=== PATIENT | male | born 1940 | race Caucasian/White ===

== ENCOUNTER 2016-05-17 16:29 | Observation (INO) | payer OTHER ==
[~2016-05-17] VITALS: Ht 182.9 cm; Wt 103.0 kg
[~2016-05-17 16:29] MED LIST: ADVAI250I PO; ALPR1TAB3 PO; AMLO10 PO; ATEN-104 PO; CALC500T21 PO; FOLI400T30 PO; GABA300C3 PO; LISI-587 PO; MULT-65 PO; POTA-243 PO; PRAV20 PO; SERT-132 PO; TRAZ50TA4 PO; Z.0.OXYGENDME NC
[2016-05-17] MEDS ORDERED: SODIUM CHLORIDE 0.9% FLUSH 5 ML FLUSH IVF PRN (18:00)
[2016-05-17 18:10] VITALS: BP 139/78; PULSE 80; RESP 16; O2SAT 97
--- NOTE | 2016-05-17 18:11 | PD ---
HPI Chief Complaint: Fall Time Seen by Provider: 17:55 Travel History International Travel<30 days: No Contact w/Intl Traveler<30days: No Traveled to known affect area: No History of Present Illness HPI 76 year old male presents via EMS for evaluation after fall. According to the paramedics the patient was walking up the steps to his front door when he fell backwards and struck the back of his head against the ground. The paramedics report that his friend witnessed the fall and there was a loss of consciousness briefly. The patient does not recall falling. There was no witnessed seizure activity. He is denying any pain. He denies any dizziness, lightheadedness, headache, neck pain, nausea or vomiting, chest pain, shortness of breath, abdominal pain, numbness or tingling or weakness in the extremities. He is not on any blood thinning medications. He has no complaints at this time. PFSH Past Medical History Blood Disorders: No Anxiety: Yes Depression: No Cancer: Yes (LUNG CANCER chemo and radiation [id number]. remission. Port r chest ) Cardiovascular Problems: Yes (htn) High Cholesterol: No Chemotherapy: Yes Chest Pain: No Congestive Heart Failure: No COPD: Yes Diabetes: No Diminished Hearing: No Endocrine: No Gastrointestinal Disorders: No Genitourinary: No Hepatitis: No Hiatal Hernia: No Hypertension: Yes Immune Disorder: No Implanted Vascular Access Dvce: Yes Musculoskeletal: No Neurologic: No Psychiatric: Yes (ANXIETY) Reproductive: No Respiratory: Yes (COPD) Immunizations Current: Yes Radiation Therapy: Yes Sleep Apnea: No Thyroid Disease: No Past Surgical History Abdominal Surgery: Yes AICD: No Body Medical Devices: L PORT Cardiac Surgery: No Cholecystectomy: Yes Ear Surgery: No Endocrine Surgery: No Eye Surgery: No Genitourinary Surgery: No Gynecologic Surgery: No Joint Replacement: No Neurologic Surgery: No Oral Surgery: No Pacemaker: No Thoracic Surgery: No Other Surgery: Yes Social History Alcohol Use: No Tobacco Use: No Substance Use: No Allergies-Medications (Allergen,Severity, Reaction): Coded Allergies: No Known Allergies (Unverified , 05/17/16) Reported Meds & Prescriptions Reported Meds & Active Scripts Active Reported Folic Acid 400 Mcg Tab 600 Mcg PO DAILY [place] (Hydrocodone-Acetaminophen) 5-325 mg Tab 1 Tab PO DAILY Tizanidine (Tizanidine HCl) 4 Mg Tab 4 Mg PO TID PRN Advair Diskus Inh (Fluticasone-Salmeterol Inh) 250-50 Mcg/Blist Aer 1 Puff INH BID Rinse mouth after use. Klor-Con 10 (Potassium Chloride) 10 Meq Tab 10 Meq PO TID Amlodipine (Amlodipine Besylate) 2.5 Mg Tab 2.5 Mg PO DAILY Lisinopril-Hctz 20-25 Mg Tab 1 Tab PO DAILY Atenolol 100 Mg Tab 100 Mg PO DAILY Sertraline (Sertraline HCl) 50 Mg Tab 50 Mg PO BID Pravastatin 20 Mg Tab 20 Mg PO DAILY Gabapentin 300 Mg Cap 300 Mg PO HS Review of Systems Except as stated in HPI: all other systems reviewed are Neg Physical Exam Narrative GENERAL: Pleasant well developed well-nourished male in no acute distress cervical collar in place. Alert and oriented to person, place, time. SKIN: Warm and dry. HEAD: Atraumatic. Normocephalic. EYES: Pupils equal and round. No scleral icterus. No injection or drainage. ENT: No nasal bleeding or discharge. Mucous membranes pink and moist. NECK: Trachea midline. No JVD. CARDIOVASCULAR: Regular rate and rhythm. No murmur appreciated. RESPIRATORY: No accessory muscle use. Clear to auscultation. Breath sounds equal bilaterally. GASTROINTESTINAL: Abdomen soft, non-tender, nondistended. Hepatic and splenic margins not palpable. MUSCULOSKELETAL: No obvious deformities. NEUROLOGICAL: Awake and alert. No obvious cranial nerve deficits. Motor grossly within normal limits. Normal speech. PSYCHIATRIC: Appropriate mood and affect; insight and judgment normal. Data Data Last Documented VS Vital Signs Date Time Temp Pulse Resp B/P Pulse Ox O2 Delivery O2 Flow Rate FiO2 05/17/16 19:33 97.7 05/17/16 18:48 16 97 Room Air 05/17/16 18:10 80 139/78 Orders Electrocardiogram (05/17/16 17:50) Complete Blood Count With Diff (05/17/16 17:50) Comprehensive Metabolic Panel (05/17/16 17:50) Magnesium (Mg) (05/17/16 17:50) Act Partial Throm Time (Ptt) (05/17/16 17:50) Prothrombin Time / Inr (Pt) (05/17/16 17:50) Ct Brain W/O Iv Contrast(Rout) (05/17/16 17:50) Ct Cerv Spine W/O Contrast (05/17/16 17:50) Ecg Monitoring (05/17/16 17:50) Iv Access Insert/Monitor (05/17/16 17:50) Oximetry (05/17/16 17:50) Sodium Chloride 0.9% Flush (Ns Flush) (05/17/16 18:00) Urinalysis - C+S If Indicated (05/17/16 20:21) Admit Order (Ed Use Only) (05/17/16 21:04) Labs Laboratory Tests Test 05/17/16 18:09 White Blood Count 7.3 TH/MM3 Red Blood Count 4.40 MIL/MM3 Hemoglobin 12.8 GM/DL Hematocrit 37.9 % Mean Corpuscular Volume 86.1 FL Mean Corpuscular Hemoglobin 29.0 PG Mean Corpuscular Hemoglobin 33.7 % Concent Red Cell Distribution Width 15.0 % Platelet Count 166 TH/MM3 Mean Platelet Volume 8.7 FL Neutrophils (%) (Auto) 71.2 % Lymphocytes (%) (Auto) 16.9 % Monocytes (%) (Auto) 7.7 % Eosinophils (%) (Auto) 3.3 % Basophils (%) (Auto) 0.9 % Neutrophils # (Auto) 5.2 TH/MM3 Lymphocytes # (Auto) 1.2 TH/MM3 Monocytes # (Auto) 0.6 TH/MM3 Eosinophils # (Auto) 0.2 TH/MM3 Basophils # (Auto) 0.1 TH/MM3 CBC Comment DIFF FINAL Differential Comment Prothrombin Time 10.6 SEC Prothromb Time International 1.0 RATIO Ratio Activated Partial 28.0 SEC Thromboplast Time Sodium Level 139 MEQ/L Potassium Level 3.8 MEQ/L Chloride Level 100 MEQ/L Carbon Dioxide Level 32.8 MEQ/L Anion Gap 6 MEQ/L Blood Urea Nitrogen 16 MG/DL Creatinine 1.00 MG/DL Estimat Glomerular Filtration 73 ML/MIN Rate Random Glucose 91 MG/DL Calcium Level 9.0 MG/DL Magnesium Level 2.3 MG/DL Total Bilirubin 0.3 MG/DL Aspartate Amino Transf 18 U/L (AST/SGOT) Alanine Aminotransferase 22 U/L (ALT/SGPT) Alkaline Phosphatase 66 U/L Total Protein 7.3 GM/DL Albumin 3.5 GM/DL MDM Medical Decision Making Medical Screen Exam Complete: Yes Emergency Medical Condition: Yes Medical Record Reviewed: Yes Interpretation(s) CT brain negative CT cervical spine CONCLUSION: 1. Degenerative changes throughout the cervical spine as described above. 2. No definite acute bony abnormality is seen. 3. Multiple small lucent lesions seen throughout the cervical vertebral bodies. These are nonspecific. They could simply be manifestations of osteopenia. Underlying conditions such as metastatic disease or multiple myeloma could have a similar appearance. EKG first degree AV block Differential Diagnosis Concussion, intracranial hemorrhage, seizure, syncope, dehydration, arrhythmia Narrative Course 76-year-old male presents after a reported fall walking up the steps to his house and witnessed by a friend with loss of consciousness every struck the ground. The patient appears to be amnesic to the fall. The patient has no medical complaints at this time and he is alert and oriented with no focal neurologic deficits. Plan is for basic lab work, EKG and ECG monitoring, CT of the brain and cervical spine. Discussed with Dr. Knight who agrees with plan of care. The patient's lab work and imaging studies of the area. CT of the brain is negative. CT of the cervical spine reveals no acute fractures. There is multiple lucent lesions and the cervical spine CT which could be a sign of osteopenia or metastasis or multiple myeloma per the reading radiologist per the patient does report that he has a history of lung cancer in remission, last chemotherapy and radiation was 2 years ago. He reports that in the past to see an oncologist at [facility] Dr. Anderson but he recently left and he is trying to get referred to oncology at [place]. No known history of metastasis. Discussed the importance of follow -up regarding this issue. Given the patient's persistent amnesia to the events of the day, discussed the possibility of admitting for observation versus going home with the patient's partner and the patient and his partner would prefer to have the patient admitted. Discussed with Dr. Blackwood who agrees with admission. Procedures EKG Prior to Arrival: Yes Diagnosis Primary Impression: Concussion Qualified Code: S06.0X1A - Concussion, with loss of consciousness of 30 minutes or less, initial encounter Admitting Information Admitting Physician Requests: Observation Slick Grubbs May 17, 2016 18:10
--- NOTE | 2016-05-17 18:32 | RADRPT ---
EXAM DATE/TIME: 05/17/2016 18:19 [facility] COMPARISON: CT BRAIN W/O CONTRAST, January 28, 2016, 10:52. INDICATIONS : Fall and hit back of head today. RADIATION DOSE: 44.16 CTDIvol (mGy) MEDICAL HISTORY : Cardiovascular disease. Carcinoma, lung. SURGICAL HISTORY : None. ENCOUNTER: Initial ACUITY: 1 day PAIN SCALE: 0/10 LOCATION: cranial TECHNIQUE: Multiple contiguous axial images were obtained of the head. Using automated exposure control and adj ustment of the mA and/or kV according to patient size, radiation dose was kept as low as reasonably a chievable to obtain optimal diagnostic quality images. FINDINGS: CEREBRUM: The ventricles are normal for age. No evidence of midline shift, mass lesion, hemorrhage or acute in farction. No extra-axial fluid collections are seen. POSTERIOR FOSSA: The cerebellum and brainstem are intact. The 4th ventricle is midline. The cerebellopontine angle i s unremarkable. EXTRACRANIAL: The visualized portion of the orbits is intact. There is focal soft tissue swelling seen at the poste rior parietal occipital scalp region. SKULL: The calvaria is intact. No evidence of skull fracture. CONCLUSION: 1. No intracranial abnormality seen. 2. Posterior scalp swelling. Neftaly Sandhu MD on May 17, 2016 at 18:29 Board Certified Radiologist. This report was verified electronically.
--- NOTE | 2016-05-17 18:46 | RADRPT ---
EXAM DATE/TIME: 05/17/2016 18:19 [facility] COMPARISON: CT BRAIN W/O CONTRAST, May 17, 2016, 18:19. INDICATIONS : Fall and hit back of head today. RADIATION DOSE: 21.48 CTDIvol (mGy) MEDICAL HISTORY : Cardiovascular disease. Carcinoma, lung. SURGICAL HISTORY : None. ENCOUNTER: Initial ACUITY: 1 day PAIN SCALE: 0/10 LOCATION: Neck TECHNIQUE: Volumetric scanning of the cervical spine was performed. Multiplanar reconstructions in the sagittal, coronal and oblique axial planes were performed. Using automated exposure control and adjustment o f the mA and/or kV according to patient size, radiation dose was kept as low as reasonably achievable to obtain optimal diagnostic quality images. FINDINGS: The craniovertebral junction is intact. The C1 ring is intact. The C1-C2 articulation and dens are i ntact. Cervical vertebral bodies are normal in height and grossly normally aligned. There are sever al small lucencies seen throughout the cervical vertebral bodies including at C2, C3, C4, C5 and C7. These are nonspecific. Underlying lucent bone lesions could have this appearance. Changes of osteo penia or multiple myeloma could potentially have this appearance. They are nonspecific. C2-C3: The disc demonstrates decreased height. A significant impression on the thecal sac is not seen. The neural foramina are normal. There is mild facet hypertrophy. C3-C4: The disc demonstrates decreased height. There is mild bulging. There is uncovertebral and facet hype rtrophy causing some narrowing of the right neural foramina. The left neural foramina appears intact . C4-C5: Disc space is narrowed. There is minimal bulging and osteophytic ridging. There is uncovertebral and facet hypertrophy being worse on the left. Some mild narrowing of the left neural foramina is presen t. The right neural foramina appears patent. C5-C6: The disc space is very prominently narrowed. There is mild posterior osteophytic ridging causing at least a mild impression on the anterior aspect of the thecal sac. There is uncovertebral hypertrophy and facet hypertrophy. The neural foramina are grossly patent. C6-C7: The disc space is relatively preserved. A significant impression on the thecal sac is not seen. The neural foramina are normal. There is bilateral facet hypertrophy. C7-T1: There is minimal anterior subluxation of C7 on T1 in the order of 2 mm. A significant impression on the thecal sac is not seen. The neural foramina are normal. CONCLUSION: 1. Degenerative changes throughout the cervical spine as described above. 2. No definite acute bony abnormality is seen. 3. Multiple small lucent lesions seen throughout the cervical vertebral bodies. These are nonspecific . They could simply be manifestations of osteopenia. Underlying conditions such as metastatic disea se or multiple myeloma could have a similar appearance. Neftaly Sandhu MD on May 17, 2016 at 18:31 Board Certified Radiologist. This report was verified electronically.
[2016-05-17 18:48] VITALS: RESP 16; O2SAT 97
[2016-05-17] MEDS ORDERED: NORC5TAB PO (19:03)
[2016-05-17] MEDS ORDERED: AMLO2.5T PO (19:03)
[2016-05-17] MEDS ORDERED: TIZA4TAB PO (19:03)
[2016-05-17] MEDS ORDERED: PRAV20TA2 PO (19:03)
[2016-05-17] MEDS ORDERED: LISI20TA3 PO (19:03)
[2016-05-17] MEDS ORDERED: FOLI400T PO (19:03)
[2016-05-17] MEDS ORDERED: ADVA250A INH (19:03)
[2016-05-17] MEDS ORDERED: POTA-243 PO (19:03)
[2016-05-17] MEDS ORDERED: ATEN100T PO (19:03)
[2016-05-17] MEDS ORDERED: SERT-132 PO (19:03)
[2016-05-17] MEDS ORDERED: GABA300C5 PO (19:03)
[2016-05-17 19:23] LABS: AUTOMATED NEUTROPHIL # 5.2 TH/MM3 (1.8-7.7); BASOPHIL # 0.1 TH/MM3 (0-0.2); BASOPHIL % 0.9 % (0.0-2.0); EOSINOPHIL # 0.2 TH/MM3 (0-0.4); EOSINOPHIL % 3.3 % (0.0-4.0); HEMATOCRIT 37.9 % (39.0-51.0); HEMO FLAGS DIFF FINAL; LYMPH % 16.9 % (9.0-44.0); LYMPHOCYTE # 1.2 TH/MM3 (1.0-4.8); MEAN CELL VOLUME 86.1 FL (80.0-100.0); MEAN CORPUSCULAR HGB CONC 33.7 % (32.0-36.0); MONO % 7.7 % (0.0-8.0); NEUT % 71.2 % (16.0-70.0); PLATELET COUNT 166 TH/MM3 (150-450); WHITE BLOOD COUNT 7.3 TH/MM3 (4.0-11.0)
[2016-05-17 19:31] LABS: PROTHROMBIN TIME - PATIENT 10.6 SEC (9.8-11.6)
[2016-05-17 19:33] VITALS: TEMP 97.7
[2016-05-17 19:45] LABS: ANION GAP 6 MEQ/L (5-15); AST (GOT) 18 U/L (15-37); BICARBONATE 32.8 MEQ/L (21.0-32.0); BLOOD UREA NITROGEN 16 MG/DL (7-18); CHLORIDE 100 MEQ/L (98-107); GLOMERULAR FILTRATION RATE 73 ML/MIN (>89); MAGNESIUM 2.3 MG/DL (1.5-2.5); POTASSIUM 3.8 MEQ/L (3.5-5.1); SODIUM (NA) 139 MEQ/L (136-145)
[2016-05-17 19:48] LABS: ALKALINE PHOSPHATASE 66 U/L (45-117); ALT (GPT) 22 U/L (12-78); TOTAL BILIRUBIN ADULT 0.3 MG/DL (0.2-1.0)
--- NOTE | 2016-05-17 20:49 | PD ---
Physical Exam Date Seen by Provider: May 17, 2016 Time Seen by Provider: 08:30 Narrative I'm seeing this patient with Slick Grubbs PA-C. This is a 76-year-old gentleman had a mechanical fall while using his walker. He fell backwards striking the back of his head. The patient was amnestic to the event and still is. When patient initially arrived he had some confusion that is somewhat resolved. I also had C-spine CT and brain. Brain CT shows no evidence of acute intracranial abnormalities. There was a cephalohematoma noted in his posterior scalp. Cervical spine CT showed questionable mottling that could be consistent with a neoplastic process. The patient does have a history of lung cancer that was reportedly in an remission. The patient be admitted for observation. On examination he does have a cephalohematoma. He also reports that he's been told he has a UTI although has not started treatment for this. Urinalysis was ordered. Data Data Last Documented VS Vital Signs Date Time Temp Pulse Resp B/P Pulse Ox O2 Delivery O2 Flow Rate FiO2 05/17/16 19:33 97.7 05/17/16 18:48 16 97 Room Air 05/17/16 18:10 80 139/78 Orders Electrocardiogram (05/17/16 17:50) Complete Blood Count With Diff (05/17/16 17:50) Comprehensive Metabolic Panel (05/17/16 17:50) Magnesium (Mg) (05/17/16 17:50) Act Partial Throm Time (Ptt) (05/17/16 17:50) Prothrombin Time / Inr (Pt) (05/17/16 17:50) Ct Brain W/O Iv Contrast(Rout) (05/17/16 17:50) Ct Cerv Spine W/O Contrast (05/17/16 17:50) Ecg Monitoring (05/17/16 17:50) Iv Access Insert/Monitor (05/17/16 17:50) Oximetry (05/17/16 17:50) Sodium Chloride 0.9% Flush (Ns Flush) (05/17/16 18:00) Urinalysis - C+S If Indicated (05/17/16 20:21) Labs Laboratory Tests Test 05/17/16 18:09 White Blood Count 7.3 TH/MM3 Red Blood Count 4.40 MIL/MM3 Hemoglobin 12.8 GM/DL Hematocrit 37.9 % Mean Corpuscular Volume 86.1 FL Mean Corpuscular Hemoglobin 29.0 PG Mean Corpuscular Hemoglobin 33.7 % Concent Red Cell Distribution Width 15.0 % Platelet Count 166 TH/MM3 Mean Platelet Volume 8.7 FL Neutrophils (%) (Auto) 71.2 % Lymphocytes (%) (Auto) 16.9 % Monocytes (%) (Auto) 7.7 % Eosinophils (%) (Auto) 3.3 % Basophils (%) (Auto) 0.9 % Neutrophils # (Auto) 5.2 TH/MM3 Lymphocytes # (Auto) 1.2 TH/MM3 Monocytes # (Auto) 0.6 TH/MM3 Eosinophils # (Auto) 0.2 TH/MM3 Basophils # (Auto) 0.1 TH/MM3 CBC Comment DIFF FINAL Differential Comment Prothrombin Time 10.6 SEC Prothromb Time International 1.0 RATIO Ratio Activated Partial 28.0 SEC Thromboplast Time Sodium Level 139 MEQ/L Potassium Level 3.8 MEQ/L Chloride Level 100 MEQ/L Carbon Dioxide Level 32.8 MEQ/L Anion Gap 6 MEQ/L Blood Urea Nitrogen 16 MG/DL Creatinine 1.00 MG/DL Estimat Glomerular Filtration 73 ML/MIN Rate Random Glucose 91 MG/DL Calcium Level 9.0 MG/DL Magnesium Level 2.3 MG/DL Total Bilirubin 0.3 MG/DL Aspartate Amino Transf 18 U/L (AST/SGOT) Alanine Aminotransferase 22 U/L (ALT/SGPT) Alkaline Phosphatase 66 U/L Total Protein 7.3 GM/DL Albumin 3.5 GM/DL [facility] Medical Record Reviewed: Yes Supervised Visit with JESSICA: Yes Differential Diagnosis Medication treatment no hemorrhage versus concussion versus metastatic neoplastic process of the cervical spine versus UTI Narrative Course 76-year-old gentleman who fell backwards striking the back of his head. Patient is amnestic to event. The patient still amnestic event and has somewhat mild confusion. Given this, he'll be admitted for observation. The findings of the CT scan of the cervical spine were discussed both with the patient and his partner. It is recommended that he follow up with oncology to have this further evaluated. There is a call out to the [facility] for observation [facility]. Diagnosis Primary Impression: Concussion Qualified Code: S06.0X1A - Concussion, with loss of consciousness of 30 minutes or less, initial encounter Additional Impression: UTI (urinary tract infection) John Knight MD May 17, 2016 20:49
[2016-05-17] MEDS ORDERED: MORPHINE SULFATE 4 MG/ML INJ IV PRN (21:30)
[2016-05-17] MEDS ORDERED: BISACODYL 10 MG SUPP PR PRN (21:30)
[2016-05-17] MEDS ORDERED: ACETAMINOPHEN/HYDROcodone 325 MG/5 MG TAB PO PRN (21:30)
[2016-05-17] MEDS ORDERED: SODIUM CHLORIDE 0.9% FLUSH 5 ML FLUSH FLUSH PRN (21:30)
[2016-05-17] MEDS ORDERED: ACETAMINOPHEN 325 MG TAB PO PRN (21:30)
[2016-05-17] MEDS ORDERED: ONDANSETRON HCL 4 MG/2 ML VIAL IVP PRN (21:30)
--- NOTE | 2016-05-17 21:52 | RADRPT ---
EXAM DATE/TIME: 05/17/2016 21:37 [facility] COMPARISON: CHEST SINGLE AP, March 15, 2015, 15:42. INDICATIONS : Trauma to chest post fall today MEDICAL HISTORY : Cardiovascular disease. Carcinoma, lung. SURGICAL HISTORY : Port placement ENCOUNTER: Initial ACUITY: 1 day PAIN SCORE: 0/10 LOCATION: Bilateral chest FINDINGS: A single view of the chest demonstrates some linear density in the lateral left upper lung likely rel ated to scarring or atelectasis. The lungs are otherwise clear. There is a right internal jugular In fuse-a-Port in place. The cardiomediastinal contours are unremarkable. Osseous structures are intact . CONCLUSION: Linear suspected scarring or atelectasis in the left upper lobe. Neftaly Sandhu MD on May 17, 2016 at 21:50 Board Certified Radiologist. This report was verified electronically.
[2016-05-17] MEDS: SODIUM CHLOR 0.9% 1000 ML INJ 1,000 ML IV SCH (23:48)
--- NOTE | 2016-05-18 00:47 | HHI.HP ---
HPI Service [facility] Primary Care Physician Raheem Cheung MD Admission Diagnosis Concussion with amnesia Diagnoses: (1) Fall Diagnosis: Principal (2) Head trauma Diagnosis: Principal (3) COPD (chronic obstructive pulmonary disease) Diagnosis: Principal (4) HTN (hypertension) Diagnosis: Principal Travel History International Travel<30 Days: No Contact w/Intl Traveler <30 Da: No Traveled to Known Affected Are: No History of Present Illness This is a 76-year-old male with a PMH of Anxiety, Lung CA s/p Chemo/Radiation, COPD and HTN who was brought to the ER by EMS after fall w/ head trauma. Per report, pt w/ no recollection of events at the time of arrival to ER. Noted to have witnessed fall while walking up the steps to his house, fell backwards and hit head on cement. Pt now able to recall events, denies any prodromal symptoms , no dizzines, no lightheadedness. States he has peripheral neuropathy and just "overshot" his step. Roommate on scene at time of event, pt denies LOC. On arrival, BP 139/78, HR 80, O2 sat 97% on RA, Afebrile. CBC unremarkable. Chemistry essentially unremarkable except for GFR 73. CT Head with posterior scalp swelling, no acute findings. CT C-Spine with multiple small lucent lesions seen throughout cervical vertebral bodies, nonspecific. Review of Systems Except as stated in HPI: all other systems reviewed are Neg ROS: 14 point review of systems otherwise negative. Past Family Social History Past Medical History PMH: Anxiety, Lung CA s/p Chemo/Radiation, COPD and HTN Past Surgical History PAST SURGICAL HISTORY: Port Placement, Cholecystectomy Allergies: Coded Allergies: No Known Allergies (Unverified , 05/17/16) Family History PAST FAMILY HISTORY: Reviewed. No h/o DM or CAD Social History PAST SOCIAL HISTORY: Negative for alcohol, tobacco or drugs. Physical Exam Vital Signs Vital Signs Date Time Temp Pulse Resp B/P Pulse Ox O2 Delivery O2 Flow Rate FiO2 05/17/16 19:33 97.7 05/17/16 18:48 16 97 Room Air 05/17/16 18:10 80 16 139/78 97 Physical Exam PE: GENERAL: Pleasant elderly white male in no acute distress. HEENT: PERRLA, EOMI. No scleral icterus or conjunctival pallor. No lid lag or facial droop. CARDIOVASCULAR: Regular rate and rhythm. No obvious murmurs to auscultation. No chest tenderness to palpation. RESPIRATORY: No obvious rhonchi or wheezing. Clear to auscultation. Breath sounds equal bilaterally. GASTROINTESTINAL: Abdomen soft, non-tender, nondistended. BS normal. MUSCULOSKELETAL: Extremities without clubbing, cyanosis, or edema. No obvious deformities. NEUROLOGICAL: Awake, alert and oriented x4. No focal neurologic deficits. Moving both upper and lower extremities spontaneously. Laboratory Laboratory Tests Test 05/17/16 18:09 White Blood Count 7.3 Red Blood Count 4.40 Hemoglobin 12.8 Hematocrit 37.9 Mean Corpuscular Volume 86.1 Mean Corpuscular Hemoglobin 29.0 Mean Corpuscular Hemoglobin 33.7 Concent Red Cell Distribution Width 15.0 Platelet Count 166 Mean Platelet Volume 8.7 Neutrophils (%) (Auto) 71.2 Lymphocytes (%) (Auto) 16.9 Monocytes (%) (Auto) 7.7 Eosinophils (%) (Auto) 3.3 Basophils (%) (Auto) 0.9 Neutrophils # (Auto) 5.2 Lymphocytes # (Auto) 1.2 Monocytes # (Auto) 0.6 Eosinophils # (Auto) 0.2 Basophils # (Auto) 0.1 CBC Comment DIFF FINAL Differential Comment Prothrombin Time 10.6 Prothromb Time International 1.0 Ratio Activated Partial 28.0 Thromboplast Time Sodium Level 139 Potassium Level 3.8 Chloride Level 100 Carbon Dioxide Level 32.8 Anion Gap 6 Blood Urea Nitrogen 16 Creatinine 1.00 Estimat Glomerular Filtration 73 Rate Random Glucose 91 Calcium Level 9.0 Magnesium Level 2.3 Total Bilirubin 0.3 Aspartate Amino Transf 18 (AST/SGOT) Alanine Aminotransferase 22 (ALT/SGPT) Alkaline Phosphatase 66 Total Protein 7.3 Albumin 3.5 Result Diagram: 05/17/16180805/17/161808 Assessment and Plan Problem List: (1) Fall ICD Code: W19.XXXA Status: Acute (2) Head trauma ICD Code: S09.90XA Status: Acute (3) COPD (chronic obstructive pulmonary disease) ICD Code: J44.9 Status: Acute (4) HTN (hypertension) ICD Code: I10 Status: Acute Assessment and Plan A/P: 1. Fall: s/p mechanical fall while walking up steps to his home, fell backwards, hit head on cement, LOC reported by EMS, however pt denies. Initially noted to be confused on arrival to ER, now improved w/ full recollection of events. CT Head w/ posterior scalp swelling, no acute findings. CT C-Spine w/ multiple small lucent lesions throughout cervical vertebral bodies, nonspecific, images reviewed by me. Will admit for Observation. PT for eval/tx. 2. Head Trauma: as above, s/p fall w/ +head trauma on cement, CT Head w/ scalp swelling, initially confused +concussive, now improved mental status w/ full recollection of events. 3. COPD: Chronic Respiratory Failure. Stable. Resume home MDI, DuoNeb prn. 4. HTN: Controlled. BP 130's systolic, will monitor. Resume home medications. 5. DVT Prophylaxis: SCD/Teds. 6. Social work for d/c planning as needed. 7. Case discussed w/ ER physician at length. Remedios Blackwood MD May 18, 2016 00:47
[2016-05-18 04:31] LABS: AUTOMATED NEUTROPHIL # 4.2 TH/MM3 (1.8-7.7); BASOPHIL # 0.1 TH/MM3 (0-0.2); BASOPHIL % 2.1 % (0.0-2.0); EOSINOPHIL # 0.2 TH/MM3 (0-0.4); HEMATOCRIT 35.7 % (39.0-51.0); HEMO FLAGS DIFF FINAL; LYMPH % 19.4 % (9.0-44.0); LYMPHOCYTE # 1.2 TH/MM3 (1.0-4.8); MEAN CELL VOLUME 85.8 FL (80.0-100.0); MEAN CORPUSCULAR HEMOGLOBIN 28.2 PG (27.0-34.0); MEAN CORPUSCULAR HGB CONC 32.9 % (32.0-36.0); MONO % 9.4 % (0.0-8.0); NEUT % 66.1 % (16.0-70.0); PLATELET COUNT 165 TH/MM3 (150-450); RED BLOOD COUNT 4.17 MIL/MM3 (4.50-5.90); WHITE BLOOD COUNT 6.4 TH/MM3 (4.0-11.0)
[2016-05-18 05:05] LABS: ALKALINE PHOSPHATASE 50 U/L (45-117); ALT (GPT) 20 U/L (12-78); ANION GAP 4 MEQ/L (5-15); AST (GOT) 14 U/L (15-37); BICARBONATE 33.7 MEQ/L (21.0-32.0); BLOOD UREA NITROGEN 15 MG/DL (7-18); CHLORIDE 102 MEQ/L (98-107); GLOMERULAR FILTRATION RATE 79 ML/MIN (>89); SODIUM (NA) 140 MEQ/L (136-145); TOTAL BILIRUBIN ADULT 0.3 MG/DL (0.2-1.0)
[2016-05-18 05:30] VITALS: BP 136/70; PULSE 78; RESP 16; O2SAT 98
[2016-05-18 07:43] VITALS: BP 159/68; PULSE 58; RESP 16; TEMP 98.1; O2SAT 95
--- NOTE | 2016-05-18 08:43 | EKG ---
Date Performed: 05/17/2016 Time Performed: 19:07:24 PTAGE: 76 years EKG: Sinus rhythm WITH FIRST DEGREE AV BLOCK ABNORMAL ECG PREVIOUS TRACING : 01/22/2016 10.28 DOCTOR: Kumar Donato Interpretating Date/Time 05/18/2016 08:39:46
[2016-05-18] MEDS ORDERED: ATENOLOL 100 MG TAB PO SCH (09:00)
[2016-05-18] MEDS ORDERED: BUDESONIDE-FORMOTEROL 160/4.5 MCG INHALER INH SCH (09:00)
[2016-05-18] MEDS ORDERED: amLODIPine BESYLATE 5 MG TAB PO SCH (09:00)
[2016-05-18] MEDS ORDERED: SERTRALINE HCL 50 MG TAB PO SCH (09:00)
[2016-05-18] MEDS ORDERED: PRAVASTATIN SOD 20 MG TAB PO SCH (09:00)
[2016-05-18] MEDS ORDERED: SODIUM CHLORIDE 0.9% FLUSH 5 ML FLUSH FLUSH SCH (09:00)
[2016-05-18] MEDS: SODIUM CHLOR 0.9% 1000 ML INJ 1,000 ML IV SCH (09:34)
[2016-05-18 10:44] LABS: BACTERIA, URINE FEW /hpf; BLOOD, URINE TRACE (NEG); COMMENT (UR) CULTURE INDICATED; CULTURE IF INDICATED CULTURE INDICATED; GLUCOSE,URINE NEG (NEG); KETONE, URINE NEG (NEG); NITRITE,URINE NEG (NEG); URINE COLOR YELLOW (YELLW/STRAW)
[2016-05-18 11:40] VITALS: BP 172/74; PULSE 57; RESP 18; TEMP 98.2; O2SAT 97
[2016-05-18 13:30] VITALS: BP 143/65; PULSE 56; RESP 16; TEMP 97.6; O2SAT 92
--- NOTE | 2016-05-18 15:36 | HHI.PR ---
Subjective Remarks Follow-up for fall. Patient seen with significant other at bedside. The patient has some dementia baseline, partner takes care of him at home. He does have some chronic neuropathy, and missed a step yesterday. He did hit his head. , Denies any pain. He has no acute complaints at this time, feels well. He walked with PT today. They're agreeable for C. The patient does complain of some burning with urination. However he started seeing his primary care doctor for this, and is already prescribed antibiotics as outpatient. Objective Vitals Vital Signs Date Time Temp Pulse Resp B/P Pulse Ox O2 Delivery O2 Flow Rate FiO2 05/18/16 13:30 97.6 56 16 143/65 92 05/18/16 11:40 98.2 57 18 172/74 97 Nasal Cannula 2 05/18/16 07:43 98.1 58 16 159/68 95 Nasal Cannula 2 05/18/16 05:30 78 16 136/70 98 Room Air 05/17/16 19:33 97.7 05/17/16 18:48 16 97 Room Air 05/17/16 18:10 80 16 139/78 97 I/O 05/17/16 05/17/16 05/17/16 05/18/16 05/18/16 05/18/16 07:00 15:00 23:00 07:00 15:00 23:00 Intake Total 300 ml Balance 300 ml Intake Oral 300 ml # Voids 2 Result Diagram: 05/18/16 0419 05/18/16 0419 Imaging Last Impressions Head CT 05/17/161749 Signed Impressions: Service Date/Time: Tuesday, May 17, 2016 18:19 - CONCLUSION: 1. No intracranial abnormality seen. 2. Posterior scalp swelling. Neftaly Sandhu MD Cervical Spine CT 05/17/161749 Signed Impressions: Service Date/Time: Tuesday, May 17, 2016 18:19 - CONCLUSION: 1. Degenerative changes throughout the cervical spine as described above. 2. No definite acute bony abnormality is seen. 3. Multiple small lucent lesions seen throughout the cervical vertebral bodies. These are nonspecific. They could simply be manifestations of osteopenia. Underlying conditions such as metastatic disease or multiple myeloma could have a similar appearance. Neftaly Sandhu MD Chest X-Ray 05/17/16 0000 Signed Impressions: Service Date/Time: Tuesday, May 17, 2016 21:37 - CONCLUSION: Linear suspected scarring or atelectasis in the left upper lobe. Neftaly Sandhu MD Objective Remarks GENERAL: Well-developed well-nourished. In no acute distress. SKIN: Warm and dry. No lesions noted. HEENT: Normocephalic. Pupils equal and round. Mucous membranes pink and moist. CARDIOVASCULAR: Regular rate and rhythm. No murmur appreciated. RESPIRATORY: No accessory muscle use. Clear to auscultation. Breath sounds equal bilaterally. GASTROINTESTINAL: Abdomen soft, non-tender, nondistended. Bowel sounds x4. MUSCULOSKELETAL: No obvious deformities. No clubbing or cyanosis. No edema. NEUROLOGICAL: Awake and alert. No focal neurological deficits. Moves upper and lower extremities spontaneously. Normal speech. PSYCHIATRIC: Appropriate mood and affect; insight and judgment fair. A/P Problem List: (1) Fall ICD Code: W19.XXXA Status: Acute (2) Head trauma ICD Code: S09.90XA Status: Acute (3) COPD (chronic obstructive pulmonary disease) ICD Code: J44.9 Status: Acute (4) HTN (hypertension) ICD Code: I10 Status: Acute Assessment and Plan 76-year-old male with a PMH of Anxiety, Lung CA s/p Chemo/Radiation, COPD and HTN who was brought to the ER by EMS after fall w/ head trauma Fall: s/p mechanical fall while walking up steps to his home, fell backwards, hit head on cement. Reportedly confused upon arrival to the ED, currently mental baseline. CT Head w/ posterior scalp swelling, no acute findings. CT C- Spine w/ multiple small lucent lesions throughout cervical vertebral bodies, nonspecific, no acute bony abnormalities. PT consulted, recommends [facility], consult case management. UTI: UA with evidence of UTI, urine culture pending. However patient is already have this issue addressed with his PCP, antibiotics waiting to be picked up from pharmacy. IV Rocephin 1. Continue outpatient antibiotics and PCP follow-up. COPD: Chronic, Stable. Continue home MDI, DuoNeb prn. HTN: Reasonably Controlled. Continue home medications. DVT Prophylaxis: SCD/Teds. Plan of care discussed with Dr. Bowles and case management Discharge Planning Discharge patient to home with [facility] Condition on discharge: Improved Heart healthy Diet as tolerated Regular activity Rx written: None Follow-up with primary care physician Kaden Chahal May 18, 2016 15:36
--- NOTE | 2016-05-18 15:38 | HHI.FF ---
Face to Face Verification Diagnosis: (1) HTN (hypertension) (2) Fall (3) UTI (urinary tract infection) (4) Concussion (5) Head trauma (6) COPD (chronic obstructive pulmonary disease) Physical Therapy Order: Evaluate and Treat, Improve ambulation, Strength and gait training Home Health Nursing Order: Medical education Signs/symptoms of disease process Medication education-adverse effect Nursing assessment with vital signs I have seen patient Kiet Yuan on 05/18/16. My clinical findings support the need for the requested home health care services because: Ltd mobility - disease progression Deconditioned w/ increased weakness Impaired cognition/judgement High risk of falls I certify that my clinical findings support that this patient is homebound because: Impaired cognitive ability/safety Hx COPD- exertion dyspnea/weakness Unsteady gait/balance Kaden Chahal May 18, 2016 15:38
[2016-05-18] MEDS ORDERED: cefTRIAXone INJ 1,000 MG in SODIUM CHLORIDE 0.9% INJ 100 ML IV ONE (16:00)
[2016-05-18 16:09] VITALS: BP 138/70; PULSE 57; RESP 16; TEMP 97.7; O2SAT 94
[2016-05-18] MEDS ORDERED: GABAPENTIN 300 MG CAP PO SCH (21:00)
== END 2016-05-18 17:33 | disposition home or self-care (01) ==
LOC: NEPE 16:29 → NEDA 21:06 → NEDH 05-18 01:06 → NEPGCP 05-18 13:12
PROVIDERS: ADMIT Hospitalist; ATTEND Hospitalist
DX: S06.0X1A Concussion with loss of consciousness of 30 minutes or less, initial encounter (principal); N39.0 Urinary tract infection, site not specified; B96.4 Proteus (mirabilis) (morganii) as the cause of diseases classified elsewhere; I10 Essential (primary) hypertension; J44.9 Chronic obstructive pulmonary disease, unspecified; J96.10 Chronic respiratory failure, unspecified whether with hypoxia or hypercapnia; R94.31 Abnormal electrocardiogram [ECG] [EKG]; C79.51 Secondary malignant neoplasm of bone; G62.9 Polyneuropathy, unspecified; F03.90 Unspecified dementia, unspecified severity, without behavioral disturbance, psychotic disturbance, mood disturbance, and anxiety; Z92.21 Personal history of antineoplastic chemotherapy; Z92.3 Personal history of irradiation
CPT/HCPCS: 70450; 71010; 72125; 80053; 81001; 83735; 85025; 85610; 85730; 87077; 87086; 87186; 93005; 97162; 99285; G0378; G8987; G8988; J0696; J7030

== ENCOUNTER 2016-05-23 13:03 | Emergency (ER) | payer OTHER ==
[~2016-05-23] VITALS: Ht 182.9 cm; Wt 100.0 kg
[~2016-05-23 13:03] MED LIST changes: +ADVA250A INH; -ADVAI250I PO; -ALPR1TAB3 PO; -AMLO10 PO; +AMLO2.5T PO; -ATEN-104 PO; +ATEN100T PO; -CALC500T21 PO; +FOLI400T PO; -FOLI400T30 PO; -GABA300C3 PO; +GABA300C5 PO; -LISI-587 PO; +LISI20TA3 PO; -MULT-65 PO; +NORC5TAB PO; -PRAV20 PO; +PRAV20TA2 PO; +TIZA4TAB PO; -TRAZ50TA4 PO; -Z.0.OXYGENDME NC
[2016-05-23 13:08] VITALS: BP 160/69; PULSE 59; RESP 20; TEMP 97.8; O2SAT 97
[2016-05-23] MEDS ORDERED: CIPR250T52 PO (13:26)
--- NOTE | 2016-05-23 13:43 | PD ---
HPI Chief Complaint: Medical Clearance Time Seen by Provider: 13:43 Travel History International Travel<30 days: No Contact w/Intl Traveler<30days: No Traveled to known affect area: No History of Present Illness HPI 76-year-old male presents to the emergency department with his for evaluation of blood clot. He states that he found a blood clot in his brief this morning and is unsure if it was from his urine or stool. He denies any dysuria or urinary complaints. Patient's does state that he fell the night he was discharged from the hospital, May 18. He was discharged after suffering a concussion from a fall. His states that he has not fallen since. He has a witness the fall states he did not hit his head or lose consciousness. The patient denies any headache or visual changes. No neck pain or back pain. No abdominal pain. No vomiting. He does report left rib pain after the fall. He states the pain is lessening since the fall. He has a history of COPD and is on 3.5 L O2 nasal cannula at night. He denies any current shortness of breath. He also has a history of lung cancer which he is in remission for. His at bedside states that he is his caregiver it would like to remain his caregiver. He is not interested in placement for the patient. The patient is alert and oriented. PFSH Past Medical History Blood Disorders: No Anxiety: Yes Depression: No Cancer: Yes (LUNG CANCER chemo and radiation [id number]. remission. Port r chest ) Cardiovascular Problems: Yes (htn) High Cholesterol: No Chemotherapy: Yes Chest Pain: No Congestive Heart Failure: No COPD: Yes Diabetes: No Diminished Hearing: No Endocrine: No Gastrointestinal Disorders: No Genitourinary: No Hepatitis: No Hiatal Hernia: No Hypertension: Yes Immune Disorder: No Implanted Vascular Access Dvce: Yes Musculoskeletal: No Neurologic: No Psychiatric: Yes (ANXIETY) Reproductive: No Respiratory: Yes (COPD) Immunizations Current: Yes Radiation Therapy: Yes Sleep Apnea: No Thyroid Disease: No Tetanus Vaccination: > 5 Years Past Surgical History Abdominal Surgery: Yes AICD: No Body Medical Devices: L PORT Cardiac Surgery: No Cholecystectomy: Yes Ear Surgery: No Endocrine Surgery: No Eye Surgery: No Genitourinary Surgery: No Gynecologic Surgery: No Joint Replacement: No Neurologic Surgery: No Oral Surgery: No Pacemaker: No Thoracic Surgery: No Other Surgery: Yes (GALLBLADDER REMOVAL, CAROTID CLEARED, LAMENECTOMY) Social History Alcohol Use: No Tobacco Use: No Substance Use: No Allergies-Medications (Allergen,Severity, Reaction): Coded Allergies: No Known Allergies (Unverified , 05/23/16) Reported Meds & Prescriptions Reported Meds & Active Scripts Active Reported Cipro (Ciprofloxacin HCl) 250 Mg Tab 250 Mg PO BID Folic Acid 400 Mcg Tab 600 Mcg PO DAILY Tizanidine (Tizanidine HCl) 4 Mg Tab 4 Mg PO TID PRN Advair Diskus Inh (Fluticasone-Salmeterol Inh) 250-50 Mcg/Blist Aer 1 Puff INH BID Rinse mouth after use. Klor-Con 10 (Potassium Chloride) 10 Meq Tab 10 Meq PO TID Amlodipine (Amlodipine Besylate) 2.5 Mg Tab 2.5 Mg PO DAILY Lisinopril-Hctz 20-25 Mg Tab 1 Tab PO DAILY Atenolol 100 Mg Tab 100 Mg PO DAILY Sertraline (Sertraline HCl) 50 Mg Tab 50 Mg PO BID Pravastatin 20 Mg Tab 20 Mg PO DAILY Gabapentin 300 Mg Cap 300 Mg PO HS Review of Systems Except as stated in HPI: all other systems reviewed are Neg Physical Exam Narrative GENERAL: Well-developed well-nourished elderly male patient, afebrile. SKIN: Warm and dry. HEAD: Normocephalic. Atraumatic. ENT: Mucosa pink and moist. No erythema or exudates. No uvular edema. No uvular , palatal, or tonsillar deviation. Airway patent. Nasal turbinates appear normal without nasal blood, purulent drainage or septal hematoma. Bilateral tympanic membranes are clear without erythema or perforation. EYES: No scleral icterus. No injection or drainage. PERRLA. EOM intact. NECK: Supple, trachea midline. No JVD or lymphadenopathy. CARDIOVASCULAR: Regular rate and rhythm without murmurs, gallops, or rubs. RESPIRATORY: Breath sounds equal bilaterally. No accessory muscle use. GASTROINTESTINAL: Abdomen soft, non-tender, nondistended. No abdominal pain to palpation. MUSCULOSKELETAL: No cyanosis, or edema. Patient has left-sided anterior rib pain to palpation. BACK: Nontender without obvious deformity. No CVA tenderness. No midline spinal tenderness. RECTAL EXAM: No masses or tenderness, stool is brown. Rectal exam was done with nurse at bedside. Data Data Last Documented VS Vital Signs Date Time Temp Pulse Resp B/P Pulse Ox O2 Delivery O2 Flow Rate FiO2 05/23/16 14:14 56 18 128/60 98 Nasal Cannula 3 05/23/16 13:08 97.8 Orders Electrocardiogram (05/23/16 13:40) Complete Blood Count With Diff (05/23/16 13:40) Comprehensive Metabolic Panel (05/23/16 13:40) Magnesium (Mg) (05/23/16 13:40) Ckmb (Isoenzyme) Profile (05/23/16 13:40) Troponin I (05/23/16 13:40) Urinalysis - C+S If Indicated (05/23/16 13:40) Chest, Single Ap (05/23/16 13:40) Ecg Monitoring (05/23/16 13:40) Iv Access Insert/Monitor (05/23/16 13:40) Oximetry (05/23/16 13:40) Sodium Chloride 0.9% Flush (Ns Flush) (05/23/16 13:45) Sodium Chlorid 0.9% 500 Ml Inj (Ns 500 M (05/23/16 15:00) Ct Abd/Pel W/O Iv Contrast (05/23/16 ) Labs Laboratory Tests Test 05/23/16 05/23/16 14:00 15:00 White Blood Count 7.2 TH/MM3 Red Blood Count 4.29 MIL/MM3 Hemoglobin 12.3 GM/DL Hematocrit 36.9 % Mean Corpuscular Volume 85.9 FL Mean Corpuscular Hemoglobin 28.7 PG Mean Corpuscular Hemoglobin 33.4 % Concent Red Cell Distribution Width 15.2 % Platelet Count 167 TH/MM3 Mean Platelet Volume 7.9 FL Neutrophils (%) (Auto) 69.4 % Lymphocytes (%) (Auto) 16.1 % Monocytes (%) (Auto) 10.0 % Eosinophils (%) (Auto) 3.5 % Basophils (%) (Auto) 1.0 % Neutrophils # (Auto) 5.0 TH/MM3 Lymphocytes # (Auto) 1.2 TH/MM3 Monocytes # (Auto) 0.7 TH/MM3 Eosinophils # (Auto) 0.2 TH/MM3 Basophils # (Auto) 0.1 TH/MM3 CBC Comment DIFF FINAL Differential Comment Sodium Level 143 MEQ/L Potassium Level 4.1 MEQ/L Chloride Level 105 MEQ/L Carbon Dioxide Level 33.2 MEQ/L Anion Gap 5 MEQ/L Blood Urea Nitrogen 18 MG/DL Creatinine 0.98 MG/DL Estimat Glomerular Filtration 74 ML/MIN Rate Random Glucose 98 MG/DL Calcium Level 9.3 MG/DL Magnesium Level 2.0 MG/DL Total Bilirubin 0.3 MG/DL Aspartate Amino Transf 19 U/L (AST/SGOT) Alanine Aminotransferase 27 U/L (ALT/SGPT) Alkaline Phosphatase 56 U/L Total Creatine Kinase 39 U/L Troponin I LESS THAN 0.02 NG/ML Total Protein 6.8 GM/DL Albumin 3.3 GM/DL Urine Color YELLOW Urine Turbidity HAZY Urine pH 6.0 Urine Specific [place] 1.015 Urine Protein NEG mg/dL Urine Glucose (UA) NEG mg/dL Urine Ketones NEG mg/dL Urine Occult Blood MOD Urine Nitrite NEG Urine Bilirubin NEG Urine Urobilinogen LESS THAN 2.0 MG/DL Urine Leukocyte Esterase NEG Urine RBC 45 /hpf Urine WBC 3 /hpf Urine Squamous Epithelial <1 /hpf Cells Microscopic Urinalysis Comment CULT NOT INDICATED MDM Medical Decision Making Medical Screen Exam Complete: Yes Emergency Medical Condition: Yes Medical Record Reviewed: Yes Interpretation(s) Last Impressions Chest X-Ray 05/23/16 1340 Signed Impressions: Service Date/Time: Monday, May 23, 2016 13:51 - CONCLUSION: Stable scar in the left upper lobe. Otherwise, no acute finding is identified. Neftaly Dean MD CT abdomen/pelvis - CONCLUSION: 1. No definite renal stones are identified. There is a 3 mm renal stone versus vascular calcification in the right lower pole kidney. There are no signs of urinary obstruction. 2. There are 2 cystic lesion the left kidney which have features characteristic of simple renal cysts. 3. Nonacute findings include severe atherosclerotic disease, small hiatal hernia , and sigmoid diverticulosis. Differential Diagnosis Hematuria versus hematochezia versus electrolyte abnormality versus dehydration versus rib fracture versus pneumonia versus pneumothorax versus rib contusion Narrative Course 76-year-old male presents to the emergency department stating he found a blood clot in his brief this morning is unsure became him his rectum orthopedist. He denies any associated complaints. He does report left-sided rib pain after a fall that occurred on May 18, 5 days ago. He denies any other complaints other than generalized weakness which is an ongoing complaint. EKG, CBC, CMP, magnesium, CK, troponin, UA, chest x-ray are ordered and pending. EKG shows sinus bradycardia with first degree AV block, HR 54, unchanged since previous EKG. CBC shows hemoglobin 12.3, hematocrit 36.9 which is stable. CMP shows no acute abnormality. Magnesium is 2.0. CK is 39. Troponin is less than 0.02. UA shows moderate occult blood, 45 RBCs, no evidence of acute infection. Chest x-ray shows stable scar in the left upper lobe. Otherwise, no acute finding is identified. Ct abdomen/pelvis is ordered and shows 1. No definite renal stones are identified. There is a 3 mm renal stone versus vascular calcification in the right lower pole kidney. There are no signs of urinary obstruction; 2. There are 2 cystic lesion the left kidney which have features characteristic of simple renal cysts; 3. Nonacute findings include severe atherosclerotic disease , small hiatal hernia, and sigmoid diverticulosis. I discussed the case with my attending physician, Dr. Browning who agrees and plan, workup, disposition. The patient is stable for discharge home. He is instructed follow-up with urologist for hematuria. Otherwise, he feels fine. Patient is instructed to return for any acute worsening of symptoms. Patient and his spouse verbalize agreement. The patient was discharged in stable condition with instructions, including return instructions and follow up instructions. HemaPrompt Point of Care Internal Pos. & Neg. Controls: Passed Fecal Specimen Occult Blood: Negative Diagnosis Primary Impression: Hematuria Additional Impression: Rib contusion Qualified Code: S20.212A - Rib contusion, left, initial encounter Referrals: Urologist call for appointment Patient Instructions: General Instructions, Hematuria (ED), Rib Contusion (ED) Additional Instructions: Follow up with urologist. Return to the emergency department for any acute, worsening of symptoms. Med/Other Pt SpecificInfo: No Change to Meds Disposition: 01 DISCHARGE HOME Condition: Stable EricNataliia May 23, 2016 13:43
[2016-05-23 13:45] VITALS: RESP 20; O2SAT 97
[2016-05-23] MEDS: SODIUM CHLORIDE 0.9% FLUSH 5 ML FLUSH IVF PRN ×2 (13:45→16:00)
[2016-05-23 14:14] VITALS: BP 128/60; PULSE 56; RESP 18; O2SAT 98
[2016-05-23 14:19] LABS: BASOPHIL # 0.1 TH/MM3 (0-0.2); EOSINOPHIL # 0.2 TH/MM3 (0-0.4); EOSINOPHIL % 3.5 % (0.0-4.0); HEMATOCRIT 36.9 % (39.0-51.0); HEMO FLAGS DIFF FINAL; LYMPH % 16.1 % (9.0-44.0); LYMPHOCYTE # 1.2 TH/MM3 (1.0-4.8); MEAN CELL VOLUME 85.9 FL (80.0-100.0); MEAN CORPUSCULAR HEMOGLOBIN 28.7 PG (27.0-34.0); MEAN CORPUSCULAR HGB CONC 33.4 % (32.0-36.0); NEUT % 69.4 % (16.0-70.0); PLATELET COUNT 167 TH/MM3 (150-450); RED BLOOD COUNT 4.29 MIL/MM3 (4.50-5.90); RED CELL DISTRIBUTION WIDTH 15.2 % (11.6-17.2); WHITE BLOOD COUNT 7.2 TH/MM3 (4.0-11.0)
[2016-05-23 14:33] LABS: ALT (GPT) 27 U/L (12-78); ANION GAP 5 MEQ/L (5-15); AST (GOT) 19 U/L (15-37); BICARBONATE 33.2 MEQ/L (21.0-32.0); BLOOD UREA NITROGEN 18 MG/DL (7-18); CHLORIDE 105 MEQ/L (98-107); GLOMERULAR FILTRATION RATE 74 ML/MIN (>89); POTASSIUM 4.1 MEQ/L (3.5-5.1); SODIUM (NA) 143 MEQ/L (136-145)
[2016-05-23 14:37] LABS: ALKALINE PHOSPHATASE 56 U/L (45-117); TOTAL BILIRUBIN ADULT 0.3 MG/DL (0.2-1.0)
[2016-05-23 14:39] LABS: CREATINE KINASE 39 U/L (39-308)
--- NOTE | 2016-05-23 14:49 | RADRPT ---
EXAM DATE/TIME: 05/23/2016 13:51 [facility] COMPARISON: CHEST PA & LAT, January 22, 2016, 12:25. CHEST SINGLE AP, May 17, 2016, 21:37. INDICATIONS : Chest pain. MEDICAL HISTORY : Cardiovascular disease. Carcinoma, lung. SURGICAL HISTORY : Infusaport placement ENCOUNTER: Initial ACUITY: 1 day PAIN SCORE: 0/10 LOCATION: Bilateral chest FINDINGS: Portable AP view of the chest demonstrates a normal-sized cardiac silhouette. No effusion, consolidat ion, or pneumothorax is visualized. Linear opacity left upper lobe is stable. The bones and soft tiss ues demonstrate no acute abnormality. Right chest wall [id number] is present with distal tip in th e superior vena cava. CONCLUSION: Stable scar in the left upper lobe. Otherwise, no acute finding is identified. Neftaly Dean MD on May 23, 2016 at 14:40 Board Certified Radiologist. This report was verified electronically.
[2016-05-23] MEDS ORDERED: SODIUM CHLORID 0.9% 500 ML INJ 500 ML IV ONE (15:00)
[2016-05-23 15:31] LABS: BLOOD, URINE MOD (NEG); COMMENT (UR) CULT NOT INDICATED; CULTURE IF INDICATED CULT NOT INDICATED; GLUCOSE,URINE NEG (NEG); KETONE, URINE NEG (NEG); NITRITE,URINE NEG (NEG); SQUAMOUS EPITHELIAL CELL URINE <1 /hpf (0-5); URINE COLOR YELLOW (YELLW/STRAW)
--- NOTE | 2016-05-23 16:28 | RADRPT ---
EXAM DATE/TIME: 05/23/2016 16:00 [facility] COMPARISON: No previous studies available for comparison. INDICATIONS : Hematuria and abdominal pain. ORAL CONTRAST: No oral contrast ingested. RADIATION DOSE: 8.54 CTDIvol (mGy) MEDICAL HISTORY : Cardiovascular disease. Hypertension. Carcinoma, lung. SURGICAL HISTORY : Cholecystectomy. Lumbar surgery. ENCOUNTER: Initial ACUITY: 1 day PAIN SCALE: 6/10 LOCATION: Bilateral flank TECHNIQUE: Volumetric scanning of the abdomen and pelvis was performed. Using automated exposure control and ad justment of the mA and/or kV according to patient size, radiation dose was kept as low as reasonably achievable to obtain optimal diagnostic quality images. FINDINGS: LOWER LUNGS: The visualized lower lungs are clear. LIVER: Homogeneous density without lesion. There is no dilation of the biliary tree. Patient is post jake cystectomy clips in the gallbladder fossa. SPLEEN: Enlarged measuring 15 cm in length. No focal lesion is seen. PANCREAS: Within normal limits. KIDNEYS: Normal in size and shape. There is no mass or hydronephrosis. There is a 3 mm density in the region of the right lower pole collecting system. Based on the appearance I favor vascular calcification ove r renal stone. There are 2 low-density lesions in the left kidney measuring 6.7 cm and 2.[address] density measurements characteristic of simple cyst. ADRENAL GLANDS: Within normal limits. VASCULAR: There is no aortic aneurysm. There is severe atherosclerotic disease. BOWEL/MESENTERY: The stomach, small bowel, and colon demonstrate no acute abnormality. There is sigmoid diverticulosi s. There is no free intraperitoneal air or fluid. A small hiatal hernia is present. ABDOMINAL WALL: Within normal limits. RETROPERITONEUM: There is no lymphadenopathy. BLADDER: No wall thickening or mass. REPRODUCTIVE: Within normal limits. INGUINAL: There is no lymphadenopathy or hernia. MUSCULOSKELETAL: There are degenerative changes of the lumbar spine with severe facet arthrosis inferiorly. There has been prior laminectomy at L4-L5 and L5-S1. CONCLUSION: 1. No definite renal stones are identified. There is a 3 mm renal stone versus vascular calcification in the right lower pole kidney. There are no signs of urinary obstruction. 2. There are 2 cystic lesion the left kidney which have features characteristic of simple renal cysts . 3. Nonacute findings include severe atherosclerotic disease, small hiatal hernia, and sigmoid diverti culosis. Neftaly Dean MD on May 23, 2016 at 16:20 Board Certified Radiologist. This report was verified electronically.
[2016-05-23 16:37] VITALS: BP 130/77; TEMP 97.8
--- NOTE | 2016-05-23 17:02 | PD ---
Physical Exam Narrative GENERAL: Well-nourished, well-developed patient. Well-appearing SKIN: Warm and dry. HEAD: Normocephalic and atraumatic. EYES: No injection or drainage. ENT: No nasal drainage noted. NECK: Supple, trachea midline. CARDIOVASCULAR: Regular rate and rhythm RESPIRATORY: No increased effort. No accessory muscle use. NEUROLOGICAL: Awake and alert. Motor and sensory grossly within normal limits. Normal speech. Data Data Last Documented VS Vital Signs Date Time Temp Pulse Resp B/P Pulse Ox O2 Delivery O2 Flow Rate FiO2 05/23/16 14:14 56 18 128/60 98 Nasal Cannula 3 05/23/16 13:08 97.8 Orders Electrocardiogram (05/23/16 13:40) Complete Blood Count With Diff (05/23/16 13:40) Comprehensive Metabolic Panel (05/23/16 13:40) Magnesium (Mg) (05/23/16 13:40) Ckmb (Isoenzyme) Profile (05/23/16 13:40) Troponin I (05/23/16 13:40) Urinalysis - C+S If Indicated (05/23/16 13:40) Chest, Single Ap (05/23/16 13:40) Ecg Monitoring (05/23/16 13:40) Iv Access Insert/Monitor (05/23/16 13:40) Oximetry (05/23/16 13:40) Sodium Chloride 0.9% Flush (Ns Flush) (05/23/16 13:45) Sodium Chlorid 0.9% 500 Ml Inj (Ns 500 M (05/23/16 15:00) Ct Abd/Pel W/O Iv Contrast (05/23/16 ) Labs Laboratory Tests Test 05/23/16 05/23/16 14:00 15:00 White Blood Count 7.2 TH/MM3 Red Blood Count 4.29 MIL/MM3 Hemoglobin 12.3 GM/DL Hematocrit 36.9 % Mean Corpuscular Volume 85.9 FL Mean Corpuscular Hemoglobin 28.7 PG Mean Corpuscular Hemoglobin 33.4 % Concent Red Cell Distribution Width 15.2 % Platelet Count 167 TH/MM3 Mean Platelet Volume 7.9 FL Neutrophils (%) (Auto) 69.4 % Lymphocytes (%) (Auto) 16.1 % Monocytes (%) (Auto) 10.0 % Eosinophils (%) (Auto) 3.5 % Basophils (%) (Auto) 1.0 % Neutrophils # (Auto) 5.0 TH/MM3 Lymphocytes # (Auto) 1.2 TH/MM3 Monocytes # (Auto) 0.7 TH/MM3 Eosinophils # (Auto) 0.2 TH/MM3 Basophils # (Auto) 0.1 TH/MM3 CBC Comment DIFF FINAL Differential Comment Sodium Level 143 MEQ/L Potassium Level 4.1 MEQ/L Chloride Level 105 MEQ/L Carbon Dioxide Level 33.2 MEQ/L Anion Gap 5 MEQ/L Blood Urea Nitrogen 18 MG/DL Creatinine 0.98 MG/DL Estimat Glomerular Filtration 74 ML/MIN Rate Random Glucose 98 MG/DL Calcium Level 9.3 MG/DL Magnesium Level 2.0 MG/DL Total Bilirubin 0.3 MG/DL Aspartate Amino Transf 19 U/L (AST/SGOT) Alanine Aminotransferase 27 U/L (ALT/SGPT) Alkaline Phosphatase 56 U/L Total Creatine Kinase 39 U/L Troponin I LESS THAN 0.02 NG/ML Total Protein 6.8 GM/DL Albumin 3.3 GM/DL Urine Color YELLOW Urine Turbidity HAZY Urine pH 6.0 Urine Specific [place] 1.015 Urine Protein NEG mg/dL Urine Glucose (UA) NEG mg/dL Urine Ketones NEG mg/dL Urine Occult Blood MOD Urine Nitrite NEG Urine Bilirubin NEG Urine Urobilinogen LESS THAN 2.0 MG/DL Urine Leukocyte Esterase NEG Urine RBC 45 /hpf Urine WBC 3 /hpf Urine Squamous Epithelial <1 /hpf Cells Microscopic Urinalysis Comment CULT NOT INDICATED MDM Supervised Visit with JESSICA: Yes Interpretation(s) CBC & BMP Diagram 05/23/16 14:00 UA with hematuria Last 24 hours Impressions Chest X-Ray 05/23/16 1340 Signed Impressions: Service Date/Time: Monday, May 23, 2016 13:51 - CONCLUSION: Stable scar in the left upper lobe. Otherwise, no acute finding is identified. Neftaly Dean MD Abdomen/Pelvis CT 05/23/16 0000 Signed Impressions: Service Date/Time: Monday, May 23, 2016 16:00 - CONCLUSION: 1. No definite renal stones are identified. There is a 3 mm renal stone versus vascular calcification in the right lower pole kidney. There are no signs of urinary obstruction. 2. There are 2 cystic lesion the left kidney which have features characteristic of simple renal cysts. 3. Nonacute findings include severe atherosclerotic disease, small hiatal hernia, and sigmoid diverticulosis. Neftaly Dean MD Narrative Course I, Dr. dolan, have reviewed the advance practice practitioner's documentation and am in agreement, met with the patient face to face, made the diagnosis, and the medical decision making was done by me. *My assessment and Findings: 76-year-old male presents with hematuria versus hematochezia. Patient has hematuria here without set cause. Given copy of CAT scan for follow-up. Advised for urology follow-up which he agrees to. Given return instructions. Diagnosis Primary Impression: Hematuria Additional Impression: Rib contusion Qualified Code: S20.212A - Rib contusion, left, initial encounter Referrals: Urologist call for appointment Patient Instructions: General Instructions, Hematuria (ED), Rib Contusion (ED) Departure Forms: Tests/Procedures Additional Instruction: Follow up with urologist. Return to the emergency department for any acute, worsening of symptoms. Med/Other Pt SpecificInfo: No Change to Meds Disposition: 01 DISCHARGE HOME Condition: Stable Yolanda Dolan MD May 23, 2016 17:02
--- NOTE | 2016-05-24 22:29 | EKG ---
Date Performed: 05/23/2016 Time Performed: 14:12:58 PTAGE: 76 years EKG: SINUS BRADYCARDIA WITH FIRST DEGREE AV BLOCK ABNORMAL ECG PREVIOUS TRACING : 05/17/2016 19.07 Compared to prior tracing no significant change DOCTOR: Twila Acuna Interpretating Date/Time 05/24/2016 22:28:49
== END 2016-05-23 16:37 | disposition home or self-care (01) ==
LOC: NEPC 13:03
DX: R31.9 Hematuria, unspecified (principal); S20.212A Contusion of left front wall of thorax, initial encounter; I10 Essential (primary) hypertension; J44.9 Chronic obstructive pulmonary disease, unspecified; K44.9 Diaphragmatic hernia without obstruction or gangrene; K57.30 Diverticulosis of large intestine without perforation or abscess without bleeding; N28.1 Cyst of kidney, acquired
CPT/HCPCS: 71010; 74176; 80053; 81001; 82550; 83735; 84484; 85025; 93005; 96360; 99284; J7040

== ENCOUNTER 2017-01-13 12:55 | Emergency (ER) | payer OTHER ==
[~2017-01-13] VITALS: Ht 182.9 cm; Wt 100.1 kg
[~2017-01-13 12:55] MED LIST changes: +CIPR250T52 PO; +KLOR10TA PO; -NORC5TAB PO; -POTA-243 PO
[2017-01-13 13:00] VITALS: BP 124/60; PULSE 68; RESP 18; TEMP 98.6; O2SAT 95
[2017-01-13] MEDS ORDERED: GABA300C5 PO (13:22)
[2017-01-13] MEDS ORDERED: MULT-207 PO (13:22)
[2017-01-13] MEDS ORDERED: FOLI400T PO (13:22)
[2017-01-13] MEDS ORDERED: AMLO10TA2 PO (13:22)
[2017-01-13] MEDS ORDERED: CALC1TAB12 PO (13:22)
[2017-01-13] MEDS ORDERED: SERT-129 PO (13:22)
[2017-01-13] MEDS ORDERED: LIDOCAINE HCL 1% 50 ML VIAL INFIL ONE (13:45)
[2017-01-13] MEDS ORDERED: TETANUS/DIPHTHERIA TOXOID ADULT 0.5 ML VIAL IM ONE (13:45)
--- NOTE | 2017-01-13 14:03 | PD ---
HPI . Right foot laceration Chief Complaint: Laceration/Skin Injury Time Seen by Provider: 13:17 Travel History International Travel<30 days: No Contact w/Intl Traveler<30days: No Traveled to known affect area: No History of Present Illness HPI 76-year-old male patient presents emergency part of her evaluation of her right foot laceration that he sustained this morning when riding a scooter. The patient states that he was riding the scooter too close to the sidewalk elevation in his foot was trapped between the concrete sidewalk elevation and the scooter. Patient states he did not fall when the injury occurred. Patient denies any other injury outside the right foot. Patient denies any blood thinners. Patient is not sure if he is up-to-date on his tetanus. There is a significant 9 cm crescent shaped laceration to the medial aspect of right foot proximal to the calcaneus. There is no ecchymosis or erythema noted to the area. PFSH Past Medical History Blood Disorders: No Anxiety: Yes Depression: No Cancer: Yes (LUNG CANCER chemo and radiation [id number]. remission. Port r chest ) Cardiovascular Problems: Yes (HTN) High Cholesterol: No Chemotherapy: Yes Chest Pain: No Congestive Heart Failure: No COPD: Yes Diabetes: No Diminished Hearing: No Endocrine: No Gastrointestinal Disorders: No Genitourinary: No Hepatitis: No Hiatal Hernia: No Hypertension: Yes Immune Disorder: No Implanted Vascular Access Dvce: Yes Medical other: Yes (neuropathy) Musculoskeletal: No Neurologic: No Psychiatric: Yes (ANXIETY) Reproductive: No Respiratory: Yes (COPD) Immunizations Current: Yes Radiation Therapy: Yes Sleep Apnea: No Thyroid Disease: No Tetanus Vaccination: Unknown Influenza Vaccination: Yes Past Surgical History Abdominal Surgery: Yes AICD: No Body Medical Devices: L PORT Cardiac Surgery: No Cholecystectomy: Yes Ear Surgery: No Endocrine Surgery: No Eye Surgery: No Genitourinary Surgery: No Gynecologic Surgery: No Joint Replacement: No Neurologic Surgery: No Oral Surgery: No Pacemaker: No Thoracic Surgery: No Other Surgery: Yes (GALLBLADDER REMOVAL, CAROTID CLEARED, LAMENECTOMY) Social History Alcohol Use: No Tobacco Use: No Substance Use: Yes (occassionally ) Allergies-Medications (Allergen,Severity, Reaction): Coded Allergies: No Known Allergies (Unverified , 01/13/17) Reported Meds & Prescriptions Reported Meds & Active Scripts Active Reported Calcium 500 +D (Calcium Carbonate-Cholecalciferol) 500-400 Mg-Unit Tab 1 Tab PO DAILY One Daily (Multiple Vitamin) 1 Tab 1 Tab PO DAILY Folic Acid 0.4 Mg Tab 600 Mcg PO DAILY Amlodipine (Amlodipine Besylate) 10 Mg Tab 10 Mg PO DAILY Sertraline (Sertraline HCl) 100 Mg Tab 100 Mg PO DAILY Gabapentin 300 Mg Cap 300 Mg PO BID Tizanidine (Tizanidine HCl) 4 Mg Tab 4 Mg PO TID PRN Advair Diskus Inh (Fluticasone-Salmeterol Inh) 250-50 Mcg/Blist Aer 1 Puff INH BID Rinse mouth after use. Klor-Con 10 (Potassium Chloride) 10 Meq Tab 10 Meq PO TID Lisinopril-Hctz 20-25 Mg Tab 1 Tab PO DAILY Atenolol 100 Mg Tab 100 Mg PO DAILY Pravastatin 20 Mg Tab 20 Mg PO DAILY Review of Systems Except as stated in HPI: all other systems reviewed are Neg Physical Exam Narrative GENERAL: Well-nourished, well-developed 76-year-old male patient in no acute distress. Nontoxic appearing. SKIN: 9 cm crescent-shaped laceration to the medial aspect of the right foot proximal to the calcaneus. HEAD: Normocephalic. Atraumatic. EYES: No scleral icterus. No injection or drainage. NECK: Supple, trachea midline. No JVD or lymphadenopathy. CARDIOVASCULAR: Regular rate and rhythm without murmurs, gallops, or rubs. RESPIRATORY: Breath sounds equal bilaterally. No accessory muscle use. GASTROINTESTINAL: Abdomen soft, non-tender, nondistended. MUSCULOSKELETAL: No deformities, cyanosis, or edema. BACK: Nontender without obvious deformity. No CVA tenderness. Data Data Last Documented VS Vital Signs Date Time Temp Pulse Resp B/P (MAP) Pulse Ox O2 Delivery O2 Flow Rate FiO2 01/13/17 13:00 98.6 68 18 124/60 (81) 95 Orders Orders Foot, Complete ([id number]) (01/13/17 13:40) Ice/Cold Pack (01/13/17 13:40) Tetanus/Diphtheria Tox Adult (Tetanus/Di (01/13/17 13:45) Lidocaine 1% Inj (50 Ml) (Xylocaine 1% I (01/13/17 13:45) MDM Medical Decision Making Medical Screen Exam Complete: Yes Emergency Medical Condition: Yes Differential Diagnosis Differential diagnoses include but not limited to laceration, cellulitis, foot contusion, foot fracture Narrative Course 76-year-old male patient presents emergency department for evaluation of a right foot laceration and injury. Patient is unsure of his up-to-date on his tetanus. Tetanus will be updated during this visit. X-ray of the right foot ordered and pending. Ice applied to the right foot. X-ray of the right foot shows no fracture or foreign body. Laceration repaired. Please see my procedural narrative. Patient will be discharged home with instructions to keep the wound clean and dry and remove the sutures in 10-14 days. Diagnosis Primary Impression: Laceration of foot Qualified Codes: S91.311A - Laceration without foreign body, right foot, initial encounter Patient Instructions: General Instructions, Laceration (ED) Additional Instructions: Please return to emergency department if your symptoms return or worsen. Follow up with your primary care provider. May take [id number] Motrin as needed for pain or swelling. May use ice as needed for pain or swelling Keep the wound clean and dry. Return in 10-14 days to get the sutures removed.. Disposition: 01 DISCHARGE HOME Condition: Stable Atiya Parsons Jan 13, 2017 14:03
--- NOTE | 2017-01-13 14:45 | RADRPT ---
EXAM DATE/TIME: 01/13/2017 14:09 [facility] COMPARISON: FOOT RIGHT COMPLETE ([id number]), March 15, 2015, 14:02. INDICATIONS : Fall. Right foot pain. Laceration. MEDICAL HISTORY : None. SURGICAL HISTORY : None. ENCOUNTER: Initial ACUITY: 1 day PAIN SCORE: 7/10 LOCATION: Right lateral FINDINGS: Three view examination of the right foot demonstrates no soft tissue swelling, dislocation, or fractu re. The tarsal bones appear intact. The interphalangeal and metatarsophalangeal joints are intact. The calcaneus is intact. Bony mineralization is normal. Inferior and posterior calcaneal spurs are present.8 CONCLUSION: 1. There is no evidence of acute fracture. No foreign body is identified. Tamir Connell MD on January 13, 2017 at 14:43 Board Certified Radiologist. This report was verified electronically.
== END 2017-01-13 16:12 | disposition home or self-care (01) ==
LOC: PHEFT 12:55
DX: S91.311A Laceration without foreign body, right foot, initial encounter (principal); V89.0XXA Person injured in unspecified motor-vehicle accident, nontraffic, initial encounter; W22.09XA Striking against other stationary object, initial encounter; Y92.480 Sidewalk as the place of occurrence of the external cause; Z23 Encounter for immunization
CPT/HCPCS: 12004; 73630; 90471; 90714

== ENCOUNTER 2017-03-20 09:30 | Emergency (ER) | payer OTHER ==
[~2017-03-20] VITALS: Ht 182.9 cm; Wt 61.0 kg
[~2017-03-20 09:30] MED LIST changes: +AMLO10TA2 PO; -AMLO2.5T PO; +CALC1TAB12 PO; -CIPR250T52 PO; +MULT-207 PO; +SERT-129 PO; -SERT-132 PO
[2017-03-20 09:39] VITALS: BP 121/59; PULSE 60; RESP 17; TEMP 97.8; O2SAT 94
[2017-03-20] MEDS ORDERED: SODIUM CHLORID 0.9% 500 ML INJ 500 ML IV ONE (10:00)
[2017-03-20] MEDS ORDERED: SODIUM CHLORIDE 0.9% FLUSH 10 ML FLUSH IVF PRN (10:00)
--- NOTE | 2017-03-20 10:08 | PD ---
HPI Chief Complaint: General Weakness Time Seen by Provider: 09:50 Travel History International Travel<30 days: No Contact w/Intl Traveler<30days: No Traveled to known affect area: No History of Present Illness HPI Patient is a 76-year-old male with history of small cell lung cancer in 2013, COPD, hypertension, presents to the emergency room with complaints of fall. Patient reports that he has been weak for years, he does ambulate with a walker. Patient reports that he has been feeling weaker over the past few months and has had increased falls. Patient reports that he was walking with his walker this morning and tried to make a turn but ended up falling backwards. Patient reports that he hit his head on the ground, reports no loss of consciousness, he was unable to get up from a standing position until EMS arrived at his home to help him up. Patient reports that his takes care of him and is his caregiver. Patient denies any headache or dizziness at this time, denies any neck pain, denies any chest pain or shortness of breath. Patient denies any abdominal pain, reports chronic low back pain which is unchanged in nature. Patient with no pain to his hips or extremities. Patient with no complaints other than generalized weakness which he has been dealing with for a while. PFSH Past Medical History Blood Disorders: No Anxiety: Yes Depression: No Cancer: Yes (LUNG CANCER chemo and radiation [id number]. remission. Port r chest ) Cardiovascular Problems: Yes (HBP) High Cholesterol: No Chemotherapy: Yes Chest Pain: No Congestive Heart Failure: No COPD: Yes Diabetes: No Diminished Hearing: No Endocrine: No Gastrointestinal Disorders: No Genitourinary: No Hepatitis: No Hiatal Hernia: No Hypertension: Yes Immune Disorder: No Implanted Vascular Access Dvce: Yes Musculoskeletal: No Neurologic: No Psychiatric: Yes (ANXIETY) Reproductive: No Respiratory: Yes (COPD) Immunizations Current: Yes Radiation Therapy: Yes Sleep Apnea: No Thyroid Disease: No Tetanus Vaccination: < 5 Years Influenza Vaccination: Yes Past Surgical History Abdominal Surgery: Yes AICD: No Body Medical Devices: L PORT Cardiac Surgery: No Cholecystectomy: Yes Ear Surgery: No Endocrine Surgery: No Eye Surgery: No Genitourinary Surgery: No Gynecologic Surgery: No Joint Replacement: No Neurologic Surgery: No Oral Surgery: No Pacemaker: No Thoracic Surgery: No Other Surgery: Yes (GALLBLADDER REMOVAL, CAROTID CLEARED, LAMENECTOMY) Social History Alcohol Use: No Tobacco Use: No (QUIT 10 YEARS AGO) Substance Use: No Allergies-Medications (Allergen,Severity, Reaction): Coded Allergies: No Known Allergies (Verified Adverse Reaction, Unknown, 03/20/17) Reported Meds & Prescriptions Reported Meds & Active Scripts Active Reported Calcium 500 +D (Calcium Carbonate-Cholecalciferol) 500-400 Mg-Unit Tab 1 Tab PO DAILY One Daily (Multiple Vitamin) 1 Tab 1 Tab PO DAILY Folic Acid 0.4 Mg Tab 600 Mcg PO DAILY Amlodipine (Amlodipine Besylate) 10 Mg Tab 10 Mg PO DAILY Sertraline (Sertraline HCl) 100 Mg Tab 100 Mg PO DAILY Gabapentin 300 Mg Cap 300 Mg PO BID Tizanidine (Tizanidine HCl) 4 Mg Tab 4 Mg PO TID PRN Advair Diskus Inh (Fluticasone-Salmeterol Inh) 250-50 Mcg/Blist Aer 1 Puff INH BID Rinse mouth after use. Klor-Con 10 (Potassium Chloride) 10 Meq Tab 10 Meq PO TID Lisinopril-Hctz 20-25 Mg Tab 1 Tab PO DAILY Atenolol 100 Mg Tab 100 Mg PO DAILY Pravastatin 20 Mg Tab 20 Mg PO DAILY Review of Systems General / Constitutional: No: Fever Eyes: No: Visual changes HENT: No: Headaches Cardiovascular: No: Chest Pain or Discomfort Respiratory: No: Shortness of Breath Gastrointestinal: No: Abdominal Pain Genitourinary: No: Dysuria Musculoskeletal: No: Pain Skin: No Rash Neurologic: Positive: Weakness (generalized weakness), No: Dizziness, Syncope Psychiatric: No: Depression Endocrine: No: Polydipsia Hematologic/Lymphatic: No: Easy Bruising Physical Exam Narrative GENERAL: mild distress SKIN: Focused skin assessment warm/dry. HEAD: Atraumatic. Normocephalic. EYES: Pupils equal and round. No scleral icterus. No injection or drainage. ENT: No nasal bleeding or discharge. Mucous membranes pink and moist. NECK: Trachea midline. No JVD. CARDIOVASCULAR: Regular rate and rhythm. No murmur appreciated. RESPIRATORY: No accessory muscle use. Clear to auscultation. Breath sounds equal bilaterally. GASTROINTESTINAL: Abdomen soft, non-tender, nondistended. Hepatic and splenic margins not palpable. MUSCULOSKELETAL: No obvious deformities. No clubbing. No cyanosis. No edema. NEUROLOGICAL: Awake and alert. No obvious cranial nerve deficits. Motor grossly within normal limits. Normal speech. PSYCHIATRIC: Appropriate mood and affect; insight and judgment normal. Data Data Last Documented VS Vital Signs Date Time Temp Pulse Resp B/P (MAP) Pulse Ox O2 Delivery O2 Flow Rate FiO2 03/20/17 11:12 58 14 122/88 (99) 95 Nasal Cannula 2.00 03/20/17 09:39 97.8 Orders Orders Chest, Single Ap (03/20/17 09:56) Ct Brain W/O Iv Contrast(Rout) (03/20/17 09:56) Complete Blood Count With Diff (03/20/17 09:56) Comprehensive Metabolic Panel (03/20/17 09:56) Magnesium (Mg) (03/20/17 09:56) Prothrombin Time / Inr (Pt) (03/20/17 09:56) Act Partial Throm Time (Ptt) (03/20/17 09:56) Ecg Monitoring (03/20/17 09:56) Iv Access Insert/Monitor (03/20/17 09:56) Oximetry (03/20/17 09:56) Sodium Chloride 0.9% Flush (Ns Flush) (03/20/17 10:00) Sodium Chlorid 0.9% 500 Ml Inj (Ns 500 M (03/20/17 10:00) Urinalysis - C+S If Indicated (03/20/17 09:56) ^ Straight Catheter (03/20/17 11:42) Labs Laboratory Tests Test 03/20/17 10:10 03/20/17 12:10 White Blood Count 6.6 TH/MM3 Red Blood Count 4.05 MIL/MM3 Hemoglobin 11.7 GM/DL Hematocrit 35.4 % Mean Corpuscular Volume 87.3 FL Mean Corpuscular Hemoglobin 29.0 PG Mean Corpuscular Hemoglobin Concent 33.2 % Red Cell Distribution Width 15.5 % Platelet Count 162 TH/MM3 Mean Platelet Volume 8.5 FL Neutrophils (%) (Auto) 67.0 % Lymphocytes (%) (Auto) 19.0 % Monocytes (%) (Auto) 9.8 % Eosinophils (%) (Auto) 3.5 % Basophils (%) (Auto) 0.7 % Neutrophils # (Auto) 4.4 TH/MM3 Lymphocytes # (Auto) 1.2 TH/MM3 Monocytes # (Auto) 0.6 TH/MM3 Eosinophils # (Auto) 0.2 TH/MM3 Basophils # (Auto) 0.0 TH/MM3 CBC Comment DIFF FINAL Differential Comment Prothrombin Time 10.7 SEC Prothromb Time International Ratio 1.1 RATIO Activated Partial Thromboplast Time 32.2 SEC Blood Urea Nitrogen 17 MG/DL Creatinine 0.97 MG/DL Random Glucose 98 MG/DL Total Protein 6.8 GM/DL Albumin 2.9 GM/DL Calcium Level 9.0 MG/DL Magnesium Level 2.1 MG/DL Alkaline Phosphatase 55 U/L Aspartate Amino Transf (AST/SGOT) 19 U/L Alanine Aminotransferase (ALT/SGPT) 18 U/L Total Bilirubin 0.3 MG/DL Sodium Level 142 MEQ/L Potassium Level 3.9 MEQ/L Chloride Level 103 MEQ/L Carbon Dioxide Level 29.1 MEQ/L Anion Gap 10 MEQ/L Estimat Glomerular Filtration Rate 75 ML/MIN Urine Color YELLOW Urine Turbidity CLEAR Urine pH 5.5 Urine Specific Hancock 1.020 Urine Protein NEG mg/dL Urine Glucose (UA) NEG mg/dL Urine Ketones NEG mg/dL Urine Occult Blood NEG Urine Nitrite NEG Urine Bilirubin NEG Urine Urobilinogen LESS THAN 2.0 MG/DL Urine Leukocyte Esterase NEG Urine RBC LESS THAN 1 /hpf Urine WBC LESS THAN 1 /hpf Urine Mucus FEW /lpf Microscopic Urinalysis Comment CULT NOT INDICATED MDM Medical Decision Making Medical Screen Exam Complete: Yes Emergency Medical Condition: Yes Medical Record Reviewed: Yes Interpretation(s) Vital Signs Date Time Temp Pulse Resp B/P (MAP) Pulse Ox O2 Delivery O2 Flow Rate FiO2 03/20/17 09:43 60 17 94 Room Air 03/20/17 09:39 97.8 60 17 121/59 (79) 94 Differential Diagnosis Electrolyte abnormality, ICH, uti Narrative Course 76 year old male with history of small cell lung cancer presents to ER with c/o of generalized weakness and frequent mechanical falls. Patient reports that he suffered a trip and fall this morning, reports no injuries, reports that he just feels weak at this time - reports overall generalized weakness with no focal complaints. During the course of the patients emergency department visit, the patients history, examination, and differential diagnosis were reviewed with the patient. The patient was placed on a cardiac catheterization technician with oximetry and frequent blood pressure monitoring. The patient had an IV access obtained and blood work sent for analysis. The patient was initially provided IVF. The patients laboratory studies were reviewed and remarkable for : CBC & BMP Diagram 03/20/17 10:10 Total Protein 6.8, Albumin 2.9 L, Calcium Level 9.0, Magnesium Level 2.1, Alkaline Phosphatase 55, Aspartate Amino Transf (AST/SGOT) 19, Alanine Aminotransferase (ALT/SGPT) 18, Total Bilirubin 0.3 Radiology studies were reviewed and remarkable for: Last Impressions Head CT 03/20/17 0956 Signed Impressions: Service Date/Time: Monday, March 20, 2017 10:27 - CONCLUSION: Normal examination. Kumar Faust MD Chest X-Ray 03/20/17 0956 Signed Impressions: Service Date/Time: Monday, March 20, 2017 10:21 - CONCLUSION: Minimal scarring left lung apex. Lung bases are clear. Kumar Faust MD Patient's at bedside, reports that patient has had more frequent falls over the past week, reports that patient has fallen 4 times this week. did call patient's PCP, requested the patient be admitted to the hospital for possible rehab vs prison care facility as is unable to care for patient anymore. Reports concerns for gait instability and overall decompensation of patient. Case reviewed with Sandrine with case management, patient does not meet inpatient or obs criteria as this is a chronic illness and decompensation of patient. FACE to FACE ordered for home PT/OT. home health has been arranged through case management Diagnosis Primary Impression: Gait instability Admitting Information Admitting Physician Requests: Observation Patient Instructions: General Instructions Additional Instructions: Please provide patient with a copy of their lab work and studies at discharge* * Please follow up with your primary care doctor in 2-3 days Return to the ER if symptoms worsen or progress Return to the ER as needed Home health evaluation was ordered for you Disposition: 01 DISCHARGE HOME Condition: Stable Face to Face Verification Diagnosis: (1) Weakness Physical Therapy Order: Evaluate and Treat, Improve ambulation, Strength and gait training Occupational Therapy Order: Evaluate and Treat, Improve ADL, Gross motor coordination, Fine motor coordination Home Health Nursing Order: Medical education Signs/symptoms of disease process Home Health Aide Order: To Assist In: Bathing and personal care, fermenter operator and meal prep Automation Technician Order: To Evaluate: Living conditions/environment, Support services Order: To Provide: Long range planning I have seen patient Kiet Yuan on 03/20/17. My clinical findings support the need for the requested home health care services because: Ltd mobility - disease progression Deconditioned w/ increased weakness Limited ability to care for self Need for psychosocial assistance High risk of falls I certify that my clinical findings support that this patient is homebound because: Impaired cognitive ability/safety Unsteady gait/balance Unsafe to leave home unassisted Yesenia Keith DO Mar 20, 2017 10:08
[2017-03-20 10:44] LABS: AUTOMATED NEUTROPHIL # 4.4 TH/MM3 (1.8-7.7); BASOPHIL % 0.7 % (0.0-2.0); EOSINOPHIL # 0.2 TH/MM3 (0-0.4); EOSINOPHIL % 3.5 % (0.0-4.0); HEMATOCRIT 35.4 % (39.0-51.0); HEMOGLOBIN 11.7 GM/DL (13.0-17.0); LYMPHOCYTE # 1.2 TH/MM3 (1.0-4.8); MEAN CELL VOLUME 87.3 FL (80.0-100.0); MEAN CORPUSCULAR HGB CONC 33.2 % (32.0-36.0); MEAN PLATELET VOLUME 8.5 FL (7.0-11.0); MONO % 9.8 % (0.0-8.0); MONOCYTE # 0.6 TH/MM3 (0-0.9); PLATELET COUNT 162 TH/MM3 (150-450); RED BLOOD COUNT 4.05 MIL/MM3 (4.50-5.90); RED CELL DISTRIBUTION WIDTH 15.5 % (11.6-17.2); WHITE BLOOD COUNT 6.6 TH/MM3 (4.0-11.0)
[2017-03-20 10:52] LABS: INTERNATIONAL NORMALIZED RATIO 1.1 RATIO; PROTHROMBIN TIME - PATIENT 10.7 SEC (9.8-11.6)
--- NOTE | 2017-03-20 10:53 | RADRPT ---
EXAM DATE/TIME: 03/20/2017 10:21 [facility] COMPARISON: CHEST SINGLE AP, May 23, 2016, 13:51. INDICATIONS : Trauma MEDICAL HISTORY : Chronic obstructive pulmonary disease. SURGICAL HISTORY : None. ENCOUNTER: Initial ACUITY: 1 day PAIN SCORE: 0/10 LOCATION: Bilateral chest FINDINGS: A single view of the chest demonstrates the lungs to be symmetrically aerated without evidence of mas s, infiltrate or effusion except for minimal scarring left upper lobe. There is a right IJ Infuse-a-P ort.. The cardiomediastinal contours are unremarkable. Osseous structures are intact. CONCLUSION: Minimal scarring left lung apex. Lung bases are clear. Kumar Faust MD on March 20, 2017 at 10:51 Board Certified Radiologist. This report was verified electronically.
--- NOTE | 2017-03-20 10:58 | RADRPT ---
EXAM DATE/TIME: 03/20/2017 10:27 [facility] COMPARISON: CT BRAIN W/O CONTRAST, May 17, 2016, 18:19. INDICATIONS : Trauma, fall. Multiple falls over the past month, bilateral leg weakness. RADIATION DOSE: 69.17 CTDIvol (mGy) MEDICAL HISTORY : Chronic obstructive pulmonary disease. Carcinoma, lung. Hypertension. SURGICAL HISTORY : Appendectomy. Cholecystectomy. ENCOUNTER: Initial ACUITY: 1 day PAIN SCALE: 4/10 LOCATION: cranial TECHNIQUE: Multiple contiguous axial images were obtained of the head. Using automated exposure control and adj ustment of the mA and/or kV according to patient size, radiation dose was kept as low as reasonably a chievable to obtain optimal diagnostic quality images. DICOM format image data is available electro nically for review and comparison. FINDINGS: CEREBRUM: The ventricles are normal for age. No evidence of midline shift, mass lesion, hemorrhage or acute in farction. No extra-axial fluid collections are seen. POSTERIOR FOSSA: The cerebellum and brainstem are intact. The 4th ventricle is midline. The cerebellopontine angle i s unremarkable. EXTRACRANIAL: The visualized portion of the orbits is intact. SKULL: The calvaria is intact. No evidence of skull fracture. CONCLUSION: Normal examination. Kumar Faust MD on March 20, 2017 at 10:55 Board Certified Radiologist. This report was verified electronically.
[2017-03-20 11:08] LABS: ALBUMIN 2.9 GM/DL (3.4-5.0); AST (GOT) 19 U/L (15-37); BICARBONATE 29.1 MEQ/L (21.0-32.0); BLOOD UREA NITROGEN 17 MG/DL (7-18); CHLORIDE 103 MEQ/L (98-107); CREATININE 0.97 MG/DL (0.60-1.30); GLOMERULAR FILTRATION RATE 75 ML/MIN (>89); GLUCOSE,RANDOM 98 MG/DL (74-106); MAGNESIUM 2.1 MG/DL (1.5-2.5); SODIUM (NA) 142 MEQ/L (136-145)
[2017-03-20 11:09] LABS: ALT (GPT) 18 U/L (12-78)
[2017-03-20 11:12] VITALS: BP 122/88; PULSE 58; RESP 14; O2SAT 95
[2017-03-20 11:12] LABS: ALKALINE PHOSPHATASE 55 U/L (45-117); TOTAL BILIRUBIN ADULT 0.3 MG/DL (0.2-1.0); TOTAL PROTEIN 6.8 GM/DL (6.4-8.2)
[2017-03-20 12:26] LABS: BILIRUBIN, URINE NEG (NEG); BLOOD, URINE NEG (NEG); GLUCOSE,URINE NEG (NEG); KETONE, URINE NEG (NEG); MUCUS URINE FEW /lpf (OCC); NITRITE,URINE NEG (NEG); PH, URINE 5.5 (5.0-8.5); URINE COLOR YELLOW (YELLW/STRAW); URINE LEUKOCYTE ESTERASE NEG (NEG)
[2017-03-20 13:10] VITALS: BP 120/84
== END 2017-03-20 13:33 | disposition home or self-care (01) ==
LOC: NEPD 09:30
DX: R53.1 Weakness (principal); R26.9 Unspecified abnormalities of gait and mobility; I10 Essential (primary) hypertension; J44.9 Chronic obstructive pulmonary disease, unspecified; Z79.899 Other long term (current) drug therapy; Z85.118 Personal history of other malignant neoplasm of bronchus and lung; Z87.891 Personal history of nicotine dependence
CPT/HCPCS: 70450; 71010; 80053; 81001; 83735; 85025; 85610; 85730; 96360; 99285; J7040

== ENCOUNTER 2017-04-23 10:33 | Inpatient (IN) | payer OTHER, MEDICARE ==
[2017-04-23] VITALS (14 sets, daily range): BP systolic 118–157; BP diastolic 61–98; PULSE 50–82; RESP 17–22; TEMP 97.8–102.3; O2SAT 95–100
[~2017-04-23] VITALS: Ht 182.9 cm; Wt 100.1 kg
[2017-04-23] MEDS ORDERED: VANCOMYCIN 1 GM/200 ML INJ 200 ML IV ONE ×2 (11:00→12:30)
[2017-04-23] MEDS ORDERED: ACETAMINOPHEN 650 MG SUPP RECTAL ONE (11:00)
[2017-04-23] MEDS ORDERED: CEFEPIME INJ 2,000 MG in SODIUM CHLORIDE 0.9% INJ 100 ML IV ONE (11:00)
[2017-04-23] MEDS ORDERED: SODIUM CHLOR 0.9% 1000 ML INJ 1,000 ML IV SCH ×2 (11:00)
[2017-04-23] MEDS ORDERED: VANCOMYCIN 1,000 MG/NS 250 ML IV ONE ×4 (11:15→14:30)
[2017-04-23 11:41] LABS: AUTOMATED NEUTROPHIL # 11.7 TH/MM3 (1.8-7.7); BASOPHIL % 0.3 % (0.0-2.0); EOSINOPHIL % 0.2 % (0.0-4.0); HEMATOCRIT 37.9 % (39.0-51.0); HEMOGLOBIN 12.2 GM/DL (13.0-17.0); LYMPH % 7.8 % (9.0-44.0); MEAN CELL VOLUME 85.1 FL (80.0-100.0); MEAN CORPUSCULAR HEMOGLOBIN 27.4 PG (27.0-34.0); MEAN CORPUSCULAR HGB CONC 32.1 % (32.0-36.0); MEAN PLATELET VOLUME 8.8 FL (7.0-11.0); MONOCYTE # 0.7 TH/MM3 (0-0.9); NEUT % 86.7 % (16.0-70.0); PLATELET COUNT 173 TH/MM3 (150-450); RED BLOOD COUNT 4.45 MIL/MM3 (4.50-5.90); RED CELL DISTRIBUTION WIDTH 15.4 % (11.6-17.2); WHITE BLOOD COUNT 13.5 TH/MM3 (4.0-11.0)
[2017-04-23 11:42] LABS: BILIRUBIN, URINE NEG (NEG); BLOOD, URINE NEG (NEG); GLUCOSE,URINE NEG (NEG); HYALINE CAST, URINE 4 /lpf (RARE); KETONE, URINE NEG (NEG); MUCUS URINE FEW /lpf (OCC); NITRITE,URINE NEG (NEG); PH, URINE 5.5 (5.0-8.5); URINE COLOR YELLOW (YELLW/STRAW); URINE LEUKOCYTE ESTERASE NEG (NEG)
--- NOTE | 2017-04-23 11:48 | RADRPT ---
EXAM DATE/TIME: 04/23/2017 11:15 [facility] COMPARISON: CHEST SINGLE AP, March 20, 2017, 10:21. INDICATIONS : Short of breath, fever, altered mental status, cough MEDICAL HISTORY : small cell carcinoma, in remission SURGICAL HISTORY : port for treatment ENCOUNTER: Initial ACUITY: 1 day PAIN SCORE: 0/10 LOCATION: Bilateral chest FINDINGS: A single portable frontal view of the chest shows a patchy area of parenchymal consolidation within t he left base. Right lung is clear. No effusions. Heart is normal in size. A degenerative thoracic spi ne. Power port overlies the right chest. CONCLUSION: Left lower lobe infiltrate. Maninder Bergman Jr., MD on April 23, 2017 at 11:45 Board Certified Radiologist. This report was verified electronically.
[2017-04-23 11:56] LABS: ALBUMIN 2.9 GM/DL (3.4-5.0); ALT (GPT) 24 U/L (12-78); AST (GOT) 24 U/L (15-37); BLOOD UREA NITROGEN 20 MG/DL (7-18); CALCIUM 8.6 MG/DL (8.5-10.1); CHLORIDE 104 MEQ/L (98-107); CREATININE 1.23 MG/DL (0.60-1.30); GLOMERULAR FILTRATION RATE 57 ML/MIN (>89); GLUCOSE,RANDOM 100 MG/DL (74-106); INTERNATIONAL NORMALIZED RATIO 1.1 RATIO; PROTHROMBIN TIME - PATIENT 11.1 SEC (9.8-11.6); SODIUM (NA) 140 MEQ/L (136-145)
[2017-04-23 11:59] LABS: ALKALINE PHOSPHATASE 60 U/L (45-117); TOTAL BILIRUBIN ADULT 0.4 MG/DL (0.2-1.0); TOTAL PROTEIN 7.2 GM/DL (6.4-8.2)
[2017-04-23] MEDS ORDERED: Vancomycin Consult Pharmacy 1 EA OTHER SCH (12:30)
[2017-04-23] MEDS ORDERED: MISCELLANEOUS NURSING INFORMATION XX SCH (12:30)
[2017-04-23] MEDS ORDERED: ACETAMINOPHEN 325 MG TAB PO PRN (12:30)
[2017-04-23] MEDS ORDERED: CHLORHEXIDINE GLUCONATE 2 % 1 PACK (2 CLOTHS) TOP PRN (12:30)
--- NOTE | 2017-04-23 12:55 | PD ---
HPI Chief Complaint: Altered Mental Status Time Seen by Provider: 10:41 Travel History International Travel<30 days: No Contact w/Intl Traveler<30days: No Traveled to known affect area: No History of Present Illness HPI This is a 76-year-old male who presents to the emergency department having just been discharged from his rehab facility last week who presents with altered mental status. Patient reportedly has been very weak ever since he has been home and his partner has been unable to assist him get out of bed. Patient's been spending every day in bed and this morning when his partner went to check on him he found him to be altered, confused, and eating his own feces. His partner reports that he is confused at baseline but this seems to be worse than normal. EMS noted that the patient had a fever. Patient was recently treated for lung cancer and is currently in remission. Patient is unable to provide any history and is quite confused. PFSH Past Medical History Blood Disorders: No Anxiety: Yes Depression: No Cancer: Yes (LUNG CANCER chemo and radiation [id number]. remission. Port r chest ) Cardiovascular Problems: Yes High Cholesterol: No Chemotherapy: Yes Chest Pain: No Congestive Heart Failure: No COPD: Yes Diabetes: No Diminished Hearing: No Endocrine: No Gastrointestinal Disorders: No Genitourinary: No Hepatitis: No Hiatal Hernia: No Hypertension: Yes Immune Disorder: No Implanted Vascular Access Dvce: Yes Musculoskeletal: No Neurologic: No Psychiatric: Yes (ANXIETY) Reproductive: No Respiratory: Yes (COPD) Immunizations Current: Yes Radiation Therapy: Yes Sleep Apnea: No Thyroid Disease: No Tetanus Vaccination: < 5 Years Influenza Vaccination: Yes Past Surgical History Abdominal Surgery: Yes AICD: No Body Medical Devices: L PORT Cardiac Surgery: No Cholecystectomy: Yes Ear Surgery: No Endocrine Surgery: No Eye Surgery: No Genitourinary Surgery: No Gynecologic Surgery: No Joint Replacement: No Neurologic Surgery: No Oral Surgery: No Pacemaker: No Thoracic Surgery: No Other Surgery: Yes (GALLBLADDER REMOVAL, CAROTID CLEARED, LAMENECTOMY) Social History Alcohol Use: No Tobacco Use: No (QUIT 10 YEARS AGO) Substance Use: No Allergies-Medications (Allergen,Severity, Reaction): Coded Allergies: No Known Allergies (Verified Allergy, Unknown, 04/23/17) Reported Meds & Prescriptions Reported Meds & Active Scripts Active Reported Calcium 500 +D (Calcium Carbonate-Cholecalciferol) 500-400 Mg-Unit Tab 1 Tab PO DAILY One Daily (Multiple Vitamin) 1 Tab 1 Tab PO DAILY Folic Acid 0.4 Mg Tab 600 Mcg PO DAILY Amlodipine (Amlodipine Besylate) 10 Mg Tab 10 Mg PO DAILY Sertraline (Sertraline HCl) 100 Mg Tab 100 Mg PO DAILY Gabapentin 300 Mg Cap 300 Mg PO BID Tizanidine (Tizanidine HCl) 4 Mg Tab 4 Mg PO TID PRN Advair Diskus Inh (Fluticasone-Salmeterol Inh) 250-50 Mcg/Blist Aer 1 Puff INH BID Rinse mouth after use. Klor-Con 10 (Potassium Chloride) 10 Meq Tab 10 Meq PO TID Lisinopril-Hctz 20-25 Mg Tab 1 Tab PO DAILY Atenolol 100 Mg Tab 100 Mg PO DAILY Pravastatin 20 Mg Tab 20 Mg PO DAILY Review of Systems ROS Limitations: Poor Historian Physical Exam Narrative GENERAL: Chronically ill-appearing. SKIN: 3 cm decubitus ulcer involving the left ankle with some purulent drainage and surrounding erythema stage I decubitus ulcer involving the sacral area. HEAD: Atraumatic. Normocephalic. EYES: Pupils equal and round. No injection or drainage. ENT: Dry mucous membranes. NECK: Trachea midline. CARDIOVASCULAR: Regular rate and rhythm. No murmur appreciated. RESPIRATORY: Rales in the left lower lung base. GASTROINTESTINAL: Abdomen soft, non-tender, nondistended. MUSCULOSKELETAL: No obvious deformities. NEUROLOGICAL: Awake and alert. No obvious cranial nerve deficits. Moving all extremities. PSYCHIATRIC: Poor insight and judgment. Data Data Last Documented VS Vital Signs Date Time Temp Pulse Resp B/P (MAP) Pulse Ox O2 Delivery O2 Flow Rate FiO2 04/23/17 11:44 97.9 73 21 134/63 (86) 99 Non-Rebreather 100 04/23/17 10:54 4.00 Orders Orders Sepsis Workup Initiated (04/23/17 ) Complete Blood Count With Diff (04/23/17 10:51) Comprehensive Metabolic Panel (04/23/17 10:51) Prothrombin Time / Inr (Pt) (04/23/17 10:51) Act Partial Throm Time (Ptt) (04/23/17 10:51) Lactic Acid Sepsis Protocol (04/23/17 10:51) Urinalysis - C+S If Indicated (04/23/17 10:51) Influenzae A/B Antigen (04/23/17 10:51) Blood Culture (04/23/17 10:51) Chest, Single Ap (04/23/17 10:51) Blood Glucose (04/23/17 10:51) Ecg Monitoring (04/23/17 10:51) Iv Access Insert/Monitor (04/23/17 10:51) Oximetry (04/23/17 10:51) Oxygen Administration (04/23/17 10:51) Acetaminophen Supp (Tylenol Supp) (04/23/17 11:00) Sodium Chlor 0.9% 1000 Ml Inj (Ns 1000 M (04/23/17 11:00) Sodium Chlor 0.9% 1000 Ml Inj (Ns 1000 M (04/23/17 11:00) Cefepime Inj (Maxipime Inj) (04/23/17 11:00) Vancomycin Inj (Vancomycin Inj) (04/23/17 11:15) Electrocardiogram (04/23/17 10:44) Arterial Blood Gas (Abg) (04/23/17 ) Admit Order (Ed Use Only) (04/23/17 12:25) Admit To Inpatient (04/23/17 ) Code Status (04/23/17 12:23) Vital Signs (Adult) KAT.Q1H (04/23/17 12:23) Activity Bed Rest (04/23/17 12:23) Pear Picker / Telemetry KAT.Q8H (04/23/17 12:23) Intake + Output KAT.Q8H (04/23/17 12:23) Diet Npo (04/23/17 Lunch) Sodium Chlor 0.9% 1000 Ml Inj (Ns 1000 M (04/23/17 12:23) Sodium Chloride 0.9% Flush (Ns Flush) (04/23/17 12:30) Sodium Chloride 0.9% Flush (Ns Flush) (04/23/17 21:00) Acetaminophen (Tylenol) (04/23/17 12:30) Albuterol-Ipratropium Neb (Duoneb Neb) (04/23/17 16:00) Albuterol-Ipratropium Neb (Duoneb Neb) (04/23/17 12:30) Chlorhexidine 0.12% Liq (Peridex 0.12% L (04/23/17 20:00) Famotidine Inj (Pepcid Inj) (04/23/17 21:00) Complete Blood Count With Diff (04/24/17 06:00) Comprehensive Metabolic Panel (04/24/17 06:00) Sputum Culture And Gram Stain (04/23/17 12:23) Consult Cm-Day 5 Ltac Eval (04/23/17 ) Enoxaparin Inj (Lovenox Inj) (04/23/17 14:00) Scd Bilateral/Knee High KAT.BID (04/23/17 12:23) Peter Bilateral/Knee High KAT.QSHIFT (04/23/17 13:00) ^ Initiate Protocol (04/23/17 12:23) Instruction (04/23/17 12:23) Misc Nursing Information (04/23/17 12:30) Chlorhexidine 2% Cloth (Chlorhexidine 2% (04/24/17 04:00) Chlorhexidine 2% Cloth (Chlorhexidine 2% (04/23/17 12:30) Mrsa Pcr Surveillance (04/23/17 12:23) Inpatient Certification (04/23/17 ) Labs Laboratory Tests Test 04/23/17 10:50 04/23/17 10:57 04/23/17 12:20 Lactic Acid Level 0.9 mmol/L White Blood Count 13.5 TH/MM3 Red Blood Count 4.45 MIL/MM3 Hemoglobin 12.2 GM/DL Hematocrit 37.9 % Mean Corpuscular Volume 85.1 FL Mean Corpuscular Hemoglobin 27.4 PG Mean Corpuscular Hemoglobin Concent 32.1 % Red Cell Distribution Width 15.4 % Platelet Count 173 TH/MM3 Mean Platelet Volume 8.8 FL Neutrophils (%) (Auto) 86.7 % Lymphocytes (%) (Auto) 7.8 % Monocytes (%) (Auto) 5.0 % Eosinophils (%) (Auto) 0.2 % Basophils (%) (Auto) 0.3 % Neutrophils # (Auto) 11.7 TH/MM3 Lymphocytes # (Auto) 1.0 TH/MM3 Monocytes # (Auto) 0.7 TH/MM3 Eosinophils # (Auto) 0.0 TH/MM3 Basophils # (Auto) 0.0 TH/MM3 CBC Comment DIFF FINAL Differential Comment Prothrombin Time 11.1 SEC Prothromb Time International Ratio 1.1 RATIO Activated Partial Thromboplast Time 36.4 SEC Urine Color YELLOW Urine Turbidity CLEAR Urine pH 5.5 Urine Specific [place] 1.019 Urine Protein TRACE mg/dL Urine Glucose (UA) NEG mg/dL Urine Ketones NEG mg/dL Urine Occult Blood NEG Urine Nitrite NEG Urine Bilirubin NEG Urine Urobilinogen LESS THAN 2.0 MG/DL Urine Leukocyte Esterase NEG Urine RBC LESS THAN 1 /hpf Urine WBC 1 /hpf Urine Hyaline Casts 4 /lpf Urine Mucus FEW /lpf Microscopic Urinalysis Comment CATH-CULT NOT IND Blood Urea Nitrogen 20 MG/DL Creatinine 1.23 MG/DL Random Glucose 100 MG/DL Total Protein 7.2 GM/DL Albumin 2.9 GM/DL Calcium Level 8.6 MG/DL Alkaline Phosphatase 60 U/L Aspartate Amino Transf (AST/SGOT) 24 U/L Alanine Aminotransferase (ALT/SGPT) 24 U/L Total Bilirubin 0.4 MG/DL Sodium Level 140 MEQ/L Potassium Level 3.5 MEQ/L Chloride Level 104 MEQ/L Carbon Dioxide Level 30.0 MEQ/L Anion Gap 6 MEQ/L Estimat Glomerular Filtration Rate 57 ML/MIN Blood Gas Puncture Site RT RADIAL Blood Gas Patient Temperature 98.6 Blood Gas HCO3 24 mmol/L Blood Gas Base Excess -1.2 mmol/L Blood Gas Oxygen Saturation 97 % Arterial Blood pH 7.34 Arterial Blood Partial Pressure CO2 45 mmHg Arterial Blood Partial Pressure O2 133 mmHG Arterial Blood Oxygen Content 15.0 Vol % Arterial Blood Carboxyhemoglobin 1.2 % Arterial Blood Methemoglobin 0.6 % Blood Gas Hemoglobin 10.8 G/DL Oxygen Delivery Device Non-Rebreathing Mask Blood Gas Liter Flow 15 L/M [facility] Medical Decision Making Medical Screen Exam Complete: Yes Emergency Medical Condition: Yes Interpretation(s) Temperature is 102.3 Leukocytosis 86% neutrophils Electrolytes are reassuring Lactic acid is 0.9 ABG demonstrates mild respiratory acidosis Lactic acid is 0.9 Urinalysis demonstrates no urinary tract infection X-ray demonstrates left lower lobe pneumonia Differential Diagnosis Pneumonia, urinary tract infection, sepsis, dehydration, meningitis Narrative Course This is a 76-year-old male who presents to the emergency department with some confusion. He is ill-appearing and evidently confused at baseline per his partner. He was placed on a monitor and an IV was established. He is febrile. Labs were obtained which are reassuring. Chest x-ray demonstrates a left lower lobe pneumonia. Patient requires full oxygen support with a nonrebreather. He was cultured and given broad-spectrum antibiotic therapy. IV hydration was given. Patient has tenuous respiratory status with a large oxygen requirement. He will be admitted to the intent of care unit for close monitoring. Critical Care Narrative Aggregate critical care time was 50 minutes. Time to perform other separately billable procedures was not included in the critical care time. My time did not include minutes spent treating any other patients simultaneously or on activities that did not directly contribute to the patient's treatment. The services I provided to this patient were to treat and/or prevent clinically significant deterioration that could result in: Disability, I provided critical care services requiring my management, as noted below: Chart data review, documentation time, medication orders and management, vital sign assessments/reviewing monitor data, ordering and reviewing lab tests, ordering and interpreting/reviewing x-rays and diagnostic studies, care of the patient and discussion of the patient with the admitting physicians. Physician Communication Physician Communication Discussed with Dr. Higginbotham Diagnosis Primary Impression: Pneumonia Qualified Codes: J18.1 - Lobar pneumonia, unspecified organism Admitting Information Admitting Physician Requests: it Myra James MD Apr 23, 2017 12:55
--- NOTE | 2017-04-23 13:11 | HHI.HP ---
[facility] Service Critical Care Medicine Primary Care Physician Raheem Cheung MD Admission Diagnosis pneumonia Diagnosis: (1) Healthcare-associated pneumonia Diagnosis: Principal (2) Sepsis Diagnosis: Principal (3) Acute hypoxemic respiratory failure Diagnosis: Principal (4) COPD exacerbation Diagnosis: Principal (5) Weakness Diagnosis: Principal (6) Small cell carcinoma of lung Diagnosis: Secondary (7) HTN (hypertension) Diagnosis: Secondary Chief Complaint: Hypoxia, pneumonia, weakness Travel History International Travel<30 Days: No Contact w/Intl Traveler <30 Da: No Traveled to Known Affected Are: No Sepsis Criteria SIRS Criteria (2 or more): Temp > 100.9 or < 96.8, WBC > 24521, < 4000 or > 10 % bands Sepsis Criteria (SIRS+source): Infect source susp/known Criteria Outcome: Meets sepsis criteria History of Present Illness Patient is a76 year old male with past medical history significant for small cell lung cancer diagnosed in 2013 status post chemoradiation and prophylactic radiation to the brain, COPD, hypertension, anxiety, cognitive impairment who is about 2 weeks ago placed in [facility] due to weakness. Patient was discharged home last Sunday became increasingly weak with altered mentation. Due to fever and worsening mental status EMS was called and brought the patient to the emergency department here at [place]. In the ED patient was hypoxemic and was placed on a nonrebreather. Temperature is 102.3, 13.5 WBC with 86% neutrophils. X-ray demonstrates left lower lobe pneumonia. Because of sepsis and hypoxia after ICU admission requested. Flu test negative. Received wound care and cefepime in the ED I evaluated the patient in the ED. He appears critically ill, and very weak. Chest exam revealed coarse breath sounds and crackles. I have started vancomycin and Zosyn. Also azithromycin for atypical coverage. IV Solu-Medrol and scheduled and when necessary breathing treatments for probable COPD exacerbation. CT of the head and chest requested Review of Systems ROS Limitations: Altered Mental Status Past Family Social History Allergies: Coded Allergies: No Known Allergies (Verified Allergy, Unknown, 04/23/17) Past Medical History Small cell Lung CA diagnosed in 2013. He received chemotherapy and radiation treatments, prophylactic radiation treatments to the brain. COPD HTN Anxiety Past Surgical History Port Placement Cholecystectomy Reported Medications Calcium 500 +D (Calcium Carbonate-Cholecalciferol) 500-400 Mg-Unit Tab 1 Tab PO DAILY One Daily (Multiple Vitamin) 1 Tab 1 Tab PO DAILY Folic Acid 0.4 Mg Tab 600 Mcg PO DAILY Amlodipine (Amlodipine Besylate) 10 Mg Tab 10 Mg PO DAILY Sertraline (Sertraline HCl) 100 Mg Tab 100 Mg PO DAILY Gabapentin 300 Mg Cap 300 Mg PO BID Tizanidine (Tizanidine HCl) 4 Mg Tab 4 Mg PO TID PRN Advair Diskus Inh (Fluticasone-Salmeterol Inh) 250-50 Mcg/Blist Aer 1 Puff INH BID Klor-Con 10 (Potassium Chloride) 10 Meq Tab 10 Meq PO TID Lisinopril-Hctz 20-25 Mg Tab 1 Tab PO DAILY Atenolol 100 Mg Tab 100 Mg PO DAILY Pravastatin 20 Mg Tab 20 Mg PO DAILY Active Ordered Medications Reviewed Family History Unable to obtain due to clinical condition Social History Quit smoking 10 years ago Physical Exam Vital Signs Vital Signs Date Time Temp Pulse Resp B/P (MAP) Pulse Ox O2 Delivery O2 Flow Rate FiO2 04/23/17 11:44 97.9 73 21 134/63 (86) 99 Non-Rebreather 100 04/23/17 10:54 22 95 Nasal Cannula 4.00 04/23/17 10:54 95 Nasal Cannula 4.00 04/23/17 10:42 72 22 99 Non-Rebreather 12.00 100 04/23/17 10:41 102.3 82 22 147/67 (93) 99 Physical Exam GENERAL: Chronically ill-appearing, lying on ED bed SKIN: 3 cm pressure ulcer left ankle with some purulent drainage, mild erythema. Stage I decubitus ulcer sacral area. HEAD: Atraumatic. Normocephalic. EYES: Pupils equal and round. No injection or drainage. ENT: Dry mucous membranes. NECK: Trachea midline. CARDIOVASCULAR: Regular rate and rhythm. No murmur appreciated. RESPIRATORY: Rales in the left lower lung base. GASTROINTESTINAL: Abdomen soft, non-tender, nondistended. MUSCULOSKELETAL: No obvious deformities. NEUROLOGICAL: Awake and alert. No obvious cranial nerve deficits. Moving all extremities. PSYCHIATRIC: Poor insight and judgment. Laboratory Laboratory Tests Test 04/23/17 10:50 04/23/17 10:57 04/23/17 12:20 Lactic Acid Level 0.9 White Blood Count 13.5 Red Blood Count 4.45 Hemoglobin 12.2 Hematocrit 37.9 Mean Corpuscular Volume 85.1 Mean Corpuscular Hemoglobin 27.4 Mean Corpuscular Hemoglobin Concent 32.1 Red Cell Distribution Width 15.4 Platelet Count 173 Mean Platelet Volume 8.8 Neutrophils (%) (Auto) 86.7 Lymphocytes (%) (Auto) 7.8 Monocytes (%) (Auto) 5.0 Eosinophils (%) (Auto) 0.2 Basophils (%) (Auto) 0.3 Neutrophils # (Auto) 11.7 Lymphocytes # (Auto) 1.0 Monocytes # (Auto) 0.7 Eosinophils # (Auto) 0.0 Basophils # (Auto) 0.0 CBC Comment DIFF FINAL Differential Comment Prothrombin Time 11.1 Prothromb Time International Ratio 1.1 Activated Partial Thromboplast Time 36.4 Urine Color YELLOW Urine Turbidity CLEAR Urine pH 5.5 Urine Specific [place] 1.019 Urine Protein TRACE Urine Glucose (UA) NEG Urine Ketones NEG Urine Occult Blood NEG Urine Nitrite NEG Urine Bilirubin NEG Urine Urobilinogen LESS THAN 2.0 Urine Leukocyte Esterase NEG Urine RBC LESS THAN 1 Urine WBC 1 Urine Hyaline Casts 4 Urine Mucus FEW Microscopic Urinalysis Comment CATH-CULT NOT IND Blood Urea Nitrogen 20 Creatinine 1.23 Random Glucose 100 Total Protein 7.2 Albumin 2.9 Calcium Level 8.6 Alkaline Phosphatase 60 Aspartate Amino Transf (AST/SGOT) 24 Alanine Aminotransferase (ALT/SGPT) 24 Total Bilirubin 0.4 Sodium Level 140 Potassium Level 3.5 Chloride Level 104 Carbon Dioxide Level 30.0 Anion Gap 6 Estimat Glomerular Filtration Rate 57 Blood Gas Puncture Site RT RADIAL Blood Gas Patient Temperature 98.6 Blood Gas HCO3 24 Blood Gas Base Excess -1.2 Blood Gas Oxygen Saturation 97 Arterial Blood pH 7.34 Arterial Blood Partial Pressure CO2 45 Arterial Blood Partial Pressure O2 133 Arterial Blood Oxygen Content 15.0 Arterial Blood Carboxyhemoglobin 1.2 Arterial Blood Methemoglobin 0.6 Blood Gas Hemoglobin 10.8 Oxygen Delivery Device Non-Rebreathing Mask Blood Gas Liter Flow 15 Date/Time Source Procedure Growth Status 04/23/17 10:57 Blood Peripheral Aerobic Blood Culture Pending Received 04/23/17 10:57 Blood Peripheral Anaerobic Blood Culture Pending Received 04/23/17 10:57 Nasal Washing Influenza Types A,B Antigen (KYARA) - Final NEGATIVE FOR FLU A AND B ANTIGEN.... Complete Result Diagram: 04/23/17 1057 04/23/17 1057 Imaging Chest x-ray with left lower lobe pneumonia Septic Shock Reassessment Septic shock perfusion: reassessment completed Caprini VTE Risk Assessment Caprini VTE Risk Assessment: Mod/High Risk (score >= 2) Caprini Risk Assessment Model Point Value = 1 Point Value = 2 Point Value = 3 Point Value = 5 Age 41-60 Minor surgery BMI > 25 kg/m2 Swollen legs Varicose veins or History of unexplained or recurrent spontaneous Oral contraceptives or hormone replacement Sepsis (< 1 month) Serious lung disease, including pneumonia (< 1 month) Abnormal pulmonary function Acute myocardial infarction Congestive heart failure (< 1 month) History of inflammatory bowel disease Medical patient at bed rest Age 61-74 Arthroscopic surgery Major open surgery (> 45 min) Laparoscopic surgery (> 45 min) Malignancy Confined to bed (> 72 hours) Immobilizing plaster cast Central venous access Age >= 75 History of VTE Family history of VTE Factor V Leiden Prothrombin [id number] Lupus anticoagulant Anticardiolipin antibodies Elevated serum homocysteine Heparin-induced thrombocytopenia Other congenital or acquired thrombophilia Stroke (< 1 month) Elective arthroplasty Hip, pelvis, or leg fracture Acute spinal cord injury (< 1 month) Prophylaxis Regimen Total Risk Factor Score Risk Level Prophylaxis Regimen 0-1 Low Early ambulation 2 Moderate Order ONE of the following: *Sequential Compression Device (SCD) *Heparin 5000 units SQ BID 3-4 Higher Order ONE of the following medications: *Heparin 5000 units SQ TID *Enoxaparin/Lovenox 40 mg SQ daily (WT < 150 kg, CrCl > 30 mL/min) *Enoxaparin/Lovenox 30 mg SQ daily (WT < 150 kg, CrCl > 10-29 mL/min) *Enoxaparin/Lovenox 30 mg SQ BID (WT < 150 kg, CrCl > 30 mL/min) AND/OR *Sequential Compression Device (SCD) 5 or more Highest Order ONE of the following medications: *Heparin 5000 units SQ TID (Preferred with Epidurals) *Enoxaparin/Lovenox 40 mg SQ daily (WT < 150 kg, CrCl > 30 mL/min) *Enoxaparin/Lovenox 30 mg SQ daily (WT < 150 kg, CrCl > 10-29 mL/min) *Enoxaparin/Lovenox 30 mg SQ BID (WT < 150 kg, CrCl > 30 mL/min) AND *Sequential Compression Device (SCD) Assessment and Plan Assessment and Plan NEURO: Metabolic encephalopathy Underlying cognitive impairment - Acute worsening of his mentation seems to be secondary to pneumonia and sepsis - CT of the head to rule out metastatic disease RESP: Acute hypoxemic respiratory failure Left lower lobe pneumonia COPD exacerbation History of small cell lung cancer - Oxygen by nonrebreather to keep sat above 90% - DuoNeb every 6 hours and when necessary - IV Solu-Medrol 60 mg every 12 hours - Continue Advair - Continue vancomycin Zosyn and azithromycin - CT of the chest ordered CV: History of hypertension - Normal saline IV fluids 2L bolus and 75 ml per hour - Lactic acid normal - Continue atenolol hold other antihypertensive due to sepsis GI: - Nothing by mouth until respiratory status improves : - Monitor renal function closely. Strict intake output ID: Sepsis Healthcare associated pneumonia in left lower lobe - Broad-spectrum antibiotics with IV vancomycin and Zosyn and azithromycin - F/u blood and sputum cx. Negative for influenza HEME: Non-small cell lung cancer - Monitor CBC, CMP - Dr. Dugan consulted ENDO: - Electrolyte replacement per protocol PROPH: - Bilateral lower extremity SCDs. Lovenox 40 mg sq qq. IV Famotidine LINES: - Utilize peripheral IVs, central line if needed CC time 45 min Code Status Full Discussed Condition With Dr. Weiss Problem Qualifiers (1) Sepsis: Qualified Codes: A41.9 - Sepsis, unspecified organism Josué Higginbotham MD Apr 23, 2017 13:10
[2017-04-23] MEDS: SODIUM CHLOR 0.9% 1000 ML INJ 1,000 ML IV SCH (14:02)
[2017-04-23] MEDS: AZITHROMYCIN INJ 500 MG in SODIUM CHLOR 0.9% 250 ML INJ 250 ML IV SCH (14:05)
[2017-04-23] MEDS: PIPERACIL-TAZO 4.5 GM PREMIX 100 ML IV SCH ×2 (14:05→22:40)
[2017-04-23] MEDS: methylPREDNISolone SOD SUCC 125 MG/2 ML VIAL IV PUSH SCH (14:05)
[2017-04-23] MEDS: ENOXAPARIN SODIUM 40 MG/0.4 ML SYRINGE SQ SCH (14:06)
--- NOTE | 2017-04-23 14:13 | RADRPT ---
EXAM DATE/TIME: 04/23/2017 13:39 [place] COMPARISON: CT BRAIN W/O CONTRAST, March 20, 2017, 10:27. INDICATIONS : Altered mental status RADIATION DOSE: 69.15 CTDIvol (mGy) MEDICAL HISTORY : Hypertension. Chronic obstructive pulmonary disease. Carcinoma, lung. SURGICAL HISTORY : Cholecystectomy. ENCOUNTER: Initial ACUITY: 1 day PAIN SCALE: 0/10 LOCATION: cranial TECHNIQUE: Multiple contiguous axial images were obtained of the head. Using automated exposure control and adj ustment of the mA and/or kV according to patient size, radiation dose was kept as low as reasonably a chievable to obtain optimal diagnostic quality images. DICOM format image data is available electro nically for review and comparison. FINDINGS: CEREBRUM: Extensive periventricular low attenuation change involving both cerebral hemispheres The ventricles a re normal for age. No evidence of midline shift, mass lesion, hemorrhage or acute infarction. No ex tra-axial fluid collections are seen. POSTERIOR FOSSA: The cerebellum and brainstem are intact. The 4th ventricle is midline. The cerebellopontine angle i s unremarkable. EXTRACRANIAL: The visualized portion of the orbits is intact. SKULL: The calvaria is intact. No evidence of skull fracture. CONCLUSION: 1. No acute intracranial abnormality. 2. Extensive chronic small vessel ischemic change. Maninder Bergman Jr., MD on April 23, 2017 at 14:07 Board Certified Radiologist. This report was verified electronically.
--- NOTE | 2017-04-23 14:37 | RADRPT ---
EXAM DATE/TIME: 04/23/2017 13:43 [place] COMPARISON: CHEST SINGLE AP, April 23, 2017, 11:15. INDICATIONS : Abnormal chest x-ray, pneumonia. RADIATION DOSE: 13.05 CTDIvol (mGy) MEDICAL HISTORY : Hypertension. Chronic obstructive pulmonary disease. Carcinoma, lung. SURGICAL HISTORY : Cholecystectomy. ENCOUNTER: Initial ACUITY: 1 day PAIN SCALE: 0/10 LOCATION: chest TECHNIQUE: Volumetric scanning of the chest was performed. Using automated exposure control and adjustment of t he mA and/or kV according to patient size, radiation dose was kept as low as reasonably achievable to obtain optimal diagnostic quality images. DICOM format image data is available electronically for r eview and comparison. Follow-up recommendations for detected pulmonary nodules are based at a minimum on nodule size and pa tient risk factors according to Fleischner Society Guidelines. FINDINGS: LUNGS: An intraalveolar infiltrate is seen involving the posterior basilar segment of the left lower lobe. Air bronchograms are noted. This correlates to the finding seen on the chest x-ray. Small sub-1 cm no dular densities are seen involving the lateral aspects the left hilum. These are associated with mild linear areas of increased density as well. A groundglass infiltrate is seen within the posterior seg ment of the left upper lobe. The right lung is relatively clear with the exception of minimal depende nt atelectasis. PLEURAE: There is no pleural thickening or pleural effusion. MEDIASTINUM: The heart is normal in size. No pericardial effusion. Significant coronary artery and aortic atherosc lerotic calcifications. No adenopathy. Pulmonary arteries and aorta are normal in caliber. AXILLAE: Within normal limits. No lymphadenopathy. MUSCULOSKELETAL: A degenerative lumbar spine. A Port-A-Cath overlies the right chest. MISCELLANEOUS: The visualized upper abdominal organs demonstrate no acute abnormality. CONCLUSION: 1. Left lower lobe infiltrate with small areas of infiltrate involving the left perihilar distributio n of the lingula as well as the left upper lobe. Infectious etiology is suspected. 2. Significant coronary artery atherosclerotic calcifications. Maninder Bergman Jr., MD on April 23, 2017 at 14:31 Board Certified Radiologist. This report was verified electronically.
--- NOTE | 2017-04-23 15:46 | PD.WCN.NOT ---
Wound Consult Description: Received consult from Doctor Higginbotham for wound management of sacrum, and L ankle. Communicated with: HANNAH Guerra and Doctor Josué Higginbotham Recommendation: 1.Please cleanse buttock, sacral and coccyx areas gently with soap and water, rinse and pat dry. Apply Calazime barrier cream BID and PRN and leave open to air. 2. Please turn patient every 2 hours and PRN for comfort and to offload pressure from coccyx area 3. Please cleanse L lateral ankle with wound cleanser or normal saline and pat dry. Apply Optifoam AG dressing over wound and secure with rolled gauze and tape. Change dressing every 2 days or PRN if saturated or dislodged 4. Please cleanse abrasions to L hip and L lateral buttock with normal saline or wound cleanser and pat dry. Apply Xeroform in a single layer just over wound beds and cover with bordered gauze. Change dressing daily. Please apply skin prep to skin before apply adhesive dressing. 5. Offload pressure from L lateral malleolus area with pillow. Additional Information: Patient seen on 5th floor [facility] for evaluation of L ankle and sacral wounds. Patient first assessed in E pod. Patient is laying on a stretcher during wound assessment. Removed dressing to L lateral ankle to reveal stage 4 pressure related injury. Wound bed presents with ~20% white tissue, ~20% pink tissue and ~60% red non granulation tissue. Periwound presents with blanchable erythema and heat. Wound margins are well defined and wound has round shape. Wound measures 2cm x 2cm x ~0.2cm. Wound drainage is minimal and sero-sanguinous without odor.Wound cleansed with normal saline and patted dry.Wound culture obtained.Applied oil emulsion gauze just over open wound bed and covered with dry 4x4 gauze pads, secured with ABD pad, rolled gauze and tape. Dated and initialed dressing.R medial ankle was open to air and presents with scab. Per patient's wound was a laceration from accident at home. Patient was then transferred to [facility] for admission. Patient was transferred to [place] bed. Patient was then turned to R side for wound assessment of sacral area. Gauze that was placed by RN in E pod was removed by HANNAH Guerra HHSHANNON, before wound assessment. Wound to coccyx presents with 100% pink tissue and is partial thickness Wound measures 0.7cm x0.4cm x ~0.1cm. Cleansed wound with normals saline. Periwound presents with macerated scar tissue at 6 o'clock. Wound margins are well defined with maceration noted circumferentially. Bilateral buttocks also present with denuded erythematous skin. Applied Calazime barrier cream to biltateral buttock , sacral and coccyx areas and left all open to air.Abrasions to L hip and L lateral buttock as shallow, with 100% pink tissue and measures ~1cm x ~1cm x ~<0.1cm.Cleansed abrasions with normal saline and covered with Xeroform in a single layer just over wound beds and covered with bordered gauze. Gabbie Dupont [facility] Apr 23, 2017 15:46
[2017-04-23] MEDS: RESP: ALBUTEROL 2.5 MG/IPRATROPIUM 0.5 MG NEB (SCH) NEB ×2 (16:05→20:14)
[2017-04-23] MEDS ORDERED: SODIUM CHLOR 0.9% 1000 ML INJ 1,000 ML IV ONE (17:30)
[2017-04-23] MEDS: CHLORHEXIDINE 0.12% (ORAL KIT) 15 ML CUP MT SCH (20:00)
--- NOTE | 2017-04-23 20:12 | EKG ---
Date Performed: 04/23/2017 Time Performed: 10:44:31 PTAGE: 76 years EKG: Sinus rhythm NONSPECIFIC T-WAVE ABNORMALITY Baseline artifact Compared to previous tracing, the patient is no maurisio martina bradycardic ABNORMAL ECG PREVIOUS TRACING : 05/23/2016 14.12 DOCTOR: Stacey Olivo Interpretating Date/Time 04/23/2017 20:11:08
[2017-04-23] MEDS: BUDESONIDE-FORMOTEROL 160/4.5 MCG INHALER INH SCH (21:00)
[2017-04-23] MEDS: SODIUM CHLORIDE 0.9% FLUSH 10 ML FLUSH IV FLUSH SCH (22:40)
[2017-04-23] MEDS: FAMOTIDINE 20 MG/2 ML VIAL IV PUSH SCH (22:40)
[2017-04-24] VITALS (14 sets, daily range): BP systolic 139–178; BP diastolic 64–97; PULSE 51–94; RESP 16–24; TEMP 97.3–98.8; O2SAT 94–100
[2017-04-24] MEDS: RESP: ALBUTEROL 2.5 MG/IPRATROPIUM 0.5 MG NEB (SCH) NEB ×4 (03:45→21:04)
[2017-04-24] MEDS: CHLORHEXIDINE GLUCONATE 2 % 1 PACK (2 CLOTHS) TOP SCH (04:00)
[2017-04-24] MEDS: methylPREDNISolone SOD SUCC 125 MG/2 ML VIAL IV PUSH SCH ×2 (04:31→14:03)
[2017-04-24] MEDS: SODIUM CHLOR 0.9% 1000 ML INJ 1,000 ML IV SCH ×2 (04:31→14:05)
[2017-04-24] MEDS: PIPERACIL-TAZO 4.5 GM PREMIX 100 ML IV SCH ×4 (04:32→20:36)
[2017-04-24] MEDS: VANCOMYCIN INJ 2,000 MG in SODIUM CHLORID 0.9% 500 ML INJ 500 ML IV SCH ×2 (04:38→23:29)
[2017-04-24 06:23] LABS: ALBUMIN 2.5 GM/DL (3.4-5.0); ALKALINE PHOSPHATASE 54 U/L (45-117); ALT (GPT) 22 U/L (12-78); AST (GOT) 23 U/L (15-37); BICARBONATE 26.9 MEQ/L (21.0-32.0); CALCIUM 8.2 MG/DL (8.5-10.1); CHLORIDE 108 MEQ/L (98-107); CREATININE 0.83 MG/DL (0.60-1.30); GLOMERULAR FILTRATION RATE 90 ML/MIN (>89); GLUCOSE,RANDOM 124 MG/DL (74-106); SODIUM (NA) 143 MEQ/L (136-145); TOTAL BILIRUBIN ADULT 0.3 MG/DL (0.2-1.0); TOTAL PROTEIN 6.7 GM/DL (6.4-8.2)
[2017-04-24 06:29] LABS: BLOOD UREA NITROGEN 17 MG/DL (7-18)
[2017-04-24 07:14] LABS: AUTOMATED NEUTROPHIL # 7.1 TH/MM3 (1.8-7.7); BASOPHIL % 0.2 % (0.0-2.0); HEMATOCRIT 35.1 % (39.0-51.0); HEMOGLOBIN 11.5 GM/DL (13.0-17.0); LYMPH % 11.2 % (9.0-44.0); LYMPHOCYTE # 0.9 TH/MM3 (1.0-4.8); MEAN CELL VOLUME 85.3 FL (80.0-100.0); MEAN CORPUSCULAR HEMOGLOBIN 27.9 PG (27.0-34.0); MEAN CORPUSCULAR HGB CONC 32.7 % (32.0-36.0); MEAN PLATELET VOLUME 9.1 FL (7.0-11.0); MONO % 1.6 % (0.0-8.0); MONOCYTE # 0.1 TH/MM3 (0-0.9); PLATELET COUNT 128 TH/MM3 (150-450); RED BLOOD COUNT 4.12 MIL/MM3 (4.50-5.90); RED CELL DISTRIBUTION WIDTH 15.4 % (11.6-17.2); WHITE BLOOD COUNT 8.2 TH/MM3 (4.0-11.0)
[2017-04-24] MEDS: CHLORHEXIDINE 0.12% (ORAL KIT) 15 ML CUP MT SCH ×2 (08:00→20:00)
[2017-04-24] MEDS: ATENOLOL 100 MG TAB PO SCH (08:15)
[2017-04-24] MEDS: FOLIC ACID 1 MG TAB PO SCH (08:16)
[2017-04-24] MEDS: SERTRALINE HCL 100 MG TAB PO SCH (08:16)
[2017-04-24] MEDS: FAMOTIDINE 20 MG/2 ML VIAL IV PUSH SCH ×2 (08:16→20:36)
[2017-04-24] MEDS: SODIUM CHLORIDE 0.9% FLUSH 10 ML FLUSH IV FLUSH SCH ×2 (08:16→21:00)
[2017-04-24] MEDS: BUDESONIDE-FORMOTEROL 160/4.5 MCG INHALER INH SCH ×2 (08:17→20:36)
[2017-04-24] MEDS ORDERED: POTASSIUM CHLORIDE 25 MEQ EFFERVESCENT TAB PO PRN (10:30)
[2017-04-24] MEDS ORDERED: POTASSIUM CHLOR 20 MEQ PREMIX 100 ML IV PRN ×2 (10:30)
[2017-04-24] MEDS ORDERED: MAGNESIUM SULFATE INJ 2 GM in SODIUM CHLORIDE 0.9% INJ 96 ML IV PRN (10:30)
[2017-04-24] MEDS ORDERED: POTASSIUM PHOSPHATE INJ 30 MMOL in SODIUM CHLOR 0.9% 250 ML INJ 250 ML IV PRN (10:30)
[2017-04-24] MEDS ORDERED: POTASSIUM PHOSPHATE MONOBASIC 500 MG TAB PO PRN (10:30)
[2017-04-24] MEDS ORDERED: POTASSIUM PHOSPHATE MONOBASIC 500 MG TAB PO/TUBE PRN (10:30)
[2017-04-24] MEDS ORDERED: SODIUM PHOSPHATE INJ 30 MMOL in SODIUM CHLOR 0.9% 250 ML INJ 240 ML IV PRN (10:30)
[2017-04-24] MEDS ORDERED: MAGNESIUM OXIDE 400 MG TAB PO PRN (10:30)
[2017-04-24] MEDS ORDERED: POTASSIUM CHLOR 40 MEQ PREMIX 100 ML IV PRN ×2 (10:30)
[2017-04-24] MEDS ORDERED: MAGNESIUM SULFATE INJ 4 GM in SODIUM CHLORIDE 0.9% INJ 92 ML IV PRN (10:30)
--- NOTE | 2017-04-24 10:33 | HHI.CCPN ---
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 Patient was discharged home last Zhen became increasingly weak with altered mentation. Due to fever and worsening mental status EMS was called and brought the patient to the emergency department here at [place]. In the ED patient was hypoxemic and was placed on a nonrebreather. Temperature is 102.3, 13.5 WBC with 86% neutrophils. X-ray demonstrates left lower lobe pneumonia. Because of sepsis and hypoxia after ICU admission requested. Flu test negative. Received wound care and cefepime in the ED I evaluated the patient in the ED. He appears critically ill, and very weak. Chest exam revealed coarse breath sounds and crackles. I have started vancomycin and Zosyn. Also azithromycin for atypical coverage. IV Solu-Medrol and scheduled and when necessary breathing treatments for probable COPD exacerbation. CT of the head and chest requested 04/24: Lying in bed no acute distress. More awake alert. K 2.8 getting replaced. FiO2 has been weaned to NC Objective Vital Signs Date Time Temp Pulse Resp B/P (MAP) Pulse Ox O2 Delivery O2 Flow Rate FiO2 04/24/17 08:00 59 04/24/17 08:00 97.6 18 151/68 (95) 98 04/24/17 07:43 Nasal Cannula 4.00 04/23/17 20:14 35 Intake and Output 04/24/17 04/24/17 04/25/17 08:00 16:00 00:00 Intake Total 200 ml Output Total 700 ml Balance -500 ml Result Diagram: 04/24/17 0401 04/24/17 0401 Other Results Microbiology Date/Time Source Procedure Growth Status 04/23/17 10:57 Nasal Washing Influenza Types A,B Antigen (KYARA) - Final NEGATIVE FOR FLU A AND B ANTIGEN.... Complete Laboratory Tests Test 04/23/17 12:20 Blood Gas Puncture Site RT RADIAL Blood Gas Patient Temperature 98.6 Blood Gas HCO3 24 mmol/L (22-26) Blood Gas Base Excess -1.2 mmol/L (-2-2) Blood Gas Oxygen Saturation 97 % (90-100) Arterial Blood pH 7.34 (7.380-7.420) Arterial Blood Partial Pressure CO2 45 mmHg (38-42) Arterial Blood Partial Pressure O2 133 mmHG (61-120) Arterial Blood Oxygen Content 15.0 Vol % (12.0-20.0) Arterial Blood Carboxyhemoglobin 1.2 % (0-4) Arterial Blood Methemoglobin 0.6 % (0-2) Blood Gas Hemoglobin 10.8 G/DL (12.0-16.0) Oxygen Delivery Device Non-Rebreathing Mask Blood Gas Liter Flow 15 L/M Imaging Chest x-ray with left lower lobe pneumonia Objective Remarks GENERAL: Chronically ill-appearing, lying on ED bed SKIN: 3 cm pressure ulcer left ankle with some purulent drainage, mild erythema. Stage I decubitus ulcer sacral area. HEAD: Atraumatic. Normocephalic. EYES: Pupils equal and round. No injection or drainage. ENT: Dry mucous membranes. NECK: Trachea midline. CARDIOVASCULAR: Regular rate and rhythm. No murmur appreciated. RESPIRATORY: Rales in the left lower lung base. No wheezes GASTROINTESTINAL: Abdomen soft, non-tender, nondistended. MUSCULOSKELETAL: No obvious deformities. NEUROLOGICAL: Awake and alert. No obvious cranial nerve deficits. Moving all extremities. A/P Assessment and Plan NEURO: Metabolic encephalopathy Underlying cognitive impairment - Acute worsening of his mentation seems to be secondary to pneumonia and sepsis - Encephalopathy now improving with aggressive resuscitation and IV antibiotics - CT of the head negative for acute findings - PT/OT RESP: Acute hypoxemic respiratory failure Left lower lobe pneumonia COPD exacerbation History of small cell lung cancer - Oxygen by [place] to keep sat above 90% - DuoNeb every 6 hours and when necessary - IV Solu-Medrol 60 mg every 12 hours. Continue Advair - Continue vancomycin Zosyn and azithromycin - CT of the chest showed Left sided pneumonia CV: History of hypertension - s/p Normal saline IV fluids 2L bolus and continue 75 ml per hour - Lactic acid normal - Continue atenolol hold other antihypertensive due to sepsis GI: - Speech/swallow eval and diet per recommendation : - Monitor renal function closely. Strict intake output ID: Sepsis Healthcare associated pneumonia in left lower lobe - Broad-spectrum antibiotics with IV vancomycin and Zosyn and azithromycin - F/u blood and sputum cx. Negative for influenza HEME: Non-small cell lung cancer - Monitor CBC, CMP - Dr. Dugan consulted ENDO: Hypokalemia - Electrolyte replacement per protocol PROPH: - Bilateral lower extremity SCDs. Lovenox 40 mg sq qq. IV Famotidine LINES: - Utilize peripheral IVs, central line if needed Level 2 Transfer to Med/Srug. Hospitalist to assume care in am PT/OT/Speech Josué Higginbotham MD Apr 24, 2017 10:33
[2017-04-24] MEDS: hydrALAZINE HCL 20 MG/ML VIAL IV PRN (14:03)
[2017-04-24] MEDS: AZITHROMYCIN INJ 500 MG in SODIUM CHLOR 0.9% 250 ML INJ 250 ML IV SCH ×2 (14:04→14:11)
[2017-04-24] MEDS: ENOXAPARIN SODIUM 40 MG/0.4 ML SYRINGE SQ SCH (14:04)
[2017-04-24] MEDS ORDERED: POTASSIUM CHLORIDE 20 MEQ CONTROLLED RELEASE TAB PO ONE (14:45)
--- NOTE | 2017-04-24 16:06 | OTSOAPIP ---
TIME SESSION COMPLETED: PM TREATMENT TIME: 0 MINS. CHART REVIEWED. ATTEMPTED TO SEE FOR OT EVALUATION. PT WITH RECENT RESPIRATORY TREATMENT. DECLINE EVALUATION AT THIS TIME. WILL FOLLOW TOMORROW AND TRY AGAIN. Therapist: VIKI REYES OT/L Signature on file
[2017-04-24 16:13] LABS: PHOSPHORUS 2.3 MG/DL (2.5-4.9)
[2017-04-25] VITALS (8 sets, daily range): BP systolic 132–160; BP diastolic 70–92; PULSE 66–93; RESP 16–20; TEMP 97.9–98.4; O2SAT 93–98
[2017-04-25] MEDS: PIPERACIL-TAZO 4.5 GM PREMIX 100 ML IV SCH ×4 (02:00→20:00)
[2017-04-25] MEDS: methylPREDNISolone SOD SUCC 125 MG/2 ML VIAL IV PUSH SCH ×3 (02:00→13:57)
[2017-04-25] MEDS: CHLORHEXIDINE GLUCONATE 2 % 1 PACK (2 CLOTHS) TOP SCH (03:15)
[2017-04-25] MEDS: SODIUM CHLOR 0.9% 1000 ML INJ 1,000 ML IV SCH ×2 (03:16→17:16)
[2017-04-25] MEDS: RESP: ALBUTEROL 2.5 MG/IPRATROPIUM 0.5 MG NEB (SCH) NEB ×4 (04:35→20:17)
--- NOTE | 2017-04-25 06:41 | MB ---
cc: KETURAH DIXONIS DATE OF CONSULTATION April 24, 2017. REASON FOR CONSULTATION Patient with a history of lung cancer who is being is admitted with acute respiratory distress. HISTORY OF PRESENT ILLNESS This is a 76-year-old male who has a past medical history of small-cell lung cancer which was diagnosed in 2013. He received concurrent chemotherapy and radiation treatments. He also had prophylactic cranial irradiation. He achieved remission. He is now currently being closely monitored without any evidence of recurrent disease. He is chronically deconditioned. He has cognitive dysfunction with balance issues developed post-cranial irradiation. He also has peripheral neuropathy. He is wheelchair-bound. He was brought to the emergency room after he became increasingly weak with altered mentation. He also had fever. EMS was called. The patient was found to be hypoxemic and he was placed on non-rebreather treatment. He had a temperature 102.3. In the emergency room chest x-ray was obtained which showed clear lungs. He also had a CT of the chest which showed left lower lobe infiltrate and small areas of infiltrate involving the left perihilar distribution of the lingula as well as the left upper lobe. The patient was admitted to the hospital due to sepsis, healthcare associated pneumonia in the left lobe and metabolic encephalopathy. He also had acute hypoxemic respiratory distress. The patient was started on non-rebreather oxygen. He was given breathing treatments and IV steroids. The patient has continued to improve. He is currently lying in the bed and he is in no apparent distress. Supplemental oxygen has been slowly weaned. He remains on vancomycin, Zosyn and azithromycin. REVIEW OF SYSTEMS A comprehensive 14-point review of systems was completed which is negative except as described in the HPI. PAST MEDICAL HISTORY 1. History of small-cell lung cancer. 2. COPD. 3. Hypertension. 4. Anxiety. 5. 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 6. History of balance and gait issues. 7. Nonambulatory and is confined to wheelchair. PAST SURGICAL HISTORY 1. History of port placement. 2. Cholecystectomy. MEDICATIONS Reviewed in the EMR. No known drug allergies. FAMILY HISTORY Reviewed and it is noncontributory to this admission. SOCIAL HISTORY He is currently in a mcc. He quit smoking 10 years ago. He denies any illicit drug use. PHYSICAL EXAMINATION VITAL SIGNS: Blood pressure is 146/78, pulse is in the 90s, temperature is 96. GENERAL: Chronically ill-appearing male in no apparent distress. HEENT: Pupils are equal, round, reactive to light. EOMI. No oral thrush. No oral lesions. NECK: Supple without JVD. No bruits. No lymphadenopathy. Chest: Left lower lobe rhonchi heard. ABDOMEN: Soft, nontender, nondistended. Bowel sounds are present. EXTREMITIES: Without any edema, erythema or cyanosis. SKIN: Without any petechiae lesion or bruises. NEURO: No focal deficits. PSYCHIATRIC: Mood and affect is appropriate. LABORATORY DATA WBC is 8.2, hemoglobin 11.5, MCV is 85.3, platelet count is 128. Serum chemistries show a sodium of 143, potassium 2.9, chloride is 108, BUN is 17, creatinine is 0.83, phosphorus 2.3, magnesium is 2, albumin is 2.5. IMAGING STUDIES Reviewed in the EMR ASSESSMENT AND PLAN This is a 76-year-old male who has a history of small-cell lung cancer treated with concurrent chemotherapy and radiation treatments. He also had cranial irradiation. He is chronically debilitated. He has cognitive dysfunction. He is in a wheelchair. He was brought to the emergency department with respiratory distress and was found to have left-sided pneumonia. 1. Acute hypoxemic respiratory failure due to left-sided pneumonia. He is being treated with IV antibiotics, steroids and breathing treatments. He has significantly improved overnight. He is awake and alert. Supplemental oxygen is being weaned. Most recent scans do not show any evidence of recurrent lung cancer. I agree with current treatment. 2. Small cell lung cancer. Currently he remains in remission. He will follow up in the oncology clinic as scheduled previously. Thank you for allowing me to participate in the care of this patient. I will continue to follow this patient along. MD LADONNA Amador/HAKEEM /12:48 AM /6:21 AM
[2017-04-25] MEDS: CHLORHEXIDINE 0.12% (ORAL KIT) 15 ML CUP MT SCH ×2 (08:00→20:00)
[2017-04-25] MEDS: SERTRALINE HCL 100 MG TAB PO SCH (09:12)
[2017-04-25] MEDS: ATENOLOL 100 MG TAB PO SCH (09:12)
[2017-04-25] MEDS: FOLIC ACID 1 MG TAB PO SCH (09:12)
[2017-04-25] MEDS: FAMOTIDINE 20 MG/2 ML VIAL IV PUSH SCH ×2 (09:13→21:00)
[2017-04-25] MEDS: SODIUM CHLORIDE 0.9% FLUSH 10 ML FLUSH IV FLUSH SCH ×2 (09:13→21:00)
--- NOTE | 2017-04-25 10:25 | HHI.PR ---
Subjective Remarks in no acute distress. afebrile. on oxygen via [place]. Objective Vitals Vital Signs Date Time Temp Pulse Resp B/P (MAP) Pulse Ox O2 Delivery O2 Flow Rate FiO2 04/25/17 08:06 98.4 72 20 160/88 (112) 97 04/25/17 06:17 97.9 66 16 158/87 (110) 95 04/25/17 01:27 98.1 93 16 132/70 (90) 95 04/24/17 21:25 98.1 94 16 146/78 (100) 96 04/24/17 21:04 98 Nasal Cannula 4.00 04/24/17 18:00 68 04/24/17 18:00 97.6 67 24 155/65 (95) 98 04/24/17 16:00 98.8 68 18 139/64 (89) 97 04/24/17 16:00 69 04/24/17 14:00 60 04/24/17 12:00 60 04/24/17 12:00 98.0 60 16 178/88 (118) 98 I/O 04/24/17 04/24/17 04/24/17 04/25/17 04/25/17 04/25/17 07:00 15:00 23:00 07:00 15:00 23:00 Intake Total 300 ml 3300 ml Output Total 700 ml 1201 ml Balance -400 ml 2099 ml Intake Oral 600 ml IV Total 300 ml 2700 ml Output Urine Total 700 ml 1200 ml Stool Total 0 ml 1 ml # Voids 0 4 # Bowel Movements 3 Result Diagram: 04/24/17 0401 04/24/17 0401 Imaging Last Impressions Chest X-Ray 04/23/17 1051 Signed Impressions: Service Date/Time: Sunday, April 23, 2017 11:15 - CONCLUSION: Left lower lobe infiltrate. Maninder Bergman Jr., MD Head CT 04/23/17 0000 Signed Impressions: Service Date/Time: Sunday, April 23, 2017 13:39 - CONCLUSION: 1. No acute intracranial abnormality. 2. Extensive chronic small vessel ischemic change. Maninder Bergman Jr., MD Chest CT 04/23/17 0000 Signed Impressions: Service Date/Time: Sunday, April 23, 2017 13:43 - CONCLUSION: 1. Left lower lobe infiltrate with small areas of infiltrate involving the left perihilar distribution of the lingula as well as the left upper lobe. Infectious etiology is suspected. 2. Significant coronary artery atherosclerotic calcifications. Maninedr Bergman Jr., MD Objective Remarks GENERAL:with some sob- on oxygen via [place]. CARDIOVASCULAR: Regular rate and regular rhythm without murmurs, gallops, or rubs. RESPIRATORY: Clear to auscultation. Breath sounds equal bilaterally. No wheezes , rales, or rhonchi. GASTROINTESTINAL: Abdomen soft, non-tender, nondistended. Normal, active bowel sounds MUSCULOSKELETAL: Extremities without clubbing, cyanosis, or edema. NEURO: awake and alert- oriented to person, but not to time or place. Medications and IVs Inpatient Medications Acetaminophen (Tylenol Supp) 650 mg ONCE ONCE RECTAL Last administered on 04/23at 10:59; Start 04/23/17 at 11:00; Stop 04/23/17 at 11:01; Status DC Acetaminophen (Tylenol) 650 mg Q6H PRN PO PAIN 1-10 AND/OR FEVER >101F; Start 04/23/17 at 12:30 Albuterol/ Ipratropium (Duoneb Neb) 1 ampule Q4HR NEB PRN INH SHORTNESS OF BREATH; Start 04/23/17 at 12:30 Atenolol (Tenormin) 100 mg DAILY PO Last administered on 04/25/17at 09:12; Start 04/24/17 at 09:00 Azithromycin 500 mg/Sodium Chloride 250 ml @ 250 mls/hr Q24H IV Last administered on 04/24/17at 14:11; Start 04/23/17 at 15:00 Budesonide/ Formoterol Fumarate (Symbicort 160-4.5 Mcg Inh) 1 puff BID INH Last administered on 04/24/17at 20:36; Start 04/23/17 at 21:00 Cefepime HCl 2000 mg/Sodium Chloride 100 ml @ 200 mls/hr ONCE ONCE IV Last administered on 04/23/17at 10:59; Start 04/23/17 at 11:00; Stop 04/23/17 at 11:29 ; Status DC Chlorhexidine Gluconate (Chlorhexidine 2% Cloth) 3 pack UNSCH PRN TOP HYGIENIC CARE; Start 04/23/17 at 12:30 Chlorhexidine Gluconate (Peridex 0.12% Liq) 15 ml BID@08,20 MT ; Start 04/23/17 at 20:00 Enoxaparin Sodium (Lovenox Inj) 40 mg Q24H SQ Last administered on 04/24/17at 14 :04; Start 04/23/17 at 14:00 Famotidine (Pepcid Inj) 20 mg Q12HR IV PUSH Last administered on 04/25/17at 09: 13; Start 04/23/17 at 21:00 Folic Acid (Folate) 0.6 mg DAILY PO Last administered on 04/25/17at 09:12; Start 04/24/17 at 09:00 Hydralazine HCl (Apresoline Inj) 20 mg Q4H PRN IV SYS BP GREATER THAN 170 MMHG Last administered on 04/24/17at 14:03; Start 04/24/17 at 13:45 Magnesium Oxide (Mag-Ox) 800 mg UNSCH PRN PO For Magnesium 1.2 - 1.6 mg/dL; Start 04/24/17 at 10:30; Stop 04/25/17 at 08:12; Status DC Magnesium Sulfate 2 gm/Sodium Chloride 100 ml @ 50 mls/hr UNSCH PRN IV For Magnesium 1.2 - 1.6 mg/dL; Start 04/24/17 at 10:30; Stop 04/25/17 at 08:12; Status DC Magnesium Sulfate 4 gm/Sodium Chloride 100 ml @ 50 mls/hr UNSCH PRN IV For Magnesium 0.9 - 1.1 mg/dL; Start 04/24/17 at 10:30; Stop 04/25/17 at 08:12; Status DC Methylprednisolone Sodium Succinate (SoluMEDROL INJ) 60 mg Q12H IV PUSH Last administered on 04/25/17at 02:47; Start 04/23/17 at 14:00 Miscellaneous Information SPECIFIC LAB TO BE KIRSTY... ONCE ONCE .XX ; Start 04/25 at 17:45; Stop 04/25/17 at 17:46 Pharmacy Profile Note 0 ml @ 0 mls/hr UNSCH OTHER ; Start 04/23/17 at 12:30 Piperacillin Sod/ Tazobactam Sod 100 ml @ 200 mls/hr Q6H IV Last administered on 04/25/17at 09:13; Start 04/23/17 at 14:00 Potassium Phosphate (K-Phos) 2,000 mg UNSCH PRN PO/TUBE SEE LABEL COMMENTS; Start 04/24/17 at 10:30; Stop 04/25/17 at 08:12; Status DC Potassium Phosphate 30 mmol/ Sodium Chloride 260 ml @ 42 mls/hr UNSCH PRN IV SEE LABEL COMMENTS; Start 04/24/17 at 10:30; Stop 04/25/17 at 08:12; Status DC Potassium Bicarb/ Potassium Chloride (K-Lyte Cl Eff) 50 meq UNSCH PRN PO For Potassium 3.3 - 3.5 mEq/L; Start 04/24/17 at 10:30; Stop 04/25/17 at 08:12; Status DC Potassium Chloride (KCl) 40 meq NOW ONCE PO Last administered on 04/24/17at 16: 20; Start 04/24/17 at 14:45; Stop 04/24/17 at 14:46; Status DC Sertraline HCl (Zoloft) 100 mg DAILY PO Last administered on 04/25/17at 09:12; Start 04/24/17 at 09:00 Sodium Chloride 1,000 ml @ 999 mls/hr BOLUS ONCE IV Last administered on 04/23at 18:09; Start 04/23/17 at 17:30; Stop 04/23/17 at 18:30; Status DC Sodium Chloride (NS Flush) 2 ml BID IV FLUSH Last administered on 04/25/17at 09: 13; Start 04/23/17 at 21:00 Sodium Phosphate 30 mmol/Sodium Chloride 250 ml @ 42 mls/hr UNSCH PRN IV For Phosphorus < 2.5 mg/dL; Start 04/24/17 at 10:30; Stop 04/25/17 at 08:12; Status DC Vancomycin HCl 1000 mg/Sodium Chloride 250 ml @ 250 mls/hr ONCE ONCE IV ; Start 04/23/17 at 14:30; Stop 04/23/17 at 15:29; Status DC Vancomycin HCl 2000 mg/Sodium Chloride 520 ml @ 250 mls/hr Q18H IV Last administered on 04/24/17at 23:29; Start 04/24/17 at 06:00 Vancomycin/Sodium Chloride 200 ml @ 200 mls/hr ONCE ONCE IV ; Start 04/23/17 at 12:30; Stop 04/23/17 at 12:34; Status DC A/P Problem List: (1) Healthcare-associated pneumonia ICD Code: J18.9 - Pneumonia, unspecified organism (2) Sepsis ICD Code: A41.9 - Sepsis, unspecified organism (3) Acute hypoxemic respiratory failure ICD Code: J96.01 - Acute respiratory failure with hypoxia (4) COPD exacerbation ICD Code: J44.1 - Chronic obstructive pulmonary disease with (acute) exacerbation (5) Weakness ICD Code: R53.1 - Weakness Status: Acute (6) Small cell carcinoma of lung ICD Code: C34.90 - Malignant neoplasm of unspecified part of unspecified bronchus or lung Status: Acute (7) HTN (hypertension) ICD Code: I10 - Essential (primary) hypertension Status: Acute Assessment and Plan A/P Metabolic encephalopathy Underlying cognitive impairment - Acute worsening of his mentation seems to be secondary to pneumonia and sepsis - Encephalopathy now improving with aggressive resuscitation and IV antibiotics - CT of the head negative for acute findings - PT/OT Acute hypoxemic respiratory failure Left lower lobe pneumonia COPD exacerbation History of small cell lung cancer - Oxygen by [place] to keep sat above 90% - DuoNeb every 6 hours and when necessary - IV Solu-Medrol 60 mg every 12 hours. Continue Advair - Continue vancomycin Zosyn and azithromycin; will deescalate the antibiotics within the next 24 hrs- if stable. - CT of the chest showed Left sided pneumonia History of hypertension - s/p Normal saline IV fluids 2L bolus and continue 75 ml per hour - Lactic acid normal - Continue atenolol - will add amlodipine-continue to monitor and adjust the regimen as needed. - Speech/swallow eval and diet per recommendation Sepsis Healthcare associated pneumonia in left lower lobe - continue antibiotics with IV vancomycin and Zosyn and azithromycin - F/u blood and sputum cx. Negative for influenza Non-small cell lung cancer - Monitor CBC, CMP - Dr. Dugan consulted Hypokalemia -repeat potassium level today - Electrolyte replacement per protocol PROPH: - Bilateral lower extremity SCDs. Lovenox 40 mg sq qq. IV Famotidine Discharge Planning not ready for discharge yet. Problem Qualifiers (1) Sepsis: Qualified Codes: A41.9 - Sepsis, unspecified organism Enrique Willett MD Apr 25, 2017 10:25
[2017-04-25] MEDS: BUDESONIDE-FORMOTEROL 160/4.5 MCG INHALER INH SCH ×2 (12:18→21:00)
[2017-04-25] MEDS: amLODIPine BESYLATE 5 MG TAB PO SCH (12:23)
[2017-04-25] MEDS: ENOXAPARIN SODIUM 40 MG/0.4 ML SYRINGE SQ SCH (12:27)
[2017-04-25 13:15] LABS: CREATININE 1.04 MG/DL (0.60-1.30)
[2017-04-25] MEDS ORDERED: POTASSIUM CHLORIDE 10 MEQ CONTROLLED RELEASE TAB PO ONE (13:45)
[2017-04-25] MEDS: AZITHROMYCIN INJ 500 MG in SODIUM CHLOR 0.9% 250 ML INJ 250 ML IV SCH (15:00)
[2017-04-25] MEDS: VANCOMYCIN INJ 2,000 MG in SODIUM CHLORID 0.9% 500 ML INJ 500 ML IV SCH (17:16)
[2017-04-25] MEDS ORDERED: PHARMACY ORDERED LAB ONE (17:45)
[2017-04-25] MEDS: RESP: ALBUTEROL 2.5 MG/IPRATROPIUM 0.5 MG NEB (PRN) INH (23:40)
[2017-04-26] VITALS (8 sets, daily range): BP systolic 159–198; BP diastolic 84–90; PULSE 70–93; RESP 18–21; TEMP 97.4–98.9; O2SAT 92–94
[2017-04-26] MEDS ORDERED: HALOPERIDOL LACTATE 5 MG/ML AMP IM ONE (00:15)
[2017-04-26] MEDS: PIPERACIL-TAZO 4.5 GM PREMIX 100 ML IV SCH ×2 (03:09→08:06)
[2017-04-26] MEDS: methylPREDNISolone SOD SUCC 125 MG/2 ML VIAL IV PUSH SCH ×2 (03:09→13:58)
[2017-04-26] MEDS: RESP: ALBUTEROL 2.5 MG/IPRATROPIUM 0.5 MG NEB (SCH) NEB ×4 (03:48→20:41)
[2017-04-26] MEDS: CHLORHEXIDINE GLUCONATE 2 % 1 PACK (2 CLOTHS) TOP SCH (04:00)
[2017-04-26] MEDS: SODIUM CHLOR 0.9% 1000 ML INJ 1,000 ML IV SCH ×2 (06:20→20:45)
[2017-04-26] MEDS: CHLORHEXIDINE 0.12% (ORAL KIT) 15 ML CUP MT SCH ×2 (08:00→20:00)
[2017-04-26] MEDS: HALOPERIDOL LACTATE 5 MG/ML AMP IM PRN (08:05)
[2017-04-26] MEDS: ATENOLOL 100 MG TAB PO SCH (08:06)
[2017-04-26] MEDS: FAMOTIDINE 20 MG/2 ML VIAL IV PUSH SCH ×2 (08:06→20:44)
[2017-04-26] MEDS: FOLIC ACID 1 MG TAB PO SCH (08:06)
[2017-04-26] MEDS: amLODIPine BESYLATE 5 MG TAB PO SCH (08:06)
[2017-04-26] MEDS: SERTRALINE HCL 100 MG TAB PO SCH (08:06)
[2017-04-26] MEDS: BUDESONIDE-FORMOTEROL 160/4.5 MCG INHALER INH SCH ×2 (08:07→20:44)
[2017-04-26] MEDS: SODIUM CHLORIDE 0.9% FLUSH 10 ML FLUSH IV FLUSH SCH ×2 (08:07→20:44)
--- NOTE | 2017-04-26 10:03 | HHI.PR ---
Subjective Remarks in no acute distress. however on oxygen via N/C. afebrile. had some diarrhea over night. agitated over night and received a dose of haldol earlier. d/w the RN. Objective Vitals Vital Signs Date Time Temp Pulse Resp B/P (MAP) Pulse Ox O2 Delivery O2 Flow Rate FiO2 04/26/17 09:22 93 Nasal Cannula 4.00 04/26/17 08:00 98.0 84 20 189/90 (123) 94 04/26/17 04:00 Nasal Cannula 4.00 04/26/17 04:00 98.1 81 21 159/87 (111) 94 04/26/17 00:00 98.9 70 21 168/84 (112) 93 04/26/17 00:00 Nasal Cannula 4.00 04/25/17 23:42 95 Nasal Cannula 4.00 04/25/17 21:08 98.1 68 18 158/92 (114) 93 04/25/17 21:08 Nasal Cannula 4.00 04/25/17 16:10 98.0 74 20 156/84 (108) 98 04/25/17 16:10 Nasal Cannula 4.00 04/25/17 15:38 93 Nasal Cannula 3.00 04/25/17 12:10 98.2 74 20 158/86 (110) 98 04/25/17 10:06 Nasal Cannula 3.00 I/O 04/25/17 04/25/17 04/25/17 04/26/17 04/26/17 04/26/17 07:00 15:00 23:00 07:00 15:00 23:00 Intake Total 100 ml 710 ml 1143 ml Balance 100 ml 710 ml 1143 ml Intake Oral 360 ml 410 ml IV Total 100 ml 350 ml 733 ml # Voids 4 5 4 # Bowel Movements 3 5 2 Result Diagram: 04/24/17 0401 04/25/17 1200 Imaging Last Impressions Chest X-Ray 04/23/17 1051 Signed Impressions: Service Date/Time: Sunday, April 23, 2017 11:15 - CONCLUSION: Left lower lobe infiltrate. Maninder Bergman Jr., MD Head CT 04/23/17 0000 Signed Impressions: Service Date/Time: Sunday, April 23, 2017 13:39 - CONCLUSION: 1. No acute intracranial abnormality. 2. Extensive chronic small vessel ischemic change. Maninder Bergman Jr., MD Chest CT 04/23/17 0000 Signed Impressions: Service Date/Time: Sunday, April 23, 2017 13:43 - CONCLUSION: 1. Left lower lobe infiltrate with small areas of infiltrate involving the left perihilar distribution of the lingula as well as the left upper lobe. Infectious etiology is suspected. 2. Significant coronary artery atherosclerotic calcifications. Maninder Bergman Jr., MD Objective Remarks GENERAL:with some sob- on oxygen via N/C. CARDIOVASCULAR: Regular rate and regular rhythm without murmurs, gallops, or rubs. RESPIRATORY: Clear to auscultation. Breath sounds equal bilaterally. No wheezes , rales, or rhonchi. GASTROINTESTINAL: Abdomen soft, non-tender, nondistended. Normal, active bowel sounds MUSCULOSKELETAL: Extremities without clubbing, cyanosis, or edema. NEURO: awake and alert- oriented to person, but not to time or place. Medications and IVs Inpatient Medications Acetaminophen (Tylenol Supp) 650 mg ONCE ONCE RECTAL Last administered on 04/23at 10:59; Start 04/23/17 at 11:00; Stop 04/23/17 at 11:01; Status DC Acetaminophen (Tylenol) 650 mg Q6H PRN PO PAIN 1-10 AND/OR FEVER >101F; Start 04/23/17 at 12:30 Albuterol/ Ipratropium (Duoneb Neb) 1 ampule Q4HR NEB PRN INH SHORTNESS OF BREATH Last administered on 04/25/17at 23:40; Start 04/23/17 at 12:30 Amlodipine Besylate (Norvasc) 5 mg DAILY PO Last administered on 04/26/17at 08: 06; Start 04/25/17 at 10:30 Atenolol (Tenormin) 100 mg DAILY PO Last administered on 04/26/17at 08:06; Start 04/24/17 at 09:00 Azithromycin 500 mg/Sodium Chloride 250 ml @ 250 mls/hr Q24H IV Last administered on 04/25/17at 15:00; Start 04/23/17 at 15:00 Budesonide/ Formoterol Fumarate (Symbicort 160-4.5 Mcg Inh) 1 puff BID INH Last administered on 04/26/17at 08:07; Start 04/23/17 at 21:00 Cefepime HCl 2000 mg/Sodium Chloride 100 ml @ 200 mls/hr ONCE ONCE IV Last administered on 04/23/17at 10:59; Start 04/23/17 at 11:00; Stop 04/23/17 at 11:29 ; Status DC Chlorhexidine Gluconate (Chlorhexidine 2% Cloth) 3 pack UNSCH PRN TOP HYGIENIC CARE; Start 04/23/17 at 12:30 Chlorhexidine Gluconate (Peridex 0.12% Liq) 15 ml BID@08,20 MT ; Start 04/23/17 at 20:00 Enoxaparin Sodium (Lovenox Inj) 40 mg Q24H SQ Last administered on 04/25/17at 12 :27; Start 04/23/17 at 14:00 Famotidine (Pepcid Inj) 20 mg Q12HR IV PUSH Last administered on 04/26/17at 08: 06; Start 04/23/17 at 21:00 Folic Acid (Folate) 0.6 mg DAILY PO Last administered on 04/26/17at 08:06; Start 04/24/17 at 09:00 Haloperidol Lactate (Haldol Inj) 2 mg Q6H PRN IM AGITATION Last administered on 04/26/17at 08:05; Start 04/26/17 at 08:00 Hydralazine HCl (Apresoline Inj) 20 mg Q4H PRN IV SYS BP GREATER THAN 170 MMHG Last administered on 04/24/17at 14:03; Start 04/24/17 at 13:45 Magnesium Oxide (Mag-Ox) 800 mg UNSCH PRN PO For Magnesium 1.2 - 1.6 mg/dL; Start 04/24/17 at 10:30; Stop 04/25/17 at 08:12; Status DC Magnesium Sulfate 2 gm/Sodium Chloride 100 ml @ 50 mls/hr UNSCH PRN IV For Magnesium 1.2 - 1.6 mg/dL; Start 04/24/17 at 10:30; Stop 04/25/17 at 08:12; Status DC Magnesium Sulfate 4 gm/Sodium Chloride 100 ml @ 50 mls/hr UNSCH PRN IV For Magnesium 0.9 - 1.1 mg/dL; Start 04/24/17 at 10:30; Stop 04/25/17 at 08:12; Status DC Methylprednisolone Sodium Succinate (SoluMEDROL INJ) 60 mg Q12H IV PUSH Last administered on 04/26/17at 03:09; Start 04/23/17 at 14:00 Miscellaneous Information SPECIFIC LAB TO BE DRAWN:[facility] DATE TO BE DRBrad.. ONCE ONCE .XX ; Start 04/27/17 at 05:45; Stop 04/27/17 at 05:46 Pharmacy Profile Note 0 ml @ 0 mls/hr UNSCH OTHER ; Start 04/23/17 at 12:30 Piperacillin Sod/ Tazobactam Sod 100 ml @ 200 mls/hr Q6H IV Last administered on 04/26/17at 08:06; Start 04/23/17 at 14:00 Potassium Phosphate (K-Phos) 2,000 mg UNSCH PRN PO/TUBE SEE LABEL COMMENTS; Start 04/24/17 at 10:30; Stop 04/25/17 at 08:12; Status DC Potassium Phosphate 30 mmol/ Sodium Chloride 260 ml @ 42 mls/hr UNSCH PRN IV SEE LABEL COMMENTS; Start 04/24/17 at 10:30; Stop 04/25/17 at 08:12; Status DC Potassium Bicarb/ Potassium Chloride (K-Lyte Cl Eff) 50 meq UNSCH PRN PO For Potassium 3.3 - 3.5 mEq/L; Start 04/24/17 at 10:30; Stop 04/25/17 at 08:12; Status DC Potassium Chloride (KCl) 30 meq ONCE ONCE PO Last administered on 04/25/17at 13 :56; Start 04/25/17 at 13:45; Stop 04/25/17 at 13:52; Status DC Sertraline HCl (Zoloft) 100 mg DAILY PO Last administered on 04/26/17at 08:06; Start 04/24/17 at 09:00 Sodium Chloride 1,000 ml @ 999 mls/hr BOLUS ONCE IV Last administered on 04/23at 18:09; Start 04/23/17 at 17:30; Stop 04/23/17 at 18:30; Status DC Sodium Chloride (NS Flush) 2 ml BID IV FLUSH Last administered on 04/26/17at 08: 07; Start 04/23/17 at 21:00 Sodium Phosphate 30 mmol/Sodium Chloride 250 ml @ 42 mls/hr UNSCH PRN IV For Phosphorus < 2.5 mg/dL; Start 04/24/17 at 10:30; Stop 04/25/17 at 08:12; Status DC Vancomycin HCl 1000 mg/Sodium Chloride 250 ml @ 250 mls/hr ONCE ONCE IV ; Start 04/23/17 at 14:30; Stop 04/23/17 at 15:29; Status DC Vancomycin HCl 1500 mg/Sodium Chloride 515 ml @ 250 mls/hr Q18H IV ; Start at 12:00 Vancomycin HCl 2000 mg/Sodium Chloride 520 ml @ 250 mls/hr Q18H IV Last administered on 04/25/17at 17:16; Start 04/24/17 at 06:00; Stop 04/25/17 at 21:21 ; Status DC Vancomycin/Sodium Chloride 200 ml @ 200 mls/hr ONCE ONCE IV ; Start 04/23/17 at 12:30; Stop 04/23/17 at 12:34; Status DC A/P Problem List: (1) Healthcare-associated pneumonia ICD Code: J18.9 - Pneumonia, unspecified organism (2) Sepsis ICD Code: A41.9 - Sepsis, unspecified organism (3) Acute hypoxemic respiratory failure ICD Code: J96.01 - Acute respiratory failure with hypoxia (4) COPD exacerbation ICD Code: J44.1 - Chronic obstructive pulmonary disease with (acute) exacerbation (5) Weakness ICD Code: R53.1 - Weakness Status: Acute (6) Small cell carcinoma of lung ICD Code: C34.90 - Malignant neoplasm of unspecified part of unspecified bronchus or lung Status: Acute (7) HTN (hypertension) ICD Code: I10 - Essential (primary) hypertension Status: Acute Assessment and Plan A/P Metabolic encephalopathy Underlying cognitive impairment - Acute worsening of his mentation seems to be secondary to pneumonia and sepsis - will add Haldol as needed and consult psych - CT of the head negative for acute findings - PT/OT Acute hypoxemic respiratory failure Left lower lobe pneumonia COPD exacerbation History of small cell lung cancer - Oxygen by PR to keep sat above 90% - DuoNeb every 6 hours and when necessary -taper down IV Solu-Medrol to 40 mg every 12 hours. Continue Advair - dc broad-spectrum antibiotics and change to Levaquin - CT of the chest showed Left sided pneumonia History of hypertension - s/p Normal saline IV fluids 2L bolus and continue 75 ml per hour - Lactic acid normal - Continue atenolol - increase amlodipine-continue to monitor and adjust the regimen as needed. Sepsis Healthcare associated pneumonia in left lower lobe - continue antibiotics - as noted above. - blood and sputum cultures negative so far. Negative for influenza diarrhea- check the stool for c-diff. Non-small cell lung cancer - Monitor CBC, CMP - Dr. Dugan consulted Hypokalemia- better -replace as needed. PROPH: - Bilateral lower extremity SCDs. Lovenox 40 mg sq qq. IV Famotidine Discharge Planning not ready for discharge yet. Problem Qualifiers (1) Sepsis: Qualified Codes: A41.9 - Sepsis, unspecified organism Enrique Willett MD Apr 26, 2017 10:03
[2017-04-26] MEDS: LEVOFLOXACIN 500 MG PREMIX INJ 100 ML IV SCH (10:54)
[2017-04-26] MEDS ORDERED: VANCOMYCIN INJ 1,500 MG in SODIUM CHLORID 0.9% 500 ML INJ 500 ML IV SCH (12:00)
[2017-04-26] MEDS: ENOXAPARIN SODIUM 40 MG/0.4 ML SYRINGE SQ SCH (12:10)
[2017-04-26] MEDS: hydrALAZINE HCL 20 MG/ML VIAL IV PRN (12:10)
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
[2017-04-26] MEDS: OLANZapine 2.5 MG TAB PO SCH ×2 (13:58→20:44)
[2017-04-26] MEDS ORDERED: NIFEdipine 30 MG SUSTAINED RELEASE TAB PO ONE (17:45)
[2017-04-27] VITALS: BP 167/90; PULSE 86; RESP 22; TEMP 98.1; O2SAT 91
[2017-04-27] MEDS: HALOPERIDOL LACTATE 5 MG/ML AMP IM PRN (01:34)
[2017-04-27] MEDS: methylPREDNISolone SOD SUCC 125 MG/2 ML VIAL IV PUSH SCH (02:00)
[2017-04-27] MEDS: OLANZapine IM 10 MG VIAL IM PRN (03:17)
[2017-04-27] MEDS: CHLORHEXIDINE GLUCONATE 2 % 1 PACK (2 CLOTHS) TOP SCH (04:00)
[2017-04-27] MEDS: RESP: ALBUTEROL 2.5 MG/IPRATROPIUM 0.5 MG NEB (SCH) NEB ×3 (04:20→15:47)
[2017-04-27] MEDS ORDERED: PHARMACY ORDERED LAB ONE (05:45)
[2017-04-27] MEDS: CHLORHEXIDINE 0.12% (ORAL KIT) 15 ML CUP MT SCH ×2 (08:00→20:00)
[2017-04-27] MEDS: FAMOTIDINE 20 MG/2 ML VIAL IV PUSH SCH (09:00)
[2017-04-27] MEDS: FOLIC ACID 1 MG TAB PO SCH (09:00)
[2017-04-27] MEDS: BUDESONIDE-FORMOTEROL 160/4.5 MCG INHALER INH SCH (09:00)
[2017-04-27] MEDS: OLANZapine 2.5 MG TAB PO SCH (09:00)
[2017-04-27] MEDS: SODIUM CHLORIDE 0.9% FLUSH 10 ML FLUSH IV FLUSH SCH (09:00)
[2017-04-27] MEDS: LEVOFLOXACIN 500 MG PREMIX INJ 100 ML IV SCH (11:00)
[2017-04-27 11:12] VITALS: O2SAT 92
[2017-04-27 12:10] VITALS: BP 186/97; PULSE 74; RESP 19; TEMP 97.8; O2SAT 92
--- NOTE | 2017-04-27 12:40 | HHI.PR ---
Subjective Remarks in no acute distress. but not cooperative with the exam. agitated over night and received a dose of Zyprexa last night. afebrile. d/w the RN. Objective Vitals Vital Signs Date Time Temp Pulse Resp B/P (MAP) Pulse Ox O2 Delivery O2 Flow Rate FiO2 04/27/17 11:12 92 Nasal Cannula 3.00 04/27/17 00:00 98.1 86 22 167/90 (115) 91 04/27/17 00:00 Nasal Cannula 3.00 04/26/17 21:04 92 Nasal Cannula 3.00 04/26/17 20:00 97.4 77 18 161/89 (113) 92 04/26/17 20:00 Nasal Cannula 3.00 04/26/17 16:00 97.5 73 20 198/88 (124) 94 I/O 04/26/17 04/26/17 04/26/17 04/27/17 04/27/17 04/27/17 07:00 15:00 23:00 07:00 15:00 23:00 Intake Total 1143 ml 200 ml 600 ml 417 ml Balance 1143 ml 200 ml 600 ml 417 ml Intake Oral 410 ml 600 ml IV Total 733 ml 200 ml 417 ml # Voids 4 1 3 # Bowel Movements 2 1 2 Result Diagram: 04/24/17 0401 04/25/17 1200 Imaging Last Impressions Chest X-Ray 04/23/17 1051 Signed Impressions: Service Date/Time: Sunday, April 23, 2017 11:15 - CONCLUSION: Left lower lobe infiltrate. Maninder Bergman Jr., MD Head CT 04/23/17 0000 Signed Impressions: Service Date/Time: Sunday, April 23, 2017 13:39 - CONCLUSION: 1. No acute intracranial abnormality. 2. Extensive chronic small vessel ischemic change. Maninder Bergman Jr., MD Chest CT 04/23/17 0000 Signed Impressions: Service Date/Time: Sunday, April 23, 2017 13:43 - CONCLUSION: 1. Left lower lobe infiltrate with small areas of infiltrate involving the left perihilar distribution of the lingula as well as the left upper lobe. Infectious etiology is suspected. 2. Significant coronary artery atherosclerotic calcifications. Maninder Bergman Jr., MD Objective Remarks GENERAL:with some sob- on oxygen via N/C. very uncooperative with the exam today. Medications and IVs Inpatient Medications Acetaminophen (Tylenol Supp) 650 mg ONCE ONCE RECTAL Last administered on 04/23at 10:59; Start 04/23/17 at 11:00; Stop 04/23/17 at 11:01; Status DC Acetaminophen (Tylenol) 650 mg Q6H PRN PO PAIN 1-10 AND/OR FEVER >101F; Start 04/23/17 at 12:30 Albuterol/ Ipratropium (Duoneb Neb) 1 ampule Q4HR NEB PRN INH SHORTNESS OF BREATH Last administered on 04/25/17at 23:40; Start 04/23/17 at 12:30 Amlodipine Besylate (Norvasc) 10 mg DAILY PO ; Start 04/27/17 at 09:00 Atenolol (Tenormin) 100 mg DAILY PO Last administered on 04/26/17at 08:06; Start 04/24/17 at 09:00 Azithromycin 500 mg/Sodium Chloride 250 ml @ 250 mls/hr Q24H IV Last administered on 04/25/17at 15:00; Start 04/23/17 at 15:00; Stop 04/26/17 at 09:59 ; Status DC Budesonide/ Formoterol Fumarate (Symbicort 160-4.5 Mcg Inh) 1 puff BID INH Last administered on 04/26/17at 20:44; Start 04/23/17 at 21:00 Cefepime HCl 2000 mg/Sodium Chloride 100 ml @ 200 mls/hr ONCE ONCE IV Last administered on 04/23/17at 10:59; Start 04/23/17 at 11:00; Stop 04/23/17 at 11:29 ; Status DC Chlorhexidine Gluconate (Chlorhexidine 2% Cloth) 3 pack UNSCH PRN TOP HYGIENIC CARE; Start 04/23/17 at 12:30 Chlorhexidine Gluconate (Peridex 0.12% Liq) 15 ml BID@08,20 MT ; Start 04/23/17 at 20:00 Enoxaparin Sodium (Lovenox Inj) 40 mg Q24H SQ Last administered on 04/26/17at 12 :10; Start 04/23/17 at 14:00 Famotidine (Pepcid Inj) 20 mg Q12HR IV PUSH Last administered on 04/26/17at 20: 44; Start 04/23/17 at 21:00 Folic Acid (Folate) 0.6 mg DAILY PO Last administered on 04/26/17at 08:06; Start 04/24/17 at 09:00 Haloperidol Lactate (Haldol Inj) 2 mg Q6H PRN IM AGITATION Last administered on 04/27/17at 01:34; Start 04/26/17 at 08:00 Hydralazine HCl (Apresoline Inj) 20 mg Q4H PRN IV SYS BP GREATER THAN 170 MMHG Last administered on 04/26/17at 12:10; Start 04/24/17 at 13:45 Levofloxacin/ Dextrose 100 ml @ 100 mls/hr Q24H IV Last administered on at 10:54; Start 04/26/17 at 11:00 Magnesium Oxide (Mag-Ox) 800 mg UNSCH PRN PO For Magnesium 1.2 - 1.6 mg/dL; Start 04/24/17 at 10:30; Stop 04/25/17 at 08:12; Status DC Magnesium Sulfate 2 gm/Sodium Chloride 100 ml @ 50 mls/hr UNSCH PRN IV For Magnesium 1.2 - 1.6 mg/dL; Start 04/24/17 at 10:30; Stop 04/25/17 at 08:12; Status DC Magnesium Sulfate 4 gm/Sodium Chloride 100 ml @ 50 mls/hr UNSCH PRN IV For Magnesium 0.9 - 1.1 mg/dL; Start 04/24/17 at 10:30; Stop 04/25/17 at 08:12; Status DC Methylprednisolone Sodium Succinate (SoluMEDROL INJ) 60 mg Q12H IV PUSH Last administered on 04/26/17at 13:58; Start 04/23/17 at 14:00 Miscellaneous Information SPECIFIC LAB TO BE ... ONCE ONCE .XX Last administered on 04/25/17at 17:13; Start 04/25/17 at 17:45; Stop 04/25/17 at 17:46 ; Status DC Nifedipine (Procardia Xl) 30 mg ONCE ONCE PO Last administered on 04/26/17at 17 :42; Start 04/26/17 at 17:45; Stop 04/26/17 at 17:46; Status DC Olanzapine (ZyPREXA INJ) 5 mg Q12H PRN IM If agitation Last administered on at 03:17; Start 04/26/17 at 12:30 Olanzapine (ZyPREXA) 2.5 mg Q12HR PO Last administered on 04/26/17at 20:44; Start 04/26/17 at 12:30 Pharmacy Profile Note 0 ml @ 0 mls/hr UNSCH OTHER ; Start 04/23/17 at 12:30; Stop 04/26/17 at 09:59; Status DC Piperacillin Sod/ Tazobactam Sod 100 ml @ 200 mls/hr Q6H IV Last administered on 04/26/17at 08:06; Start 04/23/17 at 14:00; Stop 04/26/17 at 09:59; Status DC Potassium Phosphate (K-Phos) 2,000 mg UNSCH PRN PO/TUBE SEE LABEL COMMENTS; Start 04/24/17 at 10:30; Stop 04/25/17 at 08:12; Status DC Potassium Phosphate 30 mmol/ Sodium Chloride 260 ml @ 42 mls/hr UNSCH PRN IV SEE LABEL COMMENTS; Start 04/24/17 at 10:30; Stop 04/25/17 at 08:12; Status DC Potassium Bicarb/ Potassium Chloride (K-Lyte Cl Eff) 50 meq UNSCH PRN PO For Potassium 3.3 - 3.5 mEq/L; Start 04/24/17 at 10:30; Stop 04/25/17 at 08:12; Status DC Potassium Chloride (KCl) 30 meq ONCE ONCE PO Last administered on 04/25/17at 13 :56; Start 04/25/17 at 13:45; Stop 04/25/17 at 13:52; Status DC Sertraline HCl (Zoloft) 100 mg DAILY PO Last administered on 04/26/17at 08:06; Start 04/24/17 at 09:00 Sodium Chloride 1,000 ml @ 999 mls/hr BOLUS ONCE IV Last administered on 04/23at 18:09; Start 04/23/17 at 17:30; Stop 04/23/17 at 18:30; Status DC Sodium Chloride (NS Flush) 2 ml BID IV FLUSH Last administered on 04/26/17at 08: 07; Start 04/23/17 at 21:00 Sodium Phosphate 30 mmol/Sodium Chloride 250 ml @ 42 mls/hr UNSCH PRN IV For Phosphorus < 2.5 mg/dL; Start 04/24/17 at 10:30; Stop 04/25/17 at 08:12; Status DC Vancomycin HCl 1000 mg/Sodium Chloride 250 ml @ 250 mls/hr ONCE ONCE IV ; Start 04/23/17 at 14:30; Stop 04/23/17 at 15:29; Status DC Vancomycin HCl 1500 mg/Sodium Chloride 515 ml @ 250 mls/hr Q18H IV ; Start at 12:00; Stop 04/26/17 at 12:00; Status DC Vancomycin HCl 2000 mg/Sodium Chloride 520 ml @ 250 mls/hr Q18H IV Last administered on 04/25/17at 17:16; Start 04/24/17 at 06:00; Stop 04/25/17 at 21:21 ; Status DC Vancomycin/Sodium Chloride 200 ml @ 200 mls/hr ONCE ONCE IV ; Start 04/23/17 at 12:30; Stop 04/23/17 at 12:34; Status DC A/P Problem List: (1) Healthcare-associated pneumonia ICD Code: J18.9 - Pneumonia, unspecified organism (2) Sepsis ICD Code: A41.9 - Sepsis, unspecified organism (3) Acute hypoxemic respiratory failure ICD Code: J96.01 - Acute respiratory failure with hypoxia (4) COPD exacerbation ICD Code: J44.1 - Chronic obstructive pulmonary disease with (acute) exacerbation (5) Weakness ICD Code: R53.1 - Weakness Status: Acute (6) Small cell carcinoma of lung ICD Code: C34.90 - Malignant neoplasm of unspecified part of unspecified bronchus or lung Status: Acute (7) HTN (hypertension) ICD Code: I10 - Essential (primary) hypertension Status: Acute Assessment and Plan A/P Metabolic encephalopathy Underlying cognitive impairment not cooperative with the medical care - Acute worsening of his mentation seems to be secondary to pneumonia and sepsis - psych consulted and started on Zyprexa - CT of the head negative for acute findings - PT/OT Acute hypoxemic respiratory failure Left lower lobe pneumonia COPD exacerbation History of small cell lung cancer - Oxygen by NC to keep sat above 90% - continue neb treatment -taper down IV steroids. Continue Advair -continue Levaquin - CT of the chest showed Left sided pneumonia History of hypertension; BP not well controlled-partly due to agitation - Lactic acid normal - Continue atenolol and amlodipine-continue to monitor and adjust the regimen as needed. Sepsis Healthcare associated pneumonia in left lower lobe - continue antibiotics - as noted above. - blood and sputum cultures negative so far. Negative for influenza diarrhea- check the stool for c-diff. Non-small cell lung cancer - Monitor CBC, CMP - Dr. Dugan consulted Hypokalemia- better -replace as needed. PROPH: - Bilateral lower extremity SCDs. Lovenox 40 mg sq qq. IV Famotidine Discharge Planning not ready for discharge yet. Problem Qualifiers (1) Sepsis: Qualified Codes: A41.9 - Sepsis, unspecified organism Enrique Willett MD Apr 27, 2017 12:40
--- NOTE | 2017-04-27 13:31 | HHI.PYPN ---
Subjective Remarks The patient was seen today for psychiatric reevaluation. Chart was reviewed. Discussed with nursing charge and also with primary attending. On psychiatric evaluation today the patient is sedated, poorly cooperative, mumbling words. He says that he feels fine, doesn't report any mood symptoms, denies suicidal and homicidal ideation, he denies visual and auditory hallucinations. However, as per report the patient has been episodically agitated that this related, needing ETOs. Review of Systems Except as stated in HPI: all other systems reviewed are Neg Mental Status Examination Appearance: Appropriate Consciousness: Alert Orientation: x4 Motor Activity: Normal gait Speech: Unremarkable Language: Adequate Fund of Knowledge: Adequate Attention and Concentration: Adequate Memory: Unremarkable Mood: Appropriate Affect: Irritable Thought Process & Associations: Intact Thought Content: Appropriate Hallucination Type: Visual Delusion Type: None Suicidal Ideation: No Suicidal Plan: No Suicidal Intention: No Homicidal Ideation: No Homicidal Plan: No Homicidal Intention: No Insight: Fair Judgment: Impulsive Results Labs Date/Time Source Procedure Growth Status 04/23/17 10:57 Blood Peripheral Aerobic Blood Culture - Preliminary NO GROWTH IN 4 DAYS Resulted 04/23/17 10:57 Blood Peripheral Anaerobic Blood Culture - Preliminary NO GROWTH IN 4 DAYS Resulted 04/23/17 18:20 Sputum Expectorated Sputum Gram Stain - Final Complete 04/23/17 18:20 Sputum Expectorated Sputum Sputum Culture - Final HEAVY GROWTH NORMAL RESPIRATORY CHEN Complete 04/23/17 14:40 Wound Ankle Gram Stain - Final Complete 04/23/17 14:40 Wound Culture - Final Proteus Mirabilis Complete Vitals/IOs Vital Signs Date Time Temp Pulse Resp B/P (MAP) Pulse Ox O2 Delivery O2 Flow Rate FiO2 04/27/17 12:10 97.8 74 19 186/97 (126) 92 04/27/17 11:12 Nasal Cannula 3.00 04/23/17 20:14 35 Intake and Output 04/27/17 04/27/17 04/28/17 08:00 16:00 00:00 Intake Total 417 ml Balance 417 ml Assessment & Plan Problem List: (1) Unspecified psychosis ICD Codes: F29 - Unspecified psychosis not due to a substance or known physiological condition Assessment & Plan: Continue current psychotropic regimen. Assessment & Plan Estimated LOS: days Justification for Cont. Inpt. No indication of psychiatric admission at this moment. Mike Perry MD Apr 27, 2017 13:31
[2017-04-27] MEDS: methylPREDNISolone SOD SUCC 40 MG/1 ML VIAL IV PUSH SCH (16:09)
[2017-04-27 16:10] VITALS: BP 186/88; PULSE 73; RESP 18; TEMP 98; O2SAT 100
[2017-04-27] MEDS: ENOXAPARIN SODIUM 40 MG/0.4 ML SYRINGE SQ SCH (16:10)
[2017-04-27] MEDS: ATENOLOL 100 MG TAB PO SCH (16:10)
[2017-04-27] MEDS: SERTRALINE HCL 100 MG TAB PO SCH (16:11)
[2017-04-27] MEDS: SODIUM CHLOR 0.9% 1000 ML INJ 1,000 ML IV SCH (16:24)
[2017-04-27 16:36] LABS: AUTOMATED NEUTROPHIL # 8.5 TH/MM3 (1.8-7.7); BASOPHIL % 0.2 % (0.0-2.0); EOSINOPHIL % 0.4 % (0.0-4.0); HEMATOCRIT 33.8 % (39.0-51.0); HEMOGLOBIN 11.2 GM/DL (13.0-17.0); LYMPH % 8.8 % (9.0-44.0); LYMPHOCYTE # 0.9 TH/MM3 (1.0-4.8); MEAN CELL VOLUME 83.7 FL (80.0-100.0); MEAN CORPUSCULAR HEMOGLOBIN 27.7 PG (27.0-34.0); MEAN CORPUSCULAR HGB CONC 33.2 % (32.0-36.0); MEAN PLATELET VOLUME 8.3 FL (7.0-11.0); MONOCYTE # 0.8 TH/MM3 (0-0.9); NEUT % 82.6 % (16.0-70.0); PLATELET COUNT 178 TH/MM3 (150-450); RED BLOOD COUNT 4.04 MIL/MM3 (4.50-5.90); RED CELL DISTRIBUTION WIDTH 15.7 % (11.6-17.2); WHITE BLOOD COUNT 10.3 TH/MM3 (4.0-11.0)
[2017-04-27 16:57] LABS: BICARBONATE 29.2 MEQ/L (21.0-32.0); CALCIUM 8.8 MG/DL (8.5-10.1); CREATININE 0.89 MG/DL (0.60-1.30)
[2017-04-27 20:00] VITALS: BP 176/85; PULSE 64; RESP 17; TEMP 97.2; O2SAT 96
[2017-04-27] MEDS: RESP: ALBUTEROL 2.5 MG/IPRATROPIUM 0.5 MG NEB (PRN) INH (20:01)
[2017-04-28] MEDS: SODIUM CHLORIDE 0.9% FLUSH 10 ML FLUSH IV FLUSH SCH ×3 (00:18→21:32)
[2017-04-28] MEDS: FAMOTIDINE 20 MG/2 ML VIAL IV PUSH SCH ×3 (00:18→21:31)
[2017-04-28] MEDS: BUDESONIDE-FORMOTEROL 160/4.5 MCG INHALER INH SCH ×3 (00:18→21:32)
[2017-04-28] MEDS: OLANZapine 2.5 MG TAB PO SCH ×3 (00:19→21:31)
[2017-04-28 00:35] VITALS: BP 168/79; PULSE 62; RESP 20; TEMP 97.5; O2SAT 94
[2017-04-28] MEDS: SODIUM CHLOR 0.9% 1000 ML INJ 1,000 ML IV SCH ×2 (03:17→17:46)
[2017-04-28] MEDS: methylPREDNISolone SOD SUCC 40 MG/1 ML VIAL IV PUSH SCH ×2 (03:17→13:10)
[2017-04-28] MEDS: CHLORHEXIDINE GLUCONATE 2 % 1 PACK (2 CLOTHS) TOP SCH (03:17)
[2017-04-28 08:00] VITALS: BP 168/80; PULSE 68; RESP 20; TEMP 97.4; O2SAT 94
[2017-04-28] MEDS: CHLORHEXIDINE 0.12% (ORAL KIT) 15 ML CUP MT SCH ×2 (08:00→20:00)
[2017-04-28] MEDS: LEVOFLOXACIN 500 MG PREMIX INJ 100 ML IV SCH (10:51)
[2017-04-28] MEDS: SERTRALINE HCL 100 MG TAB PO SCH (10:53)
[2017-04-28] MEDS: FOLIC ACID 1 MG TAB PO SCH (10:53)
[2017-04-28 12:00] VITALS: BP 178/84; PULSE 71; RESP 20; TEMP 97.2; O2SAT 90
[2017-04-28] MEDS ORDERED: POTASSIUM CHLORIDE 20 MEQ CONTROLLED RELEASE TAB PO ONE (12:30)
[2017-04-28] MEDS ORDERED: cloNIDine HCL 0.1 MG TAB PO PRN (12:30)
--- NOTE | 2017-04-28 12:41 | HHI.PR ---
Subjective Remarks Patient is a76 year old male with past medical history significant for small cell lung cancer diagnosed in 2014 status post chemoradiation and prophylactic radiation to the brain, COPD, hypertension, anxiety, cognitive impairment who is about 2 weeks ago placed in [facility] due to weakness. Patient was discharged home last Sunday became increasingly weak with altered mentation. Due to fever and worsening mental status EMS was called and brought the patient to the emergency department here at [place]. In the ED patient was hypoxemic and was placed on a nonrebreather. Temperature is 102.3, 13.5 WBC with 86% neutrophils. X-ray demonstrates left lower lobe pneumonia. Because of sepsis and hypoxia after ICU admission requested. Flu test negative. Received wound care and cefepime in the ED I evaluated the patient in the ED. He appears critically ill, and very weak. Chest exam revealed coarse breath sounds and crackles. I have started vancomycin and Zosyn. Also azithromycin for atypical coverage. IV Solu-Medrol and scheduled and when necessary breathing treatments for probable COPD exacerbation. CT of the head and chest requested 04/24: Lying in bed no acute distress. More awake alert. K 2.8 getting replaced. FiO2 has been weaned to NC SEEN BY DR DUGAN OF ONCOLOGY- CANCER IN REMISSION 04-25 in no acute distress. afebrile. on oxygen via N/C. 04-26 in no acute distress. however on oxygen via N/C. afebrile. had some diarrhea over night. agitated over night and received a dose of haldol earlier. d/w the RN. - in no acute distress. but not cooperative with the exam. agitated over night and received a dose of Zyprexa last night. afebrile. d/w the RN. - cooperative with exam NOT AGITATED ANSWERED QUESTIONS APPROPRIATELY DW RN AND PATIENT DOES NOT MEET INPATIENT PSYCHIATRY REQUIREMENTS Objective Vitals Vital Signs Date Time Temp Pulse Resp B/P (MAP) Pulse Ox O2 Delivery O2 Flow Rate FiO2 04/28/17 08:00 97.4 68 20 168/80 (109) 94 04/28/17 00:35 97.5 62 20 168/79 (108) 94 04/27/17 20:00 Nasal Cannula 3.00 04/27/17 20:00 97.2 64 17 176/85 (115) 96 04/27/17 16:10 98.0 73 18 186/88 (120) 100 I/O 04/27/17 04/27/17 04/27/17 04/28/17 04/28/17 04/28/17 07:00 15:00 23:00 07:00 15:00 23:00 Intake Total 417 ml 120 ml 0 ml Output Total 500 ml Balance 417 ml 120 ml -500 ml Intake Oral 120 ml 0 ml IV Total 417 ml Output Urine Total 500 ml # Voids 3 3 # Bowel Movements 2 0 0 Result Diagram: 04/27/17 1530 04/27/17 1530 Other Results Laboratory Tests Test 04/25/17 17:08 04/27/17 15:30 Vancomycin Level Trough 22.7 MCG/ML White Blood Count 10.3 TH/MM3 Red Blood Count 4.04 MIL/MM3 Hemoglobin 11.2 GM/DL Hematocrit 33.8 % Mean Corpuscular Volume 83.7 FL Mean Corpuscular Hemoglobin 27.7 PG Mean Corpuscular Hemoglobin Concent 33.2 % Red Cell Distribution Width 15.7 % Platelet Count 178 TH/MM3 Mean Platelet Volume 8.3 FL Neutrophils (%) (Auto) 82.6 % Lymphocytes (%) (Auto) 8.8 % Monocytes (%) (Auto) 8.0 % Eosinophils (%) (Auto) 0.4 % Basophils (%) (Auto) 0.2 % Neutrophils # (Auto) 8.5 TH/MM3 Lymphocytes # (Auto) 0.9 TH/MM3 Monocytes # (Auto) 0.8 TH/MM3 Eosinophils # (Auto) 0.0 TH/MM3 Basophils # (Auto) 0.0 TH/MM3 CBC Comment DIFF FINAL Differential Comment Blood Urea Nitrogen 27 MG/DL Creatinine 0.89 MG/DL Random Glucose 91 MG/DL Calcium Level 8.8 MG/DL Sodium Level 147 MEQ/L Potassium Level 3.2 MEQ/L Chloride Level 112 MEQ/L Carbon Dioxide Level 29.2 MEQ/L Anion Gap 6 MEQ/L Estimat Glomerular Filtration Rate 83 ML/MIN Imaging Last Impressions Chest X-Ray 04/23/17 1051 Signed Impressions: Service Date/Time: Sunday, April 23, 2017 11:15 - CONCLUSION: Left lower lobe infiltrate. Maninder Bergman Jr., MD Head CT 04/23/17 0000 Signed Impressions: Service Date/Time: Sunday, April 23, 2017 13:39 - CONCLUSION: 1. No acute intracranial abnormality. 2. Extensive chronic small vessel ischemic change. Maninder Bergman Jr., MD Chest CT 04/23/17 0000 Signed Impressions: Service Date/Time: Sunday, April 23, 2017 13:43 - CONCLUSION: 1. Left lower lobe infiltrate with small areas of infiltrate involving the left perihilar distribution of the lingula as well as the left upper lobe. Infectious etiology is suspected. 2. Significant coronary artery atherosclerotic calcifications. Maninder Bergman Jr., MD Objective Remarks GENERAL: Awake alert and oriented talkative and cooperative-oriented 3 pleasant SKIN: Warm and dry. HEAD: Atraumatic. Normocephalic. EYES: Pupils equal and round. No scleral icterus. No injection or drainage. Extraocular muscles intact ENT: No nasal bleeding or discharge. Mucous membranes pink and moist. Tongue is midline NECK: Trachea midline. No JVD. Supple CARDIOVASCULAR: Regular rate and rhythm. S1 and S2 no S3 or S4 RESPIRATORY: No accessory muscle use. Breath sounds equal bilaterally. Coarse breath sounds left side more so than right side GASTROINTESTINAL: Abdomen soft, non-tender, nondistended. Hepatic and splenic margins not palpable. Obese MUSCULOSKELETAL: Extremities without clubbing, cyanosis, or edema. No obvious deformities. NEUROLOGICAL: Awake and alert. No obvious cranial nerve deficits. Motor grossly within normal limits. 4 out of 5 muscle strength in the arms and legs. Normal speech. PSYCHIATRIC: INAppropriate mood and affect; insight and judgment ABnormal. Procedures NONE Medications and IVs Current Medications Acetaminophen (Tylenol Supp) 650 mg ONCE ONCE RECTAL Last administered on 04/23at 10:59; Start 04/23/17 at 11:00; Stop 04/23/17 at 11:01; Status DC Sodium Chloride 1,000 ml @ 999 mls/hr Q1H1M IV Last administered on 04/23/17at 10:59; Start 04/23/17 at 11:00; Stop 04/23/17 at 12:00; Status DC Sodium Chloride 1,000 ml @ 999 mls/hr Q1H1M IV Last administered on 04/23/17at 10:59; Start 04/23/17 at 11:00; Stop 04/23/17 at 12:00; Status DC Vancomycin/Sodium Chloride 200 ml @ 200 mls/hr ONCE ONCE IV ; Start 04/23/17 at 11:00; Stop 04/23/17 at 11:59; Status Cancel Cefepime HCl 2000 mg/Sodium Chloride 100 ml @ 200 mls/hr ONCE ONCE IV Last administered on 04/23/17at 10:59; Start 04/23/17 at 11:00; Stop 04/23/17 at 11:29 ; Status DC Vancomycin HCl 1000 mg/Sodium Chloride 250 ml @ 250 mls/hr ONCE ONCE IV Last administered on 04/23/17at 11:30; Start 04/23/17 at 11:15; Stop 04/23/17 at 12:14 ; Status DC Sodium Chloride 1,000 ml @ 75 mls/hr [id number] IV Last administered on at 03:17; Start 04/23/17 at 12:23 Sodium Chloride (NS Flush) 2 ml UNSCH PRN IV FLUSH FLUSH AFTER USING IV ACCESS ; Start 04/23/17 at 12:30 Sodium Chloride (NS Flush) 2 ml BID IV FLUSH Last administered on 04/28/17at 09: 00; Start 04/23/17 at 21:00 Acetaminophen (Tylenol) 650 mg Q6H PRN PO PAIN 1-10 AND/OR FEVER >101F; Start 04/23/17 at 12:30 Albuterol/ Ipratropium (Duoneb Neb) 1 ampule Q6HR NEB NEB Last administered on 04/27/17at 15:47; Start 04/23/17 at 16:00; Stop 04/27/17 at 15:59; Status DC Albuterol/ Ipratropium (Duoneb Neb) 1 ampule Q4HR NEB PRN INH SHORTNESS OF BREATH Last administered on 04/27/17at 20:01; Start 04/23/17 at 12:30 Chlorhexidine Gluconate (Peridex 0.12% Liq) 15 ml BID@08,20 MT ; Start 04/23/17 at 20:00 Famotidine (Pepcid Inj) 20 mg Q12HR IV PUSH Last administered on 04/28/17at 10: 53; Start 04/23/17 at 21:00 Enoxaparin Sodium (Lovenox Inj) 40 mg Q24H SQ Last administered on 04/27/17at 16 :10; Start 04/23/17 at 14:00 Miscellaneous Information 1 [id number] XX ; Start 04/23/17 at 12:30 Chlorhexidine Gluconate (Chlorhexidine 2% Cloth) 3 pack Taper DAILY@04 TOP Last administered on 04/24/17at 04:00; Start 04/24/17 at 04:00; Stop 04/20/18 at 03:59 Chlorhexidine Gluconate (Chlorhexidine 2% Cloth) 3 pack UNSCH PRN TOP HYGIENIC CARE; Start 04/23/17 at 12:30 Piperacillin Sod/ Tazobactam Sod 100 ml @ 200 mls/hr Q6H IV Last administered on 04/26/17at 08:06; Start 04/23/17 at 14:00; Stop 04/26/17 at 09:59; Status DC Azithromycin 500 mg/Sodium Chloride 250 ml @ 250 mls/hr Q24H IV Last administered on 04/25/17at 15:00; Start 04/23/17 at 15:00; Stop 04/26/17 at 09:59 ; Status DC Vancomycin/Sodium Chloride 200 ml @ 200 mls/hr ONCE ONCE IV ; Start 04/23/17 at 12:30; Stop 04/23/17 at 12:34; Status DC Pharmacy Profile Note 0 ml @ 0 mls/hr UNSCH OTHER ; Start 04/23/17 at 12:30; Stop 04/26/17 at 09:59; Status DC Atenolol (Tenormin) 100 mg DAILY PO Last administered on 04/27/17at 16:10; Start 04/24/17 at 09:00 Folic Acid (Folate) 0.6 mg DAILY PO Last administered on 04/28/17at 10:53; Start 04/24/17 at 09:00 Sertraline HCl (Zoloft) 100 mg DAILY PO Last administered on 04/28/17at 10:53; Start 04/24/17 at 09:00 Budesonide/ Formoterol Fumarate (Symbicort 160-4.5 Mcg Inh) 1 puff BID INH Last administered on 04/28/17at 10:54; Start 04/23/17 at 21:00 Methylprednisolone Sodium Succinate (SoluMEDROL INJ) 60 mg Q12H IV PUSH Last administered on 04/26/17at 13:58; Start 04/23/17 at 14:00; Stop 04/27/17 at 12:36 ; Status DC Vancomycin HCl 1000 mg/Sodium Chloride 250 ml @ 250 mls/hr ONCE ONCE IV ; Start 04/23/17 at 14:30; Stop 04/23/17 at 15:29; Status DC Vancomycin HCl 2000 mg/Sodium Chloride 520 ml @ 250 mls/hr Q18H IV Last administered on 04/25/17at 17:16; Start 04/24/17 at 06:00; Stop 04/25/17 at 21:21 ; Status DC Miscellaneous Information SPECIFIC LAB TO BE KIRSTY... ONCE ONCE .XX Last administered on 04/25/17at 17:13; Start 04/25/17 at 17:45; Stop 04/25/17 at 17:46 ; Status DC Sodium Chloride 1,000 ml @ 999 mls/hr BOLUS ONCE IV Last administered on 04/23at 18:09; Start 04/23/17 at 17:30; Stop 04/23/17 at 18:30; Status DC Potassium Chloride 100 ml @ 50 mls/hr Q2H PRN IV For Potassium 2.8 - 3.2 mEq/L ; Start 04/24/17 at 10:30; Stop 04/25/17 at 08:12; Status DC Potassium Chloride 100 ml @ 50 mls/hr Q2H PRN IV For Potassium 2.8 - 3.2 mEq/ L Last administered on 04/24/17at 14:01; Start 04/24/17 at 10:30; Stop 04/25/17 at 08:12; Status DC Potassium Bicarb/ Potassium Chloride (K-Lyte Cl Eff) 50 meq UNSCH PRN PO For Potassium 3.3 - 3.5 mEq/L; Start 04/24/17 at 10:30; Stop 04/25/17 at 08:12; Status DC Potassium Chloride 100 ml @ 25 mls/hr UNSCH PRN IV For Potassium 3.3 - 3.5 mEq /L; Start 04/24/17 at 10:30; Stop 04/25/17 at 08:12; Status DC Potassium Chloride 100 ml @ 50 mls/hr Q2H PRN IV For Potassium 3.3 - 3.5 mEq/L ; Start 04/24/17 at 10:30; Stop 04/25/17 at 08:12; Status DC Magnesium Sulfate 4 gm/Sodium Chloride 100 ml @ 50 mls/hr UNSCH PRN IV For Magnesium 0.9 - 1.1 mg/dL; Start 04/24/17 at 10:30; Stop 04/25/17 at 08:12; Status DC Magnesium Oxide (Mag-Ox) 800 mg UNSCH PRN PO For Magnesium 1.2 - 1.6 mg/dL; Start 04/24/17 at 10:30; Stop 04/25/17 at 08:12; Status DC Magnesium Sulfate 2 gm/Sodium Chloride 100 ml @ 50 mls/hr UNSCH PRN IV For Magnesium 1.2 - 1.6 mg/dL; Start 04/24/17 at 10:30; Stop 04/25/17 at 08:12; Status DC Potassium Phosphate (K-Phos) 2,000 mg Q4H PRN PO For Phosphorus < 2.5 mg/dL; Start 04/24/17 at 10:30; Stop 04/25/17 at 08:12; Status DC Sodium Phosphate 30 mmol/Sodium Chloride 250 ml @ 42 mls/hr UNSCH PRN IV For Phosphorus < 2.5 mg/dL; Start 04/24/17 at 10:30; Stop 04/25/17 at 08:12; Status DC Potassium Phosphate (K-Phos) 2,000 mg UNSCH PRN PO/TUBE SEE LABEL COMMENTS; Start 04/24/17 at 10:30; Stop 04/25/17 at 08:12; Status DC Potassium Phosphate 30 mmol/ Sodium Chloride 260 ml @ 42 mls/hr UNSCH PRN IV SEE LABEL COMMENTS; Start 04/24/17 at 10:30; Stop 04/25/17 at 08:12; Status DC Hydralazine HCl (Apresoline Inj) 20 mg Q4H PRN IV SYS BP GREATER THAN 170 MMHG Last administered on 04/26/17at 12:10; Start 04/24/17 at 13:45 Potassium Chloride (KCl) 40 meq NOW ONCE PO Last administered on 04/24/17at 16: 20; Start 04/24/17 at 14:45; Stop 04/24/17 at 14:46; Status DC Amlodipine Besylate (Norvasc) 5 mg DAILY PO Last administered on 04/26/17at 08: 06; Start 04/25/17 at 10:30; Stop 04/26/17 at 10:04; Status DC Potassium Chloride (KCl) 30 meq ONCE ONCE PO Last administered on 04/25/17at 13 :56; Start 04/25/17 at 13:45; Stop 04/25/17 at 13:52; Status DC Vancomycin HCl 1500 mg/Sodium Chloride 515 ml @ 250 mls/hr Q18H IV ; Start at 12:00; Stop 04/26/17 at 12:00; Status DC Miscellaneous Information SPECIFIC LAB TO BE DRAWN:VANCO TROUGH DATE TO BE DR... ONCE ONCE .XX ; Start 04/27/17 at 05:45; Stop 04/27/17 at 05:46; Status Cancel Haloperidol Lactate (Haldol Inj) 2 mg ONCE ONCE IM Last administered on at 00:23; Start 04/26/17 at 00:15; Stop 04/26/17 at 00:16; Status DC Haloperidol Lactate (Haldol Inj) 2 mg Q6H PRN IM AGITATION Last administered on 04/27/17at 01:34; Start 04/26/17 at 08:00; Stop 04/27/17 at 13:29; Status DC Levofloxacin/ Dextrose 100 ml @ 100 mls/hr Q24H IV Last administered on at 10:51; Start 04/26/17 at 11:00 Amlodipine Besylate (Norvasc) 10 mg DAILY PO Last administered on 04/28/17at 10: 54; Start 04/27/17 at 09:00 Olanzapine (ZyPREXA) 2.5 mg Q12HR PO Last administered on 04/28/17at 10:54; Start 04/26/17 at 12:30 Olanzapine (ZyPREXA INJ) 5 mg Q12H PRN IM If agitation Last administered on at 03:17; Start 04/26/17 at 12:30 Nifedipine (Procardia Xl) 30 mg ONCE ONCE PO Last administered on 04/26/17at 17 :42; Start 04/26/17 at 17:45; Stop 04/26/17 at 17:46; Status DC Methylprednisolone Sodium Succinate (SoluMEDROL INJ) 40 mg Q12H IV PUSH Last administered on 04/28/17at 03:17; Start 04/27/17 at 14:00 A/P Problem List: (1) Healthcare-associated pneumonia ICD Code: J18.9 - Pneumonia, unspecified organism (2) Sepsis ICD Code: A41.9 - Sepsis, unspecified organism (3) Acute hypoxemic respiratory failure ICD Code: J96.01 - Acute respiratory failure with hypoxia (4) COPD exacerbation ICD Code: J44.1 - Chronic obstructive pulmonary disease with (acute) exacerbation (5) Weakness ICD Code: R53.1 - Weakness Status: Acute (6) Small cell carcinoma of lung ICD Code: C34.90 - Malignant neoplasm of unspecified part of unspecified bronchus or lung Status: Acute (7) HTN (hypertension) ICD Code: I10 - Essential (primary) hypertension Status: Acute Assessment and Plan Assessment and Plan A/P Metabolic encephalopathy Underlying cognitive impairment not cooperative with the medical care - Acute worsening of his mentation seems to be secondary to pneumonia and sepsis - psych consulted and started on Zyprexa - CT of the head negative for acute findings - PT/OT -COOPERATIVE TODAY 04-28 Acute hypoxemic respiratory failure Left lower lobe pneumonia COPD exacerbation History of small cell lung cancer - Oxygen by NV to keep sat above 90% - continue neb treatment -taper down IV steroids. Continue Advair -continue Levaquin - CT of the chest showed Left sided pneumonia - ADD MUCINEX - INCENTIVE SPIROMETRY History of hypertension; BP not well controlled-partly due to agitation - Lactic acid normal - Continue atenolol and amlodipine-continue to monitor and adjust the regimen as needed. - RESTART HOME MEDS Sepsis Healthcare associated pneumonia in left lower lobe - continue antibiotics - as noted above. WITH LEVAQUIN - blood and sputum cultures negative so far. Negative for influenza diarrhea- check the stool for c-diff. Non-small cell lung cancer - Monitor CBC, CMP - Dr. Dugan consulted- IN REMISSION Hypokalemia- better -replace as needed.-WILL REPLACE PROPH: - Bilateral lower extremity SCDs. Lovenox 40 mg sq qq. IV Famotidine Discharge Planning PENDING IMPROVEMENT Problem Qualifiers (1) Sepsis: Qualified Codes: A41.9 - Sepsis, unspecified organism Jelani Hallman DO Apr 28, 2017 12:41
[2017-04-28] MEDS ORDERED: NON-FORMULARY DRUG (Lisinopril-Hctz 1 TAB) PO SCH (12:45)
[2017-04-28] MEDS: guaiFENesin E.R. 600 MG TAB PO SCH ×2 (13:10→21:31)
[2017-04-28] MEDS: ENOXAPARIN SODIUM 40 MG/0.4 ML SYRINGE SQ SCH (13:10)
[2017-04-28] MEDS: ATENOLOL 100 MG TAB PO SCH (13:10)
[2017-04-28 16:00] VITALS: BP 177/84; PULSE 91; RESP 17; TEMP 97.7; O2SAT 93
[2017-04-28] MEDS: OLANZapine IM 10 MG VIAL IM PRN (17:46)
[2017-04-28] MEDS: GABAPENTIN 300 MG CAP PO SCH (21:31)
[2017-04-28 21:41] VITALS: BP 189/84; PULSE 63; RESP 18; TEMP 97.5; O2SAT 93
[2017-04-29] VITALS (7 sets, daily range): BP systolic 138–196; BP diastolic 65–93; PULSE 59–70; RESP 17–20; TEMP 97.1–98.2; O2SAT 91–96
[2017-04-29] MEDS: SODIUM CHLOR 0.9% 1000 ML INJ 1,000 ML IV SCH (00:48)
[2017-04-29] MEDS: methylPREDNISolone SOD SUCC 40 MG/1 ML VIAL IV PUSH SCH (00:49)
[2017-04-29] MEDS: hydrALAZINE HCL 20 MG/ML VIAL IV PRN ×2 (00:55→07:01)
[2017-04-29] MEDS: SODIUM CHLORIDE 0.9% FLUSH 10 ML FLUSH IV FLUSH PRN ×2 (00:56→07:03)
[2017-04-29] MEDS: CHLORHEXIDINE GLUCONATE 2 % 1 PACK (2 CLOTHS) TOP SCH (04:00)
[2017-04-29 07:34] LABS: AUTOMATED NEUTROPHIL # 6.7 TH/MM3 (1.8-7.7); BASOPHIL % 0.2 % (0.0-2.0); EOSINOPHIL % 0.1 % (0.0-4.0); HEMATOCRIT 33.7 % (39.0-51.0); HEMOGLOBIN 11.2 GM/DL (13.0-17.0); LYMPH % 7.2 % (9.0-44.0); LYMPHOCYTE # 0.5 TH/MM3 (1.0-4.8); MEAN CELL VOLUME 84.1 FL (80.0-100.0); MEAN CORPUSCULAR HEMOGLOBIN 27.9 PG (27.0-34.0); MEAN CORPUSCULAR HGB CONC 33.1 % (32.0-36.0); MEAN PLATELET VOLUME 8.3 FL (7.0-11.0); MONO % 3.7 % (0.0-8.0); MONOCYTE # 0.3 TH/MM3 (0-0.9); NEUT % 88.8 % (16.0-70.0); PLATELET COUNT 159 TH/MM3 (150-450); WHITE BLOOD COUNT 7.5 TH/MM3 (4.0-11.0)
[2017-04-29] MEDS: CHLORHEXIDINE 0.12% (ORAL KIT) 15 ML CUP MT SCH ×2 (08:00→20:00)
[2017-04-29] MEDS: ATENOLOL 100 MG TAB PO SCH (09:00)
[2017-04-29] MEDS: SODIUM CHLORIDE 0.9% FLUSH 10 ML FLUSH IV FLUSH SCH ×2 (09:00→20:43)
--- NOTE | 2017-04-29 09:34 | HHI.PR ---
Subjective Remarks Patient is a76 year old male with past medical history significant for small cell lung cancer diagnosed in 2014 status post chemoradiation and prophylactic radiation to the brain, COPD, hypertension, anxiety, cognitive impairment who is about 2 weeks ago placed in [facility] due to weakness. Patient was discharged home last Sunday became increasingly weak with altered mentation. Due to fever and worsening mental status EMS was called and brought the patient to the emergency department here at [place]. In the ED patient was hypoxemic and was placed on a nonrebreather. Temperature is 102.3, 13.5 WBC with 86% neutrophils. X-ray demonstrates left lower lobe pneumonia. Because of sepsis and hypoxia after ICU admission requested. Flu test negative. Received wound care and cefepime in the ED I evaluated the patient in the ED. He appears critically ill, and very weak. Chest exam revealed coarse breath sounds and crackles. I have started vancomycin and Zosyn. Also azithromycin for atypical coverage. IV Solu-Medrol and scheduled and when necessary breathing treatments for probable COPD exacerbation. CT of the head and chest requested 04/24: Lying in bed no acute distress. More awake alert. K 2.8 getting replaced. FiO2 has been weaned to NC SEEN BY DR DUGAN OF ONCOLOGY- CANCER IN REMISSION 04-25 in no acute distress. afebrile. on oxygen via N/C. - in no acute distress. however on oxygen via N/C. afebrile. had some diarrhea over night. agitated over night and received a dose of haldol earlier. d/w the RN. 04-27 in no acute distress. but not cooperative with the exam. agitated over night and received a dose of Zyprexa last night. afebrile. d/w the RN. 04-28 cooperative with exam NOT AGITATED ANSWERED QUESTIONS APPROPRIATELY DW RN AND PATIENT DOES NOT MEET INPATIENT PSYCHIATRY REQUIREMENTS 04-29 STATES HE BREATHING A LITTLE BETTER STATES HE IS ON OXYGEN AT HOME AT 3L BY NC CONTINUOUSLY INCREASE ACTIVITY MAY NEED TO GO BACK TO SNF IF CM CAN ARRANGE IT Objective Vitals Vital Signs Date Time Temp Pulse Resp B/P (MAP) Pulse Ox O2 Delivery O2 Flow Rate FiO2 04/29/17 09:24 97.1 61 20 155/66 (95) 93 04/29/17 04:00 97.2 63 17 196/93 (127) 94 04/29/17 00:00 98.2 59 18 180/72 (108) 93 04/28/17 21:41 97.5 63 18 189/84 (119) 93 04/28/17 21:21 Nasal Cannula 3.00 04/28/17 16:00 97.7 91 17 177/84 (115) 93 04/28/17 15:55 Nasal Cannula 3.00 100 04/28/17 12:00 97.2 71 20 178/84 (115) 90 I/O 04/28/17 04/28/17 04/28/17 04/29/17 04/29/17 04/29/17 07:00 15:00 23:00 07:00 15:00 23:00 Intake Total 0 ml 720 ml 480 ml Output Total 500 ml Balance -500 ml 720 ml 480 ml Intake Oral 0 ml 720 ml 480 ml Output Urine Total 500 ml # Voids 7 2 # Bowel Movements 0 5 Result Diagram: 04/29/17 0700 04/27/17 1530 Other Results Laboratory Tests Test 04/27/17 15:30 04/29/17 07:00 White Blood Count 10.3 TH/MM3 7.5 TH/MM3 Red Blood Count 4.04 MIL/MM3 4.00 MIL/MM3 Hemoglobin 11.2 GM/DL 11.2 GM/DL Hematocrit 33.8 % 33.7 % Mean Corpuscular Volume 83.7 FL 84.1 FL Mean Corpuscular Hemoglobin 27.7 PG 27.9 PG Mean Corpuscular Hemoglobin Concent 33.2 % 33.1 % Red Cell Distribution Width 15.7 % 16.0 % Platelet Count 178 TH/MM3 159 TH/MM3 Mean Platelet Volume 8.3 FL 8.3 FL Neutrophils (%) (Auto) 82.6 % 88.8 % Lymphocytes (%) (Auto) 8.8 % 7.2 % Monocytes (%) (Auto) 8.0 % 3.7 % Eosinophils (%) (Auto) 0.4 % 0.1 % Basophils (%) (Auto) 0.2 % 0.2 % Neutrophils # (Auto) 8.5 TH/MM3 6.7 TH/MM3 Lymphocytes # (Auto) 0.9 TH/MM3 0.5 TH/MM3 Monocytes # (Auto) 0.8 TH/MM3 0.3 TH/MM3 Eosinophils # (Auto) 0.0 TH/MM3 0.0 TH/MM3 Basophils # (Auto) 0.0 TH/MM3 0.0 TH/MM3 CBC Comment DIFF FINAL DIFF FINAL Differential Comment Blood Urea Nitrogen 27 MG/DL Creatinine 0.89 MG/DL Random Glucose 91 MG/DL Calcium Level 8.8 MG/DL Sodium Level 147 MEQ/L Potassium Level 3.2 MEQ/L Chloride Level 112 MEQ/L Carbon Dioxide Level 29.2 MEQ/L Anion Gap 6 MEQ/L Estimat Glomerular Filtration Rate 83 ML/MIN Imaging Last Impressions Chest X-Ray 04/23/17 1051 Signed Impressions: Service Date/Time: Sunday, April 23, 2017 11:15 - CONCLUSION: Left lower lobe infiltrate. Maninder Bergman Jr., MD Head CT 04/23/17 0000 Signed Impressions: Service Date/Time: Sunday, April 23, 2017 13:39 - CONCLUSION: 1. No acute intracranial abnormality. 2. Extensive chronic small vessel ischemic change. Maninder Bergman Jr., MD Chest CT 04/23/17 0000 Signed Impressions: Service Date/Time: Sunday, April 23, 2017 13:43 - CONCLUSION: 1. Left lower lobe infiltrate with small areas of infiltrate involving the left perihilar distribution of the lingula as well as the left upper lobe. Infectious etiology is suspected. 2. Significant coronary artery atherosclerotic calcifications. Maninder Bergman Jr., MD Objective Remarks GENERAL: Awake alert and oriented talkative and cooperative-oriented 3 pleasant SKIN: Warm and dry. HEAD: Atraumatic. Normocephalic. EYES: Pupils equal and round. No scleral icterus. No injection or drainage. Extraocular muscles intact ENT: No nasal bleeding or discharge. Mucous membranes pink and moist. Tongue is midline NECK: Trachea midline. No JVD. Supple CARDIOVASCULAR: Regular rate and rhythm. S1 and S2 no S3 or S4 RESPIRATORY: No accessory muscle use. Breath sounds equal bilaterally. Coarse breath sounds left side more so than right side GASTROINTESTINAL: Abdomen soft, non-tender, nondistended. Hepatic and splenic margins not palpable. Obese MUSCULOSKELETAL: Extremities without clubbing, cyanosis, or edema. No obvious deformities. NEUROLOGICAL: Awake and alert. No obvious cranial nerve deficits. Motor grossly within normal limits. 4 out of 5 muscle strength in the arms and legs. Normal speech. PSYCHIATRIC: INAppropriate mood and affect; insight and judgment ABnormal. Procedures NONE Medications and IVs Current Medications Acetaminophen (Tylenol Supp) 650 mg ONCE ONCE RECTAL Last administered on 04/23at 10:59; Start 04/23/17 at 11:00; Stop 04/23/17 at 11:01; Status DC Sodium Chloride 1,000 ml @ 999 mls/hr Q1H1M IV Last administered on 04/23/17at 10:59; Start 04/23/17 at 11:00; Stop 04/23/17 at 12:00; Status DC Sodium Chloride 1,000 ml @ 999 mls/hr Q1H1M IV Last administered on 04/23/17at 10:59; Start 04/23/17 at 11:00; Stop 04/23/17 at 12:00; Status DC Vancomycin/Sodium Chloride 200 ml @ 200 mls/hr ONCE ONCE IV ; Start 04/23/17 at 11:00; Stop 04/23/17 at 11:59; Status Cancel Cefepime HCl 2000 mg/Sodium Chloride 100 ml @ 200 mls/hr ONCE ONCE IV Last administered on 04/23/17at 10:59; Start 04/23/17 at 11:00; Stop 04/23/17 at 11:29 ; Status DC Vancomycin HCl 1000 mg/Sodium Chloride 250 ml @ 250 mls/hr ONCE ONCE IV Last administered on 04/23/17at 11:30; Start 04/23/17 at 11:15; Stop 04/23/17 at 12:14 ; Status DC Sodium Chloride 1,000 ml @ 75 mls/hr [id number] IV Last administered on at 00:48; Start 04/23/17 at 12:23 Sodium Chloride (NS Flush) 2 ml UNSCH PRN IV FLUSH FLUSH AFTER USING IV ACCESS Last administered on 04/29/17at 07:03; Start 04/23/17 at 12:30 Sodium Chloride (NS Flush) 2 ml BID IV FLUSH Last administered on 04/28/17at 21: 32; Start 04/23/17 at 21:00 Acetaminophen (Tylenol) 650 mg Q6H PRN PO PAIN 1-10 AND/OR FEVER >101F; Start 04/23/17 at 12:30 Albuterol/ Ipratropium (Duoneb Neb) 1 ampule Q6HR NEB NEB Last administered on 04/27/17at 15:47; Start 04/23/17 at 16:00; Stop 04/27/17 at 15:59; Status DC Albuterol/ Ipratropium (Duoneb Neb) 1 ampule Q4HR NEB PRN INH SHORTNESS OF BREATH Last administered on 04/27/17at 20:01; Start 04/23/17 at 12:30 Chlorhexidine Gluconate (Peridex 0.12% Liq) 15 ml BID@08,20 MT ; Start 04/23/17 at 20:00 Famotidine (Pepcid Inj) 20 mg Q12HR IV PUSH Last administered on 04/28/17at 21: 31; Start 04/23/17 at 21:00 Enoxaparin Sodium (Lovenox Inj) 40 mg Q24H SQ Last administered on 04/28/17at 13 :10; Start 04/23/17 at 14:00 Miscellaneous Information 1 [id number] XX ; Start 04/23/17 at 12:30 Chlorhexidine Gluconate (Chlorhexidine 2% Cloth) Taper DAILY@04 TOP Last administered on 04/24/17at 04:00; Start 04/24/17 at 04:00; Stop 04/20/18 at 03:59 Chlorhexidine Gluconate (Chlorhexidine 2% Cloth) 3 pack UNSCH PRN TOP HYGIENIC CARE; Start 04/23/17 at 12:30 Piperacillin Sod/ Tazobactam Sod 100 ml @ 200 mls/hr Q6H IV Last administered on 04/26/17at 08:06; Start 04/23/17 at 14:00; Stop 04/26/17 at 09:59; Status DC Azithromycin 500 mg/Sodium Chloride 250 ml @ 250 mls/hr Q24H IV Last administered on 04/25/17at 15:00; Start 04/23/17 at 15:00; Stop 04/26/17 at 09:59 ; Status DC Vancomycin/Sodium Chloride 200 ml @ 200 mls/hr ONCE ONCE IV ; Start 04/23/17 at 12:30; Stop 04/23/17 at 12:34; Status DC Pharmacy Profile Note 0 ml @ 0 mls/hr UNSCH OTHER ; Start 04/23/17 at 12:30; Stop 04/26/17 at 09:59; Status DC Atenolol (Tenormin) 100 mg DAILY PO Last administered on 04/28/17at 13:10; Start 04/24/17 at 09:00 Folic Acid (Folate) 0.6 mg DAILY PO Last administered on 04/28/17at 10:53; Start 04/24/17 at 09:00 Sertraline HCl (Zoloft) 100 mg DAILY PO Last administered on 04/28/17at 10:53; Start 04/24/17 at 09:00 Budesonide/ Formoterol Fumarate (Symbicort 160-4.5 Mcg Inh) 1 puff BID INH Last administered on 04/28/17at 21:32; Start 04/23/17 at 21:00 Methylprednisolone Sodium Succinate (SoluMEDROL INJ) 60 mg Q12H IV PUSH Last administered on 04/26/17at 13:58; Start 04/23/17 at 14:00; Stop 04/27/17 at 12:36 ; Status DC Vancomycin HCl 1000 mg/Sodium Chloride 250 ml @ 250 mls/hr ONCE ONCE IV ; Start 04/23/17 at 14:30; Stop 04/23/17 at 15:29; Status DC Vancomycin HCl 2000 mg/Sodium Chloride 520 ml @ 250 mls/hr Q18H IV Last administered on 04/25/17at 17:16; Start 04/24/17 at 06:00; Stop 04/25/17 at 21:21 ; Status DC Miscellaneous Information SPECIFIC LAB TO BE KIRSTY... ONCE ONCE .XX Last administered on 04/25/17at 17:13; Start 04/25/17 at 17:45; Stop 04/25/17 at 17:46 ; Status DC Sodium Chloride 1,000 ml @ 999 mls/hr BOLUS ONCE IV Last administered on 04/23at 18:09; Start 04/23/17 at 17:30; Stop 04/23/17 at 18:30; Status DC Potassium Chloride 100 ml @ 50 mls/hr Q2H PRN IV For Potassium 2.8 - 3.2 mEq/L ; Start 04/24/17 at 10:30; Stop 04/25/17 at 08:12; Status DC Potassium Chloride 100 ml @ 50 mls/hr Q2H PRN IV For Potassium 2.8 - 3.2 mEq/ L Last administered on 04/24/17at 14:01; Start 04/24/17 at 10:30; Stop 04/25/17 at 08:12; Status DC Potassium Bicarb/ Potassium Chloride (K-Lyte Cl Eff) 50 meq UNSCH PRN PO For Potassium 3.3 - 3.5 mEq/L; Start 04/24/17 at 10:30; Stop 04/25/17 at 08:12; Status DC Potassium Chloride 100 ml @ 25 mls/hr UNSCH PRN IV For Potassium 3.3 - 3.5 mEq /L; Start 04/24/17 at 10:30; Stop 04/25/17 at 08:12; Status DC Potassium Chloride 100 ml @ 50 mls/hr Q2H PRN IV For Potassium 3.3 - 3.5 mEq/L ; Start 04/24/17 at 10:30; Stop 04/25/17 at 08:12; Status DC Magnesium Sulfate 4 gm/Sodium Chloride 100 ml @ 50 mls/hr UNSCH PRN IV For Magnesium 0.9 - 1.1 mg/dL; Start 04/24/17 at 10:30; Stop 04/25/17 at 08:12; Status DC Magnesium Oxide (Mag-Ox) 800 mg UNSCH PRN PO For Magnesium 1.2 - 1.6 mg/dL; Start 04/24/17 at 10:30; Stop 04/25/17 at 08:12; Status DC Magnesium Sulfate 2 gm/Sodium Chloride 100 ml @ 50 mls/hr UNSCH PRN IV For Magnesium 1.2 - 1.6 mg/dL; Start 04/24/17 at 10:30; Stop 04/25/17 at 08:12; Status DC Potassium Phosphate (K-Phos) 2,000 mg Q4H PRN PO For Phosphorus < 2.5 mg/dL; Start 04/24/17 at 10:30; Stop 04/25/17 at 08:12; Status DC Sodium Phosphate 30 mmol/Sodium Chloride 250 ml @ 42 mls/hr UNSCH PRN IV For Phosphorus < 2.5 mg/dL; Start 04/24/17 at 10:30; Stop 04/25/17 at 08:12; Status DC Potassium Phosphate (K-Phos) 2,000 mg UNSCH PRN PO/TUBE SEE LABEL COMMENTS; Start 04/24/17 at 10:30; Stop 04/25/17 at 08:12; Status DC Potassium Phosphate 30 mmol/ Sodium Chloride 260 ml @ 42 mls/hr UNSCH PRN IV SEE LABEL COMMENTS; Start 04/24/17 at 10:30; Stop 04/25/17 at 08:12; Status DC Hydralazine HCl (Apresoline Inj) 20 mg Q4H PRN IV SYS BP GREATER THAN 170 MMHG Last administered on 04/29/17at 07:01; Start 04/24/17 at 13:45 Potassium Chloride (KCl) 40 meq NOW ONCE PO Last administered on 04/24/17at 16: 20; Start 04/24/17 at 14:45; Stop 04/24/17 at 14:46; Status DC Amlodipine Besylate (Norvasc) 5 mg DAILY PO Last administered on 04/26/17at 08: 06; Start 04/25/17 at 10:30; Stop 04/26/17 at 10:04; Status DC Potassium Chloride (KCl) 30 meq ONCE ONCE PO Last administered on 04/25/17at 13 :56; Start 04/25/17 at 13:45; Stop 04/25/17 at 13:52; Status DC Vancomycin HCl 1500 mg/Sodium Chloride 515 ml @ 250 mls/hr Q18H IV ; Start at 12:00; Stop 04/26/17 at 12:00; Status DC Miscellaneous Information SPECIFIC LAB TO BE DRAWN:VANCO TROUGH DATE TO BE DR... ONCE ONCE .XX ; Start 04/27/17 at 05:45; Stop 04/27/17 at 05:46; Status Cancel Haloperidol Lactate (Haldol Inj) 2 mg ONCE ONCE IM Last administered on at 00:23; Start 04/26/17 at 00:15; Stop 04/26/17 at 00:16; Status DC Haloperidol Lactate (Haldol Inj) 2 mg Q6H PRN IM AGITATION Last administered on 04/27/17at 01:34; Start 04/26/17 at 08:00; Stop 04/27/17 at 13:29; Status DC Levofloxacin/ Dextrose 100 ml @ 100 mls/hr Q24H IV Last administered on at 10:51; Start 04/26/17 at 11:00 Amlodipine Besylate (Norvasc) 10 mg DAILY PO Last administered on 04/28/17at 10: 54; Start 04/27/17 at 09:00 Olanzapine (ZyPREXA) 2.5 mg Q12HR PO Last administered on 04/28/17at 21:31; Start 04/26/17 at 12:30 Olanzapine (ZyPREXA INJ) 5 mg Q12H PRN IM If agitation Last administered on at 17:46; Start 04/26/17 at 12:30 Nifedipine (Procardia Xl) 30 mg ONCE ONCE PO Last administered on 04/26/17at 17 :42; Start 04/26/17 at 17:45; Stop 04/26/17 at 17:46; Status DC Methylprednisolone Sodium Succinate (SoluMEDROL INJ) 40 mg Q12H IV PUSH Last administered on 04/29/17at 00:49; Start 04/27/17 at 14:00 Guaifenesin (Mucinex Er) 600 mg BID PO Last administered on 04/28/17at 21:31; Start 04/28/17 at 12:30 Potassium Chloride (KCl) 40 meq ONCE ONCE PO Last administered on 04/28/17at 13 :10; Start 04/28/17 at 12:30; Stop 04/28/17 at 12:45; Status DC Clonidine (Catapres) 0.1 mg Q4H PRN PO SBP>160, DBP>90; Start 04/28/17 at 12:30 Gabapentin (Neurontin) 300 mg BID PO Last administered on 04/28/17at 21:31; Start 04/28/17 at 21:00 Multivitamins (Theragran) 1 tab DAILY PO ; Start 04/29/17 at 09:00 Pravastatin Sodium (Pravachol) 20 mg DAILY PO ; Start 04/29/17 at 09:00 Non-Formulary Medication 1 tab DAILY PO ; Start 04/28/17 at 12:45; Status UNV Lisinopril (Prinivil) 20 mg DAILY PO ; Start 04/29/17 at 09:00 Hydrochlorothiazide (Hydrodiuril) 25 mg DAILY PO ; Start 04/29/17 at 09:00 A/P Problem List: (1) Healthcare-associated pneumonia ICD Code: J18.9 - Pneumonia, unspecified organism (2) Sepsis ICD Code: A41.9 - Sepsis, unspecified organism (3) Acute hypoxemic respiratory failure ICD Code: J96.01 - Acute respiratory failure with hypoxia (4) COPD exacerbation ICD Code: J44.1 - Chronic obstructive pulmonary disease with (acute) exacerbation (5) Weakness ICD Code: R53.1 - Weakness Status: Acute (6) Small cell carcinoma of lung ICD Code: C34.90 - Malignant neoplasm of unspecified part of unspecified bronchus or lung Status: Acute (7) HTN (hypertension) ICD Code: I10 - Essential (primary) hypertension Status: Acute Assessment and Plan Assessment and Plan A/P Metabolic encephalopathy Underlying cognitive impairment not cooperative with the medical care - Acute worsening of his mentation seems to be secondary to pneumonia and sepsis - IMPROVED - psych consulted and started on Zyprexa - CT of the head negative for acute findings - PT/OT -COOPERATIVE TODAY 04-28 AND 04-29 Acute hypoxemic respiratory failure Left lower lobe pneumonia COPD exacerbation History of small cell lung cancer - Oxygen by [place] to keep sat above 90% - continue neb treatment -taper down IV steroids. Continue Advair -continue Levaquin - CT of the chest showed Left sided pneumonia - ADD MUCINEX - INCENTIVE SPIROMETRY - SWITCH TO PO STEROIDS History of hypertension; BP not well controlled-partly due to agitation - Lactic acid normal - Continue atenolol and amlodipine-continue to monitor and adjust the regimen as needed. - RESTART HOME MEDS Sepsis Healthcare associated pneumonia in left lower lobe - continue antibiotics - as noted above. WITH LEVAQUIN - blood and sputum cultures negative so far. Negative for influenza diarrhea- check the stool for c-diff. Non-small cell lung cancer - Monitor CBC, CMP - Dr. Dugan consulted- IN REMISSION Hypokalemia- better -replace as needed.-WILL REPLACE AGAIN 04-29 PROPH: - Bilateral lower extremity SCDs. Lovenox 40 mg sq qq. IV Famotidine Discharge Planning PENDING IMPROVEMENT Problem Qualifiers (1) Sepsis: Qualified Codes: A41.9 - Sepsis, unspecified organism Jelani Hallman DO Apr 29, 2017 09:34
[2017-04-29] MEDS: OLANZapine 2.5 MG TAB PO SCH ×2 (09:49→20:43)
[2017-04-29] MEDS: PRAVASTATIN SOD 20 MG TAB PO SCH (09:49)
[2017-04-29] MEDS: LISINOPRIL 20 MG TAB PO SCH (09:49)
[2017-04-29] MEDS: SERTRALINE HCL 100 MG TAB PO SCH (09:49)
[2017-04-29] MEDS: FOLIC ACID 1 MG TAB PO SCH (09:49)
[2017-04-29] MEDS: GABAPENTIN 300 MG CAP PO SCH ×2 (09:49→20:35)
[2017-04-29] MEDS: guaiFENesin E.R. 600 MG TAB PO SCH ×2 (09:49→20:35)
[2017-04-29] MEDS: HYDROCHLOROTHIAZIDE 25 MG TAB PO SCH (09:49)
[2017-04-29] MEDS: MULTIVITAMIN TAB PO SCH (09:49)
[2017-04-29] MEDS: FAMOTIDINE 20 MG/2 ML VIAL IV PUSH SCH ×2 (09:50→20:35)
[2017-04-29] MEDS: BUDESONIDE-FORMOTEROL 160/4.5 MCG INHALER INH SCH ×2 (09:53→20:36)
[2017-04-29] MEDS ORDERED: POTASSIUM CHLORIDE 20 MEQ CONTROLLED RELEASE TAB PO ONE (10:00)
[2017-04-29] MEDS: predniSONE 20 MG TAB PO SCH ×2 (10:17→20:35)
[2017-04-29 11:22] LABS: ALBUMIN 2.8 GM/DL (3.4-5.0); AST (GOT) 28 U/L (15-37); BICARBONATE 28.8 MEQ/L (21.0-32.0); BLOOD UREA NITROGEN 21 MG/DL (7-18); CALCIUM 8.9 MG/DL (8.5-10.1); CHLORIDE 108 MEQ/L (98-107); CREATININE 0.78 MG/DL (0.60-1.30); GLOMERULAR FILTRATION RATE 97 ML/MIN (>89); GLUCOSE,RANDOM 116 MG/DL (74-106); MAGNESIUM 2.2 MG/DL (1.5-2.5); SODIUM (NA) 146 MEQ/L (136-145)
[2017-04-29 11:23] LABS: ALT (GPT) 59 U/L (12-78); PHOSPHORUS 2.9 MG/DL (2.5-4.9)
[2017-04-29 11:32] LABS: ALKALINE PHOSPHATASE 48 U/L (45-117); FREE T4 1.06 NG/DL (0.76-1.46); TOTAL BILIRUBIN ADULT 0.7 MG/DL (0.2-1.0); TOTAL PROTEIN 6.2 GM/DL (6.4-8.2)
[2017-04-29] MEDS: LEVOFLOXACIN 500 MG PREMIX INJ 100 ML IV SCH (12:01)
[2017-04-29] MEDS: ENOXAPARIN SODIUM 40 MG/0.4 ML SYRINGE SQ SCH (14:06)
[2017-04-29] MEDS: OLANZapine IM 10 MG VIAL IM PRN (20:35)
[2017-04-29] MEDS: RESP: ALBUTEROL 2.5 MG/IPRATROPIUM 0.5 MG NEB (PRN) INH (20:58)
[2017-04-30] MEDS: CHLORHEXIDINE GLUCONATE 2 % 1 PACK (2 CLOTHS) TOP SCH (03:31)
[2017-04-30 04:00] VITALS: BP 170/67; PULSE 63; RESP 18; TEMP 98.2; O2SAT 95
[2017-04-30] MEDS: SODIUM CHLOR 0.9% 1000 ML INJ 1,000 ML IV SCH (04:23)
[2017-04-30 07:17] LABS: AUTOMATED NEUTROPHIL # 6.6 TH/MM3 (1.8-7.7); BASOPHIL % 0.1 % (0.0-2.0); EOSINOPHIL % 0.1 % (0.0-4.0); HEMATOCRIT 32.5 % (39.0-51.0); HEMOGLOBIN 10.8 GM/DL (13.0-17.0); LYMPHOCYTE # 0.7 TH/MM3 (1.0-4.8); MEAN CELL VOLUME 84.1 FL (80.0-100.0); MEAN CORPUSCULAR HGB CONC 33.3 % (32.0-36.0); MEAN PLATELET VOLUME 8.5 FL (7.0-11.0); MONO % 4.9 % (0.0-8.0); MONOCYTE # 0.4 TH/MM3 (0-0.9); NEUT % 85.9 % (16.0-70.0); PLATELET COUNT 168 TH/MM3 (150-450); RED BLOOD COUNT 3.87 MIL/MM3 (4.50-5.90); RED CELL DISTRIBUTION WIDTH 16.2 % (11.6-17.2); WHITE BLOOD COUNT 7.6 TH/MM3 (4.0-11.0)
[2017-04-30 07:37] LABS: ALBUMIN 2.7 GM/DL (3.4-5.0); ALT (GPT) 84 U/L (12-78); AST (GOT) 38 U/L (15-37); BICARBONATE 32.5 MEQ/L (21.0-32.0); BLOOD UREA NITROGEN 24 MG/DL (7-18); CALCIUM 8.6 MG/DL (8.5-10.1); CHLORIDE 109 MEQ/L (98-107); CREATININE 0.79 MG/DL (0.60-1.30); GLOMERULAR FILTRATION RATE 95 ML/MIN (>89); GLUCOSE,RANDOM 119 MG/DL (74-106); MAGNESIUM 2.4 MG/DL (1.5-2.5); PHOSPHORUS 3.2 MG/DL (2.5-4.9); SODIUM (NA) 146 MEQ/L (136-145)
[2017-04-30 07:39] LABS: ALKALINE PHOSPHATASE 49 U/L (45-117); TOTAL BILIRUBIN ADULT 0.5 MG/DL (0.2-1.0)
[2017-04-30] MEDS: CHLORHEXIDINE 0.12% (ORAL KIT) 15 ML CUP MT SCH ×2 (08:00→20:00)
[2017-04-30 08:52] VITALS: BP 206/93; PULSE 58; RESP 20; TEMP 97.3; O2SAT 96
[2017-04-30] MEDS: SODIUM CHLORIDE 0.9% FLUSH 10 ML FLUSH IV FLUSH SCH ×2 (09:00→21:00)
[2017-04-30 09:56] VITALS: O2SAT 93
[2017-04-30] MEDS: FAMOTIDINE 20 MG/2 ML VIAL IV PUSH SCH ×2 (10:57→21:00)
[2017-04-30] MEDS: MULTIVITAMIN TAB PO SCH (10:57)
[2017-04-30] MEDS: FOLIC ACID 1 MG TAB PO SCH (10:57)
[2017-04-30] MEDS: BUDESONIDE-FORMOTEROL 160/4.5 MCG INHALER INH SCH ×2 (10:57→21:00)
[2017-04-30] MEDS: guaiFENesin E.R. 600 MG TAB PO SCH ×2 (10:57→21:00)
[2017-04-30] MEDS: HYDROCHLOROTHIAZIDE 25 MG TAB PO SCH (10:58)
[2017-04-30] MEDS: predniSONE 20 MG TAB PO SCH ×2 (10:58→21:00)
[2017-04-30] MEDS: PRAVASTATIN SOD 20 MG TAB PO SCH (10:58)
[2017-04-30] MEDS: ATENOLOL 100 MG TAB PO SCH (10:58)
[2017-04-30] MEDS: GABAPENTIN 300 MG CAP PO SCH ×2 (10:58→21:00)
[2017-04-30] MEDS: SERTRALINE HCL 100 MG TAB PO SCH (10:58)
[2017-04-30] MEDS: LISINOPRIL 20 MG TAB PO SCH (10:58)
[2017-04-30] MEDS: LEVOFLOXACIN 500 MG PREMIX INJ 100 ML IV SCH (10:59)
[2017-04-30] MEDS: OLANZapine 2.5 MG TAB PO SCH ×2 (11:07→21:00)
[2017-04-30 12:41] VITALS: BP 193/86; PULSE 64; RESP 20; TEMP 97.8; O2SAT 97
[2017-04-30] MEDS: SODIUM CHLOR 0.45% 1000 ML INJ 1,000 ML IV SCH (13:44)
[2017-04-30] MEDS: hydrALAZINE HCL 50 MG TAB PO SCH ×2 (13:44→22:00)
[2017-04-30] MEDS: ENOXAPARIN SODIUM 40 MG/0.4 ML SYRINGE SQ SCH (13:45)
[2017-04-30 17:08] VITALS: BP 167/74; PULSE 59; RESP 19; TEMP 97.5; O2SAT 92
[2017-04-30] MEDS: OLANZapine IM 10 MG VIAL IM PRN (17:20)
[2017-04-30 20:00] VITALS: BP 172/89; PULSE 57; RESP 20; TEMP 97.8; O2SAT 94
--- NOTE | 2017-04-30 21:08 | HHI.PR ---
Subjective Remarks 04/30. Patient denies any pain. Agrees to be examined, however says he will refuse to breathe during exam. Discussed with nursing. Objective Vital Signs Date Time Temp Pulse Resp B/P (MAP) Pulse Ox O2 Delivery O2 Flow Rate FiO2 04/30/17 17:08 97.5 59 19 167/74 (105) 92 04/30/17 14:00 Nasal Cannula 3.00 04/30/17 14:00 Nasal Cannula 3.00 04/30/17 12:41 97.8 64 20 193/86 (121) 97 04/30/17 11:00 Nasal Cannula 3.00 04/30/17 09:56 93 Nasal Cannula 3.00 04/30/17 08:52 97.3 58 20 206/93 (130) 96 04/30/17 04:00 98.2 63 18 170/67 (101) 95 04/29/17 21:21 96 Nasal Cannula 3.00 I/O 04/29/17 04/29/17 04/29/17 04/30/17 04/30/17 04/30/17 07:00 15:00 23:00 07:00 15:00 23:00 Intake Total 480 ml 600 ml 480 ml Balance 480 ml 600 ml 480 ml Intake Oral 480 ml 600 ml 480 ml # Voids 2 3 6 # Bowel Movements 1 1 Result Diagram: 04/30/17 0630 04/30/17 0630 Objective Remarks GENERAL: patient sitting up in bed. Appears comfortable. SKIN: Warm and dry. HEAD: Normocephalic. EYES: No scleral icterus. No injection or drainage. NECK: Supple, trachea midline. No JVD. CARDIOVASCULAR: Regular rate and rhythm without murmurs, gallops, or rubs. RESPIRATORY: Breath sounds equal bilaterally. No accessory muscle use. GASTROINTESTINAL: Abdomen soft, non-tender, nondistended. MUSCULOSKELETAL: No cyanosis, or edema. BACK: Nontender without obvious deformity. No CVA tenderness. A/P Assessment and Plan Metabolic encephalopathy Underlying cognitive impairment not cooperative with the medical care - Acute worsening of his mentation seems to be secondary to pneumonia and sepsis - IMPROVED - psych consulted and started on Zyprexa - CT of the head negative for acute findings - PT/OT -uncooperative today 04/30. //hypertension. blood pressure elevated up to 200 today. Added hydralazine scheduled.continue to monitor. //hypernatremia. At one half-normal saline. Continue to monitor. Acute hypoxemic respiratory failure Left lower lobe pneumonia COPD exacerbation History of small cell lung cancer - Oxygen by [place] to keep sat above 90% - continue neb treatment -taper down IV steroids. Continue Advair -continue Levaquin - CT of the chest showed Left sided pneumonia - ADD MUCINEX - INCENTIVE SPIROMETRY - SWITCH TO PO STEROIDS History of hypertension; BP not well controlled-partly due to agitation - Lactic acid normal - Continue atenolol and amlodipine-continue to monitor and adjust the regimen as needed. - RESTART HOME MEDS Sepsis Healthcare associated pneumonia in left lower lobe - continue antibiotics - as noted above. WITH LEVAQUIN - blood and sputum cultures negative so far. Negative for influenza diarrhea- check the stool for c-diff. Non-small cell lung cancer - Monitor CBC, CMP - Dr. Dugan consulted- IN REMISSION Hypokalemia- better -replace as needed.-WILL REPLACE AGAIN 04-29 PROPH: - Bilateral lower extremity SCDs. Lovenox 40 mg sq qq. IV Famotidine Discharge Planning case management assistance appreciated. To SNF when arrangements made. Rakesh Paniagua MD Apr 30, 2017 21:08
[2017-05-01] VITALS: BP 152/66; PULSE 57; RESP 20; TEMP 97.5; O2SAT 95
[2017-05-01] MEDS: SODIUM CHLOR 0.45% 1000 ML INJ 1,000 ML IV SCH ×2 (01:29→11:20)
[2017-05-01] MEDS: CHLORHEXIDINE GLUCONATE 2 % 1 PACK (2 CLOTHS) TOP SCH (01:30)
[2017-05-01 04:00] VITALS: BP 158/82; PULSE 59; RESP 21; TEMP 98; O2SAT 97
[2017-05-01] MEDS: hydrALAZINE HCL 50 MG TAB PO SCH ×2 (06:27→12:59)
[2017-05-01] MEDS: CHLORHEXIDINE 0.12% (ORAL KIT) 15 ML CUP MT SCH ×2 (08:00→20:00)
[2017-05-01] MEDS: SODIUM CHLORIDE 0.9% FLUSH 10 ML FLUSH IV FLUSH SCH ×2 (09:00→21:00)
[2017-05-01] MEDS: FAMOTIDINE 20 MG/2 ML VIAL IV PUSH SCH ×2 (09:00→21:00)
[2017-05-01] MEDS: BUDESONIDE-FORMOTEROL 160/4.5 MCG INHALER INH SCH ×2 (09:00→23:09)
[2017-05-01] MEDS: MULTIVITAMIN TAB PO SCH (09:00)
[2017-05-01 09:21] VITALS: BP 186/74; PULSE 56; RESP 20; TEMP 97.8; O2SAT 94
[2017-05-01] MEDS: GABAPENTIN 300 MG CAP PO SCH ×2 (09:42→23:07)
[2017-05-01] MEDS: predniSONE 20 MG TAB PO SCH (09:42)
[2017-05-01] MEDS: HYDROCHLOROTHIAZIDE 25 MG TAB PO SCH (09:42)
[2017-05-01] MEDS: SERTRALINE HCL 100 MG TAB PO SCH (09:42)
[2017-05-01] MEDS: PRAVASTATIN SOD 20 MG TAB PO SCH (09:42)
[2017-05-01] MEDS: FOLIC ACID 1 MG TAB PO SCH (09:42)
[2017-05-01] MEDS: ATENOLOL 100 MG TAB PO SCH (09:42)
[2017-05-01] MEDS: guaiFENesin E.R. 600 MG TAB PO SCH ×2 (09:43→23:07)
[2017-05-01] MEDS: OLANZapine 2.5 MG TAB PO SCH ×2 (09:43→23:07)
[2017-05-01] MEDS: LISINOPRIL 20 MG TAB PO SCH (09:43)
[2017-05-01 10:00] LABS: AUTOMATED NEUTROPHIL # 6.5 TH/MM3 (1.8-7.7); BASOPHIL % 0.4 % (0.0-2.0); EOSINOPHIL % 0.4 % (0.0-4.0); HEMATOCRIT 40.8 % (39.0-51.0); HEMOGLOBIN 13.5 GM/DL (13.0-17.0); LYMPH % 13.6 % (9.0-44.0); LYMPHOCYTE # 1.1 TH/MM3 (1.0-4.8); MEAN CELL VOLUME 83.6 FL (80.0-100.0); MEAN CORPUSCULAR HEMOGLOBIN 27.7 PG (27.0-34.0); MEAN CORPUSCULAR HGB CONC 33.1 % (32.0-36.0); MEAN PLATELET VOLUME 9.1 FL (7.0-11.0); MONO % 5.8 % (0.0-8.0); MONOCYTE # 0.5 TH/MM3 (0-0.9); NEUT % 79.8 % (16.0-70.0); PLATELET COUNT 167 TH/MM3 (150-450); RED BLOOD COUNT 4.87 MIL/MM3 (4.50-5.90); RED CELL DISTRIBUTION WIDTH 16.3 % (11.6-17.2); WHITE BLOOD COUNT 8.1 TH/MM3 (4.0-11.0)
[2017-05-01 10:04] LABS: ALBUMIN 3.1 GM/DL (3.4-5.0); CALCIUM 9.4 MG/DL (8.5-10.1); CREATININE 0.81 MG/DL (0.60-1.30); MAGNESIUM 2.2 MG/DL (1.5-2.5); PHOSPHORUS 3.2 MG/DL (2.5-4.9)
[2017-05-01 12:22] VITALS: BP 179/79; PULSE 63; RESP 20; TEMP 97.2; O2SAT 93
[2017-05-01] MEDS: ENOXAPARIN SODIUM 40 MG/0.4 ML SYRINGE SQ SCH (13:00)
--- NOTE | 2017-05-01 16:54 | HHI.PR ---
Subjective Remarks Patient seen this morning around noon. Patient eating lunch. Cooperative on exam. Denies any chest pain or shortness of breath. Objective Vital Signs Date Time Temp Pulse Resp B/P (MAP) Pulse Ox O2 Delivery O2 Flow Rate FiO2 05/01/17 12:22 97.2 63 20 179/79 (112) 93 05/01/17 11:08 Nasal Cannula 3.00 05/01/17 09:21 97.8 56 20 186/74 (111) 94 05/01/17 04:00 98.0 59 21 158/82 (107) 97 05/01/17 00:00 97.5 57 20 152/66 (94) 95 04/30/17 20:00 97.8 57 20 172/89 (116) 94 04/30/17 20:00 Nasal Cannula 3.00 04/30/17 17:08 97.5 59 19 167/74 (105) 92 I/O 04/30/17 04/30/17 04/30/17 05/01/17 05/01/17 05/01/17 07:00 15:00 23:00 07:00 15:00 23:00 Intake Total 480 ml 650 ml Balance 480 ml 650 ml Intake Oral 480 ml 650 ml # Voids 6 5 # Bowel Movements 1 1 Result Diagram: 05/01/17 0900 05/01/17 0900 Objective Remarks GENERAL: patient sitting up in bed. Appears comfortable. No change on exam, with the exception of patient more agreeable today SKIN: Warm and dry. HEAD: Normocephalic. EYES: No scleral icterus. No injection or drainage. NECK: Supple, trachea midline. No JVD. CARDIOVASCULAR: Regular rate and rhythm without murmurs, gallops, or rubs. RESPIRATORY: Breath sounds equal bilaterally. No accessory muscle use. GASTROINTESTINAL: Abdomen soft, non-tender, nondistended. MUSCULOSKELETAL: No cyanosis, or edema. BACK: Nontender without obvious deformity. No CVA tenderness. A/P Assessment and Plan //Metabolic encephalopathy //Underlying cognitive impairment //not cooperative with the medical care - Acute worsening of his mentation seems to be secondary to pneumonia and sepsis - IMPROVED - psych consulted and started on Zyprexa - CT of the head negative for acute findings - PT/OT -uncooperative today 04/30. = 05/01. Discussed with nursing. Patient intermittently uncooperative. I have discussed with psychiatrist, who will see the patient. Appreciate assistance. //hypertension. blood pressure elevated up to 200 today. Added hydralazine scheduled.continue to monitor. = 05/01. Systolic blood pressure somewhat improved. In the 180s systolic. We will increase hydralazine today. Continue amlodipine, thiazide, lisinopril. //hypernatremia. = 05/01. Sodium 136 today from 146 yesterday. Discontinue one half-normal saline. Recheck labs tomorrow. //Acute hypoxemic respiratory failure Left lower lobe pneumonia COPD exacerbation History of small cell lung cancer - Oxygen by [place] to keep sat above 90% - continue neb treatment -taper down IV steroids. Continue Advair -continue Levaquin - CT of the chest showed Left sided pneumonia - ADD MUCINEX - INCENTIVE SPIROMETRY - SWITCH TO PO STEROIDS = 05/01. Further tapering of steroids. //Sepsis //Healthcare associated pneumonia in left lower lobe - continue antibiotics - as noted above. WITH LEVAQUIN - blood and sputum cultures negative so far. Negative for influenza = 05/01. Patient is completing course of antibiotics. Antibiotics. //diarrhea- Patient had formed stool and C. difficile was canceled. //Non-small cell lung cancer - Monitor CBC, CMP - Dr. Dugan consulted- IN REMISSION //Hypokalemia- better -Resolved after replacement. //PROPH: - Bilateral lower extremity SCDs. Lovenox 40 mg sq qq. IV Famotidine Discharge Planning case management assistance appreciated. To SNF when arrangements made. Rakesh Paniagua MD May 01, 2017 16:54
[2017-05-01 17:36] VITALS: BP 170/94; PULSE 52; RESP 19; TEMP 97.6; O2SAT 97
[2017-05-01 20:00] VITALS: BP 169/70; PULSE 51; RESP 18; TEMP 97.2; O2SAT 94
[2017-05-01] MEDS ORDERED: predniSONE 10 MG TAB PO SCH (21:00)
[2017-05-01] MEDS: hydrALAZINE HCL 25 MG TAB PO SCH (23:08)
[2017-05-02] VITALS: BP 140/70; PULSE 70; RESP 17; TEMP 98.5; O2SAT 98
[2017-05-02] MEDS: CHLORHEXIDINE GLUCONATE 2 % 1 PACK (2 CLOTHS) TOP SCH (03:48)
[2017-05-02 04:00] VITALS: BP 170/91; PULSE 52; RESP 16; TEMP 97.2; O2SAT 96
[2017-05-02] MEDS: hydrALAZINE HCL 25 MG TAB PO SCH ×3 (06:23→20:31)
[2017-05-02 08:00] VITALS: BP 166/78; PULSE 54; RESP 18; TEMP 97.2; O2SAT 97
[2017-05-02] MEDS: CHLORHEXIDINE 0.12% (ORAL KIT) 15 ML CUP MT SCH ×2 (08:00→20:00)
[2017-05-02 08:33] LABS: ALBUMIN 2.6 GM/DL (3.4-5.0); BICARBONATE 34.9 MEQ/L (21.0-32.0); CALCIUM 8.5 MG/DL (8.5-10.1); CREATININE 0.78 MG/DL (0.60-1.30); PHOSPHORUS 3.2 MG/DL (2.5-4.9)
[2017-05-02] MEDS: SODIUM CHLORIDE 0.9% FLUSH 10 ML FLUSH IV FLUSH SCH ×2 (09:00→20:31)
[2017-05-02] MEDS: FAMOTIDINE 20 MG/2 ML VIAL IV PUSH SCH ×2 (09:00→20:31)
[2017-05-02] MEDS: guaiFENesin E.R. 600 MG TAB PO SCH ×2 (09:35→20:31)
[2017-05-02] MEDS: BUDESONIDE-FORMOTEROL 160/4.5 MCG INHALER INH SCH ×2 (09:35→20:32)
[2017-05-02] MEDS: LISINOPRIL 20 MG TAB PO SCH (09:35)
[2017-05-02] MEDS: SERTRALINE HCL 100 MG TAB PO SCH (09:35)
[2017-05-02] MEDS: GABAPENTIN 300 MG CAP PO SCH ×2 (09:36→20:31)
[2017-05-02] MEDS: FOLIC ACID 1 MG TAB PO SCH (09:36)
[2017-05-02] MEDS: HYDROCHLOROTHIAZIDE 25 MG TAB PO SCH (09:36)
[2017-05-02] MEDS: ATENOLOL 100 MG TAB PO SCH (09:36)
[2017-05-02] MEDS: OLANZapine 2.5 MG TAB PO SCH ×2 (09:36→20:31)
[2017-05-02] MEDS: MULTIVITAMIN TAB PO SCH (09:37)
[2017-05-02] MEDS: PRAVASTATIN SOD 20 MG TAB PO SCH (09:37)
[2017-05-02] MEDS ORDERED: guaiFENesin ER PO (11:37)
[2017-05-02] MEDS ORDERED: Albuterol-Ipratropium Neb INH (11:37)
[2017-05-02] MEDS ORDERED: HYDR-3799 PO (11:37)
[2017-05-02] MEDS ORDERED: Budeson-Formot 160-4.5 Mcg Inh INH (11:37)
[2017-05-02] MEDS ORDERED: OLAN2.5T7 PO (11:37)
--- NOTE | 2017-05-02 11:50 | HHI.PR ---
Subjective Remarks Patient says he is feeling all right today. Denies any chest. Shortness of breath. Denies any pain. Objective Vital Signs Date Time Temp Pulse Resp B/P (MAP) Pulse Ox O2 Delivery O2 Flow Rate FiO2 05/02/17 08:00 97.2 54 18 166/78 (107) 97 05/02/17 04:00 97.2 52 16 170/91 (117) 96 05/02/17 00:00 98.5 70 17 140/70 (93) 98 05/01/17 23:12 Nasal Cannula 3.00 05/01/17 20:00 97.2 51 18 169/70 (103) 94 05/01/17 17:36 97.6 52 19 170/94 (119) 97 05/01/17 12:22 97.2 63 20 179/79 (112) 93 I/O 05/01/17 05/01/17 05/01/17 05/02/17 05/02/17 05/02/17 07:00 15:00 23:00 07:00 15:00 23:00 Intake Total 650 ml 480 ml 240 ml Balance 650 ml 480 ml 240 ml Intake Oral 650 ml 480 ml 240 ml # Voids 5 5 5 # Bowel Movements 1 0 2 Result Diagram: 05/01/17 0900 05/02/17 0752 Objective Remarks GENERAL: patient sitting up in bed. Appears comfortable. Patient agreeable and pleasant today. SKIN: Warm and dry. HEAD: Normocephalic. EYES: No scleral icterus. No injection or drainage. NECK: Supple, trachea midline. No JVD. CARDIOVASCULAR: Regular rate and rhythm without murmurs, gallops, or rubs. RESPIRATORY: Breath sounds equal bilaterally. No accessory muscle use. GASTROINTESTINAL: Abdomen soft, non-tender, nondistended. MUSCULOSKELETAL: No cyanosis, or edema. Stage IV left lateral ankle wound. No surrounding erythema. BACK: Nontender without obvious deformity. No CVA tenderness. A/P Assessment and Plan //Metabolic encephalopathy //Underlying cognitive impairment //not cooperative with the medical care - Acute worsening of his mentation seems to be secondary to pneumonia and sepsis - IMPROVED - psych consulted and started on Zyprexa - CT of the head negative for acute findings - PT/OT -uncooperative today 04/30. = 05/01. Discussed with nursing. Patient intermittently uncooperative. I have discussed with psychiatrist, who will see the patient. Appreciate assistance. = 05/02. Discussed again with nursing. Patient cooperative for over 24 hours. It is likely that the prednisone was exacerbating patient's psychosis. Expect patient to remain agreeable off of prednisone. We'll continue Zyprexa. //hypertension. blood pressure elevated up to 200 today. Added hydralazine scheduled.continue to monitor. = 05/01. Systolic blood pressure somewhat improved. In the 180s systolic. We will increase hydralazine today. Continue amlodipine, thiazide, lisinopril. = 05/02. Blood pressure acceptable. Continue current regimen. Addition of hydralazine. //hypernatremia. = 05/01. Sodium 136 today from 146 yesterday. Discontinue one half-normal saline. Recheck labs tomorrow. = 05/02. Resolved. //Acute hypoxemic respiratory failure Left lower lobe pneumonia COPD exacerbation History of small cell lung cancer - Oxygen by [place] to keep sat above 90% - continue neb treatment -taper down IV steroids. Continue Advair -continue Levaquin - CT of the chest showed Left sided pneumonia - ADD MUCINEX - INCENTIVE SPIROMETRY - SWITCH TO PO STEROIDS = 05/01. Further tapering of steroids. = Appears resolved. Patient on 2 L O2. Continue duo nebs, Symbicort. Follow with pulmonology as outpatient. //Sepsis //Healthcare associated pneumonia in left lower lobe - continue antibiotics - as noted above. WITH LEVAQUIN - blood and sputum cultures negative so far. Negative for influenza = 05/01. Patient is completing course of antibiotics. Antibiotics. = 05/02. Patient completed course of antibiotics. We'll need repeat chest x- ray in one week as outpatient. //diarrhea- Patient had formed stool and C. difficile was canceled. //Non-small cell lung cancer - Monitor CBC, CMP - Dr. Dugan consulted- IN REMISSION = Follow-up with oncology as scheduled as outpatient. //Hypokalemia- better -Resolved after replacement. //PROPH: - Bilateral lower extremity SCDs. Lovenox 40 mg sq qq. IV Famotidine Discharge Planning Discharge to SNF. Rakesh Paniagua MD May 02, 2017 11:50
--- NOTE | 2017-05-02 11:52 | HHI.DS ---
Discharge Summary Admission Date Apr 23, 2017 at 12:28 Discharge Date: May 02, 2017 Admitting Diagnosis pneumonia (1) Healthcare-associated pneumonia ICD Code: J18.9 - Pneumonia, unspecified organism Diagnosis: Principal (2) Sepsis ICD Code: A41.9 - Sepsis, unspecified organism Diagnosis: Principal (3) Acute hypoxemic respiratory failure ICD Code: J96.01 - Acute respiratory failure with hypoxia Diagnosis: Principal (4) COPD exacerbation ICD Code: J44.1 - Chronic obstructive pulmonary disease with (acute) exacerbation Diagnosis: Principal (5) Weakness ICD Code: R53.1 - Weakness Diagnosis: Principal Status: Acute (6) Small cell carcinoma of lung ICD Code: C34.90 - Malignant neoplasm of unspecified part of unspecified bronchus or lung Diagnosis: Secondary Status: Acute (7) HTN (hypertension) ICD Code: I10 - Essential (primary) hypertension Diagnosis: Secondary Status: Acute Procedures NONE Brief History - From Admission Patient is a76 year old male with past medical history significant for small cell lung cancer diagnosed in 2014 status post chemoradiation and prophylactic radiation to the brain, COPD, hypertension, anxiety, cognitive impairment who is about 2 weeks ago placed in [facility] due to weakness. Patient was discharged home last Sunday became increasingly weak with altered mentation. Due to fever and worsening mental status EMS was called and brought the patient to the emergency department here at [place]. In the ED patient was hypoxemic and was placed on a nonrebreather. Temperature is 102.3, 13.5 WBC with 86% neutrophils. X-ray demonstrates left lower lobe pneumonia. Because of sepsis and hypoxia after ICU admission requested. Flu test negative. Received wound care and cefepime in the ED I evaluated the patient in the ED. He appears critically ill, and very weak. Chest exam revealed coarse breath sounds and crackles. I have started vancomycin and Zosyn. Also azithromycin for atypical coverage. IV Solu-Medrol and scheduled and when necessary breathing treatments for probable COPD exacerbation. CT of the head and chest requested CBC/BMP: 05/01/17 0900 05/02/17 0752 Significant Findings Laboratory Tests Test 04/30/17 06:30 05/01/17 09:00 05/02/17 07:52 Red Blood Count 3.87 MIL/MM3 (4.50-5.90) Hemoglobin 10.8 GM/DL (13.0-17.0) Hematocrit 32.5 % (39.0-51.0) Neutrophils (%) (Auto) 85.9 % (16.0-70.0) 79.8 % (16.0-70.0) Lymphocytes # (Auto) 0.7 TH/MM3 (1.0-4.8) Blood Urea Nitrogen 24 MG/DL (7-18) 19 MG/DL (7-18) 20 MG/DL (7-18) Random Glucose 119 MG/DL (74-106) 121 MG/DL (74-106) Total Protein 6.0 GM/DL (6.4-8.2) Albumin 2.7 GM/DL (3.4-5.0) 3.1 GM/DL (3.4-5.0) 2.6 GM/DL (3.4-5.0) Aspartate Amino Transf (AST/SGOT) 38 U/L (15-37) Alanine Aminotransferase (ALT/SGPT) 84 U/L (12-78) Sodium Level 146 MEQ/L (136-145) Chloride Level 109 MEQ/L (98-107) Carbon Dioxide Level 32.5 MEQ/L (21.0-32.0) 34.9 MEQ/L (21.0-32.0) Anion Gap 4 MEQ/L (5-15) Imaging Last Impressions Chest X-Ray 04/23/17 1051 Signed Impressions: Service Date/Time: Sunday, April 23, 2017 11:15 - CONCLUSION: Left lower lobe infiltrate. Maninder Bergman Jr., MD Head CT 04/23/17 0000 Signed Impressions: Service Date/Time: Sunday, April 23, 2017 13:39 - CONCLUSION: 1. No acute intracranial abnormality. 2. Extensive chronic small vessel ischemic change. Maninder Bergman Jr., MD Chest CT 04/23/17 0000 Signed Impressions: Service Date/Time: Sunday, April 23, 2017 13:43 - CONCLUSION: 1. Left lower lobe infiltrate with small areas of infiltrate involving the left perihilar distribution of the lingula as well as the left upper lobe. Infectious etiology is suspected. 2. Significant coronary artery atherosclerotic calcifications. Maninder Bergman Jr., MD PE at Discharge GENERAL: Awake alert and oriented talkative and cooperative-oriented 3 pleasant SKIN: Warm and dry. HEAD: Atraumatic. Normocephalic. EYES: Pupils equal and round. No scleral icterus. No injection or drainage. Extraocular muscles intact ENT: No nasal bleeding or discharge. Mucous membranes pink and moist. Tongue is midline NECK: Trachea midline. No JVD. Supple CARDIOVASCULAR: Regular rate and rhythm. S1 and S2 no S3 or S4 RESPIRATORY: No accessory muscle use. Breath sounds equal bilaterally. Coarse breath sounds left side more so than right side GASTROINTESTINAL: Abdomen soft, non-tender, nondistended. Hepatic and splenic margins not palpable. Obese MUSCULOSKELETAL: Extremities without clubbing, cyanosis, or edema. No obvious deformities. NEUROLOGICAL: Awake and alert. No obvious cranial nerve deficits. Motor grossly within normal limits. 4 out of 5 muscle strength in the arms and legs. Normal speech. PSYCHIATRIC: INAppropriate mood and affect; insight and judgment ABnormal. Hospital Course Patient presented with sepsis, fever, leukocytosis of 13. CT chest showed left lower lobe infiltrate, suspected pneumonia. Patient improved on broad-spectrum antibiotics, duo nebs, steroids. Unfortunately, patient became uncooperative with medical care, and psychiatry was consulted. CT brain with chronic small vessel ischemic change. Agitation improved with addition of Zyprexa as per psychiatry, although patient continued intermittently uncooperative. As steroids tapered off, no further episodes of agitation and patient continues cooperative. Patient will continue on DuoNeb's, Symbicort. He will need a follow-up with pulmonology. Blood pressure was also found to be elevated in the 180s systolic. Hydralazine was added to medication regimen with improvement. 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 Wound care nursing was consulted, please see wound care recommendations. Recommend patient follow up with wound care clinic as outpatient. For problem-based summary from most recent progress note, please see below //Metabolic encephalopathy //Underlying cognitive impairment //not cooperative with the medical care - Acute worsening of his mentation seems to be secondary to pneumonia and sepsis - IMPROVED - psych consulted and started on Zyprexa - CT of the head negative for acute findings - PT/OT -uncooperative today 04/30. = 05/01. Discussed with nursing. Patient intermittently uncooperative. I have discussed with psychiatrist, who will see the patient. Appreciate assistance. = 05/02. Discussed again with nursing. Patient cooperative for over 24 hours. It is likely that the prednisone was exacerbating patient's psychosis. Expect patient to remain agreeable off of prednisone. We'll continue Zyprexa. //hypertension. blood pressure elevated up to 200 today. Added hydralazine scheduled.continue to monitor. = 05/01. Systolic blood pressure somewhat improved. In the 180s systolic. We will increase hydralazine today. Continue amlodipine, thiazide, lisinopril. = 05/02. Blood pressure acceptable. Continue current regimen. Addition of hydralazine. //hypernatremia. = 05/01. Sodium 136 today from 146 yesterday. Discontinue one half-normal saline. Recheck labs tomorrow. = 05/02. Resolved. //Acute hypoxemic respiratory failure Left lower lobe pneumonia COPD exacerbation History of small cell lung cancer - Oxygen by [place] to keep sat above 90% - continue neb treatment -taper down IV steroids. Continue Advair -continue Levaquin - CT of the chest showed Left sided pneumonia - ADD MUCINEX - INCENTIVE SPIROMETRY - SWITCH TO PO STEROIDS = 05/01. Further tapering of steroids. = Appears resolved. Patient on 2 L O2. Continue duo nebs, Symbicort. Follow with pulmonology as outpatient. //Sepsis //Healthcare associated pneumonia in left lower lobe - continue antibiotics - as noted above. WITH LEVAQUIN - blood and sputum cultures negative so far. Negative for influenza = 05/01. Patient is completing course of antibiotics. Antibiotics. = 05/02. Patient completed course of antibiotics. We'll need repeat chest x- ray in one week as outpatient. //diarrhea- Patient had formed stool and C. difficile was canceled. //Non-small cell lung cancer - Monitor CBC, CMP - Dr. Dugan consulted- IN REMISSION = Follow-up with oncology as scheduled as outpatient. //Hypokalemia- better -Resolved after replacement. //PROPH: - Bilateral lower extremity SCDs. Lovenox 40 mg sq qq. IV Famotidine Discharge Planning case management assistance appreciated. To SNF when arrangements made. Pt Condition on Discharge: Good Discharge Disposition: Discharge to SNF Discharge Time: > 30 minutes Discharge Instructions DIET: Follow Instructions for: Heart Healthy Diet Speech Therapy-Diet Recommends: Regular Activities you can perform: Regular-No Restrictions Follow up Referrals: Oncology - 3 Weeks Psychiatry Adult - 1 Week Pulmonology - 1 Week Wound Care Clinic - 1 Week New Medications: Hydralazine HCl (Hydralazine HCl) 25 Mg Tablet 75 MG PO Q8HR for Blood Pressure Management for 30 Days, TAB Olanzapine (Olanzapine) 2.5 Mg Tab 2.5 MG PO Q12HR for Agitation for 30 Days, TAB [Albuterol-Ipratropium Neb] () 1 AMPULE NEBU 1 AMPULE INH Q4HR NEB PRN for SHORTNESS OF BREATH for 30 Days [Budeson-Formot 160-4.5 Mcg Inh] () 60 PUFF AERO 1 PUFF INH BID for COPD for 30 Days [guaiFENesin ER] () 600 MG TABCR 600 MG PO BID for congestion for 7 Days Continued Medications: Amlodipine (Amlodipine) 10 Mg Tab 10 MG PO DAILY for Blood Pressure Management, #30 TAB 0 Refills Atenolol (Atenolol) 100 Mg Tab 100 MG PO DAILY for Blood Pressure Management, #30 TAB 0 Refills Calcium Carbonate-Cholecalciferol (Calcium 500 +D) 500-400 Mg-Unit Tab 1 TAB PO DAILY for Calcium Supplement, TAB 0 Refills Folic Acid (Folic Acid) 0.4 Mg Tab 600 MCG PO DAILY for Nutritional Supplement, TAB 0 Refills Gabapentin (Gabapentin) 300 Mg Cap 300 MG PO BID, #60 CAP 0 Refills Lisinopril-Hctz (Lisinopril-Hctz) 20-25 Mg Tab 1 TAB PO DAILY for Blood Pressure Management, #30 TAB 0 Refills Multiple Vitamin (One Daily) 1 Tab 1 TAB PO DAILY for Nutritional Supplement, TAB 0 Refills Potassium Chloride ER (Klor-Con 10) 10 Meq Tab 10 MEQ PO TID for Electrolyte Replacement, #60 TAB 0 Refills Pravastatin (Pravastatin) 20 Mg Tab 20 MG PO DAILY for Cholesterol Management, #30 TAB 0 Refills Sertraline (Sertraline) 100 Mg Tab 100 MG PO DAILY, #30 TAB 0 Refills Discontinued Medications: Fluticasone-Salmeterol Inh (Advair Diskus Inh) 250-50 Mcg/Blist Aer 1 PUFF INH BID, #1 INHALER 0 Refills Rinse mouth after use. Tizanidine (Tizanidine) 4 Mg Tab 4 MG PO TID PRN for MUSCLE SPASM, TAB 0 Refills Rakesh Paniagua MD May 02, 2017 11:52
[2017-05-02 12:10] VITALS: BP 162/72; PULSE 55; RESP 18; TEMP 97.7; O2SAT 95
[2017-05-02] MEDS: ENOXAPARIN SODIUM 40 MG/0.4 ML SYRINGE SQ SCH (13:14)
[2017-05-02 16:15] VITALS: BP 126/62; PULSE 57; RESP 18; TEMP 98.1; O2SAT 91
[2017-05-02 19:58] VITALS: BP 147/70; PULSE 56; RESP 18; TEMP 97.2; O2SAT 92
[2017-05-03] VITALS: BP 139/63; PULSE 55; RESP 18; TEMP 98.1; O2SAT 94
[2017-05-03 04:00] VITALS: BP 136/61; PULSE 50; RESP 18; TEMP 99.6; O2SAT 92
[2017-05-03] MEDS: CHLORHEXIDINE GLUCONATE 2 % 1 PACK (2 CLOTHS) TOP SCH (04:00)
[2017-05-03] MEDS: hydrALAZINE HCL 25 MG TAB PO SCH (06:05)
[2017-05-03] MEDS: CHLORHEXIDINE 0.12% (ORAL KIT) 15 ML CUP MT SCH (07:29)
[2017-05-03 08:00] VITALS: BP 159/70; PULSE 92; RESP 18; TEMP 98.3; O2SAT 98
[2017-05-03] MEDS: FAMOTIDINE 20 MG/2 ML VIAL IV PUSH SCH (09:00)
[2017-05-03] MEDS: SODIUM CHLORIDE 0.9% FLUSH 10 ML FLUSH IV FLUSH SCH (09:00)
[2017-05-03] MEDS: BUDESONIDE-FORMOTEROL 160/4.5 MCG INHALER INH SCH (10:21)
[2017-05-03] MEDS: GABAPENTIN 300 MG CAP PO SCH (10:23)
[2017-05-03] MEDS: LISINOPRIL 20 MG TAB PO SCH (10:23)
[2017-05-03] MEDS: guaiFENesin E.R. 600 MG TAB PO SCH (10:23)
[2017-05-03] MEDS: FOLIC ACID 1 MG TAB PO SCH (10:23)
[2017-05-03] MEDS: SERTRALINE HCL 100 MG TAB PO SCH (10:23)
[2017-05-03] MEDS: OLANZapine 2.5 MG TAB PO SCH (10:24)
[2017-05-03] MEDS: ATENOLOL 100 MG TAB PO SCH (10:24)
[2017-05-03] MEDS: PRAVASTATIN SOD 20 MG TAB PO SCH (10:24)
[2017-05-03] MEDS: MULTIVITAMIN TAB PO SCH (10:24)
[2017-05-03 11:55] VITALS: BP 147/67; PULSE 59; RESP 18; TEMP 98; O2SAT 90
[2017-05-03] MEDS: HYDROCHLOROTHIAZIDE 25 MG TAB PO SCH (12:02)
--- NOTE | 2017-05-03 15:44 | HHI.PR ---
Subjective Remarks Patient seen this morning prior to discharge. Says he is feeling all right. Denies any chest pain or shortness of breath. Denies any nausea or vomiting. No acute events per nursing. Objective Vital Signs Date Time Temp Pulse Resp B/P (MAP) Pulse Ox O2 Delivery O2 Flow Rate FiO2 05/03/17 12:07 Nasal Cannula 3.00 05/03/17 11:55 98.0 59 18 147/67 (93) 90 05/03/17 08:00 98.3 92 18 159/70 (99) 98 05/03/17 08:00 Nasal Cannula 3.00 05/03/17 04:00 99.6 50 18 136/61 (86) 92 05/03/17 00:00 98.1 55 18 139/63 (88) 94 05/02/17 20:33 Nasal Cannula 3.00 05/02/17 19:58 97.2 56 18 147/70 (95) 92 05/02/17 16:15 98.1 57 18 126/62 (83) 91 I/O 05/02/17 05/02/17 05/02/17 05/03/17 05/03/17 05/03/17 07:00 15:00 23:00 07:00 15:00 23:00 Intake Total 240 ml 240 ml 240 ml Balance 240 ml 240 ml 240 ml Intake Oral 240 ml 240 ml 240 ml # Voids 5 2 4 # Bowel Movements 2 1 1 Result Diagram: 05/01/17 0900 05/02/17 0752 Objective Remarks GENERAL: patient sitting up in bed. Appears comfortable. Patient agreeable and pleasant today. No change on exam today. SKIN: Warm and dry. HEAD: Normocephalic. EYES: No scleral icterus. No injection or drainage. NECK: Supple, trachea midline. No JVD. CARDIOVASCULAR: Regular rate and rhythm without murmurs, gallops, or rubs. RESPIRATORY: Breath sounds equal bilaterally. No accessory muscle use. GASTROINTESTINAL: Abdomen soft, non-tender, nondistended. MUSCULOSKELETAL: No cyanosis, or edema. Stage IV left lateral ankle wound. No surrounding erythema. BACK: Nontender without obvious deformity. No CVA tenderness. A/P Assessment and Plan 05/03. Patient seen and examined. No changes in management. Discussed with nursing and case management. //Metabolic encephalopathy //Underlying cognitive impairment //not cooperative with the medical care - Acute worsening of his mentation seems to be secondary to pneumonia and sepsis - IMPROVED - psych consulted and started on Zyprexa - CT of the head negative for acute findings - PT/OT -uncooperative today 04/30. = 05/01. Discussed with nursing. Patient intermittently uncooperative. I have discussed with psychiatrist, who will see the patient. Appreciate assistance. = 05/02. Discussed again with nursing. Patient cooperative for over 24 hours. It is likely that the prednisone was exacerbating patient's psychosis. Expect patient to remain agreeable off of prednisone. We'll continue Zyprexa. //hypertension. blood pressure elevated up to 200 today. Added hydralazine scheduled.continue to monitor. = 05/01. Systolic blood pressure somewhat improved. In the 180s systolic. We will increase hydralazine today. Continue amlodipine, thiazide, lisinopril. = 05/02. Blood pressure acceptable. Continue current regimen. Addition of hydralazine. //hypernatremia. = 05/01. Sodium 136 today from 146 yesterday. Discontinue one half-normal saline. Recheck labs tomorrow. = 05/02. Resolved. //Acute hypoxemic respiratory failure Left lower lobe pneumonia COPD exacerbation History of small cell lung cancer - Oxygen by [place] to keep sat above 90% - continue neb treatment -taper down IV steroids. Continue Advair -continue Levaquin - CT of the chest showed Left sided pneumonia - ADD MUCINEX - INCENTIVE SPIROMETRY - SWITCH TO PO STEROIDS = 05/01. Further tapering of steroids. = Appears resolved. Patient on 2 L O2. Continue duo nebs, Symbicort. Follow with pulmonology as outpatient. //Sepsis //Healthcare associated pneumonia in left lower lobe - continue antibiotics - as noted above. WITH LEVAQUIN - blood and sputum cultures negative so far. Negative for influenza = 05/01. Patient is completing course of antibiotics. Antibiotics. = 05/02. Patient completed course of antibiotics. We'll need repeat chest x- ray in one week as outpatient. //diarrhea- Patient had formed stool and C. difficile was canceled. //Non-small cell lung cancer - Monitor CBC, CMP - Dr. Dugan consulted- IN REMISSION = Follow-up with oncology as scheduled as outpatient. //Hypokalemia- better -Resolved after replacement. //PROPH: - Bilateral lower extremity SCDs. Lovenox 40 mg sq qq. IV Famotidine Discharge Planning Discharge to SNF. Rakesh Paniagua MD May 03, 2017 15:44
== END 2017-05-03 13:55 | DRG 871 ==
LOC: NEPE 10:33 → NEDA 12:28 → HIMW 14:55 → N04A 04-24 17:33
PROVIDERS: ADMIT Internal Medicine; ATTEND Internal Medicine
DX: A41.9 Sepsis, unspecified organism (principal); J96.01 Acute respiratory failure with hypoxia; G93.41 Metabolic encephalopathy; L89.524 Pressure ulcer of left ankle, stage 4; L89.151 Pressure ulcer of sacral region, stage 1; E87.0 Hyperosmolality and hypernatremia; J18.1 Lobar pneumonia, unspecified organism; Z99.81 Dependence on supplemental oxygen; J44.1 Chronic obstructive pulmonary disease with (acute) exacerbation; J44.0 Chronic obstructive pulmonary disease with (acute) lower respiratory infection; G62.9 Polyneuropathy, unspecified; I10 Essential (primary) hypertension; R41.89 Other symptoms and signs involving cognitive functions and awareness; E87.6 Hypokalemia; R19.7 Diarrhea, unspecified; T38.0X5A Adverse effect of glucocorticoids and synthetic analogues, initial encounter; F29 Unspecified psychosis not due to a substance or known physiological condition; F32.9 Major depressive disorder, single episode, unspecified; F41.9 Anxiety disorder, unspecified; Y95 Nosocomial condition; Z85.118 Personal history of other malignant neoplasm of bronchus and lung; Z87.891 Personal history of nicotine dependence; Z92.21 Personal history of antineoplastic chemotherapy; Z92.3 Personal history of irradiation; Z99.3 Dependence on wheelchair
CPT/HCPCS: 36600; 70450; 71045; 71250; 80048; 80053; 80069; 80202; 81001; 82565; 82805; 83036; 83605; 83735; 84100; 84132; 84439; 84443; 85025; 85610; 85730; 87040; 87070; 87077; 87186; 87205; 87641; 87804; 93005; 94150; 94640; 94664; 96365; 96375; J0360; J0456; J0692; J1630; J1650; J1956; J2543; J2920; J2930; J3370; J3480; J7030; J7040; J7050; J7512

== ENCOUNTER 2017-12-11 13:04 | Inpatient (IN) ==
--- NOTE | 2017-12-11 13:59 | ED ---
HPI General Chief Complaint: Fall Stated Complaint: Fall Time Seen by Provider: 12/11/17 13:27 Source: patient Mode of arrival: EMS Limitations: no limitations History of Present Illness HPI Narrative: Patient is a 77-year-old male who presents the emergency room after he suffered a mechanical fall. Patient reports that at baseline, he gets around by using his wheelchair. Patient reports that he fell asleep in his wheelchair today, reports that he fell forwards and fell out of his wheelchair while he was sleeping. He did wake up during his fall and saw that he hit his head on the hard floor. Patient reports that he has a "bump" to his forehead. Denies loc, denies vision changes. Denies neck pain. Denies chest pain/sob. Denies abdominal pain. He is not on any anticoagulants. Patient with no other complaints. Related Data Home Medications Medication Instructions Recorded Confirmed amlodipine 5 mg PO DAILY 12/11/17 12/11/17 atenolol 100 mg PO DAILY 12/11/17 12/11/17 budesonide-formoterol [Symbicort] 2 puff INHALATION BID 12/11/17 12/11/17 calcium carbonate-vitamin D3 1 tab PO DAILY 12/11/17 12/11/17 [Calcium 600 + D(3)] ferrous sulfate [Iron (ferrous 325 mg PO BID 12/11/17 12/11/17 sulfate)] folic acid 0.4 mg PO DAILY 12/11/17 12/11/17 gabapentin 300 mg PO BID 12/11/17 12/11/17 ipratropium-albuterol 3 ml INHALATION Q8H 12/11/17 12/11/17 olanzapine 5 mg PO DAILY 12/11/17 12/11/17 olanzapine 15 mg PO HS 12/11/17 12/11/17 pediatric cjxpiwzl-icyi-kmp 1 tab PO DAILY 12/11/17 12/11/17 [Multi-Vitamins with Iron] potassium chloride 10 meq PO DAILY 12/11/17 12/11/17 pravastatin 20 mg PO DAILY 12/11/17 12/11/17 sertraline 100 mg PO DAILY 12/11/17 12/11/17 zinc sulfate 220 mg PO DAILY 12/11/17 12/11/17 Allergies Allergy/AdvReac Type Severity Reaction Status Date / Time No Known Allergies Allergy Unknown Uncoded 04/23/17 11:23 Review of Systems ROS: all other systems reviewed are negative [facility] Medical History Medical History Anemia (Acute) COPD (chronic obstructive pulmonary disease) (Acute) Dementia (Acute) Difficulty walking (Acute) Frequent falls (Acute) Hyperlipidemia (Acute) Hypertension (Acute) Major depressive disorder (Acute) 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 HEAD: Normocephalic. Patient with abrasion to left forehead EYES: Pupils equal and round. No scleral icterus. No injection or drainage. ENT: No nasal bleeding or discharge. Mucous membranes pink and moist. NECK: Trachea midline. No JVD. No midline cervical tenderness CARDIOVASCULAR: Regular rate and rhythm. No murmur appreciated. RESPIRATORY: No accessory muscle use. Clear to auscultation. Breath sounds equal bilaterally. GASTROINTESTINAL: Abdomen soft, non-tender, nondistended. Hepatic and splenic margins not palpable. MUSCULOSKELETAL: No obvious deformities. No clubbing. No cyanosis. No edema. Patient with no midline tenderness to thoracic or lumbar spine. Patient with no deformities to extremities - he is able to ROM all extremities NEUROLOGICAL: Awake and alert. No obvious cranial nerve deficits. Motor grossly within normal limits. Normal speech. PSYCHIATRIC: Appropriate mood and affect; insight and judgment normal. Course Initial Documented Vital Signs Temperature 98.0 F 12/11/17 13:23 Pulse Rate 50 L 12/11/17 13:23 Respiratory Rate 16 12/11/17 13:23 Blood Pressure 146/66 H 12/11/17 13:23 Pulse Oximetry 92 L 12/11/17 13:23 Last Documented Vital Signs Temperature 98.0 F 12/11/17 13:23 Pulse Rate 50 L 12/11/17 13:23 Respiratory Rate 16 12/11/17 13:23 Blood Pressure 146/66 H 12/11/17 13:23 Pulse Oximetry 92 L 12/11/17 13:23 Medical Decision Making MDM Narrative Medical decision making narrative: Patient CT of the head shows a 3.7 x 5.1 cm mass involving the posterior aspect of the right temporal cortex in the right occipital cortex. There is surrounding vasogenic edema. I talked to his Osman Yuan -reports that patient is DNR, patient is at [facility] as he has developed Alzheimer's dementia as well as gait instability and has reports that he cannot care for patient anymore.. Patient' s wishes that patient remain a DNR CODE STATUS. As per patient's intracranial mass, he would like neurosurgery as well as oncology to evaluate patient to see what options patient has. 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 Ultimately, understands poor prognosis for patient. Plan to admit patient to the hospital for neurosurgery as well as for oncology evaluation. DNR CODE STATUS was reviewed with his Osman Yuan Case reviewed with Dr. Fonseca who accepts patient to service. Medical Screen Exam Complete: Yes Emergency Medical Condition: Yes Differential Diagnosis Differential Diagnosis: ich, concussion, cervical sprain/strain Medical Records Medical records reviewed: Yes I reviewed the patient's medical records. Imaging Data Attestation: I personally reviewed and interpreted this imaging study as follows : Radiologist's impression: Cervical Spine CT 12/11/17 13:38 CONCLUSION: 1. Degenerative arthritic changes within the cervical spine as above. No acute fracture or destructive lesion is identified. Chest X-Ray 12/11/17 13:38 CONCLUSION: Mild airspace disease in left upper lobe and right lung base Otherwise stable chest Right Ltknqt-d-Tipt catheter remains in stable position. Head CT 12/11/17 13:38 CONCLUSION: 1. 3.7 x 5.1 cm mass involving the posterior aspect of the right temporal cortex and the right occipital cortex. There is surrounding vasogenic edema. This is highly suspicious for malignancy. Lesion is new compared to previous CT scan dated 04/23/2017. Discharge Plan Discharge Disposition Patient Disposition: 30 Still Patient Discharge Condition Condition: Stable Discharge Details Diagnosis: Brain tumor Physicians Team ED Provider: Yesenia Keith Primary Care Provider: UNKNOWN, Rxs /Orders / Referrals /Forms Prescriptions: No Action atenolol 100 mg Tablet 100 mg PO DAILY RF: 0 amlodipine 5 mg Tablet 5 mg PO DAILY RF: 0 folic acid 400 mcg Tablet 0.4 mg PO DAILY RF: 0 gabapentin 300 mg Capsule 300 mg PO BID RF: 0 calcium carbonate-vitamin D3 [Calcium 600 + D(3)] 600 mg(1,500mg) -400 unit Tablet 1 tab PO DAILY RF: 0 potassium chloride 10 mEq Capsule, Extended Release 10 meq PO DAILY RF: 0 ipratropium-albuterol 0.5 mg-3 mg(2.5 mg base)/3 mL Solution For Nebulization 3 ml INHALATION Q8H RF: 0 sertraline 100 mg Tablet 100 mg PO DAILY RF: 0 olanzapine 5 mg Tablet 5 mg PO DAILY RF: 0 pediatric wzlbzgrj-ahhc-paa [Multi-Vitamins with Iron] Tablet,Chewable 1 tab PO DAILY RF: 0 zinc sulfate 220 mg Tablet 220 mg PO DAILY RF: 0 ferrous sulfate [Iron (ferrous sulfate)] 325 mg (65 mg iron) Tablet 325 mg PO BID RF: 0 olanzapine 15 mg Tablet 15 mg PO HS RF: 0 pravastatin 20 mg Tablet 20 mg PO DAILY RF: 0 budesonide-formoterol [Symbicort] 160-4.5 mcg/actuation Hfa Aerosol Inhaler 2 puff INHALATION BID RF: 0 Discharge Interventions Interventions: Vital Signs Last Done: 12/11/17 16:18 Status ED Status: With Doctor
--- NOTE | 2017-12-11 15:45 | XR ---
EXAM DATE: 12/11/2017 3:06 PM EDT AGE/SEX: 77 years / Male INDICATIONS: Fall, weakness, short of breath CLINICAL DATA: This is the patient's initial encounter. Patient reports that signs and symptoms have been present for 1 day and indicates a pain score of Nonresponsive. MEDICAL/SURGICAL HISTORY: . small cell carcinoma . infusaport COMPARISON: [facility] [place], CHEST SINGLE AP, 04/23/2017. . FINDINGS: Lungs are hypoaerated. There is mild airspace disease in the right base and left upper lobe. Heart an d mediastinal structures are stable. CONCLUSION: Mild airspace disease in left upper lobe and right lung base Otherwise stable chest Right Ktooae-a-Xkxg catheter remains in stable position. Electronically signed by: Segundo Jenkins MD 12/11/2017 3:44 PM EDT
--- NOTE | 2017-12-11 15:46 | CT ---
EXAM DATE: 12/11/2017 3:19 PM EDT AGE/SEX: 77 years / Male INDICATIONS: Fell out of wheelchair and hit head CLINICAL DATA: This is the patient's initial encounter. Patient reports that signs and symptoms have been present for 1 day and indicates a pain score of 10/10. MEDICAL/SURGICAL HISTORY: Chronic obstructive pulmonary disease. Hypertension. Dementia. None. RADIATION DOSE: 56.35 CTDI (mGy) COMPARISON: [facility] [place], CT BRAIN W/O CONTRAST, 04/23/2017. . TECHNIQUE: CT of the head without contrast. Using automated exposure control and adjustment of the mA and/or kV according to patient size, radiation dose was kept as low as reasonably achievable to ob tain optimal diagnostic quality images. DICOM format image data is available electronically for revi ew and comparison. FINDINGS: The examination demonstrates a 3.7 x 5.1 cm mass involving the posterior aspect of the right temporal cortex and the right occipital cortex. There is surrounding vasogenic edema. This lesion was not geovanna dent on previous CT scan dated 04/23/2017. This appears soft tissue density. Primary differential cons ideration would be glioblastoma versus metastatic lesion. The ventricles are normal in size and configuration. There is moderate microvascular ischemic demyeli tazlina change. No abnormal extra-axial fluid collections are seen. The cerebellar hemispheres are int act. The fourth ventricle is midline. The osseous structures of the skull are intact. CONCLUSION: 1. 3.7 x 5.1 cm mass involving the posterior aspect of the right temporal cortex and the right occip ital cortex. There is surrounding vasogenic edema. This is highly suspicious for malignancy. Lesion i s new compared to previous CT scan dated 04/23/2017. Electronically signed by: Pola Major MD 12/11/2017 3:45 PM EDT
--- NOTE | 2017-12-11 15:56 | CT ---
EXAM DATE: 12/11/2017 3:30 PM EDT AGE/SEX: 77 years / Male INDICATIONS: Patient fell out of wheelchair and hit head CLINICAL DATA: This is the patient's initial encounter. Patient reports that signs and symptoms have been present for 1 day and indicates a pain score of 10/10. MEDICAL/SURGICAL HISTORY: Chronic obstructive pulmonary disease. Hypertension. Dementia. None . RADIATION DOSE: 26.15 CTDI (mGy) COMPARISON: [facility] [place], CT CERVICAL SPINE W/O CONTRAST, 05/17/2016. . TECHNIQUE: Contiguous axial images were obtained using helical multirow detector technique. The vol umetric data was post-processed with multiplanar reconstruction in oblique axial, sagittal, and coron al planes. Using automated exposure control and adjustment of the mA and/or kV according to patient s ize, radiation dose was kept as low as reasonably achievable to obtain optimal diagnostic quality lashonda ges. DICOM format image data is available electronically for review and comparison. FINDINGS: Sagittal and coronal reformatted images demonstrate adequate alignment of the cervical vertebral bodi es. There are degenerated discs throughout the cervical spine. Most notably at C4-5 and C5-6. No acut e fracture is seen. Axial imaging: C2-C3: There is mild facet arthritis bilaterally the thecal space and neural foramina are adequate. C3-C4: There is advanced facet arthritis on the left. There is mild facet arthritis on the right. Th e thecal space is adequate. There is mild bony foraminal narrowing on the right. There is mild bony f oraminal narrowing on the left as well. C4-C5: There is moderate facet arthritis bilaterally. The thecal space is adequate. The foramina luis ear adequate. C5-C6: There is a degenerated disc. There is osteophytic ridging from the vertebral endplate which j ust effaces the ventral thecal sac. There is a small broad-based disc bulge. There is moderate facet arthritis bilaterally with degenerative facet hypertrophy. There is moderate bony foraminal narrowing bilaterally. C6-C7: There is mild facet arthritis bilaterally. The thecal space and foramina appear adequate. C7-T1: No epidural impressions seen. CONCLUSION: 1. Degenerative arthritic changes within the cervical spine as above. No acute fracture or destructi ve lesion is identified. Electronically signed by: Pola Major MD 12/11/2017 3:54 PM EDT
[2017-12-11] MEDS ORDERED: Bisacodyl 10 MG Supp RECTAL PRN (16:26)
[2017-12-11] MEDS ORDERED: Acetaminophen 325 MG Tablet PO PRN (16:26)
[2017-12-11] MEDS: Sod Chloride 0.9% Inj 1,000 ML IV.CONT SCH (16:37)
--- NOTE | 2017-12-11 16:42 | P.HP ---
History of Present Illness Primary Care Physician: UNKNOWN Chief Complaint: fall History of Present Illness: Patient is a 77-year-old male with PMH of squamous cell CA, dementia, who presents the emergency room after he suffered a mechanical fall. Patient reports that at baseline, he gets around by using his wheelchair. Patient reports that he fell asleep in his wheelchair today, reports that he fell forwards and fell out of his wheelchair while he was sleeping. He did wake up during his fall and saw that he hit his head on the hard floor. Patient reports that he has a "bump" to his forehead. Denies loc, denies vision changes. Says he has headache on /off. He has no headache at this time. Denies chest pain/sob. Denies abdominal pain. He is not on any anticoagulants. Patient with no other complaints. Patient doesn't have a current oncology Dr but thinks he has seen inthe past Dr Dugan oncology in [place]. Patient and family wants further eval by neourosurgery and oncology. Likely will not aggressive measures. Consult neurosurgery seen by Dr Gentile , recommends contrast MRI of the brain ordered in the ER. Also start Decadron. Oncology was consulted as well as palliative care for goals of care. 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 Restless leg syndrome - Tobacco History Second Hand Smoke Exposure: No Tobacco Use In Past 30 Days: No Smoking Status: Former smoker - Alcohol History How Often Do You Have a Drink Containing Alcohol: Monthly or less - Substance Use History Substance History: No History of Abuse - Travel History Recent Travel in the [facility] Within the Last 8 Weeks: No - Immunization History Tetanus Immunization: Unsure Hx Influenza Vaccine This Season: Yes Medications and Allergies Active Medications: Active Medications Acetaminophen (Tylenol) 650 mg PO Q4H PRN PRN Reason: Temp > 100.4 Al Hydroxide/Mg Hydroxide (Milk Of Magnesia Liq) 30 ml PO Q12H PRN PRN Reason: Mild Constipation Albuterol (Duoneb Neb (Prn)) ampul NEB Q8H [facility] Amlodipine Besylate (Norvasc) 5 mg PO DAILY [facility] Atenolol (Tenormin) 100 mg PO DAILY [facility] Bisacodyl (Dulcolax Supp) 10 mg RECTAL DAILY PRN PRN Reason: SEVERE CONSITIPATION Budesonide/Formoterol Fumarate (Symbicort 160/4.5 Mcg Inh) 2 puff INH BID [facility] Gabapentin (Neurontin) 300 mg PO BID [facility] Sodium Chloride (Ns Inj) 1,000 mls @ 100 mls/hr IV.CONT .Q10H [facility] Lactulose (Lactulose Liq) 30 ml PO DAILY PRN PRN Reason: SEVERE CONSITIPATION Olanzapine (Zyprexa) 5 mg PO DAILY [facility] Ondansetron HCl (Zofran Inj) 4 mg IV.PUSH Q6H PRN PRN Reason: NAUSEA OR VOMITING Pravastatin Sodium (Pravachol) 20 mg PO DAILY [facility] Senna/Docusate Sodium (Roseann-Colace) 1 tab PO BID [facility] Sennosides (Senokot) 17.2 mg PO Q12H PRN PRN Reason: Moderate Constipation Sertraline HCl (Zoloft) 100 mg PO DAILY [facility] Sodium Chloride (Ns Flush) 2 ml IV.FLUSH PRN PRN PRN Reason: FLUSH AFTER USING IV ACCESS Allergies Allergy/AdvReac Type Severity Reaction Status Date / Time No Known Allergies Allergy Unknown Uncoded 04/23/17 11:23 Home Medications Medication Instructions Recorded Confirmed Type amlodipine 5 mg PO DAILY 12/11/17 12/11/17 History atenolol 100 mg PO DAILY 12/11/17 12/11/17 History budesonide-formoterol [Symbicort] 2 puff INHALATION BID 12/11/17 12/11/17 History calcium carbonate-vitamin D3 1 tab PO DAILY 12/11/17 12/11/17 History [Calcium 600 + D(3)] ferrous sulfate [Iron (ferrous 325 mg PO BID 12/11/17 12/11/17 History sulfate)] folic acid 0.4 mg PO DAILY 12/11/17 12/11/17 History gabapentin 300 mg PO BID 12/11/17 12/11/17 History ipratropium-albuterol 3 ml INHALATION Q8H 12/11/17 12/11/17 History olanzapine 5 mg PO DAILY 12/11/17 12/11/17 History olanzapine 15 mg PO HS 12/11/17 12/11/17 History pediatric ccfckefb-kpjc-ivn 1 tab PO DAILY 12/11/17 12/11/17 History [Multi-Vitamins with Iron] potassium chloride 10 meq PO DAILY 12/11/17 12/11/17 History pravastatin 20 mg PO DAILY 12/11/17 12/11/17 History sertraline 100 mg PO DAILY 12/11/17 12/11/17 History zinc sulfate 220 mg PO DAILY 12/11/17 12/11/17 History Exam Vital signs: Vital Signs 12/11/17 13:23 12/11/17 16:18 Temperature 98.0 F 97.6 F Pulse Rate 50 L 62 Respiratory Rate 16 18 Blood Pressure 146/66 H 186/82 H Pulse Oximetry 92 L 94 L Intake & Output 12/10/17 12/11/17 12/11/17 18:59 06:59 18:59 Weight 86.183 kg Narrative: GENERAL: 77 yo male, in nad. SKIN: Warm and dry. HEAD: Normocephalic. Patient with abrasion to left forehead. EYES: Pupils equal and round. No scleral icterus. No injection or drainage. ENT: No nasal bleeding or discharge. Mucous membranes pink and moist. NECK: Trachea midline. No JVD. CARDIOVASCULAR: Regular rate and rhythm. RESPIRATORY: No accessory muscle use. Clear to auscultation. Breath sounds equal bilaterally. GASTROINTESTINAL: Abdomen soft, non-tender, nondistended. Hepatic and splenic margins not palpable. MUSCULOSKELETAL: Extremities without clubbing, cyanosis, or edema. No obvious deformities. NEUROLOGICAL: Awake and alert. No obvious cranial nerve deficits. Motor grossly within normal limits. Five out of 5 muscle strength in the arms and legs. Normal speech. PSYCHIATRIC: Appropriate mood and affect; insight and judgment normal. Results - Labs CBC & Chem 7: 12/11/17 16:35 12/11/17 16:35 - Imaging Impressions Cervical Spine CT 12/11/17 13:38 CONCLUSION: 1. Degenerative arthritic changes within the cervical spine as above. No acute fracture or destructive lesion is identified. Chest X-Ray 12/11/17 13:38 CONCLUSION: Mild airspace disease in left upper lobe and right lung base Otherwise stable chest Right Wshxuc-t-Dlzf catheter remains in stable position. Head CT 12/11/17 13:38 CONCLUSION: 1. 3.7 x 5.1 cm mass involving the posterior aspect of the right temporal cortex and the right occipital cortex. There is surrounding vasogenic edema. This is highly suspicious for malignancy. Lesion is new compared to previous CT scan dated 04/23/2017. Caprini VTE Risk Assessment Caprini VTE Risk Assessment: Moderate/High Risk (score >= 2) Caprini Risk Assessment Model: Point Value = 1 Point Value = 2 Point Value = 3 Point Value = 5 Age 41-60 Minor surgery BMI > 25 kg/m2 Swollen legs Varicose veins or History of unexplained or recurrent spontaneous Oral contraceptives or hormone replacement Sepsis (< 1 month) Serious lung disease, including pneumonia (< 1 month) Abnormal pulmonary function Acute myocardial infarction Congestive heart failure (< 1 month) History of inflammatory bowel disease Medical patient at bed rest Age 61-74 Arthroscopic surgery Major open surgery (> 45 min) Laparoscopic surgery (> 45 min) Malignancy Confined to bed (> 72 hours) Immobilizing plaster cast Central venous access Age >= 75 History of VTE Family history of VTE Factor V Leiden Prothrombin [id number] Lupus anticoagulant Anticardiolipin antibodies Elevated serum homocysteine Heparin-induced thrombocytopenia Other congenital or acquired thrombophilia Stroke (< 1 month) Elective arthroplasty Hip, pelvis, or leg fracture Acute spinal cord injury (< 1 month) Prophylaxis Regimen: Total Risk Factor Score Risk Level Prophylaxis Regimen 0-1 Low Early ambulation 2 Moderate Order ONE of the following: *Sequential Compression Device (SCD) *Heparin 5000 units SQ BID 3-4 Higher Order ONE of the following medications: *Heparin 5000 units SQ TID *Enoxaparin/Lovenox 40 mg SQ daily (WT < 150 kg, CrCl > 30 mL/min) *Enoxaparin/Lovenox 30 mg SQ daily (WT < 150 kg, CrCl > 10-29 mL/min) *Enoxaparin/Lovenox 30 mg SQ BID (WT < 150 kg, CrCl > 30 mL/min) AND/OR *Sequential Compression Device (SCD) 5 or more Highest Order ONE of the following medications: *Heparin 5000 units SQ TID (Preferred with Epidurals) *Enoxaparin/Lovenox 40 mg SQ daily (WT < 150 kg, CrCl > 30 mL/min) *Enoxaparin/Lovenox 30 mg SQ daily (WT < 150 kg, CrCl > 10-29 mL/min) *Enoxaparin/Lovenox 30 mg SQ BID (WT < 150 kg, CrCl > 30 mL/min) AND *Sequential Compression Device (SCD) Assessment and Plan - Plan S/p mechanical fall No signs of fracture Brain mass 3.7 x 5.1 mass involving the posterior aspect of the right temporal cortex and the right occipital cortex. CT head reviewed and discused with ER physician 3.7 x 5.1 cm mass involving the posterior aspect of the right temporal cortex and the right occipital cortex. There is surrounding vasogenic edema. This is highly suspicious for malignancy. Lesion is new compared to previous CT scan dated 04/23/2017. CXR reviewed no acute findings. Right infuse A Port Cervical Spine CT reviewed. Degenerative arthritic changes within the cervical spine as above. No acute fracture or destructive lesion is identified. Consult oncology and neurosurgery for evaluation . Patient and family wants further evaluation however want DNR status at this time. Discussed with neurosx recommends MRI with contrast of the brain, has been ordered Need poss CT a/p and chest and PET scan , for grading look for mets, oncology consulted Also start IV decadron 4mg Q6hrs Also will consult palliative care for goals of care Restart home meds as appropriate Consutl CM for DC plan Code status: DNR DVT ppx SCD/TEDs CI chemoppx at this time patient with brain mass Code Status: DNR Discussed Condition With: patient, nurse, ED physician, neurosurgeon
[2017-12-11 16:49] LABS: Baso % (Auto) 0.5 % (0.0-2.0); Eos # (Auto) 0.3 th/mm3 (0.0-0.4); Eos % (Auto) 3.6 % (0.0-4.0); Hematocrit 38.2 % (39.0-51.0); Hemoglobin 12.5 gm/dL (13.0-17.0); Lymph % (Auto) 28.3 % (9.0-44.0); Mean Corpuscular HGB Conc 32.6 % (32.0-36.0); Mean Corpuscular Hemoglobin 26.5 pg (27.0-34.0); Mean Corpuscular Volume 81.2 fL (80.0-100.0); Mean Platelet Volume 8.7 fL (7.0-11.0); Mono # (Auto) 0.6 th/mm3 (0.0-0.9); Mono % (Auto) 8.4 % (0.0-8.0); Neut # (Auto) 4.2 th/mm3 (1.8-7.7); Neut % (Auto) 59.2 % (16.0-70.0); Platelet Count 146 th/mm3 (150-450); Red Blood Count 4.71 mil/mm3 (4.50-5.90); Red Cell Distribution Width 15.9 % (11.6-17.2); White Blood Count 7.1 th/mm3 (4.0-11.0)
[2017-12-11 17:15] LABS: Anion Gap 7 meq/L (5-15); Blood Urea Nitrogen 22 mg/dL (7-18); Calcium 8.7 mg/dL (8.5-10.1); Carbon Dioxide 28.1 meq/L (21.0-32.0); Chloride 106 meq/L (98-107); Glomerular Filtration Rate Greater Than 89 mL/min (>89); Glucose,Random 81 mg/dL (74-106); Potassium 4.2 meq/L (3.5-5.1); Sodium 141 meq/L (136-145)
[2017-12-11 17:21] LABS: Prothrombin Time 10.5 sec (9.8-11.6)
--- NOTE | 2017-12-11 17:27 | P.CONNS ---
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 Fell out of wheelchair today, had been unsteady due to radiation of the brain, falling more frequently (in SNF). Had a CT head in April which was clean but todays scan shows a large right parieto-occipital mass. History obtained over phone with (Osman Yuan, , possibly DNR based on discussion but not official). Recently diagnosed with mild Alzheimer's disease (dementia) in SNF. is surrogate power of staff attorney for health care-- spoke with on phone. Patient is roughly asymptomatic at the moment and helps with the history. Has been following with Oncology in [place] and a PET scan was discussed recently. [facility] - History History Provided By: Patient - Medical History Medical History: Medical History (Last Reviewed 12/11/17 @ 16:39 by Monica Fonseca MD) Anemia COPD (chronic obstructive pulmonary disease) Dementia Difficulty walking Frequent falls Hyperlipidemia Hypertension Major depressive disorder Malignant neoplasm of upper lobe of lung Restless leg syndrome - Tobacco History Second Hand Smoke Exposure: No Tobacco Use In Past 30 Days: No Smoking Status: Former smoker - Alcohol History How Often Do You Have a Drink Containing Alcohol: Monthly or less - Substance Use History Substance History: No History of Abuse - Travel History Recent Travel in the [facility] Within the Last 8 Weeks: No - Immunization History Tetanus Immunization: Unsure Hx Influenza Vaccine This Season: Yes Medications and Allergies Active Medications: Active Medications Acetaminophen (Tylenol) 650 mg PO Q4H PRN PRN Reason: Temp > 100.4 Al Hydroxide/Mg Hydroxide (Milk Of Vincent Liq) 30 ml PO Q12H PRN PRN Reason: Mild Constipation Albuterol (Duoneb Neb (Radha)) 1 ampul NEB Q8HR NEB RADHA Amlodipine Besylate (Norvasc) 5 mg PO DAILY RADHA Atenolol (Tenormin) 100 mg PO DAILY RADHA Bisacodyl (Dulcolax Supp) 10 mg RECTAL DAILY PRN PRN Reason: SEVERE CONSITIPATION Budesonide/Formoterol Fumarate (Symbicort 160/4.5 Mcg Inh) 2 puff INH BID [facility] Gabapentin (Neurontin) 300 mg PO BID [facility] Sodium Chloride (Ns Inj) 1,000 mls @ 100 mls/hr IV.CONT .Q10H RADHA Last Admin: 12/11/17 16:37 Dose: 100 mls/hr Lactulose (Lactulose Liq) 30 ml PO DAILY PRN PRN Reason: SEVERE CONSITIPATION Olanzapine (Zyprexa) 5 mg PO DAILY [facility] Ondansetron HCl (Zofran Inj) 4 mg IV.PUSH Q6H PRN PRN Reason: NAUSEA OR VOMITING Pravastatin Sodium (Pravachol) 20 mg PO DAILY [facility] Senna/Docusate Sodium (Roesann-Colace) 1 tab PO BID [facility] Sennosides (Senokot) 17.2 mg PO Q12H PRN PRN Reason: Moderate Constipation Sertraline HCl (Zoloft) 100 mg PO DAILY [facility] Sodium Chloride (Ns Flush) 2 ml IV.FLUSH PRN PRN PRN Reason: FLUSH AFTER USING IV ACCESS Allergies Allergy/AdvReac Type Severity Reaction Status Date / Time No Known Allergies Allergy Unknown Uncoded 04/23/17 11:23 Home Medications Medication Instructions Recorded Confirmed Type amlodipine 5 mg PO DAILY 12/11/17 12/11/17 History atenolol 100 mg PO DAILY 12/11/17 12/11/17 History budesonide-formoterol [Symbicort] 2 puff INHALATION BID 12/11/17 12/11/17 History calcium carbonate-vitamin D3 1 tab PO DAILY 12/11/17 12/11/17 History [Calcium 600 + D(3)] ferrous sulfate [Iron (ferrous 325 mg PO BID 12/11/17 12/11/17 History sulfate)] folic acid 0.4 mg PO DAILY 12/11/17 12/11/17 History gabapentin 300 mg PO BID 12/11/17 12/11/17 History ipratropium-albuterol 3 ml INHALATION Q8H 12/11/17 12/11/17 History olanzapine 5 mg PO DAILY 12/11/17 12/11/17 History olanzapine 15 mg PO HS 12/11/17 12/11/17 History pediatric [id number]-[id number]-fzq 1 tab PO DAILY 12/11/17 12/11/17 History [Multi-Vitamins with Iron] potassium chloride 10 meq PO DAILY 12/11/17 12/11/17 History pravastatin 20 mg PO DAILY 12/11/17 12/11/17 History sertraline 100 mg PO DAILY 12/11/17 12/11/17 History zinc sulfate 220 mg PO DAILY 12/11/17 12/11/17 History Exam Vital signs: Vital Signs 12/11/17 13:23 12/11/17 16:18 Temperature 98.0 F 97.6 F Pulse Rate 50 L 62 Respiratory Rate 16 18 Blood Pressure 146/66 H 186/82 H Pulse Oximetry 92 L 94 L Intake & Output 12/10/17 12/11/17 12/11/17 18:59 06:59 18:59 Weight 86.183 kg Narrative: A&O x 3 CN II-XII intact including visual pillai to my bedside testing Motor 5/5 UE/LE Results - Laboratory Findings CBC and BMP: 12/11/17 16:35 12/11/17 16:35 Abnormal lab findings: Abnormal Labs 12/11/17 16:35 Hgb 12.5 L Hct 38.2 L MCH 26.5 L Plt Count 146 L [place] % (Auto) 8.4 H Assessment and Plan - Plan 77yoM with history of small cell ca. 5 years ago treated including whole brain XRT. Fell today and incidentally discovered to have a large right parieto- occipital mass on CT scan with vasogenic edema. Plan: Discussed at length with his (power of staff attorney). They would like to get more information although ultimately, they will probably not be aggressive in treatment. This would include MRI Brain with and without contrast Decadron 4mg IV q6 CT Chest abdomen pelvis with contrast to look for metastatic disease Potentially Oncology consult depending on this. Potentially palliative consult as well. (They see Kailee in [place]). Neurosurgery (Jigar) will follow
[2017-12-11] MEDS ORDERED: hydrALAZINE 25 MG Tablet PO ONE (20:00)
--- NOTE | 2017-12-11 21:13 | MB ---
cc: Daren Brand MD DATE: 12/11/2017 ATTENDING PHYSICIAN: Monica Fonseca MD REASON FOR CONSULTATION: Oncology consult to render an opinion on a patient with a new brain mass. HISTORY OF PRESENT ILLNESS: The patient is a 77-year-old male brought into the hospital after he fell out of the wheelchair. Reportedly, he fell asleep in the wheelchair and fell forward and hit his head. He had a headache this morning. When he came to the hospital, a CT of the head showed a 3.7 x 5.1 cm mass in the right temporal cortex and right occipital cortex with vasogenic edema. He denies any fever or chills. He has lost about 15 pounds. He has increased weakness. He denies chest pain. He has occasional shortness of breath and cough productive of clear sputum. Denies any nausea or vomiting. Denies abdominal pain, dysuria, hematuria. Denies any bone pain. PAST MEDICAL HISTORY: 1. Small-cell lung cancer treated with chemotherapy and radiation in 2013, followed by prophylactic cranial irradiation. 2. Dementia. 3. Anemia. 4. Chronic obstructive pulmonary disease. 5. Frequent falls. 6. Hypertension. 7. Hyperlipidemia. 8. Major depressive disorder. 9. Peripheral neuropathy. 10. Restless legs syndrome. PAST SURGICAL HISTORY: Cholecystectomy, port placement, colonoscopy. FAMILY HISTORY: No cancer. SOCIAL HISTORY: Quit tobacco about 9 years ago. He smoked 1-1/2 packs for about 45 years. Denies any alcohol use. ALLERGIES: NO KNOWN DRUG ALLERGIES. CURRENT MEDICATIONS: 1. DuoNeb. 2. Norvasc. 3. Atenolol. 4. Budesonide. 5. Decadron. 6. Gabapentin. 7. Zyprexa 8. Pravastatin. 9. Roseann-Colace. 10. Zoloft. REVIEW OF SYSTEMS: CONSTITUTIONAL: As above. EYES: Negative. ENT: Negative. CARDIOVASCULAR: No chest pressure or palpitation. RESPIRATORY: As above. GASTROINTESTINAL: Negative. GENITOURINARY: Negative. MUSCULOSKELETAL: Denies any pain. HEMATOLOGIC: Negative. ENDOCRINE: Negative. HEMATOLOGIC: Negative. PSYCHIATRIC: As above. NEUROLOGIC: As above. PHYSICAL EXAMINATION: VITAL SIGNS: Temperature 97.6, blood pressure 189/83, O2 saturation 96% on 2 liters nasal cannula. GENERAL: He is alert, oriented x3, no acute distress. HEENT: Atraumatic, normocephalic. Pupils are equal, round and reactive to light. Extraocular muscles are intact. No scleral icterus. Oropharynx dry mucosa. No lesion. No thrush. NECK: No thyromegaly. No palpable mass. LYMPHATIC: No palpable cervical, clavicular, axillary, or inguinal lymph nodes. CARDIOVASCULAR: Regular S1, S2. No murmur. LUNGS: Clear to auscultation anteriorly. ABDOMEN: Soft, nontender. Cannot palpate liver or spleen. EXTREMITIES: No cyanosis. No edema. SKIN: No rash or petechiae. NEUROLOGIC: Nonfocal. LABORATORY DATA: Laboratory dated 12/11/2017 was reviewed. ASSESSMENT: 1. Brain mass, most consistent with metastatic cancer. A CT of the head on presentation showed a 3.7 x 5.1 cm mass involving the posterior aspect of right temporal cortex and right occipital cortex. There was surrounding vasogenic edema. The patient has a history of small-cell lung cancer treated in 2013. This brain mass is suspicious for brain metastasis from the small-cell lung cancer but can not rule out primary brain neoplasm. He was started on Decadron. MRI of the brain is pending at this time. 2. History of small-cell lung cancer, appeared to be limited stage. He was treated with chemotherapy and radiation. He had good response. He also received prophylactic cranial irradiation. Given the new brain mass, will get CT of the chest, abdomen and pelvis to see if he has any other recurrent disease or metastatic disease. His last CT of abdomen and pelvis in early September showed a small nonspecific splenic lesion. At that time, Dr. Dugan had suggested a PET scan, but the patient does not want to be aggressive with workup. 3. Chronic obstructive pulmonary disease. 4. Cognitive dysfunction. 5. Chronic anemia. 6. Hypertension. 7. Peripheral neuropathy. 8. Major depressive disorder. RECOMMENDATIONS: 1. Await MRI of the brain. 2. Get a CT of the chest, abdomen and pelvis 3. Continue Decadron. 4. Further recommendations will depend on the above evaluation. Thank you, Dr. Fonseca, for asking me to see this patient. MD EVELIA Tabor/judy , 08:41 PM , 08:53 PM CAIT
[2017-12-11] MEDS: Senna/Docusate Sodium 8.6/50 MG Tablet PO SCH (21:50)
[2017-12-11] MEDS: Budesonide-Formoterol 160/4.5 MCG 6 GM Inhaler INH SCH (21:51)
[2017-12-11] MEDS: Gabapentin 300 MG Capsule PO SCH (21:51)
[2017-12-11] MEDS ORDERED: Diatrizoate Meglum/Diatrizoate Sod Liq 9 ML UDC PO ONE (22:30)
--- NOTE | 2017-12-12 02:09 | CT ---
EXAM DATE: 12/12/2017 1:54 AM EDT AGE/SEX: 77 years / Male INDICATIONS: Shortness of breath. Evaluate progression of lung neoplasm. CLINICAL DATA: This is the patient's initial encounter. Patient reports that signs and symptoms have been present for 1 day and indicates a pain score of 0/10. MEDICAL/SURGICAL HISTORY: Carcinoma, lung. Chronic obstructive pulmonary disease. Anemia. Brain mass. . Port Placement. RADIATION DOSE: 6.67 CTDI (mGy) ; Combined studies COMPARISON: [facility], CT PULMONARY ANGIOGRAM, 03/21/2015. . TECHNIQUE: Multiple contiguous axial images were obtained through the chest during bolus infusion of 95 ml Omnipaque 350 (iohexol) nonionic water-soluble contrast as a cumulative dose for multiple exa ms. Images were obtained in suspended respiration using multiple row detector helical technique. U sing automated exposure control and adjustment of the mA and/or kV according to patient size, radiati on dose was kept as low as reasonably achievable to obtain optimal diagnostic quality images. DICOM format image data is available electronically for review and comparison. FINDINGS: There is mild emphysema. There is a reported history of lung neoplasm. There is some scarring in the upper left lung and paramediastinal region was may be related to prior radiation. No new adenopathy o r soft tissue mass is seen to suggest tumor recurrence on the current exam. There is no pleural or pericardial effusion. Dependent atelectasis present in both lungs. Moderate co ronary calcifications. No acute findings in the upper abdomen. Prior cholecystectomy. Trouav-u-Vint tip in superior vena cav a. CONCLUSION: 1. When compared with 2014 there is no evidence for tumor recurrence. No new adenopathy or soft tiss ue mass. Scarring upper left lung possibly related to prior radiation. 2. Coronary artery calcifications. Prior cholecystectomy. Pqwyny-x-Hbnw in superior vena cava. Electronically signed by: Bob Ramírez MD 12/12/2017 2:07 AM EDT
--- NOTE | 2017-12-12 02:12 | CT ---
EXAM DATE: 12/12/2017 1:52 AM EDT AGE/SEX: 77 years / Male INDICATIONS: Abdominal pain, evaluate for neoplasm. CLINICAL DATA: This is the patient's initial encounter. Patient reports that signs and symptoms have been present for 1 day and indicates a pain score of 3/10. MEDICAL/SURGICAL HISTORY: Carcinoma, lung. Chronic obstructive pulmonary disease. Anemia. Br ain mass. None. ORAL CONTRAST: Prescribed oral contrast ingested. RADIATION DOSE: 6.80 CTDI (mGy) ; Combined studies COMPARISON: [facility] [place], CT ABDOMEN & PELVIS W/O CONTRAST, 05/23/2016. . TECHNIQUE: Multiple contiguous axial images were obtained through the abdomen and pelvis following b olus infusion of 95 ml Omnipaque 350 (iohexol) nonionic water-soluble contrast as a cumulative dose for multiple exams. Prescribed oral contrast ingested. Using automated exposure control and adjustm ent of the mA and/or kV according to patient size, radiation dose was kept as low as reasonably achie vable to obtain optimal diagnostic quality images. DICOM format image data is available electronical ly for review and comparison. FINDINGS: No acute findings in the liver, adrenals or pancreas. Bilateral renal cysts and nonobstructing renal calcifications are stable. Small splenic cyst. No free fluid. No bowel obstruction. No adenopathy. No acute bony abnormalities. Mild constipation. CONCLUSION: 1. Mild constipation. No acute findings. No evidence for metastatic disease to the abdomen and pelvi s. Prior cholecystectomy. Electronically signed by: Bob Ramírez MD 12/12/2017 2:10 AM EDT
[2017-12-12 04:49] LABS: Baso % (Auto) 0.4 % (0.0-2.0); Eos % (Auto) 0.2 % (0.0-4.0); Hematocrit 35.7 % (39.0-51.0); Hemoglobin 11.8 gm/dL (13.0-17.0); Lymph # (Auto) 0.7 th/mm3 (1.0-4.8); Lymph % (Auto) 15.1 % (9.0-44.0); Mean Corpuscular Hemoglobin 26.7 pg (27.0-34.0); Mean Platelet Volume 8.6 fL (7.0-11.0); Mono # (Auto) 0.1 th/mm3 (0.0-0.9); Mono % (Auto) 1.1 % (0.0-8.0); Neut % (Auto) 83.2 % (16.0-70.0); Platelet Count 143 th/mm3 (150-450); White Blood Count 4.8 th/mm3 (4.0-11.0)
[2017-12-12] MEDS: Sod Chloride 0.9% Inj 1,000 ML IV.CONT SCH ×2 (05:11→13:32)
[2017-12-12 05:14] LABS: Albumin 2.9 g/dL (3.4-5.0); Anion Gap 8 meq/L (5-15); Aspartate Aminotransferase 15 U/L (15-37); Blood Urea Nitrogen 18 mg/dL (7-18); Calcium 8.5 mg/dL (8.5-10.1); Carbon Dioxide 28.8 meq/L (21.0-32.0); Chloride 106 meq/L (98-107); Glomerular Filtration Rate Greater Than 89 mL/min (>89); Glucose,Random 124 mg/dL (74-106); Potassium 4.2 meq/L (3.5-5.1); Sodium 143 meq/L (136-145)
[2017-12-12 05:18] LABS: Alanine Aminotransferase 17 U/L (12-78); Alkaline Phosphatase 67 U/L (45-117); Total Protein 6.5 g/dL (6.4-8.2)
[2017-12-12] MEDS: Atenolol 100 MG Tablet PO SCH (08:23)
[2017-12-12] MEDS: Sertraline 100 MG Tablet PO SCH (08:23)
[2017-12-12] MEDS: Senna/Docusate Sodium 8.6/50 MG Tablet PO SCH ×2 (08:23→21:11)
[2017-12-12] MEDS: amLODIPine 5 MG Tablet PO SCH (08:23)
[2017-12-12] MEDS: Gabapentin 300 MG Capsule PO SCH ×2 (08:23→21:11)
[2017-12-12] MEDS: Budesonide-Formoterol 160/4.5 MCG 6 GM Inhaler INH SCH ×2 (08:24→21:12)
--- NOTE | 2017-12-12 09:03 | P.PN ---
Subjective Interval history: Follow-up on patient status post mechanical fall at home, brain mass. Patient seen and examined. Patient states he feels okay this morning. He denies any acute medical complaints. He denies any headache, vision changes, dizziness, weakness, numbness or tingling. States he slept well. He denies any chest pain or shortness of breath. He denies any nausea, vomiting or abdominal pain. Physical Exam Vital signs: Vital Signs 12/11/17 13:23 12/11/17 16:18 12/11/17 19:20 Temperature 98.0 F 97.6 F Pulse Rate 50 L 62 69 Respiratory Rate 16 18 16 Blood Pressure 146/66 H 186/82 H Pulse Oximetry 92 L 94 L 96 12/11/17 20:06 12/11/17 21:47 12/11/17 23:28 Temperature 97.6 F Pulse Rate 74 60 97 H Respiratory Rate 18 18 15 Blood Pressure 189/83 H 157/69 H Pulse Oximetry 96 12/12/17 00:00 12/12/17 02:32 12/12/17 04:30 Temperature 97.6 F 99.0 F Pulse Rate 62 78 Respiratory Rate 18 18 18 Blood Pressure 135/76 187/86 H Pulse Oximetry 97 95 12/12/17 08:00 Temperature 97.8 F Pulse Rate 65 Respiratory Rate 14 Blood Pressure 159/74 H Pulse Oximetry 93 L Intake & Output 12/11/17 12/12/17 12/12/17 18:59 06:59 18:59 Intake Total 1600 / 1600 Balance 1600 / 1600 Weight 86.183 kg 86.18 kg Intake: IV 1600 / 1600 NS Inj 1,000 ML @ 100 mls/hr IV 1600 / 1600 .CONT .Q10H [facility] Rx#:[id number] Other: # Incontinent Voids 1 Date of Last Bowel Movement 12/10/17 Weight On Admission 86.183 kg Narrative: GENERAL: WDWN elderly male patient, INAD. Awake and alert. Appears comfortable. SKIN: Warm and dry. HEAD: Normocephalic. Patient with abrasion to left forehead. EYES: Pupils equal and round. No scleral icterus. No injection or drainage. ENT: No nasal bleeding or discharge. Mucous membranes pink and moist. NECK: Trachea midline. CARDIOVASCULAR: Regular rate and rhythm. +Systolic murmur. RESPIRATORY: No accessory muscle use. Clear to auscultation. Breath sounds equal bilaterally. GASTROINTESTINAL: Abdomen soft, non-tender, nondistended. MUSCULOSKELETAL: Extremities without clubbing, cyanosis, or edema. No obvious deformities. NEUROLOGICAL: Awake and alert. No obvious cranial nerve deficits. Motor grossly within normal limits. Able to move all extremities spontaneously. Normal speech. PSYCHIATRIC: Appropriate mood and affect; insight and judgment normal. Results - Labs CBC & Chem 7: 12/12/17 04:30 12/12/17 04:30 Laboratory Results - last 24 hr 12/11/17 12/11/17 12/11/17 16:35 16:35 16:35 WBC 7.1 RBC 4.71 Hgb 12.5 L Hct 38.2 L MCV 81.2 MCH 26.5 L MCHC 32.6 RDW 15.9 Plt Count 146 L MPV 8.7 Neut % (Auto) 59.2 Lymph % (Auto) 28.3 Casey % (Auto) 8.4 H Eos % (Auto) 3.6 Baso % (Auto) 0.5 Neut # (Auto) 4.2 Lymph # (Auto) 2.0 Casey # (Auto) 0.6 Eos # (Auto) 0.3 Baso # (Auto) 0.0 WBC Differential . Differential Comment Auto diff final PT 10.5 INR 1.0 Sodium 141 Potassium 4.2 Chloride 106 Carbon Dioxide 28.1 Anion Gap 7 BUN 22 H Creatinine 0.66 Estimated GFR Greater than 89 Random Glucose 81 Calcium 8.7 Total Bilirubin AST ALT Alkaline Phosphatase Total Protein Albumin 12/12/17 12/12/17 04:30 04:30 WBC 4.8 RBC 4.40 L Hgb 11.8 L Hct 35.7 L MCV 81.0 MCH 26.7 L MCHC 33.0 RDW 16.0 Plt Count 143 L MPV 8.6 Neut % (Auto) 83.2 H Lymph % (Auto) 15.1 Casey % (Auto) 1.1 Eos % (Auto) 0.2 Baso % (Auto) 0.4 Neut # (Auto) 4.0 Lymph # (Auto) 0.7 L Casey # (Auto) 0.1 Eos # (Auto) 0.0 Baso # (Auto) 0.0 WBC Differential . Differential Comment Auto diff final PT INR Sodium 143 Potassium 4.2 Chloride 106 Carbon Dioxide 28.8 Anion Gap 8 BUN 18 Creatinine 0.71 Estimated GFR Greater than 89 Random Glucose 124 H Calcium 8.5 Total Bilirubin 0.2 AST 15 ALT 17 Alkaline Phosphatase 67 Total Protein 6.5 Albumin 2.9 L - Imaging Impressions Cervical Spine CT 12/11/17 13:38 CONCLUSION: 1. Degenerative arthritic changes within the cervical spine as above. No acute fracture or destructive lesion is identified. Chest X-Ray 12/11/17 13:38 CONCLUSION: Mild airspace disease in left upper lobe and right lung base Otherwise stable chest Right Zmfjiz-b-Zxtv catheter remains in stable position. Head CT 12/11/17 13:38 CONCLUSION: 1. 3.7 x 5.1 cm mass involving the posterior aspect of the right temporal cortex and the right occipital cortex. There is surrounding vasogenic edema. This is highly suspicious for malignancy. Lesion is new compared to previous CT scan dated 04/23/2017. Abdomen/Pelvis CT 12/12/17 00:00 CONCLUSION: 1. Mild constipation. No acute findings. No evidence for metastatic disease to the abdomen and pelvis. Prior cholecystectomy. Chest CT 12/12/17 00:00 CONCLUSION: 1. When compared with 2015 there is no evidence for tumor recurrence. No new adenopathy or soft tissue mass. Scarring upper left lung possibly related to prior radiation. 2. Coronary artery calcifications. Prior cholecystectomy. Xabqpq-g-Juih in superior vena cava. Assessment and Plan - Plan 77-year-old male with PMH of squamous cell CA, dementia who presents the emergency room after he suffered a mechanical fall. S/p mechanical fall Brain mass hx of small cell lung ca s/p concurrent chemotherapy and radiation CT head 3.7 x 5.1 cm mass involving the posterior aspect of the right temporal cortex and the right occipital cortex. There is surrounding vasogenic edema. This is highly suspicious for malignancy. Lesion is new compared to previous CT scan dated 04/23/2017. CT cervical spine shows degenerative changes but no acute fracture or destructive lesion Oncology following, appreciate assistance. CT chest and abd/pelvis neg for moira CXR with no acute findings Neurosurgery consulted, appreciate assistance Continue on IV Decadron MRI brain scheduled for today Palliative care consulted for goals of care Hypertension Continue on home dose of Norvasc and Atenolol Clonidine prn with parameters Continue to monitor BP trend and adjust treatment accordingly Balance instability and cognitive dysfunction s/p cranial irradiation Fall precautions PT/OT eval/tx COPD, not in acute exacerbation continue with bronchodilator therapy Duonebs as needed continue to monitor respiratory status DVT ppx SCD/TEDs CI chemoppx at this time patient with brain mass Code Status: DNR Discussed Condition With: patient, nursing staff, Dr. Mao Discharge Planning: Not ready for discharge. Discharge pending Oncology and Neurosurgery clearance.
--- NOTE | 2017-12-12 10:29 | P.CONPAL ---
Consult Service: Palliative Care Requesting Physician: Monica Fonseca Reason for Consult: a. To assist with evaluation and management of symptoms including: pain, debility, anxiety b. To assist medical decision maker(s) with: better understanding of current medical conditions; weighing benefits/burdens of medical treatment options; making medical treatment decisions. Primary Care Provider: UNKNOWN History of Present Illness History of Present Illness: -- DRAFT This is a 77 yo male with hx small cell lung ca 2014 s/p chemo & radiation & prophylactic crania irradiation, anemia, dementia, COPD, falls, depression, who presented 12/11from [facility] after falling out of his wheelchair. He fell asleep in his wheelchair and fell forward and hit his head on the floor. He reported that he had a bump on his forehead. CT head showed 3.7 x 5.1 cm mass involving posterior right temporal and occipital cortex with surrounding vasogenic edema. CT chest and abd show no evidence metastatic disease. Neurosurgery was consulted. Oncology consulted, feel brain mass is consistent with metastatic cancer from the small cell lung cancer. MRI pending. Pt has seen Dr Dugan in the past. Per a progress note from 09/2017 if pt were to have recurrence of malignancy, would not be a candidate for any treatment and would need to consider hospice. At that time pt asked to defer his PET scan b/c he felt too weak, it was scheduled for 12/2017. Pt was also anemic and declined iron infusions, instead requesting oral iron. Pt was admitted in April for PNA and this admission included a psych consult for perceptual disturbances and agitation. Pt was having hallucinations at night and was started on the olanzapine. During this admission he had a head CT that did now show any brain masses. On my eval pt is resting in bed, sleeping. He is somewhat lethargic and drifts off during conversation. He is oriented x 3 but lacks insight. "My lover had me committed." He does admit that he had a fall, when asked. He admits mild pain on his left forehead, says that is where he fell. The pain is mild, intermittent, and dull and the onset was 2 days ago when he fell. He says he is intermittently anxious but cannot further qualify. He does not appear anxious during my eval. I inquired about depression but he did not answer my questions. He does have a flat affect. Function/Cognitive Trajectory: Has been confused in the last year with worsening in the last 3 months. Has been unsteady since brain irradiation in the last 3 years, has had multiple falls. Review of Systems unobtainable due to mental status (limited d/t lethargy, confusion. completed from chart, family) Constitutional: Reports daytime sleepiness, Reports fatigue Eyes: Denies blind spots Ears, Nose, Mouth, and Throat: Reports poor balance, Denies abnormal hearing Cardiovascular: Denies chest pain Respiratory: Denies coughing up blood Gastrointestinal: Denies abdominal pain, Denies vomiting Musculoskeletal: Reports abnormal walking, Reports decreased muscle mass Skin/Breast: Reports skin ulcer, Denies bleeding lesions Neurologic: Reports abnormal walking, Reports memory loss, Reports tingling/ numbness/burning sensations, Reports unsteadiness, Reports weakness Psychiatric: Reports anxiety, Reports confusion, Reports depression, Reports seeing things others do not see Hematologic/Lymphatic: Denies easy bleeding PMFSH - History History Provided By: Patient (+family hx CA; no family hx cancer), Family Member - Medical History Medical History: Medical History (Last Reviewed 12/12/17 @ 11:36 by Phyllis Donahue) Anemia COPD (chronic obstructive pulmonary disease) Dementia Difficulty walking Frequent falls Hyperlipidemia Hypertension Major depressive disorder Malignant neoplasm of upper lobe of lung Restless leg syndrome - Surgical History Surgical History: Surgical History (Last Updated 12/12/17 @ 12:17 by JC Plunkett) History of laminectomy Hx of cholecystectomy Hx of foot surgery - Social History I have reviewed the patient's Social History: Yes - Tobacco History Second Hand Smoke Exposure: No Tobacco Use In Past 30 Days: No Smoking Status: Former smoker Tobacco Type: Cigarettes - Alcohol History How Often Do You Have a Drink Containing Alcohol: Never (formerly consumed etoh , denies heavy use) - Substance Use History Substance History: No History of Abuse - Travel History Recent Travel in the [place] Within the Last 8 Weeks: No Recent Travel Out of the Country Within the Last 8 Weeks: No - Immunization History Tetanus Immunization: <5 Years Hx Influenza Vaccine This Season: Yes Medications and Allergies Active Medications: Active Medications Acetaminophen (Tylenol) 650 mg PO Q4H PRN PRN Reason: Temp > 100.4 Al Hydroxide/Mg Hydroxide (Milk Of Magnesia Liq) 30 ml PO Q12H PRN PRN Reason: Mild Constipation Albuterol (Duoneb Neb ([facility])) 1 ampul NEB Q8HR NEB [facility] Last Admin: 12/11/17 23:26 Dose: 1 ampul Amlodipine Besylate (Norvasc) 5 mg PO DAILY [facility] Last Admin: 12/12/17 08:23 Dose: 5 mg Atenolol (Tenormin) 100 mg PO DAILY [facility] Last Admin: 12/12/17 08:23 Dose: 100 mg Bisacodyl (Dulcolax Supp) 10 mg RECTAL DAILY PRN PRN Reason: SEVERE CONSITIPATION Budesonide/Formoterol Fumarate (Symbicort 160/4.5 Mcg Inh) 2 puff INH BID [facility] Last Admin: 12/12/17 08:24 Dose: 2 puff Clonidine HCl (Catapres) 0.1 mg PO Q6H PRN PRN Reason: SBP>180, DBP>95 Dexamethasone Sodium Phosphate (Decadron Inj) 4 mg IV.PUSH Q6HR [facility] Last Admin: 12/12/17 05:11 Dose: 4 mg Gabapentin (Neurontin) 300 mg PO BID [facility] Last Admin: 12/12/17 08:23 Dose: 300 mg Sodium Chloride (Ns Inj) 1,000 mls @ 42 mls/hr IV.CONT .[id number] [facility] Last Admin: 12/12/17 05:11 Dose: 100 mls/hr Lactulose (Lactulose Liq) 30 ml PO DAILY PRN PRN Reason: SEVERE CONSITIPATION Olanzapine (Zyprexa) 5 mg PO DAILY [facility] Last Admin: 12/12/17 08:23 Dose: 5 mg Ondansetron HCl (Zofran Inj) 4 mg IV.PUSH Q6H PRN PRN Reason: NAUSEA OR VOMITING Pravastatin Sodium (Pravachol) 20 mg PO DAILY [facility] Last Admin: 12/12/17 08:23 Dose: 20 mg Senna/Docusate Sodium (Roseann-Colace) 1 tab PO BID [facility] Last Admin: 12/12/17 08:23 Dose: 1 tab Sennosides (Senokot) 17.2 mg PO Q12H PRN PRN Reason: Moderate Constipation Sertraline HCl (Zoloft) 100 mg PO DAILY [facility] Last Admin: 12/12/17 08:23 Dose: 100 mg Sodium Chloride (Ns Flush) 2 ml IV.FLUSH PRN PRN PRN Reason: FLUSH AFTER USING IV ACCESS Allergies Allergy/AdvReac Type Severity Reaction Status Date / Time No Known Allergies Allergy Unknown Uncoded 04/23/17 11:23 Home Medications Medication Instructions Recorded Confirmed Type amlodipine 5 mg PO DAILY 12/11/17 12/11/17 History atenolol 100 mg PO DAILY 12/11/17 12/11/17 History budesonide-formoterol [Symbicort] 2 puff INHALATION BID 12/11/17 12/11/17 History calcium carbonate-vitamin D3 1 tab PO DAILY 12/11/17 12/11/17 History [Calcium 600 + D(3)] ferrous sulfate [Iron (ferrous 325 mg PO BID 12/11/17 12/11/17 History sulfate)] folic acid 0.4 mg PO DAILY 12/11/17 12/11/17 History gabapentin 300 mg PO BID 12/11/17 12/11/17 History ipratropium-albuterol 3 ml INHALATION Q8H 12/11/17 12/11/17 History olanzapine 5 mg PO DAILY 12/11/17 12/11/17 History olanzapine 15 mg PO HS 12/11/17 12/11/17 History pediatric gigmkxyb-aogt-edi 1 tab PO DAILY 12/11/17 12/11/17 History [Multi-Vitamins with Iron] potassium chloride 10 meq PO DAILY 12/11/17 12/11/17 History pravastatin 20 mg PO DAILY 12/11/17 12/11/17 History sertraline 100 mg PO DAILY 12/11/17 12/11/17 History zinc sulfate 220 mg PO DAILY 12/11/17 12/11/17 History Advance Directives Living Will: Yes Healthcare Surrogate: Yes Health Care Surrogate Name and Number: partner Osman Yuan Physical Exam Vital Signs: Vital Signs - 24 hr 12/11/17 13:23 12/11/17 16:18 12/11/17 19:20 Temperature 98.0 F 97.6 F Pulse Rate 50 L 62 69 Respiratory Rate 16 18 16 Blood Pressure 146/66 H 186/82 H Pulse Oximetry 92 L 94 L 96 12/11/17 20:06 12/11/17 21:47 12/11/17 23:28 Temperature 97.6 F Pulse Rate 74 60 97 H Respiratory Rate 18 18 15 Blood Pressure 189/83 H 157/69 H Pulse Oximetry 96 12/12/17 00:00 12/12/17 02:32 12/12/17 04:30 Temperature 97.6 F 99.0 F Pulse Rate 62 78 Respiratory Rate 18 Blood Pressure 135/76 187/86 H Pulse Oximetry 97 95 12/12/17 08:00 Temperature 97.8 F Pulse Rate 65 Respiratory Rate 14 Blood Pressure 159/74 H Pulse Oximetry 93 L I&O: Intake & Output 12/10/17 12/11/17 12/12/17 12/13/17 06:59 06:59 06:59 06:59 Intake Total 1600 / 1600 Balance 1600 / 1600 Weight 86.18 kg Physical Exam: CONSTITUTIONAL/GENERAL: frail appearing male, in NAD TUBES/LINES/DRAINS: port left chest SKIN: No jaundice, rashes. Sallow complexion. Ulceration left malleolus with surrounding erythema. No wounds seen anteriorly. Skin temperature appropriate. Not diaphoretic. HEAD: erythema and mild swelling left forehead. Normocephalic. EYES: PERRL. Extraocular motions intact. No scleral icterus. No injection or drainage. Fundi not examined. ENT: Hearing grossly normal. Nose without bleeding or purulent drainage. CARDIOVASCULAR: RRR + murmur. No gallops, or rubs. No JVD. Peripheral pulses symmetric. RESPIRATORY/CHEST: Symmetric, unlabored respirations. Clear to auscultation. Breath sounds equal bilaterally. No wheezes, rales, or rhonchi. GASTROINTESTINAL: Abdomen soft, non-tender, nondistended. No hepato-splenomegaly , or palpable masses. No guarding. Bowel sounds present. MUSCULOSKELETAL: Extremities without clubbing, cyanosis, or edema. No joint tenderness or effusion noted. No calf tenderness. No mottling or clubbing. NEUROLOGICAL: mild lethargy. Motor and sensory grossly within normal limits. Follows commands. Moves all extremities. PSYCHIATRIC: flat affect. poor insight. no apparent hallucinations or other psychotic thought process. Diagnostic Tests Laboratory: Laboratory Results - last 72 hr 12/11/17 12/11/17 12/11/17 16:35 16:35 16:35 WBC 7.1 RBC 4.71 Hgb 12.5 L Hct 38.2 L MCV 81.2 MCH 26.5 L MCHC 32.6 RDW 15.9 Plt Count 146 L MPV 8.7 Neut % (Auto) 59.2 Lymph % (Auto) 28.3 [place] % (Auto) 8.4 H Eos % (Auto) 3.6 Baso % (Auto) 0.5 Neut # (Auto) 4.2 Lymph # (Auto) 2.0 [place] # (Auto) 0.6 Eos # (Auto) 0.3 Baso # (Auto) 0.0 WBC Differential . Differential Comment Auto diff final PT 10.5 INR 1.0 Sodium 141 Potassium 4.2 Chloride 106 Carbon Dioxide 28.1 Anion Gap 7 BUN 22 H Creatinine 0.66 Estimated GFR Greater than 89 Random Glucose 81 Calcium 8.7 Total Bilirubin AST ALT Alkaline Phosphatase Total Protein Albumin 12/12/17 12/12/17 04:30 04:30 WBC 4.8 RBC 4.40 L Hgb 11.8 L Hct 35.7 L MCV 81.0 MCH 26.7 L MCHC 33.0 RDW 16.0 Plt Count 143 L MPV 8.6 Neut % (Auto) 83.2 H Lymph % (Auto) 15.1 [place] % (Auto) 1.1 Eos % (Auto) 0.2 Baso % (Auto) 0.4 Neut # (Auto) 4.0 Lymph # (Auto) 0.7 L [place] # (Auto) 0.1 Eos # (Auto) 0.0 Baso # (Auto) 0.0 WBC Differential . Differential Comment Auto diff final PT INR Sodium 143 Potassium 4.2 Chloride 106 Carbon Dioxide 28.8 Anion Gap 8 BUN 18 Creatinine 0.71 Estimated GFR Greater than 89 Random Glucose 124 H Calcium 8.5 Total Bilirubin 0.2 AST 15 ALT 17 Alkaline Phosphatase 67 Total Protein 6.5 Albumin 2.9 L Result Diagrams: 12/12/17 04:30 12/12/17 04:30 Imaging: ITS Impressions Cervical Spine CT 12/11/17 13:38 CONCLUSION: 1. Degenerative arthritic changes within the cervical spine as above. No acute fracture or destructive lesion is identified. Chest X-Ray 12/11/17 13:38 CONCLUSION: Mild airspace disease in left upper lobe and right lung base Otherwise stable chest Right Pmyezh-n-Sqog catheter remains in stable position. Head CT 12/11/17 13:38 CONCLUSION: 1. 3.7 x 5.1 cm mass involving the posterior aspect of the right temporal cortex and the right occipital cortex. There is surrounding vasogenic edema. This is highly suspicious for malignancy. Lesion is new compared to previous CT scan dated 04/23/2017. Abdomen/Pelvis CT 12/12/17 00:00 CONCLUSION: 1. Mild constipation. No acute findings. No evidence for metastatic disease to the abdomen and pelvis. Prior cholecystectomy. Chest CT 12/12/17 00:00 CONCLUSION: 1. When compared with 2015 there is no evidence for tumor recurrence. No new adenopathy or soft tissue mass. Scarring upper left lung possibly related to prior radiation. 2. Coronary artery calcifications. Prior cholecystectomy. Qvbyif-m-Aeoj in superior vena cava. Patient/Family Conference Present at Family Conference: pt's partner and [facility] Osman Family Conference Time: 20 Family Conference Location: Telephone Issues Discussed: * Palliative care role, purpose, approach * Additional medical, psychosocial, and spiritual history * Patients general health, functional status, and cognitive changes in the months leading up to the current hospitalization * family understanding of the current medical problems * family understanding of prognosis * Patients goals of care as best understood from advance directives and conversations -pt has stated in past he would not want to be on life support * Current medical treatment options and benefits/burdens of those options * Likely scenarios comparing ongoing aggressive care with a transition to comfort measures only * reviewed code status - DNR * Questions answered to the best of my ability * Palliative care contact information provided Goals pending but likely to be comfort oriented. [facility] acknowledges surgery, if an option, is not likely to improve the patient's quality of life. "We probably won't want to do anything aggressive like surgery." He would like to wait for the MRI and further oncology follow up to see what options there are. Introduced hospice. [facility] declined hospice consult but was receptive, "let's keep that in the back of our minds for now." Assessment and Plan - Disease Oriented Problem List (1) Dementia (2) Cranial irradiation (3) Brain tumor (4) COPD (chronic obstructive pulmonary disease) - Symptom Scale (1) Pain 0-10 Scale: Unable to quantify (2) Anxiety 0-10 Scale: Unable to quantify (3) Debility 0-10 Scale: Unable to quantify Pertinent Non-Medical Issues: Psychosocial: Originally from [place]. Been in [place] 6 years. Has 1 estranged daughter. Been 39 years. Spiritual: none Legal: Pt not capacitated to make decisions and he is unlikely to regain capacity. He has designated his partner Osman as his HCS. Ethical issues impacting care: none Important Contacts: Osman Yuan [phone] Prognosis: This is a wheelchair bound 77 yo male with hx small cell lung ca s/p chemo and radiation and cranial radiation, COPD, dementia who presented 12/11 after falling out of his wheelchair. He was found to have a new brain mass that is thought to be metastatic. He was previously told by his oncologist that should cancer return he will not be a candidate for treatment d/t his debility. Given his underlying comorbidities and debility, his prognosis is poor and he is likely to continue declining. Code Status: No Code DNR Plan: - LEGAL DECISON MAKER - pt is not capacitated to make decisions and is unlikely to regain that capacity. He has designated his partner Osman as HCS. - CODE STATUS- no code/DNR - GOALS - Goals pending but likely to be comfort oriented. [facility] acknowledges surgery, if an option, is not likely to improve the patient's quality of life. "We probably won't want to do anything aggressive like surgery." He would like to wait for the MRI and further oncology follow up to see what options there are. Introduced hospice. [facility] declined hospice consult but was receptive, "let' s keep that in the back of our minds for now." - SYMPTOMS - * pain - multifactorial - has neuropathy since cranial radiation, has mild left forehead pain from fall, has malleolar ulcer left leg. risk for pain from brain mass. denies pain on my eval. on gabapentin. has PRN apap, this has not been given. * debility - wheelchairbound, has had balance difficulties since cranial radiation 4 y ago. hx frequent falls. PT now following. Unlikely to improve. high risk for falls. * anxiety/depression - truck terminal manager. pt admits intermittent anxiety but cannot further qualify. no sign anxiety on my eval, does have flat affect. on olanzapine, zoloft. no further recs at this time. - Palliative care will continue to follow during hospital course as condition evolves, to assist patient/decision-maker with understanding of medical conditions, weighing benefits/burdens of treatment options, for clarification of goals of treatment. Additionally will assist with any symptoms of palliative concern Appreciation Thank you for the opportunity to participate in the care of Kiet Aubrey Yuan.
--- NOTE | 2017-12-12 14:11 | P.PNONC ---
Subjective Interval history: Afebrile Patient denies headache He is answering simple yes/no questions but does not open his eyes during exam Objective Vital Signs/Intake & Output: Vital Signs 12/11/17 16:18 12/11/17 19:20 12/11/17 20:06 Temperature 97.6 F Pulse Rate 62 69 74 Respiratory Rate 18 16 18 Blood Pressure 186/82 H 189/83 H Pulse Oximetry 94 L 96 12/11/17 21:47 12/11/17 23:28 12/12/17 00:00 Temperature 97.6 F 97.6 F Pulse Rate 60 97 H 62 Respiratory Rate 18 15 18 Blood Pressure 157/69 H 135/76 Pulse Oximetry 96 97 12/12/17 02:32 12/12/17 04:30 12/12/17 08:00 Temperature 99.0 F 97.8 F Pulse Rate 78 65 Respiratory Rate 18 18 14 Blood Pressure 187/86 H 159/74 H Pulse Oximetry 95 93 L 12/12/17 12:00 Temperature 98.2 F Pulse Rate 52 L Respiratory Rate 17 Blood Pressure 122/54 L Pulse Oximetry 90 L Intake & Output 12/11/17 12/12/17 12/12/17 18:59 06:59 18:59 Intake Total 1600 / 1600 Balance 1600 / 1600 Weight 190 lb 189 lb 15.91 oz Intake: IV 1600 / 1600 NS Inj 1,000 ML @ 100 mls/hr IV 1600 / 1600 .CONT .Q10H [facility] Rx#:[id number] Other: # Incontinent Voids 1 Date of Last Bowel Movement 12/10/17 12/10/17 Weight On Admission 190 lb 0.016 oz Result Diagrams: 12/12/17 04:30 12/12/17 04:30 Laboratory Results: Laboratory Results - last 24 hr 12/11/17 12/11/17 12/11/17 16:35 16:35 16:35 WBC 7.1 RBC 4.71 Hgb 12.5 L Hct 38.2 L MCV 81.2 MCH 26.5 L MCHC 32.6 RDW 15.9 Plt Count 146 L MPV 8.7 Neut % (Auto) 59.2 Lymph % (Auto) 28.3 [place] % (Auto) 8.4 H Eos % (Auto) 3.6 Baso % (Auto) 0.5 Neut # (Auto) 4.2 Lymph # (Auto) 2.0 [place] # (Auto) 0.6 Eos # (Auto) 0.3 Baso # (Auto) 0.0 WBC Differential . Differential Comment Auto diff final PT 10.5 INR 1.0 Sodium 141 Potassium 4.2 Chloride 106 Carbon Dioxide 28.1 Anion Gap 7 BUN 22 H Creatinine 0.66 Estimated GFR Greater than 89 Random Glucose 81 Calcium 8.7 Total Bilirubin AST ALT Alkaline Phosphatase Total Protein Albumin 12/12/17 12/12/17 04:30 04:30 WBC 4.8 RBC 4.40 L Hgb 11.8 L Hct 35.7 L MCV 81.0 MCH 26.7 L MCHC 33.0 RDW 16.0 Plt Count 143 L MPV 8.6 Neut % (Auto) 83.2 H Lymph % (Auto) 15.1 [place] % (Auto) 1.1 Eos % (Auto) 0.2 Baso % (Auto) 0.4 Neut # (Auto) 4.0 Lymph # (Auto) 0.7 L [place] # (Auto) 0.1 Eos # (Auto) 0.0 Baso # (Auto) 0.0 WBC Differential . Differential Comment Auto diff final PT INR Sodium 143 Potassium 4.2 Chloride 106 Carbon Dioxide 28.8 Anion Gap 8 BUN 18 Creatinine 0.71 Estimated GFR Greater than 89 Random Glucose 124 H Calcium 8.5 Total Bilirubin 0.2 AST 15 ALT 17 Alkaline Phosphatase 67 Total Protein 6.5 Albumin 2.9 L Imaging Studies: Impressions Cervical Spine CT 12/11/17 13:38 CONCLUSION: 1. Degenerative arthritic changes within the cervical spine as above. No acute fracture or destructive lesion is identified. Chest X-Ray 12/11/17 13:38 CONCLUSION: Mild airspace disease in left upper lobe and right lung base Otherwise stable chest Right [id number] catheter remains in stable position. Head CT 12/11/17 13:38 CONCLUSION: 1. 3.7 x 5.1 cm mass involving the posterior aspect of the right temporal cortex and the right occipital cortex. There is surrounding vasogenic edema. This is highly suspicious for malignancy. Lesion is new compared to previous CT scan dated 04/23/2017. Abdomen/Pelvis CT 12/12/17 00:00 CONCLUSION: 1. Mild constipation. No acute findings. No evidence for metastatic disease to the abdomen and pelvis. Prior cholecystectomy. Chest CT 12/12/17 00:00 CONCLUSION: 1. When compared with 2015 there is no evidence for tumor recurrence. No new adenopathy or soft tissue mass. Scarring upper left lung possibly related to prior radiation. 2. Coronary artery calcifications. Prior cholecystectomy. [id number]-[id number] in superior vena cava. Medications: Active Medications Generic Name Dose Route Start Last Admin Trade Name Freq PRN Reason Stop Dose Admin Albuterol 1 ampul 12/11/17 17:00 12/12/17 12:15 Duoneb Neb (Radha) NEB 1 ampul Q8HR NEB RADHA Administration Amlodipine Besylate 5 mg 12/12/17 09:00 12/12/17 08:23 Norvasc PO 5 mg DAILY RADHA Administration Atenolol 100 mg 12/12/17 09:00 12/12/17 08:23 Tenormin PO 100 mg DAILY RADHA Administration Budesonide/Formoterol Fumarate 2 puff 12/11/17 21:00 12/12/17 08:24 Symbicort 160/4.5 Mcg Inh INH 2 puff BID RADHA Administration Dexamethasone Sodium Phosphate 4 mg 12/12/17 00:00 12/12/17 12:22 Decadron Inj IV.PUSH 4 mg Q6HR RADHA Administration Gabapentin 300 mg 12/11/17 21:00 12/12/17 08:23 Neurontin PO 300 mg BID RADHA Administration Sodium Chloride 1,000 mls @ 42 mls/hr 12/11/17 16:30 12/12/17 13:32 Ns Inj IV.CONT Not Given .[id number] RADHA Olanzapine 5 mg 12/12/17 09:00 12/12/17 08:23 Zyprexa PO 5 mg DAILY RADHA Administration Pravastatin Sodium 20 mg 12/12/17 09:00 12/12/17 08:23 Pravachol PO 20 mg DAILY RADHA Administration Senna/Docusate Sodium 1 tab 12/11/17 21:00 12/12/17 08:23 Roseann-Colace PO 1 tab BID RADHA Administration Sertraline HCl 100 mg 12/12/17 09:00 12/12/17 08:23 Zoloft PO 100 mg DAILY RADHA Administration Objective Remarks: GENERAL: Chronically ill-appearing older gentleman resting in bed in no obvious distress SKIN: Warm and dry. HEAD: Normocephalic. EYES: No injection or drainage. NECK: Supple, trachea midline. CARDIOVASCULAR: Regular rate and rhythm without murmurs. RESPIRATORY: Clear anteriorly. Breathing unlabored at rest. GASTROINTESTINAL: Abdomen soft, non-tender, nondistended. EXTREMITIES: No cyanosis MUSCULOSKELETAL: Generalized weakness NEUROLOGICAL: Somewhat lethargic. Patient responds to simple yes and no questions appropriately. Assessment/Plan - Plan 77-year-old male with history of small cell lung cancer treated with chemotherapy and radiation in 2013, followed by prophylactic cranial irradiation. The patient was residing at [facility] and unfortunately fell forward out of his wheelchair hitting his head and was brought into the emergency room. CT of the head showed a 3.7 x 5.1 cm mass involving the posterior aspect of the right temporal cortex and the right occipital cortex. This is highly suspicious for metastatic small cell lung cancer. 1. Radiation oncology consulted; await recommendations 2. Appreciate palliative care involvement as patient appears to have a very poor prognosis. 3. Continue Decadron for vasogenic edema. - Attending Statement The exam, history, and the medical decision-making described in the above note were completed with the assistance of the mid-level provider. I reviewed and agree with the findings presented. I attest that I had a [id number] encounter with the patient on the same day, and personally performed and documented my assessment and findings in the medical record. Patient denies any headache. He is mildly confused. CT of the chest, abdomen and pelvis did not show evidence of recurrent disease or metastatic disease. The brain mass could be metastatic small cell carcinoma but cannot totally rule out primary brain neoplasm. If patient and family wants to be aggressive with treatment, will recommend resection of the brain mass or biopsy to obtain tissue diagnosis. He will also need palliative radiation. His overall prognosis is poor regardless of type of tumor. He will be a hospice candidate if family does not want aggressive treatment.
--- NOTE | 2017-12-12 17:40 | P.PNNS ---
Subjective Interval history: Pt awakens to voice. Denies headache. No current n/v. <Kiet Desai - Last Filed: 12/12/17 17:41> Physical Exam Vital signs: Vital Signs 12/11/17 19:20 12/11/17 20:06 12/11/17 21:47 Temperature 97.6 F Pulse Rate 69 74 60 Respiratory Rate 16 18 18 Blood Pressure 189/83 H 157/69 H Pulse Oximetry 96 96 12/11/17 23:28 12/12/17 00:00 12/12/17 02:32 Temperature 97.6 F Pulse Rate 97 H 62 Respiratory Rate 15 18 18 Blood Pressure 135/76 Pulse Oximetry 97 12/12/17 04:30 12/12/17 08:00 12/12/17 12:00 Temperature 99.0 F 97.8 F 98.2 F Pulse Rate 78 65 52 L Respiratory Rate 18 14 17 Blood Pressure 187/86 H 159/74 H 122/54 L Pulse Oximetry 95 93 L 90 L 12/12/17 16:00 Temperature 97.3 F L Pulse Rate 55 L Respiratory Rate 17 Blood Pressure 170/74 H Pulse Oximetry 95 Intake & Output 12/11/17 12/12/17 12/12/17 18:59 06:59 18:59 Intake Total 1600 / 1600 Balance 1600 / 1600 Weight 86.183 kg 86.18 kg Intake: IV 1600 / 1600 NS Inj 1,000 ML @ 100 mls/hr IV 1600 / 1600 .CONT .Q10H [facility] Rx#:[id number] Other: # Incontinent Voids 1 Date of Last Bowel Movement 12/10/17 12/10/17 Weight On Admission 86.183 kg - Constitutional no acute distress, cooperative - Routine HEENT Exam Head: Present: normocephalic, atraumatic Eye: Present: PERRL. Absent: conjunctival icterus ENT: Present: oropharynx clear - Routine Neck Exam Present: trachea midline - Routine Respiratory Exam Present: CTA bilaterally. Absent: respiratory distress, rhonchi, wheezes - Routine Cardiovascular Exam Present: RRR, S1, S2. Absent: murmur - Routine Abdominal Exam Present: soft, normoactive bowel sounds - Routine Skin Exam Absent: cyanosis, erythema - Routine Neurological Exam Present: moving all extremities, normal speech. Absent: motor deficit - Routine Psychiatric Exam Present: cooperative. Absent: anxious, agitated <Piazza,Kiet - Last Filed: 12/12/17 17:41> Vital signs: Vital Signs 12/12/17 20:00 12/13/17 00:00 12/13/17 00:08 Temperature 97.2 F L 97.6 F Pulse Rate 67 54 L 53 L Respiratory Rate 18 18 14 Blood Pressure 156/70 H 153/69 H Pulse Oximetry 94 L 94 L 12/13/17 04:00 12/13/17 08:00 12/13/17 12:00 Temperature 97.8 F 98.8 F 97.4 F L Pulse Rate 53 L 89 54 L Respiratory Rate 18 18 18 Blood Pressure 122/57 L 159/66 H 142/65 H Pulse Oximetry 91 L 93 L 94 L 12/13/17 15:28 12/13/17 16:00 Temperature 98 F Pulse Rate 53 L 58 L Respiratory Rate 16 18 Blood Pressure 130/62 Pulse Oximetry 95 Intake & Output 12/12/17 12/13/17 12/13/17 18:59 06:59 18:59 Intake Total 1000 / 1000 Balance 1000 / 1000 Intake: IV 1000 / 1000 NS Inj 1,000 ML @ 42 mls/hr IV. 1000 / 1000 CONT .[id number] [facility] Rx#:[id number] Other: # Voids 2 # Urine Diapers 1 Date of Last Bowel Movement 12/10/17 12/12/17 12/12/17 # Bowel Movements 1 <Antonio Kimball - Last Filed: 12/13/17 17:53> Assessment and Plan - Assessment (1) Anxiety Code(s): F41.9 - Anxiety disorder, unspecified Status: Acute (2) Brain tumor Code(s): D49.6 - Neoplasm of unspecified behavior of brain Status: Acute (3) COPD (chronic obstructive pulmonary disease) Code(s): J44.9 - Chronic obstructive pulmonary disease, unspecified Status: Acute (4) Cranial irradiation Status: Acute (5) Debility Code(s): R53.81 - Other malaise Status: Acute (6) Dementia Code(s): F03.90 - Unspecified dementia without behavioral disturbance Status: Acute (7) Pain Code(s): R52 - Pain, unspecified Status: Acute - Plan A: 77yoM with history of small cell ca. 5 years ago treated including whole brain XRT. Fell today and incidentally discovered to have a large right parieto -occipital mass on CT scan with vasogenic edema. Plan: MRI Brain with and without contrast has not been done yet. Continue with Decadron 4mg IV q6 Further plan depending on MRI results and discussion with pts . <Kiet Desai - Last Filed: 12/12/17 17:41> - Attending Attestation The exam, history, and the medical decision-making described in the above note were completed with the assistance of the mid-level provider. I reviewed and agree with the findings presented. I attest that I had a [id number] encounter with the patient on the same day, and personally performed and documented my assessment and findings in the medical record. We had a lengthy discussion with the patient as well as his significant other. He has a large right posterior temporal parietal area mass consistent with the metastases likely from his small cell lung cancer. His baseline condition is overall very poor which increases her risk for any surgical intervention with associated complications. They inquired about the risk from surgery which include , heart attack, stroke, hemorrhage, bleeding, worsening neurologic deficits, ventilator dependency among other complications. Accordingly they will contemplate on their options with further discussion with the oncology team. They will inform us should they elect to proceed with surgical intervention and are willing to accept the increased risk for complications. <Antonio Kimball - Last Filed: 12/13/17 17:53>
--- NOTE | 2017-12-13 09:28 | P.PN ---
Subjective Interval history: Follow-up on patient status post mechanical fall at home, brain mass. Patient seen and examined. Patient states he feels well. He denies any headache, visual disturbances, dizziness, numbness or tingling. He reports chronic weakness RLE that is unchanged. He denies any chest pain or shortness of breath. He denies any N/V or abdominal pain. Physical Exam Vital signs: Vital Signs 12/12/17 12:00 12/12/17 16:00 12/12/17 20:00 Temperature 98.2 F 97.3 F L 97.2 F L Pulse Rate 52 L 55 L 67 Respiratory Rate 17 17 18 Blood Pressure 122/54 L 170/74 H 156/70 H Pulse Oximetry 90 L 95 94 L 12/13/17 00:00 12/13/17 00:08 12/13/17 04:00 Temperature 97.6 F 97.8 F Pulse Rate 54 L 53 L 53 L Respiratory Rate 18 14 18 Blood Pressure 153/69 H 122/57 L Pulse Oximetry 94 L 91 L 12/13/17 08:00 Temperature 98.8 F Pulse Rate 89 Respiratory Rate 18 Blood Pressure 159/66 H Pulse Oximetry 93 L Intake & Output 12/12/17 12/13/17 12/13/17 18:59 06:59 18:59 Intake Total 1000 / 1000 Balance 1000 / 1000 Intake: IV 1000 / 1000 NS Inj 1,000 ML @ 42 mls/hr IV. 1000 / 1000 CONT .[id number] [facility] Rx#:[id number] Other: # Voids 2 # Urine Diapers 1 Date of Last Bowel Movement 12/10/17 12/12/17 # Bowel Movements 1 Narrative: GENERAL: WDWN elderly male patient, INAD. Awake and alert. Appears comfortable. Lying on stretcher awaiting MRI scan. SKIN: Warm and dry. No rash. HEAD: Normocephalic. Patient with abrasion to left forehead. EYES: Pupils equal and round. No scleral icterus. No injection or drainage. ENT: No nasal bleeding or discharge. Mucous membranes pink and moist. NECK: Trachea midline. CARDIOVASCULAR: Regular rate and rhythm. +Systolic murmur. RESPIRATORY: No accessory muscle use. Clear to auscultation. Breath sounds equal bilaterally. GASTROINTESTINAL: Abdomen soft, non-tender, nondistended. MUSCULOSKELETAL: Extremities without clubbing, cyanosis, or edema. No obvious deformities. NEUROLOGICAL: Awake and alert. No obvious cranial nerve deficits. Motor grossly within normal limits. Able to move all extremities spontaneously. Normal speech. PSYCHIATRIC: Appropriate mood and affect; insight and judgment normal. Results - Labs CBC & Chem 7: 12/12/17 04:30 12/12/17 04:30 Laboratory Results - last 24 hr 12/13/17 02:03 POC Glucose 93 Assessment and Plan - Plan 77-year-old male with PMH of squamous cell CA, dementia who presents the emergency room after he suffered a mechanical fall. S/p mechanical fall Brain mass hx of small cell lung ca s/p concurrent chemotherapy and radiation CT head 3.7 x 5.1 cm mass involving the posterior aspect of the right temporal cortex and the right occipital cortex. There is surrounding vasogenic edema. This is highly suspicious for malignancy. Lesion is new compared to previous CT scan dated 04/23/2017. CT cervical spine shows degenerative changes but no acute fracture or destructive lesion Oncology following, appreciate assistance. CT chest and abd/pelvis neg for moira. Radiation oncology consulted. CXR with no acute findings Neurosurgery consulted, appreciate assistance Continue on IV Decadron MRI brain scheduled for today Palliative care consulted for goals of care Hypertension Continue on home dose of Norvasc and Atenolol Clonidine prn with parameters Continue to monitor BP trend and adjust treatment accordingly Balance instability and cognitive dysfunction s/p cranial irradiation Fall precautions continue with PT/OT COPD, not in acute exacerbation continue with bronchodilator therapy Duonebs as needed continue to monitor respiratory status DVT ppx SCD/TEDs CI chemoppx at this time patient with brain mass Code Status: DNR Discussed Condition With: patient, nursing staff, Dr. Mao Discharge Planning: Not ready for discharge. Discharge pending Oncology and Neurosurgery clearance.
[2017-12-13] MEDS ORDERED: Gadobutrol PF 10 MMOL/10 ML Vial (for RAD) IV.SIG ONE (10:00)
--- NOTE | 2017-12-13 10:21 | MR ---
EXAM DATE: 12/13/2017 10:15 AM EDT AGE/SEX: 77 years / Male INDICATIONS: Metastatic disease. CLINICAL DATA: This is the patient's subsequent encounter. Patient reports that signs and symptoms h ave been present for 2 days and indicates a pain score of 0/10. MEDICAL/SURGICAL HISTORY: Carcinoma, lung. Cholecystectomy. Port placement. COMPARISON: [facility] [place], CT HEAD W/O CONTRAST, 12/11/2017. [facility] [place], CT BRAIN W/O CONTRAST, 04/23/2017. . TECHNIQUE: Multiplanar, multisequence examination of the brain was performed without and with 8 ml Ga davist (gadobutrol) contrast as a single exam dose. FINDINGS: There is no evidence for acute infarction. There is a heterogeneous signal intensity mass identified in the right temporal lobe with a large amount of surrounding vasogenic edema. There is avid enhancem ent following administration of intravenous contrast. The mass measures approximately 5 x 3.1 cm in A P transverse dimension on axial image 57 of series 18. There is moderate confluent increased FLAIR si gnal in the periventricular white matter and bilateral centrum semiovale most characteristic of chron ic microvascular ischemic disease. There is some blood products seen on susceptibility weighted imagi ng within the substance of the mass. No other masses are seen. The mass is intra-axial and on sagitta l weighted images does extend to the tentorium on coronal image 126 of series 101. There is also exte nsion to the inferior margin of the right temporal horn. CONCLUSION: 1. There is an avidly enhancing mass in the right temporal lobe identified. This is a new finding an d would be most suspicious for metastatic disease. 2. White matter disease is felt to be chronic in nature. Electronically signed by: Victor Manuel Valle MD 12/13/2017 10:19 AM EDT
[2017-12-13] MEDS: Sertraline 100 MG Tablet PO SCH (11:26)
[2017-12-13] MEDS: amLODIPine 5 MG Tablet PO SCH (11:27)
[2017-12-13] MEDS: Atenolol 100 MG Tablet PO SCH (11:27)
[2017-12-13] MEDS: Senna/Docusate Sodium 8.6/50 MG Tablet PO SCH ×2 (11:27→23:04)
[2017-12-13] MEDS: Budesonide-Formoterol 160/4.5 MCG 6 GM Inhaler INH SCH ×2 (11:27→23:04)
[2017-12-13] MEDS: Gabapentin 300 MG Capsule PO SCH ×2 (11:27→23:04)
[2017-12-13] MEDS: Sod Chloride 0.9% Inj 1,000 ML IV.CONT SCH (12:31)
--- NOTE | 2017-12-13 13:17 | P.PNONC ---
Subjective Interval history: Afebrile Patient seen earlier this morning after he just returned from MRI Patient's at the bedside Patient somewhat confused; states he saw Dr. Brand at a wedding Patient and his are waiting to speak with neurosurgery about results of MRI Objective Vital Signs/Intake & Output: Vital Signs 12/12/17 16:00 12/12/17 20:00 12/13/17 00:00 Temperature 97.3 F L 97.2 F L 97.6 F Pulse Rate 55 L 67 54 L Respiratory Rate 17 18 18 Blood Pressure 170/74 H 156/70 H 153/69 H Pulse Oximetry 95 94 L 94 L 12/13/17 00:08 12/13/17 04:00 12/13/17 08:00 Temperature 97.8 F 98.8 F Pulse Rate 53 L 53 L 89 Respiratory Rate 14 18 18 Blood Pressure 122/57 L 159/66 H Pulse Oximetry 91 L 93 L Intake & Output 12/12/17 12/13/17 12/13/17 18:59 06:59 18:59 Intake Total 1000 / 1000 Balance 1000 / 1000 Intake: IV 1000 / 1000 NS Inj 1,000 ML @ 42 mls/hr IV. 1000 / 1000 CONT .[id number] [facility] Rx#:[id number] Other: # Voids 2 # Urine Diapers 1 Date of Last Bowel Movement 12/10/17 12/12/17 # Bowel Movements 1 Result Diagrams: 12/12/17 04:30 12/12/17 04:30 Laboratory Results: Laboratory Results - last 24 hr 12/13/17 02:03 POC Glucose 93 Imaging Studies: Impressions Head MRI 12/13/17 00:00 There is no evidence for acute infarction. There is a heterogeneous signal intensity mass identified in the right temporal lobe with a large amount of surrounding vasogenic edema. There is avid enhancement following administration of intravenous contrast. The mass measures approximately 5 x 3.1 cm in AP transverse dimension on axial image 57 of series 18. There is moderate confluent increased FLAIR signal in the periventricular white matter and bilateral centrum semiovale most characteristic of chronic microvascular ischemic disease. There is some blood products seen on susceptibility weighted imaging within the substance of the mass. No other masses are seen. The mass is intra-axial and on sagittal weighted images does extend to the tentorium on coronal image 126 of series 101. There is also extension to the inferior margin of the right temporal horn. CONCLUSION: 1. There is an avidly enhancing mass in the right temporal lobe identified. This is a new finding and would be most suspicious for metastatic disease. 2. White matter disease is felt to be chronic in nature. Medications: Active Medications Generic Name Dose Route Start Last Admin Trade Name Freq PRN Reason Stop Dose Admin Albuterol 1 ampul 12/11/17 17:00 12/13/17 08:16 Duoneb Neb (Radha) NEB Not Given Q8HR NEB RADHA Amlodipine Besylate 5 mg 12/12/17 09:00 12/13/17 11:27 Norvasc PO 5 mg DAILY RADHA Administration Atenolol 100 mg 12/12/17 09:00 12/13/17 11:27 Tenormin PO 100 mg DAILY RADHA Administration Budesonide/Formoterol Fumarate 2 puff 12/11/17 21:00 12/13/17 11:27 Symbicort 160/4.5 Mcg Inh INH 2 puff BID RADHA Administration Dexamethasone Sodium Phosphate 4 mg 12/12/17 00:00 12/13/17 12:30 Decadron Inj IV.PUSH 4 mg Q6HR RADHA Administration Gabapentin 300 mg 12/11/17 21:00 12/13/17 11:27 Neurontin PO 300 mg BID RADHA Administration Sodium Chloride 1,000 mls @ 42 mls/hr 12/11/17 16:30 12/13/17 12:31 Ns Inj IV.CONT 42 mls/hr .[id number] RADHA Administration Olanzapine 5 mg 12/12/17 09:00 12/13/17 11:26 Zyprexa PO 5 mg DAILY RADHA Administration Pravastatin Sodium 20 mg 12/12/17 09:00 12/13/17 11:27 Pravachol PO 20 mg DAILY RADHA Administration Senna/Docusate Sodium 1 tab 12/11/17 21:00 12/13/17 11:27 Roseann-Colace PO 1 tab BID RADHA Administration Sertraline HCl 100 mg 12/12/17 09:00 12/13/17 11:26 Zoloft PO 100 mg DAILY RADHA Administration Tramadol HCl 50 mg 12/12/17 10:41 12/12/17 21:11 Ultram PO 50 mg Q8H PRN Administration PAIN SCALE 1 TO 10 Objective Remarks: GENERAL: Chronically ill-appearing older gentleman sitting on side of bed in no distress SKIN: Warm and dry. HEAD: Normocephalic. EYES: No injection or drainage. NECK: Supple, trachea midline. CARDIOVASCULAR: Regular rate and rhythm without murmurs. RESPIRATORY: Clear anteriorly. Breathing unlabored at rest. GASTROINTESTINAL: Abdomen soft, non-tender, nondistended. EXTREMITIES: No cyanosis MUSCULOSKELETAL: Generalized weakness NEUROLOGICAL: Awake and alert but confused. Follows commands. Assessment/Plan - Plan 77-year-old male with history of small cell lung cancer treated with chemotherapy and radiation in 2013, followed by prophylactic cranial irradiation. The patient was residing at [facility] and unfortunately fell forward out of his wheelchair hitting his head and was brought into the emergency room. CT of the head showed a 3.7 x 5.1 cm mass involving the posterior aspect of the right temporal cortex and the right occipital cortex. This is highly suspicious for metastatic small cell lung cancer. 1. Recommend resection with radiation if wishes are aggressive. Hospice if not. Patient overall has poor prognosis. 2. Await neuro surgery recommendations as to whether or not mass is resectable. The patient and his spouse still seem to be considering aggressive treatment versus hospice. 3. Continue Decadron for vasogenic edema. - Attending Statement The exam, history, and the medical decision-making described in the above note were completed with the assistance of the mid-level provider. I reviewed and agree with the findings presented. I attest that I had a [id number] encounter with the patient on the same day, and personally performed and documented my assessment and findings in the medical record. Patient is still confused. He denies any headache. MRI showed a large [address] of the chest, abdomen and pelvis did not show any recurrent disease or metastatic disease. Recommend resection of the brain mass or biopsy to get tissue diagnosis if patient and family wishes to be aggressive. If not I would recommend hospice support. His overall prognosis is poor.
--- NOTE | 2017-12-13 15:38 | P.DIET ---
Nutritional Evaluation Type of nutrition evaluation: initial Nutrition screening: Weight Loss > 10 lbs (Reported weight loss of 25# in the last month) Subjective Subjective Comments: Ate 75% of his lunch. Objective - Diagnosis Intracranial Mass with vasogenic edema - Objective % IBW: 106 (IBW = 178#) Body Weight Used for Calculations: Actual (86.1 kg) Energy Needs - Lower Range (kCal/kg): 28 Energy Needs - Upper Range (kCal/kg): 32 Lower Limit kCal/kg (kCals): 2,411 Upper Limit kCal/kg (kCals): 2,755 Lower Limit Protein Factor (Grams per Kg): 1.0 Upper Limit Protein Factor (Grams per Kg): 1.5 Lower Protein Needs (Protein): 86 Upper Protein Needs (Protein): 129 Dietitian Reviewed in Medical Record: Current diet, Curent medications, Intake & Output, Labs, Medical history Diet Order: Heart Healthy Oral Diet Intake Amount: Good 75-90% Assessment Assessment: Pt is at high nutrition risk 2' to dx and unintentional weight loss. BMI = 25.8. Pt's po intake is good at this time. Will send Ensure Enlive for additional nutrition. Each 8 oz serving provides 350 kcals and [address] will monitor acceptance. Recommendations: 1. Liberalize diet to Regular 2. Ensure Enlive bid Dietitian to Monitor: Lab values, Supplement acceptance, Intake & Output, Diet tolerance, Weight change, PO Intake
[2017-12-13] MEDS: Polyethylene Glycol 3350 17 GM Packet PO SCH (17:34)
--- NOTE | 2017-12-13 19:47 | P.PNNS ---
Subjective Interval history: Pt awake and alert. Denies headache. No N/v. MRI of the brain reviewed with Dr. Kimball and reveals a 5 x 3.1 right temporal lobe mass with surrounding vasogenic edema. <Kiet Desai - Last Filed: 12/13/17 19:33> Physical Exam Vital signs: Vital Signs 12/12/17 20:00 12/13/17 00:00 12/13/17 00:08 Temperature 97.2 F L 97.6 F Pulse Rate 67 54 L 53 L Respiratory Rate 18 18 14 Blood Pressure 156/70 H 153/69 H Pulse Oximetry 94 L 94 L 12/13/17 04:00 12/13/17 08:00 12/13/17 12:00 Temperature 97.8 F 98.8 F 97.4 F L Pulse Rate 53 L 89 54 L Respiratory Rate 18 18 18 Blood Pressure 122/57 L 159/66 H 142/65 H Pulse Oximetry 91 L 93 L 94 L 12/13/17 15:28 12/13/17 16:00 Temperature 98 F Pulse Rate 53 L 58 L Respiratory Rate 16 18 Blood Pressure 130/62 Pulse Oximetry 95 Intake & Output 12/13/17 12/13/17 12/14/17 06:59 18:59 06:59 Intake Total 1000 / 1000 720 / 720 Balance 1000 / 1000 720 / 720 Intake: IV 1000 / 1000 NS Inj 1,000 ML @ 42 mls/hr IV. 1000 / 1000 CONT .[id number] [facility] Rx#:[id number] Oral 720 / 720 Other: # Incontinent Voids 3 # Urine Diapers 1 Date of Last Bowel Movement 12/12/17 12/12/17 - Constitutional no acute distress, average body habitus - Routine HEENT Exam Head: Present: normocephalic Eye: Present: PERRL (Pupils 3mm bilaterally reactive bilaterally.). Absent: conjunctival icterus ENT: Present: oropharynx clear - Routine Neck Exam Present: supple - Routine Respiratory Exam Present: CTA bilaterally. Absent: respiratory distress, rhonchi, wheezes - Routine Cardiovascular Exam Present: RRR, S1, S2, murmur (2/6 Systolic ejection murmur.) - Routine Abdominal Exam Present: soft, normoactive bowel sounds. Absent: distended, firm - Routine Skin Exam Absent: cyanosis, erythema - Routine Neurological Exam Present: alert, moving all extremities, normal speech. Absent: motor deficit - Routine Psychiatric Exam Present: normal affect, cooperative. Absent: agitated <Kiet Desai - Last Filed: 12/13/17 19:33> Vital signs: Vital Signs 12/13/17 12:00 12/13/17 15:28 12/13/17 16:00 Temperature 97.4 F L 98 F Pulse Rate 54 L 53 L 58 L Respiratory Rate 18 16 18 Blood Pressure 142/65 H 130/62 Pulse Oximetry 94 L 95 12/13/17 20:00 12/13/17 21:24 12/14/17 04:00 Temperature 98.1 F 97.3 F L Pulse Rate 82 54 L Respiratory Rate 20 18 Blood Pressure 110/55 L 199/98 H Pulse Oximetry 99 95 95 12/14/17 08:32 Temperature 97.6 F Pulse Rate 53 L Respiratory Rate 18 Blood Pressure 166/75 H Pulse Oximetry 92 L Intake & Output 12/13/17 12/14/17 12/14/17 18:59 06:59 18:59 Intake Total 720 / 720 240 / 240 Balance 720 / 720 240 / 240 Weight 86.1 kg Intake: Oral 720 / 720 240 / 240 Other: # Voids 1 # Incontinent Voids 3 Date of Last Bowel Movement 12/12/17 12/13/17 <Antonio Kimball - Last Filed: 12/14/17 08:51> Assessment and Plan - Assessment (1) Anxiety Code(s): F41.9 - Anxiety disorder, unspecified Status: Acute (2) Brain tumor Code(s): D49.6 - Neoplasm of unspecified behavior of brain Status: Acute (3) COPD (chronic obstructive pulmonary disease) Code(s): J44.9 - Chronic obstructive pulmonary disease, unspecified Status: Acute (4) Cranial irradiation Status: Acute (5) Debility Code(s): R53.81 - Other malaise Status: Acute (6) Dementia Code(s): F03.90 - Unspecified dementia without behavioral disturbance Status: Acute (7) Pain Code(s): R52 - Pain, unspecified Status: Acute - Plan A: 77yoM with history of small cell ca. 5 years ago treated including whole brain XRT. Fell today and incidentally discovered to have a large right parieto -occipital mass on CT scan with vasogenic edema. MRI of the brain confirms a 5 x 3.1cm right temporal lobe mass with surrounding vasogenic edema. Plan: Dr. Kimball and I have examined the patient, reviewed the MRI of the brain, and discussed the findings with the patient and his at the bedside. Pt has a previous diagnosis of small cell carcinoma and this likely represents a metastasis. We would recommend radiation oncology evaluation to see if pt is a candidate for more radiation therapy to the mass. Surgery would carry moderate risks for complications and we also discussed those risks with the patient. Continue with Decadron 4mg IV q6 <Kiet Desai - Last Filed: 12/13/17 19:33> - Attending Attestation The exam, history, and the medical decision-making described in the above note were completed with the assistance of the mid-level provider. I reviewed and agree with the findings presented. I attest that I had a [id number] encounter with the patient on the same day, and personally performed and documented my assessment and findings in the medical record. <Antonio Kimball - Last Filed: 12/14/17 08:51>
--- NOTE | 2017-12-14 07:52 | P.PNONC ---
Subjective Interval history: Patient was restrained overnight. He was pulling out his IV. He denies any headache or visual changes. He denies any chest pain or shortness of breath. He denies any pain. Objective Vital Signs/Intake & Output: Vital Signs 12/13/17 08:00 12/13/17 12:00 12/13/17 15:28 Temperature 98.8 F 97.4 F L Pulse Rate 89 54 L 53 L Respiratory Rate 18 18 16 Blood Pressure 159/66 H 142/65 H Pulse Oximetry 93 L 94 L 12/13/17 16:00 12/13/17 20:00 12/13/17 21:24 Temperature 98 F 98.1 F Pulse Rate 58 L 82 Respiratory Rate 18 20 Blood Pressure 130/62 110/55 L Pulse Oximetry 95 99 95 12/14/17 04:00 Temperature 97.3 F L Pulse Rate 54 L Respiratory Rate 18 Blood Pressure 199/98 H Pulse Oximetry 95 Intake & Output 12/13/17 12/14/17 12/14/17 18:59 06:59 18:59 Intake Total 720 / 720 240 / 240 Balance 720 / 720 240 / 240 Weight 86.1 kg Intake: Oral 720 / 720 240 / 240 Other: # Voids 1 # Incontinent Voids 3 Date of Last Bowel Movement 12/12/17 12/13/17 Result Diagrams: 12/12/17 04:30 12/12/17 04:30 Imaging Studies: Impressions Head MRI 12/13/17 00:00 There is no evidence for acute infarction. There is a heterogeneous signal intensity mass identified in the right temporal lobe with a large amount of surrounding vasogenic edema. There is avid enhancement following administration of intravenous contrast. The mass measures approximately 5 x 3.1 cm in AP transverse dimension on axial image 57 of series 18. There is moderate confluent increased FLAIR signal in the periventricular white matter and bilateral centrum semiovale most characteristic of chronic microvascular ischemic disease. There is some blood products seen on susceptibility weighted imaging within the substance of the mass. No other masses are seen. The mass is intra-axial and on sagittal weighted images does extend to the tentorium on coronal image 126 of series 101. There is also extension to the inferior margin of the right temporal horn. CONCLUSION: 1. There is an avidly enhancing mass in the right temporal lobe identified. This is a new finding and would be most suspicious for metastatic disease. 2. White matter disease is felt to be chronic in nature. Medications: Active Medications Generic Name Dose Route Start Last Admin Trade Name Freq PRN Reason Stop Dose Admin Albuterol 1 ampul 12/11/17 17:00 12/14/17 00:19 Duoneb Neb (Radha) NEB Not Given Q8HR NEB RADHA Amlodipine Besylate 5 mg 12/12/17 09:00 12/13/17 11:27 Norvasc PO 5 mg DAILY RADHA Administration Atenolol 100 mg 12/12/17 09:00 12/13/17 11:27 Tenormin PO 100 mg DAILY RADHA Administration Budesonide/Formoterol Fumarate 2 puff 12/11/17 21:00 12/13/17 23:04 Symbicort 160/4.5 Mcg Inh INH Not Given BID RADHA Clonidine HCl 0.1 mg 12/12/17 09:04 12/14/17 04:08 Catapres PO 0.1 mg Q6H PRN Administration SBP>180, DBP>95 Dexamethasone Sodium Phosphate 4 mg 12/12/17 00:00 12/14/17 06:31 Decadron Inj IV.PUSH 4 mg Q6HR RADHA Administration Gabapentin 300 mg 12/11/17 21:00 12/13/17 23:04 Neurontin PO Not Given BID RADHA Sodium Chloride 1,000 mls @ 42 mls/hr 12/11/17 16:30 12/13/17 12:31 Ns Inj IV.CONT 42 mls/hr .[id number] RADHA Administration Olanzapine 5 mg 12/12/17 09:00 12/13/17 11:26 Zyprexa PO 5 mg DAILY RADHA Administration Polyethylene Glycol 17 gm 12/13/17 13:45 12/13/17 17:34 Miralax PO 17 gm DAILY RADHA Administration Pravastatin Sodium 20 mg 12/12/17 09:00 12/13/17 11:27 Pravachol PO 20 mg DAILY RADHA Administration Senna/Docusate Sodium 1 tab 12/11/17 21:00 12/13/17 23:04 Roseann-Colace PO Not Given BID RADHA Sertraline HCl 100 mg 12/12/17 09:00 12/13/17 11:26 Zoloft PO 100 mg DAILY RADHA Administration Tramadol HCl 50 mg 12/12/17 10:41 12/12/17 21:11 Ultram PO 50 mg Q8H PRN Administration PAIN SCALE 1 TO 10 Objective Remarks: GENERAL: Well-nourished, well-developed patient. SKIN: Warm and dry. HEAD: Normocephalic. EYES: No scleral icterus. No injection or drainage. NECK: Supple, trachea midline. No JVD or lymphadenopathy. LYMPHATIC: No adenopathy. CARDIOVASCULAR: Regular rate and rhythm without murmurs. RESPIRATORY: Breath sounds equal bilaterally. No accessory muscle use. GASTROINTESTINAL: Abdomen soft, non-tender, nondistended. EXTREMITIES: No cyanosis, or edema. MUSCULOSKELETAL: Adequate muscle tone. NEUROLOGICAL: No obvious focal deficit. Episode of confusion. PSYCHIATRIC: Is able to answer questions appropriately. But has episode of confusion. 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 The patient was residing at [facility] and unfortunately fell forward out of his wheelchair hitting his head and was brought into the emergency room. CT of the head showed a 3.7 x 5.1 cm mass involving the posterior aspect of the right temporal cortex and the right occipital cortex. This is highly suspicious for metastatic small cell lung cancer. However CT of the chest, abdomen and pelvis did not show any recurrent disease or metastatic disease. We cannot totally rule out primary SHOE STITCHER neoplasm. 1. Recommend resection with radiation if wishes are aggressive. Hospice if not. Patient overall has poor prognosis. Radiation oncology was consulted. 2. Await neuro surgery recommendations as to whether or not mass is resectable. The patient and his spouse still seem to be considering aggressive treatment versus hospice. 3. Continue Decadron for vasogenic edema.
--- NOTE | 2017-12-14 08:08 | P.PN ---
Subjective Interval history: Follow-up on patient status post mechanical fall at home, brain mass. Patient seen and examined. Patient denies any acute medical complaints. His is at the bedside. Did have issues with sundowning overnight and required restraints. Cognition improved this morning. He denies any dizziness, headache , new weakness, numbness/tingling or visual disturbances. Denies any chest pain or shortness of breath. Physical Exam Vital signs: Vital Signs 12/13/17 12:00 12/13/17 15:28 12/13/17 16:00 Temperature 97.4 F L 98 F Pulse Rate 54 L 53 L 58 L Respiratory Rate 18 16 18 Blood Pressure 142/65 H 130/62 Pulse Oximetry 94 L 95 12/13/17 20:00 12/13/17 21:24 12/14/17 04:00 Temperature 98.1 F 97.3 F L Pulse Rate 82 54 L Respiratory Rate 20 18 Blood Pressure 110/55 L 199/98 H Pulse Oximetry 99 95 95 Intake & Output 12/13/17 12/14/17 12/14/17 18:59 06:59 18:59 Intake Total 720 / 720 240 / 240 Balance 720 / 720 240 / 240 Weight 86.1 kg Intake: Oral 720 / 720 240 / 240 Other: # Voids 1 # Incontinent Voids 3 Date of Last Bowel Movement 12/12/17 12/13/17 Narrative: GENERAL: WDWN elderly male patient, INAD. Awake and alert. Appears comfortable. Sitting up on bedside chair. at the bedside. SKIN: Warm and dry. No rash. HEENT: Normocephalic. Patient with abrasion to left forehead. Pupils equal and round. No scleral icterus. No injection or drainage. No nasal bleeding or discharge. Mucous membranes pink and moist. NECK: Trachea midline. CARDIOVASCULAR: Regular rate and rhythm. +Systolic murmur. RESPIRATORY: No accessory muscle use. Clear to auscultation. Breath sounds equal bilaterally. GASTROINTESTINAL: Abdomen soft, non-tender, nondistended. MUSCULOSKELETAL: Extremities without clubbing, cyanosis, or edema. No obvious deformities. NEUROLOGICAL: Awake and alert. No obvious cranial nerve deficits. Motor grossly within normal limits. Able to move all extremities spontaneously. Normal speech. PSYCHIATRIC: Appropriate mood and affect; insight and judgment normal. Results - Labs CBC & Chem 7: 12/12/17 04:30 12/12/17 04:30 - Imaging Impressions Head MRI 12/13/17 00:00 There is no evidence for acute infarction. There is a heterogeneous signal intensity mass identified in the right temporal lobe with a large amount of surrounding vasogenic edema. There is avid enhancement following administration of intravenous contrast. The mass measures approximately 5 x 3.1 cm in AP transverse dimension on axial image 57 of series 18. There is moderate confluent increased FLAIR signal in the periventricular white matter and bilateral centrum semiovale most characteristic of chronic microvascular ischemic disease. There is some blood products seen on susceptibility weighted imaging within the substance of the mass. No other masses are seen. The mass is intra-axial and on sagittal weighted images does extend to the tentorium on coronal image 126 of series 101. There is also extension to the inferior margin of the right temporal horn. CONCLUSION: 1. There is an avidly enhancing mass in the right temporal lobe identified. This is a new finding and would be most suspicious for metastatic disease. 2. White matter disease is felt to be chronic in nature. Assessment and Plan - Plan 77-year-old male with PMH of squamous cell CA, dementia who presents the emergency room after he suffered a mechanical fall. S/p mechanical fall Brain mass hx of small cell lung ca s/p concurrent chemotherapy and radiation CT head 3.7 x 5.1 cm mass involving the posterior aspect of the right temporal cortex and the right occipital cortex. There is surrounding vasogenic edema. This is highly suspicious for malignancy. Lesion is new compared to previous CT scan dated 04/23/2017. CT cervical spine shows degenerative changes but no acute fracture or destructive lesion MRI brain shows enhancing mass in right temporal lobe suspicious for metastatic disease Oncology following, appreciate assistance. Recommends resection with radiation if patient wishes aggressive treatment, hospice if not. Poor prognosis. Radiation oncology consulted Neurosurgery consulted, appreciate assistance Continue on IV Decadron Palliative care consulted for goals of care Hypertension, now hypotensive, asymptomatic Bradycardia Continue on home dose of Norvasc. Decrease home dose of Atenolol to 50mg daily with hold parameters Clonidine prn with parameters Continue to monitor BP trend and adjust treatment accordingly Balance instability and cognitive dysfunction s/p cranial irradiation Fall precautions continue with PT/OT COPD, not in acute exacerbation continue with bronchodilator therapy Duonebs as needed continue to monitor respiratory status DVT ppx SCD/TEDs CI chemoppx at this time patient with brain mass Code Status: DNR Discussed Condition With: patient, nursing staff, Dr. Mao Discharge Planning: Not ready for discharge. Discharge pending Oncology and Neurosurgery clearance.
[2017-12-14] MEDS: Atenolol 100 MG Tablet PO SCH (09:31)
[2017-12-14] MEDS: Gabapentin 300 MG Capsule PO SCH ×2 (09:32→23:29)
[2017-12-14] MEDS: Senna/Docusate Sodium 8.6/50 MG Tablet PO SCH ×2 (09:32→23:29)
[2017-12-14] MEDS: Sertraline 100 MG Tablet PO SCH (09:32)
[2017-12-14] MEDS: amLODIPine 5 MG Tablet PO SCH (09:32)
[2017-12-14] MEDS: Polyethylene Glycol 3350 17 GM Packet PO SCH (09:34)
[2017-12-14] MEDS: Budesonide-Formoterol 160/4.5 MCG 6 GM Inhaler INH SCH ×2 (09:34→23:29)
[2017-12-14] MEDS: Sod Chloride 0.9% Inj 1,000 ML IV.CONT SCH (12:59)
[2017-12-14] MEDS ORDERED: Atenolol 100 MG Tablet PO SCH (15:00)
--- NOTE | 2017-12-14 15:08 | P.PNNS ---
Subjective Interval history: Pt awake and alert. Sitting up in chair. He is confused. Doesn't remember me from last night. not at bedside currently. He denies headaches, nausea , vomiting, weakness. <Kiet Desai - Last Filed: 12/14/17 14:59> Physical Exam Vital signs: Vital Signs 12/13/17 15:28 12/13/17 16:00 12/13/17 20:00 Temperature 98 F 98.1 F Pulse Rate 53 L 58 L 82 Respiratory Rate 16 18 20 Blood Pressure 130/62 110/55 L Pulse Oximetry 95 99 12/13/17 21:24 12/14/17 04:00 12/14/17 08:32 Temperature 97.3 F L 97.6 F Pulse Rate 54 L 53 L Respiratory Rate 18 18 Blood Pressure 199/98 H 166/75 H Pulse Oximetry 95 95 92 L 12/14/17 08:51 12/14/17 12:03 Temperature 98.4 F Pulse Rate 57 L 54 L Respiratory Rate 17 18 Blood Pressure 106/54 L Pulse Oximetry 96 Intake & Output 12/13/17 12/14/17 12/14/17 18:59 06:59 18:59 Intake Total 720 / 720 240 / 240 Balance 720 / 720 240 / 240 Weight 86.1 kg Intake: Oral 720 / 720 240 / 240 Other: # Voids 1 # Incontinent Voids 3 Date of Last Bowel Movement 12/12/17 12/13/17 12/14/17 - Constitutional no acute distress, average body habitus, cooperative - Routine HEENT Exam Head: Present: normocephalic, atraumatic Eye: Present: PERRL. Absent: conjunctival icterus ENT: Present: oropharynx clear - Routine Neck Exam Present: trachea midline - Routine Respiratory Exam Present: CTA bilaterally. Absent: respiratory distress, rhonchi, wheezes - Routine Cardiovascular Exam Present: RRR, S1, S2. Absent: murmur - Routine Abdominal Exam Present: soft, normoactive bowel sounds. Absent: distended - Routine Skin Exam Absent: cyanosis, erythema - Routine Neurological Exam Present: alert, oriented X3, altered mental status (Poor memory. Pt awake and alert and pleasant.), moving all extremities, normal speech. Absent: motor deficit - Routine Psychiatric Exam Present: normal affect, cooperative. Absent: anxious, agitated <Kiet Desai - Last Filed: 12/14/17 14:59> Vital signs: Vital Signs 12/13/17 15:28 12/13/17 16:00 12/13/17 20:00 Temperature 98 F 98.1 F Pulse Rate 53 L 58 L 82 Respiratory Rate 16 18 20 Blood Pressure 130/62 110/55 L Pulse Oximetry 95 99 12/13/17 21:24 12/14/17 04:00 12/14/17 08:32 Temperature 97.3 F L 97.6 F Pulse Rate 54 L 53 L Respiratory Rate 18 18 Blood Pressure 199/98 H 166/75 H Pulse Oximetry 95 95 92 L 12/14/17 08:51 12/14/17 12:03 Temperature 98.4 F Pulse Rate 57 L 54 L Respiratory Rate 17 18 Blood Pressure 106/54 L Pulse Oximetry 96 Intake & Output 12/13/17 12/14/17 12/14/17 18:59 06:59 18:59 Intake Total 720 / 720 240 / 240 Balance 720 / 720 240 / 240 Weight 86.1 kg Intake: Oral 720 / 720 240 / 240 Other: # Voids 1 # Incontinent Voids 3 Date of Last Bowel Movement 12/12/17 12/13/17 12/14/17 <Antonio Kimball - Last Filed: 12/14/17 15:14> Assessment and Plan - Assessment (1) Anxiety Code(s): F41.9 - Anxiety disorder, unspecified Status: Acute (2) Brain tumor Code(s): D49.6 - Neoplasm of unspecified behavior of brain Status: Acute (3) COPD (chronic obstructive pulmonary disease) Code(s): J44.9 - Chronic obstructive pulmonary disease, unspecified Status: Acute (4) Cranial irradiation Status: Acute (5) Debility Code(s): R53.81 - Other malaise Status: Acute (6) Dementia Code(s): F03.90 - Unspecified dementia without behavioral disturbance Status: Acute (7) Pain Code(s): R52 - Pain, unspecified Status: Acute - Plan A: 77yoM with history of small cell ca. 5 years ago treated including whole brain XRT. Fell today and incidentally discovered to have a large right parieto -occipital mass on CT scan with vasogenic edema. MRI of the brain confirms a 5 x 3.1cm right temporal lobe mass with surrounding vasogenic edema. Plan: We have discussed the findings with the patient and his at the bedside on 12/13/17. Pt has a previous diagnosis of small cell carcinoma and this likely represents a metastasis. If the patient and decide to be aggressive than we would recommend a craniotomy for mass resection and would be done next week possibly Sunday. and pt were going to think about their options and inform us. Continue with Decadron 4mg IV q6 Continue to get oob with assistance. <Kiet Desai - Last Filed: 12/14/17 14:59> - Attending Attestation The exam, history, and the medical decision-making described in the above note were completed with the assistance of the mid-level provider. I reviewed and agree with the findings presented. I attest that I had a [id number] encounter with the patient on the same day, and personally performed and documented my assessment and findings in the medical record. <Antonio Kimball - Last Filed: 12/14/17 15:14>
--- NOTE | 2017-12-14 16:06 | P.PNPAL ---
Reason for Visit Reason for visit: a. To assist with evaluation and management of symptoms including: pain, debility, anxiety b. To assist medical decision maker(s) with: better understanding of current medical conditions; weighing benefits/burdens of medical treatment options; making medical treatment decisions. Subjective Subjective/Interval History: Pt OOB to chair. He is alert, mildly confused, +short term memory deficit. He denies pain, SOB. he does admit "a bit" of sadness but not as bad as usual. He does not remember any doctors visiting him today or yesterday, says he is still waiting. When asked about brain surgery and radiation he says he "would be okay with that, I'd like to live a bit longer. I did chemo before and it wasn't bad." Neurosurgery following, could resect mass next Sunday. Radiation oncology consult pending. Pt apparently was agitated last night and needed to be restrained. He is unrestrained and calm during my eval. Family/Friend Interactions: attempted to contact pt's , had to leave message. Awaiting call back. Advance Directives Living Will: Copy in medical record Health Care Surrogate: Copy in medical record Health Care Surrogate Name and Number: Osman Yuan Objective Vital Signs: Vital Signs 12/13/17 16:00 12/13/17 20:00 12/13/17 21:24 Temperature 98 F 98.1 F Pulse Rate 58 L 82 Respiratory Rate 18 20 Blood Pressure 130/62 110/55 L Pulse Oximetry 95 99 95 12/14/17 04:00 12/14/17 08:32 12/14/17 08:51 Temperature 97.3 F L 97.6 F Pulse Rate 54 L 53 L 57 L Respiratory Rate 18 18 17 Blood Pressure 199/98 H 166/75 H Pulse Oximetry 95 92 L 12/14/17 12:03 12/14/17 15:39 Temperature 98.4 F Pulse Rate 54 L 55 L Respiratory Rate 18 17 Blood Pressure 106/54 L Pulse Oximetry 96 Intake & Output 12/13/17 12/14/17 12/14/17 18:59 06:59 18:59 Intake Total 720 / 720 240 / 240 Balance 720 / 720 240 / 240 Weight 86.1 kg Intake: Oral 720 / 720 240 / 240 Other: # Voids 1 # Incontinent Voids 3 Date of Last Bowel Movement 12/12/17 12/13/17 12/14/17 Physical Exam: CONSTITUTIONAL/GENERAL: frail appearing male, in NAD TUBES/LINES/DRAINS: port left chest SKIN: No jaundice, rashes. Sallow complexion. Ulceration left malleolus with surrounding erythema. No wounds seen anteriorly. Skin temperature appropriate. Not diaphoretic. HEAD: erythema and mild swelling left forehead. Normocephalic. EYES: Extraocular motions intact. No scleral icterus. No injection or drainage. Fundi not examined. ENT: Hearing grossly normal. Nose without bleeding or purulent drainage. CARDIOVASCULAR: RRR + murmur. No gallops, or rubs. No JVD. Peripheral pulses symmetric. RESPIRATORY/CHEST: Symmetric, unlabored respirations. Clear to auscultation. Breath sounds equal bilaterally. Diminished. GASTROINTESTINAL: Abdomen soft, non-tender, nondistended. No hepato-splenomegaly , or palpable masses. No guarding. Bowel sounds present. MUSCULOSKELETAL: Extremities without clubbing, cyanosis, or edema. No joint tenderness or effusion noted. No calf tenderness. No mottling or clubbing. NEUROLOGICAL: more alert today. Motor and sensory grossly within normal limits. Follows commands. Moves all extremities. PSYCHIATRIC: poor insight. no apparent hallucinations or other psychotic thought process. Diagnostic Tests Laboratory: Laboratory Results - last 72 hr 12/11/17 12/11/17 12/11/17 16:35 16:35 16:35 WBC 7.1 RBC 4.71 Hgb 12.5 L Hct 38.2 L MCV 81.2 MCH 26.5 L MCHC 32.6 RDW 15.9 Plt Count 146 L MPV 8.7 Neut % (Auto) 59.2 Lymph % (Auto) 28.3 Haskell % (Auto) 8.4 H Eos % (Auto) 3.6 Baso % (Auto) 0.5 Neut # (Auto) 4.2 Lymph # (Auto) 2.0 Haskell # (Auto) 0.6 Eos # (Auto) 0.3 Baso # (Auto) 0.0 WBC Differential . Differential Comment Auto diff final PT 10.5 INR 1.0 Sodium 141 Potassium 4.2 Chloride 106 Carbon Dioxide 28.1 Anion Gap 7 BUN 22 H Creatinine 0.66 Estimated GFR Greater than 89 POC Glucose Random Glucose 81 Calcium 8.7 Total Bilirubin AST ALT Alkaline Phosphatase Total Protein Albumin 12/12/17 12/12/17 12/13/17 04:30 04:30 02:03 WBC 4.8 RBC 4.40 L Hgb 11.8 L Hct 35.7 L MCV 81.0 MCH 26.7 L MCHC 33.0 RDW 16.0 Plt Count 143 L MPV 8.6 Neut % (Auto) 83.2 H Lymph % (Auto) 15.1 Haskell % (Auto) 1.1 Eos % (Auto) 0.2 Baso % (Auto) 0.4 Neut # (Auto) 4.0 Lymph # (Auto) 0.7 L Haskell # (Auto) 0.1 Eos # (Auto) 0.0 Baso # (Auto) 0.0 WBC Differential . Differential Comment Auto diff final PT INR Sodium 143 Potassium 4.2 Chloride 106 Carbon Dioxide 28.8 Anion Gap 8 BUN 18 Creatinine 0.71 Estimated GFR Greater than 89 POC Glucose 93 Random Glucose 124 H Calcium 8.5 Total Bilirubin 0.2 AST 15 ALT 17 Alkaline Phosphatase 67 Total Protein 6.5 Albumin 2.9 L Result Diagrams: 12/12/17 04:30 12/12/17 04:30 Imaging: ITS Impressions Cervical Spine CT 12/11/17 13:38 CONCLUSION: 1. Degenerative arthritic changes within the cervical spine as above. No acute fracture or destructive lesion is identified. Chest X-Ray 12/11/17 13:38 CONCLUSION: Mild airspace disease in left upper lobe and right lung base Otherwise stable chest Right Ovwadh-[id number]-Hslf catheter remains in stable position. Head CT 12/11/17 13:38 CONCLUSION: 1. 3.7 x 5.1 cm mass involving the posterior aspect of the right temporal cortex and the right occipital cortex. There is surrounding vasogenic edema. This is highly suspicious for malignancy. Lesion is new compared to previous CT scan dated 04/23/2017. Abdomen/Pelvis CT 12/12/17 00:00 CONCLUSION: 1. Mild constipation. No acute findings. No evidence for metastatic disease to the abdomen and pelvis. Prior cholecystectomy. Chest CT 12/12/17 00:00 CONCLUSION: 1. When compared with 2015 there is no evidence for tumor recurrence. No new adenopathy or soft tissue mass. Scarring upper left lung possibly related to prior radiation. 2. Coronary artery calcifications. Prior cholecystectomy. [id number] in superior vena cava. Head MRI 12/13/17 00:00 There is no evidence for acute infarction. There is a heterogeneous signal intensity mass identified in the right temporal lobe with a large amount of surrounding vasogenic edema. There is avid enhancement following administration of intravenous contrast. The mass measures approximately 5 x 3.1 cm in AP transverse dimension on axial image 57 of series 18. There is moderate confluent increased FLAIR signal in the periventricular white matter and bilateral centrum semiovale most characteristic of chronic microvascular ischemic disease. There is some blood products seen on susceptibility weighted imaging within the substance of the mass. No other masses are seen. The mass is intra-axial and on sagittal weighted images does extend to the tentorium on coronal image 126 of series 101. There is also extension to the inferior margin of the right temporal horn. CONCLUSION: 1. There is an avidly enhancing mass in the right temporal lobe identified. This is a new finding and would be most suspicious for metastatic disease. 2. White matter disease is felt to be chronic in nature. Assessment and Plan - Disease Oriented Problem List (1) Dementia (2) Cranial irradiation (3) Brain tumor (4) COPD (chronic obstructive pulmonary disease) Pertinent Non-Medical Issues: Psychosocial: Originally from [place]. Been in [place] 6 years. Has 1 estranged daughter. Been 39 years. Spiritual: none Legal: Pt not capacitated to make decisions and he is unlikely to regain capacity. He has designated his partner Osman as his HCS. 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 He was found to have a new brain mass that is thought to be metastatic. Mass possibly amenable to resection but with increased risks including risk for vent dependence. Given his underlying comorbidities and debility, his prognosis is poor and he is likely to continue declining. Code Status: No Code DNR Plan: - LEGAL DECISON MAKER - pt is not capacitated to make decisions and is unlikely to regain that capacity. He has designated his partner Osman as HCS. - CODE STATUS- no code/DNR - GOALS - Goals pending - awaiting callback from pt's HCS to discuss since recent neurosurgery and hem/onc follow up. HCS previously acknowledged surgery , if an option, is not likely to improve the patient's quality of life. "We probably won't want to do anything aggressive like surgery." Pt is somewhat confused but verbalizes that he would be okay with brain surgery and radiation , "I would like to live a bit longer." - SYMPTOMS - * pain - multifactorial - has neuropathy since cranial radiation, has mild left forehead pain from fall, has malleolar ulcer left leg. risk for pain from brain mass. denies pain on my eval. on brennen gabapentin. has PRN apap, this has not been given. Has PRN tramadol, last had 12/12. no further recs at this time * debility - wheelchairbound, has had balance difficulties since cranial radiation 4 y ago. hx frequent falls. PT now following, pt has difficulty ambulating assisted and they recommend he use wheelchair for mobility. Unlikely to improve. high risk for falls. * anxiety/depression - civil engineering project designer. admits some "sadness" but "not as bad as usual" on olanzapine, zoloft 100mg BID. no further recs at this time. - Palliative care will continue to follow during hospital course as condition evolves, to assist patient/decision-maker with understanding of medical conditions, weighing benefits/burdens of treatment options, for clarification of goals of treatment. Additionally will assist with any symptoms of palliative concern Attestation Attestation: To help prompt me to consider important information that might be impacting today's encounter and assessment, information from prior notes written by myself or my colleagues may have been "brought forward" into today's note. My signature on this note, however, is an attestation that I personally performed the exam, history, and/or decision-making noted today, and, unless otherwise indicated, the interactions with patient, family, and staff as well as the review of records all occurred today. I also attest that the listed assessment and stated plan reflect my best clinical judgment today based on the combination of historical information, prior notes, and today's exam/ interactions. When time spent is documented, it refers only to time spent today by the signer, or if indicated, combined time spent today by collaborating physician/nurse practitioner.
--- NOTE | 2017-12-14 18:30 | P.CON ---
History of Present Illness Service: Radiation oncology Consult date: 12/14/17 Requesting Physician: Daren Brand Reason for Consult: Patient be evaluated for salvage or therapy to the brain. Primary Care Provider: UNKNOWN Chief Complaint: fall History of Present Illness: 77-year-old white male with the diagnosis of small cell carcinoma of the lung about 5 years ago. Patient was treated with concomitant chemoradiation therapy and prophylactic whole brain radiation therapy. It appears that the patient had a fall from his wheelchair where he hit his head at the care home and as a result of this was transferred to the hospital where imaging studies have detected a brain mass. Patient recently diagnosed with mild Alzheimer's disease /dementia. Due to the mass in the brain Dr. Brand has placed a consult for evaluation regarding possible radiotherapy treatment options. Review of Systems Comments: Patient slightly confused. Ears, Nose, Mouth, and Throat: Denies abnormal hearing, Denies bleeding gums, Denies bad breath, Denies change in voice, Denies dental pain, Denies difficulty swallowing, Denies dizziness, Denies dry mouth, Denies ear discharge , Denies ear pain, Denies facial pain, Denies headache(s), Denies hearing loss, Denies hoarseness, Denies lip swelling, Denies nosebleed, Denies mouth lesions, Denies mouth pain, Denies nasal congestion, Denies nasal discharge, Denies nasal obstruction, Denies nasal trauma, Denies neck lump, Denies neck pain, Denies nose pain, Denies pain with swallowing, Denies poor balance, Denies post nasal drip, Denies ringing in the ears, Denies sinus pain, Denies sinus pressure , Denies sore throat, Denies throat swelling, Denies tongue swelling, Denies other Cardiovascular: Denies chest pain, Denies chest pain at rest, Denies chest pain with activity, Denies excessive sweating, Denies fainting, Denies fast heart rate, Denies foot swelling, Denies generalized swelling, Denies irregular heart rhythm, Denies leg pain with activity, Denies leg sores, Denies leg swelling, Denies lightheadedness, Denies radiating jaw, neck or arm pain, Denies rapid, pounding, or irregular heartbeat, Denies shortness of breath, Denies shortness of breath with activity, Denies shortness of breath when lying down, Denies shortness of breath causing sudden awakening, Denies slow heart rate, Denies other Respiratory: Denies change in phlegm color, Denies chest congestion, Denies cough, Denies coughing up blood, Denies excessive phlegm production, Denies pain on inspiration, Denies pain with cough, Denies shortness of breath, Denies shortness of breath with activity, Denies snoring, Denies stridor, Denies wheezing, Denies other Gastrointestinal: Denies abdominal pain, Denies belching, Denies black, tarry stools, Denies bloating, Denies bright, red blood in stools, Denies change in bowel habits, Denies constant urge to pass stool, Denies change in stools, Denies coffee ground vomit, Denies constipation, Denies cramping, Denies difficulty swallowing, Denies excessive passing of gas, Denies feeling full early, Denies heartburn, Denies incontinent of stools, Denies loose stools, Denies nausea, Denies pain with swallowing, Denies vomiting, Denies vomiting blood, Denies other Genitourinary: Denies blood in semen, Denies blood in urine, Denies decreased urination, Denies difficulty urinating, Denies difficulty with ejaculations, Denies erectile dysfunction, Denies genital lesions, Denies genital pain, Denies painful urination, Denies side pain, Denies frequent nighttime urination , Denies painful ejaculations, Denies penile discharge, Denies scrotal swelling , Denies testicle lump, Denies testicle pain, Denies urinary frequency, Denies urinary hesitancy, Denies urinary incontinence, Denies urinary urgency, Denies other Musculoskeletal: Reports muscle weakness Comments: Patient states that he has a weakness of the right lower extremity. Skin/Breast: Denies acne, Denies bleeding lesions, Denies boil, Denies breast swelling, Denies breast skin changes, Denies breast pain, Denies breast lump, Denies change in breast shape, Denies change in hair, Denies change in skin color, Denies changing lesions, Denies dry skin, Denies excessive hair growth, Denies hair loss, Denies itching, Denies lesions, Denies nail changes, Denies new lesions, Denies nipple discharge, Denies non-healing lesions, Denies redness , Denies sensitivity to light, Denies rash, Denies skin pain, Denies skin ulcer , Denies sores, Denies stretch carpenter, Denies unusual bruising, Denies wounds, Denies yellowing of the skin, Denies other Neurologic: Reports confusion, Reports frequent falls, Reports localized weakness, Reports memory loss, Reports unsteadiness, Reports weakness Psychiatric: Reports behavioral changes, Reports confusion, Reports memory loss Endocrine: Denies cold intolerance, Denies excessive sweating, Denies flushing, Denies heat intolerance, Denies increased hunger, Denies increased thirst, Denies increased urination, Denies rapid, pounding, or irregular heartbeat, Denies other Hematologic/Lymphatic: Denies easy bleeding, Denies easy bruising, Denies enlarged lymph nodes, Denies other Allergic/Immunologic: Denies GI upset with certain foods, Denies hives, Denies itchy eyes, Denies lip swelling, Denies seasonal runny nose, Denies throat swelling, Denies tongue swelling, Denies wheezing, Denies other PMFSH - History History Provided By: Patient (+family hx [place]; no family hx cancer), Family Member - Medical History Medical History: Medical History (Last Reviewed 12/14/17 @ 08:33 by Niko Humphrey) Anemia COPD (chronic obstructive pulmonary disease) Dementia Difficulty walking Frequent falls Hyperlipidemia Hypertension Major depressive disorder Malignant neoplasm of upper lobe of lung Restless leg syndrome - Surgical History Surgical History: Surgical History (Last Reviewed 12/14/17 @ 08:33 by Niko Humphrey) History of laminectomy Hx of cholecystectomy Hx of foot surgery - Tobacco History Second Hand Smoke Exposure: No Tobacco Use In Past 30 Days: No Smoking Status: Former smoker Tobacco Type: Cigarettes - Alcohol History How Often Do You Have a Drink Containing Alcohol: Never (formerly consumed etoh , denies heavy use) - Substance Use History Substance History: No History of Abuse - Travel History Recent Travel in the [place] Within the Last 8 Weeks: No Recent Travel Out of the Country Within the Last 8 Weeks: No - Immunization History Tetanus Immunization: <5 Years Hx Influenza Vaccine This Season: Yes Medications and Allergies Active Medications: Active Medications Acetaminophen (Tylenol) 650 mg PO Q4H PRN PRN Reason: Temp > 100.4 Al Hydroxide/Mg Hydroxide (Milk Of Magnesia Liq) 30 ml PO Q12H PRN PRN Reason: Mild Constipation Albuterol (Duoneb Neb (Radha)) 1 ampul NEB Q8HR NEB [facility] Last Admin: 12/14/17 15:38 Dose: 1 ampul Amlodipine Besylate (Norvasc) 5 mg PO DAILY [facility] Last Admin: 12/14/17 09:32 Dose: 5 mg Atenolol (Tenormin) 50 mg PO DAILY [facility] Last Admin: 12/14/17 17:11 Dose: 50 mg Bisacodyl (Dulcolax Supp) 10 mg RECTAL DAILY PRN PRN Reason: SEVERE CONSITIPATION Budesonide/Formoterol Fumarate (Symbicort 160/4.5 Mcg Inh) 2 puff INH BID [facility] Last Admin: 12/14/17 09:34 Dose: 2 puff Clonidine HCl (Catapres) 0.1 mg PO Q6H PRN PRN Reason: SBP>180, DBP>95 Last Admin: 12/14/17 04:08 Dose: 0.1 mg Dexamethasone Sodium Phosphate (Decadron Inj) 4 mg IV.PUSH Q6HR [facility] Last Admin: 12/14/17 17:11 Dose: 4 mg Gabapentin (Neurontin) 300 mg PO BID [facility] Last Admin: 12/14/17 09:32 Dose: 300 mg Sodium Chloride (Ns Inj) 1,000 mls @ 42 mls/hr IV.CONT .[id number] [facility] Last Admin: 12/14/17 12:59 Dose: Not Given Lactulose (Lactulose Liq) 30 ml PO DAILY PRN PRN Reason: SEVERE CONSITIPATION Olanzapine (Zyprexa) 5 mg PO DAILY [facility] Last Admin: 12/14/17 09:32 Dose: 5 mg Ondansetron HCl (Zofran Inj) 4 mg IV.PUSH Q6H PRN PRN Reason: NAUSEA OR VOMITING Polyethylene Glycol (Miralax) 17 gm PO DAILY [facility] Last Admin: 12/14/17 09:34 Dose: 17 gm Pravastatin Sodium (Pravachol) 20 mg PO DAILY [facility] Last Admin: 12/14/17 09:32 Dose: 20 mg Senna/Docusate Sodium (Roseann-Colace) 1 tab PO BID [facility] Last Admin: 12/14/17 09:32 Dose: 1 tab Sennosides (Senokot) 17.2 mg PO Q12H PRN PRN Reason: Moderate Constipation Sertraline HCl (Zoloft) 100 mg PO DAILY [facility] Last Admin: 12/14/17 09:32 Dose: 100 mg Sodium Chloride (Ns Flush) 2 ml IV.FLUSH PRN PRN PRN Reason: FLUSH AFTER USING IV ACCESS Tramadol HCl (Ultram) 50 mg PO Q8H PRN PRN Reason: PAIN SCALE 1 TO 10 Last Admin: 12/12/17 21:11 Dose: 50 mg Allergies Allergy/AdvReac Type Severity Reaction Status Date / Time No Known Allergies Allergy Unknown Uncoded 04/23/17 11:23 Home Medications Medication Instructions Recorded Confirmed Type amlodipine 5 mg PO DAILY 12/11/17 12/11/17 History atenolol 100 mg PO DAILY 12/11/17 12/11/17 History budesonide-formoterol [Symbicort] 2 puff INHALATION BID 12/11/17 12/11/17 History calcium carbonate-vitamin D3 1 tab PO DAILY 12/11/17 12/11/17 History [Calcium 600 + D(3)] ferrous sulfate [Iron (ferrous 325 mg PO BID 12/11/17 12/11/17 History sulfate)] folic acid 0.4 mg PO DAILY 12/11/17 12/11/17 History gabapentin 300 mg PO BID 12/11/17 12/11/17 History ipratropium-albuterol 3 ml INHALATION Q8H 12/11/17 12/11/17 History olanzapine 5 mg PO DAILY 12/11/17 12/11/17 History olanzapine 15 mg PO HS 12/11/17 12/11/17 History pediatric ilhlkapf-[id number] 1 tab PO DAILY 12/11/17 12/11/17 History [Multi-Vitamins with Iron] potassium chloride 10 meq PO DAILY 12/11/17 12/11/17 History pravastatin 20 mg PO DAILY 12/11/17 12/11/17 History sertraline 100 mg PO DAILY 12/11/17 12/11/17 History zinc sulfate 220 mg PO DAILY 12/11/17 12/11/17 History Physical Exam Vital signs: Vital Signs 12/13/17 20:00 12/13/17 21:24 12/14/17 04:00 Temperature 98.1 F 97.3 F L Pulse Rate 82 54 L Respiratory Rate 20 18 Blood Pressure 110/55 L 199/98 H Pulse Oximetry 99 95 95 12/14/17 08:32 12/14/17 08:51 12/14/17 12:03 Temperature 97.6 F 98.4 F Pulse Rate 53 L 57 L 54 L Respiratory Rate 18 17 18 Blood Pressure 166/75 H 106/54 L Pulse Oximetry 92 L 96 12/14/17 15:39 12/14/17 16:00 Temperature 97.8 F Pulse Rate 55 L 55 L Respiratory Rate 17 20 Blood Pressure 133/60 Pulse Oximetry 95 Intake & Output 12/13/17 12/14/17 12/14/17 18:59 06:59 18:59 Intake Total 720 / 720 240 / 240 980 / 980 Balance 720 / 720 240 / 240 980 / 980 Weight 86.1 kg Intake: Oral 720 / 720 240 / 240 980 / 980 Other: # Voids 1 # Incontinent Voids 3 3 Date of Last Bowel Movement 12/12/17 12/13/17 12/14/17 # Bowel Movements 1 - Constitutional no acute distress, average body habitus, cooperative - Routine HEENT Exam Head: Present: normocephalic, atraumatic Eye: Present: EOMI ENT: Present: mucous membranes moist, nares patent, external ear normal - Routine Neck Exam Present: supple, trachea midline - Routine Respiratory Exam Comments: Lungs were clear to auscultation with appropriate ventilatory inspiratory effort. - Routine Cardiovascular Exam Comments: Heart is regular in rate and rhythm with no murmurs. - Routine Abdominal Exam Present: soft - Routine Extremities Exam Comments: No lower extremity edema detected bilaterally. - Routine Skin Exam Present: intact - Routine Neurological Exam Present: alert, altered mental status, moving all extremities, vision grossly intact, hearing grossly intact To neurological examination I cannot detect any weakness of the upper and lower extremities. Patient says that he has weakness of the right lower extremity but I cannot reproduce this. - Routine Psychiatric Exam Present: cooperative Comments: Patient is a slightly confused. Is able to carry a conversation. But drifts and does not answer the questions. 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 Patient being evaluated for possible radiotherapy treatment options. Plan: I have discussed this case with Dr. Brand today. I have reviewed his imaging studies.I advised the patient that I will have to obtain the records from [facility] to determine previous radiation doses or to the normal structures. Usually a prophylactic dose to the brain for small cell carcinoma is about 2500 cGy, so this should allow for further radiation therapy to the area. The areas were close to the brainstem, but we could potentially try to see if SRT is an option versus plain palliative radiation therapy. Treatment will depend on the wishes of the patient for aggressive treatment versus palliative treatment. Per my discussion with Dr. Raya does not appear that the patient has any systemic disease at the present time. Therefore he should be a candidate for treatment to the brain. I discussed the side effects and complications with the patient. Also reach out to Osman Yuan and left a message at his voice box, he was reached at [phone]. Patient will become contacted again on Sunday to determine how he would like to proceed. Patient advised if I could be of any further assistance or to please let me know otherwise we will proceed as above. Dr. Brand thank you very much for the referral this patient and allowing me to precipitate in his care. Should you have any further questions or concerns please do not hesitate to contact me.
--- NOTE | 2017-12-15 08:47 | P.PN ---
Subjective Interval history: Follow-up on patient status post mechanical fall at home, brain mass. Patient seen and examined. Notified by nursing staff patient with bradycardia with heart rate of 38. Patient is asymptomatic. Patient denies any acute medical complaints. HR improved, now in the mid 40s. Patient sundowning at night. Physical Exam Vital signs: Vital Signs 12/14/17 08:51 12/14/17 12:03 12/14/17 15:39 Temperature 98.4 F Pulse Rate 57 L 54 L 55 L Respiratory Rate 17 18 17 Blood Pressure 106/54 L Pulse Oximetry 96 12/14/17 16:00 12/14/17 20:00 12/15/17 00:00 Temperature 97.8 F 97.8 F 97.8 F Pulse Rate 55 L 58 L 54 L Respiratory Rate 20 16 18 Blood Pressure 133/60 178/79 H 177/70 H Pulse Oximetry 95 94 L 95 12/15/17 00:57 12/15/17 04:00 12/15/17 06:14 Temperature 97.8 F Pulse Rate 50 L 58 L 43 L Respiratory Rate 18 18 Blood Pressure 178/79 H 176/76 H Pulse Oximetry 94 L 12/15/17 07:43 12/15/17 08:33 Temperature 80 F L Pulse Rate 46 L 45 L Respiratory Rate 18 15 Blood Pressure 166/72 H Pulse Oximetry 97 96 Intake & Output 12/14/17 12/15/17 12/15/17 18:59 06:59 18:59 Intake Total 980 / 980 1000 / 1000 Balance 980 / 980 1000 / 1000 Intake: IV 1000 / 1000 NS Inj 1,000 ML @ 42 mls/hr IV. 1000 / 1000 CONT .[id number] [facility] Rx#:[id number] Oral 980 / 980 Other: # Incontinent Voids 3 1 Date of Last Bowel Movement 12/14/17 12/14/17 # Bowel Movements 1 Narrative: GENERAL: WDWN elderly male patient, INAD. Awake and alert. Appears comfortable lying in bed. SKIN: Warm and dry. No rash. HEENT: Normocephalic. Pupils equal and round. No scleral icterus. No injection or drainage. No nasal bleeding or discharge. Mucous membranes pink and moist. NECK: Trachea midline. CARDIOVASCULAR: Bradycardia. +Systolic murmur. RESPIRATORY: No accessory muscle use. Clear to auscultation. Breath sounds equal bilaterally. GASTROINTESTINAL: Abdomen soft, non-tender, nondistended. MUSCULOSKELETAL: Extremities without clubbing, cyanosis, or edema. No obvious deformities. NEUROLOGICAL: Awake and alert. No obvious cranial nerve deficits. Motor grossly within normal limits. Able to move all extremities spontaneously. Normal speech. PSYCHIATRIC: Appropriate mood and affect; insight and judgment normal. Results - Labs CBC & Chem 7: 12/15/17 09:10 12/15/17 09:10 Assessment and Plan - Plan 77-year-old male with PMH of squamous cell CA, dementia who presents the emergency room after he suffered a mechanical fall. S/p mechanical fall Brain mass hx of small cell lung ca s/p concurrent chemotherapy and radiation CT head 3.7 x 5.1 cm mass involving the posterior aspect of the right temporal cortex and the right occipital cortex. There is surrounding vasogenic edema. This is highly suspicious for malignancy. Lesion is new compared to previous CT scan dated 04/23/2017. CT cervical spine shows degenerative changes but no acute fracture or destructive lesion MRI brain shows enhancing mass in right temporal lobe suspicious for metastatic disease Oncology following, appreciate assistance. Recommends resection with radiation if patient wishes aggressive treatment, hospice if not. Poor prognosis. Radiation oncology following Neurosurgery consulted, appreciate assistance Continue on IV Decadron Palliative care following for goals of care, appreciate assistance seizure precautions Bradycardia, asymptomatic stop Atenolol Hold Clonidine obtain EKG and echocardiogram serial cardiac enzymes obtain TSH level continuous cardiac monitoring Hypertension Continue on home dose of Norvasc. D/C Atenolol. Begin low dose Lisinopril. Continue to monitor BP trend and adjust treatment accordingly Balance instability and cognitive dysfunction s/p cranial irradiation Fall precautions continue with PT/OT COPD, not in acute exacerbation continue with bronchodilator therapy Duonebs scheduled q8hrs continue to monitor respiratory status DVT ppx SCD/TEDs CI chemoppx at this time patient with brain mass Code Status: DNR Discussed Condition With: patient, nursing staff, Dr. Mao Discharge Planning: Not ready for discharge. Discharge pending Oncology and Neurosurgery clearance.
[2017-12-15] MEDS: Gabapentin 300 MG Capsule PO SCH ×2 (08:52→20:51)
[2017-12-15] MEDS: Polyethylene Glycol 3350 17 GM Packet PO SCH (08:53)
[2017-12-15] MEDS: Sertraline 100 MG Tablet PO SCH (08:53)
[2017-12-15] MEDS: amLODIPine 5 MG Tablet PO SCH (08:53)
[2017-12-15] MEDS: Senna/Docusate Sodium 8.6/50 MG Tablet PO SCH ×2 (08:53→20:51)
[2017-12-15 10:15] LABS: Baso % (Auto) 0.1 % (0.0-2.0); Hematocrit 36.6 % (39.0-51.0); Hemoglobin 11.5 gm/dL (13.0-17.0); Lymph # (Auto) 1.4 th/mm3 (1.0-4.8); Mean Corpuscular HGB Conc 31.3 % (32.0-36.0); Mean Corpuscular Hemoglobin 25.8 pg (27.0-34.0); Mean Corpuscular Volume 82.2 fL (80.0-100.0); Mean Platelet Volume 9.2 fL (7.0-11.0); Mono # (Auto) 0.3 th/mm3 (0.0-0.9); Mono % (Auto) 3.5 % (0.0-8.0); Neut # (Auto) 5.6 th/mm3 (1.8-7.7); Neut % (Auto) 77.4 % (16.0-70.0); Platelet Count 144 th/mm3 (150-450); Red Blood Count 4.45 mil/mm3 (4.50-5.90); Red Cell Distribution Width 16.5 % (11.6-17.2); White Blood Count 7.3 th/mm3 (4.0-11.0)
[2017-12-15 10:37] LABS: Anion Gap 6 meq/L (5-15); Aspartate Aminotransferase 22 U/L (15-37); Blood Urea Nitrogen 27 mg/dL (7-18); Calcium 8.3 mg/dL (8.5-10.1); Carbon Dioxide 28.8 meq/L (21.0-32.0); Chloride 108 meq/L (98-107); Glomerular Filtration Rate Greater Than 89 mL/min (>89); Glucose,Random 101 mg/dL (74-106); Magnesium 2.2 mg/dL (1.5-2.5); Potassium 3.9 meq/L (3.5-5.1); Sodium 143 meq/L (136-145)
[2017-12-15 10:40] LABS: Alanine Aminotransferase 41 U/L (12-78); Alkaline Phosphatase 73 U/L (45-117); Phosphorus 2.9 mg/dL (2.5-4.9); Total Protein 6.4 g/dL (6.4-8.2)
[2017-12-15 10:46] LABS: Thyroid Stimulating Hormone 0.663 uIU/mL (0.358-3.740)
[2017-12-15 10:47] LABS: Creatine Kinase 31 U/L (39-308)
--- NOTE | 2017-12-15 11:52 | ECG ---
Date Performed: 12/15/2017 Time Performed: 09:58:58 PTAGE: 77 years EKG: SINUS BRADYCARDIA WITH OCCASIONAL VENTRICULAR PREMATURE COMPLEXES BORDERLINE ECG PREVIOUS TRACING : 04/23/2017 10.44 DOCTOR: Mary Gomez Interpretating Date/Time 12/15/2017 11:51:34
[2017-12-15] MEDS: Budesonide-Formoterol 160/4.5 MCG 6 GM Inhaler INH SCH ×2 (12:08→20:51)
[2017-12-15] MEDS: Lisinopril 5 MG Tablet PO SCH (12:08)
[2017-12-15] MEDS: Sod Chloride 0.9% Inj 1,000 ML IV.CONT SCH (12:09)
--- NOTE | 2017-12-15 15:31 | ECHRPT ---
Indication: CARDIOMYOPATHY CONCLUSIONS The left ventricular systolic function is normal with an estimated ejection fraction in the range of 55-60%. Normal left ventricular size. Wall thickness is normal. No regional wall motion abnormalities are present. Trace mitral valve regurgitation. There is mild tricuspid valve regurgitation. The estimated pulmonary arterial pressure is 44.1 mmHg. Trivial pulmonary valve regurgitation. The inferior vena cava was not well visualized. BP: / HR: Rhythm: Sinus MEASUREMENTS (Male / Female) Normal Values Technical Quality:Good 2D ECHO LV Diastolic Diameter PLAX 4.8 cm 4.2 - 5.9 / 3.9 - 5.3 cm LV Systolic Diameter PLAX 3.6 cm IVS Diastolic Thickness 0.9 cm 0.6 - 1.0 / 0.6 - 0.9 cm LVPW Diastolic Thickness 0.9 cm 0.6 - 1.0 / 0.6 - 0.9 cm LV Relative Wall Thickness 0.4 LVOT Diameter 1.8 cm LA Systolic Diameter LX 4.0 cm 3.0 - 4.0 / 2.7 - 3.8 cm LV Ejection Fraction MOD 4C 57.0 % LV Ejection Fraction 4C AL 61.2 % M-MODE Aortic Root Diameter MM 2.5 cm LA Systolic Diameter MM 4.0 cm LA Ao Ratio MM 1.6 AV Cusp Separation MM 1.6 cm DOPPLER AV Peak Velocity 229.0 cm/s AV Peak Gradient 21.0 mmHg AV Mean Gradient 11.0 mmHg AV Velocity Time Integral 61.8 cm LVOT Peak Velocity 119.0 cm/s LVOT Peak Gradient 5.7 mmHg LVOT Velocity Time Integral 32.1 cm AV Area Cont Eq vti 1.3 cm AV Area Cont Eq pk 1.3 cm MV Area PHT 2.6 cm Mitral E Point Velocity 102.0 cm/s Mitral A Point Velocity 93.3 cm/s Mitral E to A Ratio 1.1 LV E' Lateral Velocity 7.7 cm/s Mitral E to LV E' Lateral Ratio 13.2 LV E' Septal Velocity 5.2 cm/s Mitral E to LV E' Septal Ratio 19.7 TR Peak Velocity 292.0 cm/s TR Peak Gradient 34.1 mmHg Right Atrial Pressure 10.0 mmHg Pulmonary Artery Systolic Pressu 44.1 mmHg Right Ventricular Systolic Press 44.1 mmHg PV Peak Velocity 133.0 cm/s PV Peak Gradient 7.1 mmHg FINDINGS LEFT VENTRICLE The left ventricular systolic function is normal with an estimated ejection fraction in the range of 55-60%. Normal left ventricular size. Wall thickness is normal. No regional wall motion abnormalities are present. RIGHT VENTRICLE Normal right ventricular size and systolic function. LEFT ATRIUM The left atrial size is normal. RIGHT ATRIUM The right atrial size is normal. ATRIAL SEPTUM Normal atrial septal thickness without atrial level shunting by limited color doppler interrogation. AORTA The aortic root and proximal ascending aorta are normal in size on limited imaging. MITRAL VALVE Structurally normal mitral valve. Trace mitral valve regurgitation. AORTIC VALVE Trileaflet aortic valve. No aortic valve stenosis or regurgitation. TRICUSPID VALVE Structurally normal tricuspid valve. There is mild tricuspid valve regurgitation. The estimated pulmonary arterial pressure is 44.1 mmHg. PULMONARY VALVE Trivial pulmonary valve regurgitation. VESSELS The inferior vena cava was not well visualized. PERICARDIUM No pericardial effusion. Mary Gomez MD (Electronically Signed) Final Date:15 December 2017 15:30
[2017-12-15 16:08] LABS: Troponin I 0.02 ng/mL (0.02-0.05)
[2017-12-15 22:44] LABS: Troponin I 0.02 ng/mL (0.02-0.05)
[2017-12-16] MEDS: Sertraline 100 MG Tablet PO SCH (08:45)
[2017-12-16] MEDS: Gabapentin 300 MG Capsule PO SCH ×2 (08:45→20:28)
[2017-12-16] MEDS: amLODIPine 5 MG Tablet PO SCH (08:45)
[2017-12-16] MEDS: Senna/Docusate Sodium 8.6/50 MG Tablet PO SCH ×2 (08:45→20:30)
[2017-12-16] MEDS: Lisinopril 5 MG Tablet PO SCH (08:45)
[2017-12-16] MEDS: Polyethylene Glycol 3350 17 GM Packet PO SCH (08:45)
[2017-12-16] MEDS: Budesonide-Formoterol 160/4.5 MCG 6 GM Inhaler INH SCH ×2 (08:46→20:28)
[2017-12-16] MEDS ORDERED: Haloperidol Inj 5 MG/ML Ampul IV.PUSH PRN (09:14)
--- NOTE | 2017-12-16 12:31 | P.PN ---
Subjective Interval history: Follow-up on patient status post mechanical fall at home, brain mass. Patient seen and examined. HR improved. Patient has no new medical complaints. He is stable. No significant change. Discussed with nursing staff, patient continues to have issues with agitation at night, . Pulled out his IV. BP elevated. Physical Exam Vital signs: Vital Signs 12/15/17 13:15 12/15/17 16:00 12/15/17 20:00 Temperature 98 F 98 F Pulse Rate 42 L 47 L 52 L Respiratory Rate 18 19 Blood Pressure 138/65 182/75 H Pulse Oximetry 96 94 L 12/15/17 20:54 12/16/17 00:00 12/16/17 04:00 Temperature 99.2 F 98.5 F Pulse Rate 52 L 50 L 48 L Respiratory Rate 18 18 Blood Pressure 169/77 H 157/72 H 183/81 H Pulse Oximetry 94 L 95 12/16/17 08:00 Temperature 97.9 F Pulse Rate 50 L Respiratory Rate 20 Blood Pressure 189/81 H Pulse Oximetry 93 L Intake & Output 12/15/17 12/16/17 12/16/17 18:59 06:59 18:59 Intake Total 480 / 480 Output Total 1000 / 1000 350 / 350 Balance -520 / -520 -350 / -350 Intake: Oral 480 / 480 Output: Urine 1000 / 1000 350 / 350 Other: # Incontinent Voids 2 Date of Last Bowel Movement 12/15/17 Narrative: GENERAL: WDWN elderly male patient. Awake and alert. Appears comfortable lying in bed. Not in any acute distress. SKIN: Warm and dry. No rash. HEENT: Normocephalic. Pupils equal and round. No scleral icterus. No injection or drainage. No nasal bleeding or discharge. Mucous membranes pink and moist. NECK: Trachea midline. CARDIOVASCULAR: Bradycardia. +Systolic murmur. RESPIRATORY: No accessory muscle use. Clear to auscultation. Breath sounds equal bilaterally. GASTROINTESTINAL: Abdomen soft, non-tender, nondistended. MUSCULOSKELETAL: Extremities without clubbing, cyanosis, or edema. No obvious deformities. NEUROLOGICAL: Awake and alert. No obvious cranial nerve deficits. Motor grossly within normal limits. Able to move all extremities spontaneously. Normal speech. PSYCHIATRIC: Appropriate mood and affect; insight and judgment normal. Results - Labs CBC & Chem 7: 12/15/17 09:10 12/15/17 09:10 Laboratory Results - last 24 hr 12/15/17 12/15/17 15:30 21:30 Total Creatine Kinase 20 L 23 L Troponin I 0.02 0.02 Assessment and Plan - Plan 77-year-old male with PMH of squamous cell CA, dementia who presents the emergency room after he suffered a mechanical fall. S/p mechanical fall Brain mass hx of small cell lung ca s/p concurrent chemotherapy and radiation CT head 3.7 x 5.1 cm mass involving the posterior aspect of the right temporal cortex and the right occipital cortex. There is surrounding vasogenic edema. This is highly suspicious for malignancy. Lesion is new compared to previous CT scan dated 04/23/2017. CT cervical spine shows degenerative changes but no acute fracture or destructive lesion MRI brain shows enhancing mass in right temporal lobe suspicious for metastatic disease Oncology following, appreciate assistance. Recommends resection with radiation if patient wishes aggressive treatment, hospice if not. Poor prognosis. Radiation oncology following Neurosurgery consulted, appreciate assistance Continue on IV Decadron Palliative care following for goals of care, appreciate assistance seizure precautions Bradycardia, asymptomatic Atenolol discontinued, HR improved EKG shows sinus bradycardia ECHO EF 55-60% Sundeep neg x 3 TSH 0.663 continuous cardiac monitoring Hypertension, not well controlled Increase dose of Norvasc to 10 mg daily. Continue lisinopril 5 mg daily Clonidine as needed with parameters Continue to monitor BP trend and adjust treatment accordingly Balance instability and cognitive dysfunction s/p cranial irradiation Fall precautions continue with PT/OT increased agitation at night pulled out his IV Low dose Haldol prn soft restraints as needed COPD, not in acute exacerbation continue with bronchodilator therapy Duonebs scheduled q8hrs continue to monitor respiratory status DVT ppx SCD/TEDs CI chemoppx at this time patient with brain mass Code Status: DNR Discussed Condition With: patient, nursing staff, Dr. Mao Discharge Planning: Not ready for discharge. Discharge pending Oncology and Neurosurgery clearance.
[2017-12-16] MEDS ORDERED: amLODIPine 5 MG Tablet PO ONE (15:15)
[2017-12-16] MEDS: Sod Chloride 0.9% Inj 1,000 ML IV.CONT SCH (16:14)
[2017-12-17] MEDS: Sertraline 100 MG Tablet PO SCH (08:52)
[2017-12-17] MEDS: Gabapentin 300 MG Capsule PO SCH ×2 (08:52→21:26)
[2017-12-17] MEDS: Senna/Docusate Sodium 8.6/50 MG Tablet PO SCH ×2 (08:52→21:26)
[2017-12-17] MEDS: Polyethylene Glycol 3350 17 GM Packet PO SCH (08:54)
[2017-12-17] MEDS ORDERED: amLODIPine 10 MG Tablet PO SCH (09:00)
[2017-12-17] MEDS: Budesonide-Formoterol 160/4.5 MCG 6 GM Inhaler INH SCH ×2 (09:00→21:26)
[2017-12-17] MEDS: Lisinopril 5 MG Tablet PO SCH (10:46)
--- NOTE | 2017-12-17 12:13 | P.PNNS ---
Subjective Interval history: Pt awake and alert. and reportedly POA at bedside. Pt was seen by radiation oncology and note reviewed. Appreciate their assistance. Pts states he would like pt to have surgery and if the pt is a candidate treat the resection bed after. Pt denies headache. no n/v. No paresthesias in face or extremities. <Kiet Desai - Last Filed: 12/17/17 12:00> Physical Exam Vital signs: Vital Signs 12/16/17 16:00 12/16/17 20:00 12/17/17 00:00 Temperature 98 F 98.7 F Pulse Rate 52 L 57 L 50 L Respiratory Rate 20 20 20 Blood Pressure 128/63 139/77 169/79 H Pulse Oximetry 96 94 L 95 12/17/17 04:00 12/17/17 08:00 Temperature 97.9 F 97.5 F L Pulse Rate 57 L 53 L Respiratory Rate 20 14 Blood Pressure 170/77 H 175/80 H Pulse Oximetry 99 Intake & Output 12/16/17 12/17/17 12/17/17 18:59 06:59 18:59 Intake Total 240 / 240 Output Total 600 / 600 100 / 100 Balance -360 / -360 -100 / -100 Intake: Oral 240 / 240 Output: Urine 600 / 600 100 / 100 Other: # Voids 1 # Incontinent Voids 2 # Urine Diapers 1 Date of Last Bowel Movement 12/15/17 12/16/17 # Bowel Movements 1 - Constitutional no acute distress, obese - Routine HEENT Exam Head: Present: normocephalic, atraumatic Eye: Present: PERRL (Pupils 3mm bilaterally reactive bilaterally.). Absent: conjunctival icterus ENT: Present: oropharynx clear - Routine Neck Exam Present: trachea midline - Routine Respiratory Exam Present: CTA bilaterally. Absent: respiratory distress, rhonchi, wheezes - Routine Cardiovascular Exam Present: RRR, S1, S2. Absent: murmur - Routine Abdominal Exam Present: soft, normoactive bowel sounds - Routine Extremities Exam Absent: cyanosis - Routine Skin Exam Absent: cyanosis, erythema - Routine Neurological Exam Present: alert, altered mental status (Pt has dementia.), moving all extremities , normal speech. Absent: motor deficit - Routine Psychiatric Exam Present: cooperative. Absent: normal thought process (Pt has POA as he gets confused and has poor memory.), good insight, good judgment, anxious, agitated <Kiet Desai - Last Filed: 12/17/17 12:00> Vital signs: Vital Signs 12/16/17 20:00 12/17/17 00:00 12/17/17 04:00 Temperature 98.7 F 97.9 F Pulse Rate 57 L 50 L 57 L Respiratory Rate 20 20 20 Blood Pressure 139/77 169/79 H 170/77 H Pulse Oximetry 94 L 95 12/17/17 08:00 12/17/17 12:00 12/17/17 16:00 Temperature 97.5 F L 97.7 F 98.1 F Pulse Rate 50 L 53 L 57 L Respiratory Rate 14 18 16 Blood Pressure 175/80 H 113/57 L 132/60 Pulse Oximetry 99 93 L 94 L Intake & Output 12/16/17 12/17/17 12/17/17 18:59 06:59 18:59 Intake Total 240 / 240 Output Total 600 / 600 100 / 100 Balance -360 / -360 -100 / -100 Intake: Oral 240 / 240 Output: Urine 600 / 600 100 / 100 Other: # Voids 1 # Incontinent Voids 2 # Urine Diapers 1 Date of Last Bowel Movement 12/15/17 12/16/17 12/16/17 # Bowel Movements 1 - Routine Neurological Exam Present: motor deficit. Absent: vision grossly intact (Left lateral visual field deficit) - Detailed Neurological Exam: Coma Scale Eye Opening: Spontaneous Verbal Response: Confused Motor Response: Obey commands Robert Coma Scale Total: 14 <JigarAntonio cason - Last Filed: 12/17/17 18:24> Assessment and Plan - Assessment (1) Anxiety Code(s): F41.9 - Anxiety disorder, unspecified Status: Acute (2) Brain tumor Code(s): D49.6 - Neoplasm of unspecified behavior of brain Status: Acute (3) COPD (chronic obstructive pulmonary disease) Code(s): J44.9 - Chronic obstructive pulmonary disease, unspecified Status: Acute (4) Cranial irradiation Status: Acute (5) Debility Code(s): R53.81 - Other malaise Status: Acute (6) Dementia Code(s): F03.90 - Unspecified dementia without behavioral disturbance Status: Acute (7) Pain Code(s): R52 - Pain, unspecified Status: Acute - Plan A: 77yoM with history of small cell ca. 5 years ago treated including whole brain XRT. s/p fall and incidentally discovered to have a large right parieto- occipital mass on CT scan with vasogenic edema. MRI of the brain confirms a 5 x 3.1cm right temporal lobe mass with surrounding vasogenic edema. Plan: Discussed with pt and at bedside who is reportedly the POA. Pts states he would like to proceed with surgery and follow up with radiation to the resection bed. Radiation oncology has seen the pt over the weekend but was not able to talk with the POA. Radiation oncology's note states pt would be a candidate for additional radiation depending on previous dose if the POA wants to be aggressive. We tentatively have the pt on the OR schedule for tomorrow based on POAs wishes to be aggressive with surgery. Radiation Oncology stated they will meet with the POA today to discuss with him. Currently the plan is what the POA expressed to me which is resection of the mass followed by radiation when he has healed. Pts POA is aware of the risks of surgery which were discussed with him in detail. We discussed the risk are in the moderate range and include but are not limited to bleeding, infection, muscle weakness, voice hoarseness, difficulty swallowing, heart attack, stroke, blood clots, seizures, and increase brain edema among others. Continue with Decadron 4mg IV q6 Continue to get oob with assistance. <Kiet Desai - Last Filed: 12/17/17 12:00> - Attending Attestation The exam, history, and the medical decision-making described in the above note were completed with the assistance of the mid-level provider. I reviewed and agree with the findings presented. I attest that I had a [id number] encounter with the patient on the same day, and personally performed and documented my assessment and findings in the medical record. Discussed at length again with patient and who is healthcare proxy regarding the risks involved with the craniotomy for neoplasm resection including worsening weakness and visual deficits and overall level of alertness. There is also an increased risk for respiratory failure with ventilator dependency, infection, bleeding, stroke among other complications including . A gross total resection may not be achievable but we will attempt a maximal safe resection to be followed with the radiation treatment. They understand and requested we proceed and gave informed consent. Surgery scheduled for tomorrow morning. <Antonio Kimball - Last Filed: 12/17/17 18:24>
--- NOTE | 2017-12-17 12:36 | P.PNONC ---
Subjective Interval history: Afebrile. Pt standing with max assist for physical therapy. He has no complaints at this time. He quickly drifts to sleep once back in bed. His significant other is at the bedside. They are still deciding on whether to proceed with neurosurgery. Pt requests to see the mass in his brain. I have showed him his CT scan. Discussed with pt's RN. Objective Vital Signs/Intake & Output: Vital Signs 12/16/17 16:00 12/16/17 20:00 12/17/17 00:00 Temperature 98 F 98.7 F Pulse Rate 52 L 57 L 50 L Respiratory Rate 20 20 20 Blood Pressure 128/63 139/77 169/79 H Pulse Oximetry 96 94 L 95 12/17/17 04:00 12/17/17 08:00 Temperature 97.9 F 97.5 F L Pulse Rate 57 L 53 L Respiratory Rate 20 14 Blood Pressure 170/77 H 175/80 H Pulse Oximetry 99 Intake & Output 12/16/17 12/17/17 12/17/17 18:59 06:59 18:59 Intake Total 240 / 240 Output Total 600 / 600 100 / 100 Balance -360 / -360 -100 / -100 Intake: Oral 240 / 240 Output: Urine 600 / 600 100 / 100 Other: # Voids 1 # Incontinent Voids 2 # Urine Diapers 1 Date of Last Bowel Movement 12/15/17 12/16/17 # Bowel Movements 1 Result Diagrams: 12/15/17 09:10 12/15/17 09:10 Medications: Active Medications Generic Name Dose Route Start Last Admin Trade Name Freq PRN Reason Stop Dose Admin Amlodipine Besylate 10 mg 12/17/17 09:00 12/17/17 10:46 Norvasc PO 10 mg DAILY AUGUSTUS Administration Budesonide/Formoterol Fumarate 2 puff 12/11/17 21:00 12/16/17 20:28 Symbicort 160/4.5 Mcg Inh INH 2 puff BID AUGUSTUS Administration Clonidine HCl 0.1 mg 12/12/17 09:04 12/15/17 03:56 Catapres PO 0.1 mg Q6H PRN Administration SBP>180, DBP>95 Dexamethasone Sodium Phosphate 4 mg 12/12/17 00:00 12/17/17 12:23 Decadron Inj IV.PUSH 4 mg Q6HR AUGUSTUS Administration Gabapentin 300 mg 12/11/17 21:00 12/17/17 08:52 Neurontin PO 300 mg BID AUGUSTUS Administration Haloperidol Lactate 0.5 mg 12/16/17 09:14 12/16/17 18:44 Haldol Inj IV.PUSH 0.5 mg Q6H PRN Administration ANXIETY AND/OR AGITATION Sodium Chloride 1,000 mls @ 42 mls/hr 12/11/17 16:30 12/16/17 16:14 Ns Inj IV.CONT Not Given .[id number] AUGUSTUS Lisinopril 5 mg 12/15/17 11:00 12/17/17 10:46 Prinivil PO 5 mg DAILY AUGUSTUS Administration Olanzapine 5 mg 12/12/17 09:00 12/17/17 08:52 Zyprexa PO 5 mg DAILY AUGUSTUS Administration Polyethylene Glycol 17 gm 12/13/17 13:45 12/17/17 08:54 Miralax PO Not Given DAILY AUGUSTUS Pravastatin Sodium 20 mg 12/12/17 09:00 12/17/17 08:52 Pravachol PO 20 mg DAILY AUGUSTUS Administration Senna/Docusate Sodium 1 tab 12/11/17 21:00 12/17/17 08:52 Roseann-Colace PO 1 tab BID AUGUSTUS Administration Sertraline HCl 100 mg 12/12/17 09:00 12/17/17 08:52 Zoloft PO 100 mg DAILY AUGUSTUS Administration Tramadol HCl 50 mg 12/12/17 10:41 12/12/17 21:11 Ultram PO 50 mg Q8H PRN Administration PAIN SCALE 1 TO 10 Objective Remarks: GENERAL: Elderly male patient, standing with physical therapy, in no acute distress. SKIN: Warm and dry. HEAD: Normocephalic. EYES: No scleral icterus. No injection or drainage. NECK: Supple, trachea midline. CARDIOVASCULAR: Regular rate and rhythm without murmurs. RESPIRATORY: Posterior breath sounds equal bilaterally, crackles to bilateral bases. No accessory muscle use. GASTROINTESTINAL: Abdomen soft, non-tender, nondistended. EXTREMITIES: No cyanosis, or edema. SCD's in place to bilateral LE. MUSCULOSKELETAL: Adequate muscle tone. NEUROLOGICAL: No obvious focal deficit. Awake, lethargic. PSYCHIATRIC: Calm. 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 The patient was residing at [facility] and unfortunately fell forward out of his wheelchair hitting his head and was brought into the emergency room. CT of the head showed a 3.7 x 5.1 cm mass involving the posterior aspect of the right temporal cortex and the right occipital cortex. This is highly suspicious for metastatic small cell lung cancer. However CT of the chest, abdomen and pelvis did not show any recurrent disease or metastatic disease. We cannot totally rule out primary CARE PROCESS MANAGER neoplasm. 1. Brain mass, highly suspicious for metastatic small cell lung cancer. Neurosurgery and radiation oncology are following. 2. According to RN neuro surgery is awaiting patients decision to proceed with mass resection, possibly tomorrow. Pt's spouse is leaning towards surgery, however, stating that the pt has not yet decided. Pt seen by Dr. Lopez on Sunday, however spouse was not present. He is waiting to discuss the plan further with him today. 3. Continue Decadron for vasogenic edema. 4. Continue supportive care. - Attending Statement The exam, history, and the medical decision-making described in the above note were completed with the assistance of the mid-level provider. I reviewed and agree with the findings presented. I attest that I had a [id number] encounter with the patient on the same day, and personally performed and documented my assessment and findings in the medical record. Patient's mental status has improved. He is alert oriented 3 when I saw him this afternoon. His is at the bedside. We review the radiology finding again. We discussed the treatment option which include surgical resection of the brain mass followed by radiation versus radiation alone versus best supportive care with hospice. We discussed the pros and cons of each approach. At this point they are not ready for hospice and patient wants further treatment. I told him that with surgical resection of the brain mass we could get more tissue for pathology. I told him the brain masses most likely metastatic small cell lung cancer but there are no apparent recurrent disease elsewhere noted on CT scan of the chest, abdomen pelvis. There is a small chance that the brain mass could be some other pathology. I also told him surgical resection could debulk the mass and possibly could make the radiation more effective. They also understand there is possibility of surgical risk with complication. After some discussion they have decided to proceed with resection of the brain mass. I have told the nursing staff to inform neurosurgery.
--- NOTE | 2017-12-17 14:43 | P.PN ---
Subjective Interval history: Follow-up on patient status post mechanical fall at home, brain mass. Patient seen and examined. Patient encountered lying awake in his bed watching TV. is at the bedside. Patient denies any acute medical complaints. States he feels well. Denies any headache, dizziness, weakness, N/T, N/V, chest pain, shortness of breath or abdominal pain. Physical Exam Vital signs: Vital Signs 12/16/17 16:00 12/16/17 20:00 12/17/17 00:00 Temperature 98 F 98.7 F Pulse Rate 52 L 57 L 50 L Respiratory Rate 20 20 20 Blood Pressure 128/63 139/77 169/79 H Pulse Oximetry 96 94 L 95 12/17/17 04:00 12/17/17 08:00 12/17/17 12:00 Temperature 97.9 F 97.5 F L 97.7 F Pulse Rate 57 L 50 L 53 L Respiratory Rate 20 14 18 Blood Pressure 170/77 H 175/80 H 113/57 L Pulse Oximetry 99 93 L Intake & Output 12/16/17 12/17/17 12/17/17 18:59 06:59 18:59 Intake Total 240 / 240 Output Total 600 / 600 100 / 100 Balance -360 / -360 -100 / -100 Intake: Oral 240 / 240 Output: Urine 600 / 600 100 / 100 Other: # Voids 1 # Incontinent Voids 2 # Urine Diapers 1 Date of Last Bowel Movement 12/15/17 12/16/17 12/16/17 # Bowel Movements 1 Narrative: GENERAL: WDWN elderly male patient. Awake and alert. Appears comfortable lying in bed, in 2 point soft wrist restraints. Not in any acute distress. is at the bedside. SKIN: Warm and dry. No rash. HEENT: Normocephalic. Pupils equal and round. No scleral icterus. No injection or drainage. No nasal bleeding or discharge. Mucous membranes pink and moist. NECK: Trachea midline. CARDIOVASCULAR: Bradycardia. +Systolic murmur. RESPIRATORY: No accessory muscle use. Clear to auscultation. Breath sounds equal bilaterally. GASTROINTESTINAL: Abdomen soft, non-tender, nondistended. MUSCULOSKELETAL: Extremities without clubbing, cyanosis, or edema. No obvious deformities. NEUROLOGICAL: Awake and alert. No obvious cranial nerve deficits. Motor grossly within normal limits. Able to move all extremities spontaneously. Normal speech. PSYCHIATRIC: Appropriate mood and affect; insight and judgment normal. Results - Labs CBC & Chem 7: 12/15/17 09:10 12/15/17 09:10 Assessment and Plan - Plan 77-year-old male with PMH of squamous cell CA, dementia who presents the emergency room after he suffered a mechanical fall. S/p mechanical fall Brain mass hx of small cell lung ca s/p concurrent chemotherapy and radiation CT head 3.7 x 5.1 cm mass involving the posterior aspect of the right temporal cortex and the right occipital cortex. There is surrounding vasogenic edema. This is highly suspicious for malignancy. Lesion is new compared to previous CT scan dated 04/23/2017. CT cervical spine shows degenerative changes but no acute fracture or destructive lesion MRI brain shows enhancing mass in right temporal lobe suspicious for metastatic disease Oncology following, appreciate assistance. Recommends resection with radiation if patient wishes aggressive treatment, hospice if not. Poor prognosis. Radiation oncology following. POA was not present during initial evaluation and is awaiting to speak with them today. Neurosurgery following, appreciate assistance. POA has decided on surgery and patient is tentatively on the schedule for tomorrow for resection. Continue on IV Decadron Palliative care following for goals of care, appreciate assistance seizure precautions Bradycardia, asymptomatic Atenolol discontinued, HR improved EKG shows sinus bradycardia ECHO EF 55-60% Sundeep neg x 3 TSH 0.663 continuous cardiac monitoring Hypertension, controlled BP on the low side Decrease dose of Norvasc to 5 mg daily. Continue lisinopril 5 mg daily Clonidine as needed with parameters Continue to monitor BP trend and adjust treatment accordingly Balance instability and cognitive dysfunction s/p cranial irradiation Fall precautions continue with PT/OT increased agitation at night pulled out his IV Low dose Haldol prn soft restraints as needed COPD, not in acute exacerbation continue with bronchodilator therapy Duonebs scheduled q8hrs continue to monitor respiratory status DVT ppx SCD/TEDs CI chemoppx at this time patient with brain mass Code Status: DNR Discussed Condition With: patient, nursing staff, , Dr. Hallman Discharge Planning: Not ready for discharge. Discharge pending Oncology and Neurosurgery clearance.
--- NOTE | 2017-12-17 16:17 | P.PNWCN ---
Wound Care Nurse Consult Description: Wound consult ordered by Randy MCFARLANE for wound management Communicated with: Art RN, Randy MCFARLANE Recommendation: 1. Manually reposition patient every 2 hours for comfort and offloading. 2. Cleanse sacral pressure injury with normal saline only! Wound cleanser deactivates Santyl by 87%. 3. Apply Santyl 2mm thick to wound base cover with saline moistened gauze cut to fit wound base secure with boarder gauze. 4. Change dressing daily or as needed for dislodgement/exudate. 5. Sign and date all dressings. Additional information: Patient was seen by telegraphic typewriter repairer and PT staff members for wound management.Patient required 2 person max assistance to reposition to left side .Patient Alert in bed oriented to self only.Sacral/coccyx region cleansed with remedy soft cloth barriers wipes air dried.Patient has stage 3 pressure injury to sacrum measuring 1.4cm x1.0cm x0.4cm Wound base is 50% moist pink non granular tissue 25% moist white fascia 25% yellow biofilm.Wound edges are well defined epibole noted circumferentially.Periwound intact and blanchable.Scant serosanguineous exudate noted with out odor.wound cleansed with normal saline Calazime cream applied to periwound and left open to air till Santyl available to floor then Art RN will apply dressing.Airrepy surface ordered. Wound/Pressure Injury - Patient Status Premedicated for Pain Prior to Dressing Change: No - Wound Left Upper Forehead Wound Assessment: Ongoing Coccyx Wound Staging: Stage III Wound Assessment: Ongoing Wound Type: Pressure Injury Is This a Chronic Wound: Yes Requested from Provider a Wound Care Consult: No Length: 1.4 Width: 1.0 Depth: 0.4 Wound Bed Appearance: [place], Red, Yellow Surrounding Tissue Appearance: Blanched/Dull, Erythema Surrounding Tissue Temperature: Cool Drainage Description: Serosanguinous Drainage Amount: Scant Drainage Odor: No Odor Dressing Status: Changed Cleansing Solution: Saline Topical: Enzymatic Debridement Ointment Wound Packing Type: Gauze Pads Primary Dressing: Adhesive Dressing Wound Dressing Change Date: 12/17/17 Incision - Patient Status Premedicated for Pain Prior to Dressing Change: No
[2017-12-17] MEDS: Collagenase Oint 30 GM Tube TOPICAL SCH (18:09)
[2017-12-17] MEDS ORDERED: Metoprolol Tartrate 25 MG Tablet PO ONE (19:06)
[2017-12-17] MEDS ORDERED: Chlorhexidine Gluconate 2% 1 Pack (2 Cloths) TOPICAL ONE (19:06)
[2017-12-17] MEDS ORDERED: Sodium Chlor 0.9% Inj 500 ML IV.SIG SCH (20:00)
[2017-12-18] MEDS: Sod Chloride 0.9% Inj 1,000 ML IV.CONT SCH (04:16)
[2017-12-18] MEDS ORDERED: Bupivacaine/Epinephrine 0.5% Inj 50 ML Vial ONE (07:19)
[2017-12-18] MEDS ORDERED: Thrombin Topical Soln 5,000 UNIT Vial TOPICAL ONE (07:20)
[2017-12-18] MEDS ORDERED: Gelatin Size 100 Topical Foam ONE (07:20)
--- NOTE | 2017-12-18 07:55 | P.PNONC ---
Subjective Interval history: Patient is awaiting to go to the operating room. He is a little anxious. His is at the bedside. Patient denies any headache. He also denies any chest pain or shortness of breath. Objective Vital Signs/Intake & Output: Vital Signs 12/17/17 08:00 12/17/17 12:00 12/17/17 16:00 Temperature 97.5 F L 97.7 F 98.1 F Pulse Rate 50 L 53 L 58 L Respiratory Rate 14 18 16 Blood Pressure 175/80 H 113/57 L 132/60 Pulse Oximetry 99 93 L 94 L 12/17/17 21:52 12/18/17 00:00 12/18/17 04:00 Temperature 97.2 F L 97.8 F 97.7 F Pulse Rate 57 L 52 L 89 Respiratory Rate 15 16 18 Blood Pressure 158/71 H 179/74 H 154/73 H Pulse Oximetry 93 L 94 L 97 Intake & Output 12/17/17 12/18/17 12/18/17 18:59 06:59 18:59 Weight 86 kg Other: # Incontinent Voids 4 Date of Last Bowel Movement 12/16/17 12/16/17 Result Diagrams: 12/15/17 09:10 12/15/17 09:10 Laboratory Results: Laboratory Results - last 24 hr 12/17/17 12/18/17 20:38 07:06 POC Glucose 110 Blood Type O Positive Blood Type Recheck Required Antibody Screen Negative Medications: Active Medications Generic Name Dose Route Start Last Admin Trade Name Freq PRN Reason Stop Dose Admin Budesonide/Formoterol Fumarate 2 puff 12/11/17 21:00 12/17/17 21:26 Symbicort 160/4.5 Mcg Inh INH 2 puff BID AUGUSTUS Administration Clonidine HCl 0.1 mg 12/12/17 09:04 12/15/17 03:56 Catapres PO 0.1 mg Q6H PRN Administration SBP>180, DBP>95 Collagenase 1 applicatio 12/17/17 15:00 12/17/17 18:09 Santyl Oint TOPICAL Not Given DAILY AUGUSTUS Dexamethasone Sodium Phosphate 4 mg 12/12/17 00:00 12/18/17 07:17 Decadron Inj IV.PUSH 4 mg Q6HR AUGUSTUS Administration Gabapentin 300 mg 12/11/17 21:00 12/17/17 21:26 Neurontin PO 300 mg BID AUGUSTUS Administration Haloperidol Lactate 0.5 mg 12/16/17 09:14 12/16/17 18:44 Haldol Inj IV.PUSH 0.5 mg Q6H PRN Administration ANXIETY AND/OR AGITATION Sodium Chloride 1,000 mls @ 42 mls/hr 12/11/17 16:30 12/18/17 04:16 Ns Inj IV.CONT Not Given .[id number] AUGUSTUS Sodium Chloride 500 mls @ 30 mls/hr 12/17/17 20:00 12/18/17 07:16 Ns Inj IV.SIG Not Given .Q10H AUGUSTUS Lactated Ringer's 1,000 mls @ 30 mls/hr 12/17/17 19:15 12/18/17 06:55 Lr 1000 Ml Inj IV.SIG 12/18/17 19:14 30 mls/hr .Q24H AUGUSTUS Administration Lisinopril 5 mg 12/15/17 11:00 12/17/17 10:46 Prinivil PO 5 mg DAILY AUGUSTUS Administration Olanzapine 5 mg 12/12/17 09:00 12/17/17 08:52 Zyprexa PO 5 mg DAILY AUGUSTUS Administration Polyethylene Glycol 17 gm 12/13/17 13:45 12/17/17 08:54 Miralax PO Not Given DAILY AUGUSTUS Pravastatin Sodium 20 mg 12/12/17 09:00 12/17/17 08:52 Pravachol PO 20 mg DAILY AUGUSTUS Administration Senna/Docusate Sodium 1 tab 12/11/17 21:00 12/17/17 21:26 Roseann-Colace PO 1 tab BID AUGUSTUS Administration Sertraline HCl 100 mg 12/12/17 09:00 12/17/17 08:52 Zoloft PO 100 mg DAILY AUGUSTUS Administration Tramadol HCl 50 mg 12/12/17 10:41 12/12/17 21:11 Ultram PO 50 mg Q8H PRN Administration PAIN SCALE 1 TO 10 Objective Remarks: GENERAL: Well-nourished, well-developed patient. SKIN: Warm and dry. HEAD: Normocephalic. EYES: No scleral icterus. No injection or drainage. NECK: Supple, trachea midline. No JVD or lymphadenopathy. LYMPHATIC: No adenopathy. CARDIOVASCULAR: Regular rate and rhythm without murmurs. RESPIRATORY: Breath sounds equal bilaterally. No accessory muscle use. GASTROINTESTINAL: Abdomen soft, non-tender, nondistended. EXTREMITIES: No cyanosis, or edema. MUSCULOSKELETAL: Adequate muscle tone. NEUROLOGICAL: No obvious focal deficit. Awake, alert, and oriented x3. PSYCHIATRIC: Appropriate mood and affect; insight and judgment normal. He is mildly anxious. 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 The patient was residing at [facility] and unfortunately fell forward out of his wheelchair hitting his head and was brought into the emergency room. CT of the head showed a 3.7 x 5.1 cm mass involving the posterior aspect of the right temporal cortex and the right occipital cortex. This is highly suspicious for metastatic small cell lung cancer. However CT of the chest, abdomen and pelvis did not show any recurrent disease or metastatic disease. We cannot totally rule out primary [employer] neoplasm. 1. Brain mass, highly suspicious for metastatic small cell lung cancer. However cannot totally rule out primary [employer] neoplasm. Patient is going to have resection of the brain mass today. We will have the tissue diagnosis. 2. He is going to need consolidation radiation when recovered from the brain surgery. 3. Continue Decadron for vasogenic edema. 4. Continue supportive care. 5. Discussed with patient and his .
[2017-12-18] MEDS ORDERED: Lidocaine PF 1% Inj 5 ML Syringe OTHER ONE (08:30)
[2017-12-18] MEDS ORDERED: hydrALAZINE HCl Inj 20 MG/ML Vial IV.PUSH ONE (08:30)
[2017-12-18] MEDS ORDERED: Glycopyrrolate Inj 1 MG/5 ML Syringe IV.PUSH ONE (08:30)
[2017-12-18] MEDS ORDERED: Sugammadex Inj 200 MG/2 ML Vial IV.PUSH ONE (09:58)
[2017-12-18] MEDS ORDERED: Menthol 5.8 MG Lozenge BUCCAL PRN (11:25)
[2017-12-18] MEDS ORDERED: Potassium Chlor 20 mEq Premix 20 MEQ/100 ML PIGGYBACK IV.SIG PRN (11:25)
[2017-12-18] MEDS ORDERED: Calcium Gluconate Inj 1 GM in Sodium Chlor 0.9% Inj 100 ML IV.SIG PRN (11:25)
[2017-12-18] MEDS ORDERED: Aluminum/Magnesium/Simethacone Susp 30 ML UDC PO PRN (11:25)
[2017-12-18] MEDS ORDERED: Labetalol HCl Inj 100 MG/20 ML Vial IV.PUSH PRN (11:25)
[2017-12-18] MEDS ORDERED: Magnesium Sulfate Inj 2 GM in Sodium Chlor 0.9% Inj 96 ML IV.SIG PRN (11:25)
--- NOTE | 2017-12-18 11:38 | P.OP ---
- Preoperative Diagnosis (1) Brain tumor Date of procedure: 12/18/17 Procedure: Right craniotomy for neoplasm resection; stereotactic BrainLab navigation guidance; microsurgical technique Anesthesia: GETA Surgeon: Antonio Kimball MD Track Welder: Moira Pinzon Estimated blood loss (mL): 100 Operation and Findings: Following initiation of general endotracheal anesthesia the patient had invasive lines and Chaudhry catheter in place along with sequential compression device. A gram of vancomycin and Keppra as well as 10 mg Decadron was administered intravenously and he was positioned supine with the right shoulder elevated on a roll and head turned to the left side and secured in the [place] 3 pin headrest. The BrainLab navigation system was then registered with external landmarks and good accuracy confirmed. A right curvilinear temporoparietal incision area head shaved and prepped with ChloraPrep and sterilely draped in the usual sterile fashion. Incision was then made after infiltrating the scalp was 0.5% Marcaine with epinephrine solution a skin incision made and Sharla clips were used at the scalp edges for hemostasis and the flap retracted with hooks. Right temporalis muscle and fascia was also incised and detached from the temporal and occipital bone and retracted with hooks. With an automated piping manager posterior temporal bur hole made and then with the craniotome the bone flap was elevated exposing the temporal parieto- occipital area. The dura opened in a cruciate format and bone holes placed in the craniotomy edges with 4-0 Nurolon dural tacking stitches for hemostasis. Significant brain swelling was noted at this point and further dissection was undertaken using microtechnique with microscope medication. A corticectomy about 2 cm was made at the posterior temporal occipital area overlying the tentorium and subcortical dissection identified at the anterior border of the mass which is localized with the navigation system also. Resection of this mass was undertaken using microtechnique microscope magnification along with the BrainLab navigation guidance. The mass did not appear to have a distinct border between the brain and the mass and was very infiltrative in nature. Initial debulking undertaken in the middle where the vas was grayish in coloration and somewhat necrotic and subsequent circumferential dissection extending from the posterior temporal lobe to the occipital lobe all the way deep down to the occipital horn of the lateral ventricle with a gross total resection achieved. Fresh frozen specimen sent was consistent with high-grade neoplasm and rest of the specimens were sent for permanent pathology sections although most of the mass was suctioned out. Bipolar cautery used for hemostasis in the resection bed along with Gelfoam and thrombin which was then lined with Surgicel and no bleeding was encountered at this point. The brain was very relaxed and pulsatile at this point. The resection bed cavity was filled with saline solution and the dura approximately using 4 Nurolon sutures with a central dural tacking stitch. Bone flap approximated using Seeley mini plates and bur hole covers. The area was then copiously irrigated. The temporalis fascia was approximated and using 2-0 Vicryl sutures and the galea reapproximated using 3-0 Vicryl interrupted sutures and final scalp closure was with massiel. The El head was then removed and a sterile pressing dressing applied. There were no intraoperative complications and all sponge and needle count was correct at the end of the procedure. Estimated blood loss about 100 cc. Patient was extubated and taken to the recovery room.
[2017-12-18] MEDS ORDERED: fentaNYL Citrate Inj 100 MCG/2 ML Ampul ONE (11:40)
[2017-12-18] MEDS ORDERED: *morphine SULFATE 4 MG/ML PERIprocedure ONLY ONE (12:10)
[2017-12-18 12:15] LABS: Baso % (Auto) 0.1 % (0.0-2.0); Hematocrit 34.7 % (39.0-51.0); Hemoglobin 11.1 gm/dL (13.0-17.0); Lymph % (Auto) 13.6 % (9.0-44.0); Mean Corpuscular HGB Conc 32.1 % (32.0-36.0); Mean Corpuscular Hemoglobin 26.3 pg (27.0-34.0); Mean Platelet Volume 8.8 fL (7.0-11.0); Mono # (Auto) 0.2 th/mm3 (0.0-0.9); Mono % (Auto) 2.5 % (0.0-8.0); Neut # (Auto) 6.1 th/mm3 (1.8-7.7); Neut % (Auto) 83.8 % (16.0-70.0); Platelet Count 138 th/mm3 (150-450); Red Blood Count 4.23 mil/mm3 (4.50-5.90); Red Cell Distribution Width 16.5 % (11.6-17.2); White Blood Count 7.3 th/mm3 (4.0-11.0)
[2017-12-18] MEDS ORDERED: *Ondansetron Inj 4 MG/2 ML Vial PERIprocedural Use ONLY ONE (12:27)
[2017-12-18 12:31] LABS: Anion Gap 8 meq/L (5-15); Blood Urea Nitrogen 27 mg/dL (7-18); Calcium 7.8 mg/dL (8.5-10.1); Carbon Dioxide 27.4 meq/L (21.0-32.0); Chloride 106 meq/L (98-107); Glomerular Filtration Rate Greater Than 89 mL/min (>89); Glucose,Random 121 mg/dL (74-106); Magnesium 2.2 mg/dL (1.5-2.5); Potassium 4.1 meq/L (3.5-5.1); Sodium 141 meq/L (136-145)
--- NOTE | 2017-12-18 16:18 | P.PN ---
Subjective Interval history: Follow-up on patient status post mechanical fall at home, brain mass. Patient seen and examined. Patient s/p right craniotomy for neoplasm resection by Dr. Kimball earlier today. Patient encountered in his room sleeping. He is minimally responsive. Did respond to his name but did not open his eyes. He does not appear to be in any distress. Appears comfortable. VSS except for bradycardia which is not new. Satting 97% on 3LNC. Physical Exam Vital signs: Vital Signs 12/17/17 21:52 12/18/17 00:00 12/18/17 04:00 Temperature 97.2 F L 97.8 F 97.7 F Pulse Rate 57 L 52 L 89 Respiratory Rate 15 16 18 Blood Pressure 158/71 H 179/74 H 154/73 H Pulse Oximetry 93 L 94 L 97 12/18/17 11:29 12/18/17 11:45 12/18/17 12:00 Temperature 97.3 F L 98.1 F 98.1 F Pulse Rate 60 54 L 51 L Respiratory Rate 14 14 14 Blood Pressure 157/70 H 140/35 L 142/64 H Pulse Oximetry 100 96 97 12/18/17 12:15 12/18/17 12:30 12/18/17 12:45 Temperature 98.1 F 98.1 F 98.1 F Pulse Rate 50 L 51 L 50 L Respiratory Rate 14 14 14 Blood Pressure 126/58 L 132/61 126/62 Pulse Oximetry 97 97 96 12/18/17 15:03 Temperature Pulse Rate Respiratory Rate Blood Pressure Pulse Oximetry 97 Intake & Output 12/17/17 12/18/17 12/18/17 18:59 06:59 18:59 Weight 86 kg Other: # Incontinent Voids 4 Date of Last Bowel Movement 12/16/17 12/16/17 Narrative: GENERAL: WDWN elderly male patient. Sedated. Does respond to saying his name but does not open his eyes. Not in any acute distress. SKIN: Warm and dry. No rash. HEAD: s/p right craniotomy, postop dressing in place appears C/D/I. NECK: Trachea midline. CARDIOVASCULAR: Bradycardia. +Systolic murmur. RESPIRATORY: No accessory muscle use. Poor effort. Clear to auscultation. Breath sounds equal bilaterally. GASTROINTESTINAL: Abdomen soft, non-tender, nondistended. MUSCULOSKELETAL: Extremities without clubbing, cyanosis, or edema. No obvious deformities. NEUROLOGICAL: Somnolent. Not following commands. PSYCHIATRIC: Unable to assess at this time. Results - Labs CBC & Chem 7: 12/18/17 11:45 12/18/17 11:45 Laboratory Results - last 24 hr 12/17/17 12/18/17 12/18/17 20:38 07:06 11:45 WBC 7.3 RBC 4.23 L Hgb 11.1 L Hct 34.7 L MCV 82.0 MCH 26.3 L MCHC 32.1 RDW 16.5 Plt Count 138 L MPV 8.8 Neut % (Auto) 83.8 H Lymph % (Auto) 13.6 [place] % (Auto) 2.5 Eos % (Auto) 0.0 Baso % (Auto) 0.1 Neut # (Auto) 6.1 Lymph # (Auto) 1.0 [place] # (Auto) 0.2 Eos # (Auto) 0.0 Baso # (Auto) 0.0 WBC Differential . Differential Comment Auto diff final Sodium Potassium Chloride Carbon Dioxide Anion Gap BUN Creatinine Estimated GFR POC Glucose 110 Random Glucose Calcium Magnesium Blood Type O Positive Blood Type Recheck Required Antibody Screen Negative 12/18/17 11:45 WBC RBC Hgb Hct MCV MCH MCHC RDW Plt Count MPV Neut % (Auto) Lymph % (Auto) [place] % (Auto) Eos % (Auto) Baso % (Auto) Neut # (Auto) Lymph # (Auto) [place] # (Auto) Eos # (Auto) Baso # (Auto) WBC Differential Differential Comment Sodium 141 Potassium 4.1 Chloride 106 Carbon Dioxide 27.4 Anion Gap 8 BUN 27 H Creatinine 0.66 Estimated GFR Greater than 89 POC Glucose Random Glucose 121 H Calcium 7.8 L Magnesium 2.2 Blood Type Blood Type Recheck Antibody Screen - Procedures - Preoperative Diagnosis (1) Brain tumor Date of procedure: 12/18/17 Procedure: Right craniotomy for neoplasm resection; stereotactic BrainLab navigation guidance; microsurgical technique Anesthesia: NEILA Surgeon: Atnonio Kimball MD Roofing Supervisor: Moira Pinzon Estimated blood loss (mL): 100 Operation and Findings: Following initiation of general endotracheal anesthesia the patient had invasive lines and Chaudhry catheter in place along with sequential compression device. A gram of vancomycin and Keppra as well as 10 mg Decadron was administered intravenously and he was positioned supine with the right shoulder elevated on a roll and head turned to the left side and secured in the [place] 3 pin headrest. The [employer] navigation system was then registered with external landmarks and good accuracy confirmed. A right curvilinear temporoparietal incision area head shaved and prepped with ChloraPrep and sterilely draped in the usual sterile fashion. Incision was then made after infiltrating the scalp was 0.5% Marcaine with epinephrine solution a skin incision made and Sharla clips were used at the scalp edges for hemostasis and the flap retracted with hooks. Right temporalis muscle and fascia was also incised and detached from the temporal and occipital bone and retracted with hooks. With an automated electrician station assistant posterior temporal bur hole made and then with the craniotome the bone flap was elevated exposing the temporal parieto- occipital area. The dura opened in a cruciate format and bone holes placed in the craniotomy edges with 4-0 Nurolon dural tacking stitches for hemostasis. Significant brain swelling was noted at this point and further dissection was undertaken using microtechnique with microscope medication. A corticectomy about 2 cm was made at the posterior temporal occipital area overlying the tentorium and subcortical dissection identified at the anterior border of the mass which is localized with the navigation system also. Resection of this mass was undertaken using microtechnique microscope magnification along with the BrainLab navigation guidance. The mass did not appear to have a distinct border between the brain and the mass and was very infiltrative in nature. Initial debulking undertaken in the middle where the vas was grayish in coloration and somewhat necrotic and subsequent circumferential dissection extending from the posterior temporal lobe to the occipital lobe all the way deep down to the occipital horn of the lateral ventricle with a gross total resection achieved. Fresh frozen specimen sent was consistent with high-grade neoplasm and rest of the specimens were sent for permanent pathology sections although most of the mass was suctioned out. Bipolar cautery used for hemostasis in the resection bed along with Gelfoam and thrombin which was then lined with Surgicel and no bleeding was encountered at this point. The brain was very relaxed and pulsatile at this point. The resection bed cavity was filled with saline solution and the dura approximately using 4 Nurolon sutures with a central dural tacking stitch. Bone flap approximated using [employer] mini plates and bur hole covers. The area was then copiously irrigated. The temporalis fascia was approximated and using 2-0 Vicryl sutures and the galea reapproximated using 3-0 Vicryl interrupted sutures and final scalp closure was with massiel. The El head was then removed and a sterile pressing dressing applied. There were no intraoperative complications and all sponge and needle count was correct at the end of the procedure. Estimated blood loss about 100 cc. Patient was extubated and taken to the recovery room. Documented By: Antonio Kimball MD 12/18/17 1132 Signed By: Assessment and Plan - Plan 77-year-old male with PMH of squamous cell CA, dementia who presents the emergency room after he suffered a mechanical fall. S/p mechanical fall Brain mass suspicious metastatic small cell lung cancer hx of small cell lung ca s/p concurrent chemotherapy and radiation Neurosurgery following, appreciate assistance. s/p right craniotomy for neoplasm resection earlier today by Dr. Kimball. Postop CT ordered for tomorrow am Neuro checks Follow up on pathology results Oncology following, appreciate assistance. Radiation oncology following. Plan for radiation following recovery from brain surgery Continue on IV Decadron Palliative care following for goals of care, appreciate assistance seizure precautions Bradycardia, asymptomatic Atenolol discontinued, HR improved EKG shows sinus bradycardia ECHO EF 55-60% Sundeep neg x 3 TSH 0.663 continuous cardiac monitoring Hypertension, controlled Continue on Norvasc 5 mg daily and lisinopril 5 mg daily Clonidine as needed with parameters Continue to monitor BP trend and adjust treatment accordingly Balance instability and cognitive dysfunction s/p cranial irradiation Fall precautions continue with PT/OT increased agitation at night Low dose Haldol prn soft restraints as needed COPD, not in acute exacerbation continue with bronchodilator therapy Duonebs scheduled q8hrs continue to monitor respiratory status Stage 3 sacral pressure ulcer Wound care nurse following, continue wound care orders - 1. Manually reposition patient every 2 hours for comfort and offloading. 2. Cleanse sacral pressure injury with normal saline only! Wound cleanser deactivates Santyl by 87%. 3. Apply Santyl 2mm thick to wound base cover with saline moistened gauze cut to fit wound base secure with boarder gauze. 4. Change dressing daily or as needed for dislodgement/exudate. 5. Sign and date all dressings. DVT ppx SCD/TEDs CI chemoppx at this time patient with brain mass Code Status: DNR Discussed Condition With: patient, nursing staff, Dr. Hallman Discharge Planning: Not ready for discharge. Discharge pending clinical improvement, Oncology and Neurosurgery clearance.
[2017-12-18] MEDS: Budesonide-Formoterol 160/4.5 MCG 6 GM Inhaler INH SCH (17:44)
[2017-12-18] MEDS: Sertraline 100 MG Tablet PO SCH (17:44)
[2017-12-18] MEDS: amLODIPine 5 MG Tablet PO SCH (17:45)
[2017-12-18] MEDS: Senna/Docusate Sodium 8.6/50 MG Tablet PO SCH ×2 (17:45→20:42)
[2017-12-18] MEDS: Collagenase Oint 30 GM Tube TOPICAL SCH (17:45)
[2017-12-18] MEDS: Gabapentin 300 MG Capsule PO SCH ×2 (17:45→20:43)
[2017-12-18] MEDS: Lisinopril 5 MG Tablet PO SCH (17:45)
[2017-12-18] MEDS: Polyethylene Glycol 3350 17 GM Packet PO SCH (17:46)
[2017-12-19] MEDS: Budesonide-Formoterol 160/4.5 MCG 6 GM Inhaler INH SCH ×3 (01:33→21:55)
[2017-12-19 04:15] LABS: Baso % (Auto) 0.1 % (0.0-2.0); Hematocrit 31.3 % (39.0-51.0); Hemoglobin 10.2 gm/dL (13.0-17.0); Lymph # (Auto) 0.7 th/mm3 (1.0-4.8); Lymph % (Auto) 6.2 % (9.0-44.0); Mean Corpuscular HGB Conc 32.5 % (32.0-36.0); Mean Corpuscular Hemoglobin 26.4 pg (27.0-34.0); Mean Corpuscular Volume 81.2 fL (80.0-100.0); Mean Platelet Volume 8.6 fL (7.0-11.0); Mono # (Auto) 0.6 th/mm3 (0.0-0.9); Mono % (Auto) 5.4 % (0.0-8.0); Neut % (Auto) 88.3 % (16.0-70.0); Platelet Count 130 th/mm3 (150-450); Red Blood Count 3.85 mil/mm3 (4.50-5.90); Red Cell Distribution Width 16.3 % (11.6-17.2); White Blood Count 11.3 th/mm3 (4.0-11.0)
[2017-12-19 04:43] LABS: Albumin 2.3 g/dL (3.4-5.0); Anion Gap 6 meq/L (5-15); Aspartate Aminotransferase 14 U/L (15-37); Blood Urea Nitrogen 24 mg/dL (7-18); Calcium 7.9 mg/dL (8.5-10.1); Carbon Dioxide 30.3 meq/L (21.0-32.0); Chloride 106 meq/L (98-107); Glomerular Filtration Rate Greater Than 89 mL/min (>89); Glucose,Random 100 mg/dL (74-106); Magnesium 2.1 mg/dL (1.5-2.5); Potassium 4.5 meq/L (3.5-5.1); Sodium 142 meq/L (136-145)
[2017-12-19 04:44] LABS: Alanine Aminotransferase 31 U/L (12-78)
[2017-12-19 04:46] LABS: Alkaline Phosphatase 49 U/L (45-117); Total Protein 5.2 g/dL (6.4-8.2)
--- NOTE | 2017-12-19 04:52 | CT ---
EXAM DATE: 12/19/2017 4:29 AM EDT AGE/SEX: 77 years / Male INDICATIONS: Post operative CLINICAL DATA: This is the patient's initial encounter. Patient reports that signs and symptoms have been present for 1 day and indicates a pain score of Nonresponsive. MEDICAL/SURGICAL HISTORY: Non-responsive. Non-responsive. RADIATION DOSE: 66.34 CTDI (mGy) COMPARISON: [facility] [place], MR HEAD W & W/O CONTRAST, 12/13/2017. . TECHNIQUE: CT of the head without contrast. Using automated exposure control and adjustment of the mA and/or kV according to patient size, radiation dose was kept as low as reasonably achievable to ob tain optimal diagnostic quality images. DICOM format image data is available electronically for revi ew and comparison. FINDINGS: There has been interval right parietal craniotomy with brain tumor resection. There is some air prese nt in the operative bed and the adjacent extra-axial spaces. Mild persistent vasogenic edema. Minimal hemorrhagic or other spontaneous density in the posterior aspect of the operative bed. Contralateral left hemisphere is stable with periventricular white matter hypodensity chronic and wilian ign. Posterior fossa and brainstem structures are stable and unremarkable. CONCLUSION: Satisfactory postoperative appearance. . Electronically signed by: Neftaly Valenzuela MD 12/19/2017 4:50 AM EDT
--- NOTE | 2017-12-19 07:47 | P.PNONC ---
Subjective Interval history: Patient is postop day 1 of the resection of brain mass. He has mild headache. He is sleepy. He is easily arousable. He denies any chest pain or shortness of breath. Objective Vital Signs/Intake & Output: Vital Signs 12/18/17 11:29 12/18/17 11:45 12/18/17 12:00 Temperature 97.3 F L 98.1 F 98.1 F Pulse Rate 60 54 L 51 L Respiratory Rate 14 14 14 Blood Pressure 157/70 H 140/35 L 142/64 H Pulse Oximetry 100 96 97 12/18/17 12:15 12/18/17 12:30 12/18/17 12:45 Temperature 98.1 F 98.1 F 98.1 F Pulse Rate 50 L 51 L 50 L Respiratory Rate 14 14 14 Blood Pressure 126/58 L 132/61 126/62 Pulse Oximetry 97 97 96 12/18/17 14:00 12/18/17 15:03 12/18/17 16:00 Temperature 97.6 F Pulse Rate 46 L 46 L Respiratory Rate 14 12 Blood Pressure 133/54 L 133/63 Pulse Oximetry 97 97 97 12/18/17 20:00 12/19/17 00:00 12/19/17 04:00 Temperature 97.8 F 97.3 F L 98.3 F Pulse Rate 48 L 48 L 51 L Respiratory Rate 13 13 10 L Blood Pressure 121/59 L 144/61 H 165/70 H Pulse Oximetry 98 96 92 L Intake & Output 12/18/17 12/19/17 12/19/17 18:59 06:59 18:59 Intake Total 1305 / 1305 Output Total 1000 / 1000 Balance 305 / 305 Weight 103.3 kg Intake: IV 1305 / 1305 NS + KCl 20 mEq Inj 1,000 ML @ 1000 / 1000 80 mls/hr IV.CONT .[id number] [facility] Rx#:[id number] Ancef Inj 1,000 MG In NS Inj 200 / 200 100 ML @ 200 mls/hr IV.SIG Q8H [facility] Rx#:[id number] Keppra Inj 500 MG In NS Inj 100 105 / 105 ML @ 400 mls/hr IV.SIG Q12H [facility] Rx#:[id number] Output: Urine 1000 / 1000 Other: Date of Last Bowel Movement 12/16/17 12/16/17 Result Diagrams: 12/19/17 04:05 12/19/17 04:05 Laboratory Results: Laboratory Results - last 24 hr 12/18/17 12/18/17 12/19/17 11:45 11:45 04:05 WBC 7.3 11.3 H D RBC 4.23 L 3.85 L Hgb 11.1 L 10.2 L Hct 34.7 L 31.3 L MCV 82.0 81.2 MCH 26.3 L 26.4 L MCHC 32.1 32.5 RDW 16.5 16.3 Plt Count 138 L 130 L MPV 8.8 8.6 Neut % (Auto) 83.8 H 88.3 H Lymph % (Auto) 13.6 6.2 L [place] % (Auto) 2.5 5.4 Eos % (Auto) 0.0 0.0 Baso % (Auto) 0.1 0.1 Neut # (Auto) 6.1 10.0 H Lymph # (Auto) 1.0 0.7 L [place] # (Auto) 0.2 0.6 Eos # (Auto) 0.0 0.0 Baso # (Auto) 0.0 0.0 WBC Differential . . Differential Comment Auto diff final Auto diff final Sodium 141 Potassium 4.1 Chloride 106 Carbon Dioxide 27.4 Anion Gap 8 BUN 27 H Creatinine 0.66 Estimated GFR Greater than 89 Random Glucose 121 H Calcium 7.8 L Magnesium 2.2 Total Bilirubin AST ALT Alkaline Phosphatase Total Protein Albumin 12/19/17 04:05 WBC RBC Hgb Hct MCV MCH MCHC RDW Plt Count MPV Neut % (Auto) Lymph % (Auto) [place] % (Auto) Eos % (Auto) Baso % (Auto) Neut # (Auto) Lymph # (Auto) [place] # (Auto) Eos # (Auto) Baso # (Auto) WBC Differential Differential Comment Sodium 142 Potassium 4.5 Chloride 106 Carbon Dioxide 30.3 Anion Gap 6 BUN 24 H Creatinine 0.64 Estimated GFR Greater than 89 Random Glucose 100 Calcium 7.9 L Magnesium 2.1 Total Bilirubin 0.3 AST 14 L ALT 31 Alkaline Phosphatase 49 Total Protein 5.2 L D Albumin 2.3 L Imaging Studies: Impressions Head CT 12/19/17 00:00 CONCLUSION: Satisfactory postoperative appearance. . Medications: Active Medications Generic Name Dose Route Start Last Admin Trade Name Freq PRN Reason Stop Dose Admin Amlodipine Besylate 5 mg 12/18/17 09:00 12/18/17 17:45 Norvasc PO Not Given DAILY [facility] Budesonide/Formoterol Fumarate 2 puff 12/11/17 21:00 12/19/17 01:33 Symbicort 160/4.5 Mcg Inh INH 2 puff BID [facility] Administration Clonidine HCl 0.1 mg 12/12/17 09:04 12/15/17 03:56 Catapres PO 0.1 mg Q6H PRN Administration SBP>180, DBP>95 Collagenase 1 applicatio 12/17/17 15:00 12/18/17 17:45 Santyl Oint TOPICAL 1 applicatio DAILY [facility] Administration Dexamethasone Sodium Phosphate 4 mg 12/12/17 00:00 12/19/17 06:31 Decadron Inj IV.PUSH 4 mg Q6HR [facility] Administration Gabapentin 300 mg 12/11/17 21:00 12/18/17 20:43 Neurontin PO 300 mg BID [facility] Administration Haloperidol Lactate 0.5 mg 12/16/17 09:14 12/16/17 18:44 Haldol Inj IV.PUSH 0.5 mg Q6H PRN Administration ANXIETY AND/OR AGITATION Sodium Chloride 500 mls @ 30 mls/hr 12/17/17 20:00 12/18/17 07:16 Ns Inj IV.SIG Not Given .Q10H [facility] Cefazolin Sodium 1,000 mg/ 100 mls @ 200 mls/hr 12/18/17 16:00 12/19/17 02:05 Sodium Chloride IV.SIG 12/19/17 08:29 Infused Q8H [facility] Infusion Levetiracetam 500 mg/ Sodium 105 mls @ 400 mls/hr 12/18/17 21:00 12/18/17 21: 00 Chloride IV.SIG Infused Q12H [facility] Infusion Potassium Chloride/Sodium Chloride 1,000 mls @ 80 mls/hr 12/18/17 11:30 12/19 01:35 Ns + Kcl 20 Meq Inj IV.CONT 80 mls/hr .[id number] [facility] Administration Lisinopril 5 mg 12/15/17 11:00 12/18/17 17:45 Prinivil PO Not Given DAILY [facility] Olanzapine 5 mg 12/12/17 09:00 12/18/17 17:44 Zyprexa PO Not Given DAILY [facility] Polyethylene Glycol 17 gm 12/13/17 13:45 12/18/17 17:46 Miralax PO Not Given DAILY [facility] Pravastatin Sodium 20 mg 12/12/17 09:00 12/18/17 17:45 Pravachol PO Not Given DAILY [facility] Senna/Docusate Sodium 1 tab 12/11/17 21:00 12/18/17 20:42 Roseann-Colace PO 1 tab BID [facility] Administration Sertraline HCl 100 mg 12/12/17 09:00 12/18/17 17:44 Zoloft PO Not Given DAILY [facility] Objective Remarks: GENERAL: Well-nourished, well-developed patient. He is sleepy. SKIN: Warm and dry. HEAD: Normocephalic. Dressing is dry. EYES: No scleral icterus. No injection or drainage. NECK: Supple, trachea midline. No JVD or lymphadenopathy. LYMPHATIC: No adenopathy. CARDIOVASCULAR: Regular rate and rhythm without murmurs. RESPIRATORY: Breath sounds equal bilaterally. No accessory muscle use. GASTROINTESTINAL: Abdomen soft, non-tender, nondistended. EXTREMITIES: No cyanosis, or edema. SCDs in place. MUSCULOSKELETAL: Adequate muscle tone. NEUROLOGICAL: No obvious focal deficit. He is moving all 4 extremities. 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 The patient was residing at [facility] and unfortunately fell forward out of his wheelchair hitting his head and was brought into the emergency room. CT of the head showed a 3.7 x 5.1 cm mass involving the posterior aspect of the right temporal cortex and the right occipital cortex. This is highly suspicious for metastatic small cell lung cancer. However CT of the chest, abdomen and pelvis did not show any recurrent disease or metastatic disease. We cannot totally rule out primary [employer] neoplasm. 1. Brain mass, highly suspicious for metastatic small cell lung cancer. However cannot totally rule out primary [employer] neoplasm. Patient had a gross total resection of the brain mass December 18. Pathology is pending. Further management will depend on the final diagnosis. 2. He likely is going to need consolidation radiation when recovered from the brain surgery. 3. Continue Decadron for vasogenic edema. 4. Continue supportive care.
[2017-12-19] MEDS: Collagenase Oint 30 GM Tube TOPICAL SCH (08:19)
[2017-12-19] MEDS: Sertraline 100 MG Tablet PO SCH (08:21)
[2017-12-19] MEDS: Gabapentin 300 MG Capsule PO SCH ×2 (08:21→20:47)
[2017-12-19] MEDS: Senna/Docusate Sodium 8.6/50 MG Tablet PO SCH ×2 (08:21→20:47)
[2017-12-19] MEDS: Lisinopril 5 MG Tablet PO SCH (08:22)
[2017-12-19] MEDS: amLODIPine 5 MG Tablet PO SCH (09:02)
[2017-12-19] MEDS: Polyethylene Glycol 3350 17 GM Packet PO SCH (09:08)
--- NOTE | 2017-12-19 09:32 | P.PNNS ---
Subjective Interval history: Pt s/p Right craniotomy for neoplasm resection; stereotactic Brain[facility] navigation guidance; microsurgical technique on 12/18/17. He complains of mild headache. No n/v. He is fatigued. Follows commands. Moves all 4 extremities. Answers questions appropriately. <Kiet Desai - Last Filed: 12/19/17 09:25> Physical Exam Vital signs: Vital Signs 12/18/17 11:29 12/18/17 11:45 12/18/17 12:00 Temperature 97.3 F L 98.1 F 98.1 F Pulse Rate 60 54 L 51 L Respiratory Rate 14 14 14 Blood Pressure 157/70 H 140/35 L 142/64 H Pulse Oximetry 100 96 97 12/18/17 12:15 12/18/17 12:30 12/18/17 12:45 Temperature 98.1 F 98.1 F 98.1 F Pulse Rate 50 L 51 L 50 L Respiratory Rate 14 14 14 Blood Pressure 126/58 L 132/61 126/62 Pulse Oximetry 97 97 96 12/18/17 14:00 12/18/17 15:03 12/18/17 16:00 Temperature 97.6 F Pulse Rate 46 L 46 L Respiratory Rate 14 12 Blood Pressure 133/54 L 133/63 Pulse Oximetry 97 97 97 12/18/17 20:00 12/19/17 00:00 12/19/17 04:00 Temperature 97.8 F 97.3 F L 98.3 F Pulse Rate 48 L 48 L 51 L Respiratory Rate 13 13 10 L Blood Pressure 121/59 L 144/61 H 165/70 H Pulse Oximetry 98 96 92 L 12/19/17 08:00 12/19/17 08:22 Temperature 98.8 F Pulse Rate Respiratory Rate 12 Blood Pressure 105/60 Pulse Oximetry 92 L Intake & Output 12/18/17 12/19/17 12/19/17 18:59 06:59 18:59 Intake Total 1305 / 1305 0 / 0 Output Total 1000 / 1000 Balance 305 / 305 0 / 0 Weight 103.3 kg Intake: IV 1305 / 1305 NS + KCl 20 mEq Inj 1,000 ML @ 1000 / 1000 80 mls/hr IV.CONT .[id number] [facility] Rx#:[id number] Ancef Inj 1,000 MG In NS Inj 200 / 200 100 ML @ 200 mls/hr IV.SIG Q8H [facility] Rx#:[id number] Keppra Inj 500 MG In NS Inj 100 105 / 105 ML @ 400 mls/hr IV.SIG Q12H [facility] Rx#:[id number] Oral 0 / 0 Output: Urine 1000 / 1000 Other: Date of Last Bowel Movement 12/16/17 12/16/17 - Constitutional no acute distress, average body habitus - Routine HEENT Exam Head: Absent: normocephalic (Right craniotomy incision dry. Head bandaged.) Eye: Present: PERRL (Pupils 3mm bilaterally reactive bilaterally.). Absent: conjunctival icterus ENT: Present: oropharynx clear - Routine Neck Exam Present: trachea midline - Routine Respiratory Exam Present: CTA bilaterally. Absent: respiratory distress, rhonchi, wheezes - Routine Cardiovascular Exam Present: S1, S2, bradycardia. Absent: murmur - Routine Abdominal Exam Present: soft, normoactive bowel sounds. Absent: distended, firm - Routine Skin Exam Absent: cyanosis, erythema Comments: Incision is clean and dry without signs of infection. - Routine Neurological Exam Present: alert, altered mental status (mild. reportedly was confused and more agitated at night.), moving all extremities, normal speech. Absent: motor deficit - Routine Psychiatric Exam Present: cooperative. Absent: anxious, agitated Comments: Arouses easily but prefers eyes closed. <Kiet Desai - Last Filed: 12/19/17 09:25> Vital signs: Vital Signs 12/18/17 20:00 12/19/17 00:00 12/19/17 04:00 Temperature 97.8 F 97.3 F L 98.3 F Pulse Rate 48 L 48 L 51 L Respiratory Rate 13 13 10 L Blood Pressure 121/59 L 144/61 H 165/70 H Pulse Oximetry 98 96 92 L 12/19/17 08:00 12/19/17 08:22 12/19/17 09:00 Temperature 98.8 F Pulse Rate 45 L Respiratory Rate 12 Blood Pressure 105/60 Pulse Oximetry 92 L 12/19/17 12:00 Temperature 97.9 F Pulse Rate 48 L Respiratory Rate 11 L Blood Pressure 140/63 Pulse Oximetry 95 Intake & Output 12/18/17 12/19/17 12/19/17 18:59 06:59 18:59 Intake Total 1305 / 1305 105 / 105 Output Total 1000 / 1000 Balance 305 / 305 105 / 105 Weight 103.3 kg Intake: IV 1305 / 1305 105 / 105 NS + KCl 20 mEq Inj 1,000 ML @ 1000 / 1000 80 mls/hr IV.CONT .[id number] [facility] Rx#:[id number] Ancef Inj 1,000 MG In NS Inj 200 / 200 100 ML @ 200 mls/hr IV.SIG Q8H [facility] Rx#:[id number] Keppra Inj 500 MG In NS Inj 100 105 / 105 105 / 105 ML @ 400 mls/hr IV.SIG Q12H [facility] Rx#:[id number] Oral 0 / 0 Output: Urine 1000 / 1000 Other: Date of Last Bowel Movement 12/16/17 12/16/17 12/19/17 <Antonio Kimball - Last Filed: 12/19/17 17:23> Assessment and Plan - Assessment (1) Anxiety Code(s): F41.9 - Anxiety disorder, unspecified Status: Acute (2) Brain tumor Code(s): D49.6 - Neoplasm of unspecified behavior of brain Status: Acute (3) COPD (chronic obstructive pulmonary disease) Code(s): J44.9 - Chronic obstructive pulmonary disease, unspecified Status: Acute (4) Cranial irradiation Status: Acute (5) Debility Code(s): R53.81 - Other malaise Status: Acute (6) Dementia Code(s): F03.90 - Unspecified dementia without behavioral disturbance Status: Acute (7) Pain Code(s): R52 - Pain, unspecified Status: Acute - Plan A: 77yoM with history of small cell ca. 5 years ago treated including whole brain XRT. s/p fall and incidentally discovered to have a large right parieto- occipital mass on CT scan with vasogenic edema. MRI of the brain confirms a 5 x 3.1cm right temporal lobe mass with surrounding vasogenic edema. s/p Right craniotomy for neoplasm resection; stereotactic BrainLab navigation guidance; microsurgical technique on 12/18/17. Plan: Continue with neuro checks. Continue with Decadron 4mg IV q6 Continue to get oob with assistance. Monitoring vitals, pt with bradycardia. <Kiet Desai - Last Filed: 12/19/17 09:25> - Attending Attestation The exam, history, and the medical decision-making described in the above note were completed with the assistance of the mid-level provider. I reviewed and agree with the findings presented. I attest that I had a [id number] encounter with the patient on the same day, and personally performed and documented my assessment and findings in the medical record. Stable follow-up CT scan of the head and no new neurologic deficit. Continue with supportive care and mobilize with physical therapy as tolerated. <Antonio Kimball - Last Filed: 12/19/17 17:23>
--- NOTE | 2017-12-19 11:24 | P.PNPAL ---
Reason for Visit Reason for visit: a. To assist with evaluation and management of symptoms including: pain, debility, anxiety b. To assist medical decision maker(s) with: better understanding of current medical conditions; weighing benefits/burdens of medical treatment options; making medical treatment decisions. Subjective Subjective/Interval History: Pt resting in bed. at bedside. Reports pt didn't eat breakfast. Pt admits pain 4 out of 10 in head. Unable to further qualify. s/p resection cranial mass 12/18. Denies anxiety, dyspnea. Family/Friend Interactions: Pt's HCS expresses no questions or concerns. Advance Directives Living Will: Copy in medical record Health Care Surrogate: Copy in medical record Health Care Surrogate Name and Number: Osman Yuan Objective Vital Signs: Vital Signs 12/18/17 11:29 12/18/17 11:45 12/18/17 12:00 Temperature 97.3 F L 98.1 F 98.1 F Pulse Rate 60 54 L 51 L Respiratory Rate 14 14 14 Blood Pressure 157/70 H 140/35 L 142/64 H Pulse Oximetry 100 96 97 12/18/17 12:15 12/18/17 12:30 12/18/17 12:45 Temperature 98.1 F 98.1 F 98.1 F Pulse Rate 50 L 51 L 50 L Respiratory Rate 14 14 14 Blood Pressure 126/58 L 132/61 126/62 Pulse Oximetry 97 97 96 12/18/17 14:00 12/18/17 15:03 12/18/17 16:00 Temperature 97.6 F Pulse Rate 46 L 46 L Respiratory Rate 14 12 Blood Pressure 133/54 L 133/63 Pulse Oximetry 97 97 97 12/18/17 20:00 12/19/17 00:00 12/19/17 04:00 Temperature 97.8 F 97.3 F L 98.3 F Pulse Rate 48 L 48 L 51 L Respiratory Rate 13 13 10 L Blood Pressure 121/59 L 144/61 H 165/70 H Pulse Oximetry 98 96 92 L 12/19/17 08:00 12/19/17 08:22 12/19/17 09:00 Temperature 98.8 F Pulse Rate 45 L Respiratory Rate 12 Blood Pressure 105/60 Pulse Oximetry 92 L Intake & Output 12/18/17 12/19/17 12/19/17 18:59 06:59 18:59 Intake Total 1305 / 1305 0 / 0 Output Total 1000 / 1000 Balance 305 / 305 0 / 0 Weight 103.3 kg Intake: IV 1305 / 1305 NS + KCl 20 mEq Inj 1,000 ML @ 1000 / 1000 80 mls/hr IV.CONT .[id number] [facility] Rx#:[id number] Ancef Inj 1,000 MG In NS Inj 200 / 200 100 ML @ 200 mls/hr IV.SIG Q8H [facility] Rx#:[id number] Keppra Inj 500 MG In NS Inj 100 105 / 105 ML @ 400 mls/hr IV.SIG Q12H [facility] Rx#:[id number] Oral 0 / 0 Output: Urine 1000 / 1000 Other: Date of Last Bowel Movement 12/16/17 12/16/17 12/19/17 Physical Exam: CONSTITUTIONAL/GENERAL: frail appearing male, in NAD TUBES/LINES/DRAINS: port left chest SKIN: No jaundice, rashes. Sallow complexion. Ulceration left malleolus with surrounding erythema. No wounds seen anteriorly. Skin temperature appropriate. Not diaphoretic. HEAD:dressing around cranium clean and dry. EYES: Extraocular motions intact. No scleral icterus. No injection or drainage. Fundi not examined. ENT: Hearing grossly normal. Nose without bleeding or purulent drainage. CARDIOVASCULAR: RRR + murmur. No gallops, or rubs. No JVD. Peripheral pulses symmetric. RESPIRATORY/CHEST: Symmetric, unlabored respirations. Clear to auscultation. Breath sounds equal bilaterally. Diminished. GASTROINTESTINAL: Abdomen soft, non-tender, nondistended. No hepato-splenomegaly , or palpable masses. No guarding. Bowel sounds present. MUSCULOSKELETAL: Extremities without clubbing, cyanosis, or edema. No joint tenderness or effusion noted. No calf tenderness. No mottling or clubbing. NEUROLOGICAL: lethargic, answers appropriately Diagnostic Tests Laboratory: Laboratory Results - last 72 hr 12/17/17 12/18/17 12/18/17 20:38 07:06 11:45 WBC 7.3 RBC 4.23 L Hgb 11.1 L Hct 34.7 L MCV 82.0 MCH 26.3 L MCHC 32.1 RDW 16.5 Plt Count 138 L MPV 8.8 Neut % (Auto) 83.8 H Lymph % (Auto) 13.6 [place] % (Auto) 2.5 Eos % (Auto) 0.0 Baso % (Auto) 0.1 Neut # (Auto) 6.1 Lymph # (Auto) 1.0 [place] # (Auto) 0.2 Eos # (Auto) 0.0 Baso # (Auto) 0.0 WBC Differential . Differential Comment Auto diff final Sodium Potassium Chloride Carbon Dioxide Anion Gap BUN Creatinine Estimated GFR POC Glucose 110 Random Glucose Calcium Magnesium Total Bilirubin AST ALT Alkaline Phosphatase Total Protein Albumin Blood Type O Positive Blood Type Recheck Required Antibody Screen Negative 12/18/17 12/19/17 12/19/17 11:45 04:05 04:05 WBC 11.3 H D RBC 3.85 L Hgb 10.2 L Hct 31.3 L MCV 81.2 MCH 26.4 L MCHC 32.5 RDW 16.3 Plt Count 130 L MPV 8.6 Neut % (Auto) 88.3 H Lymph % (Auto) 6.2 L [place] % (Auto) 5.4 Eos % (Auto) 0.0 Baso % (Auto) 0.1 Neut # (Auto) 10.0 H Lymph # (Auto) 0.7 L [place] # (Auto) 0.6 Eos # (Auto) 0.0 Baso # (Auto) 0.0 WBC Differential . Differential Comment Auto diff final Sodium 141 142 Potassium 4.1 4.5 Chloride 106 106 Carbon Dioxide 27.4 30.3 Anion Gap 8 6 BUN 27 H 24 H Creatinine 0.66 0.64 Estimated GFR Greater than 89 Greater than 89 POC Glucose Random Glucose 121 H 100 Calcium 7.8 L 7.9 L Magnesium 2.2 2.1 Total Bilirubin 0.3 AST 14 L ALT 31 Alkaline Phosphatase 49 Total Protein 5.2 L D Albumin 2.3 L Blood Type Blood Type Recheck Antibody Screen Result Diagrams: 12/19/17 04:05 12/19/17 04:05 Imaging: ITS Impressions Cervical Spine CT 12/11/17 13:38 CONCLUSION: 1. Degenerative arthritic changes within the cervical spine as above. No acute fracture or destructive lesion is identified. Chest X-Ray 12/11/17 13:38 CONCLUSION: Mild airspace disease in left upper lobe and right lung base Otherwise stable chest Right Gllcsn-t-Mouz catheter remains in stable position. Abdomen/Pelvis CT 12/12/17 00:00 CONCLUSION: 1. Mild constipation. No acute findings. No evidence for metastatic disease to the abdomen and pelvis. Prior cholecystectomy. Chest CT 12/12/17 00:00 CONCLUSION: 1. When compared with 2014 there is no evidence for tumor recurrence. No new adenopathy or soft tissue mass. Scarring upper left lung possibly related to prior radiation. 2. Coronary artery calcifications. Prior cholecystectomy. [id number] in superior vena cava. Head MRI 12/13/17 00:00 There is no evidence for acute infarction. There is a heterogeneous signal intensity mass identified in the right temporal lobe with a large amount of surrounding vasogenic edema. There is avid enhancement following administration of intravenous contrast. The mass measures approximately 5 x 3.1 cm in AP transverse dimension on axial image 57 of series 18. There is moderate confluent increased FLAIR signal in the periventricular white matter and bilateral centrum semiovale most characteristic of chronic microvascular ischemic disease. There is some blood products seen on susceptibility weighted imaging within the substance of the mass. No other masses are seen. The mass is intra-axial and on sagittal weighted images does extend to the tentorium on coronal image 126 of series 101. There is also extension to the inferior margin of the right temporal horn. CONCLUSION: 1. There is an avidly enhancing mass in the right temporal lobe identified. This is a new finding and would be most suspicious for metastatic disease. 2. White matter disease is felt to be chronic in nature. Head CT 12/19/17 00:00 CONCLUSION: Satisfactory postoperative appearance. . Procedures: 12/18 craniotomy Assessment and Plan - Disease Oriented Problem List (1) Dementia (2) Cranial irradiation (3) Brain tumor (4) COPD (chronic obstructive pulmonary disease) Pertinent Non-Medical Issues: Psychosocial: Originally from [place]. Been in [place] 6 years. Has 1 estranged daughter. Been 39 years. Spiritual: none Legal: Pt not capacitated to make decisions and he is unlikely to regain capacity. He has designated his partner Osman as his HCS. 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 He was found to have a new brain mass that is thought to be metastatic. Mass possibly amenable to resection but with increased risks including risk for vent dependence. Now s/p craniotomy and resection mass. Given his underlying comorbidities and debility, his prognosis is poor and he is likely to continue declining. Code Status: No Code DNR Plan: - LEGAL DECISON MAKER - pt is not capacitated to make decisions and is unlikely to regain that capacity. He has designated his partner Osman as HCS. - CODE STATUS- no code/DNR - GOALS - aggressive - SYMPTOMS - * pain - multifactorial - has neuropathy since cranial radiation, has mild left forehead pain from fall, has malleolar ulcer left leg. risk for pain from brain mass. pain 4/10 on my eval, cannot further qualify. on brennen gabapentin. Has PRN tramadol, norco 10/325 q4h PRN not given yet, IV morphine 2mg q2h PRN not given yet. no further recs at this time * debility - wheelchairbound, has had balance difficulties since cranial radiation 4 y ago. hx frequent falls. PT now following, pt has difficulty ambulating assisted and they recommend he use wheelchair for mobility. now s/p crani. Unlikely to improve. high risk for falls. * anxiety/depression - assisted. denies anxiety on my eval, has zoloft 100mg BID. no further recs at this time. - Palliative care will continue to follow during hospital course as condition evolves, to assist patient/decision-maker with understanding of medical conditions, weighing benefits/burdens of treatment options, for clarification of goals of treatment. Additionally will assist with any symptoms of palliative concern Attestation Attestation: To help prompt me to consider important information that might be impacting today's encounter and assessment, information from prior notes written by myself or my colleagues may have been "brought forward" into today's note. My signature on this note, however, is an attestation that I personally performed the exam, history, and/or decision-making noted today, and, unless otherwise indicated, the interactions with patient, family, and staff as well as the review of records all occurred today. I also attest that the listed assessment and stated plan reflect my best clinical judgment today based on the combination of historical information, prior notes, and today's exam/ interactions. When time spent is documented, it refers only to time spent today by the signer, or if indicated, combined time spent today by collaborating physician/nurse practitioner.
--- NOTE | 2017-12-19 13:37 | P.PNIM ---
Subjective Interval history: Follow-up on patient status post mechanical fall at home, brain mass. Patient seen and examined. Patient s/p right craniotomy for neoplasm resection by Dr. Kimball earlier today. Patient encountered in his room sleeping. He is minimally responsive. Did respond to his name but did not open his eyes. He does not appear to be in any distress. Appears comfortable. VSS except for bradycardia which is not new. Satting 97% on 3LNC. 12-19 VERY LETHARGIC NOT INTERACTIVE AT THE TIME OF MY EXAM DW RN ATE SOME PER RN HEAD IS DRESSED CONTINUE PT AND OT Physical Exam Vital signs: Vital Signs 12/18/17 14:00 12/18/17 15:03 12/18/17 16:00 Temperature 97.6 F Pulse Rate 46 L 46 L Respiratory Rate 14 12 Blood Pressure 133/54 L 133/63 Pulse Oximetry 97 97 97 12/18/17 20:00 12/19/17 00:00 12/19/17 04:00 Temperature 97.8 F 97.3 F L 98.3 F Pulse Rate 48 L 48 L 51 L Respiratory Rate 13 13 10 L Blood Pressure 121/59 L 144/61 H 165/70 H Pulse Oximetry 98 96 92 L 12/19/17 08:00 12/19/17 08:22 12/19/17 09:00 Temperature 98.8 F Pulse Rate 45 L Respiratory Rate 12 Blood Pressure 105/60 Pulse Oximetry 92 L 12/19/17 12:00 Temperature 97.9 F Pulse Rate 48 L Respiratory Rate 11 L Blood Pressure 140/63 Pulse Oximetry 95 Intake & Output 12/18/17 12/19/17 12/19/17 18:59 06:59 18:59 Intake Total 1305 / 1305 105 / 105 Output Total 1000 / 1000 Balance 305 / 305 105 / 105 Weight 103.3 kg Intake: IV 1305 / 1305 105 / 105 NS + KCl 20 mEq Inj 1,000 ML @ 1000 / 1000 80 mls/hr IV.CONT .[id number] [facility] Rx#:[id number] Ancef Inj 1,000 MG In NS Inj 200 / 200 100 ML @ 200 mls/hr IV.SIG Q8H [facility] Rx#:[id number] Keppra Inj 500 MG In NS Inj 100 105 / 105 105 / 105 ML @ 400 mls/hr IV.SIG Q12H [facility] Rx#:[id number] Oral 0 / 0 Output: Urine 1000 / 1000 Other: Date of Last Bowel Movement 12/16/17 12/16/17 12/19/17 Narrative: GENERAL: WDWN elderly male patient. Sedated. Does respond to saying his name but does not open his eyes. Not in any acute distress. SKIN: Warm and dry. No rash. HEAD: s/p right craniotomy, postop dressing in place appears C/D/I. NECK: Trachea midline. CARDIOVASCULAR: Bradycardia. +Systolic murmur. RESPIRATORY: No accessory muscle use. Poor effort. Clear to auscultation. Breath sounds equal bilaterally. GASTROINTESTINAL: Abdomen soft, non-tender, nondistended. MUSCULOSKELETAL: Extremities without clubbing, cyanosis, or edema. No obvious deformities. NEUROLOGICAL: Somnolent. Not following commands. PSYCHIATRIC: Unable to assess at this time. Results - Labs CBC & Chem 7: 12/19/17 04:05 12/19/17 04:05 Laboratory Results - last 24 hr 12/19/17 12/19/17 04:05 04:05 WBC 11.3 H D RBC 3.85 L Hgb 10.2 L Hct 31.3 L MCV 81.2 MCH 26.4 L MCHC 32.5 RDW 16.3 Plt Count 130 L MPV 8.6 Neut % (Auto) 88.3 H Lymph % (Auto) 6.2 L [place] % (Auto) 5.4 Eos % (Auto) 0.0 Baso % (Auto) 0.1 Neut # (Auto) 10.0 H Lymph # (Auto) 0.7 L [place] # (Auto) 0.6 Eos # (Auto) 0.0 Baso # (Auto) 0.0 WBC Differential . Differential Comment Auto diff final Sodium 142 Potassium 4.5 Chloride 106 Carbon Dioxide 30.3 Anion Gap 6 BUN 24 H Creatinine 0.64 Estimated GFR Greater than 89 Random Glucose 100 Calcium 7.9 L Magnesium 2.1 Total Bilirubin 0.3 AST 14 L ALT 31 Alkaline Phosphatase 49 Total Protein 5.2 L D Albumin 2.3 L - Imaging Impressions Head CT 12/19/17 00:00 CONCLUSION: Satisfactory postoperative appearance. . - Procedures - Preoperative Diagnosis (1) Brain tumor Date of procedure: 12/18/17 Procedure: Right craniotomy for neoplasm resection; stereotactic BrainLab navigation guidance; microsurgical technique Anesthesia: NEILA Surgeon: Antonio Kimball MD Publishing Agent: Moira Pinzon Estimated blood loss (mL): 100 Operation and Findings: Following initiation of general endotracheal anesthesia the patient had invasive lines and Chaudhry catheter in place along with sequential compression device. A gram of vancomycin and Keppra as well as 10 mg Decadron was administered intravenously and he was positioned supine with the right shoulder elevated on a roll and head turned to the left side and secured in the [place] 3 pin headrest. The BrainLab navigation system was then registered with external landmarks and good accuracy confirmed. A right curvilinear temporoparietal incision area head shaved and prepped with ChloraPrep and sterilely draped in the usual sterile fashion. Incision was then made after infiltrating the scalp was 0.5% Marcaine with epinephrine solution a skin incision made and Sharla clips were used at the scalp edges for hemostasis and the flap retracted with hooks. Right temporalis muscle and fascia was also incised and detached from the temporal and occipital bone and retracted with hooks. With an automated repairing calibrator posterior temporal bur hole made and then with the craniotome the bone flap was elevated exposing the temporal parieto- occipital area. The dura opened in a cruciate format and bone holes placed in the craniotomy edges with 4-0 Nurolon dural tacking stitches for hemostasis. Significant brain swelling was noted at this point and further dissection was undertaken using microtechnique with microscope medication. A corticectomy about 2 cm was made at the posterior temporal occipital area overlying the tentorium and subcortical dissection identified at the anterior border of the mass which is localized with the navigation system also. Resection of this mass was undertaken using microtechnique microscope magnification along with the BrainLab navigation guidance. The mass did not appear to have a distinct border between the brain and the mass and was very infiltrative in nature. Initial debulking undertaken in the middle where the vas was grayish in coloration and somewhat necrotic and subsequent circumferential dissection extending from the posterior temporal lobe to the occipital lobe all the way deep down to the occipital horn of the lateral ventricle with a gross total resection achieved. Fresh frozen specimen sent was consistent with high-grade neoplasm and rest of the specimens were sent for permanent pathology sections although most of the mass was suctioned out. Bipolar cautery used for hemostasis in the resection bed along with Gelfoam and thrombin which was then lined with Surgicel and no bleeding was encountered at this point. The brain was very relaxed and pulsatile at this point. The resection bed cavity was filled with saline solution and the dura approximately using 4 Nurolon sutures with a central dural tacking stitch. Bone flap approximated using Manny mini plates and bur hole covers. The area was then copiously irrigated. The temporalis fascia was approximated and using 2-0 Vicryl sutures and the galea reapproximated using 3-0 Vicryl interrupted sutures and final scalp closure was with massiel. The El head was then removed and a sterile pressing dressing applied. There were no intraoperative complications and all sponge and needle count was correct at the end of the procedure. Estimated blood loss about 100 cc. Patient was extubated and taken to the recovery room. Documented By: Antonio Kimball MD 12/18/17 1132 Signed By: Assessment and Plan - Plan 77-year-old male with PMH of squamous cell CA, dementia who presents the emergency room after he suffered a mechanical fall. S/p mechanical fall Brain mass suspicious metastatic small cell lung cancer hx of small cell lung ca s/p concurrent chemotherapy and radiation Neurosurgery following, appreciate assistance. s/p right craniotomy for neoplasm resection earlier today by Dr. Kimball. Postop CT ordered for tomorrow am Neuro checks Follow up on pathology results Oncology following, appreciate assistance. Radiation oncology following. Plan for radiation following recovery from brain surgery Continue on IV Decadron Palliative care following for goals of care, appreciate assistance seizure precautions Bradycardia, asymptomatic Atenolol discontinued, HR improved EKG shows sinus bradycardia ECHO EF 55-60% Sundeep neg x 3 TSH 0.663 continuous cardiac monitoring Hypertension, controlled Continue on Norvasc 5 mg daily and lisinopril 5 mg daily Clonidine as needed with parameters Continue to monitor BP trend and adjust treatment accordingly Balance instability and cognitive dysfunction s/p cranial irradiation Fall precautions continue with PT/OT increased agitation at night Low dose Haldol prn soft restraints as needed COPD, not in acute exacerbation continue with bronchodilator therapy Duonebs scheduled q8hrs continue to monitor respiratory status Stage 3 sacral pressure ulcer Wound care nurse following, continue wound care orders - 1. Manually reposition patient every 2 hours for comfort and offloading. 2. Cleanse sacral pressure injury with normal saline only! Wound cleanser deactivates Santyl by 87%. 3. Apply Santyl 2mm thick to wound base cover with saline moistened gauze cut to fit wound base secure with boarder gauze. 4. Change dressing daily or as needed for dislodgement/exudate. 5. Sign and date all dressings. DVT ppx SCD/TEDs CI chemoppx at this time patient with brain mass Code Status: DNR Discussed Condition With: school bus driver Planning: Not ready for discharge. Discharge pending clinical improvement, Oncology and Neurosurgery clearance. Code Status: DNR Discussed Condition With: SUSANNA school bus driver Planning: PENDING IMPROVEMENT
[2017-12-19] MEDS ORDERED: levETIRAcetam 500 MG Tablet PO ONE (17:25)
[2017-12-19] MEDS: Morphine Sulfate Inj 2 MG/ML Vial IV.PUSH PRN (21:58)
[2017-12-20 05:00] LABS: Baso % (Auto) 0.3 % (0.0-2.0); Hemoglobin 10.4 gm/dL (13.0-17.0); Lymph # (Auto) 0.8 th/mm3 (1.0-4.8); Lymph % (Auto) 6.8 % (9.0-44.0); Mean Corpuscular HGB Conc 31.4 % (32.0-36.0); Mean Corpuscular Hemoglobin 25.7 pg (27.0-34.0); Mean Corpuscular Volume 81.7 fL (80.0-100.0); Mono # (Auto) 0.5 th/mm3 (0.0-0.9); Mono % (Auto) 4.5 % (0.0-8.0); Neut % (Auto) 88.4 % (16.0-70.0); Platelet Count 122 th/mm3 (150-450); Red Blood Count 4.03 mil/mm3 (4.50-5.90); Red Cell Distribution Width 16.3 % (11.6-17.2); White Blood Count 11.3 th/mm3 (4.0-11.0)
[2017-12-20 05:47] LABS: Albumin 2.2 g/dL (3.4-5.0); Anion Gap 8 meq/L (5-15); Aspartate Aminotransferase 10 U/L (15-37); Blood Urea Nitrogen 23 mg/dL (7-18); Carbon Dioxide 29.3 meq/L (21.0-32.0); Chloride 103 meq/L (98-107); Glomerular Filtration Rate Greater Than 89 mL/min (>89); Glucose,Random 118 mg/dL (74-106); Magnesium 2.1 mg/dL (1.5-2.5); Potassium 4.4 meq/L (3.5-5.1); Sodium 140 meq/L (136-145)
[2017-12-20 05:57] LABS: Alanine Aminotransferase 20 U/L (12-78); Alkaline Phosphatase 50 U/L (45-117); Free T4 (Free Thyroxine) 0.92 ng/dL (0.76-1.46); Phosphorus 2.9 mg/dL (2.5-4.9); Total Protein 5.2 g/dL (6.4-8.2)
--- NOTE | 2017-12-20 07:39 | P.PNONC ---
Subjective Interval history: Patient is resting comfortably in bed. He is sleepy this morning. He denies any headache. He denies any chest pain or shortness of breath. Objective Vital Signs/Intake & Output: Vital Signs 12/19/17 08:00 12/19/17 08:22 12/19/17 09:00 Temperature 98.8 F Pulse Rate 45 L Respiratory Rate 12 Blood Pressure 105/60 Pulse Oximetry 92 L 12/19/17 12:00 12/19/17 16:00 12/19/17 20:00 Temperature 97.9 F 97.9 F 97.9 F Pulse Rate 48 L 54 L 50 L Respiratory Rate 11 L 13 17 Blood Pressure 140/63 141/60 H 162/73 H Pulse Oximetry 95 94 L 12/19/17 20:47 12/19/17 21:40 12/19/17 22:04 Temperature Pulse Rate Respiratory Rate 16 16 Blood Pressure Pulse Oximetry 95 12/20/17 00:00 12/20/17 04:00 Temperature 97.5 F L 97.5 F L Pulse Rate 48 L 44 L Respiratory Rate 10 L 10 L Blood Pressure 155/68 H 140/67 Pulse Oximetry 98 93 L Intake & Output 12/19/17 12/20/17 12/20/17 18:59 06:59 18:59 Intake Total 1355 / 1355 480 / 480 Output Total 1200 / 1200 500 / 500 Balance 155 / 155 -20 / -20 Weight 92.3 kg Intake: IV 105 / 105 Keppra Inj 500 MG In NS Inj 100 105 / 105 ML @ 400 mls/hr IV.SIG Q12H [facility] Rx#:[id number] Oral 1250 / 1250 480 / 480 Output: Urine 500 / 500 Urine Amount (Catheter) 1200 / 1200 Female External 1200 / 1200 Other: Date of Last Bowel Movement 12/19/17 12/19/17 Result Diagrams: 12/20/17 04:35 12/20/17 04:35 Laboratory Results: Laboratory Results - last 24 hr 12/20/17 12/20/17 04:35 04:35 WBC 11.3 H RBC 4.03 L Hgb 10.4 L Hct 33.0 L MCV 81.7 MCH 25.7 L MCHC 31.4 L RDW 16.3 Plt Count 122 L MPV 9.0 Neut % (Auto) 88.4 H Lymph % (Auto) 6.8 L [place] % (Auto) 4.5 Eos % (Auto) 0.0 Baso % (Auto) 0.3 Neut # (Auto) 10.0 H Lymph # (Auto) 0.8 L [place] # (Auto) 0.5 Eos # (Auto) 0.0 Baso # (Auto) 0.0 WBC Differential . Differential Comment Auto diff final Sodium 140 Potassium 4.4 Chloride 103 Carbon Dioxide 29.3 Anion Gap 8 BUN 23 H Creatinine 0.56 L Estimated GFR Greater than 89 Random Glucose 118 H Calcium 8.0 L Phosphorus 2.9 Magnesium 2.1 Total Bilirubin 0.3 AST 10 L ALT 20 Alkaline Phosphatase 50 Total Protein 5.2 L Albumin 2.2 L TSH 0.470 Free T4 0.92 Medications: Active Medications Generic Name Dose Route Start Last Admin Trade Name Freq PRN Reason Stop Dose Admin Hydrocodone Bitart/Acetaminophen 1 tab 12/18/17 11:25 12/19/17 20:47 [place] 10/325 PO 1 tab Q4H PRN Administration PAIN SCALE 6 TO 10 Amlodipine Besylate 5 mg 12/18/17 09:00 12/19/17 09:02 Norvasc PO Not Given DAILY [facility] Budesonide/Formoterol Fumarate 2 puff 12/11/17 21:00 12/19/17 21:55 Symbicort 160/4.5 Mcg Inh INH 2 puff BID [facility] Administration Clonidine HCl 0.1 mg 12/12/17 09:04 12/15/17 03:56 Catapres PO 0.1 mg Q6H PRN Administration SBP>180, DBP>95 Collagenase 1 applicatio 12/17/17 15:00 12/19/17 08:19 Santyl Oint TOPICAL 1 applicatio DAILY [facility] Administration Dexamethasone Sodium Phosphate 4 mg 12/12/17 00:00 12/20/17 05:37 Decadron Inj IV.PUSH 4 mg Q6HR [facility] Administration Gabapentin 300 mg 12/11/17 21:00 12/19/17 20:47 Neurontin PO 300 mg BID [facility] Administration Haloperidol Lactate 0.5 mg 12/16/17 09:14 12/16/17 18:44 Haldol Inj IV.PUSH 0.5 mg Q6H PRN Administration ANXIETY AND/OR AGITATION Sodium Chloride 500 mls @ 30 mls/hr 12/17/17 20:00 12/18/17 07:16 Ns Inj IV.SIG Not Given .Q10H [facility] Lisinopril 5 mg 12/15/17 11:00 12/19/17 08:22 Prinivil PO 5 mg DAILY [facility] Administration Morphine Sulfate 2 mg 12/18/17 11:25 12/19/17 21:58 Morphine Inj IV.PUSH 2 mg Q2H PRN Administration PAIN SCALE 6 TO 10 Olanzapine 5 mg 12/12/17 09:00 12/19/17 08:22 Zyprexa PO 5 mg DAILY [facility] Administration Polyethylene Glycol 17 gm 12/13/17 13:45 12/19/17 09:08 Miralax PO Not Given DAILY [facility] Pravastatin Sodium 20 mg 12/12/17 09:00 12/19/17 08:22 Pravachol PO 20 mg DAILY [facility] Administration Senna/Docusate Sodium 1 tab 12/11/17 21:00 12/19/17 20:47 Roseann-Colace PO 1 tab BID [facility] Administration Sertraline HCl 100 mg 12/12/17 09:00 12/19/17 08:21 Zoloft PO 100 mg DAILY [facility] Administration Objective Remarks: GENERAL: Well-nourished, well-developed patient. Sleepy. SKIN: Warm and dry. HEAD: Normocephalic. Craniotomy site looks clean and no erythema. [place] in place. EYES: No scleral icterus. No injection or drainage. NECK: Supple, trachea midline. No JVD or lymphadenopathy. LYMPHATIC: No adenopathy. CARDIOVASCULAR: Regular rate and rhythm without murmurs. RESPIRATORY: Breath sounds equal bilaterally. No accessory muscle use. GASTROINTESTINAL: Abdomen soft, non-tender, nondistended. EXTREMITIES: No cyanosis, or edema. MUSCULOSKELETAL: Adequate muscle tone. NEUROLOGICAL: No obvious focal deficit. Patient is sleepy but able to answer question appropriately. 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 The patient was residing at [facility] and unfortunately fell forward out of his wheelchair hitting his head and was brought into the emergency room. CT of the head showed a 3.7 x 5.1 cm mass involving the posterior aspect of the right temporal cortex and the right occipital cortex. This is highly suspicious for metastatic small cell lung cancer. However CT of the chest, abdomen and pelvis did not show any recurrent disease or metastatic disease. We cannot totally rule out primary [employer] neoplasm. 1. Brain mass, highly suspicious for metastatic small cell lung cancer. However cannot totally rule out primary [employer] neoplasm. Patient had a gross total resection of the brain mass December 18. He is slowly recovering from the surgery. Pathology is pending. Further management will depend on the final diagnosis. 2. He likely is going to need consolidation radiation when recovered from the brain surgery. Radiation oncology is following. 3. Continue Decadron for vasogenic edema. 4. Continue supportive care.
[2017-12-20] MEDS: Senna/Docusate Sodium 8.6/50 MG Tablet PO SCH ×2 (09:12→20:09)
[2017-12-20] MEDS: Sertraline 100 MG Tablet PO SCH (09:12)
[2017-12-20] MEDS: amLODIPine 5 MG Tablet PO SCH (09:12)
[2017-12-20] MEDS: Polyethylene Glycol 3350 17 GM Packet PO SCH (09:12)
[2017-12-20] MEDS: Gabapentin 300 MG Capsule PO SCH ×2 (09:12→20:09)
[2017-12-20] MEDS: Budesonide-Formoterol 160/4.5 MCG 6 GM Inhaler INH SCH ×2 (09:15→21:15)
[2017-12-20] MEDS: Lisinopril 5 MG Tablet PO SCH (09:15)
[2017-12-20] MEDS: Collagenase Oint 30 GM Tube TOPICAL SCH (09:15)
--- NOTE | 2017-12-20 09:49 | P.PNNS ---
Subjective Interval history: Pt awake. Confused but pleasant. Denies headaches this morning. No n/v. Follows commands. BP labile <Kiet Desai - Last Filed: 12/20/17 09:43> Physical Exam Vital signs: Vital Signs 12/19/17 12:00 12/19/17 16:00 12/19/17 20:00 Temperature 97.9 F 97.9 F 97.9 F Pulse Rate 48 L 54 L 50 L Respiratory Rate 11 L 13 17 Blood Pressure 140/63 141/60 H 162/73 H Pulse Oximetry 95 94 L 12/19/17 20:47 12/19/17 21:40 12/19/17 22:04 Temperature Pulse Rate Respiratory Rate 16 16 Blood Pressure Pulse Oximetry 95 12/20/17 00:00 12/20/17 04:00 Temperature 97.5 F L 97.5 F L Pulse Rate 48 L 44 L Respiratory Rate 10 L 10 L Blood Pressure 155/68 H 140/67 Pulse Oximetry 98 93 L Intake & Output 12/19/17 12/20/17 12/20/17 18:59 06:59 18:59 Intake Total 1355 / 1355 480 / 480 Output Total 1200 / 1200 500 / 500 Balance 155 / 155 -20 / -20 Weight 92.3 kg Intake: IV 105 / 105 Keppra Inj 500 MG In NS Inj 100 105 / 105 ML @ 400 mls/hr IV.SIG Q12H [facility] Rx#:[id number] Oral 1250 / 1250 480 / 480 Output: Urine 500 / 500 Urine Amount (Catheter) 1200 / 1200 Female External 1200 / 1200 Other: Date of Last Bowel Movement 12/19/17 12/19/17 - Constitutional no acute distress, obese - Routine HEENT Exam Head: Absent: normocephalic (Right craniotomy incision clean and dry without signs of infection.) Eye: Present: PERRL (Pupils 3mm bilaterally reactive bilaterally.). Absent: conjunctival icterus ENT: Present: oropharynx clear - Routine Neck Exam Present: trachea midline - Routine Respiratory Exam Present: CTA bilaterally. Absent: respiratory distress, rhonchi, wheezes - Routine Cardiovascular Exam Present: RRR, S1, S2. Absent: murmur - Routine Abdominal Exam Present: soft, normoactive bowel sounds. Absent: distended - Routine Skin Exam Absent: cyanosis, erythema Comments: Incision clean and dry. Healing well without any signs of infection. - Routine Neurological Exam Present: alert, altered mental status (Some confusion but his baseline.), moving all extremities, normal speech. Absent: oriented X3, motor deficit - Routine Psychiatric Exam Present: normal affect, agitated (some periods of agitation.). Absent: normal thought process, good insight, good judgment - Urinary Catheter Management Female External Cath placed during this visit: no <Kiet Desai - Last Filed: 12/20/17 09:43> Vital signs: Vital Signs 12/19/17 16:00 12/19/17 20:00 12/19/17 20:47 Temperature 97.9 F 97.9 F Pulse Rate 54 L 50 L Respiratory Rate 13 17 16 Blood Pressure 141/60 H 162/73 H Pulse Oximetry 94 L 12/19/17 21:40 12/19/17 22:04 12/20/17 00:00 Temperature 97.5 F L Pulse Rate 48 L Respiratory Rate 16 10 L Blood Pressure 155/68 H Pulse Oximetry 95 98 12/20/17 04:00 12/20/17 08:00 12/20/17 09:00 Temperature 97.5 F L 97.6 F Pulse Rate 44 L 40 L 47 L Respiratory Rate 10 L 12 Blood Pressure 140/67 163/70 H Pulse Oximetry 93 L 95 Intake & Output 12/19/17 12/20/17 12/20/17 18:59 06:59 18:59 Intake Total 1355 / 1355 480 / 480 Output Total 1200 / 1200 500 / 500 Balance 155 / 155 -20 / -20 Weight 92.3 kg Intake: IV 105 / 105 Keppra Inj 500 MG In NS Inj 100 105 / 105 ML @ 400 mls/hr IV.SIG Q12H [facility] Rx#:[id number] Oral 1250 / 1250 480 / 480 Output: Urine 500 / 500 Urine Amount (Catheter) 1200 / 1200 Female External 1200 / 1200 Other: Date of Last Bowel Movement 12/19/17 12/19/17 12/19/17 - Urinary Catheter Management Female External Cath placed during this visit: no <Antonio Kimball - Last Filed: 12/20/17 13:34> Assessment and Plan - Assessment (1) Anxiety Code(s): F41.9 - Anxiety disorder, unspecified Status: Acute (2) Brain tumor Code(s): D49.6 - Neoplasm of unspecified behavior of brain Status: Acute (3) COPD (chronic obstructive pulmonary disease) Code(s): J44.9 - Chronic obstructive pulmonary disease, unspecified Status: Acute (4) Cranial irradiation Status: Acute (5) Debility Code(s): R53.81 - Other malaise Status: Acute (6) Dementia Code(s): F03.90 - Unspecified dementia without behavioral disturbance Status: Acute (7) Pain Code(s): R52 - Pain, unspecified Status: Acute - Plan A: 77yoM with history of small cell ca. 5 years ago treated including whole brain XRT. s/p fall and incidentally discovered to have a large right parieto- occipital mass on CT scan with vasogenic edema. MRI of the brain confirms a 5 x 3.1cm right temporal lobe mass with surrounding vasogenic edema. s/p Right craniotomy for neoplasm resection; stereotactic BrainLab navigation guidance; microsurgical technique on 12/18/17. Plan: Continue with neuro checks. Continue with Decadron 4mg IV q6 Continue to get oob with assistance. Monitoring vitals, pt with labile bp. <Kiet Desai - Last Filed: 12/20/17 09:43> - Attending Attestation The exam, history, and the medical decision-making described in the above note were completed with the assistance of the mid-level provider. I reviewed and agree with the findings presented. I attest that I had a [id number] encounter with the patient on the same day, and personally performed and documented my assessment and findings in the medical record. More awake and interactive today. Verbalizes and follows commands in the upper and lower extremities. Awaiting pathology report. Continue with rehabilitation and will likely need assisted home placement and fusion of radiation treatment to the brain in the next 10-14 days. Discussed with the at bedside. <Antonio Kimball - Last Filed: 12/20/17 13:34>
--- NOTE | 2017-12-20 10:22 | P.DIET ---
Nutritional Evaluation Type of nutrition evaluation: follow-up Nutrition screening: Weight Loss > 10 lbs (Reported weight loss of 25# in the last month) Subjective Subjective Comments: Starting to eat a bit post-surgery. He is sleepy and a little confused. Objective - Diagnosis Intracranial Mass with vasogenic edema - Objective % IBW: 106 (IBW = 178#) Body Weight Used for Calculations: Actual (86.1 kg) Energy Needs - Lower Range (kCal/kg): 28 Energy Needs - Upper Range (kCal/kg): 32 Lower Limit kCal/kg (kCals): 2,411 Upper Limit kCal/kg (kCals): 2,755 Lower Limit Protein Factor (Grams per Kg): 1.0 Upper Limit Protein Factor (Grams per Kg): 1.5 Lower Protein Needs (Protein): 86 Upper Protein Needs (Protein): 129 Dietitian Reviewed in Medical Record: Current diet, Curent medications, Intake & Output, Labs, Medical history Diet Order: Heart Healthy Assessment Assessment: Pt is s/p R craniotomy for neoplasm resection. He remains at high nutrition risk 2' to dx, poor po intake and unintentional weight loss. Will continue to send Ensure Enlive for additional nutrition. Each 8 oz serving provides 350 kcals and 20 gms protein. Labs, wts and clinical course reviewed. CBW = 92.3 kg. Recommendations: 1. Liberalize diet to Regular 2. Ensure Enlive bid 3. RD following Dietitian to Monitor: Lab values, Supplement acceptance, Intake & Output, Diet tolerance, Weight change, PO Intake
--- NOTE | 2017-12-20 15:29 | P.PNIM ---
Subjective Interval history: The patient appeared comfortable. He said he was sleepy. He denied any pain or shortness of breath. Discussed with nursing. Physical Exam Vital signs: Vital Signs 12/19/17 16:00 12/19/17 20:00 12/19/17 20:47 Temperature 97.9 F 97.9 F Pulse Rate 54 L 50 L Respiratory Rate 13 17 16 Blood Pressure 141/60 H 162/73 H Pulse Oximetry 94 L 12/19/17 21:40 12/19/17 22:04 12/20/17 00:00 Temperature 97.5 F L Pulse Rate 48 L Respiratory Rate 16 10 L Blood Pressure 155/68 H Pulse Oximetry 95 98 12/20/17 04:00 12/20/17 08:00 12/20/17 09:00 Temperature 97.5 F L 97.6 F Pulse Rate 44 L 40 L 47 L Respiratory Rate 10 L 12 Blood Pressure 140/67 163/70 H Pulse Oximetry 93 L 95 12/20/17 12:00 Temperature Pulse Rate 48 L Respiratory Rate 14 Blood Pressure 146/74 H Pulse Oximetry 95 Intake & Output 12/19/17 12/20/17 12/20/17 18:59 06:59 18:59 Intake Total 1355 / 1355 480 / 480 Output Total 1200 / 1200 500 / 500 Balance 155 / 155 -20 / -20 Weight 92.3 kg Intake: IV 105 / 105 Keppra Inj 500 MG In NS Inj 100 105 / 105 ML @ 400 mls/hr IV.SIG Q12H [facility] Rx#:[id number] Oral 1250 / 1250 480 / 480 Output: Urine 500 / 500 Urine Amount (Catheter) 1200 / 1200 Female External 1200 / 1200 Other: Date of Last Bowel Movement 12/19/17 12/19/17 12/19/17 Narrative: GENERAL: Comfortable, drowsy. SKIN: Warm and dry. No rash. HEAD: s/p right craniotomy, postop dressing in place appears C/D/I. NECK: Trachea midline. CARDIOVASCULAR: Bradycardic. +Systolic murmur. RESPIRATORY: No accessory muscle use. Poor effort. Clear to auscultation. Breath sounds equal bilaterally. GASTROINTESTINAL: Abdomen soft, non-tender, nondistended. MUSCULOSKELETAL: Extremities without clubbing, cyanosis, or edema. No obvious deformities. NEUROLOGICAL: Somnolent. Responds to questions. - Urinary Catheter Management Female External Cath placed during this visit: no Results - Labs CBC & Chem 7: 12/20/17 04:35 12/20/17 04:35 Laboratory Results - last 24 hr 12/20/17 12/20/17 04:35 04:35 WBC 11.3 H RBC 4.03 L Hgb 10.4 L Hct 33.0 L MCV 81.7 MCH 25.7 L MCHC 31.4 L RDW 16.3 Plt Count 122 L MPV 9.0 Neut % (Auto) 88.4 H Lymph % (Auto) 6.8 L [place] % (Auto) 4.5 Eos % (Auto) 0.0 Baso % (Auto) 0.3 Neut # (Auto) 10.0 H Lymph # (Auto) 0.8 L [place] # (Auto) 0.5 Eos # (Auto) 0.0 Baso # (Auto) 0.0 WBC Differential . Differential Comment Auto diff final Sodium 140 Potassium 4.4 Chloride 103 Carbon Dioxide 29.3 Anion Gap 8 BUN 23 H Creatinine 0.56 L Estimated GFR Greater than 89 Random Glucose 118 H Calcium 8.0 L Phosphorus 2.9 Magnesium 2.1 Total Bilirubin 0.3 AST 10 L ALT 20 Alkaline Phosphatase 50 Total Protein 5.2 L Albumin 2.2 L TSH 0.470 Free T4 0.92 - Procedures - Preoperative Diagnosis (1) Brain tumor Date of procedure: 12/18/17 Procedure: Right craniotomy for neoplasm resection; stereotactic [facility] navigation guidance; microsurgical technique Anesthesia: YOKASTA Surgeon: Antonio Kimball MD Jboss Architect: Moira Pinzon Estimated blood loss (mL): 100 Operation and Findings: Following initiation of general endotracheal anesthesia the patient had invasive lines and Chaudhry catheter in place along with sequential compression device. A gram of vancomycin and Keppra as well as 10 mg Decadron was administered intravenously and he was positioned supine with the right shoulder elevated on a roll and head turned to the left side and secured in the El 3 pin headrest. The [facility] navigation system was then registered with external landmarks and good accuracy confirmed. A right curvilinear temporoparietal incision area head shaved and prepped with ChloraPrep and sterilely draped in the usual sterile fashion. Incision was then made after infiltrating the scalp was 0.5% Marcaine with epinephrine solution a skin incision made and Sharla clips were used at the scalp edges for hemostasis and the flap retracted with hooks. Right temporalis muscle and fascia was also incised and detached from the temporal and occipital bone and retracted with hooks. With an automated professional driver posterior temporal bur hole made and then with the craniotome the bone flap was elevated exposing the temporal parieto- occipital area. The dura opened in a cruciate format and bone holes placed in the craniotomy edges with 4-0 Nurolon dural tacking stitches for hemostasis. Significant brain swelling was noted at this point and further dissection was undertaken using microtechnique with microscope medication. A corticectomy about 2 cm was made at the posterior temporal occipital area overlying the tentorium and subcortical dissection identified at the anterior border of the mass which is localized with the navigation system also. Resection of this mass was undertaken using microtechnique microscope magnification along with the [facility] navigation guidance. The mass did not appear to have a distinct border between the brain and the mass and was very infiltrative in nature. Initial debulking undertaken in the middle where the vas was grayish in coloration and somewhat necrotic and subsequent circumferential dissection extending from the posterior temporal lobe to the occipital lobe all the way deep down to the occipital horn of the lateral ventricle with a gross total resection achieved. Fresh frozen specimen sent was consistent with high-grade neoplasm and rest of the specimens were sent for permanent pathology sections although most of the mass was suctioned out. Bipolar cautery used for hemostasis in the resection bed along with Gelfoam and thrombin which was then lined with Surgicel and no bleeding was encountered at this point. The brain was very relaxed and pulsatile at this point. The resection bed cavity was filled with saline solution and the dura approximately using 4 Nurolon sutures with a central dural tacking stitch. Bone flap approximated using Manny mini plates and bur hole covers. The area was then copiously irrigated. The temporalis fascia was approximated and using 2-0 Vicryl sutures and the galea reapproximated using 3-0 Vicryl interrupted sutures and final scalp closure was with massiel. The El head was then removed and a sterile pressing dressing applied. There were no intraoperative complications and all sponge and needle count was correct at the end of the procedure. Estimated blood loss about 100 cc. Patient was extubated and taken to the recovery room. Documented By: Antonio Kibmall MD 12/18/17 1132 Signed By: Assessment and Plan - Plan 77-year-old male with PMH of squamous cell CA, dementia who presents the emergency room after he suffered a mechanical fall. S/p mechanical fall Brain mass suspicious metastatic small cell lung cancer hx of small cell lung ca s/p concurrent chemotherapy and radiation Neurosurgery following, appreciate assistance. s/p right craniotomy for neoplasm resection by Dr. Kimball. Neuro checks Follow up on pathology results Oncology following, appreciate assistance. Radiation oncology following. Plan for radiation following recovery from brain surgery Continue on IV Decadron Palliative care following for goals of care, appreciate assistance seizure precautions Bradycardia, asymptomatic Atenolol discontinued. Stable. EKG shows sinus bradycardia. Will repeat. ECHO EF 55-60% Sundeep neg x 3 TSH 0.663 continuous cardiac monitoring Hypertension, controlled Continue on Norvasc 5 mg daily and lisinopril 5 mg daily Clonidine as needed with parameters Continue to monitor BP trend and adjust treatment accordingly Balance instability and cognitive dysfunction s/p cranial irradiation Fall precautions continue with PT/OT increased agitation at night Low dose Haldol prn soft restraints as needed COPD, not in acute exacerbation continue with bronchodilator therapy Duonebs scheduled q8hrs continue to monitor respiratory status Stage 3 sacral pressure ulcer Wound care nurse following, continue wound care orders - 1. Manually reposition patient every 2 hours for comfort and offloading. 2. Cleanse sacral pressure injury with normal saline only! Wound cleanser deactivates Santyl by 87%. 3. Apply Santyl 2mm thick to wound base cover with saline moistened gauze cut to fit wound base secure with boarder gauze. 4. Change dressing daily or as needed for dislodgement/exudate. 5. Sign and date all dressings. DVT ppx SCD/TEDs
[2017-12-20 15:30] LABS: Hemoglobin A1c 5.9 % (4.3-6.0)
[2017-12-21] MEDS: Morphine Sulfate Inj 2 MG/ML Vial IV.PUSH PRN (02:07)
[2017-12-21 04:38] VITALS: TEMP 97.6; O2SAT 95
[2017-12-21 06:15] LABS: Hematocrit 33.1 % (39.0-51.0); Hemoglobin 10.8 gm/dL (13.0-17.0); Mean Corpuscular HGB Conc 32.7 % (32.0-36.0); Mean Corpuscular Hemoglobin 26.2 pg (27.0-34.0); Mean Corpuscular Volume 80.2 fL (80.0-100.0); Mean Platelet Volume 9.1 fL (7.0-11.0); Platelet Count 133 th/mm3 (150-450); Red Blood Count 4.12 mil/mm3 (4.50-5.90); Red Cell Distribution Width 16.7 % (11.6-17.2); White Blood Count 11.8 th/mm3 (4.0-11.0)
[2017-12-21 06:32] LABS: Anion Gap 6 meq/L (5-15); Blood Urea Nitrogen 28 mg/dL (7-18); Calcium 8.1 mg/dL (8.5-10.1); Carbon Dioxide 32.5 meq/L (21.0-32.0); Chloride 101 meq/L (98-107); Glomerular Filtration Rate Greater Than 89 mL/min (>89); Glucose,Random 116 mg/dL (74-106); Magnesium 2.3 mg/dL (1.5-2.5); Phosphorus 2.3 mg/dL (2.5-4.9); Potassium 4.3 meq/L (3.5-5.1); Sodium 139 meq/L (136-145)
--- NOTE | 2017-12-21 08:00 | P.PNONC ---
Subjective Interval history: Patient is more awake today. He has mild headache around the surgical site. He denies any focal weakness or numbness. He denies any chest pain or shortness of breath. Objective Vital Signs/Intake & Output: Vital Signs 12/20/17 08:00 12/20/17 09:00 12/20/17 12:00 Temperature 97.6 F Pulse Rate 40 L 47 L 48 L Respiratory Rate 12 14 Blood Pressure 163/70 H 146/74 H Pulse Oximetry 95 95 12/20/17 16:00 12/20/17 20:00 12/20/17 20:35 Temperature 97.1 F L Pulse Rate 54 L 60 Respiratory Rate 14 16 Blood Pressure 141/62 H 137/65 Pulse Oximetry 93 L 93 L 93 L 12/21/17 00:00 12/21/17 03:05 12/21/17 04:00 Temperature 97.7 F 97.6 F Pulse Rate 58 L 44 L Respiratory Rate 12 16 9 L Blood Pressure 159/72 H 145/74 H Pulse Oximetry 94 L 95 Intake & Output 12/20/17 12/21/17 12/21/17 18:59 06:59 18:59 Intake Total 1580 / 1580 500 / 500 Output Total 1000 / 1000 900 / 900 Balance 580 / 580 -400 / -400 Weight 87.9 kg Intake: IV 1000 / 1000 Oral 580 / 580 500 / 500 Output: Urine 1000 / 1000 Urine Amount (Catheter) 900 / 900 Female External 900 / 900 Other: Date of Last Bowel Movement 12/19/17 12/19/17 Result Diagrams: 12/21/17 05:50 12/21/17 05:50 Laboratory Results: Laboratory Results - last 24 hr 12/20/17 12/21/17 12/21/17 04:35 05:50 05:50 WBC 11.8 H RBC 4.12 L Hgb 10.8 L Hct 33.1 L MCV 80.2 MCH 26.2 L MCHC 32.7 RDW 16.7 Plt Count 133 L MPV 9.1 Sodium 139 Potassium 4.3 Chloride 101 Carbon Dioxide 32.5 H Anion Gap 6 BUN 28 H Creatinine 0.57 L Estimated GFR Greater than 89 Random Glucose 116 H Hemoglobin A1c 5.9 Calcium 8.1 L Phosphorus 2.3 L Magnesium 2.3 Medications: Active Medications Generic Name Dose Route Start Last Admin Trade Name Freq PRN Reason Stop Dose Admin Hydrocodone Bitart/Acetaminophen 1 tab 12/18/17 11:25 12/21/17 03:05 Seymour 10/325 PO 1 tab Q4H PRN Administration PAIN SCALE 6 TO 10 Amlodipine Besylate 5 mg 12/18/17 09:00 12/20/17 09:12 Norvasc PO 5 mg DAILY A[facility]US Administration Budesonide/Formoterol Fumarate 2 puff 12/11/17 21:00 12/20/17 21:15 Symbicort 160/4.5 Mcg Inh INH Not Given BID AUG[facility]US Clonidine HCl 0.1 mg 12/12/17 09:04 12/15/17 03:56 Catapres PO 0.1 mg Q6H PRN Administration SBP>180, DBP>95 Collagenase 1 applicatio 12/17/17 15:00 12/20/17 09:15 Santyl Oint TOPICAL 1 applicatio DAILY AUGUSTUS Administration Dexamethasone Sodium Phosphate 4 mg 12/12/17 00:00 12/21/17 06:58 Decadron Inj IV.PUSH 4 mg Q6HR [facility] Administration Gabapentin 300 mg 12/11/17 21:00 12/20/17 20:09 Neurontin PO 300 mg BID A[facility] Administration Haloperidol Lactate 0.5 mg 12/16/17 09:14 12/16/17 18:44 Haldol Inj IV.PUSH 0.5 mg Q6H PRN Administration ANXIETY AND/OR AGITATION Sodium Chloride 500 mls @ 30 mls/hr 12/17/17 20:00 12/18/17 07:16 Ns Inj IV.SIG Not Given .Q10H [facility] Lisinopril 5 mg 12/15/17 11:00 12/20/17 09:15 Prinivil PO Not Given DAILY [facility]US Morphine Sulfate 2 mg 12/18/17 11:25 12/21/17 02:07 Morphine Inj IV.PUSH 2 mg Q2H PRN Administration PAIN SCALE 6 TO 10 Olanzapine 5 mg 12/12/17 09:00 12/20/17 09:12 Zyprexa PO 5 mg DAILY [facility] Administration Polyethylene Glycol 17 gm 12/13/17 13:45 12/20/17 09:12 Miralax PO 17 gm DAILY [facility]US Administration Pravastatin Sodium 20 mg 12/12/17 09:00 12/20/17 09:12 Pravachol PO 20 mg DAILY [facility]US Administration Senna/Docusate Sodium 1 tab 12/11/17 21:00 12/20/17 20:09 Roseann-Colace PO 1 tab BID [facility] Administration Sertraline HCl 100 mg 12/12/17 09:00 12/20/17 09:12 Zoloft PO 100 mg DAILY [facility] Administration Objective Remarks: GENERAL: Well-nourished, well-developed patient. SKIN: Warm and dry. HEAD: Normocephalic. Craniotomy site has no skin breakdown staple in place. EYES: No scleral icterus. No injection or drainage. NECK: Supple, trachea midline. No JVD or lymphadenopathy. LYMPHATIC: No adenopathy. CARDIOVASCULAR: Regular rate and rhythm without murmurs. RESPIRATORY: Breath sounds equal bilaterally. No accessory muscle use. GASTROINTESTINAL: Abdomen soft, non-tender, nondistended. EXTREMITIES: No cyanosis, or edema. MUSCULOSKELETAL: Adequate muscle tone. NEUROLOGICAL: No obvious focal deficit. Awake, alert, and oriented x3. PSYCHIATRIC: Appropriate mood and affect; insight and judgment normal. 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 The patient was residing at [facility] and unfortunately fell forward out of his wheelchair hitting his head and was brought into the emergency room. CT of the head showed a 3.7 x 5.1 cm mass involving the posterior aspect of the right temporal cortex and the right occipital cortex. This is highly suspicious for metastatic small cell lung cancer. However CT of the chest, abdomen and pelvis did not show any recurrent disease or metastatic disease. We cannot totally rule out primary BUSINESS ANALYST neoplasm. 1. Brain mass, highly suspicious for metastatic small cell lung cancer. However cannot totally rule out primary BUSINESS ANALYST neoplasm. Patient had a gross total resection of the brain mass December 18. He is slowly recovering from the surgery. Pathology is pending. Discussed with pathology and preliminary evaluation showed possible other neoplasm rather than small cell carcinoma. Further management will depend on the final diagnosis. 2. He likely is going to need consolidation radiation when recovered from the brain surgery. Radiation oncology is following. 3. Continue Decadron for vasogenic edema per neurosurgery. 4. Continue supportive care.
--- NOTE | 2017-12-21 09:12 | P.PNNS ---
Subjective Interval history: Pt awakens to voice easily. Denies headaches. No n/v. Follows commands well. <Kiet Desai - Last Filed: 12/21/17 09:57> Physical Exam Vital signs: Vital Signs 12/20/17 12:00 12/20/17 16:00 12/20/17 20:00 Temperature 97.1 F L Pulse Rate 48 L 54 L 60 Respiratory Rate 14 14 16 Blood Pressure 146/74 H 141/62 H 137/65 Pulse Oximetry 95 93 L 93 L 12/20/17 20:35 12/21/17 00:00 12/21/17 03:05 Temperature 97.7 F Pulse Rate 58 L Respiratory Rate 12 16 Blood Pressure 159/72 H Pulse Oximetry 93 L 94 L 12/21/17 04:00 Temperature 97.6 F Pulse Rate 44 L Respiratory Rate 9 L Blood Pressure 145/74 H Pulse Oximetry 95 Intake & Output 12/20/17 12/21/17 12/21/17 18:59 06:59 18:59 Intake Total 1580 / 1580 500 / 500 Output Total 1000 / 1000 900 / 900 Balance 580 / 580 -400 / -400 Weight 87.9 kg Intake: IV 1000 / 1000 Oral 580 / 580 500 / 500 Output: Urine 1000 / 1000 Urine Amount (Catheter) 900 / 900 Female External 900 / 900 Other: Date of Last Bowel Movement 12/19/17 12/19/17 - Constitutional no acute distress, obese, cooperative - Routine HEENT Exam Head: Present: normocephalic, atraumatic Eye: Present: PERRL (Pupils 3mm bilaterally reactive bilaterally.). Absent: conjunctival icterus - Routine Neck Exam Present: trachea midline - Routine Respiratory Exam Present: CTA bilaterally. Absent: respiratory distress, rhonchi, wheezes - Routine Cardiovascular Exam Present: S1, S2, bradycardia. Absent: murmur - Routine Abdominal Exam Present: soft, normoactive bowel sounds - Routine Skin Exam Absent: cyanosis, erythema Comments: Incision clean and dry without signs of infection. - Routine Neurological Exam Present: alert, oriented X3, normal speech. Absent: sensory deficit, motor deficit, altered mental status, moving all extremities - Routine Psychiatric Exam Present: normal affect, cooperative. Absent: anxious, agitated - Urinary Catheter Management Female External Cath placed during this visit: no <Kiet Desai - Last Filed: 12/21/17 09:57> Vital signs: Vital Signs 12/20/17 16:00 12/20/17 20:00 12/20/17 20:35 Temperature 97.1 F L Pulse Rate 54 L 60 Respiratory Rate 14 16 Blood Pressure 141/62 H 137/65 Pulse Oximetry 93 L 93 L 93 L 12/21/17 00:00 12/21/17 03:05 12/21/17 04:00 Temperature 97.7 F 97.6 F Pulse Rate 58 L 44 L Respiratory Rate 12 16 9 L Blood Pressure 159/72 H 145/74 H Pulse Oximetry 94 L 95 12/21/17 08:00 12/21/17 09:00 12/21/17 12:00 Temperature 97.6 F 97.6 F Pulse Rate 54 L 47 L 49 L Respiratory Rate 14 16 Blood Pressure 168/75 H 148/65 H Pulse Oximetry 95 95 Intake & Output 12/20/17 12/21/17 12/21/17 18:59 06:59 18:59 Intake Total 1580 / 1580 500 / 500 Output Total 1000 / 1000 900 / 900 Balance 580 / 580 -400 / -400 Weight 87.9 kg Intake: IV 1000 / 1000 Oral 580 / 580 500 / 500 Output: Urine 1000 / 1000 Urine Amount (Catheter) 900 / 900 Female External 900 / 900 Other: Date of Last Bowel Movement 12/19/17 12/19/17 12/19/17 - Urinary Catheter Management Female External Cath placed during this visit: no <Antonio Kimball - Last Filed: 12/21/17 13:39> Assessment and Plan - Assessment (1) Anxiety Code(s): F41.9 - Anxiety disorder, unspecified Status: Acute (2) Brain tumor Code(s): D49.6 - Neoplasm of unspecified behavior of brain Status: Acute (3) COPD (chronic obstructive pulmonary disease) Code(s): J44.9 - Chronic obstructive pulmonary disease, unspecified Status: Acute (4) Cranial irradiation Status: Acute (5) Debility Code(s): R53.81 - Other malaise Status: Acute (6) Dementia Code(s): F03.90 - Unspecified dementia without behavioral disturbance Status: Acute (7) Pain Code(s): R52 - Pain, unspecified Status: Acute - Plan A: 77yoM with history of small cell ca. 5 years ago treated including whole brain XRT. s/p fall and incidentally discovered to have a large right parieto- occipital mass on CT scan with vasogenic edema. MRI of the brain confirms a 5 x 3.1cm right temporal lobe mass with surrounding vasogenic edema. s/p Right craniotomy for neoplasm resection; stereotactic [facility] navigation guidance; microsurgical technique on 12/18/17. Plan: Neurosurgically stable to transfer to SNF. Wean Decadron to 4mg bid. Continue to get oob with assistance. Pt has not required any prn blood pressure medication per RN. Dr. Kimball recommends weaning Decadron to 4mg po bid and continuing on this dose until he is done with radiation. We have weaned him to 4mg po tid and will continue with this for 3 days and then go to 4mg bid where he will remain until radiation oncology treats pt and they will wean according to their protocol. We will also add Keppra 500mg for 2 weeks. <Kiet Desai - Last Filed: 12/21/17 09:57> - Attending Attestation The exam, history, and the medical decision-making described in the above note were completed with the assistance of the mid-level provider. I reviewed and agree with the findings presented. I attest that I had a [id number] encounter with the patient on the same day, and personally performed and documented my assessment and findings in the medical record. <Antonio Kimball - Last Filed: 12/21/17 13:39>
[2017-12-21] MEDS: Gabapentin 300 MG Capsule PO SCH (09:50)
[2017-12-21] MEDS: Sertraline 100 MG Tablet PO SCH (09:50)
[2017-12-21] MEDS: Senna/Docusate Sodium 8.6/50 MG Tablet PO SCH (09:50)
[2017-12-21] MEDS: Lisinopril 5 MG Tablet PO SCH (09:50)
[2017-12-21] MEDS: Polyethylene Glycol 3350 17 GM Packet PO SCH (09:50)
[2017-12-21] MEDS: Collagenase Oint 30 GM Tube TOPICAL SCH (09:51)
[2017-12-21] MEDS: amLODIPine 5 MG Tablet PO SCH (09:51)
[2017-12-21] MEDS: Budesonide-Formoterol 160/4.5 MCG 6 GM Inhaler INH SCH (09:51)
[2017-12-21 12:05] VITALS: BP 148/65; PULSE 49; RESP 16
--- NOTE | 2017-12-21 14:26 | P.PNIM ---
Subjective Interval history: The patient was awake and alert. He was eating lunch. He denied any pain or dizziness. His family was at the bedside. No acute concerns. Discussed with nursing. Physical Exam Vital signs: Vital Signs 12/20/17 16:00 12/20/17 20:00 12/20/17 20:35 Temperature 97.1 F L Pulse Rate 54 L 60 Respiratory Rate 14 16 Blood Pressure 141/62 H 137/65 Pulse Oximetry 93 L 93 L 93 L 12/21/17 00:00 12/21/17 03:05 12/21/17 04:00 Temperature 97.7 F 97.6 F Pulse Rate 58 L 44 L Respiratory Rate 12 16 9 L Blood Pressure 159/72 H 145/74 H Pulse Oximetry 94 L 95 12/21/17 08:00 12/21/17 09:00 12/21/17 12:00 Temperature 97.6 F 97.6 F Pulse Rate 54 L 47 L 49 L Respiratory Rate 14 16 Blood Pressure 168/75 H 148/65 H Pulse Oximetry 95 95 Intake & Output 12/20/17 12/21/17 12/21/17 18:59 06:59 18:59 Intake Total 1580 / 1580 500 / 500 Output Total 1000 / 1000 900 / 900 Balance 580 / 580 -400 / -400 Weight 87.9 kg Intake: IV 1000 / 1000 Oral 580 / 580 500 / 500 Output: Urine 1000 / 1000 Urine Amount (Catheter) 900 / 900 Female External 900 / 900 Other: Date of Last Bowel Movement 12/19/17 12/19/17 12/19/17 Narrative: GENERAL: Comfortable, drowsy. SKIN: Warm and dry. No rash. HEAD: s/p right craniotomy, postop dressing in place appears C/D/I. NECK: Trachea midline. CARDIOVASCULAR: Bradycardic. +Systolic murmur. RESPIRATORY: No accessory muscle use. Poor effort. Clear to auscultation. Breath sounds equal bilaterally. GASTROINTESTINAL: Abdomen soft, non-tender, nondistended. MUSCULOSKELETAL: Extremities without clubbing, cyanosis, or edema. No obvious deformities. NEUROLOGICAL: Awake and alert. Responds to questions. - Urinary Catheter Management Female External Cath placed during this visit: no Results - Labs CBC & Chem 7: 12/21/17 05:50 12/21/17 05:50 Laboratory Results - last 24 hr 12/20/17 12/21/17 12/21/17 04:35 05:50 05:50 WBC 11.8 H RBC 4.12 L Hgb 10.8 L Hct 33.1 L MCV 80.2 MCH 26.2 L MCHC 32.7 RDW 16.7 Plt Count 133 L MPV 9.1 Sodium 139 Potassium 4.3 Chloride 101 Carbon Dioxide 32.5 H Anion Gap 6 BUN 28 H Creatinine 0.57 L Estimated GFR Greater than 89 Random Glucose 116 H Hemoglobin A1c 5.9 Calcium 8.1 L Phosphorus 2.3 L Magnesium 2.3 - Procedures - Preoperative Diagnosis (1) Brain tumor Date of procedure: 12/18/17 Procedure: Right craniotomy for neoplasm resection; stereotactic BrainLab navigation guidance; microsurgical technique Anesthesia: NEILA Surgeon: Antonio Kimball MD Ball Truing Machine Operator: Moira Pinzon Estimated blood loss (mL): 100 Operation and Findings: Following initiation of general endotracheal anesthesia the patient had invasive lines and Chaudhry catheter in place along with sequential compression device. A gram of vancomycin and Keppra as well as 10 mg Decadron was administered intravenously and he was positioned supine with the right shoulder elevated on a roll and head turned to the left side and secured in the [place] 3 pin headrest. The BrainLab navigation system was then registered with external landmarks and good accuracy confirmed. A right curvilinear temporoparietal incision area head shaved and prepped with ChloraPrep and sterilely draped in the usual sterile fashion. Incision was then made after infiltrating the scalp was 0.5% Marcaine with epinephrine solution a skin incision made and Sharla clips were used at the scalp edges for hemostasis and the flap retracted with hooks. Right temporalis muscle and fascia was also incised and detached from the temporal and occipital bone and retracted with hooks. With an automated warp tester posterior temporal bur hole made and then with the craniotome the bone flap was elevated exposing the temporal parieto- occipital area. The dura opened in a cruciate format and bone holes placed in the craniotomy edges with 4-0 Nurolon dural tacking stitches for hemostasis. Significant brain swelling was noted at this point and further dissection was undertaken using microtechnique with microscope medication. A corticectomy about 2 cm was made at the posterior temporal occipital area overlying the tentorium and subcortical dissection identified at the anterior border of the mass which is localized with the navigation system also. Resection of this mass was undertaken using microtechnique microscope magnification along with the BrainLab navigation guidance. The mass did not appear to have a distinct border between the brain and the mass and was very infiltrative in nature. Initial debulking undertaken in the middle where the vas was grayish in coloration and somewhat necrotic and subsequent circumferential dissection extending from the posterior temporal lobe to the occipital lobe all the way deep down to the occipital horn of the lateral ventricle with a gross total resection achieved. Fresh frozen specimen sent was consistent with high-grade neoplasm and rest of the specimens were sent for permanent pathology sections although most of the mass was suctioned out. Bipolar cautery used for hemostasis in the resection bed along with Gelfoam and thrombin which was then lined with Surgicel and no bleeding was encountered at this point. The brain was very relaxed and pulsatile at this point. The resection bed cavity was filled with saline solution and the dura approximately using 4 Nurolon sutures with a central dural tacking stitch. Bone flap approximated using Manny mini plates and bur hole covers. The area was then copiously irrigated. The temporalis fascia was approximated and using 2-0 Vicryl sutures and the galea reapproximated using 3-0 Vicryl interrupted sutures and final scalp closure was with massiel. The El head was then removed and a sterile pressing dressing applied. There were no intraoperative complications and all sponge and needle count was correct at the end of the procedure. Estimated blood loss about 100 cc. Patient was extubated and taken to the recovery room. Documented By: Antonio Kimball MD 12/18/17 1132 Signed By: Assessment and Plan - Plan 77-year-old male with PMH of squamous cell CA, dementia who presents the emergency room after he suffered a mechanical fall. S/p mechanical fall Brain mass suspicious metastatic small cell lung cancer hx of small cell lung ca s/p concurrent chemotherapy and radiation Neurosurgery following, appreciate assistance. s/p right craniotomy for neoplasm resection by Dr. Kimball. Neuro checks Follow up on pathology results Oncology following, appreciate assistance. Will need outpt follow-up. Radiation oncology following. Plan for radiation following recovery from brain surgery Continue on IV Decadron. Taper Decadron upon discharge per neurosurgery. Palliative care following for goals of care, appreciate assistance seizure precautions Bradycardia, asymptomatic Atenolol discontinued. Stable. EKG shows sinus bradycardia. Will repeat. ECHO EF 55-60% Sundeep neg x 3 TSH 0.663 continuous cardiac monitoring Hypertension, controlled Continue on Norvasc 5 mg daily and lisinopril 5 mg daily Clonidine as needed with parameters Continue to monitor BP trend and adjust treatment accordingly Balance instability and cognitive dysfunction s/p cranial irradiation Fall precautions continue with PT/OT. Will be d/c to SNF. increased agitation at night Low dose Haldol prn COPD, not in acute exacerbation continue with bronchodilator therapy Duonebs scheduled q8hrs continue to monitor respiratory status Stage 3 sacral pressure ulcer Wound care nurse following, continue wound care orders - 1. Manually reposition patient every 2 hours for comfort and offloading. 2. Cleanse sacral pressure injury with normal saline only! Wound cleanser deactivates Santyl by 87%. 3. Apply Santyl 2mm thick to wound base cover with saline moistened gauze cut to fit wound base secure with boarder gauze. 4. Change dressing daily or as needed for dislodgement/exudate. 5. Sign and date all dressings. DVT ppx SCD/TEDs Discharge Planning: D/c to SNF in AM
--- NOTE | 2017-12-21 16:15 | P.DS ---
Date of admission: 12/11/17 16:35 Primary care physician: UNKNOWN Anticipated date of discharge: 12/21/17 Brief History from admission: Patient is a 77-year-old male with PMH of squamous cell CA, dementia, who presents the emergency room after he suffered a mechanical fall. Patient reports that at baseline, he gets around by using his wheelchair. Patient reports that he fell asleep in his wheelchair today, reports that he fell forwards and fell out of his wheelchair while he was sleeping. He did wake up during his fall and saw that he hit his head on the hard floor. Patient reports that he has a "bump" to his forehead. Denies loc, denies vision changes. Says he has headache on /off. He has no headache at this time. Denies chest pain/sob. Denies abdominal pain. He is not on any anticoagulants. Patient with no other complaints. Patient doesn't have a current oncology Dr but thinks he has seen inthe past Dr Dugan oncology in [place]. Patient and family wants further eval by neourosurgery and oncology. Likely will not aggressive measures. Consult neurosurgery seen by Dr Gentile , recommends contrast MRI of the brain ordered in the ER. Also start Decadron. Oncology was consulted as well as palliative care for goals of care. Surgical History: Infuse A Port Family history: Mother with DM DS: Diagnosis - Discharge Diagnosis (1) Brain tumor Status: Acute (2) Debility Status: Acute DS: Medications - Discharge Medications Prescriptions: dexamethasone 4 mg PO TID #30 tab hydrocodone-acetaminophen 1 tab PO Q4H PRN #12 tab PRN Reason: Pain Scale 6 To 10 levetiracetam [Keppra] 500 mg PO BID #14 tab DS: Summary Hospital Course: Brain mass 77-year-old male who presents to the emergency room after he suffered a mechanical fall. Imaging revealed a brain mass suspicious for metastatic small cell lung cancer. He has a history of small cell lung ca s/p concurrent chemotherapy and radiation. Neurosurgery was consulted. S/p right craniotomy for neoplasm resection by Dr. Kimball. He was placed on neuro checks and seizure precautions. Oncology and radiation oncology were also consulted. Plan for radiation following recovery from brain surgery. He was continued on IV Decadron which will be tapered per neurosurgery. Palliative care followed the patient while in the hospital. The pt will follow up with neurosurgery, oncology and radiation oncology as an outpt. He received pain medications upon discharge and E-FORCSE was checked. Bradycardia Asymptomatic. Atenolol was discontinued. EKG shows sinus bradycardia. ECHO with EF 55-60%. Troponins negative x 3. TSH 0.663. He will follow up with his PCP as an outpt. Hypertension We continued Norvasc 5 mg daily and lisinopril 5 mg daily. He received clonidine as needed with parameters. Balance instability and cognitive dysfunction He was placed on fall precautions. He continued to work with PT/OT. Case management was consulted and helped arrange discharge to SNF. Stage 3 sacral pressure ulcer Wound care nurse was consulted. We continued wound care as recommended: 1. Manually reposition patient every 2 hours for comfort and offloading. 2. Cleanse sacral pressure injury with normal saline only! Wound cleanser deactivates Santyl by 87%. 3. Apply Santyl 2mm thick to wound base cover with saline moistened gauze cut to fit wound base secure with boarder gauze. 4. Change dressing daily or as needed for dislodgement/exudate. 5. Sign and date all dressings. - Time Spent with Patient Total time spent providing and/or coordinating discharge services: Greater than 30 minutes - Quality: VTE Deep Vein Thrombosis/Pulmonary Embolism Present on Admission: No Exam Vital signs: Vital Signs 12/20/17 20:00 12/20/17 20:35 12/21/17 00:00 Temperature 97.1 F L 97.7 F Pulse Rate 60 58 L Respiratory Rate 16 12 Blood Pressure 137/65 159/72 H Pulse Oximetry 93 L 93 L 94 L 12/21/17 03:05 12/21/17 04:00 12/21/17 08:00 Temperature 97.6 F 97.6 F Pulse Rate 44 L 54 L Respiratory Rate 16 9 L 14 Blood Pressure 145/74 H 168/75 H Pulse Oximetry 95 95 12/21/17 09:00 12/21/17 12:00 Temperature 97.6 F Pulse Rate 47 L 49 L Respiratory Rate 16 Blood Pressure 148/65 H Pulse Oximetry 95 Intake & Output 12/20/17 12/21/17 12/21/17 18:59 06:59 18:59 Intake Total 1580 / 1580 500 / 500 Output Total 1000 / 1000 900 / 900 Balance 580 / 580 -400 / -400 Weight 87.9 kg Intake: IV 1000 / 1000 Oral 580 / 580 500 / 500 Output: Urine 1000 / 1000 Urine Amount (Catheter) 900 / 900 Female External 900 / 900 Other: Date of Last Bowel Movement 12/19/17 12/19/17 12/19/17 Narrative: GENERAL: Comfortable, drowsy. SKIN: Warm and dry. No rash. HEAD: s/p right craniotomy, postop dressing in place appears C/D/I. NECK: Trachea midline. CARDIOVASCULAR: Bradycardic. +Systolic murmur. RESPIRATORY: No accessory muscle use. Poor effort. Clear to auscultation. Breath sounds equal bilaterally. GASTROINTESTINAL: Abdomen soft, non-tender, nondistended. MUSCULOSKELETAL: Extremities without clubbing, cyanosis, or edema. No obvious deformities. NEUROLOGICAL: Awake and alert. Responds to questions. Results Procedures completed during hospitalization: - Preoperative Diagnosis (1) Brain tumor Date of procedure: 12/18/17 Procedure: Right craniotomy for neoplasm resection; stereotactic BrainLab navigation guidance; microsurgical technique Anesthesia: YOKASTA Surgeon: Antonio Kimball MD Salmon Gillnet Vessel Operator: Moira Pinzon Estimated blood loss (mL): 100 Operation and Findings: Following initiation of general endotracheal anesthesia the patient had invasive lines and Chaudhry catheter in place along with sequential compression device. A gram of vancomycin and Keppra as well as 10 mg Decadron was administered intravenously and he was positioned supine with the right shoulder elevated on a roll and head turned to the left side and secured in the [place] 3 pin headrest. The BrainLab navigation system was then registered with external landmarks and good accuracy confirmed. A right curvilinear temporoparietal incision area head shaved and prepped with ChloraPrep and sterilely draped in the usual sterile fashion. Incision was then made after infiltrating the scalp was 0.5% Marcaine with epinephrine solution a skin incision made and Sharla clips were used at the scalp edges for hemostasis and the flap retracted with hooks. Right temporalis muscle and fascia was also incised and detached from the temporal and occipital bone and retracted with hooks. With an automated service center representative posterior temporal bur hole made and then with the craniotome the bone flap was elevated exposing the temporal parieto- occipital area. The dura opened in a cruciate format and bone holes placed in the craniotomy edges with 4-0 Nurolon dural tacking stitches for hemostasis. Significant brain swelling was noted at this point and further dissection was undertaken using microtechnique with microscope medication. A corticectomy about 2 cm was made at the posterior temporal occipital area overlying the tentorium and subcortical dissection identified at the anterior border of the mass which is localized with the navigation system also. Resection of this mass was undertaken using microtechnique microscope magnification along with the BrainLab navigation guidance. The mass did not appear to have a distinct border between the brain and the mass and was very infiltrative in nature. Initial debulking undertaken in the middle where the vas was grayish in coloration and somewhat necrotic and subsequent circumferential dissection extending from the posterior temporal lobe to the occipital lobe all the way deep down to the occipital horn of the lateral ventricle with a gross total resection achieved. Fresh frozen specimen sent was consistent with high-grade neoplasm and rest of the specimens were sent for permanent pathology sections although most of the mass was suctioned out. Bipolar cautery used for hemostasis in the resection bed along with Gelfoam and thrombin which was then lined with Surgicel and no bleeding was encountered at this point. The brain was very relaxed and pulsatile at this point. The resection bed cavity was filled with saline solution and the dura approximately using 4 Nurolon sutures with a central dural tacking stitch. Bone flap approximated using [place] mini plates and bur hole covers. The area was then copiously irrigated. The temporalis fascia was approximated and using 2-0 Vicryl sutures and the galea reapproximated using 3-0 Vicryl interrupted sutures and final scalp closure was with massiel. The El head was then removed and a sterile pressing dressing applied. There were no intraoperative complications and all sponge and needle count was correct at the end of the procedure. Estimated blood loss about 100 cc. Patient was extubated and taken to the recovery room. Documented By: Antonio Kimball MD 12/18/17 1132 Signed By: Labs on day of discharge: Labs from last 24 hours 12/21/17 12/21/17 12/20/17 05:50 05:50 04:35 WBC 11.8 H RBC 4.12 L Hgb 10.8 L Hct 33.1 L MCV 80.2 MCH 26.2 L MCHC 32.7 RDW 16.7 Plt Count 133 L MPV 9.1 Sodium 139 Potassium 4.3 Chloride 101 Carbon Dioxide 32.5 H Anion Gap 6 BUN 28 H Creatinine 0.57 L Estimated GFR Greater than 89 Random Glucose 116 H Hemoglobin A1c 5.9 Calcium 8.1 L Phosphorus 2.3 L Magnesium 2.3 - Impressions ITS Impressions Cervical Spine CT 12/11/17 13:38 CONCLUSION: 1. Degenerative arthritic changes within the cervical spine as above. No acute fracture or destructive lesion is identified. Chest X-Ray 12/11/17 13:38 CONCLUSION: Mild airspace disease in left upper lobe and right lung base Otherwise stable chest Right [id number] catheter remains in stable position. Abdomen/Pelvis CT 12/12/17 00:00 CONCLUSION: 1. Mild constipation. No acute findings. No evidence for metastatic disease to the abdomen and pelvis. Prior cholecystectomy. Chest CT 12/12/17 00:00 CONCLUSION: 1. When compared with 2014 there is no evidence for tumor recurrence. No new adenopathy or soft tissue mass. Scarring upper left lung possibly related to prior radiation. 2. Coronary artery calcifications. Prior cholecystectomy. [id number] in superior vena cava. Head MRI 12/13/17 00:00 There is no evidence for acute infarction. There is a heterogeneous signal intensity mass identified in the right temporal lobe with a large amount of surrounding vasogenic edema. There is avid enhancement following administration of intravenous contrast. The mass measures approximately 5 x 3.1 cm in AP transverse dimension on axial image 57 of series 18. There is moderate confluent increased FLAIR signal in the periventricular white matter and bilateral centrum semiovale most characteristic of chronic microvascular ischemic disease. There is some blood products seen on susceptibility weighted imaging within the substance of the mass. No other masses are seen. The mass is intra-axial and on sagittal weighted images does extend to the tentorium on coronal image 126 of series 101. There is also extension to the inferior margin of the right temporal horn. CONCLUSION: 1. There is an avidly enhancing mass in the right temporal lobe identified. This is a new finding and would be most suspicious for metastatic disease. 2. White matter disease is felt to be chronic in nature. Head CT 12/19/17 00:00 CONCLUSION: Satisfactory postoperative appearance. . Discharge Plan - Discharge Disposition Patient Disposition: 03 Discharge to SNF - Discharge Condition Condition: Stable - Discharge Order Discharge Orders: Discharge Order (Routine); Ordered 12/21/17 Ordered By: Antonio Kimball - Discharge Details Anticipated Discharge Date: 12/21/17 - Physicians Team Primary Care Provider: UNKNOWN, Attending Provider: Cesar Pelaez Other Providers: Chidi Zapata MD ; Daren Brand MD ; Santi Hercules MD ; Katlin Covarrubias MD ; [facility],[place] ; Gabriel Willingham MD
[2017-12-21] MEDS ORDERED: levETIRAcetam 500 MG Tablet PO SCH (21:00)
--- NOTE | 2017-12-22 13:27 | ECG ---
Date Performed: 12/20/2017 Time Performed: 16:32:52 PTAGE: 77 years EKG: SINUS BRADYCARDIA BORDERLINE ECG PREVIOUS TRACING : 12/15/2017 09.58 Since the previous tracing, no significant change noted DOCTOR: Jose Garrett Interpretating Date/Time 12/22/2017 13:26:51
== END 2017-12-21 16:22 ==
LOC: NEPD 13:04 → NEDA 16:35 → N05 20:59 → N03 12-18 11:52
PROVIDERS: ADMIT Hospitalist; ATTEND Hospitalist
DX: Z78.1 Physical restraint status; S00.81XA Abrasion of other part of head, initial encounter; M46.92 Unspecified inflammatory spondylopathy, cervical region; Z85.118 Personal history of other malignant neoplasm of bronchus and lung; F02.80 Dementia in other diseases classified elsewhere, unspecified severity, without behavioral disturbance, psychotic disturbance, mood disturbance, and anxiety; R29.6 Repeated falls; G25.81 Restless legs syndrome; C79.31 Secondary malignant neoplasm of brain; D63.0 Anemia in neoplastic disease; F32.9 Major depressive disorder, single episode, unspecified; Z92.21 Personal history of antineoplastic chemotherapy; G62.9 Polyneuropathy, unspecified; E78.5 Hyperlipidemia, unspecified; Y92.129 Unspecified place in nursing home as the place of occurrence of the external cause; J44.9 Chronic obstructive pulmonary disease, unspecified; I25.2 Old myocardial infarction; G30.9 Alzheimer's disease, unspecified; I25.10 Atherosclerotic heart disease of native coronary artery without angina pectoris; I10 Essential (primary) hypertension; W05.0XXA Fall from non-moving wheelchair, initial encounter; C85.11 Unspecified B-cell lymphoma, lymph nodes of head, face, and neck; R00.1 Bradycardia, unspecified; F41.9 Anxiety disorder, unspecified; F05 Delirium due to known physiological condition; G93.6 Cerebral edema; L89.153 Pressure ulcer of sacral region, stage 3; Z66 Do not resuscitate; Z92.3 Personal history of irradiation; Z99.3 Dependence on wheelchair; I95.9 Hypotension, unspecified; Z87.891 Personal history of nicotine dependence

== ENCOUNTER 2018-02-08 06:08 | Inpatient (IN) ==
[2018-02-08] MEDS ORDERED: Etomidate Inj 40 MG/20 ML Vial IV.PUSH ONE (06:14)
[2018-02-08] MEDS ORDERED: MethylPREDNISolone Sod Succinate Inj 125 MG/2 ML Vial IV.PUSH ONE (06:22)
[2018-02-08] MEDS ORDERED: Piperacil/Tazo 4.5 GM Premix 4.5 GM/100 ML BAG IV.SIG ONE (06:22)
[2018-02-08] MEDS ORDERED: Vancomycin Inj 1,000 MG in Sodium Chlor 0.9% Inj 250 ML IV.SIG ONE (06:22)
[2018-02-08] MEDS ORDERED: Sod Chloride 0.9% Inj 1,000 ML IV.SIG SCH ×4 (06:30→13:07)
[2018-02-08] MEDS ORDERED: Propofol 1000 mg/100 ml Inj 1,000 MG/100 ML BOTTLE IV.CONT PRN (06:43)
--- NOTE | 2018-02-08 06:43 | ED ---
HPI General Chief Complaint: Altered Mental Status Stated Complaint: Respiratory Time Seen by Provider: 02/08/18 06:22 Source: EMS and RN notes reviewed (care home notes) Mode of arrival: EMS Limitations: altered mental status History of Present Illness 77-year-old male presents to the emergency department from care home by EMS transport after reportedly nursing staff found the patient with low oxygenation and altered mentation this morning. Reportedly oxygenation within the 70% range placement was placed on 2 L/min nasal cannula with no improvement EMS was called and upon their arrival patient was noted to have marked hypoxia and was placed on nonrebreather mask and IV access obtained bolus of normal saline and transported to the emergency room. According to bread icer report patient was also noted to be hypotensive. No reported fever. 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 Patient underwent right craniotomy with gross total resection of tumor which was consistent with large B-cell lymphoma per his oncology note Dr. Rasmussen patient was determined not to be a candidate for high-dose methotrexate but potentially a candidate for chemotherapy with temozolomide and Rituxan, by Dr. Kimball 12/18/17. Patient had seizure placed on Keppra. Also noted to have CAD dyslipidemia depression peripheral neuropathy restless leg syndrome cholecystectomy laminectomy Aasikw-u-Fury placement and balance disorder. Patient is not currently identified to be on antibiotic. MD Complaint: Reports shortness of breath and cough Onset (ago): minute(s) Context: Reports recent illness; Denies occurred during exertion, choking/ aspiration, medication noncompliance, allergen exposure, recent travel, smoke/ fume exposure, anxiety, trauma/injury, elevated blood glucose and CO exposure Severity: severe Consistency/Duration: constant Relieving factors: oxygen Exacerbating factors: nothing Known history of: Reports COPD, asthma, recurrent pneumonia and other (Small cell lung cancer with metastatic disease to the brain) Associated symptoms: Reports cough Treatment prior to arrival: Reports oxygen Related Data Home oxygen amount: 2 liters Home Medications Medication Instructions Recorded Confirmed amlodipine 5 mg PO DAILY 12/11/17 02/08/18 budesonide-formoterol [Symbicort] 2 puff INHALATION BID 12/11/17 02/08/18 calcium carbonate-vitamin D3 1 tab PO DAILY 12/11/17 02/08/18 [Calcium 600 + D(3)] ferrous sulfate [Iron (ferrous 325 mg PO BID 12/11/17 02/08/18 sulfate)] folic acid 0.4 mg PO DAILY 12/11/17 02/08/18 gabapentin 300 mg PO BID 12/11/17 02/08/18 ipratropium-albuterol 3 ml INHALATION Q8H 12/11/17 02/08/18 olanzapine 5 mg PO DAILY 12/11/17 02/08/18 pediatric [id number] 1 tab PO DAILY 12/11/17 02/08/18 [Multi-Vitamins with Iron] potassium chloride 10 meq PO DAILY 12/11/17 02/08/18 pravastatin 20 mg PO DAILY 12/11/17 02/08/18 sertraline 100 mg PO DAILY 12/11/17 02/08/18 zinc sulfate 220 mg PO DAILY 12/11/17 02/08/18 Previous Rx's Medication Instructions Recorded collagenase clostridium histo. 1 applicatio TOPICAL DAILY g 12/21/17 [Santyl] dexamethasone 4 mg PO TID #30 tab 12/21/17 hydrocodone-acetaminophen 1 tab PO Q4H PRN #12 tab 12/21/17 lisinopril 5 mg PO DAILY tab 12/21/17 Allergies Allergy/AdvReac Type Severity Reaction Status Date / Time No Known Allergies Allergy Verified 02/08/18 06:15 Review of Systems ROS: all other systems reviewed are negative [facility] Medical History Medical History Hypertension (Acute) Major depressive disorder (Acute) Dementia (Acute) Restless leg syndrome (Acute) COPD (chronic obstructive pulmonary disease) (Acute) Hyperlipidemia (Acute) Frequent falls (Acute) Malignant neoplasm of upper lobe of lung (Acute) Anemia (Acute) Surgical History Surgical History History of laminectomy (Acute) Hx of cholecystectomy (Acute) Hx of foot surgery (Acute) Family History Family History Other Family history of [place] (myocardial infarction) Social History Social History Substance History: No History of Abuse Second Hand Smoke Exposure: No Smoking Status: Former smoker (Quit smoking approximately 10 years ago.) Tobacco Type: Cigarettes How Often Do You Have a Drink Containing Alcohol: Never Recent Travel in [facility] within the Last 8 Weeks: No Recent Out of Country Travel within the Last 8 Weeks: No Immunization History Tetanus Immunization: Unsure Exam Narrative Exam Narrative: GENERAL: Well-nourished, well-developed patient. In marked respiratory distress with poor ventilatory effort. SKIN: Focused skin assessment warm/dry. HEAD: Normocephalic. EYES: No scleral icterus. No injection or drainage. Pupils round reactive to light. NECK: Supple, trachea midline. No JVD or lymphadenopathy. CARDIOVASCULAR: Increased regular rate and rhythm without murmurs, gallops, or rubs. Chest wall: Right anterior chest [id number] RESPIRATORY: Breath sounds equal bilaterally diminished bilaterally with rhonchi and accessory muscle use. GASTROINTESTINAL: Abdomen soft, non-tender, nondistended. MUSCULOSKELETAL: No cyanosis, or edema. BACK: Nontender without obvious deformity. No CVA tenderness. Procedures Central Line Placement Right Femoral: Time Out Performed: Yes Patient Placed on Monitor/Pulse Ox: Yes Central Line Prep: Chlorhexidine scrub Ultrasound Used for Placement: Yes Central Line Lumen Inserted: single and triple (7) Post Procedure: sutured in place, good blood return, all ports aspirated, flushed, capped and sterile dressing applied Patient Tolerated Procedure: well Complications: none Intubation Time Out Performed: Yes Sedative: etomidate (20) Mg Given: 20 Paralytic: succinylcholine (90) Mg Given: 90 Laryngoscope: Tiago ET Tube Size: 8 ET Tube Uncuffed: No Tube Secured Depth (cm): 24 Tube Secured Location: lips Tube Placement Confirmation: visualized tube passing through cords, equal breath sounds bilaterally, no breath sounds over epigastrium and confirmation by capnometry Patient Tolerated Procedure: well Intubation Complications: none Course Consultations Consultation #1: Discussed with and accepted by capsule machine operator Dr. Pittman Time: 07:37 Initial Documented Vital Signs Temperature 98.7 F 02/08/18 06:20 Pulse Rate 134 H 02/08/18 06:20 Respiratory Rate 29 H 02/08/18 06:20 Blood Pressure 110/74 02/08/18 06:20 Pulse Oximetry 96 02/08/18 06:20 Last Documented Vital Signs Temperature 99.0 F 02/10/18 00:00 Pulse Rate 74 02/10/18 00:00 Respiratory Rate 13 02/10/18 00:00 Blood Pressure 98/53 L 02/10/18 00:00 Pulse Oximetry 96 02/10/18 00:00 Critical Care Time Critical Care Time: Yes Total Critical Care Time: 35 Attestation: Aggregate critical care time was 35 minutes. Time to perform other separately billable procedures was not included in the critical care time. My time did not include minutes spent treating any other patients simultaneously or on activities that did not directly contribute to the patient's treatment. The services I provided to this patient were to treat and/or prevent clinically significant deterioration that could result in: Respiratory arrest, arrhythmia, septic shock, I provided critical care services requiring my management, as noted below: Chart data review, documentation time, medication orders and management, vital sign assessments/reviewing monitor data, ordering and reviewing lab tests, ordering and interpreting/reviewing x-rays and diagnostic studies, care of the patient and discussion of the patient with the admitting physicians. Medical Decision Making MDM Narrative Medical decision making narrative: 77-year-old male with history of non-small cell lung cancer with recent diagnosis of large B cell brain cancer presents from care home in a acute respiratory distress found to be hypoxemic in the care home and hypotensive in route. No reported fever. Patient recently underwent craniotomy December [address] Kimball. Patient found to be in acute respiratory distress decision was made to emergently intubate the patient; patient was placed in optimal position preoxygenated with ampule assisted ventilations suction at bedside administer 20 mg of etomidate and 90 mg of succinylcholine cords were visualized and a #8 oh cuffed tube was placed without difficulty on first pass secured 24 at the lip stat post intubation chest x-ray ordered. IV access peripheral as well as [id number] accessed patient given 2 L of normal saline and propofol ordered for sedation post intubation patient was identified subsequently to have hypotension prior to propofol initiation patient given additional fluid order for an additional liter of fluid and central line was placed in the right femoral vein without complication. Patient's case was discussed with capsule machine operator Dr. Pittman and accepted for admission CT brain CTA PE pending chest x-ray shows endotracheal tube in good position and right lower lobe pneumonia sepsis exacerbation copd with hypoxemia; chemistries and cardiac enzymes pending at time of admission to ICU to Dr Pittman's service alos CT studies not yet performed .. changed from propofol to versed and fentanyl infusion Medical Screen Exam Complete: Yes Emergency Medical Condition: Yes Differential Diagnosis Differential Diagnosis: Pneumonia sepsis exacerbation COPD with hypoxemia metabolic acidosis ICH seizure NE [facility] Medical Records Medical records reviewed: Yes I reviewed the patient's medical records. Lab Data Lab results reviewed: Yes I reviewed the patient's lab results. Result diagrams: 02/09/18 04:00 02/09/18 16:15 Lab Results 02/08/18 02/08/18 02/08/18 Range/Units 06:30 06:33 06:35 WBC 5.1 (4.0-11.0) th/mm3 RBC 4.45 L (4.50-5.90) mil/mm3 Hgb 12.6 L (13.0-17.0) gm/dL Hct 38.6 L (39.0-51.0) % MCV 86.8 (80.0-100.0) fL MCH 28.5 (27.0-34.0) pg MCHC 32.8 (32.0-36.0) % RDW 21.1 H (11.6-17.2) % Plt Count 139 L (150-450) th/mm3 MPV 7.7 (7.0-11.0) fL Prelim Diff (Auto) Neut % (Auto) 78.2 H (16.0-70.0) % Lymph % (Auto) 18.6 (9.0-44.0) % [place] % (Auto) 2.8 (0.0-8.0) % Eos % (Auto) 0.2 (0.0-4.0) % Baso % (Auto) 0.2 (0.0-2.0) % Neut # (Auto) 4.0 (1.8-7.7) th/mm3 Lymph # (Auto) 1.0 (1.0-4.8) th/mm3 [place] # (Auto) 0.1 (0.0-0.9) th/mm3 Eos # (Auto) 0.0 (0.0-0.4) th/mm3 Baso # (Auto) 0.0 (0.0-0.2) th/mm3 WBC Differential . Seg Neuts % (Manual) (16-70) % Band Neuts % (Manual) (0-6) % Lymphocytes % (Manual) (9-44) % Monocytes % (Manual) (0-8) % Eosinophils % (Manual) (0-4) % Metamyelocytes % (Man) (0-1) % Myelocytes % (Man) (0-0) % Abs Neuts (Manual) (1.8-7.7) th/mm3 Nucleated RBCs/100 WBC (0-0) /100 WBC Differential Comment Auto diff final Dohle Bodies (None) Platelet Estimate (Normal) Platelet Morphology (Normal) Basophilic Stippling (None) Ovalocytes (None) Keratocytes (None) PT (9.8-11.6) sec INR Ratio APTT (23.4-31.7) sec Puncture Site Left radial Patient Temperature 98.6 O2 Saturation 84 L* (90-100) % ABG pH 7.30 L (7.380-7.420) ABG pCO2 45 H (38-42) mmHg ABG pO2 58 L* (61-120) mmHg ABG HCO3 21 L (22-26) mmol/L ABG O2 Content 15.3 (12.0-20.0) Vol % ABG Base Excess -4.0 L (-2-2) mmol/L ABG Methemoglobin 0.7 (0-2) % Rob Test Present Hemoglobin 12.9 (12.0-16.0) G/DL Carboxyhemoglobin 1.2 (0-4) % O2 Delivery Device Ventilator Vent Setting Vac16/550/peep 5 Inspired O2 100 % Critical Value Yes Sodium (136-145) meq/L Potassium (3.5-5.1) meq/L Chloride (98-107) meq/L Carbon Dioxide (21.0-32.0) meq/L Anion Gap (5-15) meq/L BUN (7-18) mg/dL Creatinine (0.60-1.30) mg/dL Estimated GFR (>89) mL/min POC Glucose 84 (68-110) mg/dl Random Glucose (74-106) mg/dL Lactic Acid (0.4-2.0) mmol/L Calcium (8.5-10.1) mg/dL Prot Corrected Calcium (8.5-10.1) mg/dL Phosphorus (2.5-4.9) mg/dL Magnesium (1.5-2.5) mg/dL Total Bilirubin (0.2-1.0) mg/dL AST (15-37) U/L ALT (12-78) U/L Alkaline Phosphatase (45-117) U/L Total Creatine Kinase (39-308) U/L CK-MB (CK-2) (0.5-3.6) ng/mL CK-MB (CK-2) % (0.0-4.0) % Troponin I (0.02-0.05) ng/mL B-Natriuretic Peptide (0-100) pg/mL Total Protein (6.4-8.2) g/dL Albumin (3.4-5.0) g/dL Urine Color (Yellw/Straw) Urine Clarity (Clear) Urine pH (5.0-8.5) Ur Specific [place] (1.002-1.035) Urine Protein (Neg-Trace) mg/dL Urine Glucose (UA) (Negative) mg/dL Urine Ketones (Negative) mg/dL Urine Occult Blood (Negative) Urine Nitrate (Negative) Urine Bilirubin (Negative) Urine Urobilinogen (Less than 2) mg/dL Ur Leukocyte Esterase (Negative) Urine RBC (0-3) /hpf Urine WBC (0-5) /hpf Ur Squamous Epith Cells (0-5) /hpf Amorphous Sediment (None) /hpf Urine Bacteria (None) /hpf Hyaline Casts (0-3) /lpf Granular Casts (None) /lpf Urine Mucus (Occasional) /lpf Micro UA Comment Ur Microscopic Review Urine Culture Comments Ur Random Creatinine (27-300) mg/dL Ur Random Sodium Nasal Screen MRSA (PCR) (Negative) 02/08/18 02/08/18 02/08/18 Range/Units 06:35 06:35 06:35 WBC (4.0-11.0) th/mm3 RBC (4.50-5.90) mil/mm3 Hgb (13.0-17.0) gm/dL Hct (39.0-51.0) % MCV (80.0-100.0) fL MCH (27.0-34.0) pg MCHC (32.0-36.0) % RDW (11.6-17.2) % Plt Count (150-450) th/mm3 MPV (7.0-11.0) fL Prelim Diff (Auto) Neut % (Auto) (16.0-70.0) % Lymph % (Auto) (9.0-44.0) % [place] % (Auto) (0.0-8.0) % Eos % (Auto) (0.0-4.0) % Baso % (Auto) (0.0-2.0) % Neut # (Auto) (1.8-7.7) th/mm3 Lymph # (Auto) (1.0-4.8) th/mm3 [place] # (Auto) (0.0-0.9) th/mm3 Eos # (Auto) (0.0-0.4) th/mm3 Baso # (Auto) (0.0-0.2) th/mm3 WBC Differential Seg Neuts % (Manual) (16-70) % Band Neuts % (Manual) (0-6) % Lymphocytes % (Manual) (9-44) % Monocytes % (Manual) (0-8) % Eosinophils % (Manual) (0-4) % Metamyelocytes % (Man) (0-1) % Myelocytes % (Man) (0-0) % Abs Neuts (Manual) (1.8-7.7) th/mm3 Nucleated RBCs/100 WBC (0-0) /100 WBC Differential Comment Dohle Bodies (None) Platelet Estimate (Normal) Platelet Morphology (Normal) Basophilic Stippling (None) Ovalocytes (None) Keratocytes (None) PT 10.6 (9.8-11.6) sec INR 1.0 Ratio APTT 29.4 (23.4-31.7) sec Puncture Site Patient Temperature O2 Saturation (90-100) % ABG pH (7.380-7.420) ABG pCO2 (38-42) mmHg ABG pO2 (61-120) mmHg ABG HCO3 (22-26) mmol/L ABG O2 Content (12.0-20.0) Vol % ABG Base Excess (-2-2) mmol/L ABG Methemoglobin (0-2) % Rob Test Hemoglobin (12.0-16.0) G/DL Carboxyhemoglobin (0-4) % O2 Delivery Device Vent Setting Inspired O2 % Critical Value Sodium 140 (136-145) meq/L Potassium 4.4 (3.5-5.1) meq/L Chloride 107 (98-107) meq/L Carbon Dioxide 21.7 (21.0-32.0) meq/L Anion Gap 11 (5-15) meq/L BUN 37 H (7-18) mg/dL Creatinine 1.36 H (0.60-1.30) mg/dL Estimated GFR 51 L (>89) mL/min POC Glucose (68-110) mg/dl Random Glucose 75 (74-106) mg/dL Lactic Acid 4.6 H* (0.4-2.0) mmol/L Calcium 7.6 L (8.5-10.1) mg/dL Prot Corrected Calcium (8.5-10.1) mg/dL Phosphorus (2.5-4.9) mg/dL Magnesium 2.0 (1.5-2.5) mg/dL Total Bilirubin 0.4 (0.2-1.0) mg/dL AST 29 (15-37) U/L ALT 23 (12-78) U/L Alkaline Phosphatase 45 (45-117) U/L Total Creatine Kinase 636 H (39-308) U/L CK-MB (CK-2) 6.9 H (0.5-3.6) ng/mL CK-MB (CK-2) % 1.1 (0.0-4.0) % Troponin I 0.20 H (0.02-0.05) ng/mL B-Natriuretic Peptide (0-100) pg/mL Total Protein 5.4 L (6.4-8.2) g/dL Albumin 2.0 L (3.4-5.0) g/dL Urine Color (Yellw/Straw) Urine Clarity (Clear) Urine pH (5.0-8.5) Ur Specific [place] (1.002-1.035) Urine Protein (Neg-Trace) mg/dL Urine Glucose (UA) (Negative) mg/dL Urine Ketones (Negative) mg/dL Urine Occult Blood (Negative) Urine Nitrate (Negative) Urine Bilirubin (Negative) Urine Urobilinogen (Less than 2) mg/dL Ur Leukocyte Esterase (Negative) Urine RBC (0-3) /hpf Urine WBC (0-5) /hpf Ur Squamous Epith Cells (0-5) /hpf Amorphous Sediment (None) /hpf Urine Bacteria (None) /hpf Hyaline Casts (0-3) /lpf Granular Casts (None) /lpf Urine Mucus (Occasional) /lpf Micro UA Comment Ur Microscopic Review Urine Culture Comments Ur Random Creatinine (27-300) mg/dL Ur Random Sodium Nasal Screen MRSA (PCR) (Negative) 02/08/18 02/08/18 02/08/18 Range/Units 06:35 06:35 09:26 WBC (4.0-11.0) th/mm3 RBC (4.50-5.90) mil/mm3 Hgb (13.0-17.0) gm/dL Hct (39.0-51.0) % MCV (80.0-100.0) fL MCH (27.0-34.0) pg MCHC (32.0-36.0) % RDW (11.6-17.2) % Plt Count (150-450) th/mm3 MPV (7.0-11.0) fL Prelim Diff (Auto) Neut % (Auto) (16.0-70.0) % Lymph % (Auto) (9.0-44.0) % [place] % (Auto) (0.0-8.0) % Eos % (Auto) (0.0-4.0) % Baso % (Auto) (0.0-2.0) % Neut # (Auto) (1.8-7.7) th/mm3 Lymph # (Auto) (1.0-4.8) th/mm3 [place] # (Auto) (0.0-0.9) th/mm3 Eos # (Auto) (0.0-0.4) th/mm3 Baso # (Auto) (0.0-0.2) th/mm3 WBC Differential Seg Neuts % (Manual) (16-70) % Band Neuts % (Manual) (0-6) % Lymphocytes % (Manual) (9-44) % Monocytes % (Manual) (0-8) % Eosinophils % (Manual) (0-4) % Metamyelocytes % (Man) (0-1) % Myelocytes % (Man) (0-0) % Abs Neuts (Manual) (1.8-7.7) th/mm3 Nucleated RBCs/100 WBC (0-0) /100 WBC Differential Comment Dohle Bodies (None) Platelet Estimate (Normal) Platelet Morphology (Normal) Basophilic Stippling (None) Ovalocytes (None) Keratocytes (None) PT (9.8-11.6) sec INR Ratio APTT (23.4-31.7) sec Puncture Site Patient Temperature O2 Saturation (90-100) % ABG pH (7.380-7.420) ABG pCO2 (38-42) mmHg ABG pO2 (61-120) mmHg ABG HCO3 (22-26) mmol/L ABG O2 Content (12.0-20.0) Vol % ABG Base Excess (-2-2) mmol/L ABG Methemoglobin (0-2) % Rob Test Hemoglobin (12.0-16.0) G/DL Carboxyhemoglobin (0-4) % O2 Delivery Device Vent Setting Inspired O2 % Critical Value Sodium (136-145) meq/L Potassium (3.5-5.1) meq/L Chloride (98-107) meq/L Carbon Dioxide (21.0-32.0) meq/L Anion Gap (5-15) meq/L BUN (7-18) mg/dL Creatinine (0.60-1.30) mg/dL Estimated GFR (>89) mL/min POC Glucose (68-110) mg/dl Random Glucose (74-106) mg/dL Lactic Acid 5.0 H* (0.4-2.0) mmol/L Calcium (8.5-10.1) mg/dL Prot Corrected Calcium (8.5-10.1) mg/dL Phosphorus (2.5-4.9) mg/dL Magnesium (1.5-2.5) mg/dL Total Bilirubin (0.2-1.0) mg/dL AST (15-37) U/L ALT (12-78) U/L Alkaline Phosphatase (45-117) U/L Total Creatine Kinase (39-308) U/L CK-MB (CK-2) (0.5-3.6) ng/mL CK-MB (CK-2) % (0.0-4.0) % Troponin I (0.02-0.05) ng/mL B-Natriuretic Peptide 223 H (0-100) pg/mL Total Protein (6.4-8.2) g/dL Albumin (3.4-5.0) g/dL Urine Color Nicole (Yellw/Straw) Urine Clarity Cloudy H (Clear) Urine pH 5.0 (5.0-8.5) Ur Specific [place] 1.023 (1.002-1.035) Urine Protein 30 H (Neg-Trace) mg/dL Urine Glucose (UA) Negative (Negative) mg/dL Urine Ketones Negative (Negative) mg/dL Urine Occult Blood Negative (Negative) Urine Nitrate Negative (Negative) Urine Bilirubin Negative (Negative) Urine Urobilinogen 4 or greater (Less than 2) mg/dL Ur Leukocyte Esterase Negative (Negative) Urine RBC Less than 1 (0-3) /hpf Urine WBC 1 (0-5) /hpf Ur Squamous Epith Cells 1 (0-5) /hpf Amorphous Sediment Occasional H (None) /hpf Urine Bacteria Few H (None) /hpf Hyaline Casts 7 (0-3) /lpf Granular Casts 5 (None) /lpf Urine Mucus Few H (Occasional) /lpf Micro UA Comment Cath-culture ind Ur Microscopic Review Not Reportable Urine Culture Comments Cath-cult indicated Ur Random Creatinine (27-300) mg/dL Ur Random Sodium Nasal Screen MRSA (PCR) (Negative) 02/08/18 02/08/18 02/08/18 Range/Units 10:12 11:00 11:52 WBC (4.0-11.0) th/mm3 RBC (4.50-5.90) mil/mm3 Hgb (13.0-17.0) gm/dL Hct (39.0-51.0) % MCV (80.0-100.0) fL MCH (27.0-34.0) pg MCHC (32.0-36.0) % RDW (11.6-17.2) % Plt Count (150-450) th/mm3 MPV (7.0-11.0) fL Prelim Diff (Auto) Neut % (Auto) (16.0-70.0) % Lymph % (Auto) (9.0-44.0) % [place] % (Auto) (0.0-8.0) % Eos % (Auto) (0.0-4.0) % Baso % (Auto) (0.0-2.0) % Neut # (Auto) (1.8-7.7) th/mm3 Lymph # (Auto) (1.0-4.8) th/mm3 [place] # (Auto) (0.0-0.9) th/mm3 Eos # (Auto) (0.0-0.4) th/mm3 Baso # (Auto) (0.0-0.2) th/mm3 WBC Differential Seg Neuts % (Manual) (16-70) % Band Neuts % (Manual) (0-6) % Lymphocytes % (Manual) (9-44) % Monocytes % (Manual) (0-8) % Eosinophils % (Manual) (0-4) % Metamyelocytes % (Man) (0-1) % Myelocytes % (Man) (0-0) % Abs Neuts (Manual) (1.8-7.7) th/mm3 Nucleated RBCs/100 WBC (0-0) /100 WBC Differential Comment Dohle Bodies (None) Platelet Estimate (Normal) Platelet Morphology (Normal) Basophilic Stippling (None) Ovalocytes (None) Keratocytes (None) PT (9.8-11.6) sec INR Ratio APTT (23.4-31.7) sec Puncture Site Left radial Patient Temperature 98.6 O2 Saturation 91 (90-100) % ABG pH 7.27 L* (7.380-7.420) ABG pCO2 38 (38-42) mmHg ABG pO2 72 (61-120) mmHg ABG HCO3 17 L (22-26) mmol/L ABG O2 Content 15.1 (12.0-20.0) Vol % ABG Base Excess -8.5 L (-2-2) mmol/L ABG Methemoglobin 1.6 (0-2) % Rob Test Present Hemoglobin 11.8 L (12.0-16.0) G/DL Carboxyhemoglobin 0.9 (0-4) % O2 Delivery Device Ventilator Vent Setting Ac16/500/+10 Inspired O2 100 % Critical Value Yes Sodium (136-145) meq/L Potassium (3.5-5.1) meq/L Chloride (98-107) meq/L Carbon Dioxide (21.0-32.0) meq/L Anion Gap (5-15) meq/L BUN (7-18) mg/dL Creatinine (0.60-1.30) mg/dL Estimated GFR (>89) mL/min POC Glucose 86 104 (68-110) mg/dl Random Glucose (74-106) mg/dL Lactic Acid (0.4-2.0) mmol/L Calcium (8.5-10.1) mg/dL Prot Corrected Calcium (8.5-10.1) mg/dL Phosphorus (2.5-4.9) mg/dL Magnesium (1.5-2.5) mg/dL Total Bilirubin (0.2-1.0) mg/dL AST (15-37) U/L ALT (12-78) U/L Alkaline Phosphatase (45-117) U/L Total Creatine Kinase (39-308) U/L CK-MB (CK-2) (0.5-3.6) ng/mL CK-MB (CK-2) % (0.0-4.0) % Troponin I (0.02-0.05) ng/mL B-Natriuretic Peptide (0-100) pg/mL Total Protein (6.4-8.2) g/dL Albumin (3.4-5.0) g/dL Urine Color (Yellw/Straw) Urine Clarity (Clear) Urine pH (5.0-8.5) Ur Specific [place] (1.002-1.035) Urine Protein (Neg-Trace) mg/dL Urine Glucose (UA) (Negative) mg/dL Urine Ketones (Negative) mg/dL Urine Occult Blood (Negative) Urine Nitrate (Negative) Urine Bilirubin (Negative) Urine Urobilinogen (Less than 2) mg/dL Ur Leukocyte Esterase (Negative) Urine RBC (0-3) /hpf Urine WBC (0-5) /hpf Ur Squamous Epith Cells (0-5) /hpf Amorphous Sediment (None) /hpf Urine Bacteria (None) /hpf Hyaline Casts (0-3) /lpf Granular Casts (None) /lpf Urine Mucus (Occasional) /lpf Micro UA Comment Ur Microscopic Review Urine Culture Comments Ur Random Creatinine (27-300) mg/dL Ur Random Sodium Nasal Screen MRSA (PCR) (Negative) 02/08/18 02/08/18 02/08/18 Range/Units 12:58 12:58 12:58 WBC 8.6 D (4.0-11.0) th/mm3 RBC 4.14 L (4.50-5.90) mil/mm3 Hgb 11.8 L (13.0-17.0) gm/dL Hct 36.3 L (39.0-51.0) % MCV 87.7 (80.0-100.0) fL MCH 28.5 (27.0-34.0) pg MCHC 32.5 (32.0-36.0) % RDW 21.7 H (11.6-17.2) % Plt Count 163 (150-450) th/mm3 MPV 7.9 (7.0-11.0) fL Prelim Diff (Auto) Slide review pending Neut % (Auto) 86.0 H (16.0-70.0) % Lymph % (Auto) 10.7 (9.0-44.0) % [place] % (Auto) 3.2 (0.0-8.0) % Eos % (Auto) 0.0 (0.0-4.0) % Baso % (Auto) 0.1 (0.0-2.0) % Neut # (Auto) 7.4 (1.8-7.7) th/mm3 Lymph # (Auto) 0.9 L (1.0-4.8) th/mm3 [place] # (Auto) 0.3 (0.0-0.9) th/mm3 Eos # (Auto) 0.0 (0.0-0.4) th/mm3 Baso # (Auto) 0.0 (0.0-0.2) th/mm3 WBC Differential Manual diff final Seg Neuts % (Manual) 46 (16-70) % Band Neuts % (Manual) 45 H (0-6) % Lymphocytes % (Manual) 5 L (9-44) % Monocytes % (Manual) 1 (0-8) % Eosinophils % (Manual) 1 (0-4) % Metamyelocytes % (Man) 1 (0-1) % Myelocytes % (Man) 1 H (0-0) % Abs Neuts (Manual) 8.0 H (1.8-7.7) th/mm3 Nucleated RBCs/100 WBC 1 H (0-0) /100 WBC Differential Comment . Dohle Bodies Present H (None) Platelet Estimate Normal (Normal) Platelet Morphology Normal (Normal) Basophilic Stippling (None) Ovalocytes (None) Keratocytes (None) PT (9.8-11.6) sec INR Ratio APTT (23.4-31.7) sec Puncture Site Patient Temperature O2 Saturation (90-100) % ABG pH (7.380-7.420) ABG pCO2 (38-42) mmHg ABG pO2 (61-120) mmHg ABG HCO3 (22-26) mmol/L ABG O2 Content (12.0-20.0) Vol % ABG Base Excess (-2-2) mmol/L ABG Methemoglobin (0-2) % Rob Test Hemoglobin (12.0-16.0) G/DL Carboxyhemoglobin (0-4) % O2 Delivery Device Vent Setting Inspired O2 % Critical Value Sodium 142 (136-145) meq/L Potassium 5.4 H D (3.5-5.1) meq/L Chloride 109 H (98-107) meq/L Carbon Dioxide 19.3 L (21.0-32.0) meq/L Anion Gap 14 (5-15) meq/L BUN 39 H (7-18) mg/dL Creatinine 1.76 H (0.60-1.30) mg/dL Estimated GFR 38 L (>89) mL/min POC Glucose (68-110) mg/dl Random Glucose 112 H (74-106) mg/dL Lactic Acid (0.4-2.0) mmol/L Calcium 7.2 L* (8.5-10.1) mg/dL Prot Corrected Calcium 8.1 L (8.5-10.1) mg/dL Phosphorus (2.5-4.9) mg/dL Magnesium (1.5-2.5) mg/dL Total Bilirubin 0.4 (0.2-1.0) mg/dL AST 67 H (15-37) U/L ALT 34 (12-78) U/L Alkaline Phosphatase 45 (45-117) U/L Total Creatine Kinase (39-308) U/L CK-MB (CK-2) (0.5-3.6) ng/mL CK-MB (CK-2) % (0.0-4.0) % Troponin I Cancelled 0.38 H (0.02-0.05) ng/mL B-Natriuretic Peptide (0-100) pg/mL Total Protein 5.4 L (6.4-8.2) g/dL Albumin 1.9 L (3.4-5.0) g/dL Urine Color (Yellw/Straw) Urine Clarity (Clear) Urine pH (5.0-8.5) Ur Specific [place] (1.002-1.035) Urine Protein (Neg-Trace) mg/dL Urine Glucose (UA) (Negative) mg/dL Urine Ketones (Negative) mg/dL Urine Occult Blood (Negative) Urine Nitrate (Negative) Urine Bilirubin (Negative) Urine Urobilinogen (Less than 2) mg/dL Ur Leukocyte Esterase (Negative) Urine RBC (0-3) /hpf Urine WBC (0-5) /hpf Ur Squamous Epith Cells (0-5) /hpf Amorphous Sediment (None) /hpf Urine Bacteria (None) /hpf Hyaline Casts (0-3) /lpf Granular Casts (None) /lpf Urine Mucus (Occasional) /lpf Micro UA Comment Ur Microscopic Review Urine Culture Comments Ur Random Creatinine (27-300) mg/dL Ur Random Sodium Nasal Screen MRSA (PCR) (Negative) 02/08/18 02/08/18 02/08/18 Range/Units 12:58 17:17 18:05 WBC (4.0-11.0) th/mm3 RBC (4.50-5.90) mil/mm3 Hgb (13.0-17.0) gm/dL Hct (39.0-51.0) % MCV (80.0-100.0) fL MCH (27.0-34.0) pg MCHC (32.0-36.0) % RDW (11.6-17.2) % Plt Count (150-450) th/mm3 MPV (7.0-11.0) fL Prelim Diff (Auto) Neut % (Auto) (16.0-70.0) % Lymph % (Auto) (9.0-44.0) % [place] % (Auto) (0.0-8.0) % Eos % (Auto) (0.0-4.0) % Baso % (Auto) (0.0-2.0) % Neut # (Auto) (1.8-7.7) th/mm3 Lymph # (Auto) (1.0-4.8) th/mm3 [place] # (Auto) (0.0-0.9) th/mm3 Eos # (Auto) (0.0-0.4) th/mm3 Baso # (Auto) (0.0-0.2) th/mm3 WBC Differential Seg Neuts % (Manual) (16-70) % Band Neuts % (Manual) (0-6) % Lymphocytes % (Manual) (9-44) % Monocytes % (Manual) (0-8) % Eosinophils % (Manual) (0-4) % Metamyelocytes % (Man) (0-1) % Myelocytes % (Man) (0-0) % Abs Neuts (Manual) (1.8-7.7) th/mm3 Nucleated RBCs/100 WBC (0-0) /100 WBC Differential Comment Dohle Bodies (None) Platelet Estimate (Normal) Platelet Morphology (Normal) Basophilic Stippling (None) Ovalocytes (None) Keratocytes (None) PT (9.8-11.6) sec INR Ratio APTT (23.4-31.7) sec Puncture Site Patient Temperature O2 Saturation (90-100) % ABG pH (7.380-7.420) ABG pCO2 (38-42) mmHg ABG pO2 (61-120) mmHg ABG HCO3 (22-26) mmol/L ABG O2 Content (12.0-20.0) Vol % ABG Base Excess (-2-2) mmol/L ABG Methemoglobin (0-2) % Rob Test Hemoglobin (12.0-16.0) G/DL Carboxyhemoglobin (0-4) % O2 Delivery Device Vent Setting Inspired O2 % Critical Value Sodium (136-145) meq/L Potassium (3.5-5.1) meq/L Chloride (98-107) meq/L Carbon Dioxide (21.0-32.0) meq/L Anion Gap (5-15) meq/L BUN (7-18) mg/dL Creatinine (0.60-1.30) mg/dL Estimated GFR (>89) mL/min POC Glucose 203 H (68-110) mg/dl Random Glucose (74-106) mg/dL Lactic Acid 4.3 H* 4.4 H* (0.4-2.0) mmol/L Calcium (8.5-10.1) mg/dL Prot Corrected Calcium (8.5-10.1) mg/dL Phosphorus (2.5-4.9) mg/dL Magnesium (1.5-2.5) mg/dL Total Bilirubin (0.2-1.0) mg/dL AST (15-37) U/L ALT (12-78) U/L Alkaline Phosphatase (45-117) U/L Total Creatine Kinase (39-308) U/L CK-MB (CK-2) (0.5-3.6) ng/mL CK-MB (CK-2) % (0.0-4.0) % Troponin I (0.02-0.05) ng/mL B-Natriuretic Peptide (0-100) pg/mL Total Protein (6.4-8.2) g/dL Albumin (3.4-5.0) g/dL Urine Color (Yellw/Straw) Urine Clarity (Clear) Urine pH (5.0-8.5) Ur Specific [place] (1.002-1.035) Urine Protein (Neg-Trace) mg/dL Urine Glucose (UA) (Negative) mg/dL Urine Ketones (Negative) mg/dL Urine Occult Blood (Negative) Urine Nitrate (Negative) Urine Bilirubin (Negative) Urine Urobilinogen (Less than 2) mg/dL Ur Leukocyte Esterase (Negative) Urine RBC (0-3) /hpf Urine WBC (0-5) /hpf Ur Squamous Epith Cells (0-5) /hpf Amorphous Sediment (None) /hpf Urine Bacteria (None) /hpf Hyaline Casts (0-3) /lpf Granular Casts (None) /lpf Urine Mucus (Occasional) /lpf Micro UA Comment Ur Microscopic Review Urine Culture Comments Ur Random Creatinine (27-300) mg/dL Ur Random Sodium Nasal Screen MRSA (PCR) (Negative) 02/08/18 02/08/18 02/08/18 Range/Units 19:29 20:00 20:10 WBC (4.0-11.0) th/mm3 RBC (4.50-5.90) mil/mm3 Hgb (13.0-17.0) gm/dL Hct (39.0-51.0) % MCV (80.0-100.0) fL MCH (27.0-34.0) pg MCHC (32.0-36.0) % RDW (11.6-17.2) % Plt Count (150-450) th/mm3 MPV (7.0-11.0) fL Prelim Diff (Auto) Neut % (Auto) (16.0-70.0) % Lymph % (Auto) (9.0-44.0) % [place] % (Auto) (0.0-8.0) % Eos % (Auto) (0.0-4.0) % Baso % (Auto) (0.0-2.0) % Neut # (Auto) (1.8-7.7) th/mm3 Lymph # (Auto) (1.0-4.8) th/mm3 [place] # (Auto) (0.0-0.9) th/mm3 Eos # (Auto) (0.0-0.4) th/mm3 Baso # (Auto) (0.0-0.2) th/mm3 WBC Differential Seg Neuts % (Manual) (16-70) % Band Neuts % (Manual) (0-6) % Lymphocytes % (Manual) (9-44) % Monocytes % (Manual) (0-8) % Eosinophils % (Manual) (0-4) % Metamyelocytes % (Man) (0-1) % Myelocytes % (Man) (0-0) % Abs Neuts (Manual) (1.8-7.7) th/mm3 Nucleated RBCs/100 WBC (0-0) /100 WBC Differential Comment Dohle Bodies (None) Platelet Estimate (Normal) Platelet Morphology (Normal) Basophilic Stippling (None) Ovalocytes (None) Keratocytes (None) PT (9.8-11.6) sec INR Ratio APTT (23.4-31.7) sec Puncture Site Patient Temperature O2 Saturation (90-100) % ABG pH (7.380-7.420) ABG pCO2 (38-42) mmHg ABG pO2 (61-120) mmHg ABG HCO3 (22-26) mmol/L ABG O2 Content (12.0-20.0) Vol % ABG Base Excess (-2-2) mmol/L ABG Methemoglobin (0-2) % Rob Test Hemoglobin (12.0-16.0) G/DL Carboxyhemoglobin (0-4) % O2 Delivery Device Vent Setting Inspired O2 % Critical Value Sodium (136-145) meq/L Potassium (3.5-5.1) meq/L Chloride (98-107) meq/L Carbon Dioxide (21.0-32.0) meq/L Anion Gap (5-15) meq/L BUN (7-18) mg/dL Creatinine (0.60-1.30) mg/dL Estimated GFR (>89) mL/min POC Glucose 188 H (68-110) mg/dl Random Glucose (74-106) mg/dL Lactic Acid (0.4-2.0) mmol/L Calcium (8.5-10.1) mg/dL Prot Corrected Calcium (8.5-10.1) mg/dL Phosphorus (2.5-4.9) mg/dL Magnesium (1.5-2.5) mg/dL Total Bilirubin (0.2-1.0) mg/dL AST (15-37) U/L ALT (12-78) U/L Alkaline Phosphatase (45-117) U/L Total Creatine Kinase (39-308) U/L CK-MB (CK-2) (0.5-3.6) ng/mL CK-MB (CK-2) % (0.0-4.0) % Troponin I 0.33 H (0.02-0.05) ng/mL B-Natriuretic Peptide (0-100) pg/mL Total Protein (6.4-8.2) g/dL Albumin (3.4-5.0) g/dL Urine Color (Yellw/Straw) Urine Clarity (Clear) Urine pH (5.0-8.5) Ur Specific [place] (1.002-1.035) Urine Protein (Neg-Trace) mg/dL Urine Glucose (UA) (Negative) mg/dL Urine Ketones (Negative) mg/dL Urine Occult Blood (Negative) Urine Nitrate (Negative) Urine Bilirubin (Negative) Urine Urobilinogen (Less than 2) mg/dL Ur Leukocyte Esterase (Negative) Urine RBC (0-3) /hpf Urine WBC (0-5) /hpf Ur Squamous Epith Cells (0-5) /hpf Amorphous Sediment (None) /hpf Urine Bacteria (None) /hpf Hyaline Casts (0-3) /lpf Granular Casts (None) /lpf Urine Mucus (Occasional) /lpf Micro UA Comment Ur Microscopic Review Urine Culture Comments Ur Random Creatinine (27-300) mg/dL Ur Random Sodium Nasal Screen MRSA (PCR) [place] detected (Negative) 02/08/18 02/09/18 02/09/18 Range/Units 23:08 04:00 04:00 WBC 10.1 (4.0-11.0) th/mm3 RBC 3.99 L (4.50-5.90) mil/mm3 Hgb 11.2 L (13.0-17.0) gm/dL Hct 34.3 L (39.0-51.0) % MCV 86.1 (80.0-100.0) fL MCH 28.0 (27.0-34.0) pg MCHC 32.5 (32.0-36.0) % RDW 21.3 H (11.6-17.2) % Plt Count 138 L (150-450) th/mm3 MPV 7.6 (7.0-11.0) fL Prelim Diff (Auto) Slide review pending Neut % (Auto) 91.7 H (16.0-70.0) % Lymph % (Auto) 5.0 L (9.0-44.0) % [place] % (Auto) 3.0 (0.0-8.0) % Eos % (Auto) 0.1 (0.0-4.0) % Baso % (Auto) 0.2 (0.0-2.0) % Neut # (Auto) 9.3 H (1.8-7.7) th/mm3 Lymph # (Auto) 0.5 L (1.0-4.8) th/mm3 [place] # (Auto) 0.3 (0.0-0.9) th/mm3 Eos # (Auto) 0.0 (0.0-0.4) th/mm3 Baso # (Auto) 0.0 (0.0-0.2) th/mm3 WBC Differential Manual diff final Seg Neuts % (Manual) 24 (16-70) % Band Neuts % (Manual) 35 H (0-6) % Lymphocytes % (Manual) 9 (9-44) % Monocytes % (Manual) 1 (0-8) % Eosinophils % (Manual) (0-4) % Metamyelocytes % (Man) 30 H (0-1) % Myelocytes % (Man) 1 H (0-0) % Abs Neuts (Manual) 9.1 H (1.8-7.7) th/mm3 Nucleated RBCs/100 WBC (0-0) /100 WBC Differential Comment . Dohle Bodies (None) Platelet Estimate Low L (Normal) Platelet Morphology Normal (Normal) Basophilic Stippling Faint H (None) Ovalocytes 1+ H (None) Keratocytes Occ H (None) PT (9.8-11.6) sec INR Ratio APTT (23.4-31.7) sec Puncture Site Patient Temperature O2 Saturation (90-100) % ABG pH (7.380-7.420) ABG pCO2 (38-42) mmHg ABG pO2 (61-120) mmHg ABG HCO3 (22-26) mmol/L ABG O2 Content (12.0-20.0) Vol % ABG Base Excess (-2-2) mmol/L ABG Methemoglobin (0-2) % Rob Test Hemoglobin (12.0-16.0) G/DL Carboxyhemoglobin (0-4) % O2 Delivery Device Vent Setting Inspired O2 % Critical Value Sodium 140 (136-145) meq/L Potassium 5.6 H (3.5-5.1) meq/L Chloride 103 (98-107) meq/L Carbon Dioxide 23.7 (21.0-32.0) meq/L Anion Gap 13 (5-15) meq/L BUN 50 H (7-18) mg/dL Creatinine 2.11 H (0.60-1.30) mg/dL Estimated GFR 31 L (>89) mL/min POC Glucose 235 H (68-110) mg/dl Random Glucose 182 H (74-106) mg/dL Lactic Acid (0.4-2.0) mmol/L Calcium 6.8 L* (8.5-10.1) mg/dL Prot Corrected Calcium 7.8 L (8.5-10.1) mg/dL Phosphorus 8.6 H (2.5-4.9) mg/dL Magnesium 2.2 (1.5-2.5) mg/dL Total Bilirubin 0.4 (0.2-1.0) mg/dL AST 102 H (15-37) U/L ALT 45 (12-78) U/L Alkaline Phosphatase 52 (45-117) U/L Total Creatine Kinase (39-308) U/L CK-MB (CK-2) (0.5-3.6) ng/mL CK-MB (CK-2) % (0.0-4.0) % Troponin I (0.02-0.05) ng/mL B-Natriuretic Peptide (0-100) pg/mL Total Protein 5.1 L (6.4-8.2) g/dL Albumin 1.5 L (3.4-5.0) g/dL Urine Color (Yellw/Straw) Urine Clarity (Clear) Urine pH (5.0-8.5) Ur Specific [place] (1.002-1.035) Urine Protein (Neg-Trace) mg/dL Urine Glucose (UA) (Negative) mg/dL Urine Ketones (Negative) mg/dL Urine Occult Blood (Negative) Urine Nitrate (Negative) Urine Bilirubin (Negative) Urine Urobilinogen (Less than 2) mg/dL Ur Leukocyte Esterase (Negative) Urine RBC (0-3) /hpf Urine WBC (0-5) /hpf Ur Squamous Epith Cells (0-5) /hpf Amorphous Sediment (None) /hpf Urine Bacteria (None) /hpf Hyaline Casts (0-3) /lpf Granular Casts (None) /lpf Urine Mucus (Occasional) /lpf Micro UA Comment Ur Microscopic Review Urine Culture Comments Ur Random Creatinine (27-300) mg/dL Ur Random Sodium Nasal Screen MRSA (PCR) (Negative) 02/09/18 02/09/18 02/09/18 Range/Units 09:30 11:40 12:15 WBC (4.0-11.0) th/mm3 RBC (4.50-5.90) mil/mm3 Hgb (13.0-17.0) gm/dL Hct (39.0-51.0) % MCV (80.0-100.0) fL MCH (27.0-34.0) pg MCHC (32.0-36.0) % RDW (11.6-17.2) % Plt Count (150-450) th/mm3 MPV (7.0-11.0) fL Prelim Diff (Auto) Neut % (Auto) (16.0-70.0) % Lymph % (Auto) (9.0-44.0) % [place] % (Auto) (0.0-8.0) % Eos % (Auto) (0.0-4.0) % Baso % (Auto) (0.0-2.0) % Neut # (Auto) (1.8-7.7) th/mm3 Lymph # (Auto) (1.0-4.8) th/mm3 [place] # (Auto) (0.0-0.9) th/mm3 Eos # (Auto) (0.0-0.4) th/mm3 Baso # (Auto) (0.0-0.2) th/mm3 WBC Differential Seg Neuts % (Manual) (16-70) % Band Neuts % (Manual) (0-6) % Lymphocytes % (Manual) (9-44) % Monocytes % (Manual) (0-8) % Eosinophils % (Manual) (0-4) % Metamyelocytes % (Man) (0-1) % Myelocytes % (Man) (0-0) % Abs Neuts (Manual) (1.8-7.7) th/mm3 Nucleated RBCs/100 WBC (0-0) /100 WBC Differential Comment Dohle Bodies (None) Platelet Estimate (Normal) Platelet Morphology (Normal) Basophilic Stippling (None) Ovalocytes (None) Keratocytes (None) PT (9.8-11.6) sec INR Ratio APTT (23.4-31.7) sec Puncture Site Patient Temperature O2 Saturation (90-100) % ABG pH (7.380-7.420) ABG pCO2 (38-42) mmHg ABG pO2 (61-120) mmHg ABG HCO3 (22-26) mmol/L ABG O2 Content (12.0-20.0) Vol % ABG Base Excess (-2-2) mmol/L ABG Methemoglobin (0-2) % Rob Test Hemoglobin (12.0-16.0) G/DL Carboxyhemoglobin (0-4) % O2 Delivery Device Vent Setting Inspired O2 % Critical Value Sodium (136-145) meq/L Potassium (3.5-5.1) meq/L Chloride (98-107) meq/L Carbon Dioxide (21.0-32.0) meq/L Anion Gap (5-15) meq/L BUN (7-18) mg/dL Creatinine (0.60-1.30) mg/dL Estimated GFR (>89) mL/min POC Glucose 198 H (68-110) mg/dl Random Glucose (74-106) mg/dL Lactic Acid 1.9 (0.4-2.0) mmol/L Calcium (8.5-10.1) mg/dL Prot Corrected Calcium (8.5-10.1) mg/dL Phosphorus (2.5-4.9) mg/dL Magnesium (1.5-2.5) mg/dL Total Bilirubin (0.2-1.0) mg/dL AST (15-37) U/L ALT (12-78) U/L Alkaline Phosphatase (45-117) U/L Total Creatine Kinase (39-308) U/L CK-MB (CK-2) (0.5-3.6) ng/mL CK-MB (CK-2) % (0.0-4.0) % Troponin I (0.02-0.05) ng/mL B-Natriuretic Peptide (0-100) pg/mL Total Protein (6.4-8.2) g/dL Albumin (3.4-5.0) g/dL Urine Color (Yellw/Straw) Urine Clarity (Clear) Urine pH (5.0-8.5) Ur Specific [place] (1.002-1.035) Urine Protein (Neg-Trace) mg/dL Urine Glucose (UA) (Negative) mg/dL Urine Ketones (Negative) mg/dL Urine Occult Blood (Negative) Urine Nitrate (Negative) Urine Bilirubin (Negative) Urine Urobilinogen (Less than 2) mg/dL Ur Leukocyte Esterase (Negative) Urine RBC (0-3) /hpf Urine WBC (0-5) /hpf Ur Squamous Epith Cells (0-5) /hpf Amorphous Sediment (None) /hpf Urine Bacteria (None) /hpf Hyaline Casts (0-3) /lpf Granular Casts (None) /lpf Urine Mucus (Occasional) /lpf Micro UA Comment Ur Microscopic Review Urine Culture Comments Ur Random Creatinine (27-300) mg/dL Ur Random Sodium Cancelled Nasal Screen MRSA (PCR) (Negative) 02/09/18 02/09/18 02/09/18 Range/Units 12:15 16:15 16:20 WBC (4.0-11.0) th/mm3 RBC (4.50-5.90) mil/mm3 Hgb (13.0-17.0) gm/dL Hct (39.0-51.0) % MCV (80.0-100.0) fL MCH (27.0-34.0) pg MCHC (32.0-36.0) % RDW (11.6-17.2) % Plt Count (150-450) th/mm3 MPV (7.0-11.0) fL Prelim Diff (Auto) Neut % (Auto) (16.0-70.0) % Lymph % (Auto) (9.0-44.0) % [place] % (Auto) (0.0-8.0) % Eos % (Auto) (0.0-4.0) % Baso % (Auto) (0.0-2.0) % Neut # (Auto) (1.8-7.7) th/mm3 Lymph # (Auto) (1.0-4.8) th/mm3 [place] # (Auto) (0.0-0.9) th/mm3 Eos # (Auto) (0.0-0.4) th/mm3 Baso # (Auto) (0.0-0.2) th/mm3 WBC Differential Seg Neuts % (Manual) (16-70) % Band Neuts % (Manual) (0-6) % Lymphocytes % (Manual) (9-44) % Monocytes % (Manual) (0-8) % Eosinophils % (Manual) (0-4) % Metamyelocytes % (Man) (0-1) % Myelocytes % (Man) (0-0) % Abs Neuts (Manual) (1.8-7.7) th/mm3 Nucleated RBCs/100 WBC (0-0) /100 WBC Differential Comment Dohle Bodies (None) Platelet Estimate (Normal) Platelet Morphology (Normal) Basophilic Stippling (None) Ovalocytes (None) Keratocytes (None) PT (9.8-11.6) sec INR Ratio APTT (23.4-31.7) sec Puncture Site Right radial Patient Temperature 98.6 O2 Saturation 90 (90-100) % ABG pH 7.36 L (7.380-7.420) ABG pCO2 39 (38-42) mmHg ABG pO2 64 (61-120) mmHg ABG HCO3 22 (22-26) mmol/L ABG O2 Content 13.4 (12.0-20.0) Vol % ABG Base Excess -3.0 L (-2-2) mmol/L ABG Methemoglobin 1.4 (0-2) % Rob Test Present Hemoglobin 10.5 L (12.0-16.0) G/DL Carboxyhemoglobin 1.1 (0-4) % O2 Delivery Device Ventilator Vent Setting [id number] Inspired O2 50 % Critical Value No Sodium (136-145) meq/L Potassium 4.9 (3.5-5.1) meq/L Chloride (98-107) meq/L Carbon Dioxide (21.0-32.0) meq/L Anion Gap (5-15) meq/L BUN (7-18) mg/dL Creatinine (0.60-1.30) mg/dL Estimated GFR (>89) mL/min POC Glucose (68-110) mg/dl Random Glucose (74-106) mg/dL Lactic Acid (0.4-2.0) mmol/L Calcium (8.5-10.1) mg/dL Prot Corrected Calcium (8.5-10.1) mg/dL Phosphorus (2.5-4.9) mg/dL Magnesium (1.5-2.5) mg/dL Total Bilirubin (0.2-1.0) mg/dL AST (15-37) U/L ALT (12-78) U/L Alkaline Phosphatase (45-117) U/L Total Creatine Kinase (39-308) U/L CK-MB (CK-2) (0.5-3.6) ng/mL CK-MB (CK-2) % (0.0-4.0) % Troponin I (0.02-0.05) ng/mL B-Natriuretic Peptide (0-100) pg/mL Total Protein (6.4-8.2) g/dL Albumin (3.4-5.0) g/dL Urine Color (Yellw/Straw) Urine Clarity (Clear) Urine pH (5.0-8.5) Ur Specific [place] (1.002-1.035) Urine Protein (Neg-Trace) mg/dL Urine Glucose (UA) (Negative) mg/dL Urine Ketones (Negative) mg/dL Urine Occult Blood (Negative) Urine Nitrate (Negative) Urine Bilirubin (Negative) Urine Urobilinogen (Less than 2) mg/dL Ur Leukocyte Esterase (Negative) Urine RBC (0-3) /hpf Urine WBC (0-5) /hpf Ur Squamous Epith Cells (0-5) /hpf Amorphous Sediment (None) /hpf Urine Bacteria (None) /hpf Hyaline Casts (0-3) /lpf Granular Casts (None) /lpf Urine Mucus (Occasional) /lpf Micro UA Comment Ur Microscopic Review Urine Culture Comments Ur Random Creatinine 80 (27-300) mg/dL Ur Random Sodium 13 Nasal Screen MRSA (PCR) (Negative) 02/09/18 02/09/18 Range/Units 17:38 23:33 WBC (4.0-11.0) th/mm3 RBC (4.50-5.90) mil/mm3 Hgb (13.0-17.0) gm/dL Hct (39.0-51.0) % MCV (80.0-100.0) fL MCH (27.0-34.0) pg MCHC (32.0-36.0) % RDW (11.6-17.2) % Plt Count (150-450) th/mm3 MPV (7.0-11.0) fL Prelim Diff (Auto) Neut % (Auto) (16.0-70.0) % Lymph % (Auto) (9.0-44.0) % [place] % (Auto) (0.0-8.0) % Eos % (Auto) (0.0-4.0) % Baso % (Auto) (0.0-2.0) % Neut # (Auto) (1.8-7.7) th/mm3 Lymph # (Auto) (1.0-4.8) th/mm3 [place] # (Auto) (0.0-0.9) th/mm3 Eos # (Auto) (0.0-0.4) th/mm3 Baso # (Auto) (0.0-0.2) th/mm3 WBC Differential Seg Neuts % (Manual) (16-70) % Band Neuts % (Manual) (0-6) % Lymphocytes % (Manual) (9-44) % Monocytes % (Manual) (0-8) % Eosinophils % (Manual) (0-4) % Metamyelocytes % (Man) (0-1) % Myelocytes % (Man) (0-0) % Abs Neuts (Manual) (1.8-7.7) th/mm3 Nucleated RBCs/100 WBC (0-0) /100 WBC Differential Comment Dohle Bodies (None) Platelet Estimate (Normal) Platelet Morphology (Normal) Basophilic Stippling (None) Ovalocytes (None) Keratocytes (None) PT (9.8-11.6) sec INR Ratio APTT (23.4-31.7) sec Puncture Site Patient Temperature O2 Saturation (90-100) % ABG pH (7.380-7.420) ABG pCO2 (38-42) mmHg ABG pO2 (61-120) mmHg ABG HCO3 (22-26) mmol/L ABG O2 Content (12.0-20.0) Vol % ABG Base Excess (-2-2) mmol/L ABG Methemoglobin (0-2) % Rob Test Hemoglobin (12.0-16.0) G/DL Carboxyhemoglobin (0-4) % O2 Delivery Device Vent Setting Inspired O2 % Critical Value Sodium (136-145) meq/L Potassium (3.5-5.1) meq/L Chloride (98-107) meq/L Carbon Dioxide (21.0-32.0) meq/L Anion Gap (5-15) meq/L BUN (7-18) mg/dL Creatinine (0.60-1.30) mg/dL Estimated GFR (>89) mL/min POC Glucose 171 H 198 H (68-110) mg/dl Random Glucose (74-106) mg/dL Lactic Acid (0.4-2.0) mmol/L Calcium (8.5-10.1) mg/dL Prot Corrected Calcium (8.5-10.1) mg/dL Phosphorus (2.5-4.9) mg/dL Magnesium (1.5-2.5) mg/dL Total Bilirubin (0.2-1.0) mg/dL AST (15-37) U/L ALT (12-78) U/L Alkaline Phosphatase (45-117) U/L Total Creatine Kinase (39-308) U/L CK-MB (CK-2) (0.5-3.6) ng/mL CK-MB (CK-2) % (0.0-4.0) % Troponin I (0.02-0.05) ng/mL B-Natriuretic Peptide (0-100) pg/mL Total Protein (6.4-8.2) g/dL Albumin (3.4-5.0) g/dL Urine Color (Yellw/Straw) Urine Clarity (Clear) Urine pH (5.0-8.5) Ur Specific [place] (1.002-1.035) Urine Protein (Neg-Trace) mg/dL Urine Glucose (UA) (Negative) mg/dL Urine Ketones (Negative) mg/dL Urine Occult Blood (Negative) Urine Nitrate (Negative) Urine Bilirubin (Negative) Urine Urobilinogen (Less than 2) mg/dL Ur Leukocyte Esterase (Negative) Urine RBC (0-3) /hpf Urine WBC (0-5) /hpf Ur Squamous Epith Cells (0-5) /hpf Amorphous Sediment (None) /hpf Urine Bacteria (None) /hpf Hyaline Casts (0-3) /lpf Granular Casts (None) /lpf Urine Mucus (Occasional) /lpf Micro UA Comment Ur Microscopic Review Urine Culture Comments Ur Random Creatinine (27-300) mg/dL Ur Random Sodium Nasal Screen MRSA (PCR) (Negative) Imaging Data Radiologist's impression: Chest X-Ray 02/08/18 06:22 CONCLUSION: 1. ETT in good position. NGT in the stomach. 2. Mild airspace disease in the right lower lung zone with patchy diffuse airspace consolidation throughout the left mid to lower lung zones. Differential considerations include developing lobar pneumonia versus aspiration. Head CT 02/08/18 06:43 CONCLUSION: 1. Postsurgical features of right posterior temporal craniotomy and resection of mass in the right temporooccipital low convexities with evidence for recurrent/residual disease similar to previous MRI exam. 2. No increased mass effect, midline shift or definitive hemorrhage. . Chest CTA 02/08/18 07:13 CONCLUSION: 1. No CT evidence for pulmonary artery embolism. 2. Dense left upper lobe airspace consolidation with left lower lobe collapse. Additional patchy nodular airspace opacities in the left upper lobe may be inflammatory/infectious in etiology. Overall findings are concerning for severe aspiration. 3. Multiple right upper lobe nodules measuring up to 1 cm. Although these may also be inflammatory or infectious in etiology given findings in the left lung, differential considerations include metastatic disease in this patient with history of brain mass. 4. Subcentimeter mediastinal nodes, likely reactive. Abdomen/Bladder Ultrasound 02/09/18 00:00 CONCLUSION: 1. Left renal cysts. ECG Data EKG Prior to Arrival: No Attestation: I personally reviewed and interpreted this ECG as follows: (EKG: Sinus tachycardia with frequent PACs no acute ST elevation injury pattern noted) Discharge Plan Discharge Disposition Patient Disposition: 30 Still Patient Discharge Condition Condition: Critical Discharge Details Diagnosis: Sepsis associated hypotension, Brain tumor, COPD (chronic obstructive pulmonary disease), Acute respiratory failure with hypoxemia Physicians Team ED Provider: Ama Ojeda Primary Care Provider: Primary Care Verito Pinzon Attending Provider: Pawan Salazar Other Providers: Victoriano Bustos ; Eileen Harrison ; Santi Hercules ; Neftaly Montes V ; Pola Fish V Status ED Status: Left Department Discharge Information Discharge Date/Time: 02/08/18 11:10
[2018-02-08] MEDS ORDERED: Propofol 1000 mg/100 ml Inj 1,000 MG/100 ML BOTTLE ONE (06:45)
[2018-02-08 06:46] LABS: ABG PCO2 45 mmHg (38-42); ABG PO2 58 mmHg (61-120)
[2018-02-08] MEDS ORDERED: Succinylcholine Inj 200 MG/10 ML Vial ONE (06:47)
[2018-02-08 06:56] LABS: Baso % (Auto) 0.2 % (0.0-2.0); Eos % (Auto) 0.2 % (0.0-4.0); Hematocrit 38.6 % (39.0-51.0); Hemoglobin 12.6 gm/dL (13.0-17.0); Lymph % (Auto) 18.6 % (9.0-44.0); Mean Corpuscular HGB Conc 32.8 % (32.0-36.0); Mean Corpuscular Hemoglobin 28.5 pg (27.0-34.0); Mean Corpuscular Volume 86.8 fL (80.0-100.0); Mean Platelet Volume 7.7 fL (7.0-11.0); Mono # (Auto) 0.1 th/mm3 (0.0-0.9); Mono % (Auto) 2.8 % (0.0-8.0); Neut % (Auto) 78.2 % (16.0-70.0); Platelet Count 139 th/mm3 (150-450); Red Blood Count 4.45 mil/mm3 (4.50-5.90); Red Cell Distribution Width 21.1 % (11.6-17.2); White Blood Count 5.1 th/mm3 (4.0-11.0)
--- NOTE | 2018-02-08 06:57 | XR ---
EXAM DATE: 02/08/2018 6:51 AM EST AGE/SEX: 77 years / Male INDICATIONS: Shortness of breath. ET tube placement. CLINICAL DATA: This is the patient's initial encounter. Patient reports that signs and symptoms have been present for 1 day and indicates a pain score of Nonresponsive. MEDICAL/SURGICAL HISTORY: . Carcinoma, lung. Chronic obstructive pulmonary disease. Anemia. Bra in mass. . Port Placement. COMPARISON: . FINDINGS: ETT is 2 cm above the chio. NGT is in the stomach. Right IJ [id number] in good position. Diffuse patchy airspace consolidation throughout the left mid to lower lung zones. Mild airspace disease in the right lower lung zone. Cardiomediastinal contours are within normal limits. Bony thorax is intact . CONCLUSION: 1. ETT in good position. NGT in the stomach. 2. Mild airspace disease in the right lower lung zone with patchy diffuse airspace consolidation thr oughout the left mid to lower lung zones. Differential considerations include developing lobar pneumo chucho versus aspiration. Electronically signed by: Rey Jesus MD 02/08/2018 6:55 AM EST
[2018-02-08 07:05] LABS: Activated Partial Thrombo Time 29.4 sec (23.4-31.7); Prothrombin Time 10.6 sec (9.8-11.6)
[2018-02-08 07:15] LABS: Alanine Aminotransferase 23 U/L (12-78); Anion Gap 11 meq/L (5-15); Aspartate Aminotransferase 29 U/L (15-37); Blood Urea Nitrogen 37 mg/dL (7-18); Calcium 7.6 mg/dL (8.5-10.1); Carbon Dioxide 21.7 meq/L (21.0-32.0); Chloride 107 meq/L (98-107); Glomerular Filtration Rate 51 mL/min (>89); Glucose,Random 75 mg/dL (74-106); Potassium 4.4 meq/L (3.5-5.1); Sodium 140 meq/L (136-145)
[2018-02-08 07:19] LABS: Alkaline Phosphatase 45 U/L (45-117); Creatine Kinase 636 U/L (39-308); Total Protein 5.4 g/dL (6.4-8.2)
[2018-02-08] MEDS ORDERED: Midazolam Inj 5 MG/ML 1 ML Vial ONE (07:27)
[2018-02-08] MEDS ORDERED: Midazolam 50 MG/50 ML Inj 50 MG/50 ML BAG IV.CONT PRN (07:29)
[2018-02-08 07:32] LABS: CKMB Percent 1.1 % (0.0-4.0); Creatine Kinase MB 6.9 ng/mL (0.5-3.6)
[2018-02-08] MEDS ORDERED: Bisacodyl 10 MG Supp RECTAL PRN (07:33)
[2018-02-08] MEDS ORDERED: Vancomycin Consult Pharmacy OTHER PRN (07:36)
[2018-02-08] MEDS: fentaNYL 10 mcg/mL Premix Drip 2,500 MCG/250 ML BAG IV.SIG PRN ×2 (07:37→08:51)
[2018-02-08] MEDS ORDERED: Dextrose 50% in Water 50 ML Vial IV.PUSH PRN (07:37)
[2018-02-08] MEDS ORDERED: Midazolam Inj 5 MG/ML 1 ML Vial IV.PUSH ONE (07:39)
[2018-02-08 07:44] LABS: Amorphous Sediment,Urine Occasional /hpf; Bacteria,Urine Few /hpf; Bilirubin,Urine Negative (Negative); Clarity,Urine Cloudy (Clear); Color,Urine Amber (Yellw/Straw); Glucose,Urine (UA) Negative (Negative); Hyaline Casts,Urine 7 /lpf (0-3); Leukocyte Esterase,Urine Negative (Negative); Mucus,Urine Few /lpf (Occasional); Nitrite,Urine Negative (Negative); Specific Gravity,Urine 1.023 (1.002-1.035); Squamous Epithelial Cell,Urine 1 /hpf (0-5); Urobilinogen,Urine 4 or Greater mg/dL (Less than 2)
[2018-02-08] MEDS ORDERED: Sod Chloride 0.9% Inj 1,000 ML IV.CONT SCH (07:45)
[2018-02-08] MEDS: Sod Chloride 0.9% Inj 1,000 ML IV.SIG SCH ×2 (07:50→10:17)
[2018-02-08] MEDS ORDERED: MethylPREDNISolone Sod Succinate Inj 40 MG/ML Vial IV.PUSH SCH (08:00)
--- NOTE | 2018-02-08 08:39 | CT ---
EXAM DATE: 02/08/2018 8:08 AM EST AGE/SEX: 77 years / Male INDICATIONS: Intracerebral hemorrhage. Brain mass resection two months ago. CLINICAL DATA: This is the patient's initial encounter. Patient reports that signs and symptoms have been present for 1 day and indicates a pain score of Nonresponsive. MEDICAL/SURGICAL HISTORY: Carcinoma, lung. Hypertension. Chronic obstructive pulmonary disease. Brain mass. Cholecystectomy. Mass resection. RADIATION DOSE: 65.26 CTDI (mGy) COMPARISON: [facility], MR BRAIN W AND W/O CONTRAST, 01/23/2018. . TECHNIQUE: CT of the head without contrast. Using automated exposure control and adjustment of the mA and/or kV according to patient size, radiation dose was kept as low as reasonably achievable to ob tain optimal diagnostic quality images. DICOM format image data is available electronically for revi ew and comparison. FINDINGS: Postsurgical features of right posterior temporal craniotomy with focal region of encephalomalacia in the right temporal occipital lobe convexities. There is ill-defined hyperdensities surrounding the s urgical bed consistent with pattern of recurrence/residual disease on prior MRI exam. Overall there i s no significant increased mass effect, midline shift or definitive hemorrhage. Remainder of the examination is stable including extensive severe periventricular white matter hypode nsities. Ventricles are midline and normal in size given degree of atrophy. Brainstem and cerebellum are intact. CONCLUSION: 1. Postsurgical features of right posterior temporal craniotomy and resection of mass in the right t emporooccipital low convexities with evidence for recurrent/residual disease similar to previous MRI exam. 2. No increased mass effect, midline shift or definitive hemorrhage. . Electronically signed by: Rey Jesus MD 02/08/2018 8:37 AM EST
--- NOTE | 2018-02-08 08:43 | CT ---
EXAM DATE: 02/08/2018 8:21 AM EST AGE/SEX: 77 years / Male INDICATIONS: Hypoxia. CLINICAL DATA: This is the patient's initial encounter. Patient reports that signs and symptoms have been present for 1 day and indicates a pain score of Nonresponsive. MEDICAL/SURGICAL HISTORY: Chronic obstructive pulmonary disease. Carcinoma, lung. Brain mass. Ch olecystectomy. Brain tumor resection. RADIATION DOSE: 24.89 CTDI (mGy) COMPARISON: [facility], CHEST 1V SINGLE AP, 02/08/2018. . TECHNIQUE: Volumetric scanning was performed using a multi-row detector CT scanner during bolus infu marquise of 73 ml Omnipaque 350 (iohexol) nonionic water-soluble contrast as a single exam dose. The irwin a was post processed with a variety of visualization algorithms including full volume maximum intensi ty projection and sliding thin slab reformation. Using automated exposure control and adjustment of the mA and/or kV according to patient size, radiation dose was kept as low as reasonably achievable t o obtain optimal diagnostic quality images. DICOM format image data is available electronically for review and comparison. FINDINGS: Pulmonary Arteries: No filling defects are seen in the pulmonary arteries through the segmental vess els. The main pulmonary artery is normal in diameter. Lung: There is dense airspace consolidation in the left upper lobe with left lower lobe collapse. Th ere are also patchy nearly nodular airspace opacities in the anterior left upper lobe. There are mult iple right upper lobe nodules measuring up to 1 cm. Mild airspace consolidation at the right lung bas e likely reflects compressive atelectasis. Pleura: Small right pleural effusion. Mediastinum: Heart is unremarkable without pericardial effusion. Subcentimeter mediastinal nodes do not meet CT size criteria. Osseous Structures: No abnormal focal lytic or blastic bony lesions. Other: Visulaized upper abdomen is unremarkable. CONCLUSION: 1. No CT evidence for pulmonary artery embolism. 2. Dense left upper lobe airspace consolidation with left lower lobe collapse. Additional patchy nod ular airspace opacities in the left upper lobe may be inflammatory/infectious in etiology. Overall fi ndings are concerning for severe aspiration. 3. Multiple right upper lobe nodules measuring up to 1 cm. Although these may also be inflammatory o r infectious in etiology given findings in the left lung, differential considerations include metasta tic disease in this patient with history of brain mass. 4. Subcentimeter mediastinal nodes, likely reactive. Electronically signed by: Rey Jesus MD 02/08/2018 8:42 AM EST
[2018-02-08] MEDS ORDERED: DOPamine 800 MG/500 ML Premix 800 MG/500 ML PLAST..BAG IV.CONT PRN (09:46)
[2018-02-08] MEDS: Azithromycin Inj 500 MG in Sodium Chlor 0.9% Inj 250 ML IV.SIG SCH (09:59)
[2018-02-08] MEDS ORDERED: DOPamine Inj 800 MG in Dextrose 5% in Water Inj 480 ML IV.CONT PRN ×2 (10:15)
[2018-02-08] MEDS: Pantoprazole Inj 40 MG Vial IV.PUSH SCH (10:19)
--- NOTE | 2018-02-08 11:18 | ECHRPT ---
Indication: Shortness of breath CONCLUSIONS The left ventricular systolic function is low normal with an estimated ejection fraction in the rang e of 50- 55%. Wall thickness is measured at the upper limits of normal. Normal left ventricular size. There is moderate tricuspid regurgitation. The estimated pulmonary arterial pressure is 47.5 mmHg. BP: / HR: Rhythm: Sinus MEASUREMENTS (Male / Female) Normal Values Technical Quality:Fair 2D ECHO LV Diastolic Diameter PLAX 4.0 cm 4.2 - 5.9 / 3.9 - 5.3 cm LV Systolic Diameter PLAX 3.4 cm IVS Diastolic Thickness 1.0 cm 0.6 - 1.0 / 0.6 - 0.9 cm LVPW Diastolic Thickness 1.0 cm 0.6 - 1.0 / 0.6 - 0.9 cm LV Relative Wall Thickness 0.5 LVOT Diameter 2.2 cm M-MODE Aortic Root Diameter MM 3.2 cm LA Systolic Diameter MM 3.9 cm LA Ao Ratio MM 1.2 AV Cusp Separation MM 1.7 cm DOPPLER AV Peak Velocity 156.0 cm/s AV Peak Gradient 9.7 mmHg LVOT Peak Velocity 133.0 cm/s LVOT Peak Gradient 7.1 mmHg AV Area Cont Eq pk 3.2 cm Mitral E Point Velocity 73.1 cm/s Mitral A Point Velocity 77.0 cm/s Mitral E to A Ratio 0.9 LV E' Lateral Velocity 5.8 cm/s Mitral E to LV E' Lateral Ratio 12.7 LV E' Septal Velocity 3.8 cm/s Mitral E to LV E' Septal Ratio 19.2 TR Peak Velocity 306.0 cm/s TR Peak Gradient 37.5 mmHg Right Atrial Pressure 10.0 mmHg Pulmonary Artery Systolic Pressu 47.5 mmHg Right Ventricular Systolic Press 47.5 mmHg PV Peak Velocity 127.0 cm/s PV Peak Gradient 6.5 mmHg FINDINGS LEFT VENTRICLE The left ventricular systolic function is low normal with an estimated ejection fraction in the rang e of 50- 55%. Wall thickness is measured at the upper limits of normal. Normal left ventricular size. RIGHT VENTRICLE Normal right ventricular size and systolic function. LEFT ATRIUM The left atrial size is normal. RIGHT ATRIUM The right atrial size is normal. ATRIAL SEPTUM Normal atrial septal thickness without atrial level shunting by limited color doppler interrogation. AORTA The aortic root and proximal ascending aorta are normal in size on limited imaging. MITRAL VALVE Structurally normal mitral valve. No mitral valve stenosis or regurgitation. AORTIC VALVE Trileaflet aortic valve. No aortic valve stenosis or regurgitation. TRICUSPID VALVE There is moderate tricuspid regurgitation. The estimated pulmonary arterial pressure is 47.5 mmHg. PULMONARY VALVE No pulmonary valve regurgitation or stenosis. VESSELS The inferior vena cava is normal in size. PERICARDIUM No pericardial effusion. Kumar Donato MD, FACC (Electronically Signed) Final Date:08 February 2018 11:17
[2018-02-08 12:04] LABS: ABG Base Excess -8.5 mmol/L (-2-2); ABG PCO2 38 mmHg (38-42); ABG PO2 72 mmHG (61-120)
[2018-02-08] MEDS ORDERED: Phenylephrine Inj 40 MG in Dextrose 5% in Water Inj 496 ML IV.CONT PRN ×2 (12:13)
[2018-02-08] MEDS: Insulin NovoLIN Regular Correctional Sugar Inj SQ SCH ×3 (13:01→23:12)
[2018-02-08 13:34] LABS: Baso % (Auto) 0.1 % (0.0-2.0); Hematocrit 36.3 % (39.0-51.0); Hemoglobin 11.8 gm/dL (13.0-17.0); Lymph # (Auto) 0.9 th/mm3 (1.0-4.8); Lymph % (Auto) 10.7 % (9.0-44.0); Mean Corpuscular HGB Conc 32.5 % (32.0-36.0); Mean Corpuscular Hemoglobin 28.5 pg (27.0-34.0); Mean Corpuscular Volume 87.7 fL (80.0-100.0); Mean Platelet Volume 7.9 fL (7.0-11.0); Mono # (Auto) 0.3 th/mm3 (0.0-0.9); Mono % (Auto) 3.2 % (0.0-8.0); Neut # (Auto) 7.4 th/mm3 (1.8-7.7); Platelet Count 163 th/mm3 (150-450); Red Blood Count 4.14 mil/mm3 (4.50-5.90); Red Cell Distribution Width 21.7 % (11.6-17.2); White Blood Count 8.6 th/mm3 (4.0-11.0)
--- NOTE | 2018-02-08 13:49 | MH ---
cc: Pawan Salazar MD DATE OF ADMISSION: 02/08/2018 HISTORY OF PRESENT ILLNESS: The patient is a 77-year-old male with past medical history of small cell lung cancer, large B cell lymphoma, COPD, who presented to [facility] ED via EMS for hypoxemia and altered mental status. The patient reportedly had O2 saturation in the 70s on 2 liters nasal cannula and also was hypotensive. He was intubated and placed on mechanical ventilation. Upon arrival to the ED, he had a low-grade fever with temperature of 100.2 and initial blood pressure of 110/74. Then, the patient became hypotensive with a systolic blood pressure in the 70s. His laboratory data showed mild acute kidney injury with creatinine level 1.36 and lactic acidosis with lactic acid level of 4.6. Initial ABG post-intubation showed a pH of 7.30, CO2 45, pO2 of 58, bicarbonate of 21, and sat 84% on assist control ventilation with rate of 16, tidal volume 550, PEEP of 5 and 100% FiO2. A repeat ABG was performed at 11:52 which showed a pH of 7.27 with CO2 38, PaO2 of 72 and a bicarbonate of 17. In the ER, he was given approximately 4 liters of crystalloids along with vancomycin and Zosyn. Due to altered mental status, CT scan of the brain was obtained which showed postsurgical features of right posterior temporal craniotomy and resection of a mass in the right temporal occipital area. No evidence of mass effect, midline shift, or definite hemorrhage. He also underwent CT angiogram of the chest which showed no evidence of pulmonary embolism; however, it showed dense left upper lobe airspace consolidation patchy nodular airspace opacities in left upper lobe and multiple right upper lobe nodules. He was started on Levophed. The patient underwent right craniotomy with resection of tumor as stated above with biopsy results consistent with large B cell lymphoma. He is being followed by Dr. Brand from Oncology. PAST MEDICAL HISTORY: Significant for small cell lung cancer, large B cell lymphoma, coronary artery disease, dyslipidemia, peripheral neuropathy, history of seizures. PAST SURGICAL HISTORY: Previous right craniotomy with mass resection, previous cholecystectomy, previous laminectomy, previous Ptyuvv-F-Fozu placement. ALLERGIES: NO KNOWN DRUG ALLERGIES. FAMILY HISTORY: Noncontributing to present illness. SOCIAL HISTORY: Smoker, nondrinker. CURRENT MEDICATIONS: Include: 1. Folic acid. 2. Ferrous sulfate. 3. Decadron. 4. Symbicort. 3. Amlodipine. 4. Potassium. 5. Lisinopril. 6. Zinc sulfate. 7. Pravastatin. REVIEW OF SYSTEMS: As per HPI. Rest of review of systems unobtainable as the patient is intubated. PHYSICAL EXAMINATION: GENERAL: A 77-year-old male, intubated and on full mechanical ventilation, critically ill on Levophed. VITAL SIGNS: Temperature 100.2, pulse of 87, respiratory rate is 16-21, blood pressure 97/50 with a MAP of 72, pulse of 104. Vent setting: Assist control ventilation with a rate of 16, tidal volume 500, PEEP of 10 and 100% FiO2. HEENT: Atraumatic, normocephalic. Pupils and equal and reactive to light and accommodation. Extraocular muscles intact. Conjunctivae pink. Nonicteric sclerae. Oral mucosa within normal. NECK: Supple. No JVD, adenopathy, or thyromegaly. Trachea in the midline. Orally intubated. CARDIOVASCULAR: Tachycardic. Normal S1, S2. No murmurs, rubs or gallops noted. PULMONARY: Bilateral equal air entry with few coarse breath sounds. ABDOMEN: Soft, obese, nontender. No distention. Positive bowel sounds. EXTREMITIES: No cyanosis, clubbing or edema. NEUROLOGIC: Intubated and sedated. LABORATORY DATA: WBC 5.1, hemoglobin 12.6, hematocrit 38, and platelet count of 139. Sodium 140, potassium 4.4, chloride 107, CO2 of 21, BUN 37, creatinine 1.36, glucose 75. Lactic acid 5.0, from 4.6. BNP 223. Total CK 636, total bilirubin 0.4, AST 29, ALT 23. Troponin 0.20 with a CK-MB 6.9, albumin 2.0. RADIOGRAPHIC STUDIES: CT brain showed postsurgical features of right posterior temporal craniotomy and resection of mass and no evidence of mass effect, midline shift, or definite hemorrhage. CTA of the chest showed no evidence of PE. Dense left upper lobe airspace consolidation, patchy nodular airspace opacities, left upper lobe. Multiple right upper lobe nodules. IMPRESSION: 1. Ventilator-dependent respiratory failure. 2. Septic shock. 3. Left-sided pneumonia. 4. Right upper lobe nodules, Differential diagnosis, infectious/inflammatory process versus metastatic disease. 5. Lactic acidosis. 6. Acute kidney injury. 7. Mild elevation in troponin. 8. Small cell lung cancer. 9. 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 10. Chronic obstructive pulmonary disease. 11. History of coronary artery disease. RECOMMENDATIONS: 1. Continue Diprivan infusion for sedation if needed. Daily sedation vacation. A CT scan of the brain reviewed. 2. Continue with vent support and maintain sats above 92%. 3. Bronchodilators in the form of DuoNeb every 6 hours and every 2 hours p.r.n. 4. Stress dose steroids, hydrocortisone 100 mg IV every 8 hours. 5. Might need a bronchoscopy once his oxygenation requirements are better. 6. Continue with Levophed. Monitor heart rate, blood pressure, and maintain MAP greater than 65 mmHg. 7. Monitor CKs with troponins and will obtain 2-D echo to evaluate LV function to rule out regional wall motion abnormalities. 8. Patient was given approximately 4 liters of crystalloids. We will give an additional 1 liter of NS and placed on maintenance fluids, NS at 100 mL an hour. 9. Monitor renal function, I's and O's and electrolyte replacement as needed. Repeat BMP and continue with IV fluids as stated above. 10. Keep n.p.o. for now. Place on Protonix 40 mg IV daily for gastrointestinal prophylaxis. 11. Continue with broad spectrum antibiotics in the form of vancomycin, Zosyn and azithromycin. Monitor for signs of infection, which include fever and WBC. We will obtain a sputum culture with Gram stain. Followup on blood and urine culture. His strep pneumonia legionella urinary antigen is negative. Place on sliding scale insulin with Accu-Cheks to maintain euglycemia. 12. Monitor CBC and will consult Dr. Brand from Oncology as the patient is known to him. 13. Consult palliative care to assist with goals of care. 14. GI prophylaxis with Protonix 40 mg daily and DVT prophylaxis with SCDs. We will hold off on chemical DVT prophylaxis given previous right craniotomy with brain mass resection. 15. IV access. The patient has [id number] placement and right femoral central line was placed by the ED physician. 16. The patient is critically ill with respiratory failure, septic shock, pneumonia, acute kidney injury and lactic acidemia. Critical care time: 50 minutes excluding procedures. MD Alanna Crum , 01:04 PM , 01:26 PM
[2018-02-08 14:02] LABS: Albumin 1.9 g/dL (3.4-5.0); Calcium 7.2 mg/dL (8.5-10.1); Carbon Dioxide 19.3 meq/L (21.0-32.0); Potassium 5.4 meq/L (3.5-5.1); Total Protein 5.4 g/dL (6.4-8.2); Troponin I 0.38 ng/mL (0.02-0.05)
[2018-02-08 14:09] LABS: Dohle Bodies Present; Eosinophils 1 % (0-4); Lymphocytes 5 % (9-44); Metamyelocytes 1 % (0-1); Monocytes 1 % (0-8); Myelocytes 1 % (0-0); Platelet Estimate Normal (Normal); Platelet Morphology Normal (Normal); Tallied Nucleated RBC 1 (0-0)
[2018-02-08] MEDS: Hydrocortisone Sod Succinate 100 MG Vial IV.PUSH SCH ×2 (14:37→21:51)
[2018-02-08] MEDS: Piperacil/Tazo 4.5 GM Premix 4.5 GM/100 ML BAG IV.SIG SCH ×2 (14:38→20:24)
--- NOTE | 2018-02-08 14:56 | P.CONPAL ---
Consult Service: Palliative Care Requesting Physician: Nancy Pittman Reason for Consult: a. To assist with evaluation and management of symptoms including: pain, dyspnea b. To assist medical decision maker(s) with: better understanding of current medical conditions; weighing benefits/burdens of medical treatment options; making medical treatment decisions Primary Care Provider: No Primary Care Physician History of Present Illness History of Present Illness: Mr. Yuan is a 77 year old male with a history of non-small cell lung cancer, large B-cell lymphoma and COPD. Patient follows Dr. Brand, oncology. He presented to [facility] ED on 02/08/18 via EMS in acute respiratory distress after being found hypoxemic in the correction. Patient was hypotensive in route to the hospital. He was placed on a nonrebreather, IV access was obtained and the patient received 1 L IV bolus of normal saline. Diagnostic data: * Vital signs: Pulse 134, respirations 29, BP 110/74, oxygen saturation 96% on nonrebreather, oral temperature 98.7 * WBC: 5.1, hemoglobin 12.6, hematocrit 38.6, platelets 139, neutrophils 78.2% * PT: 10.6, INR 1.0, APTT 29.4 * Sodium: 140, potassium 4.4, chloride 107, carbon dioxide 21.7, glucose 75, calcium 7.6, magnesium 2.0 * BUN: 37, creatinine 1.36, GFR 51 * Lactic acid: 4.6 * Total bilirubin: 0.4, AST 29, ALT 23, alkaline phosphatase 45 * Total creatine kinase: 636 * CK-MB: 6.9 * Troponin: 0.20 * BNP: 223 * Total protein: 5.4, albumin 2.0 * Urinalysis consistent with infection; urine culture pending * Blood cultures pending * Echocardiogram showing left ventricular systolic function is low normal with an estimated EF 50-55%. * Chest x-ray revealed mild airspace disease in the right lower lung zone with patchy diffuse airspace consolidation throughout the left mid to lower lung zones. Differential considerations include developing lobar pneumonia versus aspiration. * CT head showed postsurgical features of the right posterior temporal craniotomy and resection of mass in the right temporo occipital lobe convexities with evidence of recurrent/residual disease similar to previous MRI exam. * CTA chest showed no evidence of PE. Dense left upper lobe airspace consolidation with left lower lobe collapse. Additional patchy nodular airspace opacities in the left upper lobe may be inflammatory/infectious in etiology. Overall findings are concerning for severe aspiration. Multiple right lower lobe nodules measuring up to 1 cm although these may be inflammatory or infectious in etiology given findings in the left lung, differential considerations include metastatic disease in this patient with a history of brain mass. Subcentimeter mediastinal nodes, likely reactive. * EKG: Sinus tachycardia with frequent PACs; no acute ST elevation injury pattern noted. Patient was admitted to critical care services with respiratory failure, septic shock, pneumonia, acute kidney injury and lactic acidemia. He is sedated and intubated, requiring mechanical ventilator support as well as vasopressor support. Palliative Care was consulted to assist with symptom management and to discuss with the family the benefits and burdens of his current illnesses and the options regarding future care. Function/Cognitive Trajectory: Patient is a resident at [facility]. Review of Systems unobtainable due to endotracheal tube PMFSH - History History Provided By: Patient - Medical History Medical History: Medical History (Last Updated 02/08/18 @ 14:59 by JC Glass) Hypertension (Acute) Major depressive disorder (Acute) Dementia (Acute) Restless leg syndrome (Acute) COPD (chronic obstructive pulmonary disease) (Acute) Hyperlipidemia (Acute) Frequent falls (Acute) Malignant neoplasm of upper lobe of lung (Acute) Anemia (Acute) - Surgical History Surgical History: Surgical History (Last Reviewed 02/08/18 @ 06:45 by Ama Ojeda MD) History of laminectomy Hx of cholecystectomy Hx of foot surgery - Family History Family History: Family History (Last Updated 02/08/18 @ 14:58 by JC Glass) Other Family history of [place] (myocardial infarction) - Social History I have reviewed the patient's Social History: Yes - Tobacco History Second Hand Smoke Exposure: No Smoking Status: Former smoker (Quit smoking approximately 10 years ago.) Tobacco Type: Cigarettes - Alcohol History How Often Do You Have a Drink Containing Alcohol: Never - Substance Use History Substance History: No History of Abuse - Travel History Recent Travel in the [facility] Within the Last 8 Weeks: No Recent Travel Out of the Country Within the Last 8 Weeks: No - Immunization History Tetanus Immunization: Unsure Medications and Allergies Active Medications: Active Medications Al Hydroxide/Mg Hydroxide (Milk Of Magnesia Liq) 30 ml PO Q12H PRN PRN Reason: Mild Constipation Albuterol (Duoneb Neb (Radha)) 1 ampul NEB Q4HR NEB RADHA Last Admin: 02/08/18 11:38 Dose: 1 ampul Albuterol (Duoneb Neb (Prn)) 1 ampul NEB Q2HR NEB PRN PRN Reason: WHEEZING Last Admin: 02/08/18 11:39 Dose: 1 ampul Bisacodyl (Dulcolax Supp) 10 mg RECTAL DAILY PRN PRN Reason: SEVERE CONSITIPATION Chlorhexidine Gluconate (Chlorhexidine 2% Cloth) 3 pack TOPICAL DAILY@0400 RADHA Stop: 02/14/18 03:59 Chlorhexidine Gluconate (Chlorhexidine 2% Cloth) 3 pack TOPICAL DAILY@0400 PRN PRN Reason: Extra cloth needed Stop: 02/14/18 03:59 Dextrose (D50w Vial) 50 ml IV.PUSH UNSCH PRN PRN Reason: PER HYPOGLYCEMIA PROTOCOL Glucagon (Glucagon Inj) 1 mg OTHER PRN PRN PRN Reason: for Hypoglycemia Protocol Hydrocortisone Sodium Succinate (Solucortef Inj) 100 mg IV.PUSH Q8HR [facility] Last Admin: 02/08/18 14:37 Dose: 100 mg Propofol (Diprivan 1000 Mg/100 Ml Inj) 1,000 mg in 100 mls @ 2.585 mls/hr IV.CONT TITRATE PRN; Protocol PRN Reason: Per Protocol Norepinephrine Bitartrate (Levophed-Dextrose 4 Mg/250 Ml Drip) 4 mg in 250 mls @ 7.5 mls/hr IV.SIG TITRATE PRN; Protocol PRN Reason: Per Protocol Last Admin: 02/08/18 14:11 Dose: 12 mcg/min, 45 mls/hr Midazolam HCl (Versed Inj) 50 mg in 50 mls @ 2 mls/hr IV.CONT TITRATE PRN; Protocol PRN Reason: Per Protocol Last Titration: 02/08/18 08:54 Dose: 5 mg/hr, 5 mls/hr Fentanyl (Fentanyl 10 Mcg/Ml Premix Drip) 2,500 mcg in 250 mls @ 5 mls/hr IV.SIG TITRATE PRN; Protocol PRN Reason: Per Protocol Last Titration: 02/08/18 10:10 Dose: 0 mcg/hr, 0 mls/hr Azithromycin 500 mg/ Sodium (Chloride) 250 mls @ 250 mls/hr IV.SIG Q24H RADHA Last Admin: 02/08/18 09:59 Dose: 250 mls/hr Piperacillin/Tazobactam/Dextrose (Zosyn 4.5 Gm Premix) 4.5 gm in 100 mls @ 200 mls/hr IV.SIG Q6H RADHA Last Admin: 02/08/18 14:38 Dose: 200 mls/hr Sodium Chloride (Ns Inj) 1,000 mls @ 100 mls/hr IV.CONT .Q10H RADHA Last Admin: 02/08/18 08:48 Dose: 75 mls/hr Dopamine HCl 800 mg/ Dextrose 500 mls @ 9.69 mls/hr IV.CONT TITRATE PRN; Protocol PRN Reason: PER PROTOCOL Vancomycin HCl 1,250 mg/ (Sodium Chloride) 262.5 mls @ 262.5 mls/hr IV.SIG Q24H RADHA Phenylephrine HCl 40 mg/ (Dextrose) 500 mls @ 30 mls/hr IV.CONT TITRATE PRN; Protocol PRN Reason: Per Protocol Insulin Human Regular (Novolin R Correctional Sugar Inj) 0 units SQ Q6HR RADHA; Protocol Last Admin: 02/08/18 13:01 Dose: Not Given Lactulose (Lactulose Liq) 30 ml PO DAILY PRN PRN Reason: SEVERE CONSITIPATION Miscellaneous Information ([facility] Ordered Lab Info) 0 each OTHER ONCE ONE Stop: 02/11/18 03:46 Pantoprazole Sodium (Protonix Inj) 40 mg IV.PUSH DAILY [facility] Last Admin: 02/08/18 10:19 Dose: 40 mg Pharmacy Profile Note (Vancomycin Consult Pharmacy) 1 each OTHER UNSCH PRN PRN Reason: Pharmacy to dose Sennosides (Senokot) 17.2 mg PO Q12H PRN PRN Reason: Moderate Constipation Terbutaline Sulfate (Brethine Inj) 1 mg SQ UNSCH PRN PRN Reason: For Extravasation Terbutaline Sulfate (Brethine Inj) 1 mg SQ ONCE PRN PRN Reason: Extravasation Terbutaline Sulfate (Brethine Inj) 1 mg SQ UNSCH PRN PRN Reason: For Extravasation Allergies Allergy/AdvReac Type Severity Reaction Status Date / Time No Known Allergies Allergy Verified 02/08/18 06:15 Home Medications Medication Instructions Recorded Confirmed Type amlodipine 5 mg PO DAILY 12/11/17 02/08/18 History budesonide-formoterol [Symbicort] 2 puff INHALATION BID 12/11/17 02/08/18 History calcium carbonate-vitamin D3 1 tab PO DAILY 12/11/17 02/08/18 History [Calcium 600 + D(3)] ferrous sulfate [Iron (ferrous 325 mg PO BID 12/11/17 02/08/18 History sulfate)] folic acid 0.4 mg PO DAILY 12/11/17 02/08/18 History gabapentin 300 mg PO BID 12/11/17 02/08/18 History ipratropium-albuterol 3 ml INHALATION Q8H 12/11/17 02/08/18 History olanzapine 5 mg PO DAILY 12/11/17 02/08/18 History pediatric cqzpnziq-[id number] 1 tab PO DAILY 12/11/17 02/08/18 History [Multi-Vitamins with Iron] potassium chloride 10 meq PO DAILY 12/11/17 02/08/18 History pravastatin 20 mg PO DAILY 12/11/17 02/08/18 History sertraline 100 mg PO DAILY 12/11/17 02/08/18 History zinc sulfate 220 mg PO DAILY 12/11/17 02/08/18 History Advance Directives Healthcare Surrogate: Yes Health Care Surrogate Name and Number: Frederick Yuan Power of Foundry Supervisor: Yes Power of Foundry Supervisor Name: Frederick Yuan Power of Foundry Supervisor Relationship to Patient: Spouse Family/friends goals: Aggressive up to the point of cardiopulmonary resuscitation Ethical and Legal Issues: No known ethical or legal issues impacting care at this time. Physical Exam Vital Signs: Vital Signs - 24 hr 02/08/18 06:20 02/08/18 06:38 02/08/18 06:58 Temperature 98.7 F Pulse Rate 134 H Respiratory Rate 30 H Blood Pressure 110/74 Pulse Oximetry 96 96 84 L 02/08/18 07:25 02/08/18 07:35 02/08/18 07:50 Temperature Pulse Rate 88 Respiratory Rate 20 20 16 Blood Pressure Pulse Oximetry 92 L 92 L 02/08/18 09:39 02/08/18 10:03 02/08/18 10:36 Temperature 100.2 F H Pulse Rate 91 H 89 Respiratory Rate 16 16 16 Blood Pressure 74/51 L 74/44 L Pulse Oximetry 91 L 02/08/18 11:00 02/08/18 11:39 02/08/18 12:00 Temperature 99 F Pulse Rate 92 H 87 91 H Respiratory Rate 16 21 16 Blood Pressure 89/52 L 80/53 L Pulse Oximetry 86 L 90 L 86 L 02/08/18 13:00 Temperature 98.3 F Pulse Rate 101 H Respiratory Rate 16 Blood Pressure 102/58 L Pulse Oximetry 93 L I&O: Intake & Output 02/06/18 02/07/18 02/08/18 02/09/18 06:59 06:59 06:59 06:59 Intake Total 3850 / 3850 Balance 3850 / 3850 Weight 86.183 kg Physical Exam: CONSTITUTIONAL/GENERAL: This is an adequately nourished, elderly male patient currently intubated and sedated on mechanical ventilation TUBES/LINES/DRAINS: CVL, PIV, Chaudhry, ETT, OGT, soft-restraints SKIN: No jaundice, rashes, or lesions. Ecchymoses on upper extremities. No wounds seen anteriorly. Skin temperature appropriate. Not diaphoretic. HEAD: Atraumatic. Normocephalic. EYES: Pupils equal and round and reactive. Extraocular motions intact. No scleral icterus. No injection or drainage. Fundi not examined. ENT: Hearing grossly normal. Nose without bleeding or purulent drainage. Throat without visible erythema, exudates, masses, or lesions. NECK: Trachea midline. Supple, nontender. No palpable thyroid enlargement or nodularity. CARDIOVASCULAR: Tachycardic. Normal S1,S2. Peripheral pulses symmetric. RESPIRATORY/CHEST: Intubated on mechanical vent. Coarse breath sounds. GASTROINTESTINAL: Abdomen soft, non-tender, nondistended. No guarding. Bowel sounds present. GENITOURINARY: Without palpable bladder distension. Chaudhry catheter in place. MUSCULOSKELETAL: Extremities without clubbing, cyanosis. Feet cool to touch with slight mottling LYMPHATICS: No palpable cervical or supraclavicular adenopathy. NEUROLOGICAL: Sedated PSYCHIATRIC: Sedated. Diagnostic Tests Laboratory: Laboratory Results - last 72 hr 02/08/18 02/08/18 02/08/18 06:30 06:33 06:35 WBC 5.1 RBC 4.45 L Hgb 12.6 L Hct 38.6 L MCV 86.8 MCH 28.5 MCHC 32.8 RDW 21.1 H Plt Count 139 L MPV 7.7 Prelim Diff (Auto) Neut % (Auto) 78.2 H Lymph % (Auto) 18.6 [place] % (Auto) 2.8 Eos % (Auto) 0.2 Baso % (Auto) 0.2 Neut # (Auto) 4.0 Lymph # (Auto) 1.0 [place] # (Auto) 0.1 Eos # (Auto) 0.0 Baso # (Auto) 0.0 WBC Differential . Seg Neuts % (Manual) Band Neuts % (Manual) Lymphocytes % (Manual) Monocytes % (Manual) Eosinophils % (Manual) Metamyelocytes % (Man) Myelocytes % (Man) Abs Neuts (Manual) Nucleated RBCs/100 WBC Differential Comment Auto diff final Dohle Bodies Platelet Estimate Platelet Morphology PT INR APTT Puncture Site Left radial Patient Temperature 98.6 O2 Saturation 84 L* ABG pH 7.30 L ABG pCO2 45 H ABG pO2 58 L* ABG HCO3 21 L ABG O2 Content 15.3 ABG Base Excess -4.0 L ABG Methemoglobin 0.7 Rob Test Present Hemoglobin 12.9 Carboxyhemoglobin 1.2 O2 Delivery Device Ventilator Vent Setting [id number]/550/peep 5 Inspired O2 100 Critical Value Yes Sodium Potassium Chloride Carbon Dioxide Anion Gap BUN Creatinine Estimated GFR POC Glucose 84 Random Glucose Lactic Acid Calcium Prot Corrected Calcium Magnesium Total Bilirubin AST ALT Alkaline Phosphatase Total Creatine Kinase CK-MB (CK-2) CK-MB (CK-2) % Troponin I B-Natriuretic Peptide Total Protein Albumin Urine Color Urine Clarity Urine pH Ur Specific [place] Urine Protein Urine Glucose (UA) Urine Ketones Urine Occult Blood Urine Nitrate Urine Bilirubin Urine Urobilinogen Ur Leukocyte Esterase Urine RBC Urine WBC Ur Squamous Epith Cells Amorphous Sediment Urine Bacteria Hyaline Casts Granular Casts Urine Mucus Micro UA Comment Ur Microscopic Review Urine Culture Comments 02/08/18 02/08/18 02/08/18 06:35 06:35 06:35 WBC RBC Hgb Hct MCV MCH MCHC RDW Plt Count MPV Prelim Diff (Auto) Neut % (Auto) Lymph % (Auto) [place] % (Auto) Eos % (Auto) Baso % (Auto) Neut # (Auto) Lymph # (Auto) [place] # (Auto) Eos # (Auto) Baso # (Auto) WBC Differential Seg Neuts % (Manual) Band Neuts % (Manual) Lymphocytes % (Manual) Monocytes % (Manual) Eosinophils % (Manual) Metamyelocytes % (Man) Myelocytes % (Man) Abs Neuts (Manual) Nucleated RBCs/100 WBC Differential Comment Dohle Bodies Platelet Estimate Platelet Morphology PT 10.6 INR 1.0 APTT 29.4 Puncture Site Patient Temperature O2 Saturation ABG pH ABG pCO2 ABG pO2 ABG HCO3 ABG O2 Content ABG Base Excess ABG Methemoglobin Rob Test Hemoglobin Carboxyhemoglobin O2 Delivery Device Vent Setting Inspired O2 Critical Value Sodium 140 Potassium 4.4 Chloride 107 Carbon Dioxide 21.7 Anion Gap 11 BUN 37 H Creatinine 1.36 H Estimated GFR 51 L POC Glucose Random Glucose 75 Lactic Acid 4.6 H* Calcium 7.6 L Prot Corrected Calcium Magnesium 2.0 Total Bilirubin 0.4 AST 29 ALT 23 Alkaline Phosphatase 45 Total Creatine Kinase 636 H CK-MB (CK-2) 6.9 H CK-MB (CK-2) % 1.1 Troponin I 0.20 H B-Natriuretic Peptide Total Protein 5.4 L Albumin 2.0 L Urine Color Urine Clarity Urine pH Ur Specific [place] Urine Protein Urine Glucose (UA) Urine Ketones Urine Occult Blood Urine Nitrate Urine Bilirubin Urine Urobilinogen Ur Leukocyte Esterase Urine RBC Urine WBC Ur Squamous Epith Cells Amorphous Sediment Urine Bacteria Hyaline Casts Granular Casts Urine Mucus Micro UA Comment Ur Microscopic Review Urine Culture Comments 02/08/18 02/08/18 02/08/18 06:35 06:35 09:26 WBC RBC Hgb Hct MCV MCH MCHC RDW Plt Count MPV Prelim Diff (Auto) Neut % (Auto) Lymph % (Auto) [place] % (Auto) Eos % (Auto) Baso % (Auto) Neut # (Auto) Lymph # (Auto) [place] # (Auto) Eos # (Auto) Baso # (Auto) WBC Differential Seg Neuts % (Manual) Band Neuts % (Manual) Lymphocytes % (Manual) Monocytes % (Manual) Eosinophils % (Manual) Metamyelocytes % (Man) Myelocytes % (Man) Abs Neuts (Manual) Nucleated RBCs/100 WBC Differential Comment Dohle Bodies Platelet Estimate Platelet Morphology PT INR APTT Puncture Site Patient Temperature O2 Saturation ABG pH ABG pCO2 ABG pO2 ABG HCO3 ABG O2 Content ABG Base Excess ABG Methemoglobin Rob Test Hemoglobin Carboxyhemoglobin O2 Delivery Device Vent Setting Inspired O2 Critical Value Sodium Potassium Chloride Carbon Dioxide Anion Gap BUN Creatinine Estimated GFR POC Glucose Random Glucose Lactic Acid 5.0 H* Calcium Prot Corrected Calcium Magnesium Total Bilirubin AST ALT Alkaline Phosphatase Total Creatine Kinase CK-MB (CK-2) CK-MB (CK-2) % Troponin I B-Natriuretic Peptide 223 H Total Protein Albumin Urine Color Nicole Urine Clarity Cloudy H Urine pH 5.0 Ur Specific [place] 1.023 Urine Protein 30 H Urine Glucose (UA) Negative Urine Ketones Negative Urine Occult Blood Negative Urine Nitrate Negative Urine Bilirubin Negative Urine Urobilinogen 4 or greater Ur Leukocyte Esterase Negative Urine RBC Less than 1 Urine WBC 1 Ur Squamous Epith Cells 1 Amorphous Sediment Occasional H Urine Bacteria Few H Hyaline Casts 7 Granular Casts 5 Urine Mucus Few H Micro UA Comment Cath-culture ind Ur Microscopic Review Not Reportable Urine Culture Comments Cath-cult indicated 02/08/18 02/08/18 02/08/18 10:12 11:00 11:52 WBC RBC Hgb Hct MCV MCH MCHC RDW Plt Count MPV Prelim Diff (Auto) Neut % (Auto) Lymph % (Auto) [place] % (Auto) Eos % (Auto) Baso % (Auto) Neut # (Auto) Lymph # (Auto) [place] # (Auto) Eos # (Auto) Baso # (Auto) WBC Differential Seg Neuts % (Manual) Band Neuts % (Manual) Lymphocytes % (Manual) Monocytes % (Manual) Eosinophils % (Manual) Metamyelocytes % (Man) Myelocytes % (Man) Abs Neuts (Manual) Nucleated RBCs/100 WBC Differential Comment Dohle Bodies Platelet Estimate Platelet Morphology PT INR APTT Puncture Site Left radial Patient Temperature 98.6 O2 Saturation 91 ABG pH 7.27 L* ABG pCO2 38 ABG pO2 72 ABG HCO3 17 L ABG O2 Content 15.1 ABG Base Excess -8.5 L ABG Methemoglobin 1.6 Rob Test Present Hemoglobin 11.8 L Carboxyhemoglobin 0.9 O2 Delivery Device Ventilator Vent Setting Ac16/500/+10 Inspired O2 100 Critical Value Yes Sodium Potassium Chloride Carbon Dioxide Anion Gap BUN Creatinine Estimated GFR POC Glucose 86 104 Random Glucose Lactic Acid Calcium Prot Corrected Calcium Magnesium Total Bilirubin AST ALT Alkaline Phosphatase Total Creatine Kinase CK-MB (CK-2) CK-MB (CK-2) % Troponin I B-Natriuretic Peptide Total Protein Albumin Urine Color Urine Clarity Urine pH Ur Specific [place] Urine Protein Urine Glucose (UA) Urine Ketones Urine Occult Blood Urine Nitrate Urine Bilirubin Urine Urobilinogen Ur Leukocyte Esterase Urine RBC Urine WBC Ur Squamous Epith Cells Amorphous Sediment Urine Bacteria Hyaline Casts Granular Casts Urine Mucus Micro UA Comment Ur Microscopic Review Urine Culture Comments 02/08/18 02/08/18 02/08/18 12:58 12:58 12:58 WBC 8.6 D RBC 4.14 L Hgb 11.8 L Hct 36.3 L MCV 87.7 MCH 28.5 MCHC 32.5 RDW 21.7 H Plt Count 163 MPV 7.9 Prelim Diff (Auto) Slide review pending Neut % (Auto) 86.0 H Lymph % (Auto) 10.7 [place] % (Auto) 3.2 Eos % (Auto) 0.0 Baso % (Auto) 0.1 Neut # (Auto) 7.4 Lymph # (Auto) 0.9 L [place] # (Auto) 0.3 Eos # (Auto) 0.0 Baso # (Auto) 0.0 WBC Differential Manual diff final Seg Neuts % (Manual) 46 Band Neuts % (Manual) 45 H Lymphocytes % (Manual) 5 L Monocytes % (Manual) 1 Eosinophils % (Manual) 1 Metamyelocytes % (Man) 1 Myelocytes % (Man) 1 H Abs Neuts (Manual) 8.0 H Nucleated RBCs/100 WBC 1 H Differential Comment . Dohle Bodies Present H Platelet Estimate Normal Platelet Morphology Normal PT INR APTT Puncture Site Patient Temperature O2 Saturation ABG pH ABG pCO2 ABG pO2 ABG HCO3 ABG O2 Content ABG Base Excess ABG Methemoglobin Rob Test Hemoglobin Carboxyhemoglobin O2 Delivery Device Vent Setting Inspired O2 Critical Value Sodium 142 Potassium 5.4 H D Chloride 109 H Carbon Dioxide 19.3 L Anion Gap 14 BUN 39 H Creatinine 1.76 H Estimated GFR 38 L POC Glucose Random Glucose 112 H Lactic Acid Calcium 7.2 L* Prot Corrected Calcium 8.1 L Magnesium Total Bilirubin 0.4 AST 67 H ALT 34 Alkaline Phosphatase 45 Total Creatine Kinase CK-MB (CK-2) CK-MB (CK-2) % Troponin I Cancelled 0.38 H B-Natriuretic Peptide Total Protein 5.4 L Albumin 1.9 L Urine Color Urine Clarity Urine pH Ur Specific [place] Urine Protein Urine Glucose (UA) Urine Ketones Urine Occult Blood Urine Nitrate Urine Bilirubin Urine Urobilinogen Ur Leukocyte Esterase Urine RBC Urine WBC Ur Squamous Epith Cells Amorphous Sediment Urine Bacteria Hyaline Casts Granular Casts Urine Mucus Micro UA Comment Ur Microscopic Review Urine Culture Comments 02/08/18 12:58 WBC RBC Hgb Hct MCV MCH MCHC RDW Plt Count MPV Prelim Diff (Auto) Neut % (Auto) Lymph % (Auto) [place] % (Auto) Eos % (Auto) Baso % (Auto) Neut # (Auto) Lymph # (Auto) [place] # (Auto) Eos # (Auto) Baso # (Auto) WBC Differential Seg Neuts % (Manual) Band Neuts % (Manual) Lymphocytes % (Manual) Monocytes % (Manual) Eosinophils % (Manual) Metamyelocytes % (Man) Myelocytes % (Man) Abs Neuts (Manual) Nucleated RBCs/100 WBC Differential Comment Dohle Bodies Platelet Estimate Platelet Morphology PT INR APTT Puncture Site Patient Temperature O2 Saturation ABG pH ABG pCO2 ABG pO2 ABG HCO3 ABG O2 Content ABG Base Excess ABG Methemoglobin Rob Test Hemoglobin Carboxyhemoglobin O2 Delivery Device Vent Setting Inspired O2 Critical Value Sodium Potassium Chloride Carbon Dioxide Anion Gap BUN Creatinine Estimated GFR POC Glucose Random Glucose Lactic Acid 4.3 H* Calcium Prot Corrected Calcium Magnesium Total Bilirubin AST ALT Alkaline Phosphatase Total Creatine Kinase CK-MB (CK-2) CK-MB (CK-2) % Troponin I B-Natriuretic Peptide Total Protein Albumin Urine Color Urine Clarity Urine pH Ur Specific [place] Urine Protein Urine Glucose (UA) Urine Ketones Urine Occult Blood Urine Nitrate Urine Bilirubin Urine Urobilinogen Ur Leukocyte Esterase Urine RBC Urine WBC Ur Squamous Epith Cells Amorphous Sediment Urine Bacteria Hyaline Casts Granular Casts Urine Mucus Micro UA Comment Ur Microscopic Review Urine Culture Comments Result Diagrams: 02/08/18 12:58 02/08/18 12:58 Microbiology: Microbiology 02/08/18 06:35 Streptococcus pneumoniae Antigen (M - Final Urine - Catheterized Urine Presumptive negative for streptococcus pneumoniae antigen, suggesting no current or recent infection. Infection due to Streptococcus pneumoniae cannot be ruled out since the antigen present in the sample may be below the detection limit of the test. 02/08/18 06:35 Legionella Antigen - Final Urine - Catheterized Urine Presumptive negative for Legionella pneumophila serogroup 1 antigen in urine, suggesting no recent or recurrent infection. Infection due to Legionella cannot be ruled out since other serogroups and species may cause disease, antigen may not be present in urine in early infection, and the level of antigen present in the urine may be below the detection limit of the test. Imaging: Chest X-Ray 02/08/18 06:22 CONCLUSION: 1. ETT in good position. NGT in the stomach. 2. Mild airspace disease in the right lower lung zone with patchy diffuse airspace consolidation throughout the left mid to lower lung zones. Differential considerations include developing lobar pneumonia versus aspiration. Head CT 02/08/18 06:43 CONCLUSION: 1. Postsurgical features of right posterior temporal craniotomy and resection of mass in the right temporooccipital low convexities with evidence for recurrent/residual disease similar to previous MRI exam. 2. No increased mass effect, midline shift or definitive hemorrhage. . Chest CTA 02/08/18 07:13 CONCLUSION: 1. No CT evidence for pulmonary artery embolism. 2. Dense left upper lobe airspace consolidation with left lower lobe collapse. Additional patchy nodular airspace opacities in the left upper lobe may be inflammatory/infectious in etiology. Overall findings are concerning for severe aspiration. 3. Multiple right upper lobe nodules measuring up to 1 cm. Although these may also be inflammatory or infectious in etiology given findings in the left lung, differential considerations include metastatic disease in this patient with history of brain mass. 4. Subcentimeter mediastinal nodes, likely reactive. Procedures: 02/08/2018: Endotracheal intubation 02/08/2018: Right femoral central line placement Patient/Family Conference Present at Family Conference: Met with patient's , Frederick, at bedside. Family Conference Location: Bedside Issues Discussed: * Palliative care role, purpose, approach * Additional medical, psychosocial, and spiritual history * Patients general health, functional status, and cognitive changes in the months leading up to the current hospitalization * Patient/family understanding of the current medical problems * Patient/family understanding of prognosis * Patients goals of care as best understood from advance directives and/or conversations and/or values * Current medical treatment options and benefits/burdens of those options * Likely scenarios comparing ongoing aggressive care with a transition to comfort measures only * Questions answered to the best of my ability * Palliative care contact information provided Assessment and Plan - Disease Oriented Problem List (1) Septic shock (2) Pneumonia (3) Lactic acidosis (4) ANTHONY (acute kidney injury) (5) Elevated troponin (6) Small cell lung cancer (7) Large B-cell lymphoma (8) Coronary artery disease (9) COPD (chronic obstructive pulmonary disease) - Symptom Scale (1) Dyspnea 0-10 Scale: Unable to quantify (2) Pain 0-10 Scale: Unable to quantify Pertinent Non-Medical Issues: Psychosocial: Patient was born and raised in [place]. His highest level of education is high school; he worked as a training engineer. He now lives in [place], [place]. He is retired. He has been to Frederick for approximately 3 years, but they have been together for 30. Spiritual: None Legal: Patient's partner/, Osman Yuan, is designated as the healthcare surrogate decision-maker. Ethical issues impacting care: No known ethical issues impacting care at this time. Important Contacts: Patient's partner/, Osman Yuan: [phone] Prognosis: Patient is an elderly male currently admitted with respiratory failure, septic shock, pneumonia, acute kidney injury and lactic acidemia. He is sedated and intubated, requiring mechanical ventilator support as well as vasopressor support. Patient has a known history of small cell cancer and large B cell lymphoma. Overall prognosis is poor; patient is high risk for further deterioration and mortality. Code Status: No Code DNR Plan: * NO CODE * Patient has designated his , Frederick, as his healthcare surrogate decision-maker. Advanced directives are accessible in the patient's EMR. * Discussed patient with Dr. Pittman and RN (Dustin) * Palliative care contact information was provided to the patient's family. * Symptom management: Pain: Multifactorial. Possible sources of pain include disease progression, neuropathy status post cranial radiation, infection, pneumonia, invasive lines, immobility, etc. Currently sedated on Fentanyl and Versed drip. Dyspnea: Currently intubated on mechanical ventilation. Contributing factors include pneumonia and COPD. CTA chest showed dense left upper lobe airspace consolidation with left lobar lobe collapse. Additional patchy nodular airspace opacities in the left upper lobe may be inflammatory/infectious in etiology; differential considerations include metastatic disease * Palliative care will continue to follow this patient throughout his hospitalization to establish trust, assist with symptom management and clarification of medical treatment goals. . Appreciation Thank you for the opportunity to participate in the care of Kiet Yuan. Attestation Attestation: To help prompt me to consider important information that might be impacting today's encounter and assessment, information from prior notes written by myself or my colleagues may have been "brought forward" into today's note. My signature on this note, however, is an attestation that I personally performed the exam, history, and/or decision-making noted today, and, unless otherwise indicated, the interactions with patient, family, and staff as well as the review of records all occurred today. I also attest that the listed assessment and stated plan reflect my best clinical judgment today based on the combination of historical information, prior notes, and today's exam/ interactions. When time spent is documented, it refers only to time spent today by the signer, or if indicated, combined time spent today by collaborating physician/nurse practitioner.
[2018-02-08] MEDS ORDERED: Dextrose 5%/NaCl 0.9% Inj 1,000 ML IV.CONT SCH (15:00)
[2018-02-08] MEDS ORDERED: Sodium Polystyrene Sulfonate/Sorbitol Liq 15 GM/60 ML UDC PO ONE (15:15)
--- NOTE | 2018-02-08 15:41 | ECG ---
Date Performed: 02/08/2018 Time Performed: 06:48:07 PTAGE: 77 years EKG: ATRIAL FIBRILLATION WITH RAPID VENTRICULAR RESPONSE NONSPECIFIC ST & T-WAVE ABNORMALITY Com pared to previous tracing, the patient is now in atrial fibrillation with rapid venticular response A BNORMAL RHYTHM ECG PREVIOUS TRACING : 12/20/2017 16.32 DOCTOR: Radha Irving Interpretating Date/Time 02/08/2018 15:40:08
[2018-02-08] MEDS: Sodium Bicarbonate 8.4% Inj 75 MEQ in Dextrose 5% in Water Inj 925 ML IV.CONT SCH ×2 (16:50)
--- NOTE | 2018-02-08 21:38 | MB ---
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 HISTORY OF PRESENT ILLNESS: Kiet is a 77-year-old male. He is on the ventilator, sedated. Unable to give any history. History is obtained through the review of the records. The patient is under the care of my associate, Dr. Brand. He has a history of small cell lung cancer. It was limited stage, and he was treated with radiation and chemotherapy. He also had received prophylactic cranial radiation therapy, and he went into remission. The patient recently was found to have isolated brain mass. This was resected and the pathology report came back as B-cell non-Hodgkin's lymphoma. Dr. Brand recommended patient to have radiation therapy first and then he was planning to give him Rituxan and Temodar. The patient has been evaluated by Dr. Lopez. The plan was to start radiation therapy. However, the patient now brought in by paramedics after he had altered change in mental status. He was hypoxemic. His O2 saturation was 70s and he was hypotensive. He was intubated in the field and was brought into the emergency room. On presentation, the patient was found to have a fever, hypotension, tachycardia. He has lactic acidosis. The patient is in septic shock. He is on antibiotics. He is on the ventilator. I have been asked to see him for evaluation as Dr. Brand is off today. REVIEW OF SYSTEMS: Not possible. 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 PAST SURGICAL HISTORY: Craniotomy with resection of the brain mass, cholecystectomy, laminectomy, Ptnzao-M-Yzfq placement. ALLERGIES: NONE. MEDICATIONS: 1. Folic acid. 2. Symbicort. 3. Amlodipine. 4. Potassium. 5. Lisinopril. 6. Zinc. 7. Pravastatin. FAMILY HISTORY: Unable to obtain. SOCIAL HISTORY: Unable to obtain. PHYSICAL EXAMINATION: GENERAL: This is an elderly white male who is on the ventilator, sedated. VITAL SIGNS: Temperature 98. Heart rate is 107, blood pressure is 116/65, O2 saturation 94%. HEENT: PERRLA. ET tube noted. NECK: No lymphadenopathy. LUNGS: Decreased breath sounds on right side. HEART: Regular rate and rhythm. ABDOMEN: Distended. EXTREMITIES: No pedal edema. NEUROLOGIC: The patient is sedated on the ventilator. ASSESSMENT AND PLAN: 1. Septic shock. 2. Recently diagnosed with B-cell SALESPERSON [employer] APPLIANCES non-Hodgkin cell lymphoma. 3. History of small cell lung cancer, limited stage, treated with radiation and chemotherapy followed by prophylactic cranial radiation therapy. PLAN: I have reviewed his available records. The patient is on the ventilator. He is in septic shock. He is on antibiotics. According to the patient's RN, the family have made him DNR and wanted just supportive care. Palliative Care have been involved and they have evaluated the patient. Further recommendations will be based on his hospital stay. Thank you for asking my opinion. MD AZUCENA Sanford/elliott , 07:50 PM , 08:00 PM MTDDarshana
[2018-02-09] MEDS: Piperacil/Tazo 4.5 GM Premix 4.5 GM/100 ML BAG IV.SIG SCH ×3 (01:03→13:33)
[2018-02-09] MEDS ORDERED: Vancomycin Inj 1,250 MG in Sodium Chlor 0.9% Inj 250 ML IV.SIG SCH (04:00)
[2018-02-09] MEDS ORDERED: Chlorhexidine Gluconate 2% 1 Pack (2 Cloths) TOPICAL PRN (04:00)
[2018-02-09] MEDS: Chlorhexidine Gluconate 2% 1 Pack (2 Cloths) TOPICAL SCH (04:15)
[2018-02-09] MEDS: Sodium Bicarbonate 8.4% Inj 75 MEQ in Dextrose 5% in Water Inj 925 ML IV.CONT SCH ×6 (04:15→16:44)
[2018-02-09 04:17] LABS: Baso % (Auto) 0.2 % (0.0-2.0); Eos % (Auto) 0.1 % (0.0-4.0); Hematocrit 34.3 % (39.0-51.0); Hemoglobin 11.2 gm/dL (13.0-17.0); Lymph # (Auto) 0.5 th/mm3 (1.0-4.8); Mean Corpuscular HGB Conc 32.5 % (32.0-36.0); Mean Corpuscular Volume 86.1 fL (80.0-100.0); Mean Platelet Volume 7.6 fL (7.0-11.0); Mono # (Auto) 0.3 th/mm3 (0.0-0.9); Neut # (Auto) 9.3 th/mm3 (1.8-7.7); Neut % (Auto) 91.7 % (16.0-70.0); Platelet Count 138 th/mm3 (150-450); Red Blood Count 3.99 mil/mm3 (4.50-5.90); Red Cell Distribution Width 21.3 % (11.6-17.2); White Blood Count 10.1 th/mm3 (4.0-11.0)
[2018-02-09 04:44] LABS: Albumin 1.5 g/dL (3.4-5.0); Calcium 6.8 mg/dL (8.5-10.1); Carbon Dioxide 23.7 meq/L (21.0-32.0); Magnesium 2.2 mg/dL (1.5-2.5); Phosphorus 8.6 mg/dL (2.5-4.9); Potassium 5.6 meq/L (3.5-5.1)
[2018-02-09 04:47] LABS: Total Protein 5.1 g/dL (6.4-8.2)
[2018-02-09] MEDS: Insulin NovoLIN Regular Correctional Sugar Inj SQ SCH ×4 (05:05→23:41)
[2018-02-09] MEDS: Hydrocortisone Sod Succinate 100 MG Vial IV.PUSH SCH ×3 (05:06→22:36)
[2018-02-09 06:41] LABS: Lymphocytes 9 % (9-44); Metamyelocytes 30 % (0-1); Monocytes 1 % (0-8); Myelocytes 1 % (0-0)
[2018-02-09 06:43] LABS: Platelet Morphology Normal (Normal)
[2018-02-09 06:44] LABS: Ovalocytes 1+
[2018-02-09] MEDS: Azithromycin Inj 500 MG in Sodium Chlor 0.9% Inj 250 ML IV.SIG SCH (08:30)
[2018-02-09] MEDS: Pantoprazole Inj 40 MG Vial IV.PUSH SCH (08:31)
--- NOTE | 2018-02-09 09:02 | P.PNCC ---
Subjective Subjective Remarks/Hospital Course: The patient is a 77-year-old male with past medical history of small cell lung cancer, large B cell lymphoma, COPD, who presented to [facility] ED via EMS for hypoxemia and altered mental status. The patient reportedly had O2 saturation in the 70s on 2 liters nasal cannula and also was hypotensive. He was intubated and placed on mechanical ventilation. Upon arrival to the ED, he had a low-grade fever with temperature of 100.2 and initial blood pressure of 110/74. Then, the patient became hypotensive with a systolic blood pressure in the 70s. His laboratory data showed mild acute kidney injury with creatinine level 1.36 and lactic acidosis with lactic acid level of 4.6. Initial ABG post-intubation showed a pH of 7.30, CO2 45, pO2 of 58, bicarbonate of 21, and sat 84% on assist control ventilation with rate of 16, tidal volume 550, PEEP of 5 and 100% FiO2. A repeat ABG was performed at 11:52 which showed a pH of 7.27 with CO2 38, PaO2 of 72 and a bicarbonate of 17. In the ER, he was given approximately 4 liters of crystalloids along with vancomycin and Zosyn. Due to altered mental status, CT scan of the brain was obtained which showed postsurgical features of right posterior temporal craniotomy and resection of a mass in the right temporal occipital area. No evidence of mass effect, midline shift, or definite hemorrhage. He also underwent CT angiogram of the chest which showed no evidence of pulmonary embolism; however, it showed dense left upper lobe airspace consolidation patchy nodular airspace opacities in left upper lobe and multiple right upper lobe nodules. He was started on Levophed. The patient underwent right craniotomy with resection of tumor as stated above with biopsy results consistent with large B cell lymphoma. He is being followed by Dr. Brand from Oncology. 02/09 [place] remains sedated and intubated. On Levophed 7 mics. Made no code DNR yesterday. Afebrile. Renal function worse today with Cr: 2.0 from 1.36 on arrival. Objective Vital Signs / I&O: Vital Signs 02/08/18 09:00 02/08/18 09:39 02/08/18 10:03 Temperature Pulse Rate 104 H 91 H Respiratory Rate 16 16 Blood Pressure 74/51 L Pulse Oximetry 91 L 02/08/18 10:36 02/08/18 11:00 02/08/18 11:39 Temperature 100.2 F H 99 F Pulse Rate 89 92 H 87 Respiratory Rate 16 16 21 Blood Pressure 74/44 L 89/52 L Pulse Oximetry 86 L 90 L 02/08/18 12:00 02/08/18 13:00 02/08/18 14:00 Temperature 98.3 F Pulse Rate 91 H 101 H 105 H Respiratory Rate 16 16 16 Blood Pressure 80/53 L 102/58 L 95/51 L Pulse Oximetry 86 L 93 L 93 L 02/08/18 15:00 02/08/18 16:00 02/08/18 16:13 Temperature 98 F Pulse Rate 103 H 104 H 101 H Respiratory Rate 16 16 22 Blood Pressure 102/53 L 148/65 H Pulse Oximetry 89 L 93 L 93 L 02/08/18 16:57 02/08/18 17:00 02/08/18 18:00 Temperature Pulse Rate 105 H 104 H Respiratory Rate 16 16 Blood Pressure 105/56 L 112/55 L Pulse Oximetry 93 L 93 L 93 L 02/08/18 19:03 02/08/18 19:10 02/08/18 19:20 Temperature Pulse Rate 107 H 107 H 108 H Respiratory Rate 20 20 20 Blood Pressure 116/65 114/61 Pulse Oximetry 94 L 94 L 94 L 02/08/18 19:30 02/08/18 19:40 02/08/18 19:50 Temperature Pulse Rate 108 H 109 H 109 H Respiratory Rate 20 20 21 Blood Pressure 95/58 L 122/61 117/59 L Pulse Oximetry 94 L 94 L 94 L 02/08/18 20:00 02/08/18 20:10 02/08/18 20:20 Temperature 99.1 F Pulse Rate 107 H 109 H 111 H Respiratory Rate 22 22 20 Blood Pressure 118/59 L 120/59 L 113/58 L Pulse Oximetry 95 95 95 02/08/18 20:30 02/08/18 20:40 02/08/18 20:50 Temperature Pulse Rate 110 H 110 H 108 H Respiratory Rate 21 22 21 Blood Pressure 120/58 L 116/58 L 124/60 Pulse Oximetry 95 95 95 02/08/18 21:00 02/08/18 21:10 02/08/18 21:20 Temperature Pulse Rate 105 H 109 H 106 H Respiratory Rate 26 H 23 20 Blood Pressure 114/57 L 113/58 L 114/56 L Pulse Oximetry 97 94 L 95 02/08/18 21:24 02/08/18 21:27 02/08/18 21:30 Temperature Pulse Rate 106 H 107 H Respiratory Rate 20 19 19 Blood Pressure 111/58 L Pulse Oximetry 95 95 02/08/18 21:40 02/08/18 21:50 02/08/18 22:00 Temperature Pulse Rate 104 H 104 H 104 H Respiratory Rate 19 18 18 Blood Pressure 111/59 L 111/58 L 115/58 L Pulse Oximetry 95 96 96 02/08/18 22:10 02/08/18 22:20 02/08/18 22:30 Temperature Pulse Rate 107 H 108 H 108 H Respiratory Rate 18 19 18 Blood Pressure 121/56 L 120/60 118/56 L Pulse Oximetry 96 96 96 02/08/18 22:40 02/08/18 22:50 02/08/18 23:00 Temperature Pulse Rate 106 H 105 H 109 H Respiratory Rate 18 18 18 Blood Pressure 114/60 117/62 127/63 Pulse Oximetry 97 97 96 02/08/18 23:10 02/08/18 23:20 02/08/18 23:30 Temperature Pulse Rate 109 H 108 H 108 H Respiratory Rate 17 18 18 Blood Pressure 121/62 122/58 L 121/58 L Pulse Oximetry 96 96 96 02/08/18 23:40 02/08/18 23:50 02/09/18 00:00 Temperature 99.6 F Pulse Rate 108 H 108 H 108 H Respiratory Rate 18 17 18 Blood Pressure 128/58 L 122/58 L 117/58 L Pulse Oximetry 96 96 96 02/09/18 00:44 02/09/18 01:00 02/09/18 01:03 Temperature Pulse Rate 111 H 109 H 109 H Respiratory Rate 19 20 18 Blood Pressure 122/59 L Pulse Oximetry 95 95 02/09/18 01:04 02/09/18 01:28 02/09/18 02:00 Temperature Pulse Rate 103 H 99 H Respiratory Rate 17 17 17 Blood Pressure 110/53 L Pulse Oximetry 95 95 96 02/09/18 02:46 02/09/18 03:00 02/09/18 03:50 Temperature Pulse Rate 99 H 100 H 98 H Respiratory Rate 16 16 16 Blood Pressure 115/56 L 115/55 L Pulse Oximetry 96 96 97 02/09/18 04:00 02/09/18 04:58 02/09/18 06:00 Temperature 99.1 F Pulse Rate 97 H 92 H 95 H Respiratory Rate 16 18 Blood Pressure 103/56 L Pulse Oximetry 97 96 Intake & Output 02/08/18 02/09/18 02/09/18 18:59 06:59 18:59 Intake Total 4210 / 4210 7162.5 / 7162.5 Output Total 300 / 300 200 / 200 Balance 3910 / 3910 6962.5 / 6962.5 Weight 101.4 kg Intake: IV 4100 / 4100 7162.5 / 7162.5 Versed Inj 50 mg In 50 ml @ 2 50 / 50 MG/HR 2 mls/hr IV.CONT TITRATE PRN Rx#:[id number] Sodium Bicarbonate 8.4% Inj 75 2000 / 2000 MEQ In D5W Inj 925 ML @ 84 mls/ hr IV.CONT .[id number] AUGUSTUS Rx#: [id number] Azithromycin Inj 500 MG In NS 250 / 250 Inj 250 ML @ 250 mls/hr IV.SIG Q24H AUGUSTUS Rx#:[id number] Levophed-Dextrose 4 mg/250 ml 500 / 500 250 / 250 Drip 4 mg In 250 ml @ 2 MCG/MIN 7.5 mls/hr IV.SIG TITRATE PRN Rx#:[id number] Zosyn 4.5 GM Premix 4.5 gm In 100 / 100 300 / 300 100 ml @ 200 mls/hr IV.SIG Q6H AUGUSTUS Rx#:[id number] NS Inj 1,000 ML @ 1000 mls/hr 3000 / 3000 3000 / 3000 IV.SIG BOLUS AUGUSTUS Rx#:[id number] Vancomycin Inj 1,000 MG In NS 250 / 250 Inj 250 ML @ 250 mls/hr IV.SIG ONCE ONE Rx#:[id number] Vancomycin Inj 1,250 MG In NS 262.5 / 262.5 Inj 250 ML @ 262.5 mls/hr IV. SIG Q24H AUGUSTUS Rx#:[id number] fentaNYL 10 mcg/mL Premix Drip 250 / 250 2,500 mcg In 250 ml @ 50 MCG/HR 5 mls/hr IV.SIG TITRATE PRN Rx #:[id number] Water Bolus Amount 110 / 110 Output: Urine 200 / 200 Urine Amount (Catheter) 300 / 300 Indwelling Urethral Catheter 300 / 300 Other: Bladder Irrigation Fluid - Amount Instilled Indwelling Urethral Catheter 30 # Incontinent Bowel Movements 4 Result Diagrams: 02/09/18 04:00 02/09/18 04:00 Other Results: Laboratory Results - last 12 hr 02/08/18 02/08/18 02/09/18 20:00 23:08 04:00 WBC 10.1 RBC 3.99 L Hgb 11.2 L Hct 34.3 L MCV 86.1 MCH 28.0 MCHC 32.5 RDW 21.3 H Plt Count 138 L MPV 7.6 Prelim Diff (Auto) Slide review pending Neut % (Auto) 91.7 H Lymph % (Auto) 5.0 L Duc[place]ne % (Auto) 3.0 Eos % (Auto) 0.1 Baso % (Auto) 0.2 Neut # (Auto) 9.3 H Lymph # (Auto) 0.5 L [place] # (Auto) 0.3 Eos # (Auto) 0.0 Baso # (Auto) 0.0 WBC Differential Manual diff final Seg Neuts % (Manual) 24 Band Neuts % (Manual) 35 H Lymphocytes % (Manual) 9 Monocytes % (Manual) 1 Metamyelocytes % (Man) 30 H Myelocytes % (Man) 1 H Abs Neuts (Manual) 9.1 H Differential Comment . Platelet Estimate Low L Platelet Morphology Normal Basophilic Stippling Faint H Ovalocytes 1+ H Keratocytes Occ H Sodium Potassium Chloride Carbon Dioxide Anion Gap BUN Creatinine Estimated GFR POC Glucose 235 H Random Glucose Calcium Prot Corrected Calcium Phosphorus Magnesium Total Bilirubin AST ALT Alkaline Phosphatase Total Protein Albumin Nasal Screen MRSA (PCR) Mrsa detected 02/09/18 04:00 WBC RBC Hgb Hct MCV MCH MCHC RDW Plt Count MPV Prelim Diff (Auto) Neut % (Auto) Lymph % (Auto) Duc[place]ne % (Auto) Eos % (Auto) Baso % (Auto) Neut # (Auto) Lymph # (Auto) Duc[place]ne # (Auto) Eos # (Auto) Baso # (Auto) WBC Differential Seg Neuts % (Manual) Band Neuts % (Manual) Lymphocytes % (Manual) Monocytes % (Manual) Metamyelocytes % (Man) Myelocytes % (Man) Abs Neuts (Manual) Differential Comment Platelet Estimate Platelet Morphology Basophilic Stippling Ovalocytes Keratocytes Sodium 140 Potassium 5.6 H Chloride 103 Carbon Dioxide 23.7 Anion Gap 13 BUN 50 H Creatinine 2.11 H Estimated GFR 31 L POC Glucose Random Glucose 182 H Calcium 6.8 L* Prot Corrected Calcium 7.8 L Phosphorus 8.6 H Magnesium 2.2 Total Bilirubin 0.4 AST 102 H ALT 45 Alkaline Phosphatase 52 Total Protein 5.1 L Albumin 1.5 L Nasal Screen MRSA (PCR) Imaging: Chest X-Ray 02/08/18 06:22 CONCLUSION: 1. ETT in good position. NGT in the stomach. 2. Mild airspace disease in the right lower lung zone with patchy diffuse airspace consolidation throughout the left mid to lower lung zones. Differential considerations include developing lobar pneumonia versus aspiration. Head CT 02/08/18 06:43 CONCLUSION: 1. Postsurgical features of right posterior temporal craniotomy and resection of mass in the right temporooccipital low convexities with evidence for recurrent/residual disease similar to previous MRI exam. 2. No increased mass effect, midline shift or definitive hemorrhage. . Chest CTA 02/08/18 07:13 CONCLUSION: 1. No CT evidence for pulmonary artery embolism. 2. Dense left upper lobe airspace consolidation with left lower lobe collapse. Additional patchy nodular airspace opacities in the left upper lobe may be inflammatory/infectious in etiology. Overall findings are concerning for severe aspiration. 3. Multiple right upper lobe nodules measuring up to 1 cm. Although these may also be inflammatory or infectious in etiology given findings in the left lung, differential considerations include metastatic disease in this patient with history of brain mass. 4. Subcentimeter mediastinal nodes, likely reactive. Objective Remarks: GENERAL: Patient is 77 yo intubated and sedated SKIN: Warm and dry. HEAD: Normocephalic. EYES: No scleral icterus. No injection or drainage. NECK: Supple, trachea midline. No JVD or lymphadenopathy. CARDIOVASCULAR: Regular rate and rhythm without murmurs, gallops, or rubs. RESPIRATORY: Breath sounds equal bilaterally. No accessory muscle use. GASTROINTESTINAL: Abdomen soft, non-tender, nondistended. MUSCULOSKELETAL: No cyanosis, or edema. Neuro: Sedated and intubated. Assessment and Plan - Assessment and Plan Plan: 1. VDRF 2. Septic shock. 3. Left-sided pneumonia. 4. Right upper lobe nodules, ddx ,infectious/inflammatory process versus metastatic disease. 5. Lactic acidosis. 6. Acute kidney injury. 7. Mild elevation in troponin. 8. Small cell lung cancer. 9. 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 10. Chronic obstructive pulmonary disease. 11. History of coronary artery disease. Plan Neuro: On Diprivan infusion for sedation. Daily sedation vacation. Pulm: Continue with vent support and maintain sats >92%. Bronchodilators, hydrocortisone 100 mg IV every 8 hours. Check ABG CV: Wean off Levophed keep MAP>65 mmHg. Monitor CKs/troponins, for 2D echo. Continue with IVF : Monitor renal function, I's and O's , avoid nephrotoxins Renal eval, check renal US Continue with bicarb drip. Treat hyperkalemia ith IV insulin, D50, Kayexalate. GI: on Protonix 40 mg IV daily for GI prophylaxis. Start tube feeds- Nepro with goal rate 40ml/hr ID: Continue abx(vancomycin, Zosyn and azithromycin) Follow up on Blood and urine cx, check sputum cx. Strep pneumonia and Legionella urinary AG Endo: SSI with Accu-Cheks for glycemic control Heme: Monitor CBC GI prophylaxis with Protonix 40 mg daily DVT prophylaxis with SCDs only, not on chemical DVT prophylaxis due to previous right craniotomy with brain mass resection. IV [id number]-D-Port placement right femoral central line by the ED physician 02/08 CCT 35 mins
[2018-02-09] MEDS ORDERED: Sodium Polystyrene Sulfonate/Sorbitol Liq 15 GM/60 ML UDC PO ONE (09:30)
--- NOTE | 2018-02-09 11:34 | US ---
EXAM DATE: 02/09/2018 11:26 AM EST AGE/SEX: 77 years / Male INDICATIONS: Acute kidney insufficiency. CLINICAL DATA: This is the patient's initial encounter. Patient reports that signs and symptoms have been present for 1 day and indicates a pain score of Nonresponsive. MEDICAL/SURGICAL HISTORY: . Anemia. Chronic obstructive pulmonary disease. Dementia. Frequen t falls. Hyperlipidemia. Hypertension. Major depressive disorder. Malignant neoplasm of upper lob e of lung. Restless leg syndrome. Coronary artery disease. Peripheral neuropathy. Seizures. Smok er. . Laminectomy. Cholecystectomy. Foot surgery. Qqsefk-X-Nvva placement. COMPARISON: [facility] [place], CT ABDOMEN & PELVIS W CONTRAST, 12/12/2017. . MEASUREMENTS: Right Kidney:__11.1 x 4.8 x 5.0 cm Left Kidney:__11.4 x 5.3 x 5.3 cm FINDINGS: Right Kidney: Normal echotexture and cortical thickness. No mass or hydronephrosis. Left Kidney: 2.7 x 2.5 x 2.6 cm simple cyst at the midpole posteriorly. 6.2 x 7 x 5.8 cm simple cyst at the midpole anteriorly. Bladder: Chaudhry catheter is present. Bladder decompressed. Other: None. CONCLUSION: 1. Left renal cysts. Electronically signed by: Victor Manuel Valle MD 02/09/2018 11:32 AM EST
--- NOTE | 2018-02-09 12:30 | MB ---
cc: Pola Fish MD DATE: 02/09/2018 REASON FOR CONSULTATION: Acute renal failure management. 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 The patient apparently lives at [facility]. The patient presented to the emergency room for admission yesterday with symptoms of hypoxia and altered mental status. Here, he was found to be in respiratory distress and was intubated and assessed with sepsis secondary to pneumonia. Imaging was done, which revealed possible findings of metastatic pulmonary nodules as well versus infectious process. The patient, however, has required pressor supports and continues on pressors, Levophed at this time. He has been intubated as well. Broad spectrum antibiotics were initiated with vancomycin, Zosyn, azithromycin. At this time, he remains intubated and sedated. MEDICAL HISTORY: Reviewed from the chart. Regarding his renal function. The patient had a creatinine of 0.6 in December of this year, only 2 months ago, he presented here with a creatinine of 1.3. His creatinine elevated further to a level of 2.0 today. He has had approximately 300 mL of urine output over the last 24 hours. In addition, the patient has had some elevated potassium levels with the potassium of 5.6, this was medically treated earlier today. The patient was also seen with oncology service. The patient's family have made the patient DNR at this time; however, full aggressive care is being continued. At this point Nephrology was consulted for further evaluation of renal dysfunction. REVIEW OF SYSTEMS: Unobtainable as the patient is intubated at this time. PAST MEDICAL HISTORY: Includes small cell lung cancer, non-Hodgkin's lymphoma, B cell with brain lesions, CAD, dyslipidemia, peripheral neuropathy, history of seizures. PAST SURGICAL HISTORY: Includes right craniotomy with mass resection, cholecystectomy, laminectomy, previous [id number]-A-[id number] placement. ALLERGIES: NO KNOWN DRUG ALLERGIES. FAMILY HISTORY: Noncontributory. SOCIAL HISTORY: The patient smoked in the past. No alcohol use. MEDICATIONS AT HOME: 1. Folic acid. 2. Ferrous sulfate, 3. Decadron. 4. Symbicort. 5. Amlodipine. 6. Potassium. 7. Lisinopril. 8. Zinc 9. Pravastatin. PHYSICAL EXAMINATION: VITAL SIGNS: At time of evaluation temperature 98.6, pulse 104, respiratory rate 18, blood pressure 84/49, 98% oxygen saturation on 60% FiO2. GENERAL: Intubated, sedated. NECK: Soft, supple. CARDIAC: Regular rate and rhythm. PULMONARY: Decreased breath sounds. ABDOMEN: Soft, nontender, nondistended. EXTREMITIES: No edema. LABORATORY DATA: Sodium 140, potassium 5.6, chloride 103, bicarbonate 23.7, BUN 50, creatinine 2.11, glucose 235, lactic acid 4.4, calcium 6.8, corrected calcium 7.8, phosphorus 8.6, AST 102, ALT 45. Troponin 0.33, albumin 1.5. White count 10.1, hemoglobin 11.2, hematocrit 34.3 with platelet count of 138. Urinalysis with 30 protein, 4 plus urobilinogen, occasional sediment, few bacteria, 7 hyaline cast, 5 granular casts, few mucus. ASSESSMENT AND PLAN: 1. Acute kidney injury. The patient with acute kidney injury secondary to sepsis and hypotension. The patient continues on pressor support at this time. He has apparent acute tubular necrosis as well with urinalysis showing signs of granular casts. He has had relatively minimal urine output with 300 mL of urine output over the last 24 hours. At this time, agree with IV fluids and continue with bicarbonate as ordered. In addition, the patient continues on pressor support and broad-spectrum antibiotics. Continue to monitor closely. Potassium is slightly elevated at a level 5.6 earlier which was medically treated. At this time continue bicarbonate and IV fluids. Dialysis could be a consideration; however, he is DNR at this time with underlying history of cancer. Continue goals of care with the family and palliative care, as well as critical care team should dialysis be necessary for potassium or electrolyte management. This may be considered; however, this is a poor overall prognosis and this will need to be determined with the family. At this time, continue with medical management of hyperkalemia as needed. Continue with IV fluids with bicarbonate. Continue to monitor for any recovery of renal function and continue supportive care. 2. Acidosis. The patient with signs of lactic acidosis. This is likely secondary to low perfusion in the setting of hypotension and shock. Continue with bicarbonate drip and continue to follow at this point. 3. Renal ultrasound of note also was done with no apparent findings of any significant pathologies leading to acute kidney injury, this is likely acute tubular necrosis. 4. Pneumonia and sepsis. The patient is on broad spectrum antibiotics with vancomycin, Zosyn and azithromycin. Continue followup with the primary team. Renally dose all medications and antibiotics and narrow spectrum as possible. Continue supportive care. The patient is on pressors and continue to wean as tolerated. 5. Large B cell lymphoma with brain resection. Imaging with possible signs of lung lesions versus infectious process. Continue followup with oncology and primary team. 6. Ventilator-dependent respiratory failure. Continued followup with critical care. Pola Fish MD DVP/ct , 11:55 AM , 12:08 PM
--- NOTE | 2018-02-09 12:35 | P.PNONC ---
Subjective Interval history: T-max 100.2. Patient remains intubated, family at the bedside. Objective Vital Signs/Intake & Output: Vital Signs 02/08/18 13:00 02/08/18 14:00 02/08/18 15:00 Temperature 98.3 F Pulse Rate 101 H 105 H 103 H Respiratory Rate 16 16 16 Blood Pressure 102/58 L 95/51 L 102/53 L Pulse Oximetry 93 L 93 L 89 L 02/08/18 16:00 02/08/18 16:13 02/08/18 16:57 Temperature 98 F Pulse Rate 104 H 101 H Respiratory Rate 16 22 Blood Pressure 148/65 H Pulse Oximetry 93 L 93 L 93 L 02/08/18 17:00 02/08/18 18:00 02/08/18 19:03 Temperature Pulse Rate 105 H 104 H 107 H Respiratory Rate 16 16 20 Blood Pressure 105/56 L 112/55 L Pulse Oximetry 93 L 93 L 94 L 02/08/18 19:10 02/08/18 19:20 02/08/18 19:30 Temperature Pulse Rate 107 H 108 H 108 H Respiratory Rate 20 20 20 Blood Pressure 116/65 114/61 95/58 L Pulse Oximetry 94 L 94 L 94 L 02/08/18 19:40 02/08/18 19:50 02/08/18 20:00 Temperature 99.1 F Pulse Rate 109 H 109 H 107 H Respiratory Rate 20 21 22 Blood Pressure 122/61 117/59 L 118/59 L Pulse Oximetry 94 L 94 L 95 02/08/18 20:10 02/08/18 20:20 02/08/18 20:30 Temperature Pulse Rate 109 H 111 H 110 H Respiratory Rate 22 20 21 Blood Pressure 120/59 L 113/58 L 120/58 L Pulse Oximetry 95 95 95 02/08/18 20:40 02/08/18 20:50 02/08/18 21:00 Temperature Pulse Rate 110 H 108 H 105 H Respiratory Rate 22 21 26 H Blood Pressure 116/58 L 124/60 114/57 L Pulse Oximetry 95 95 97 02/08/18 21:10 02/08/18 21:20 02/08/18 21:24 Temperature Pulse Rate 109 H 106 H 106 H Respiratory Rate 23 20 20 Blood Pressure 113/58 L 114/56 L Pulse Oximetry 94 L 95 02/08/18 21:27 02/08/18 21:30 02/08/18 21:40 Temperature Pulse Rate 107 H 104 H Respiratory Rate 19 19 19 Blood Pressure 111/58 L 111/59 L Pulse Oximetry 95 95 95 02/08/18 21:50 02/08/18 22:00 02/08/18 22:10 Temperature Pulse Rate 104 H 104 H 107 H Respiratory Rate 18 18 18 Blood Pressure 111/58 L 115/58 L 121/56 L Pulse Oximetry 96 96 96 02/08/18 22:20 02/08/18 22:30 02/08/18 22:40 Temperature Pulse Rate 108 H 108 H 106 H Respiratory Rate 19 18 18 Blood Pressure 120/60 118/56 L 114/60 Pulse Oximetry 96 96 97 02/08/18 22:50 02/08/18 23:00 02/08/18 23:10 Temperature Pulse Rate 105 H 109 H 109 H Respiratory Rate 18 18 17 Blood Pressure 117/62 127/63 121/62 Pulse Oximetry 97 96 96 02/08/18 23:20 02/08/18 23:30 02/08/18 23:40 Temperature Pulse Rate 108 H 108 H 108 H Respiratory Rate 18 18 18 Blood Pressure 122/58 L 121/58 L 128/58 L Pulse Oximetry 96 96 96 02/08/18 23:50 02/09/18 00:00 02/09/18 00:44 Temperature 99.6 F Pulse Rate 108 H 108 H 111 H Respiratory Rate 17 18 19 Blood Pressure 122/58 L 117/58 L 122/59 L Pulse Oximetry 96 96 95 02/09/18 01:00 02/09/18 01:03 02/09/18 01:04 Temperature Pulse Rate 109 H 109 H Respiratory Rate 20 18 17 Blood Pressure Pulse Oximetry 95 95 02/09/18 01:28 02/09/18 02:00 02/09/18 02:46 Temperature Pulse Rate 103 H 99 H 99 H Respiratory Rate 17 17 16 Blood Pressure 110/53 L 115/56 L Pulse Oximetry 95 96 96 02/09/18 03:00 02/09/18 03:50 02/09/18 04:00 Temperature 99.1 F Pulse Rate 100 H 98 H 97 H Respiratory Rate 16 16 16 Blood Pressure 115/55 L 103/56 L Pulse Oximetry 96 97 97 02/09/18 04:58 02/09/18 05:15 02/09/18 05:30 Temperature Pulse Rate 92 H 92 H 93 H Respiratory Rate 18 16 15 Blood Pressure 105/52 L 108/58 L Pulse Oximetry 96 96 97 02/09/18 05:45 02/09/18 06:00 02/09/18 06:15 Temperature Pulse Rate 93 H 93 H 93 H Respiratory Rate 16 15 16 Blood Pressure 112/58 L 113/53 L 113/56 L Pulse Oximetry 97 97 97 02/09/18 06:30 02/09/18 06:45 02/09/18 07:00 Temperature Pulse Rate 102 H 99 H 99 H Respiratory Rate 24 20 18 Blood Pressure 112/53 L 120/58 L 111/56 L Pulse Oximetry 93 L 96 97 02/09/18 07:15 02/09/18 07:30 02/09/18 07:45 Temperature Pulse Rate 97 H 97 H 95 H Respiratory Rate 20 17 17 Blood Pressure 109/54 L 111/57 L 102/56 L Pulse Oximetry 95 96 94 L 02/09/18 08:00 02/09/18 08:15 02/09/18 08:30 Temperature 98.8 F Pulse Rate 91 H 92 H 91 H Respiratory Rate 15 16 17 Blood Pressure 103/55 L 103/56 L 105/59 L Pulse Oximetry 98 96 95 02/09/18 08:45 02/09/18 09:00 02/09/18 09:15 Temperature Pulse Rate 88 104 H 89 Respiratory Rate 16 17 16 Blood Pressure 103/59 L 95/52 L 108/58 L Pulse Oximetry 96 95 97 02/09/18 09:27 02/09/18 09:30 02/09/18 09:46 Temperature Pulse Rate 84 88 89 Respiratory Rate 19 18 16 Blood Pressure 114/40 L 89/52 L Pulse Oximetry 96 97 02/09/18 10:00 02/09/18 10:15 02/09/18 10:30 Temperature Pulse Rate 104 H 85 86 Respiratory Rate 15 17 15 Blood Pressure 90/50 L 90/55 L 86/53 L Pulse Oximetry 97 97 94 L 02/09/18 10:45 02/09/18 11:00 02/09/18 11:15 Temperature Pulse Rate 92 H 91 H 91 H Respiratory Rate 15 15 15 Blood Pressure 93/55 L 86/52 L 84/49 L Pulse Oximetry 96 96 95 02/09/18 11:27 02/09/18 11:40 Temperature Pulse Rate 104 H Respiratory Rate 25 H 18 Blood Pressure Pulse Oximetry 98 Intake & Output 02/08/18 02/09/18 02/09/18 18:59 06:59 18:59 Intake Total 4210 / 4210 7162.5 / 7162.5 350 / 350 Output Total 300 / 300 200 / 200 Balance 3910 / 3910 6962.5 / 6962.5 350 / 350 Weight 101.4 kg Intake: IV 4100 / 4100 7162.5 / 7162.5 350 / 350 Versed Inj 50 mg In 50 ml @ 2 50 / 50 MG/HR 2 mls/hr IV.CONT TITRATE PRN Rx#:[id number] Sodium Bicarbonate 8.4% Inj 75 2000 / 2000 MEQ In D5W Inj 925 ML @ 84 mls/ hr IV.CONT .[id number] RADHA Rx#: [id number] Azithromycin Inj 500 MG In NS 250 / 250 Inj 250 ML @ 250 mls/hr IV.SIG Q24H [facility] Rx#:[id number] Levophed-Dextrose 4 mg/250 ml 500 / 500 250 / 250 250 / 250 Drip 4 mg In 250 ml @ 2 MCG/MIN 7.5 mls/hr IV.SIG TITRATE PRN Rx#:[id number] Zosyn 4.5 GM Premix 4.5 gm In 100 / 100 300 / 300 100 / 100 100 ml @ 200 mls/hr IV.SIG Q6H RADHA Rx#:[id number] NS Inj 1,000 ML @ 1000 mls/hr 3000 / 3000 3000 / 3000 IV.SIG BOLUS [facility] Rx#:[id number] Vancomycin Inj 1,000 MG In NS 250 / 250 Inj 250 ML @ 250 mls/hr IV.SIG ONCE ONE Rx#:[id number] Vancomycin Inj 1,250 MG In NS 262.5 / 262.5 Inj 250 ML @ 262.5 mls/hr IV. SIG Q24H [facility] Rx#:[id number] fentaNYL 10 mcg/mL Premix Drip 250 / 250 2,500 mcg In 250 ml @ 50 MCG/HR 5 mls/hr IV.SIG TITRATE PRN Rx #:[id number] Water Bolus Amount 110 / 110 Output: Urine 200 / 200 Urine Amount (Catheter) 300 / 300 Indwelling Urethral Catheter 300 / 300 Other: Bladder Irrigation Fluid - Amount Instilled Indwelling Urethral Catheter 30 # Incontinent Bowel Movements 4 Result Diagrams: 02/09/18 04:00 02/09/18 16:15 Laboratory Results: Laboratory Results - last 24 hr 02/08/18 02/08/18 02/08/18 12:58 12:58 12:58 WBC 8.6 D RBC 4.14 L Hgb 11.8 L Hct 36.3 L MCV 87.7 MCH 28.5 MCHC 32.5 RDW 21.7 H Plt Count 163 MPV 7.9 Prelim Diff (Auto) Slide review pending Neut % (Auto) 86.0 H Lymph % (Auto) 10.7 [place] % (Auto) 3.2 Eos % (Auto) 0.0 Baso % (Auto) 0.1 Neut # (Auto) 7.4 Lymph # (Auto) 0.9 L [place] # (Auto) 0.3 Eos # (Auto) 0.0 Baso # (Auto) 0.0 WBC Differential Manual diff final Seg Neuts % (Manual) 46 Band Neuts % (Manual) 45 H Lymphocytes % (Manual) 5 L Monocytes % (Manual) 1 Eosinophils % (Manual) 1 Metamyelocytes % (Man) 1 Myelocytes % (Man) 1 H Abs Neuts (Manual) 8.0 H Nucleated RBCs/100 WBC 1 H Differential Comment . Dohle Bodies Present H Platelet Estimate Normal Platelet Morphology Normal Basophilic Stippling Ovalocytes Keratocytes Sodium 142 Potassium 5.4 H D Chloride 109 H Carbon Dioxide 19.3 L Anion Gap 14 BUN 39 H Creatinine 1.76 H Estimated GFR 38 L POC Glucose Random Glucose 112 H Lactic Acid Calcium 7.2 L* Prot Corrected Calcium 8.1 L Phosphorus Magnesium Total Bilirubin 0.4 AST 67 H ALT 34 Alkaline Phosphatase 45 Troponin I Cancelled 0.38 H Total Protein 5.4 L Albumin 1.9 L Nasal Screen MRSA (PCR) 02/08/18 02/08/18 02/08/18 12:58 17:17 18:05 WBC RBC Hgb Hct MCV MCH MCHC RDW Plt Count MPV Prelim Diff (Auto) Neut % (Auto) Lymph % (Auto) [place] % (Auto) Eos % (Auto) Baso % (Auto) Neut # (Auto) Lymph # (Auto) [place] # (Auto) Eos # (Auto) Baso # (Auto) WBC Differential Seg Neuts % (Manual) Band Neuts % (Manual) Lymphocytes % (Manual) Monocytes % (Manual) Eosinophils % (Manual) Metamyelocytes % (Man) Myelocytes % (Man) Abs Neuts (Manual) Nucleated RBCs/100 WBC Differential Comment Dohle Bodies Platelet Estimate Platelet Morphology Basophilic Stippling Ovalocytes Keratocytes Sodium Potassium Chloride Carbon Dioxide Anion Gap BUN Creatinine Estimated GFR POC Glucose 203 H Random Glucose Lactic Acid 4.3 H* 4.4 H* Calcium Prot Corrected Calcium Phosphorus Magnesium Total Bilirubin AST ALT Alkaline Phosphatase Troponin I Total Protein Albumin Nasal Screen MRSA (PCR) 02/08/18 02/08/18 02/08/18 19:29 20:00 20:10 WBC RBC Hgb Hct MCV MCH MCHC RDW Plt Count MPV Prelim Diff (Auto) Neut % (Auto) Lymph % (Auto) [place] % (Auto) Eos % (Auto) Baso % (Auto) Neut # (Auto) Lymph # (Auto) [place] # (Auto) Eos # (Auto) Baso # (Auto) WBC Differential Seg Neuts % (Manual) Band Neuts % (Manual) Lymphocytes % (Manual) Monocytes % (Manual) Eosinophils % (Manual) Metamyelocytes % (Man) Myelocytes % (Man) Abs Neuts (Manual) Nucleated RBCs/100 WBC Differential Comment Dohle Bodies Platelet Estimate Platelet Morphology Basophilic Stippling Ovalocytes Keratocytes Sodium Potassium Chloride Carbon Dioxide Anion Gap BUN Creatinine Estimated GFR POC Glucose 188 H Random Glucose Lactic Acid Calcium Prot Corrected Calcium Phosphorus Magnesium Total Bilirubin AST ALT Alkaline Phosphatase Troponin I 0.33 H Total Protein Albumin Nasal Screen MRSA (PCR) Mrsa detected 02/08/18 02/09/18 02/09/18 23:08 04:00 04:00 WBC 10.1 RBC 3.99 L Hgb 11.2 L Hct 34.3 L MCV 86.1 MCH 28.0 MCHC 32.5 RDW 21.3 H Plt Count 138 L MPV 7.6 Prelim Diff (Auto) Slide review pending Neut % (Auto) 91.7 H Lymph % (Auto) 5.0 L [place] % (Auto) 3.0 Eos % (Auto) 0.1 Baso % (Auto) 0.2 Neut # (Auto) 9.3 H Lymph # (Auto) 0.5 L [place] # (Auto) 0.3 Eos # (Auto) 0.0 Baso # (Auto) 0.0 WBC Differential Manual diff final Seg Neuts % (Manual) 24 Band Neuts % (Manual) 35 H Lymphocytes % (Manual) 9 Monocytes % (Manual) 1 Eosinophils % (Manual) Metamyelocytes % (Man) 30 H Myelocytes % (Man) 1 H Abs Neuts (Manual) 9.1 H Nucleated RBCs/100 WBC Differential Comment . Dohle Bodies Platelet Estimate Low L Platelet Morphology Normal Basophilic Stippling Faint H Ovalocytes 1+ H Keratocytes Occ H Sodium 140 Potassium 5.6 H Chloride 103 Carbon Dioxide 23.7 Anion Gap 13 BUN 50 H Creatinine 2.11 H Estimated GFR 31 L POC Glucose 235 H Random Glucose 182 H Lactic Acid Calcium 6.8 L* Prot Corrected Calcium 7.8 L Phosphorus 8.6 H Magnesium 2.2 Total Bilirubin 0.4 AST 102 H ALT 45 Alkaline Phosphatase 52 Troponin I Total Protein 5.1 L Albumin 1.5 L Nasal Screen MRSA (PCR) 02/09/18 02/09/18 09:30 11:40 WBC RBC Hgb Hct MCV MCH MCHC RDW Plt Count MPV Prelim Diff (Auto) Neut % (Auto) Lymph % (Auto) [place] % (Auto) Eos % (Auto) Baso % (Auto) Neut # (Auto) Lymph # (Auto) [place] # (Auto) Eos # (Auto) Baso # (Auto) WBC Differential Seg Neuts % (Manual) Band Neuts % (Manual) Lymphocytes % (Manual) Monocytes % (Manual) Eosinophils % (Manual) Metamyelocytes % (Man) Myelocytes % (Man) Abs Neuts (Manual) Nucleated RBCs/100 WBC Differential Comment Dohle Bodies Platelet Estimate Platelet Morphology Basophilic Stippling Ovalocytes Keratocytes Sodium Potassium Chloride Carbon Dioxide Anion Gap BUN Creatinine Estimated GFR POC Glucose 198 H Random Glucose Lactic Acid 1.9 Calcium Prot Corrected Calcium Phosphorus Magnesium Total Bilirubin AST ALT Alkaline Phosphatase Troponin I Total Protein Albumin Nasal Screen MRSA (PCR) Culture Results: Microbiology 02/08/18 06:36 Aerobic Blood Culture - Preliminary Blood - Peripheral No growth in 1 day Anaerobic Blood Culture - Preliminary S. aureus MRSA 02/08/18 06:31 Aerobic Blood Culture - Preliminary Blood - Peripheral No growth in 1 day Anaerobic Blood Culture - Preliminary No growth in 1 day 02/08/18 06:35 Urine Culture - Preliminary Catheterized Urine No growth in 24 hours 02/08/18 06:35 Streptococcus pneumoniae Antigen (M - Final Urine - Catheterized Urine Presumptive negative for streptococcus pneumoniae antigen, suggesting no current or recent infection. Infection due to Streptococcus pneumoniae cannot be ruled out since the antigen present in the sample may be below the detection limit of the test. 02/08/18 06:35 Legionella Antigen - Final Urine - Catheterized Urine Presumptive negative for Legionella pneumophila serogroup 1 antigen in urine, suggesting no recent or recurrent infection. Infection due to Legionella cannot be ruled out since other serogroups and species may cause disease, antigen may not be present in urine in early infection, and the level of antigen present in the urine may be below the detection limit of the test. Imaging Studies: Impressions Abdomen/Bladder Ultrasound 02/09/18 00:00 CONCLUSION: 1. Left renal cysts. Medications: Active Medications Generic Name Dose Route Start Last Admin Trade Name Freq PRN Reason Stop Dose Admin Albuterol 1 ampul 02/08/18 08:00 02/09/18 11:39 Duoneb Neb (Radha) NEB 1 ampul Q4HR NEB RADHA Administration Albuterol 1 ampul 02/08/18 07:33 02/08/18 11:39 Duoneb Neb (Prn) NEB 1 ampul Q2HR NEB PRN Administration WHEEZING Chlorhexidine Gluconate 3 pack 02/09/18 04:00 02/09/18 04:15 Chlorhexidine 2% Cloth TOPICAL 02/14/18 03:59 Not Given DAILY@0400 RADHA Hydrocortisone Sodium Succinate 100 mg 02/08/18 14:00 02/09/18 05:06 Solucortef Inj IV.PUSH 100 mg Q8HR RADHA Administration Norepinephrine Bitartrate 4 mg in 250 mls @ 7.5 mls/hr 02/08/18 07:13 11:35 Levophed-Dextrose 4 Mg/250 Ml Drip IV.SIG 11 mcg/min TITRATE PRN 41.25 mls/hr Per Protocol Administration Protocol 2 MCG/MIN Midazolam HCl 50 mg in 50 mls @ 2 mls/hr 02/08/18 07:29 02/08/18 19:23 Versed Inj IV.CONT Infused TITRATE PRN Titration Per Protocol Protocol 2 MG/HR Fentanyl 2,500 mcg in 250 mls @ 5 mls/hr 02/08/18 07:29 02/08/18 19:23 Fentanyl 10 Mcg/Ml Premix Drip IV.SIG 0 mcg/hr TITRATE PRN 0 mls/hr Per Protocol Titration Protocol 50 MCG/HR Azithromycin 500 mg/ Sodium 250 mls @ 250 mls/hr 02/08/18 08:00 02/09/18 08: 30 Chloride IV.SIG 250 mls/hr Q24H RADHA Administration Piperacillin/Tazobactam/Dextrose 4.5 gm in 100 mls @ 200 mls/hr 02/08/18 14: 00 02/09/18 10:43 Zosyn 4.5 Gm Premix IV.SIG Infused Q6H RAD[facility] Infusion Vancomycin HCl 1,250 mg/ 262.5 mls @ 262.5 mls/hr 02/09/18 04:00 02/09/18 05: 06 Sodium Chloride IV.SIG Infused Q24H RADHA Infusion Sodium Bicarbonate 75 meq/ 1,000 mls @ 84 mls/hr 02/08/18 17:00 02/09/18 04: 43 Dextrose IV.CONT 84 mls/hr .[id number] RADHA Administration Insulin Human Regular 0 units 02/08/18 12:00 02/09/18 11:47 Novolin R Correctional Sugar Inj SQ Not Given Q6HR RADHA Protocol Pantoprazole Sodium 40 mg 02/08/18 09:00 02/09/18 08:31 Protonix Inj IV.PUSH 40 mg DAILY RADHA Administration Objective Remarks: GENERAL: Chronically ill-appearing elderly male patient, in no acute distress. Intubated and sedated. SKIN: Pale, warm and dry. HEAD: Normocephalic. EYES: No scleral icterus. No injection or drainage. NECK: Supple, trachea midline. CARDIOVASCULAR: Regular rate and rhythm without murmurs. RESPIRATORY: Breath sounds equal bilaterally. No accessory muscle use. Vent, 60 % FiO2. GASTROINTESTINAL: Abdomen soft, non-tender, nondistended. EXTREMITIES: No cyanosis, or edema. MUSCULOSKELETAL: Decreased muscle tone. NEUROLOGICAL: Intubated and sedated Assessment/Plan - Plan Mr. 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 Patient was recommended to begin radiation therapy first and then he was planning treatment with Rituxan and Temodar. The patient was brought to the hospital for altered mental status and was intubated in the field. Recommendations: 1. Septic shock, remains intubated. Blood culture growing MRSA. Continues on antibiotics, management per dramatic coach. 2. B-cell non-Hodgkin's lymphoma, status post cranial mass resection, patient was pending the start of radiation treatment. Treatment currently on hold for acute change in status. Patient's family has elected to make him a DNR and palliative care is following. 3. Critical care management per dramatic coach. - Attending Statement The exam, history, and the medical decision-making described in the above note were completed with the assistance of the mid-level provider. I reviewed and agree with the findings presented. I attest that I had a [id number] encounter with the patient on the same day, and personally performed and documented my assessment and findings in the medical record. Patient remains on the ventilator and sedated MRSA septic shock. On antibiotics ADMINISTRATIVE SUPPORT SPECIALIST lymphoma. Radiation is pending Palliative care input noted Family has made him DNR Prognosis poor
--- NOTE | 2018-02-09 15:15 | MB ---
cc: Franklyn Bowles MD DATE: 02/08/2018 REASON FOR CONSULTATION: Respiratory failure and pulmonary management. HISTORY OF PRESENT ILLNESS: This is a 77-year-old white male with a prior history of small cell lung CA, as well as B cell lymphoma with brain lesions and prior craniotomy, was brought in from a fdc with altered mental status, hypoxia and sepsis. The patient was in respiratory distress, needed intubation and ventilator support and was hypotensive requiring pressors. The patient had a chest x-ray, which showed metastatic pulmonary nodules as well as pneumonia and the patient has been on 100% FiO2 and started on IV vancomycin, Zosyn and Zithromax. The patient is sedated and critical and assisting the ventilator, with an assist control rate of 30. Urine output has dropped. PAST MEDICAL HISTORY: Included a history of small cell lung cancer and lymphoma, B cell type with brain lesion, history of coronary artery disease, history of seizures, peripheral neuropathy. PAST SURGICAL HISTORY: Includes a craniotomy with resection of mass, cholecystectomy, lumbar laminectomy and Infuse a port placement. SOCIAL HABITS: History of smoking for over 25 years. No significant alcohol use. ALLERGIES: NONE LISTED. FAMILY HISTORY: Noncontributory. MEDICATIONS: List included: 1. Amlodipine. 2. Symbicort inhaler. 3. Albuterol inhaler. 4. Ferrous sulfate. 5. Folic acid. 6. Pravastatin. 7. Zinc. 8. Lisinopril. REVIEW OF SYSTEMS: The patient is on ventilator support. PHYSICAL EXAMINATION: GENERAL: This obese, elderly man was intubated and sedated, assisting ventilator. VITAL SIGNS: Blood pressure was 102/50, heart rate was 90, respirations were 20, temperature 97. HEENT: Head is normocephalic. Pupils reactive. Sclerae were injected. Throat few secretions. ET tube in place. NECK: Supple with no venous distention. No thyromegaly. CHEST: Distant breath sounds with coarse wheezes throughout both lung pillai. HEART: The heart sounds were regular, S1 and S2. No murmur. ABDOMEN: Obese, protuberant, nontender. Bowel sounds faint. EXTREMITIES: Decreased peripheral pulses. No edema. NEUROLOGIC: The patient is sedated. ASSESSMENT AND PLAN: 1. Severe sepsis with pneumonia. 2. Metabolic acidosis and acute kidney injury. 3. Metastatic carcinoma with multiple pulmonary nodules. 4. Small cell carcinoma of the lung. 5. 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 6. Ventilator-dependent respiratory failure. 7. Chronic obstructive pulmonary disease with emphysema. 8. Coronary artery disease. PLAN: The patient will be maintained on ventilator support. FiO2 will be reduced down to 40%. We will keep him sedated and nebulized DuoNeb solution at every 6 hours. The patient has been on hydrocortisone 100 mg IV every 8 hours. Continue with antibiotic therapy as ordered. We will monitor his general condition and decide if he needs bronchoscopy to evaluate the infiltrates further. Repeat chest x-ray has been ordered and electrolytes and IV fluids added to correct the metabolic imbalance. This condition is quite critical. We will follow and discuss the case with you, Dr. Salazar. Thank you for this consultation. V. Obdulia Bowles MD VJD/ct , 02:35 PM , 02:47 PM
[2018-02-09] MEDS: fentaNYL 10 mcg/mL Premix Drip 2,500 MCG/250 ML BAG IV.SIG PRN (16:16)
[2018-02-09 16:29] LABS: ABG PCO2 39 mmHg (38-42); ABG PO2 64 mmHG (61-120)
[2018-02-09 18:21] LABS: Creatinine,Urine Random 80 mg/dL (27-300)
--- NOTE | 2018-02-09 19:11 | P.PN ---
Subjective Interval history: Sedated and on vent support. FIO2 at 45 % today . On CPAP /10 and tolerating it. On Pressors still .Awaiting radiation therapy if stable. Physical Exam Vital signs: Vital Signs 02/08/18 19:10 02/08/18 19:20 02/08/18 19:30 Temperature Pulse Rate 107 H 108 H 108 H Respiratory Rate 20 20 20 Blood Pressure 116/65 114/61 95/58 L Pulse Oximetry 94 L 94 L 94 L 02/08/18 19:40 02/08/18 19:50 02/08/18 20:00 Temperature 99.1 F Pulse Rate 109 H 109 H 107 H Respiratory Rate 20 21 22 Blood Pressure 122/61 117/59 L 118/59 L Pulse Oximetry 94 L 94 L 95 02/08/18 20:10 02/08/18 20:20 02/08/18 20:30 Temperature Pulse Rate 109 H 111 H 110 H Respiratory Rate 22 20 21 Blood Pressure 120/59 L 113/58 L 120/58 L Pulse Oximetry 95 95 95 02/08/18 20:40 02/08/18 20:50 02/08/18 21:00 Temperature Pulse Rate 110 H 108 H 105 H Respiratory Rate 22 21 26 H Blood Pressure 116/58 L 124/60 114/57 L Pulse Oximetry 95 95 97 02/08/18 21:10 02/08/18 21:20 02/08/18 21:24 Temperature Pulse Rate 109 H 106 H 106 H Respiratory Rate 23 20 20 Blood Pressure 113/58 L 114/56 L Pulse Oximetry 94 L 95 02/08/18 21:27 02/08/18 21:30 02/08/18 21:40 Temperature Pulse Rate 107 H 104 H Respiratory Rate 19 19 19 Blood Pressure 111/58 L 111/59 L Pulse Oximetry 95 95 95 02/08/18 21:50 02/08/18 22:00 02/08/18 22:10 Temperature Pulse Rate 104 H 104 H 107 H Respiratory Rate 18 18 18 Blood Pressure 111/58 L 115/58 L 121/56 L Pulse Oximetry 96 96 96 02/08/18 22:20 02/08/18 22:30 02/08/18 22:40 Temperature Pulse Rate 108 H 108 H 106 H Respiratory Rate 19 18 18 Blood Pressure 120/60 118/56 L 114/60 Pulse Oximetry 96 96 97 02/08/18 22:50 02/08/18 23:00 02/08/18 23:10 Temperature Pulse Rate 105 H 109 H 109 H Respiratory Rate 18 18 17 Blood Pressure 117/62 127/63 121/62 Pulse Oximetry 97 96 96 02/08/18 23:20 02/08/18 23:30 02/08/18 23:40 Temperature Pulse Rate 108 H 108 H 108 H Respiratory Rate 18 18 18 Blood Pressure 122/58 L 121/58 L 128/58 L Pulse Oximetry 96 96 96 02/08/18 23:50 02/09/18 00:00 02/09/18 00:44 Temperature 99.6 F Pulse Rate 108 H 108 H 111 H Respiratory Rate 17 18 19 Blood Pressure 122/58 L 117/58 L 122/59 L Pulse Oximetry 96 96 95 02/09/18 01:00 02/09/18 01:03 02/09/18 01:04 Temperature Pulse Rate 109 H 109 H Respiratory Rate 20 18 17 Blood Pressure Pulse Oximetry 95 95 02/09/18 01:28 02/09/18 02:00 02/09/18 02:46 Temperature Pulse Rate 103 H 99 H 99 H Respiratory Rate 17 17 16 Blood Pressure 110/53 L 115/56 L Pulse Oximetry 95 96 96 02/09/18 03:00 02/09/18 03:50 02/09/18 04:00 Temperature 99.1 F Pulse Rate 100 H 98 H 97 H Respiratory Rate 16 16 16 Blood Pressure 115/55 L 103/56 L Pulse Oximetry 96 97 97 02/09/18 04:58 02/09/18 05:15 02/09/18 05:30 Temperature Pulse Rate 92 H 92 H 93 H Respiratory Rate 18 16 15 Blood Pressure 105/52 L 108/58 L Pulse Oximetry 96 96 97 02/09/18 05:45 02/09/18 06:00 02/09/18 06:15 Temperature Pulse Rate 93 H 93 H 93 H Respiratory Rate 16 15 16 Blood Pressure 112/58 L 113/53 L 113/56 L Pulse Oximetry 97 97 97 02/09/18 06:30 02/09/18 06:45 02/09/18 07:00 Temperature Pulse Rate 102 H 99 H 99 H Respiratory Rate 24 20 18 Blood Pressure 112/53 L 120/58 L 111/56 L Pulse Oximetry 93 L 96 97 02/09/18 07:15 02/09/18 07:30 02/09/18 07:45 Temperature Pulse Rate 97 H 97 H 95 H Respiratory Rate 20 17 17 Blood Pressure 109/54 L 111/57 L 102/56 L Pulse Oximetry 95 96 94 L 02/09/18 08:00 02/09/18 08:15 02/09/18 08:30 Temperature 98.8 F Pulse Rate 91 H 92 H 91 H Respiratory Rate 15 16 17 Blood Pressure 103/55 L 103/56 L 105/59 L Pulse Oximetry 98 96 95 02/09/18 08:45 02/09/18 09:00 02/09/18 09:15 Temperature Pulse Rate 88 104 H 89 Respiratory Rate 16 17 16 Blood Pressure 103/59 L 95/52 L 108/58 L Pulse Oximetry 96 95 97 02/09/18 09:27 02/09/18 09:30 02/09/18 09:46 Temperature Pulse Rate 84 88 89 Respiratory Rate 19 18 16 Blood Pressure 114/40 L 89/52 L Pulse Oximetry 96 97 02/09/18 10:00 02/09/18 10:15 02/09/18 10:30 Temperature Pulse Rate 104 H 85 86 Respiratory Rate 15 17 15 Blood Pressure 90/50 L 90/55 L 86/53 L Pulse Oximetry 97 97 94 L 02/09/18 10:45 02/09/18 11:00 02/09/18 11:15 Temperature Pulse Rate 92 H 91 H 91 H Respiratory Rate 15 15 15 Blood Pressure 93/55 L 86/52 L 84/49 L Pulse Oximetry 96 96 95 02/09/18 11:27 02/09/18 11:34 02/09/18 11:40 Temperature Pulse Rate 108 H 104 H Respiratory Rate 25 H 22 18 Blood Pressure 91/60 L Pulse Oximetry 98 96 02/09/18 11:45 02/09/18 12:00 02/09/18 12:15 Temperature 98.6 F Pulse Rate 101 H 95 H 97 H Respiratory Rate 17 16 17 Blood Pressure 96/58 L 92/52 L 95/52 L Pulse Oximetry 91 L 91 L 91 L 02/09/18 12:30 02/09/18 12:45 02/09/18 13:00 Temperature Pulse Rate 96 H 95 H 96 H Respiratory Rate 16 15 15 Blood Pressure 99/58 L 101/56 L 94/50 L Pulse Oximetry 92 L 92 L 93 L 02/09/18 13:15 02/09/18 13:30 02/09/18 13:45 Temperature Pulse Rate 96 H 96 H 92 H Respiratory Rate 18 19 20 Blood Pressure 95/52 L 98/55 L 101/57 L Pulse Oximetry 93 L 93 L 93 L 02/09/18 14:00 02/09/18 14:15 02/09/18 14:22 Temperature Pulse Rate 95 H 92 H 93 H Respiratory Rate 18 14 16 Blood Pressure 111/56 L 106/53 L Pulse Oximetry 93 L 93 L 02/09/18 14:30 02/09/18 14:45 02/09/18 14:56 Temperature Pulse Rate 93 H 93 H Respiratory Rate 13 18 13 Blood Pressure 100/54 L 109/57 L Pulse Oximetry 93 L 92 L 02/09/18 15:00 02/09/18 15:15 02/09/18 15:30 Temperature Pulse Rate 93 H 93 H 94 H Respiratory Rate 15 15 20 Blood Pressure 101/56 L 113/58 L 99/62 L Pulse Oximetry 92 L 92 L 92 L 02/09/18 15:45 02/09/18 16:00 02/09/18 16:19 Temperature 100.1 F H Pulse Rate 95 H 146 H 108 H Respiratory Rate 16 28 H 23 Blood Pressure 103/59 L 89/53 L 85/55 L Pulse Oximetry 92 L 83 L 91 L 02/09/18 18:00 Temperature Pulse Rate 103 H Respiratory Rate Blood Pressure Pulse Oximetry Intake & Output 02/09/18 02/09/18 02/10/18 06:59 18:59 06:59 Intake Total 7162.5 / 7162.5 1372 / 1372 Output Total 200 / 200 175 / 175 Balance 6962.5 / 6962.5 1197 / 1197 Weight 101.4 kg Intake: IV 7162.5 / 7162.5 1350 / 1350 Versed Inj 50 mg In 50 ml @ 2 50 / 50 MG/HR 2 mls/hr IV.CONT TITRATE PRN Rx#:[id number] Sodium Bicarbonate 8.4% Inj 75 2000 / 2000 1000 / 1000 MEQ In D5W Inj 925 ML @ 84 mls/ hr IV.CONT .[id number] [facility] Rx#: [id number] Azithromycin Inj 500 MG In NS 250 / 250 Inj 250 ML @ 250 mls/hr IV.SIG Q24H [facility] Rx#:[id number] Levophed-Dextrose 4 mg/250 ml 250 / 250 250 / 250 Drip 4 mg In 250 ml @ 2 MCG/MIN 7.5 mls/hr IV.SIG TITRATE PRN Rx#:[id number] Zosyn 4.5 GM Premix 4.5 gm In 300 / 300 100 / 100 100 ml @ 200 mls/hr IV.SIG Q6H [facility] Rx#:[id number] NS Inj 1,000 ML @ 1000 mls/hr 3000 / 3000 IV.SIG BOLUS [facility] Rx#:[id number] Vancomycin Inj 1,250 MG In NS 262.5 / 262.5 Inj 250 ML @ 262.5 mls/hr IV. SIG Q24H [facility] Rx#:[id number] Tube Feeding Output: Urine 200 / 200 Urine Amount (Catheter) 175 / 175 Indwelling Urethral Catheter 175 / 175 Other: Date of Last Bowel Movement 02/09/18 # Bowel Movements 1 # Incontinent Bowel Movements 4 1 GENERAL: Elderly W/M intubated SKIN: Warm and dry. HEAD: Atraumatic. Normocephalic. EYES: Pupils equal and round. No scleral icterus. No injection or drainage. ENT: No nasal bleeding or discharge. Mucous membranes pink and moist. NECK: Trachea midline. No JVD. CARDIOVASCULAR: Regular rate and rhythm. RESPIRATORY: No accessory muscle use.Few coarse wheezes. Breath sounds equal bilaterally. GASTROINTESTINAL: Abdomen soft, nondistended. Hepatic and splenic margins not palpable. MUSCULOSKELETAL: Extremities without clubbing, cyanosis, or edema. No obvious deformities. NEUROLOGICAL:sedated and on Vent support. PSYCHIATRIC: Appropriate mood and affect .insight and judgment normal. - Urinary Catheter Management Indwelling Urethral Catheter Cath placed during this visit: yes Reason for continuing: Chronic Urinary Retention Insertion date: 02/08/18 Insertion time: 06:32 Results - Labs CBC & Chem 7: 02/09/18 04:00 02/09/18 16:15 Laboratory Results - last 24 hr 02/08/18 02/08/18 02/08/18 19:29 20:00 20:10 WBC RBC Hgb Hct MCV MCH MCHC RDW Plt Count MPV Prelim Diff (Auto) Neut % (Auto) Lymph % (Auto) [place] % (Auto) Eos % (Auto) Baso % (Auto) Neut # (Auto) Lymph # (Auto) [place] # (Auto) Eos # (Auto) Baso # (Auto) WBC Differential Seg Neuts % (Manual) Band Neuts % (Manual) Lymphocytes % (Manual) Monocytes % (Manual) Metamyelocytes % (Man) Myelocytes % (Man) Abs Neuts (Manual) Differential Comment Platelet Estimate Platelet Morphology Basophilic Stippling Ovalocytes Keratocytes Puncture Site Patient Temperature O2 Saturation ABG pH ABG pCO2 ABG pO2 ABG HCO3 ABG O2 Content ABG Base Excess ABG Methemoglobin Rob Test Hemoglobin Carboxyhemoglobin O2 Delivery Device Vent Setting Inspired O2 Critical Value Sodium Potassium Chloride Carbon Dioxide Anion Gap BUN Creatinine Estimated GFR POC Glucose 188 H Random Glucose Lactic Acid Calcium Prot Corrected Calcium Phosphorus Magnesium Total Bilirubin AST ALT Alkaline Phosphatase Troponin I 0.33 H Total Protein Albumin Ur Random Creatinine Ur Random Sodium Nasal Screen MRSA (PCR) Mrsa detected 02/08/18 02/09/18 02/09/18 23:08 04:00 04:00 WBC 10.1 RBC 3.99 L Hgb 11.2 L Hct 34.3 L MCV 86.1 MCH 28.0 MCHC 32.5 RDW 21.3 H Plt Count 138 L MPV 7.6 Prelim Diff (Auto) Slide review pending Neut % (Auto) 91.7 H Lymph % (Auto) 5.0 L [place] % (Auto) 3.0 Eos % (Auto) 0.1 Baso % (Auto) 0.2 Neut # (Auto) 9.3 H Lymph # (Auto) 0.5 L [place] # (Auto) 0.3 Eos # (Auto) 0.0 Baso # (Auto) 0.0 WBC Differential Manual diff final Seg Neuts % (Manual) 24 Band Neuts % (Manual) 35 H Lymphocytes % (Manual) 9 Monocytes % (Manual) 1 Metamyelocytes % (Man) 30 H Myelocytes % (Man) 1 H Abs Neuts (Manual) 9.1 H Differential Comment . Platelet Estimate Low L Platelet Morphology Normal Basophilic Stippling Faint H Ovalocytes 1+ H Keratocytes Occ H Puncture Site Patient Temperature O2 Saturation ABG pH ABG pCO2 ABG pO2 ABG HCO3 ABG O2 Content ABG Base Excess ABG Methemoglobin Rob Test Hemoglobin Carboxyhemoglobin O2 Delivery Device Vent Setting Inspired O2 Critical Value Sodium 140 Potassium 5.6 H Chloride 103 Carbon Dioxide 23.7 Anion Gap 13 BUN 50 H Creatinine 2.11 H Estimated GFR 31 L POC Glucose 235 H Random Glucose 182 H Lactic Acid Calcium 6.8 L* Prot Corrected Calcium 7.8 L Phosphorus 8.6 H Magnesium 2.2 Total Bilirubin 0.4 AST 102 H ALT 45 Alkaline Phosphatase 52 Troponin I Total Protein 5.1 L Albumin 1.5 L Ur Random Creatinine Ur Random Sodium Nasal Screen MRSA (PCR) 02/09/18 02/09/18 02/09/18 09:30 11:40 12:15 WBC RBC Hgb Hct MCV MCH MCHC RDW Plt Count MPV Prelim Diff (Auto) Neut % (Auto) Lymph % (Auto) [place] % (Auto) Eos % (Auto) Baso % (Auto) Neut # (Auto) Lymph # (Auto) [place] # (Auto) Eos # (Auto) Baso # (Auto) WBC Differential Seg Neuts % (Manual) Band Neuts % (Manual) Lymphocytes % (Manual) Monocytes % (Manual) Metamyelocytes % (Man) Myelocytes % (Man) Abs Neuts (Manual) Differential Comment Platelet Estimate Platelet Morphology Basophilic Stippling Ovalocytes Keratocytes Puncture Site Patient Temperature O2 Saturation ABG pH ABG pCO2 ABG pO2 ABG HCO3 ABG O2 Content ABG Base Excess ABG Methemoglobin Rob Test Hemoglobin Carboxyhemoglobin O2 Delivery Device Vent Setting Inspired O2 Critical Value Sodium Potassium Chloride Carbon Dioxide Anion Gap BUN Creatinine Estimated GFR POC Glucose 198 H Random Glucose Lactic Acid 1.9 Calcium Prot Corrected Calcium Phosphorus Magnesium Total Bilirubin AST ALT Alkaline Phosphatase Troponin I Total Protein Albumin Ur Random Creatinine Ur Random Sodium Cancelled Nasal Screen MRSA (PCR) 02/09/18 02/09/18 02/09/18 12:15 16:15 16:20 WBC RBC Hgb Hct MCV MCH MCHC RDW Plt Count MPV Prelim Diff (Auto) Neut % (Auto) Lymph % (Auto) [place] % (Auto) Eos % (Auto) Baso % (Auto) Neut # (Auto) Lymph # (Auto) [place] # (Auto) Eos # (Auto) Baso # (Auto) WBC Differential Seg Neuts % (Manual) Band Neuts % (Manual) Lymphocytes % (Manual) Monocytes % (Manual) Metamyelocytes % (Man) Myelocytes % (Man) Abs Neuts (Manual) Differential Comment Platelet Estimate Platelet Morphology Basophilic Stippling Ovalocytes Keratocytes Puncture Site Right radial Patient Temperature 98.6 O2 Saturation 90 ABG pH 7.36 L ABG pCO2 39 ABG pO2 64 ABG HCO3 22 ABG O2 Content 13.4 ABG Base Excess -3.0 L ABG Methemoglobin 1.4 Rob Test Present Hemoglobin 10.5 L Carboxyhemoglobin 1.1 O2 Delivery Device Ventilator Vent Setting [id number] Inspired O2 50 Critical Value No Sodium Potassium 4.9 Chloride Carbon Dioxide Anion Gap BUN Creatinine Estimated GFR POC Glucose Random Glucose Lactic Acid Calcium Prot Corrected Calcium Phosphorus Magnesium Total Bilirubin AST ALT Alkaline Phosphatase Troponin I Total Protein Albumin Ur Random Creatinine 80 Ur Random Sodium 13 Nasal Screen MRSA (PCR) 02/09/18 17:38 WBC RBC Hgb Hct MCV MCH MCHC RDW Plt Count MPV Prelim Diff (Auto) Neut % (Auto) Lymph % (Auto) [place] % (Auto) Eos % (Auto) Baso % (Auto) Neut # (Auto) Lymph # (Auto) [place] # (Auto) Eos # (Auto) Baso # (Auto) WBC Differential Seg Neuts % (Manual) Band Neuts % (Manual) Lymphocytes % (Manual) Monocytes % (Manual) Metamyelocytes % (Man) Myelocytes % (Man) Abs Neuts (Manual) Differential Comment Platelet Estimate Platelet Morphology Basophilic Stippling Ovalocytes Keratocytes Puncture Site Patient Temperature O2 Saturation ABG pH ABG pCO2 ABG pO2 ABG HCO3 ABG O2 Content ABG Base Excess ABG Methemoglobin Rob Test Hemoglobin Carboxyhemoglobin O2 Delivery Device Vent Setting Inspired O2 Critical Value Sodium Potassium Chloride Carbon Dioxide Anion Gap BUN Creatinine Estimated GFR POC Glucose 171 H Random Glucose Lactic Acid Calcium Prot Corrected Calcium Phosphorus Magnesium Total Bilirubin AST ALT Alkaline Phosphatase Troponin I Total Protein Albumin Ur Random Creatinine Ur Random Sodium Nasal Screen MRSA (PCR) Microbiology 02/08/18 06:36 Blood - Peripheral Aerobic Blood Culture - Preliminary No growth in 1 day 02/08/18 06:36 Blood - Peripheral Anaerobic Blood Culture - Preliminary S. aureus MRSA 02/08/18 06:31 Blood - Peripheral Aerobic Blood Culture - Preliminary No growth in 1 day 02/08/18 06:31 Blood - Peripheral Anaerobic Blood Culture - Preliminary No growth in 1 day 02/08/18 06:35 Catheterized Urine Urine Culture - Preliminary No growth in 24 hours - Imaging Impressions Abdomen/Bladder Ultrasound 02/09/18 00:00 CONCLUSION: 1. Left renal cysts. Assessment and Plan - Assessment (1) Brain tumor Code(s): D49.6 - Neoplasm of unspecified behavior of brain Status: Acute (2) Dementia Code(s): F03.90 - Unspecified dementia without behavioral disturbance Status: Acute (3) Cranial irradiation Status: Acute (4) COPD (chronic obstructive pulmonary disease) Code(s): J44.9 - Chronic obstructive pulmonary disease, unspecified Status: Acute (5) Pain Code(s): R52 - Pain, unspecified Status: Acute (6) Anxiety Code(s): F41.9 - Anxiety disorder, unspecified Status: Acute (7) Debility Code(s): R53.81 - Other malaise Status: Acute (8) Sepsis associated hypotension Code(s): A41.9 - Sepsis, unspecified organism; I95.9 - Hypotension, unspecified Status: Acute - Plan 1. Will wean vent to CPAP again in am and FIo2 to 40 % 2. Continue antibiotics Zosyn/Vancomycin 3. Wean Pressors. 4. CXR ,CBC,BMP in am 5. Solucortef 100 mg IV q8H 6. Start Tube feeds at 50 CC 7. Rolf lee qid
[2018-02-09] MEDS: Piperacil/Tazo 3.375 GM Premix 50 ML IV.SIG SCH (20:44)
[2018-02-10] MEDS: Piperacil/Tazo 3.375 GM Premix 50 ML IV.SIG SCH ×4 (01:48→20:37)
--- NOTE | 2018-02-10 04:36 | XR ---
EXAM DATE: 02/10/2018 4:20 AM EST AGE/SEX: 77 years / Male INDICATIONS: Shortness of breath, possible pulmonary disease. CLINICAL DATA: This is the patient's subsequent encounter. Patient reports that signs and symptoms h ave been present for 3 days and indicates a pain score of Nonresponsive. MEDICAL/SURGICAL HISTORY: Carcinoma, lung. Chronic obstructive pulmonary disease. Anemia. Br ain mass. . Port placement. COMPARISON: [facility] [place], CHEST 1V SINGLE AP, 02/08/2018. . FINDINGS: A single AP view of the chest demonstrates patchy areas of parenchymal consolidation scattered throug hout both lungs. There has been improvement from the prior study. Small right effusion. Heart is at t he upper limits of normal in terms of size. Tip of the endotracheal tube 2 cm from the chio. [place] stric tube coiled in the stomach. Port-A-Cath overlies the right chest. CONCLUSION: Improving bilateral pulmonary infiltrates. Stable small right effusion. Electronically signed by: Maninder Bergman MD 02/10/2018 4:35 AM EST
[2018-02-10] MEDS: Sodium Bicarbonate 8.4% Inj 75 MEQ in Dextrose 5% in Water Inj 925 ML IV.CONT SCH ×4 (04:55→16:24)
[2018-02-10] MEDS: Chlorhexidine Gluconate 2% 1 Pack (2 Cloths) TOPICAL SCH (04:55)
[2018-02-10] MEDS: Insulin NovoLIN Regular Correctional Sugar Inj SQ SCH ×4 (05:30→23:51)
[2018-02-10] MEDS: Hydrocortisone Sod Succinate 100 MG Vial IV.PUSH SCH ×3 (05:30→21:15)
[2018-02-10 06:48] LABS: Baso % (Auto) 0.3 % (0.0-2.0); Eos % (Auto) 0.1 % (0.0-4.0); Hematocrit 28.9 % (39.0-51.0); Hemoglobin 9.7 gm/dL (13.0-17.0); Lymph # (Auto) 0.3 th/mm3 (1.0-4.8); Lymph % (Auto) 10.4 % (9.0-44.0); Mean Corpuscular HGB Conc 33.7 % (32.0-36.0); Mean Corpuscular Hemoglobin 28.4 pg (27.0-34.0); Mean Corpuscular Volume 84.4 fL (80.0-100.0); Mean Platelet Volume 7.5 fL (7.0-11.0); Mono # (Auto) 0.1 th/mm3 (0.0-0.9); Mono % (Auto) 2.9 % (0.0-8.0); Neut # (Auto) 2.8 th/mm3 (1.8-7.7); Neut % (Auto) 86.3 % (16.0-70.0); Platelet Count 93 th/mm3 (150-450); Red Blood Count 3.42 mil/mm3 (4.50-5.90); Red Cell Distribution Width 21.3 % (11.6-17.2); White Blood Count 3.3 th/mm3 (4.0-11.0)
[2018-02-10 07:24] LABS: Albumin 1.3 g/dL (3.4-5.0); Carbon Dioxide 24.2 meq/L (21.0-32.0); Phosphorus 8.7 mg/dL (2.5-4.9); Potassium 3.8 meq/L (3.5-5.1); Total Protein 4.9 g/dL (6.4-8.2); Vancomycin,Random 19.7 Comment
[2018-02-10] MEDS: Azithromycin Inj 500 MG in Sodium Chlor 0.9% Inj 250 ML IV.SIG SCH (07:54)
[2018-02-10 08:28] LABS: Lymphocytes 15 % (9-44); Monocytes 6 % (0-8); Tallied Nucleated RBC 3 (0-0)
[2018-02-10 08:29] LABS: Platelet Morphology Normal (Normal)
[2018-02-10] MEDS: Pantoprazole Inj 40 MG Vial IV.PUSH SCH (08:29)
[2018-02-10 08:30] LABS: Ovalocytes 1+
--- NOTE | 2018-02-10 09:54 | P.PNNP ---
Subjective Interval history: remains intubated, sedated Physical Exam Vital signs: Vital Signs 02/09/18 10:00 02/09/18 10:15 02/09/18 10:30 Temperature Pulse Rate 104 H 85 86 Respiratory Rate 15 17 15 Blood Pressure 90/50 L 90/55 L 86/53 L Pulse Oximetry 97 97 94 L 02/09/18 10:45 02/09/18 11:00 02/09/18 11:15 Temperature Pulse Rate 92 H 91 H 91 H Respiratory Rate 15 15 15 Blood Pressure 93/55 L 86/52 L 84/49 L Pulse Oximetry 96 96 95 02/09/18 11:27 02/09/18 11:34 02/09/18 11:40 Temperature Pulse Rate 108 H 104 H Respiratory Rate 25 H 22 18 Blood Pressure 91/60 L Pulse Oximetry 98 96 02/09/18 11:45 02/09/18 12:00 02/09/18 12:15 Temperature 98.6 F Pulse Rate 101 H 95 H 97 H Respiratory Rate 17 16 17 Blood Pressure 96/58 L 92/52 L 95/52 L Pulse Oximetry 91 L 91 L 91 L 02/09/18 12:30 02/09/18 12:45 02/09/18 13:00 Temperature Pulse Rate 96 H 95 H 96 H Respiratory Rate 16 15 15 Blood Pressure 99/58 L 101/56 L 94/50 L Pulse Oximetry 92 L 92 L 93 L 02/09/18 13:15 02/09/18 13:30 02/09/18 13:45 Temperature Pulse Rate 96 H 96 H 92 H Respiratory Rate 18 19 20 Blood Pressure 95/52 L 98/55 L 101/57 L Pulse Oximetry 93 L 93 L 93 L 02/09/18 14:00 02/09/18 14:15 02/09/18 14:22 Temperature Pulse Rate 95 H 92 H 93 H Respiratory Rate 18 14 16 Blood Pressure 111/56 L 106/53 L Pulse Oximetry 93 L 93 L 02/09/18 14:30 02/09/18 14:45 02/09/18 14:56 Temperature Pulse Rate 93 H 93 H Respiratory Rate 13 18 13 Blood Pressure 100/54 L 109/57 L Pulse Oximetry 93 L 92 L 02/09/18 15:00 02/09/18 15:15 02/09/18 15:30 Temperature Pulse Rate 93 H 93 H 94 H Respiratory Rate 15 15 20 Blood Pressure 101/56 L 113/58 L 99/62 L Pulse Oximetry 92 L 92 L 92 L 02/09/18 15:45 02/09/18 16:00 02/09/18 16:19 Temperature 100.1 F H Pulse Rate 95 H 146 H 108 H Respiratory Rate 16 28 H 23 Blood Pressure 103/59 L 89/53 L 85/55 L Pulse Oximetry 92 L 83 L 91 L 02/09/18 16:33 02/09/18 16:38 02/09/18 16:39 Temperature Pulse Rate 100 H 97 H 102 H Respiratory Rate 22 23 21 Blood Pressure 132/96 H 75/41 L 77/45 L Pulse Oximetry 92 L 92 L 92 L 02/09/18 16:42 02/09/18 16:45 02/09/18 16:51 Temperature Pulse Rate 92 H 96 H 96 H Respiratory Rate 20 19 20 Blood Pressure 112/59 L 134/90 77/50 L Pulse Oximetry 95 95 95 02/09/18 16:52 02/09/18 17:00 02/09/18 17:15 Temperature Pulse Rate 95 H 92 H 97 H Respiratory Rate 19 19 20 Blood Pressure 89/54 L 104/52 L 99/54 L Pulse Oximetry 94 L 94 L 95 02/09/18 17:30 02/09/18 17:46 02/09/18 18:00 Temperature Pulse Rate 94 H 102 H 103 H Respiratory Rate 16 16 16 Blood Pressure 144/99 H 83/58 L 95/50 L Pulse Oximetry 94 L 95 94 L 02/09/18 18:15 02/09/18 18:30 02/09/18 18:45 Temperature Pulse Rate 100 H 99 H 102 H Respiratory Rate 16 16 14 Blood Pressure 95/52 L 98/50 L 92/50 L Pulse Oximetry 93 L 94 L 94 L 02/09/18 19:00 02/09/18 19:15 02/09/18 19:30 Temperature Pulse Rate 99 H 97 H 96 H Respiratory Rate 14 14 14 Blood Pressure 92/50 L 94/55 L 84/52 L Pulse Oximetry 94 L 93 L 93 L 02/09/18 19:45 02/09/18 20:00 02/09/18 20:15 Temperature 99.1 F Pulse Rate 90 94 H 92 H Respiratory Rate 14 19 15 Blood Pressure 85/53 L 84/53 L 90/50 L Pulse Oximetry 93 L 93 L 91 L 02/09/18 20:30 02/09/18 20:41 02/09/18 20:45 Temperature Pulse Rate 87 81 82 Respiratory Rate 13 13 13 Blood Pressure 81/43 L 86/50 L 78/43 L Pulse Oximetry 95 96 96 02/09/18 20:46 02/09/18 20:56 02/09/18 21:00 Temperature Pulse Rate 85 73 77 Respiratory Rate 12 13 13 Blood Pressure 75/42 L 112/57 L 99/49 L Pulse Oximetry 96 97 97 02/09/18 21:15 02/09/18 21:30 02/09/18 21:45 Temperature Pulse Rate 77 78 77 Respiratory Rate 13 13 13 Blood Pressure 93/55 L 91/54 L 93/52 L Pulse Oximetry 98 98 98 02/09/18 22:00 02/09/18 22:15 02/09/18 22:30 Temperature Pulse Rate 77 76 77 Respiratory Rate 14 13 13 Blood Pressure 99/56 L 101/55 L 99/56 L Pulse Oximetry 98 98 98 02/09/18 22:45 02/09/18 23:00 02/09/18 23:15 Temperature Pulse Rate 75 80 78 Respiratory Rate 13 14 14 Blood Pressure 101/51 L 119/63 108/57 L Pulse Oximetry 98 97 98 02/09/18 23:29 02/09/18 23:30 02/09/18 23:45 Temperature Pulse Rate 80 79 75 Respiratory Rate 12 13 13 Blood Pressure 106/58 L 100/56 L Pulse Oximetry 97 96 96 02/10/18 00:00 02/10/18 00:15 02/10/18 00:30 Temperature 99.0 F Pulse Rate 74 77 77 Respiratory Rate 13 13 14 Blood Pressure 98/53 L 105/53 L 116/54 L Pulse Oximetry 96 96 96 02/10/18 00:45 02/10/18 01:00 02/10/18 01:17 Temperature Pulse Rate 78 79 95 H Respiratory Rate 13 13 22 Blood Pressure 108/56 L 113/57 L 162/70 H Pulse Oximetry 97 97 94 L 02/10/18 02:00 02/10/18 02:36 02/10/18 02:45 Temperature Pulse Rate 85 84 83 Respiratory Rate 12 12 11 L Blood Pressure 103/58 L 104/57 L Pulse Oximetry 96 97 97 02/10/18 03:00 02/10/18 03:11 02/10/18 03:15 Temperature Pulse Rate 79 82 78 Respiratory Rate 11 L 14 10 L Blood Pressure 93/55 L 100/55 L Pulse Oximetry 96 02/10/18 03:30 02/10/18 03:45 02/10/18 04:00 Temperature 99 F Pulse Rate 79 83 83 Respiratory Rate 11 L 12 12 Blood Pressure 103/57 L 97/56 L 101/52 L Pulse Oximetry 95 95 95 02/10/18 04:15 02/10/18 04:17 02/10/18 04:30 Temperature Pulse Rate 79 78 Respiratory Rate 10 L 15 11 L Blood Pressure 86/53 L 96/54 L Pulse Oximetry 95 96 96 02/10/18 04:45 02/10/18 05:00 02/10/18 05:15 Temperature Pulse Rate 80 75 72 Respiratory Rate 12 12 13 Blood Pressure 97/52 L 94/50 L 96/54 L Pulse Oximetry 96 96 96 02/10/18 05:30 02/10/18 05:46 02/10/18 06:00 Temperature Pulse Rate 78 80 74 Respiratory Rate 12 11 L 11 L Blood Pressure 103/59 L 117/63 96/51 L Pulse Oximetry 95 96 95 02/10/18 06:15 02/10/18 06:30 02/10/18 06:45 Temperature Pulse Rate 78 75 71 Respiratory Rate 11 L 16 12 Blood Pressure 105/58 L 106/55 L 98/53 L Pulse Oximetry 96 96 96 02/10/18 07:00 02/10/18 07:15 02/10/18 07:21 Temperature Pulse Rate 70 75 75 Respiratory Rate 14 12 10 L Blood Pressure 96/53 L 97/60 L Pulse Oximetry 96 95 97 02/10/18 07:30 02/10/18 07:45 02/10/18 08:00 Temperature 96.6 F L Pulse Rate 74 75 73 Respiratory Rate 9 L 9 L 9 L Blood Pressure 122/57 L 114/54 L 106/60 Pulse Oximetry 95 95 96 02/10/18 08:15 02/10/18 08:31 02/10/18 08:46 Temperature Pulse Rate 78 73 85 Respiratory Rate 9 L 10 L 13 Blood Pressure 101/57 L 146/92 H 121/60 Pulse Oximetry 95 97 87 L 02/10/18 09:00 02/10/18 09:15 Temperature Pulse Rate 85 85 Respiratory Rate 12 11 L Blood Pressure 130/60 104/58 L Pulse Oximetry 90 L 89 L Intake & Output 02/09/18 02/10/18 02/10/18 18:59 06:59 18:59 Intake Total 1622 / 1622 2043 / 2043 Output Total 175 / 175 200 / 200 Balance 1447 / 1447 1843 / 1843 Weight 102.6 kg Intake: IV 1600 / 1600 1700 / 1700 Sodium Bicarbonate 8.4% Inj 75 1000 / 1000 1000 / 1000 MEQ In D5W Inj 925 ML @ 84 mls/ hr IV.CONT .[id number] [facility] Rx#: [id number] Azithromycin Inj 500 MG In NS 250 / 250 Inj 250 ML @ 250 mls/hr IV.SIG Q24H [facility] Rx#:[id number] Levophed-Dextrose 4 mg/250 ml 500 / 500 250 / 250 Drip 4 mg In 250 ml @ 2 MCG/MIN 7.5 mls/hr IV.SIG TITRATE PRN Rx#:[id number] Zosyn 3.375 GM Premix 50 ML @ 100 / 100 100 mls/hr IV.SIG Q6H [facility] Rx#: [id number] Zosyn 4.5 GM Premix 4.5 gm In 100 / 100 100 / 100 100 ml @ 200 mls/hr IV.SIG Q6H [facility] Rx#:[id number] Tube Feeding 343 / 343 Output: Urine Amount (Catheter) 175 / 175 200 / 200 Indwelling Urethral Catheter 175 / 175 200 / 200 Other: Date of Last Bowel Movement 02/09/18 02/09/18 # Bowel Movements 1 # Incontinent Bowel Movements 1 3 - Constitutional no acute distress - Routine HEENT Exam Head: Present: normocephalic - Routine Neck Exam Present: supple - Routine Respiratory Exam Present: decreased breath sounds - Routine Cardiovascular Exam Present: RRR - Routine Abdominal Exam Present: soft - Routine Skin Exam Present: intact - Urinary Catheter Management Indwelling Urethral Catheter Cath placed during this visit: yes Reason for continuing: Acute urinary retention Insertion date: 02/08/18 Insertion time: 06:32 Assessment and Plan - Assessment (1) ANTHONY (acute kidney injury) Code(s): N17.9 - Acute kidney failure, unspecified Status: Acute Plan: ANTHONY with ATN Discussed with critical care and with family - extensive comorbidites and underlying lymphoma. Minimal UOP at this time. Plan is for withdrawal of care. Will sign off for now, please call if necessary. (2) Septic shock Code(s): A41.9 - Sepsis, unspecified organism; R65.21 - Severe sepsis with septic shock Status: Acute (3) Lactic acidosis Code(s): E87.2 - Acidosis Status: Acute (4) Large B-cell lymphoma Code(s): C85.10 - Unspecified B-cell lymphoma, unspecified site Status: Acute
[2018-02-10] MEDS ORDERED: Calcium Chloride Inj 1 GM in Sodium Chlor 0.9% Inj 100 ML IV.SIG ONE (10:00)
--- NOTE | 2018-02-10 10:02 | P.PNCC ---
Subjective Subjective Remarks/Hospital Course: The patient is a 77-year-old male with past medical history of small cell lung cancer, large B cell lymphoma, COPD, who presented to [facility] ED via EMS for hypoxemia and altered mental status. The patient reportedly had O2 saturation in the 70s on 2 liters nasal cannula and also was hypotensive. He was intubated and placed on mechanical ventilation. Upon arrival to the ED, he had a low-grade fever with temperature of 100.2 and initial blood pressure of 110/74. Then, the patient became hypotensive with a systolic blood pressure in the 70s. His laboratory data showed mild acute kidney injury with creatinine level 1.36 and lactic acidosis with lactic acid level of 4.6. Initial ABG post-intubation showed a pH of 7.30, CO2 45, pO2 of 58, bicarbonate of 21, and sat 84% on assist control ventilation with rate of 16, tidal volume 550, PEEP of 5 and 100% FiO2. A repeat ABG was performed at 11:52 which showed a pH of 7.27 with CO2 38, PaO2 of 72 and a bicarbonate of 17. In the ER, he was given approximately 4 liters of crystalloids along with vancomycin and Zosyn. Due to altered mental status, CT scan of the brain was obtained which showed postsurgical features of right posterior temporal craniotomy and resection of a mass in the right temporal occipital area. No evidence of mass effect, midline shift, or definite hemorrhage. He also underwent CT angiogram of the chest which showed no evidence of pulmonary embolism; however, it showed dense left upper lobe airspace consolidation patchy nodular airspace opacities in left upper lobe and multiple right upper lobe nodules. He was started on Levophed. The patient underwent right craniotomy with resection of tumor as stated above with biopsy results consistent with large B cell lymphoma. He is being followed by Dr. Brand from Oncology. 02/09 [place] remains sedated and intubated. On Levophed 7 mics. Made no code DNR yesterday. Afebrile. Renal function worse today with Cr: 2.0 from 1.36 on arrival. SUBJECTIVE 02/10: T-max 100.1. Currently afebrile. Jo on norepinephrine drip at 6 mg/ min and phenylephrine drip at 30 mcg/min.. Healthcare proxy requested withdrawal of care. Will discuss with oncology during rounds. Worsening renal failure noted Objective Vital Signs / I&O: Vital Signs 02/09/18 10:00 02/09/18 10:15 02/09/18 10:30 Temperature Pulse Rate 104 H 85 86 Respiratory Rate 15 17 15 Blood Pressure 90/50 L 90/55 L 86/53 L Pulse Oximetry 97 97 94 L 02/09/18 10:45 02/09/18 11:00 02/09/18 11:15 Temperature Pulse Rate 92 H 91 H 91 H Respiratory Rate 15 15 15 Blood Pressure 93/55 L 86/52 L 84/49 L Pulse Oximetry 96 96 95 02/09/18 11:27 02/09/18 11:34 02/09/18 11:40 Temperature Pulse Rate 108 H 104 H Respiratory Rate 25 H 22 18 Blood Pressure 91/60 L Pulse Oximetry 98 96 02/09/18 11:45 02/09/18 12:00 02/09/18 12:15 Temperature 98.6 F Pulse Rate 101 H 95 H 97 H Respiratory Rate 17 16 17 Blood Pressure 96/58 L 92/52 L 95/52 L Pulse Oximetry 91 L 91 L 91 L 02/09/18 12:30 02/09/18 12:45 02/09/18 13:00 Temperature Pulse Rate 96 H 95 H 96 H Respiratory Rate 16 15 15 Blood Pressure 99/58 L 101/56 L 94/50 L Pulse Oximetry 92 L 92 L 93 L 02/09/18 13:15 02/09/18 13:30 02/09/18 13:45 Temperature Pulse Rate 96 H 96 H 92 H Respiratory Rate 18 19 20 Blood Pressure 95/52 L 98/55 L 101/57 L Pulse Oximetry 93 L 93 L 93 L 02/09/18 14:00 02/09/18 14:15 02/09/18 14:22 Temperature Pulse Rate 95 H 92 H 93 H Respiratory Rate 18 14 16 Blood Pressure 111/56 L 106/53 L Pulse Oximetry 93 L 93 L 02/09/18 14:30 02/09/18 14:45 02/09/18 14:56 Temperature Pulse Rate 93 H 93 H Respiratory Rate 13 18 13 Blood Pressure 100/54 L 109/57 L Pulse Oximetry 93 L 92 L 02/09/18 15:00 02/09/18 15:15 02/09/18 15:30 Temperature Pulse Rate 93 H 93 H 94 H Respiratory Rate 15 15 20 Blood Pressure 101/56 L 113/58 L 99/62 L Pulse Oximetry 92 L 92 L 92 L 02/09/18 15:45 02/09/18 16:00 02/09/18 16:19 Temperature 100.1 F H Pulse Rate 95 H 146 H 108 H Respiratory Rate 16 28 H 23 Blood Pressure 103/59 L 89/53 L 85/55 L Pulse Oximetry 92 L 83 L 91 L 02/09/18 16:33 02/09/18 16:38 02/09/18 16:39 Temperature Pulse Rate 100 H 97 H 102 H Respiratory Rate 22 23 21 Blood Pressure 132/96 H 75/41 L 77/45 L Pulse Oximetry 92 L 92 L 92 L 02/09/18 16:42 02/09/18 16:45 02/09/18 16:51 Temperature Pulse Rate 92 H 96 H 96 H Respiratory Rate 20 19 20 Blood Pressure 112/59 L 134/90 77/50 L Pulse Oximetry 95 95 95 02/09/18 16:52 02/09/18 17:00 02/09/18 17:15 Temperature Pulse Rate 95 H 92 H 97 H Respiratory Rate 19 19 20 Blood Pressure 89/54 L 104/52 L 99/54 L Pulse Oximetry 94 L 94 L 95 02/09/18 17:30 02/09/18 17:46 02/09/18 18:00 Temperature Pulse Rate 94 H 102 H 103 H Respiratory Rate 16 16 16 Blood Pressure 144/99 H 83/58 L 95/50 L Pulse Oximetry 94 L 95 94 L 02/09/18 18:15 02/09/18 18:30 02/09/18 18:45 Temperature Pulse Rate 100 H 99 H 102 H Respiratory Rate 16 16 14 Blood Pressure 95/52 L 98/50 L 92/50 L Pulse Oximetry 93 L 94 L 94 L 02/09/18 19:00 02/09/18 19:15 02/09/18 19:30 Temperature Pulse Rate 99 H 97 H 96 H Respiratory Rate 14 14 14 Blood Pressure 92/50 L 94/55 L 84/52 L Pulse Oximetry 94 L 93 L 93 L 02/09/18 19:45 02/09/18 20:00 02/09/18 20:15 Temperature 99.1 F Pulse Rate 90 94 H 92 H Respiratory Rate 14 19 15 Blood Pressure 85/53 L 84/53 L 90/50 L Pulse Oximetry 93 L 93 L 91 L 02/09/18 20:30 02/09/18 20:41 02/09/18 20:45 Temperature Pulse Rate 87 81 82 Respiratory Rate 13 13 13 Blood Pressure 81/43 L 86/50 L 78/43 L Pulse Oximetry 95 96 96 02/09/18 20:46 02/09/18 20:56 02/09/18 21:00 Temperature Pulse Rate 85 73 77 Respiratory Rate 12 13 13 Blood Pressure 75/42 L 112/57 L 99/49 L Pulse Oximetry 96 97 97 02/09/18 21:15 02/09/18 21:30 02/09/18 21:45 Temperature Pulse Rate 77 78 77 Respiratory Rate 13 13 13 Blood Pressure 93/55 L 91/54 L 93/52 L Pulse Oximetry 98 98 98 02/09/18 22:00 02/09/18 22:15 02/09/18 22:30 Temperature Pulse Rate 77 76 77 Respiratory Rate 14 13 13 Blood Pressure 99/56 L 101/55 L 99/56 L Pulse Oximetry 98 98 98 02/09/18 22:45 02/09/18 23:00 02/09/18 23:15 Temperature Pulse Rate 75 80 78 Respiratory Rate 13 14 14 Blood Pressure 101/51 L 119/63 108/57 L Pulse Oximetry 98 97 98 02/09/18 23:29 02/09/18 23:30 02/09/18 23:45 Temperature Pulse Rate 80 79 75 Respiratory Rate 12 13 13 Blood Pressure 106/58 L 100/56 L Pulse Oximetry 97 96 96 02/10/18 00:00 02/10/18 00:15 02/10/18 00:30 Temperature 99.0 F Pulse Rate 74 77 77 Respiratory Rate 13 13 14 Blood Pressure 98/53 L 105/53 L 116/54 L Pulse Oximetry 96 96 96 02/10/18 00:45 02/10/18 01:00 02/10/18 01:17 Temperature Pulse Rate 78 79 95 H Respiratory Rate 13 13 22 Blood Pressure 108/56 L 113/57 L 162/70 H Pulse Oximetry 97 97 94 L 02/10/18 02:00 02/10/18 02:36 02/10/18 02:45 Temperature Pulse Rate 85 84 83 Respiratory Rate 12 12 11 L Blood Pressure 103/58 L 104/57 L Pulse Oximetry 96 97 97 02/10/18 03:00 02/10/18 03:11 02/10/18 03:15 Temperature Pulse Rate 79 82 78 Respiratory Rate 11 L 14 10 L Blood Pressure 93/55 L 100/55 L Pulse Oximetry 96 02/10/18 03:30 02/10/18 03:45 02/10/18 04:00 Temperature 99 F Pulse Rate 79 83 83 Respiratory Rate 11 L 12 12 Blood Pressure 103/57 L 97/56 L 101/52 L Pulse Oximetry 95 95 95 02/10/18 04:15 02/10/18 04:17 02/10/18 04:30 Temperature Pulse Rate 79 78 Respiratory Rate 10 L 15 11 L Blood Pressure 86/53 L 96/54 L Pulse Oximetry 95 96 96 02/10/18 04:45 02/10/18 05:00 02/10/18 05:15 Temperature Pulse Rate 80 75 72 Respiratory Rate 12 12 13 Blood Pressure 97/52 L 94/50 L 96/54 L Pulse Oximetry 96 96 96 02/10/18 05:30 02/10/18 05:46 02/10/18 06:00 Temperature Pulse Rate 78 80 74 Respiratory Rate 12 11 L 11 L Blood Pressure 103/59 L 117/63 96/51 L Pulse Oximetry 95 96 95 02/10/18 06:15 02/10/18 06:30 02/10/18 06:45 Temperature Pulse Rate 78 75 71 Respiratory Rate 11 L 16 12 Blood Pressure 105/58 L 106/55 L 98/53 L Pulse Oximetry 96 96 96 02/10/18 07:00 02/10/18 07:15 02/10/18 07:21 Temperature Pulse Rate 70 75 75 Respiratory Rate 14 12 10 L Blood Pressure 96/53 L 97/60 L Pulse Oximetry 96 95 97 02/10/18 07:30 02/10/18 07:45 02/10/18 08:00 Temperature 96.6 F L Pulse Rate 74 75 73 Respiratory Rate 9 L 9 L 9 L Blood Pressure 122/57 L 114/54 L 106/60 Pulse Oximetry 95 95 96 02/10/18 08:15 02/10/18 08:31 02/10/18 08:46 Temperature Pulse Rate 78 73 85 Respiratory Rate 9 L 10 L 13 Blood Pressure 101/57 L 146/92 H 121/60 Pulse Oximetry 95 97 87 L 02/10/18 09:00 02/10/18 09:15 Temperature Pulse Rate 85 85 Respiratory Rate 12 11 L Blood Pressure 130/60 104/58 L Pulse Oximetry 90 L 89 L Intake & Output 02/09/18 02/10/18 02/10/18 18:59 06:59 18:59 Intake Total 1622 / 1622 2043 / 2043 Output Total 175 / 175 200 / 200 Balance 1447 / 1447 1843 / 1843 Weight 102.6 kg Intake: IV 1600 / 1600 1700 / 1700 Sodium Bicarbonate 8.4% Inj 75 1000 / 1000 1000 / 1000 MEQ In D5W Inj 925 ML @ 84 mls/ hr IV.CONT .[id number] [facility] Rx#: [id number] Azithromycin Inj 500 MG In NS 250 / 250 Inj 250 ML @ 250 mls/hr IV.SIG Q24H [facility] Rx#:[id number] Levophed-Dextrose 4 mg/250 ml 500 / 500 250 / 250 Drip 4 mg In 250 ml @ 2 MCG/MIN 7.5 mls/hr IV.SIG TITRATE PRN Rx#:[id number] Zosyn 3.375 GM Premix 50 ML @ 100 / 100 100 mls/hr IV.SIG Q6H [facility] Rx#: [id number] Zosyn 4.5 GM Premix 4.5 gm In 100 / 100 100 / 100 100 ml @ 200 mls/hr IV.SIG Q6H [facility] Rx#:[id number] Tube Feeding 343 / 343 Output: Urine Amount (Catheter) 175 / 175 200 / 200 Indwelling Urethral Catheter 175 / 175 200 / 200 Other: Date of Last Bowel Movement 02/09/18 02/09/18 # Bowel Movements 1 # Incontinent Bowel Movements 1 3 Result Diagrams: 02/10/18 05:15 02/10/18 05:15 Other Results: Microbiology 02/08/18 06:36 Blood - Peripheral Aerobic Blood Culture - Preliminary No growth in 1 day 02/08/18 06:36 Blood - Peripheral Anaerobic Blood Culture - Preliminary S. aureus MRSA 02/08/18 06:31 Blood - Peripheral Aerobic Blood Culture - Preliminary No growth in 1 day 02/08/18 06:31 Blood - Peripheral Anaerobic Blood Culture - Preliminary No growth in 1 day 02/08/18 06:35 Catheterized Urine Urine Culture - Preliminary No growth in 24 hours 02/08/18 06:35 Urine - Catheterized Urine Streptococcus pneumoniae Antigen ( M - Final Presumptive negative for streptococcus pneumoniae antigen, suggesting no current or recent infection. Infection due to Streptococcus pneumoniae cannot be ruled out since the antigen present in the sample may be below the detection limit of the test. 02/08/18 06:35 Urine - Catheterized Urine Legionella Antigen - Final Presumptive negative for Legionella pneumophila serogroup 1 antigen in urine, suggesting no recent or recurrent infection. Infection due to Legionella cannot be ruled out since other serogroups and species may cause disease, antigen may not be present in urine in early infection, and the level of antigen present in the urine may be below the detection limit of the test. Imaging: Chest X-Ray 02/08/18 06:22 CONCLUSION: 1. ETT in good position. NGT in the stomach. 2. Mild airspace disease in the right lower lung zone with patchy diffuse airspace consolidation throughout the left mid to lower lung zones. Differential considerations include developing lobar pneumonia versus aspiration. Head CT 02/08/18 06:43 CONCLUSION: 1. Postsurgical features of right posterior temporal craniotomy and resection of mass in the right temporooccipital low convexities with evidence for recurrent/residual disease similar to previous MRI exam. 2. No increased mass effect, midline shift or definitive hemorrhage. . Chest CTA 02/08/18 07:13 CONCLUSION: 1. No CT evidence for pulmonary artery embolism. 2. Dense left upper lobe airspace consolidation with left lower lobe collapse. Additional patchy nodular airspace opacities in the left upper lobe may be inflammatory/infectious in etiology. Overall findings are concerning for severe aspiration. 3. Multiple right upper lobe nodules measuring up to 1 cm. Although these may also be inflammatory or infectious in etiology given findings in the left lung, differential considerations include metastatic disease in this patient with history of brain mass. 4. Subcentimeter mediastinal nodes, likely reactive. Abdomen/Bladder Ultrasound 02/09/18 00:00 CONCLUSION: 1. Left renal cysts. Chest X-Ray 02/10/18 00:00 CONCLUSION: Improving bilateral pulmonary infiltrates. Stable small right effusion. Objective Remarks: GENERAL: Patient is 77 yo male currently orotracheally intubated SKIN: Warm and dry. Mottled bilateral lower extremities including toes bilaterally. Bandage over dorsal aspect of left foot HEAD: Normocephalic. EYES: No scleral icterus. No injection or drainage. NECK: Supple, trachea midline. No JVD or lymphadenopathy. CARDIOVASCULAR: Tachycardic with ectopy/PVCs. S1, S2. No S4.. RESPIRATORY: Breath sounds equal bilaterally. No accessory muscle use. GASTROINTESTINAL: Abdomen soft, non-tender, nondistended. MUSCULOSKELETAL: No skin peripheral. Neuro: Currently on no sedation. Positive gag and cough. Positive corneal reflex. Withdraws to pain.. Assessment and Plan - Assessment and Plan Plan: 1. VDRF 2. Severe septic shock. 3. Left-sided pneumonia. 4. Right upper lobe nodules, ddx ,infectious/inflammatory process versus metastatic disease. 5. Lactic acidosis. 6. Acute kidney injury. 7. Mild elevation in troponin. 8. Small cell lung cancer. 9. 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 10. Chronic obstructive pulmonary disease. 11. History of coronary artery disease. 12. Leukopenia/normocytic anemia/thrombocytopenia 13. Hypocalcemia/hyponatremia/acute 14. Left renal cyst 15. History of right posterior temporal craniotomy and resection of mass in the right temporooccipital low convexities with evidence for recurrent/residual disease similar to previous MRI exam. Plan Neuro: On Diprivan infusion for sedation. Early off Daily sedation vacation. Acetaminophen 650 by tube every 6 hours as needed fever CT brain revealed. postsurgical features of right posterior temporal craniotomy and resection of mass in the right temporooccipital low convexities with evidence for recurrent/residual disease similar to previous MRI exam. 2. No increased mass effect, midline shift or definitive hemorrhage Pulm: Continue with vent support and maintain sats >92%. Currently on PST trial 09/05 at 40% Bronchodilators, hydrocortisone 100 mg IV every 8 hours. Check x-ray in a.m. 02/11 CV: Wean off norepinephrine drip currently at 6 mcg/min keep MAP>65 mmHg. Monitor CKs/troponins, for 2D echo. Continue with IVF on D5 water with 75 mEq sodium bicarbonate at 84 cc an hour : Monitor renal function, I's and O's , avoid nephrotoxins Renal eval, left renal cyst on renal US no hydronephrosis Continue with bicarb drip. GI: on pantoprazole 40 mg IV daily for GI prophylaxis. Continue tube feeds- Nepro with goal rate 40ml/hr ID: Continue abx(vancomycin, Zosyn and azithromycin) Follow up on Blood and urine cx, check sputum cx. Strep pneumonia and Legionella urinary AG Endo: SSI with Accu-Cheks for glycemic control Heme: Monitor CBC GI prophylaxis with Protonix 40 mg daily DVT prophylaxis with SCDs only, not on chemical DVT prophylaxis due to previous right craniotomy with brain mass resection. IV [id number]-Port placement right femoral central line by the ED physician 02/08 CCT 35 mins
[2018-02-10] MEDS: Artificial Tears Opth Drops 15 ML Bottle EACH EYE SCH ×2 (12:05→17:58)
--- NOTE | 2018-02-10 13:32 | P.DIET ---
Nutritional Evaluation Type of nutrition evaluation: initial Nutrition consult regarding: Tube Feeding Objective - Diagnosis Sepsis, Pneumonia, Hypoxemia, COPD, Brain tumor/Lung Cancer - Objective % IBW: 139 Body Weight Used for Calculations: IBW (72.7 kg) Energy Needs - Lower Range (kCal/kg): 25 Energy Needs - Upper Range (kCal/kg): 30 Lower Limit kCal/kg (kCals): 1,818 Upper Limit kCal/kg (kCals): 2,181 Lower Limit Protein Factor (Grams per Kg): 1.0 Upper Limit Protein Factor (Grams per Kg): 1.3 Lower Protein Needs (Protein): 73 Upper Protein Needs (Protein): 95 Dietitian Reviewed in Medical Record: Curent medications, Intake & Output, Labs , Medical history, Tube feeding Diet Order: NPO Objective Comments: PMH includes: Anemia, COPD, Dementia, Frequent Falls, Hyperlipidemia, HTN, 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 For TF'ing w/ Nepro, Rec a goal rate @ 45ml/hr to offer 1944 kcal, 88g protein and 785ml free water. Pt is a No Code DNR and a review of EMR w/plan for withdrawal of care. Additional Recs r/t Clinical Course. Recommendations: 1. For TF'ing w/Nepro, Rec a goal rate @ 45ml/hr 2. Pt is a No Code DNR and a review of EMR w/plan for withdrawal of care 3. Additional Recs r/t Clinical Course
--- NOTE | 2018-02-10 16:26 | P.PN ---
Subjective Interval history: Deteriorating overall. Renal profile worse. on CPAP today FIO2 45%. Poor output Healthcare surrogate requests withdrawal. Physical Exam Vital signs: Vital Signs 02/09/18 16:33 02/09/18 16:38 02/09/18 16:39 Temperature Pulse Rate 100 H 97 H 102 H Respiratory Rate 22 23 21 Blood Pressure 132/96 H 75/41 L 77/45 L Pulse Oximetry 92 L 92 L 92 L 02/09/18 16:42 02/09/18 16:45 02/09/18 16:51 Temperature Pulse Rate 92 H 96 H 96 H Respiratory Rate 20 19 20 Blood Pressure 112/59 L 134/90 77/50 L Pulse Oximetry 95 95 95 02/09/18 16:52 02/09/18 17:00 02/09/18 17:15 Temperature Pulse Rate 95 H 92 H 97 H Respiratory Rate 19 19 20 Blood Pressure 89/54 L 104/52 L 99/54 L Pulse Oximetry 94 L 94 L 95 02/09/18 17:30 02/09/18 17:46 02/09/18 18:00 Temperature Pulse Rate 94 H 102 H 103 H Respiratory Rate 16 16 16 Blood Pressure 144/99 H 83/58 L 95/50 L Pulse Oximetry 94 L 95 94 L 02/09/18 18:15 02/09/18 18:30 02/09/18 18:45 Temperature Pulse Rate 100 H 99 H 102 H Respiratory Rate 16 16 14 Blood Pressure 95/52 L 98/50 L 92/50 L Pulse Oximetry 93 L 94 L 94 L 02/09/18 19:00 02/09/18 19:15 02/09/18 19:30 Temperature Pulse Rate 99 H 97 H 96 H Respiratory Rate 14 14 14 Blood Pressure 92/50 L 94/55 L 84/52 L Pulse Oximetry 94 L 93 L 93 L 02/09/18 19:45 02/09/18 20:00 02/09/18 20:15 Temperature 99.1 F Pulse Rate 90 94 H 92 H Respiratory Rate 14 19 15 Blood Pressure 85/53 L 84/53 L 90/50 L Pulse Oximetry 93 L 93 L 91 L 02/09/18 20:30 02/09/18 20:41 02/09/18 20:45 Temperature Pulse Rate 87 81 82 Respiratory Rate 13 13 13 Blood Pressure 81/43 L 86/50 L 78/43 L Pulse Oximetry 95 96 96 02/09/18 20:46 02/09/18 20:56 02/09/18 21:00 Temperature Pulse Rate 85 73 77 Respiratory Rate 12 13 13 Blood Pressure 75/42 L 112/57 L 99/49 L Pulse Oximetry 96 97 97 02/09/18 21:15 02/09/18 21:30 02/09/18 21:45 Temperature Pulse Rate 77 78 77 Respiratory Rate 13 13 13 Blood Pressure 93/55 L 91/54 L 93/52 L Pulse Oximetry 98 98 98 02/09/18 22:00 02/09/18 22:15 02/09/18 22:30 Temperature Pulse Rate 77 76 77 Respiratory Rate 14 13 13 Blood Pressure 99/56 L 101/55 L 99/56 L Pulse Oximetry 98 98 98 02/09/18 22:45 02/09/18 23:00 02/09/18 23:15 Temperature Pulse Rate 75 80 78 Respiratory Rate 13 14 14 Blood Pressure 101/51 L 119/63 108/57 L Pulse Oximetry 98 97 98 02/09/18 23:29 02/09/18 23:30 02/09/18 23:45 Temperature Pulse Rate 80 79 75 Respiratory Rate 12 13 13 Blood Pressure 106/58 L 100/56 L Pulse Oximetry 97 96 96 02/10/18 00:00 02/10/18 00:15 02/10/18 00:30 Temperature 99.0 F Pulse Rate 74 77 77 Respiratory Rate 13 13 14 Blood Pressure 98/53 L 105/53 L 116/54 L Pulse Oximetry 96 96 96 02/10/18 00:45 02/10/18 01:00 02/10/18 01:17 Temperature Pulse Rate 78 79 95 H Respiratory Rate 13 13 22 Blood Pressure 108/56 L 113/57 L 162/70 H Pulse Oximetry 97 97 94 L 02/10/18 02:00 02/10/18 02:36 02/10/18 02:45 Temperature Pulse Rate 85 84 83 Respiratory Rate 12 12 11 L Blood Pressure 103/58 L 104/57 L Pulse Oximetry 96 97 97 02/10/18 03:00 02/10/18 03:11 02/10/18 03:15 Temperature Pulse Rate 79 82 78 Respiratory Rate 11 L 14 10 L Blood Pressure 93/55 L 100/55 L Pulse Oximetry 96 02/10/18 03:30 11/11/18 03:45 02/10/18 04:00 Temperature 99 F Pulse Rate 79 83 83 Respiratory Rate 11 L 12 12 Blood Pressure 103/57 L 97/56 L 101/52 L Pulse Oximetry 95 95 95 02/10/18 04:15 02/10/18 04:17 02/10/18 04:30 Temperature Pulse Rate 79 78 Respiratory Rate 10 L 15 11 L Blood Pressure 86/53 L 96/54 L Pulse Oximetry 95 96 96 02/10/18 04:45 02/10/18 05:00 02/10/18 05:15 Temperature Pulse Rate 80 75 72 Respiratory Rate 12 12 13 Blood Pressure 97/52 L 94/50 L 96/54 L Pulse Oximetry 96 96 96 02/10/18 05:30 02/10/18 05:46 02/10/18 06:00 Temperature Pulse Rate 78 80 74 Respiratory Rate 12 11 L 11 L Blood Pressure 103/59 L 117/63 96/51 L Pulse Oximetry 95 96 95 02/10/18 06:15 02/10/18 06:30 02/10/18 06:45 Temperature Pulse Rate 78 75 71 Respiratory Rate 11 L 16 12 Blood Pressure 105/58 L 106/55 L 98/53 L Pulse Oximetry 96 96 96 02/10/18 07:00 02/10/18 07:15 02/10/18 07:21 Temperature Pulse Rate 70 75 75 Respiratory Rate 14 12 10 L Blood Pressure 96/53 L 97/60 L Pulse Oximetry 96 95 97 02/10/18 07:30 02/10/18 07:45 02/10/18 08:00 Temperature 96.6 F L Pulse Rate 74 75 73 Respiratory Rate 9 L 9 L 9 L Blood Pressure 122/57 L 114/54 L 106/60 Pulse Oximetry 95 95 96 02/10/18 08:15 02/10/18 08:31 02/10/18 08:46 Temperature Pulse Rate 78 73 85 Respiratory Rate 9 L 10 L 13 Blood Pressure 101/57 L 146/92 H 121/60 Pulse Oximetry 95 97 87 L 02/10/18 09:00 02/10/18 09:15 02/10/18 09:31 Temperature Pulse Rate 85 85 89 Respiratory Rate 12 11 L 21 Blood Pressure 130/60 104/58 L 127/109 H Pulse Oximetry 90 L 89 L 92 L 02/10/18 09:33 02/10/18 09:45 02/10/18 10:00 Temperature Pulse Rate 83 81 84 Respiratory Rate 16 15 14 Blood Pressure 143/66 H 140/73 123/69 Pulse Oximetry 96 95 96 02/10/18 10:15 02/10/18 10:30 02/10/18 10:45 Temperature Pulse Rate 84 80 84 Respiratory Rate 13 15 14 Blood Pressure 104/56 L 109/56 L 117/56 L Pulse Oximetry 96 96 96 02/10/18 11:00 02/10/18 11:15 02/10/18 11:30 Temperature Pulse Rate 84 88 87 Respiratory Rate 15 13 15 Blood Pressure 103/56 L 113/57 L 130/61 Pulse Oximetry 96 96 93 L 02/10/18 11:45 02/10/18 11:56 02/10/18 12:00 Temperature 97.1 F L Pulse Rate 84 81 Respiratory Rate 13 16 14 Blood Pressure 122/60 137/66 Pulse Oximetry 96 97 98 02/10/18 12:15 02/10/18 14:00 02/10/18 15:16 Temperature Pulse Rate 81 81 93 H Respiratory Rate 14 20 Blood Pressure 124/64 Pulse Oximetry 98 02/10/18 15:40 Temperature Pulse Rate 82 Respiratory Rate 19 Blood Pressure Pulse Oximetry 95 Intake & Output 02/09/18 02/10/18 02/10/18 18:59 06:59 18:59 Intake Total 1622 / 1622 2043 / 2043 50 / 50 Output Total 175 / 175 200 / 200 Balance 1447 / 1447 1843 / 1843 50 / 50 Weight 102.6 kg Intake: IV 1600 / 1600 1700 / 1700 50 / 50 Sodium Bicarbonate 8.4% Inj 75 1000 / 1000 1000 / 1000 MEQ In D5W Inj 925 ML @ 84 mls/ hr IV.CONT .[id number] [facility] Rx#: [id number] Azithromycin Inj 500 MG In NS 250 / 250 Inj 250 ML @ 250 mls/hr IV.SIG Q24H [facility] Rx#:[id number] Levophed-Dextrose 4 mg/250 ml 500 / 500 250 / 250 Drip 4 mg In 250 ml @ 2 MCG/MIN 7.5 mls/hr IV.SIG TITRATE PRN Rx#:[id number] Zosyn 3.375 GM Premix 50 ML @ 100 / 100 50 / 50 100 mls/hr IV.SIG Q6H [facility] Rx#: [id number] Zosyn 4.5 GM Premix 4.5 gm In 100 / 100 100 / 100 100 ml @ 200 mls/hr IV.SIG Q6H [facility] Rx#:[id number] Tube Feeding 343 / 343 Output: Urine Amount (Catheter) 175 / 175 200 / 200 Indwelling Urethral Catheter 175 / 175 200 / 200 Other: Date of Last Bowel Movement 02/09/18 02/09/18 # Bowel Movements 1 # Incontinent Bowel Movements 1 3 GENERAL: Elderly W/M on vent . SKIN: Warm and dry. HEAD: Atraumatic. Normocephalic. EYES: Pupils equal and round. No scleral icterus. No injection or drainage. ENT: No nasal bleeding or discharge. Mucous membranes pink and moist. NECK: Trachea midline. No JVD. CARDIOVASCULAR: Regular rate and rhythm. RESPIRATORY: Wheeze heard. Breath sounds equal bilaterally. GASTROINTESTINAL: Abdomen soft, non-tender, nondistended. Hepatic and splenic margins not palpable. MUSCULOSKELETAL: Extremities without clubbing, cyanosis, or edema. No obvious deformities. NEUROLOGICAL: sedated on vent support PSYCHIATRIC: cannot assess. - Urinary Catheter Management Indwelling Urethral Catheter Cath placed during this visit: yes Reason for continuing: Acute urinary retention Insertion date: 02/08/18 Insertion time: 06:32 Results - Labs CBC & Chem 7: 02/10/18 05:15 02/10/18 05:15 Laboratory Results - last 24 hr 02/09/18 02/09/18 02/09/18 12:15 12:15 16:15 WBC RBC Hgb Hct MCV MCH MCHC RDW Plt Count MPV Prelim Diff (Auto) Neut % (Auto) Lymph % (Auto) Pepin % (Auto) Eos % (Auto) Baso % (Auto) Neut # (Auto) Lymph # (Auto) Pepin # (Auto) Eos # (Auto) Baso # (Auto) WBC Differential Seg Neuts % (Manual) Band Neuts % (Manual) Lymphocytes % (Manual) Monocytes % (Manual) Abs Neuts (Manual) Nucleated RBCs/100 WBC Differential Comment Platelet Estimate Platelet Morphology Ovalocytes Puncture Site Patient Temperature O2 Saturation ABG pH ABG pCO2 ABG pO2 ABG HCO3 ABG O2 Content ABG Base Excess ABG Methemoglobin Rob Test Hemoglobin Carboxyhemoglobin O2 Delivery Device Vent Setting Inspired O2 Critical Value Sodium Potassium 4.9 Chloride Carbon Dioxide Anion Gap BUN Creatinine Estimated GFR POC Glucose Random Glucose Calcium Prot Corrected Calcium Phosphorus Magnesium Total Bilirubin AST ALT Alkaline Phosphatase Total Protein Albumin Ur Random Creatinine 80 Ur Random Sodium Cancelled 13 Random Vancomycin 02/09/18 02/09/18 02/09/18 16:20 17:38 23:33 WBC RBC Hgb Hct MCV MCH MCHC RDW Plt Count MPV Prelim Diff (Auto) Neut % (Auto) Lymph % (Auto) Pepin % (Auto) Eos % (Auto) Baso % (Auto) Neut # (Auto) Lymph # (Auto) Pepin # (Auto) Eos # (Auto) Baso # (Auto) WBC Differential Seg Neuts % (Manual) Band Neuts % (Manual) Lymphocytes % (Manual) Monocytes % (Manual) Abs Neuts (Manual) Nucleated RBCs/100 WBC Differential Comment Platelet Estimate Platelet Morphology Ovalocytes Puncture Site Right radial Patient Temperature 98.6 O2 Saturation 90 ABG pH 7.36 L ABG pCO2 39 ABG pO2 64 ABG HCO3 22 ABG O2 Content 13.4 ABG Base Excess -3.0 L ABG Methemoglobin 1.4 Rob Test Present Hemoglobin 10.5 L Carboxyhemoglobin 1.1 O2 Delivery Device Ventilator Vent Setting [id number]/[id number] Inspired O2 50 Critical Value No Sodium Potassium Chloride Carbon Dioxide Anion Gap BUN Creatinine Estimated GFR POC Glucose 171 H 198 H Random Glucose Calcium Prot Corrected Calcium Phosphorus Magnesium Total Bilirubin AST ALT Alkaline Phosphatase Total Protein Albumin Ur Random Creatinine Ur Random Sodium Random Vancomycin 02/10/18 02/10/18 02/10/18 05:12 05:15 05:15 WBC 3.3 L RBC 3.42 L Hgb 9.7 L Hct 28.9 L MCV 84.4 MCH 28.4 MCHC 33.7 RDW 21.3 H Plt Count 93 L D MPV 7.5 Prelim Diff (Auto) Slide review pending Neut % (Auto) 86.3 H Lymph % (Auto) 10.4 Pepin % (Auto) 2.9 Eos % (Auto) 0.1 Baso % (Auto) 0.3 Neut # (Auto) 2.8 Lymph # (Auto) 0.3 L Pepin # (Auto) 0.1 Eos # (Auto) 0.0 Baso # (Auto) 0.0 WBC Differential Manual diff final Seg Neuts % (Manual) 59 Band Neuts % (Manual) 20 H Lymphocytes % (Manual) 15 Monocytes % (Manual) 6 Abs Neuts (Manual) 2.6 Nucleated RBCs/100 WBC 3 H Differential Comment . Platelet Estimate Low L Platelet Morphology Normal Ovalocytes 1+ H Puncture Site Patient Temperature O2 Saturation ABG pH ABG pCO2 ABG pO2 ABG HCO3 ABG O2 Content ABG Base Excess ABG Methemoglobin Rob Test Hemoglobin Carboxyhemoglobin O2 Delivery Device Vent Setting Inspired O2 Critical Value Sodium 135 L Potassium 3.8 D Chloride 97 L Carbon Dioxide 24.2 Anion Gap 14 BUN 59 H Creatinine 2.47 H Estimated GFR 26 L POC Glucose 223 H Random Glucose 177 H Calcium 6.0 L* D Prot Corrected Calcium 7.0 L* D Phosphorus 8.7 H Magnesium 2.0 Total Bilirubin 0.3 AST 99 H ALT 53 Alkaline Phosphatase 55 Total Protein 4.9 L Albumin 1.3 L Ur Random Creatinine Ur Random Sodium Random Vancomycin 19.7 02/10/18 11:31 WBC RBC Hgb Hct MCV MCH MCHC RDW Plt Count MPV Prelim Diff (Auto) Neut % (Auto) Lymph % (Auto) Pepin % (Auto) Eos % (Auto) Baso % (Auto) Neut # (Auto) Lymph # (Auto) Pepin # (Auto) Eos # (Auto) Baso # (Auto) WBC Differential Seg Neuts % (Manual) Band Neuts % (Manual) Lymphocytes % (Manual) Monocytes % (Manual) Abs Neuts (Manual) Nucleated RBCs/100 WBC Differential Comment Platelet Estimate Platelet Morphology Ovalocytes Puncture Site Patient Temperature O2 Saturation ABG pH ABG pCO2 ABG pO2 ABG HCO3 ABG O2 Content ABG Base Excess ABG Methemoglobin Rob Test Hemoglobin Carboxyhemoglobin O2 Delivery Device Vent Setting Inspired O2 Critical Value Sodium Potassium Chloride Carbon Dioxide Anion Gap BUN Creatinine Estimated GFR POC Glucose 180 H Random Glucose Calcium Prot Corrected Calcium Phosphorus Magnesium Total Bilirubin AST ALT Alkaline Phosphatase Total Protein Albumin Ur Random Creatinine Ur Random Sodium Random Vancomycin Microbiology 02/09/18 12:15 Sputum - Oral Tracheal Aspirate Gram Stain - Final 02/09/18 12:15 Sputum - Oral Tracheal Aspirate Sputum Culture - Preliminary S. aureus MRSA 02/08/18 06:36 Blood - Peripheral Aerobic Blood Culture - Preliminary No growth in 2 days 02/08/18 06:36 Blood - Peripheral Anaerobic Blood Culture - Preliminary S. aureus MRSA 02/08/18 06:31 Blood - Peripheral Aerobic Blood Culture - Preliminary No growth in 2 days 02/08/18 06:31 Blood - Peripheral Anaerobic Blood Culture - Preliminary No growth in 2 days 02/08/18 06:35 Catheterized Urine Urine Culture - Final No growth in 48 hours - Imaging Impressions Chest X-Ray 02/10/18 00:00 CONCLUSION: Improving bilateral pulmonary infiltrates. Stable small right effusion. Assessment and Plan - Assessment (1) Brain tumor Code(s): D49.6 - Neoplasm of unspecified behavior of brain Status: Acute (2) Dementia Code(s): F03.90 - Unspecified dementia without behavioral disturbance Status: Acute (3) Cranial irradiation Status: Acute (4) COPD (chronic obstructive pulmonary disease) Code(s): J44.9 - Chronic obstructive pulmonary disease, unspecified Status: Acute (5) Pain Code(s): R52 - Pain, unspecified Status: Acute (6) Anxiety Code(s): F41.9 - Anxiety disorder, unspecified Status: Acute (7) Debility Code(s): R53.81 - Other malaise Status: Acute (8) Sepsis associated hypotension Code(s): A41.9 - Sepsis, unspecified organism; I95.9 - Hypotension, unspecified Status: Acute - Plan 1. Cont vent to CPAP 5/10 cm and FIo2 to 40 % 2. Continue antibiotics Zosyn/Vancomycin 3. Wean Pressors. 4. CBC,BMP in am 5. Solucortef 100 mg IV q8H 6. Tube feeds at 40 CC 7. Rolf lee qid 8. palliative care to see in am
--- NOTE | 2018-02-10 21:11 | P.PNONC ---
Subjective Interval history: Patient is sedated and on the ventilator Objective Vital Signs/Intake & Output: Vital Signs 02/09/18 21:15 02/09/18 21:30 02/09/18 21:45 Temperature Pulse Rate 77 78 77 Respiratory Rate 13 13 13 Blood Pressure 93/55 L 91/54 L 93/52 L Pulse Oximetry 98 98 98 02/09/18 22:00 02/09/18 22:15 02/09/18 22:30 Temperature Pulse Rate 77 76 77 Respiratory Rate 14 13 13 Blood Pressure 99/56 L 101/55 L 99/56 L Pulse Oximetry 98 98 98 02/09/18 22:45 02/09/18 23:00 02/09/18 23:15 Temperature Pulse Rate 75 80 78 Respiratory Rate 13 14 14 Blood Pressure 101/51 L 119/63 108/57 L Pulse Oximetry 98 97 98 02/09/18 23:29 02/09/18 23:30 02/09/18 23:45 Temperature Pulse Rate 80 79 75 Respiratory Rate 12 13 13 Blood Pressure 106/58 L 100/56 L Pulse Oximetry 97 96 96 02/10/18 00:00 02/10/18 00:15 02/10/18 00:30 Temperature 99.0 F Pulse Rate 74 77 77 Respiratory Rate 13 13 14 Blood Pressure 98/53 L 105/53 L 116/54 L Pulse Oximetry 96 96 96 02/10/18 00:45 02/10/18 01:00 02/10/18 01:17 Temperature Pulse Rate 78 79 95 H Respiratory Rate 13 13 22 Blood Pressure 108/56 L 113/57 L 162/70 H Pulse Oximetry 97 97 94 L 02/10/18 02:00 02/10/18 02:36 02/10/18 02:45 Temperature Pulse Rate 85 84 83 Respiratory Rate 12 12 11 L Blood Pressure 103/58 L 104/57 L Pulse Oximetry 96 97 97 02/10/18 03:00 02/10/18 03:11 02/10/18 03:15 Temperature Pulse Rate 79 82 78 Respiratory Rate 11 L 14 10 L Blood Pressure 93/55 L 100/55 L Pulse Oximetry 96 02/10/18 03:30 02/10/18 03:45 02/10/18 04:00 Temperature 99 F Pulse Rate 79 83 83 Respiratory Rate 11 L 12 12 Blood Pressure 103/57 L 97/56 L 101/52 L Pulse Oximetry 95 95 95 02/10/18 04:15 02/10/18 04:17 02/10/18 04:30 Temperature Pulse Rate 79 78 Respiratory Rate 10 L 15 11 L Blood Pressure 86/53 L 96/54 L Pulse Oximetry 95 96 96 02/10/18 04:45 02/10/18 05:00 02/10/18 05:15 Temperature Pulse Rate 80 75 72 Respiratory Rate 12 12 13 Blood Pressure 97/52 L 94/50 L 96/54 L Pulse Oximetry 96 96 96 02/10/18 05:30 02/10/18 05:46 02/10/18 06:00 Temperature Pulse Rate 78 80 74 Respiratory Rate 12 11 L 11 L Blood Pressure 103/59 L 117/63 96/51 L Pulse Oximetry 95 96 95 02/10/18 06:15 02/10/18 06:30 02/10/18 06:45 Temperature Pulse Rate 78 75 71 Respiratory Rate 11 L 16 12 Blood Pressure 105/58 L 106/55 L 98/53 L Pulse Oximetry 96 96 96 02/10/18 07:00 02/10/18 07:15 02/10/18 07:21 Temperature Pulse Rate 70 75 75 Respiratory Rate 14 12 10 L Blood Pressure 96/53 L 97/60 L Pulse Oximetry 96 95 97 02/10/18 07:30 02/10/18 07:45 02/10/18 08:00 Temperature 96.6 F L Pulse Rate 74 75 73 Respiratory Rate 9 L 9 L 9 L Blood Pressure 122/57 L 114/54 L 106/60 Pulse Oximetry 95 95 96 02/10/18 08:15 02/10/18 08:31 02/10/18 08:46 Temperature Pulse Rate 78 73 85 Respiratory Rate 9 L 10 L 13 Blood Pressure 101/57 L 146/92 H 121/60 Pulse Oximetry 95 97 87 L 02/10/18 09:00 02/10/18 09:15 02/10/18 09:31 Temperature Pulse Rate 85 85 89 Respiratory Rate 12 11 L 21 Blood Pressure 130/60 104/58 L 127/109 H Pulse Oximetry 90 L 89 L 92 L 02/10/18 09:33 02/10/18 09:45 02/10/18 10:00 Temperature Pulse Rate 83 81 84 Respiratory Rate 16 15 14 Blood Pressure 143/66 H 140/73 123/69 Pulse Oximetry 96 95 96 02/10/18 10:15 02/10/18 10:30 02/10/18 10:45 Temperature Pulse Rate 84 80 84 Respiratory Rate 13 15 14 Blood Pressure 104/56 L 109/56 L 117/56 L Pulse Oximetry 96 96 96 02/10/18 11:00 02/10/18 11:15 02/10/18 11:30 Temperature Pulse Rate 84 88 87 Respiratory Rate 15 13 15 Blood Pressure 103/56 L 113/57 L 130/61 Pulse Oximetry 96 96 93 L 02/10/18 11:45 02/10/18 11:56 02/10/18 12:00 Temperature 97.1 F L Pulse Rate 84 81 Respiratory Rate 13 16 14 Blood Pressure 122/60 137/66 Pulse Oximetry 96 97 98 02/10/18 12:15 02/10/18 12:30 02/10/18 12:45 Temperature Pulse Rate 81 81 80 Respiratory Rate 14 13 13 Blood Pressure 124/64 128/62 135/63 Pulse Oximetry 98 98 98 02/10/18 13:00 02/10/18 13:15 02/10/18 13:30 Temperature Pulse Rate 83 88 86 Respiratory Rate 20 15 16 Blood Pressure 154/69 H 149/65 H 134/69 Pulse Oximetry 98 98 98 02/10/18 13:45 02/10/18 14:00 02/10/18 14:15 Temperature Pulse Rate 82 81 81 Respiratory Rate 14 16 14 Blood Pressure 128/60 138/63 129/88 Pulse Oximetry 98 98 98 02/10/18 14:30 02/10/18 14:45 02/10/18 15:00 Temperature Pulse Rate 88 81 93 H Respiratory Rate 15 18 17 Blood Pressure 137/61 145/65 H 99/61 L Pulse Oximetry 97 97 96 02/10/18 15:15 02/10/18 15:16 02/10/18 15:30 Temperature Pulse Rate 89 93 H 94 H Respiratory Rate 20 20 21 Blood Pressure 113/71 111/59 L Pulse Oximetry 96 95 02/10/18 15:40 02/10/18 15:45 02/10/18 16:00 Temperature 98.5 F Pulse Rate 82 95 H 88 Respiratory Rate 19 16 14 Blood Pressure 124/61 110/56 L Pulse Oximetry 95 97 96 02/10/18 16:16 02/10/18 16:31 02/10/18 16:45 Temperature Pulse Rate 100 H 93 H 89 Respiratory Rate 20 22 16 Blood Pressure 111/72 148/63 H 114/59 L Pulse Oximetry 94 L 95 94 L 02/10/18 17:00 02/10/18 17:15 02/10/18 17:31 Temperature Pulse Rate 88 102 H 106 H Respiratory Rate 16 23 22 Blood Pressure 104/55 L 120/62 145/63 H Pulse Oximetry 94 L 02/10/18 17:45 02/10/18 18:00 02/10/18 18:15 Temperature Pulse Rate 92 H 96 H 97 H Respiratory Rate 17 11 L 11 L Blood Pressure 128/68 97/52 L 96/53 L Pulse Oximetry 93 L 92 L 94 L 02/10/18 18:30 02/10/18 18:33 02/10/18 18:45 Temperature Pulse Rate 93 H 99 H 89 Respiratory Rate 12 12 11 L Blood Pressure 80/45 L 96/55 L 88/53 L Pulse Oximetry 94 L 94 L 95 02/10/18 19:00 02/10/18 19:15 02/10/18 19:30 Temperature Pulse Rate 87 84 88 Respiratory Rate 11 L 11 L 14 Blood Pressure 87/52 L 96/52 L 104/54 L Pulse Oximetry 95 95 95 02/10/18 19:45 02/10/18 20:00 02/10/18 20:15 Temperature 98.6 F Pulse Rate 83 88 82 Respiratory Rate 11 L 13 11 L Blood Pressure 96/53 L 90/50 L 93/54 L Pulse Oximetry 94 L 94 L 94 L 02/10/18 20:30 Temperature Pulse Rate 76 Respiratory Rate 13 Blood Pressure 77/41 L Pulse Oximetry 94 L Intake & Output 02/10/18 02/10/18 02/11/18 06:59 18:59 06:59 Intake Total 2043 / 2043 2746 / 2746 Output Total 200 / 200 275 / 275 Balance 1843 / 1843 2471 / 2471 Weight 102.6 kg Intake: IV 1700 / 1700 2220 / 2220 Neosynephrine Inj 40 MG In D5W 510 / 510 Inj 496 ML @ 40 MCG/MIN 30 mls/ hr IV.CONT TITRATE PRN Rx#: [id number] Sodium Bicarbonate 8.4% Inj 75 1000 / 1000 1000 / 1000 MEQ In D5W Inj 925 ML @ 84 mls/ hr IV.CONT .[id number] [facility] Rx#: [id number] Azithromycin Inj 500 MG In NS 250 / 250 250 / 250 Inj 250 ML @ 250 mls/hr IV.SIG Q24H [facility] Rx#:[id number] Calcium Chloride Inj 1 GM In NS 110 / 110 Inj 100 ML @ 110 mls/hr IV.SIG ONCE ONE Rx#:[id number] Levophed-Dextrose 4 mg/250 ml 250 / 250 250 / 250 Drip 4 mg In 250 ml @ 2 MCG/MIN 7.5 mls/hr IV.SIG TITRATE PRN Rx#:[id number] Zosyn 3.375 GM Premix 50 ML @ 100 / 100 100 / 100 100 mls/hr IV.SIG Q6H [facility] Rx#: [id number] Zosyn 4.5 GM Premix 4.5 gm In 100 / 100 100 ml @ 200 mls/hr IV.SIG Q6H [facility] Rx#:[id number] Oral 526 / 526 Tube Feeding 343 / 343 Output: Urine Amount (Catheter) 200 / 200 275 / 275 Indwelling Urethral Catheter 200 / 200 275 / 275 Other: Date of Last Bowel Movement 02/09/18 02/09/18 # Incontinent Bowel Movements 3 Result Diagrams: 02/10/18 05:15 02/10/18 05:15 Laboratory Results: Laboratory Results - last 24 hr 02/09/18 02/10/18 02/10/18 23:33 05:12 05:15 WBC RBC Hgb Hct MCV MCH MCHC RDW Plt Count MPV Prelim Diff (Auto) Neut % (Auto) Lymph % (Auto) [place] % (Auto) Eos % (Auto) Baso % (Auto) Neut # (Auto) Lymph # (Auto) [place] # (Auto) Eos # (Auto) Baso # (Auto) WBC Differential Seg Neuts % (Manual) Band Neuts % (Manual) Lymphocytes % (Manual) Monocytes % (Manual) Abs Neuts (Manual) Nucleated RBCs/100 WBC Differential Comment Platelet Estimate Platelet Morphology Ovalocytes Sodium 135 L Potassium 3.8 D Chloride 97 L Carbon Dioxide 24.2 Anion Gap 14 BUN 59 H Creatinine 2.47 H Estimated GFR 26 L POC Glucose 198 H 223 H Random Glucose 177 H Calcium 6.0 L* D Prot Corrected Calcium 7.0 L* D Phosphorus 8.7 H Magnesium 2.0 Total Bilirubin 0.3 AST 99 H ALT 53 Alkaline Phosphatase 55 Total Protein 4.9 L Albumin 1.3 L Random Vancomycin 19.7 02/10/18 02/10/18 02/10/18 05:15 11:31 17:40 WBC 3.3 L RBC 3.42 L Hgb 9.7 L Hct 28.9 L MCV 84.4 MCH 28.4 MCHC 33.7 RDW 21.3 H Plt Count 93 L D MPV 7.5 Prelim Diff (Auto) Slide review pending Neut % (Auto) 86.3 H Lymph % (Auto) 10.4 [place] % (Auto) 2.9 Eos % (Auto) 0.1 Baso % (Auto) 0.3 Neut # (Auto) 2.8 Lymph # (Auto) 0.3 L [place] # (Auto) 0.1 Eos # (Auto) 0.0 Baso # (Auto) 0.0 WBC Differential Manual diff final Seg Neuts % (Manual) 59 Band Neuts % (Manual) 20 H Lymphocytes % (Manual) 15 Monocytes % (Manual) 6 Abs Neuts (Manual) 2.6 Nucleated RBCs/100 WBC 3 H Differential Comment . Platelet Estimate Low L Platelet Morphology Normal Ovalocytes 1+ H Sodium Potassium Chloride Carbon Dioxide Anion Gap BUN Creatinine Estimated GFR POC Glucose 180 H 148 H Random Glucose Calcium Prot Corrected Calcium Phosphorus Magnesium Total Bilirubin AST ALT Alkaline Phosphatase Total Protein Albumin Random Vancomycin Culture Results: Microbiology 02/09/18 12:15 Gram Stain - Final Sputum - Oral Tracheal Aspirate Sputum Culture - Preliminary S. aureus MRSA 02/08/18 06:36 Aerobic Blood Culture - Preliminary Blood - Peripheral No growth in 2 days Anaerobic Blood Culture - Preliminary S. aureus MRSA 02/08/18 06:31 Aerobic Blood Culture - Preliminary Blood - Peripheral No growth in 2 days Anaerobic Blood Culture - Preliminary No growth in 2 days 02/08/18 06:35 Urine Culture - Final Catheterized Urine No growth in 48 hours 02/08/18 06:35 Streptococcus pneumoniae Antigen (M - Final Urine - Catheterized Urine Presumptive negative for streptococcus pneumoniae antigen, suggesting no current or recent infection. Infection due to Streptococcus pneumoniae cannot be ruled out since the antigen present in the sample may be below the detection limit of the test. 02/08/18 06:35 Legionella Antigen - Final Urine - Catheterized Urine Presumptive negative for Legionella pneumophila serogroup 1 antigen in urine, suggesting no recent or recurrent infection. Infection due to Legionella cannot be ruled out since other serogroups and species may cause disease, antigen may not be present in urine in early infection, and the level of antigen present in the urine may be below the detection limit of the test. Imaging Studies: Impressions Chest X-Ray 02/10/18 00:00 CONCLUSION: Improving bilateral pulmonary infiltrates. Stable small right effusion. Medications: Active Medications Generic Name Dose Route Start Last Admin Trade Name Freq PRN Reason Stop Dose Admin Albuterol 1 ampul 02/08/18 08:00 02/10/18 19:37 Duoneb Neb (Radha) NEB 1 ampul Q4HR NEB RADHA Administration Artificial Tears 1 drop 02/10/18 10:00 02/10/18 17:58 Tears Naturale Opth Drops EACH EYE 1 drop Q8H RADHA Administration Chlorhexidine Gluconate 3 pack 02/09/18 04:00 02/10/18 04:55 Chlorhexidine 2% Cloth TOPICAL 02/14/18 03:59 Not Given DAILY@0400 RADHA Hydrocortisone Sodium Succinate 100 mg 02/08/18 14:00 02/10/18 14:45 Solucortef Inj IV.PUSH 100 mg Q8HR RADHA Administration Fentanyl 2,500 mcg in 250 mls @ 5 mls/hr 02/08/18 07:29 02/09/18 21:33 Fentanyl 10 Mcg/Ml Premix Drip IV.SIG 0 mcg/hr TITRATE PRN 0 mls/hr Per Protocol Titration Protocol 50 MCG/HR Azithromycin 500 mg/ Sodium 250 mls @ 250 mls/hr 02/08/18 08:00 02/10/18 18: 59 Chloride IV.SIG Infused Q24H RADHA Infusion Vancomycin HCl 1,250 mg/ 262.5 mls @ 262.5 mls/hr 02/09/18 04:00 02/09/18 05: 06 Sodium Chloride IV.SIG Infused Q24H RADHA Infusion Sodium Bicarbonate 75 meq/ 1,000 mls @ 84 mls/hr 02/08/18 17:00 02/10/18 16: 24 Dextrose IV.CONT 84 mls/hr .[id number] RADHA Administration Piperacillin/Tazobactam/Dextrose 50 mls @ 100 mls/hr 02/09/18 20:00 02/10/18 20:37 Zosyn 3.375 Gm Premix IV.SIG 100 mls/hr Q6H RADHA Administration Norepinephrine Bitartrate 16 250 mls @ 1.87 mls/hr 02/10/18 09:57 02/10/18 14 :51 mg/ Dextrose IV.CONT 2 mcg/min TITRATE PRN 1.87 mls/hr See Protocol Administration Protocol 2 MCG/MIN Insulin Human Regular 0 units 02/08/18 12:00 02/10/18 17:58 Novolin R Correctional Sugar Inj SQ Not Given Q6HR RADHA Protocol Pantoprazole Sodium 40 mg 02/08/18 09:00 02/10/18 08:29 Protonix Inj IV.PUSH 40 mg DAILY RADHA Administration Objective Remarks: GENERAL: Critically ill patient. SKIN: Warm and dry. HEAD: Normocephalic. EYES: No scleral icterus. NECK: Supple, trachea midline. LYMPHATIC: No adenopathy. CARDIOVASCULAR: Regular rate and rhythm without murmurs. RESPIRATORY: Breath sounds equal bilaterally. GASTROINTESTINAL: Abdomen soft, distended. EXTREMITIES: No cyanosis, or edema. NEUROLOGICAL: Sedated Assessment/Plan - Plan Mr. 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 Patient was recommended to begin radiation therapy first and then he was planning treatment with Rituxan and Temodar. The patient was brought to the hospital for altered mental status and was intubated in the field. Recommendations: 1. Septic shock, remains intubated. Blood culture growing MRSA. Continues on antibiotics, management per electrical maintenance technician. 2. B-cell non-Hodgkin's lymphoma, status post cranial mass resection, patient was pending the start of radiation treatment. Treatment currently on hold for acute change in status. Patient's family has elected to make him a DNR and palliative care is following. 3. Critical care management per electrical maintenance technician. 02/10/2018 RN has called me as the electrical maintenance technician Dr. Alanis wants me to sign the DNR form as [employer] drm consultant. He already signed form as attending Patient's prognosis is poor. He is in septic shock. Per Dr. Brand note he is not a good candidate for the treatment for PRESS MA[employer]TAIN[employer] lymphoma I have signed withdrawal of life support form Discussed with patient's RN
[2018-02-11] MEDS: Artificial Tears Opth Drops 15 ML Bottle EACH EYE SCH ×2 (01:15→13:40)
[2018-02-11] MEDS: Piperacil/Tazo 3.375 GM Premix 50 ML IV.SIG SCH ×2 (01:15→08:49)
[2018-02-11] MEDS ORDERED: Pharmacy Ordered Lab Info OTHER ONE (03:45)
[2018-02-11] MEDS: Sodium Bicarbonate 8.4% Inj 75 MEQ in Dextrose 5% in Water Inj 925 ML IV.CONT SCH ×2 (03:54)
[2018-02-11] MEDS: Chlorhexidine Gluconate 2% 1 Pack (2 Cloths) TOPICAL SCH (03:54)
[2018-02-11 04:59] LABS: Baso % (Auto) 0.2 % (0.0-2.0); Eos % (Auto) 0.1 % (0.0-4.0); Hematocrit 28.7 % (39.0-51.0); Hemoglobin 9.4 gm/dL (13.0-17.0); Lymph # (Auto) 0.3 th/mm3 (1.0-4.8); Mean Corpuscular HGB Conc 32.8 % (32.0-36.0); Mean Corpuscular Hemoglobin 27.7 pg (27.0-34.0); Mean Corpuscular Volume 84.5 fL (80.0-100.0); Mean Platelet Volume 7.8 fL (7.0-11.0); Mono # (Auto) 0.1 th/mm3 (0.0-0.9); Neut # (Auto) 2.6 th/mm3 (1.8-7.7); Neut % (Auto) 87.7 % (16.0-70.0); Platelet Count 71 th/mm3 (150-450); Red Cell Distribution Width 19.8 % (11.6-17.2); White Blood Count 2.9 th/mm3 (4.0-11.0)
[2018-02-11] MEDS: Hydrocortisone Sod Succinate 100 MG Vial IV.PUSH SCH (05:05)
[2018-02-11 05:40] LABS: Albumin 1.3 g/dL (3.4-5.0); Calcium 6.8 mg/dL (8.5-10.1); Carbon Dioxide 27.9 meq/L (21.0-32.0); Magnesium 2.3 mg/dL (1.5-2.5); Phosphorus 8.8 mg/dL (2.5-4.9); Potassium 3.2 meq/L (3.5-5.1); Total Protein 5.2 g/dL (6.4-8.2)
--- NOTE | 2018-02-11 05:41 | XR ---
EXAM DATE: 02/11/2018 5:24 AM EST AGE/SEX: 77 years / Male INDICATIONS: Shortness of breath, possible pulmonary disease. CLINICAL DATA: This is the patient's subsequent encounter. Patient reports that signs and symptoms h ave been present for 4 - 6 days and indicates a pain score of Nonresponsive. MEDICAL/SURGICAL HISTORY: Carcinoma, lung. Chronic obstructive pulmonary disease. Anemia. Br ain mass. . Port. COMPARISON: [facility] [place], CHEST 1V SINGLE AP, 02/10/2018. . FINDINGS: Single AP view the chest. Endotracheal tube, nasogastric tube, right sided [id number] remain in pl nagi. No change in bilateral pulmonary parenchymal opacity with lower lung zone predominance.. Possibl e small right pleural effusion.. CONCLUSION: No significant interval change. Electronically signed by: Abhijit Torres MD 02/11/2018 5:40 AM EST
[2018-02-11] MEDS: Insulin NovoLIN Regular Correctional Sugar Inj SQ SCH (06:11)
--- NOTE | 2018-02-11 07:38 | P.PNCC ---
Subjective Subjective Remarks/Hospital Course: The patient is a 77-year-old male with past medical history of small cell lung cancer, large B cell lymphoma, COPD, who presented to [facility] ED via EMS for hypoxemia and altered mental status. The patient reportedly had O2 saturation in the 70s on 2 liters nasal cannula and also was hypotensive. He was intubated and placed on mechanical ventilation. Upon arrival to the ED, he had a low-grade fever with temperature of 100.2 and initial blood pressure of 110/74. Then, the patient became hypotensive with a systolic blood pressure in the 70s. His laboratory data showed mild acute kidney injury with creatinine level 1.36 and lactic acidosis with lactic acid level of 4.6. Initial ABG post-intubation showed a pH of 7.30, CO2 45, pO2 of 58, bicarbonate of 21, and sat 84% on assist control ventilation with rate of 16, tidal volume 550, PEEP of 5 and 100% FiO2. A repeat ABG was performed at 11:52 which showed a pH of 7.27 with CO2 38, PaO2 of 72 and a bicarbonate of 17. In the ER, he was given approximately 4 liters of crystalloids along with vancomycin and Zosyn. Due to altered mental status, CT scan of the brain was obtained which showed postsurgical features of right posterior temporal craniotomy and resection of a mass in the right temporal occipital area. No evidence of mass effect, midline shift, or definite hemorrhage. He also underwent CT angiogram of the chest which showed no evidence of pulmonary embolism; however, it showed dense left upper lobe airspace consolidation patchy nodular airspace opacities in left upper lobe and multiple right upper lobe nodules. He was started on Levophed. The patient underwent right craniotomy with resection of tumor as stated above with biopsy results consistent with large B cell lymphoma. He is being followed by Dr. Brand from Oncology. 02/09 [place] remains sedated and intubated. On Levophed 7 mics. Made no code DNR yesterday. Afebrile. Renal function worse today with Cr: 2.0 from 1.36 on arrival. SUBJECTIVE 02/10: T-max 100.1. Currently afebrile. Jo on norepinephrine drip at 6 mg/ min and phenylephrine drip at 30 mcg/min.. Healthcare proxy requested withdrawal of care. Will discuss with oncology during rounds. Worsening renal failure noted 02/11 Patient remains intubated and sedated. Off Levophed, on Bicarb drip. Renal function continue to worse with Cr: 2.70 from 2.47. For possible withdrawal care today Objective Vital Signs / I&O: Vital Signs 02/10/18 07:30 02/10/18 07:45 02/10/18 08:00 Temperature 96.6 F L Pulse Rate 74 75 73 Respiratory Rate 9 L 9 L 9 L Blood Pressure 122/57 L 114/54 L 106/60 Pulse Oximetry 95 95 96 02/10/18 08:15 02/10/18 08:31 02/10/18 08:46 Temperature Pulse Rate 78 73 85 Respiratory Rate 9 L 10 L 13 Blood Pressure 101/57 L 146/92 H 121/60 Pulse Oximetry 95 97 87 L 02/10/18 09:00 02/10/18 09:15 02/10/18 09:31 Temperature Pulse Rate 85 85 89 Respiratory Rate 12 11 L 21 Blood Pressure 130/60 104/58 L 127/109 H Pulse Oximetry 90 L 89 L 92 L 02/10/18 09:33 02/10/18 09:45 02/10/18 10:00 Temperature Pulse Rate 83 81 84 Respiratory Rate 16 15 14 Blood Pressure 143/66 H 140/73 123/69 Pulse Oximetry 96 95 96 02/10/18 10:15 02/10/18 10:30 02/10/18 10:45 Temperature Pulse Rate 84 80 84 Respiratory Rate 13 15 14 Blood Pressure 104/56 L 109/56 L 117/56 L Pulse Oximetry 96 96 96 02/10/18 11:00 02/10/18 11:15 02/10/18 11:30 Temperature Pulse Rate 84 88 87 Respiratory Rate 15 13 15 Blood Pressure 103/56 L 113/57 L 130/61 Pulse Oximetry 96 96 93 L 02/10/18 11:45 02/10/18 11:56 02/10/18 12:00 Temperature 97.1 F L Pulse Rate 84 81 Respiratory Rate 13 16 14 Blood Pressure 122/60 137/66 Pulse Oximetry 96 97 98 02/10/18 12:15 02/10/18 12:30 02/10/18 12:45 Temperature Pulse Rate 81 81 80 Respiratory Rate 14 13 13 Blood Pressure 124/64 128/62 135/63 Pulse Oximetry 98 98 98 02/10/18 13:00 02/10/18 13:15 02/10/18 13:30 Temperature Pulse Rate 83 88 86 Respiratory Rate 20 15 16 Blood Pressure 154/69 H 149/65 H 134/69 Pulse Oximetry 98 98 98 02/10/18 13:45 02/10/18 14:00 02/10/18 14:15 Temperature Pulse Rate 82 81 81 Respiratory Rate 14 16 14 Blood Pressure 128/60 138/63 129/88 Pulse Oximetry 98 98 98 02/10/18 14:30 02/10/18 14:45 02/10/18 15:00 Temperature Pulse Rate 88 81 93 H Respiratory Rate 15 18 17 Blood Pressure 137/61 145/65 H 99/61 L Pulse Oximetry 97 97 96 02/10/18 15:15 02/10/18 15:16 02/10/18 15:30 Temperature Pulse Rate 89 93 H 94 H Respiratory Rate 20 20 21 Blood Pressure 113/71 111/59 L Pulse Oximetry 96 95 02/10/18 15:40 02/10/18 15:45 02/10/18 16:00 Temperature 98.5 F Pulse Rate 82 95 H 88 Respiratory Rate 19 16 14 Blood Pressure 124/61 110/56 L Pulse Oximetry 95 97 96 02/10/18 16:16 02/10/18 16:31 02/10/18 16:45 Temperature Pulse Rate 100 H 93 H 89 Respiratory Rate 20 22 16 Blood Pressure 111/72 148/63 H 114/59 L Pulse Oximetry 94 L 95 94 L 02/10/18 17:00 02/10/18 17:15 02/10/18 17:31 Temperature Pulse Rate 88 102 H 106 H Respiratory Rate 16 23 22 Blood Pressure 104/55 L 120/62 145/63 H Pulse Oximetry 94 L 02/10/18 17:45 02/10/18 18:00 02/10/18 18:15 Temperature Pulse Rate 92 H 96 H 97 H Respiratory Rate 17 11 L 11 L Blood Pressure 128/68 97/52 L 96/53 L Pulse Oximetry 93 L 92 L 94 L 02/10/18 18:30 02/10/18 18:33 02/10/18 18:45 Temperature Pulse Rate 93 H 99 H 89 Respiratory Rate 12 12 11 L Blood Pressure 80/45 L 96/55 L 88/53 L Pulse Oximetry 94 L 94 L 95 02/10/18 19:00 02/10/18 19:15 02/10/18 19:30 Temperature Pulse Rate 87 84 88 Respiratory Rate 11 L 11 L 14 Blood Pressure 87/52 L 96/52 L 104/54 L Pulse Oximetry 95 95 95 02/10/18 19:32 02/10/18 19:45 02/10/18 20:00 Temperature 98.6 F Pulse Rate 77 83 72 Respiratory Rate 15 11 L 13 Blood Pressure 96/53 L 90/50 L Pulse Oximetry 98 94 L 94 L 02/10/18 20:15 02/10/18 20:30 02/10/18 20:45 Temperature Pulse Rate 82 76 74 Respiratory Rate 11 L 13 13 Blood Pressure 93/54 L 77/41 L 81/51 L Pulse Oximetry 94 L 94 L 94 L 02/10/18 21:00 02/10/18 21:15 02/10/18 21:30 Temperature Pulse Rate 70 72 72 Respiratory Rate 12 14 15 Blood Pressure 85/54 L 91/54 L 88/54 L Pulse Oximetry 94 L 94 L 95 02/10/18 21:45 02/10/18 22:00 02/10/18 22:15 Temperature Pulse Rate 75 78 76 Respiratory Rate 13 11 L 11 L Blood Pressure 102/57 L 124/59 L 113/59 L Pulse Oximetry 92 L 93 L 94 L 02/10/18 22:30 02/10/18 22:45 02/10/18 23:00 Temperature Pulse Rate 73 77 75 Respiratory Rate 12 12 12 Blood Pressure 98/57 L 115/56 L 104/58 L Pulse Oximetry 95 95 95 02/10/18 23:15 02/10/18 23:30 02/10/18 23:45 Temperature Pulse Rate 75 70 72 Respiratory Rate 12 12 12 Blood Pressure 103/58 L 112/60 117/68 Pulse Oximetry 95 86 L 95 02/10/18 23:47 02/11/18 00:00 02/11/18 00:15 Temperature 97.9 F Pulse Rate 67 72 73 Respiratory Rate 16 11 L 15 Blood Pressure 109/66 105/58 L Pulse Oximetry 96 95 96 02/11/18 00:30 02/11/18 00:45 02/11/18 01:00 Temperature Pulse Rate 75 71 76 Respiratory Rate 10 L 11 L 13 Blood Pressure 94/55 L 102/55 L 97/56 L Pulse Oximetry 95 96 96 02/11/18 01:15 02/11/18 01:30 02/11/18 01:45 Temperature Pulse Rate 72 70 71 Respiratory Rate 11 L 14 10 L Blood Pressure 97/53 L 93/56 L 99/57 L Pulse Oximetry 96 96 96 02/11/18 02:00 02/11/18 02:15 02/11/18 02:30 Temperature Pulse Rate 70 67 70 Respiratory Rate 13 15 12 Blood Pressure 94/55 L 109/55 L 103/53 L Pulse Oximetry 96 96 96 02/11/18 02:45 02/11/18 03:00 02/11/18 03:15 Temperature Pulse Rate 66 66 64 Respiratory Rate 12 12 15 Blood Pressure 97/51 L 98/54 L 92/59 L Pulse Oximetry 96 96 96 02/11/18 03:30 02/11/18 03:34 02/11/18 03:45 Temperature Pulse Rate 63 68 Respiratory Rate 12 14 12 Blood Pressure 97/59 L 135/76 Pulse Oximetry 96 96 96 02/11/18 04:00 02/11/18 04:16 02/11/18 06:00 Temperature 98.4 F Pulse Rate 66 70 65 Respiratory Rate 12 11 L Blood Pressure 117/61 148/63 H Pulse Oximetry 96 96 Intake & Output 02/10/18 02/11/18 02/11/18 18:59 06:59 18:59 Intake Total 2746 / 2746 1443 / 1443 Output Total 275 / 275 225 / 225 Balance 2471 / 2471 1218 / 1218 Weight 107.4 kg Intake: IV 2220 / 2220 1100 / 1100 Neosynephrine Inj 40 MG In D5W 510 / 510 Inj 496 ML @ 40 MCG/MIN 30 mls/ hr IV.CONT TITRATE PRN Rx#: [id number] Sodium Bicarbonate 8.4% Inj 75 1000 / 1000 1000 / 1000 MEQ In D5W Inj 925 ML @ 84 mls/ hr IV.CONT .[id number] [facility] Rx#: [id number] Azithromycin Inj 500 MG In NS 250 / 250 Inj 250 ML @ 250 mls/hr IV.SIG Q24H [facility] Rx#:[id number] Calcium Chloride Inj 1 GM In NS 110 / 110 Inj 100 ML @ 110 mls/hr IV.SIG ONCE ONE Rx#:[id number] Levophed-Dextrose 4 mg/250 ml 250 / 250 Drip 4 mg In 250 ml @ 2 MCG/MIN 7.5 mls/hr IV.SIG TITRATE PRN Rx#:[id number] Zosyn 3.375 GM Premix 50 ML @ 100 / 100 100 / 100 100 mls/hr IV.SIG Q6H [facility] Rx#: [id number] Oral 526 / 526 Tube Feeding 343 / 343 Output: Urine 150 / 150 Stool 75 / 75 Urine Amount (Catheter) 275 / 275 Indwelling Urethral Catheter 275 / 275 Other: Date of Last Bowel Movement 02/09/18 02/09/18 Result Diagrams: 02/11/18 04:00 02/11/18 04:00 Other Results: Laboratory Results - last 12 hr 02/10/18 02/11/18 02/11/18 23:31 04:00 04:00 WBC 2.9 L RBC 3.40 L Hgb 9.4 L Hct 28.7 L MCV 84.5 MCH 27.7 MCHC 32.8 RDW 19.8 H Plt Count 71 L MPV 7.8 Prelim Diff (Auto) Slide review pending Neut % (Auto) 87.7 H Lymph % (Auto) 9.0 [place] % (Auto) 3.0 Eos % (Auto) 0.1 Baso % (Auto) 0.2 Neut # (Auto) 2.6 Lymph # (Auto) 0.3 L [place] # (Auto) 0.1 Eos # (Auto) 0.0 Baso # (Auto) 0.0 Differential Comment . Sodium 135 L Potassium 3.2 L Chloride 90 L Carbon Dioxide 27.9 Anion Gap 17 H BUN 75 H Creatinine 2.70 H Estimated GFR 23 L POC Glucose 250 H Random Glucose 184 H Calcium 6.8 L* D Prot Corrected Calcium 7.8 L D Phosphorus 8.8 H Magnesium 2.3 Total Bilirubin 0.3 AST 88 H ALT 52 Alkaline Phosphatase 68 Total Protein 5.2 L Albumin 1.3 L Imaging: Head CT 02/08/18 06:43 CONCLUSION: 1. Postsurgical features of right posterior temporal craniotomy and resection of mass in the right temporooccipital low convexities with evidence for recurrent/residual disease similar to previous MRI exam. 2. No increased mass effect, midline shift or definitive hemorrhage. . Chest CTA 02/08/18 07:13 CONCLUSION: 1. No CT evidence for pulmonary artery embolism. 2. Dense left upper lobe airspace consolidation with left lower lobe collapse. Additional patchy nodular airspace opacities in the left upper lobe may be inflammatory/infectious in etiology. Overall findings are concerning for severe aspiration. 3. Multiple right upper lobe nodules measuring up to 1 cm. Although these may also be inflammatory or infectious in etiology given findings in the left lung, differential considerations include metastatic disease in this patient with history of brain mass. 4. Subcentimeter mediastinal nodes, likely reactive. Abdomen/Bladder Ultrasound 02/09/18 00:00 CONCLUSION: 1. Left renal cysts. Chest X-Ray 02/11/18 06:00 CONCLUSION: No significant interval change. Objective Remarks: GENERAL: Patient is 77 yo male currently orotracheally intubated SKIN: Warm and dry. Mottled bilateral lower extremities including toes bilaterally. Bandage over dorsal aspect of left foot HEAD: Normocephalic. EYES: No scleral icterus. No injection or drainage. NECK: Supple, trachea midline. No JVD or lymphadenopathy. CARDIOVASCULAR: Tachycardic with ectopy/PVCs. S1, S2. No S4.. RESPIRATORY: Breath sounds equal bilaterally. No accessory muscle use. GASTROINTESTINAL: Abdomen soft, non-tender, nondistended. MUSCULOSKELETAL: No skin peripheral. Neuro:Intubated and sedated. Positive corneal reflex. Withdraws to pain.. Assessment and Plan - Assessment and Plan Plan: 1. VDRF 2. Severe septic shock. 3. Left-sided pneumonia. 4. Right upper lobe nodules, ddx ,infectious/inflammatory process versus metastatic disease. 5. Lactic acidosis. 6. Acute kidney injury. 7. Mild elevation in troponin. 8. Small cell lung cancer. 9. 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 10. Chronic obstructive pulmonary disease. 11. History of coronary artery disease. 12. Leukopenia/normocytic anemia/thrombocytopenia 13. Hypocalcemia/hyponatremia/acute 14. Left renal cyst 15. History of right posterior temporal craniotomy and resection of mass in the right temporooccipital low convexities with evidence for recurrent/residual disease similar to previous MRI exam. Plan Neuro: On Fentanyl infusion for sedation. Daily sedation vacation. Acetaminophen 650 by tube every 6 hours as needed fever CT brain revealed. postsurgical features of right posterior temporal craniotomy and resection of mass in the right temporooccipital low convexities with evidence for recurrent/residual disease similar to previous MRI exam. No increased mass effect, midline shift or definitive hemorrhage Pulm: Continue with vent support and maintain sats >92%. Currently on PST trial 09/05 at 40% Bronchodilators, decrease hydrocortisone 50 mg IV every 8 hours. CV: Off Levophed monitor HR and BP keep MAP>65 mmHg. Echo showed EF 50-55% Continue with IVF on D5 water with 75 mEq sodium bicarbonate at 84 cc an hour : Monitor renal function, I's and O's , avoid nephrotoxins left renal cyst on renal US no hydronephrosis Renal is following, d/c bicarb drip GI: on pantoprazole 40 mg IV daily for GI prophylaxis. Continue tube feeds- Nepro with goal rate 40ml/hr ID: Continue abx(vancomycin, Zosyn and azithromycin) Blood and sputum cx: MRSA Strep pneumonia and Legionella urinary AG Endo: SSI with Accu-Cheks for glycemic control Heme: Monitor CBC GI prophylaxis with Protonix 40 mg daily DVT prophylaxis with SCDs only, not on chemical DVT prophylaxis due to previous right craniotomy with brain mass resection. IV [id number] placement right femoral central line by the ED physician 02/08 For possible withdrawal care today CCT 35 mins
[2018-02-11 07:44] LABS: Vancomycin,Trough 18.2 mcg/mL (5.0-10.0)
--- NOTE | 2018-02-11 07:46 | P.PNONC ---
Subjective Interval history: Patient sedated on ventilator. He opens his eyes with stimulation. He is not tracking. Discussed with nursing staff, family is awaiting palliative care evaluation and possible withdrawal ventilator support later today. Objective Vital Signs/Intake & Output: Vital Signs 02/10/18 07:45 02/10/18 08:00 02/10/18 08:15 Temperature 96.6 F L Pulse Rate 75 73 78 Respiratory Rate 9 L 9 L 9 L Blood Pressure 114/54 L 106/60 101/57 L Pulse Oximetry 95 96 95 02/10/18 08:31 02/10/18 08:46 02/10/18 09:00 Temperature Pulse Rate 73 85 85 Respiratory Rate 10 L 13 12 Blood Pressure 146/92 H 121/60 130/60 Pulse Oximetry 97 87 L 90 L 02/10/18 09:15 02/10/18 09:31 02/10/18 09:33 Temperature Pulse Rate 85 89 83 Respiratory Rate 11 L 21 16 Blood Pressure 104/58 L 127/109 H 143/66 H Pulse Oximetry 89 L 92 L 96 02/10/18 09:45 02/10/18 10:00 02/10/18 10:15 Temperature Pulse Rate 81 84 84 Respiratory Rate 15 14 13 Blood Pressure 140/73 123/69 104/56 L Pulse Oximetry 95 96 96 02/10/18 10:30 02/10/18 10:45 02/10/18 11:00 Temperature Pulse Rate 80 84 84 Respiratory Rate 15 14 15 Blood Pressure 109/56 L 117/56 L 103/56 L Pulse Oximetry 96 96 96 02/10/18 11:15 02/10/18 11:30 02/10/18 11:45 Temperature Pulse Rate 88 87 84 Respiratory Rate 13 15 13 Blood Pressure 113/57 L 130/61 122/60 Pulse Oximetry 96 93 L 96 02/10/18 11:56 02/10/18 12:00 02/10/18 12:15 Temperature 97.1 F L Pulse Rate 81 81 Respiratory Rate 16 14 14 Blood Pressure 137/66 124/64 Pulse Oximetry 97 98 98 02/10/18 12:30 02/10/18 12:45 02/10/18 13:00 Temperature Pulse Rate 81 80 83 Respiratory Rate 13 13 20 Blood Pressure 128/62 135/63 154/69 H Pulse Oximetry 98 98 98 02/10/18 13:15 02/10/18 13:30 02/10/18 13:45 Temperature Pulse Rate 88 86 82 Respiratory Rate 15 16 14 Blood Pressure 149/65 H 134/69 128/60 Pulse Oximetry 98 98 98 02/10/18 14:00 02/10/18 14:15 02/10/18 14:30 Temperature Pulse Rate 81 81 88 Respiratory Rate 16 14 15 Blood Pressure 138/63 129/88 137/61 Pulse Oximetry 98 98 97 02/10/18 14:45 02/10/18 15:00 02/10/18 15:15 Temperature Pulse Rate 81 93 H 89 Respiratory Rate 18 17 20 Blood Pressure 145/65 H 99/61 L 113/71 Pulse Oximetry 97 96 96 02/10/18 15:16 02/10/18 15:30 02/10/18 15:40 Temperature Pulse Rate 93 H 94 H 82 Respiratory Rate 20 21 19 Blood Pressure 111/59 L Pulse Oximetry 95 95 02/10/18 15:45 02/10/18 16:00 02/10/18 16:16 Temperature 98.5 F Pulse Rate 95 H 88 100 H Respiratory Rate 16 14 20 Blood Pressure 124/61 110/56 L 111/72 Pulse Oximetry 97 96 94 L 02/10/18 16:31 02/10/18 16:45 02/10/18 17:00 Temperature Pulse Rate 93 H 89 88 Respiratory Rate 22 16 16 Blood Pressure 148/63 H 114/59 L 104/55 L Pulse Oximetry 95 94 L 94 L 02/10/18 17:15 02/10/18 17:31 02/10/18 17:45 Temperature Pulse Rate 102 H 106 H 92 H Respiratory Rate 23 22 17 Blood Pressure 120/62 145/63 H 128/68 Pulse Oximetry 93 L 02/10/18 18:00 02/10/18 18:15 02/10/18 18:30 Temperature Pulse Rate 96 H 97 H 93 H Respiratory Rate 11 L 11 L 12 Blood Pressure 97/52 L 96/53 L 80/45 L Pulse Oximetry 92 L 94 L 94 L 02/10/18 18:33 02/10/18 18:45 02/10/18 19:00 Temperature Pulse Rate 99 H 89 87 Respiratory Rate 12 11 L 11 L Blood Pressure 96/55 L 88/53 L 87/52 L Pulse Oximetry 94 L 95 95 02/10/18 19:15 02/10/18 19:30 02/10/18 19:32 Temperature Pulse Rate 84 88 77 Respiratory Rate 11 L 14 15 Blood Pressure 96/52 L 104/54 L Pulse Oximetry 95 95 98 02/10/18 19:45 02/10/18 20:00 02/10/18 20:15 Temperature 98.6 F Pulse Rate 83 72 82 Respiratory Rate 11 L 13 11 L Blood Pressure 96/53 L 90/50 L 93/54 L Pulse Oximetry 94 L 94 L 94 L 02/10/18 20:30 02/10/18 20:45 02/10/18 21:00 Temperature Pulse Rate 76 74 70 Respiratory Rate 13 13 12 Blood Pressure 77/41 L 81/51 L 85/54 L Pulse Oximetry 94 L 94 L 94 L 02/10/18 21:15 02/10/18 21:30 02/10/18 21:45 Temperature Pulse Rate 72 72 75 Respiratory Rate 14 15 13 Blood Pressure 91/54 L 88/54 L 102/57 L Pulse Oximetry 94 L 95 92 L 02/10/18 22:00 02/10/18 22:15 02/10/18 22:30 Temperature Pulse Rate 78 76 73 Respiratory Rate 11 L 11 L 12 Blood Pressure 124/59 L 113/59 L 98/57 L Pulse Oximetry 93 L 94 L 95 02/10/18 22:45 02/10/18 23:00 02/10/18 23:15 Temperature Pulse Rate 77 75 75 Respiratory Rate 12 12 12 Blood Pressure 115/56 L 104/58 L 103/58 L Pulse Oximetry 95 95 95 02/10/18 23:30 02/10/18 23:45 02/10/18 23:47 Temperature Pulse Rate 70 72 67 Respiratory Rate 12 12 16 Blood Pressure 112/60 117/68 Pulse Oximetry 86 L 95 96 02/11/18 00:00 02/11/18 00:15 02/11/18 00:30 Temperature 97.9 F Pulse Rate 72 73 75 Respiratory Rate 11 L 15 10 L Blood Pressure 109/66 105/58 L 94/55 L Pulse Oximetry 95 96 95 02/11/18 00:45 02/11/18 01:00 02/11/18 01:15 Temperature Pulse Rate 71 76 72 Respiratory Rate 11 L 13 11 L Blood Pressure 102/55 L 97/56 L 97/53 L Pulse Oximetry 96 96 96 02/11/18 01:30 02/11/18 01:45 02/11/18 02:00 Temperature Pulse Rate 70 71 70 Respiratory Rate 14 10 L 13 Blood Pressure 93/56 L 99/57 L 94/55 L Pulse Oximetry 96 96 96 02/11/18 02:15 02/11/18 02:30 02/11/18 02:45 Temperature Pulse Rate 67 70 66 Respiratory Rate 15 12 12 Blood Pressure 109/55 L 103/53 L 97/51 L Pulse Oximetry 96 96 96 02/11/18 03:00 02/11/18 03:15 02/11/18 03:30 Temperature Pulse Rate 66 64 63 Respiratory Rate 12 15 12 Blood Pressure 98/54 L 92/59 L 97/59 L Pulse Oximetry 96 96 96 02/11/18 03:34 02/11/18 03:45 02/11/18 04:00 Temperature 98.4 F Pulse Rate 68 66 Respiratory Rate 14 12 12 Blood Pressure 135/76 117/61 Pulse Oximetry 96 96 96 02/11/18 04:16 02/11/18 06:00 Temperature Pulse Rate 70 65 Respiratory Rate 11 L Blood Pressure 148/63 H Pulse Oximetry 96 Intake & Output 02/10/18 02/11/18 02/11/18 18:59 06:59 18:59 Intake Total 2746 / 2746 1443 / 1443 Output Total 275 / 275 225 / 225 Balance 2471 / 2471 1218 / 1218 Weight 107.4 kg Intake: IV 2220 / 2220 1100 / 1100 Neosynephrine Inj 40 MG In D5W 510 / 510 Inj 496 ML @ 40 MCG/MIN 30 mls/ hr IV.CONT TITRATE PRN Rx#: [id number] Sodium Bicarbonate 8.4% Inj 75 1000 / 1000 1000 / 1000 MEQ In D5W Inj 925 ML @ 84 mls/ hr IV.CONT .[id number] ON LICENSE OF [facility] Rx#: [id number] Azithromycin Inj 500 MG In NS 250 / 250 Inj 250 ML @ 250 mls/hr IV.SIG Q24H ON LICENSE OF [facility] Rx#:[id number] Calcium Chloride Inj 1 GM In NS 110 / 110 Inj 100 ML @ 110 mls/hr IV.SIG ONCE ONE Rx#:[id number] Levophed-Dextrose 4 mg/250 ml 250 / 250 Drip 4 mg In 250 ml @ 2 MCG/MIN 7.5 mls/hr IV.SIG TITRATE PRN Rx#:[id number] Zosyn 3.375 GM Premix 50 ML @ 100 / 100 100 / 100 100 mls/hr IV.SIG Q6H ON LICENSE OF [facility] Rx#: [id number] Oral 526 / 526 Tube Feeding 343 / 343 Output: Urine 150 / 150 Stool 75 / 75 Urine Amount (Catheter) 275 / 275 Indwelling Urethral Catheter 275 / 275 Other: Date of Last Bowel Movement 02/09/18 02/09/18 Result Diagrams: 02/11/18 04:00 02/11/18 04:00 Laboratory Results: Laboratory Results - last 24 hr 02/10/18 02/10/18 02/10/18 05:15 11:31 17:40 WBC RBC Hgb Hct MCV MCH MCHC RDW Plt Count MPV Prelim Diff (Auto) Neut % (Auto) Lymph % (Auto) [place] % (Auto) Eos % (Auto) Baso % (Auto) Neut # (Auto) Lymph # (Auto) [place] # (Auto) Eos # (Auto) Baso # (Auto) WBC Differential Manual diff final Seg Neuts % (Manual) 59 Band Neuts % (Manual) 20 H Lymphocytes % (Manual) 15 Monocytes % (Manual) 6 Abs Neuts (Manual) 2.6 Nucleated RBCs/100 WBC 3 H Differential Comment Platelet Estimate Low L Platelet Morphology Normal Ovalocytes 1+ H Sodium Potassium Chloride Carbon Dioxide Anion Gap BUN Creatinine Estimated GFR POC Glucose 180 H 148 H Random Glucose Calcium Prot Corrected Calcium Phosphorus Magnesium Total Bilirubin AST ALT Alkaline Phosphatase Total Protein Albumin Vancomycin Trough Random Vancomycin 02/10/18 02/11/18 02/11/18 23:31 04:00 04:00 WBC RBC Hgb Hct MCV MCH MCHC RDW Plt Count MPV Prelim Diff (Auto) Neut % (Auto) Lymph % (Auto) [place] % (Auto) Eos % (Auto) Baso % (Auto) Neut # (Auto) Lymph # (Auto) [place] # (Auto) Eos # (Auto) Baso # (Auto) WBC Differential Seg Neuts % (Manual) Band Neuts % (Manual) Lymphocytes % (Manual) Monocytes % (Manual) Abs Neuts (Manual) Nucleated RBCs/100 WBC Differential Comment Platelet Estimate Platelet Morphology Ovalocytes Sodium 135 L Potassium 3.2 L Chloride 90 L Carbon Dioxide 27.9 Anion Gap 17 H BUN 75 H Creatinine 2.70 H Estimated GFR 23 L POC Glucose 250 H Random Glucose 184 H Calcium 6.8 L* D Prot Corrected Calcium 7.8 L D Phosphorus 8.8 H Magnesium 2.3 Total Bilirubin 0.3 AST 88 H ALT 52 Alkaline Phosphatase 68 Total Protein 5.2 L Albumin 1.3 L Vancomycin Trough Cancelled Random Vancomycin Cancelled 02/11/18 04:00 WBC 2.9 L RBC 3.40 L Hgb 9.4 L Hct 28.7 L MCV 84.5 MCH 27.7 MCHC 32.8 RDW 19.8 H Plt Count 71 L MPV 7.8 Prelim Diff (Auto) Slide review pending Neut % (Auto) 87.7 H Lymph % (Auto) 9.0 [place] % (Auto) 3.0 Eos % (Auto) 0.1 Baso % (Auto) 0.2 Neut # (Auto) 2.6 Lymph # (Auto) 0.3 L [place] # (Auto) 0.1 Eos # (Auto) 0.0 Baso # (Auto) 0.0 WBC Differential Seg Neuts % (Manual) Band Neuts % (Manual) Lymphocytes % (Manual) Monocytes % (Manual) Abs Neuts (Manual) Nucleated RBCs/100 WBC Differential Comment . Platelet Estimate Platelet Morphology Ovalocytes Sodium Potassium Chloride Carbon Dioxide Anion Gap BUN Creatinine Estimated GFR POC Glucose Random Glucose Calcium Prot Corrected Calcium Phosphorus Magnesium Total Bilirubin AST ALT Alkaline Phosphatase Total Protein Albumin Vancomycin Trough Random Vancomycin Culture Results: Microbiology 02/09/18 12:15 Gram Stain - Final Sputum - Oral Tracheal Aspirate Sputum Culture - Preliminary S. aureus MRSA 02/08/18 06:36 Aerobic Blood Culture - Preliminary Blood - Peripheral No growth in 2 days Anaerobic Blood Culture - Preliminary S. aureus MRSA 02/08/18 06:31 Aerobic Blood Culture - Preliminary Blood - Peripheral No growth in 2 days Anaerobic Blood Culture - Preliminary No growth in 2 days 02/08/18 06:35 Urine Culture - Final Catheterized Urine No growth in 48 hours 02/08/18 06:35 Streptococcus pneumoniae Antigen (M - Final Urine - Catheterized Urine Presumptive negative for streptococcus pneumoniae antigen, suggesting no current or recent infection. Infection due to Streptococcus pneumoniae cannot be ruled out since the antigen present in the sample may be below the detection limit of the test. 02/08/18 06:35 Legionella Antigen - Final Urine - Catheterized Urine Presumptive negative for Legionella pneumophila serogroup 1 antigen in urine, suggesting no recent or recurrent infection. Infection due to Legionella cannot be ruled out since other serogroups and species may cause disease, antigen may not be present in urine in early infection, and the level of antigen present in the urine may be below the detection limit of the test. Imaging Studies: Impressions Chest X-Ray 02/11/18 06:00 CONCLUSION: No significant interval change. Medications: Active Medications Generic Name Dose Route Start Last Admin Trade Name Freq PRN Reason Stop Dose Admin Albuterol 1 ampul 02/08/18 08:00 02/11/18 03:34 Duoneb Neb (Radha) NEB 1 ampul Q4HR NEB RADHA Administration Artificial Tears 1 drop 02/10/18 10:00 02/11/18 01:15 Tears Naturale Opth Drops EACH EYE 1 drop Q8H RADHA Administration Chlorhexidine Gluconate 3 pack 02/09/18 04:00 02/11/18 03:54 Chlorhexidine 2% Cloth TOPICAL 02/14/18 03:59 Not Given DAILY@0400 RADHA Hydrocortisone Sodium Succinate 100 mg 02/08/18 14:00 02/11/18 05:05 Solucortef Inj IV.PUSH 100 mg Q8HR RADHA Administration Fentanyl 2,500 mcg in 250 mls @ 5 mls/hr 02/08/18 07:29 02/09/18 21:33 Fentanyl 10 Mcg/Ml Premix Drip IV.SIG 0 mcg/hr TITRATE PRN 0 mls/hr Per Protocol Titration Protocol 50 MCG/HR Azithromycin 500 mg/ Sodium 250 mls @ 250 mls/hr 02/08/18 08:00 02/10/18 18: 59 Chloride IV.SIG Infused Q24H RADHA Infusion Vancomycin HCl 1,250 mg/ 262.5 mls @ 262.5 mls/hr 02/09/18 04:00 02/09/18 05: 06 Sodium Chloride IV.SIG Infused Q24H RADHA Infusion Piperacillin/Tazobactam/Dextrose 50 mls @ 100 mls/hr 02/09/18 20:00 02/11/18 03:55 Zosyn 3.375 Gm Premix IV.SIG Infused Q6H RADHA Infusion Norepinephrine Bitartrate 16 250 mls @ 1.87 mls/hr 02/10/18 09:57 02/10/18 14 :51 mg/ Dextrose IV.CONT 2 mcg/min TITRATE PRN 1.87 mls/hr See Protocol Administration Protocol 2 MCG/MIN Insulin Human Regular 0 units 02/08/18 12:00 02/11/18 06:11 Novolin R Correctional Sugar Inj SQ Not Given Q6HR RADHA Protocol Pantoprazole Sodium 40 mg 02/08/18 09:00 02/10/18 08:29 Protonix Inj IV.PUSH 40 mg DAILY RADHA Administration Objective Remarks: GENERAL: Sedated on ventilator. SKIN: Warm and dry. HEAD: Normocephalic. EYES: No scleral icterus. No injection or drainage. NECK: Supple, trachea midline. No JVD or lymphadenopathy. LYMPHATIC: No adenopathy. CARDIOVASCULAR: Regular rate and rhythm without murmurs. RESPIRATORY: Breath sounds equal bilaterally. No accessory muscle use. GASTROINTESTINAL: Abdomen soft, non-tender, nondistended. EXTREMITIES: No cyanosis, diffuse edema. MUSCULOSKELETAL: Adequate muscle tone. NEUROLOGICAL: Open eyes but not tracking. Assessment/Plan - Plan Mr. 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 Patient was recommended to begin radiation therapy first and then he was planning treatment with Rituxan and Temodar. The patient was brought to the hospital for altered mental status and was intubated in the field. Recommendations: 1. Septic shock, remains intubated. Blood culture growing MRSA. Continues on antibiotics, management per conventions reservationist. 2. B-cell non-Hodgkin's lymphoma, status post cranial mass resection, patient was pending the start of radiation treatment. Treatment currently on hold for acute change in status. His overall prognosis is very poor. He has aggressive STEEPLECHASE JOCKEY lymphoma and tumor appeared to have recurred after resection. Patient's family has elected to make him a DNR and palliative care is following. Possible withdrawal from ventilator support today pending family decision.. 3. Critical care management per conventions reservationist.
[2018-02-11 08:11] LABS: Lymphocytes 10 % (9-44); Monocytes 4 % (0-8); Toxic Granulation 2+
[2018-02-11 08:12] LABS: Dohle Bodies Present; Platelet Morphology Normal (Normal)
[2018-02-11 08:13] LABS: Ovalocytes 1+
[2018-02-11] MEDS: Azithromycin Inj 500 MG in Sodium Chlor 0.9% Inj 250 ML IV.SIG SCH (08:49)
[2018-02-11] MEDS ORDERED: Bisacodyl 10 MG Supp RECTAL PRN (10:18)
[2018-02-11] MEDS ORDERED: Hyoscyamine Inj 0.5 MG/ML Ampul IV.PUSH ONE (10:18)
[2018-02-11] MEDS ORDERED: Morphine Inj 4 MG/ML Vial IV.PUSH PRN (10:18)
[2018-02-11] MEDS ORDERED: Morphine Inj 4 MG/ML Vial IV.PUSH ONE (10:18)
[2018-02-11] MEDS ORDERED: Acetaminophen 650 MG Supp RECTAL PRN (10:18)
[2018-02-11] MEDS ORDERED: Hyoscyamine Inj 0.5 MG/ML Ampul IV.PUSH PRN (10:18)
[2018-02-11] MEDS ORDERED: Morphine Sulfate Inj 8 MG/ML Vial IV.PUSH ONE (10:18)
--- NOTE | 2018-02-11 10:52 | P.PNPAL ---
Reason for Visit Reason for visit: a. To assist with evaluation and management of symptoms including: pain, dyspnea b. To assist medical decision maker(s) with: better understanding of current medical conditions; weighing benefits/burdens of medical treatment options; making medical treatment decisions Subjective Subjective/Interval History: Patient seen today for follow-up of symptom management for pain, dyspnea and assisting family in goals of medical treatment. He remains on mechanical ventilator PRVC/AC mode, rate 14%. Currently not breathing over the ventilator. Sputum specimen positive for MRSA. Receiving DuoNeb. Patient is unresponsive on ventilator, eyes open, not attempting to communicate and is unable to quantify or qualify his discomfort. He has been having multiple episodes of diarrhea sacral wound and is now using rectal tube for bowel movement diversion and skin integrity. He has multiple invasive lines and tubes and restraints him at elevated risk for discomfort pain. . Family/Friend Interactions: Spoke with patient's , Frederick, at bedside who endorses that the patient in prior conversations had stated that this quality of life not adequate for his desires. Was his wish to be withdrawn from ventilator support if no meaningful recovery were likely. At this time since endorses wanting compassionate withdrawal from ventilator support with transition to comfort measures. Consents signed and on the chart. Reviewed anticipatory guidance regarding upcoming procedures . All questions answered. . Advance Directives Health Care Surrogate: Copy in medical record Health Care Surrogate Name and Number: Frederick Yuan Objective Vital Signs: Vital Signs 02/10/18 10:45 02/10/18 11:00 02/10/18 11:15 Temperature Pulse Rate 84 84 88 Respiratory Rate 14 15 13 Blood Pressure 117/56 L 103/56 L 113/57 L Pulse Oximetry 96 96 96 02/10/18 11:30 02/10/18 11:45 02/10/18 11:56 Temperature Pulse Rate 87 84 Respiratory Rate 15 13 16 Blood Pressure 130/61 122/60 Pulse Oximetry 93 L 96 97 02/10/18 12:00 02/10/18 12:15 02/10/18 12:30 Temperature 97.1 F L Pulse Rate 81 81 81 Respiratory Rate 14 14 13 Blood Pressure 137/66 124/64 128/62 Pulse Oximetry 98 98 98 02/10/18 12:45 02/10/18 13:00 02/10/18 13:15 Temperature Pulse Rate 80 83 88 Respiratory Rate 13 20 15 Blood Pressure 135/63 154/69 H 149/65 H Pulse Oximetry 98 98 98 02/10/18 13:30 02/10/18 13:45 02/10/18 14:00 Temperature Pulse Rate 86 82 81 Respiratory Rate 16 14 16 Blood Pressure 134/69 128/60 138/63 Pulse Oximetry 98 98 98 02/10/18 14:15 02/10/18 14:30 02/10/18 14:45 Temperature Pulse Rate 81 88 81 Respiratory Rate 14 15 18 Blood Pressure 129/88 137/61 145/65 H Pulse Oximetry 98 97 97 02/10/18 15:00 02/10/18 15:15 02/10/18 15:16 Temperature Pulse Rate 93 H 89 93 H Respiratory Rate 17 20 20 Blood Pressure 99/61 L 113/71 Pulse Oximetry 96 96 02/10/18 15:30 02/10/18 15:40 02/10/18 15:45 Temperature Pulse Rate 94 H 82 95 H Respiratory Rate 21 19 16 Blood Pressure 111/59 L 124/61 Pulse Oximetry 95 95 97 02/10/18 16:00 02/10/18 16:16 02/10/18 16:31 Temperature 98.5 F Pulse Rate 88 100 H 93 H Respiratory Rate 14 20 22 Blood Pressure 110/56 L 111/72 148/63 H Pulse Oximetry 96 94 L 95 02/10/18 16:45 02/10/18 17:00 02/10/18 17:15 Temperature Pulse Rate 89 88 102 H Respiratory Rate 16 16 23 Blood Pressure 114/59 L 104/55 L 120/62 Pulse Oximetry 94 L 94 L 02/10/18 17:31 02/10/18 17:45 02/10/18 18:00 Temperature Pulse Rate 106 H 92 H 96 H Respiratory Rate 22 17 11 L Blood Pressure 145/63 H 128/68 97/52 L Pulse Oximetry 93 L 92 L 02/10/18 18:15 02/10/18 18:30 02/10/18 18:33 Temperature Pulse Rate 97 H 93 H 99 H Respiratory Rate 11 L 12 12 Blood Pressure 96/53 L 80/45 L 96/55 L Pulse Oximetry 94 L 94 L 94 L 02/10/18 18:45 02/10/18 19:00 02/10/18 19:15 Temperature Pulse Rate 89 87 84 Respiratory Rate 11 L 11 L 11 L Blood Pressure 88/53 L 87/52 L 96/52 L Pulse Oximetry 95 95 95 02/10/18 19:30 02/10/18 19:32 02/10/18 19:45 Temperature Pulse Rate 88 77 83 Respiratory Rate 14 15 11 L Blood Pressure 104/54 L 96/53 L Pulse Oximetry 95 98 94 L 02/10/18 20:00 02/10/18 20:15 02/10/18 20:30 Temperature 98.6 F Pulse Rate 72 82 76 Respiratory Rate 13 11 L 13 Blood Pressure 90/50 L 93/54 L 77/41 L Pulse Oximetry 94 L 94 L 94 L 02/10/18 20:45 02/10/18 21:00 02/10/18 21:15 Temperature Pulse Rate 74 70 72 Respiratory Rate 13 12 14 Blood Pressure 81/51 L 85/54 L 91/54 L Pulse Oximetry 94 L 94 L 94 L 02/10/18 21:30 02/10/18 21:45 02/10/18 22:00 Temperature Pulse Rate 72 75 78 Respiratory Rate 15 13 11 L Blood Pressure 88/54 L 102/57 L 124/59 L Pulse Oximetry 95 92 L 93 L 02/10/18 22:15 02/10/18 22:30 02/10/18 22:45 Temperature Pulse Rate 76 73 77 Respiratory Rate 11 L 12 12 Blood Pressure 113/59 L 98/57 L 115/56 L Pulse Oximetry 94 L 95 95 02/10/18 23:00 02/10/18 23:15 02/10/18 23:30 Temperature Pulse Rate 75 75 70 Respiratory Rate 12 12 12 Blood Pressure 104/58 L 103/58 L 112/60 Pulse Oximetry 95 95 86 L 02/10/18 23:45 02/10/18 23:47 02/11/18 00:00 Temperature 97.9 F Pulse Rate 72 67 72 Respiratory Rate 12 16 11 L Blood Pressure 117/68 109/66 Pulse Oximetry 95 96 95 02/11/18 00:15 02/11/18 00:30 02/11/18 00:45 Temperature Pulse Rate 73 75 71 Respiratory Rate 15 10 L 11 L Blood Pressure 105/58 L 94/55 L 102/55 L Pulse Oximetry 96 95 96 02/11/18 01:00 02/11/18 01:15 02/11/18 01:30 Temperature Pulse Rate 76 72 70 Respiratory Rate 13 11 L 14 Blood Pressure 97/56 L 97/53 L 93/56 L Pulse Oximetry 96 96 96 02/11/18 01:45 02/11/18 02:00 02/11/18 02:15 Temperature Pulse Rate 71 70 67 Respiratory Rate 10 L 13 15 Blood Pressure 99/57 L 94/55 L 109/55 L Pulse Oximetry 96 96 96 02/11/18 02:30 02/11/18 02:45 02/11/18 03:00 Temperature Pulse Rate 70 66 66 Respiratory Rate 12 12 12 Blood Pressure 103/53 L 97/51 L 98/54 L Pulse Oximetry 96 96 96 02/11/18 03:15 02/11/18 03:30 02/11/18 03:34 Temperature Pulse Rate 64 63 Respiratory Rate 15 12 14 Blood Pressure 92/59 L 97/59 L Pulse Oximetry 96 96 96 02/11/18 03:45 02/11/18 04:00 02/11/18 04:16 Temperature 98.4 F Pulse Rate 68 66 70 Respiratory Rate 12 12 11 L Blood Pressure 135/76 117/61 148/63 H Pulse Oximetry 96 96 96 02/11/18 04:30 02/11/18 04:45 02/11/18 05:00 Temperature Pulse Rate 72 75 67 Respiratory Rate 14 14 13 Blood Pressure 116/59 L 122/59 L 95/54 L Pulse Oximetry 96 96 95 02/11/18 05:15 02/11/18 05:30 02/11/18 05:45 Temperature Pulse Rate 73 79 63 Respiratory Rate 12 12 14 Blood Pressure 105/56 L 104/56 L 97/56 L Pulse Oximetry 96 96 96 02/11/18 06:00 02/11/18 06:16 02/11/18 06:30 Temperature Pulse Rate 77 69 65 Respiratory Rate 12 13 13 Blood Pressure 91/50 L 107/55 L 102/52 L Pulse Oximetry 95 96 96 02/11/18 06:45 02/11/18 07:00 02/11/18 07:01 Temperature Pulse Rate 72 70 67 Respiratory Rate 13 12 15 Blood Pressure 81/50 L 97/62 L Pulse Oximetry 95 96 96 02/11/18 07:22 02/11/18 07:30 02/11/18 07:46 Temperature Pulse Rate 69 71 76 Respiratory Rate 12 12 13 Blood Pressure 123/63 133/63 131/71 Pulse Oximetry 97 96 96 02/11/18 07:52 02/11/18 08:00 02/11/18 08:16 Temperature 98.6 F Pulse Rate 67 76 Respiratory Rate 14 11 L 11 L Blood Pressure 130/59 L 139/65 Pulse Oximetry 95 97 95 02/11/18 08:31 02/11/18 08:45 02/11/18 09:00 Temperature Pulse Rate 67 73 71 Respiratory Rate 12 11 L 12 Blood Pressure 129/59 L 126/60 117/67 Pulse Oximetry 96 95 87 L 02/11/18 09:15 02/11/18 09:30 Temperature Pulse Rate 72 78 Respiratory Rate 13 12 Blood Pressure 127/57 L 130/60 Pulse Oximetry 96 84 L Intake & Output 02/10/18 02/11/18 02/11/18 18:59 06:59 18:59 Intake Total 2746 / 2746 1443 / 1443 Output Total 275 / 275 225 / 225 Balance 2471 / 2471 1218 / 1218 Weight 236 lb 12.423 oz Intake: IV 2220 / 2220 1100 / 1100 Neosynephrine Inj 40 MG In D5W 510 / 510 Inj 496 ML @ 40 MCG/MIN 30 mls/ hr IV.CONT TITRATE PRN Rx#: [id number] Sodium Bicarbonate 8.4% Inj 75 1000 / 1000 1000 / 1000 MEQ In D5W Inj 925 ML @ 84 mls/ hr IV.CONT .[id number] [facility] Rx#: [id number] Azithromycin Inj 500 MG In NS 250 / 250 Inj 250 ML @ 250 mls/hr IV.SIG Q24H [facility] Rx#:[id number] Calcium Chloride Inj 1 GM In NS 110 / 110 Inj 100 ML @ 110 mls/hr IV.SIG ONCE ONE Rx#:[id number] Levophed-Dextrose 4 mg/250 ml 250 / 250 Drip 4 mg In 250 ml @ 2 MCG/MIN 7.5 mls/hr IV.SIG TITRATE PRN Rx#:[id number] Zosyn 3.375 GM Premix 50 ML @ 100 / 100 100 / 100 100 mls/hr IV.SIG Q6H [facility] Rx#: [id number] Oral 526 / 526 Tube Feeding 343 / 343 Output: Urine 150 / 150 Stool 75 / 75 Urine Amount (Catheter) 275 / 275 Indwelling Urethral Catheter 275 / 275 Other: Date of Last Bowel Movement 02/09/18 02/09/18 02/09/18 Physical Exam: CONSTITUTIONAL/GENERAL: This is an adequately nourished, elderly male patient currently intubated on mechanical ventilation TUBES/LINES/DRAINS: CVL, PIV, Chaudhry, ETT, OGT, soft-restraints NECK: Trachea midline. Supple, nontender. No palpable thyroid enlargement or nodularity. CARDIOVASCULAR: Regular rhythm, controlled rate S1,S2. Peripheral pulses symmetric. RESPIRATORY/CHEST: Intubated on mechanical vent. Coarse breath sounds. GASTROINTESTINAL: Abdomen soft, non-tender, nondistended. No guarding. Bowel sounds present. Dignity shield in place. GENITOURINARY: Without palpable bladder distension. Chaudhry catheter in place. MUSCULOSKELETAL: Extremities without clubbing, cyanosis. Feet cool to touch with slight mottling NEUROLOGICAL: Unresponsive PSYCHIATRIC: Unresponsive. Diagnostic Tests Laboratory: Laboratory Results - last 72 hr 02/08/18 02/08/18 02/08/18 11:00 11:52 12:58 WBC RBC Hgb Hct MCV MCH MCHC RDW Plt Count MPV Prelim Diff (Auto) Neut % (Auto) Lymph % (Auto) [place] % (Auto) Eos % (Auto) Baso % (Auto) Neut # (Auto) Lymph # (Auto) [place] # (Auto) Eos # (Auto) Baso # (Auto) WBC Differential Seg Neuts % (Manual) Band Neuts % (Manual) Lymphocytes % (Manual) Monocytes % (Manual) Eosinophils % (Manual) Metamyelocytes % (Man) Myelocytes % (Man) Abs Neuts (Manual) Nucleated RBCs/100 WBC Differential Comment Toxic Granulation Dohle Bodies Platelet Estimate Platelet Morphology Basophilic Stippling Ovalocytes Keratocytes Puncture Site Left radial Patient Temperature 98.6 O2 Saturation 91 ABG pH 7.27 L* ABG pCO2 38 ABG pO2 72 ABG HCO3 17 L ABG O2 Content 15.1 ABG Base Excess -8.5 L ABG Methemoglobin 1.6 Rob Test Present Hemoglobin 11.8 L Carboxyhemoglobin 0.9 O2 Delivery Device Ventilator Vent Setting Ac16/500/+10 Inspired O2 100 Critical Value Yes Sodium Potassium Chloride Carbon Dioxide Anion Gap BUN Creatinine Estimated GFR POC Glucose 104 Random Glucose Lactic Acid Calcium Prot Corrected Calcium Phosphorus Magnesium Total Bilirubin AST ALT Alkaline Phosphatase Troponin I Cancelled Total Protein Albumin Ur Random Creatinine Ur Random Sodium Nasal Screen MRSA (PCR) Vancomycin Trough Random Vancomycin 02/08/18 02/08/18 02/08/18 12:58 12:58 12:58 WBC 8.6 D RBC 4.14 L Hgb 11.8 L Hct 36.3 L MCV 87.7 MCH 28.5 MCHC 32.5 RDW 21.7 H Plt Count 163 MPV 7.9 Prelim Diff (Auto) Slide review pending Neut % (Auto) 86.0 H Lymph % (Auto) 10.7 [place] % (Auto) 3.2 Eos % (Auto) 0.0 Baso % (Auto) 0.1 Neut # (Auto) 7.4 Lymph # (Auto) 0.9 L [place] # (Auto) 0.3 Eos # (Auto) 0.0 Baso # (Auto) 0.0 WBC Differential Manual diff final Seg Neuts % (Manual) 46 Band Neuts % (Manual) 45 H Lymphocytes % (Manual) 5 L Monocytes % (Manual) 1 Eosinophils % (Manual) 1 Metamyelocytes % (Man) 1 Myelocytes % (Man) 1 H Abs Neuts (Manual) 8.0 H Nucleated RBCs/100 WBC 1 H Differential Comment . Toxic Granulation Dohle Bodies Present H Platelet Estimate Normal Platelet Morphology Normal Basophilic Stippling Ovalocytes Keratocytes Puncture Site Patient Temperature O2 Saturation ABG pH ABG pCO2 ABG pO2 ABG HCO3 ABG O2 Content ABG Base Excess ABG Methemoglobin Rob Test Hemoglobin Carboxyhemoglobin O2 Delivery Device Vent Setting Inspired O2 Critical Value Sodium 142 Potassium 5.4 H D Chloride 109 H Carbon Dioxide 19.3 L Anion Gap 14 BUN 39 H Creatinine 1.76 H Estimated GFR 38 L POC Glucose Random Glucose 112 H Lactic Acid 4.3 H* Calcium 7.2 L* Prot Corrected Calcium 8.1 L Phosphorus Magnesium Total Bilirubin 0.4 AST 67 H ALT 34 Alkaline Phosphatase 45 Troponin I 0.38 H Total Protein 5.4 L Albumin 1.9 L Ur Random Creatinine Ur Random Sodium Nasal Screen MRSA (PCR) Vancomycin Trough Random Vancomycin 02/08/18 02/08/18 02/08/18 17:17 18:05 19:29 WBC RBC Hgb Hct MCV MCH MCHC RDW Plt Count MPV Prelim Diff (Auto) Neut % (Auto) Lymph % (Auto) [place] % (Auto) Eos % (Auto) Baso % (Auto) Neut # (Auto) Lymph # (Auto) [place] # (Auto) Eos # (Auto) Baso # (Auto) WBC Differential Seg Neuts % (Manual) Band Neuts % (Manual) Lymphocytes % (Manual) Monocytes % (Manual) Eosinophils % (Manual) Metamyelocytes % (Man) Myelocytes % (Man) Abs Neuts (Manual) Nucleated RBCs/100 WBC Differential Comment Toxic Granulation Dohle Bodies Platelet Estimate Platelet Morphology Basophilic Stippling Ovalocytes Keratocytes Puncture Site Patient Temperature O2 Saturation ABG pH ABG pCO2 ABG pO2 ABG HCO3 ABG O2 Content ABG Base Excess ABG Methemoglobin Rob Test Hemoglobin Carboxyhemoglobin O2 Delivery Device Vent Setting Inspired O2 Critical Value Sodium Potassium Chloride Carbon Dioxide Anion Gap BUN Creatinine Estimated GFR POC Glucose 203 H Random Glucose Lactic Acid 4.4 H* Calcium Prot Corrected Calcium Phosphorus Magnesium Total Bilirubin AST ALT Alkaline Phosphatase Troponin I 0.33 H Total Protein Albumin Ur Random Creatinine Ur Random Sodium Nasal Screen MRSA (PCR) Vancomycin Trough Random Vancomycin 02/08/18 02/08/18 02/08/18 20:00 20:10 23:08 WBC RBC Hgb Hct MCV MCH MCHC RDW Plt Count MPV Prelim Diff (Auto) Neut % (Auto) Lymph % (Auto) [place] % (Auto) Eos % (Auto) Baso % (Auto) Neut # (Auto) Lymph # (Auto) [place] # (Auto) Eos # (Auto) Baso # (Auto) WBC Differential Seg Neuts % (Manual) Band Neuts % (Manual) Lymphocytes % (Manual) Monocytes % (Manual) Eosinophils % (Manual) Metamyelocytes % (Man) Myelocytes % (Man) Abs Neuts (Manual) Nucleated RBCs/100 WBC Differential Comment Toxic Granulation Dohle Bodies Platelet Estimate Platelet Morphology Basophilic Stippling Ovalocytes Keratocytes Puncture Site Patient Temperature O2 Saturation ABG pH ABG pCO2 ABG pO2 ABG HCO3 ABG O2 Content ABG Base Excess ABG Methemoglobin Rob Test Hemoglobin Carboxyhemoglobin O2 Delivery Device Vent Setting Inspired O2 Critical Value Sodium Potassium Chloride Carbon Dioxide Anion Gap BUN Creatinine Estimated GFR POC Glucose 188 H 235 H Random Glucose Lactic Acid Calcium Prot Corrected Calcium Phosphorus Magnesium Total Bilirubin AST ALT Alkaline Phosphatase Troponin I Total Protein Albumin Ur Random Creatinine Ur Random Sodium Nasal Screen MRSA (PCR) Mrsa detected Vancomycin Trough Random Vancomycin 11/01/1702/09/18 02/09/18 04:00 04:00 09:30 WBC 10.1 RBC 3.99 L Hgb 11.2 L Hct 34.3 L MCV 86.1 MCH 28.0 MCHC 32.5 RDW 21.3 H Plt Count 138 L MPV 7.6 Prelim Diff (Auto) Slide review pending Neut % (Auto) 91.7 H Lymph % (Auto) 5.0 L [place] % (Auto) 3.0 Eos % (Auto) 0.1 Baso % (Auto) 0.2 Neut # (Auto) 9.3 H Lymph # (Auto) 0.5 L [place] # (Auto) 0.3 Eos # (Auto) 0.0 Baso # (Auto) 0.0 WBC Differential Manual diff final Seg Neuts % (Manual) 24 Band Neuts % (Manual) 35 H Lymphocytes % (Manual) 9 Monocytes % (Manual) 1 Eosinophils % (Manual) Metamyelocytes % (Man) 30 H Myelocytes % (Man) 1 H Abs Neuts (Manual) 9.1 H Nucleated RBCs/100 WBC Differential Comment . Toxic Granulation Dohle Bodies Platelet Estimate Low L Platelet Morphology Normal Basophilic Stippling Faint H Ovalocytes 1+ H Keratocytes Occ H Puncture Site Patient Temperature O2 Saturation ABG pH ABG pCO2 ABG pO2 ABG HCO3 ABG O2 Content ABG Base Excess ABG Methemoglobin Rob Test Hemoglobin Carboxyhemoglobin O2 Delivery Device Vent Setting Inspired O2 Critical Value Sodium 140 Potassium 5.6 H Chloride 103 Carbon Dioxide 23.7 Anion Gap 13 BUN 50 H Creatinine 2.11 H Estimated GFR 31 L POC Glucose Random Glucose 182 H Lactic Acid 1.9 Calcium 6.8 L* Prot Corrected Calcium 7.8 L Phosphorus 8.6 H Magnesium 2.2 Total Bilirubin 0.4 AST 102 H ALT 45 Alkaline Phosphatase 52 Troponin I Total Protein 5.1 L Albumin 1.5 L Ur Random Creatinine Ur Random Sodium Nasal Screen MRSA (PCR) Vancomycin Trough Random Vancomycin 02/09/18 02/09/18 02/09/18 11:40 12:15 12:15 WBC RBC Hgb Hct MCV MCH MCHC RDW Plt Count MPV Prelim Diff (Auto) Neut % (Auto) Lymph % (Auto) [place] % (Auto) Eos % (Auto) Baso % (Auto) Neut # (Auto) Lymph # (Auto) [place] # (Auto) Eos # (Auto) Baso # (Auto) WBC Differential Seg Neuts % (Manual) Band Neuts % (Manual) Lymphocytes % (Manual) Monocytes % (Manual) Eosinophils % (Manual) Metamyelocytes % (Man) Myelocytes % (Man) Abs Neuts (Manual) Nucleated RBCs/100 WBC Differential Comment Toxic Granulation Dohle Bodies Platelet Estimate Platelet Morphology Basophilic Stippling Ovalocytes Keratocytes Puncture Site Patient Temperature O2 Saturation ABG pH ABG pCO2 ABG pO2 ABG HCO3 ABG O2 Content ABG Base Excess ABG Methemoglobin Rob Test Hemoglobin Carboxyhemoglobin O2 Delivery Device Vent Setting Inspired O2 Critical Value Sodium Potassium Chloride Carbon Dioxide Anion Gap BUN Creatinine Estimated GFR POC Glucose 198 H Random Glucose Lactic Acid Calcium Prot Corrected Calcium Phosphorus Magnesium Total Bilirubin AST ALT Alkaline Phosphatase Troponin I Total Protein Albumin Ur Random Creatinine 80 Ur Random Sodium Cancelled 13 Nasal Screen MRSA (PCR) Vancomycin Trough Random Vancomycin 02/09/18 02/09/18 02/09/18 16:15 16:20 17:38 WBC RBC Hgb Hct MCV MCH MCHC RDW Plt Count MPV Prelim Diff (Auto) Neut % (Auto) Lymph % (Auto) [place] % (Auto) Eos % (Auto) Baso % (Auto) Neut # (Auto) Lymph # (Auto) [place] # (Auto) Eos # (Auto) Baso # (Auto) WBC Differential Seg Neuts % (Manual) Band Neuts % (Manual) Lymphocytes % (Manual) Monocytes % (Manual) Eosinophils % (Manual) Metamyelocytes % (Man) Myelocytes % (Man) Abs Neuts (Manual) Nucleated RBCs/100 WBC Differential Comment Toxic Granulation Dohle Bodies Platelet Estimate Platelet Morphology Basophilic Stippling Ovalocytes Keratocytes Puncture Site Right radial Patient Temperature 98.6 O2 Saturation 90 ABG pH 7.36 L ABG pCO2 39 ABG pO2 64 ABG HCO3 22 ABG O2 Content 13.4 ABG Base Excess -3.0 L ABG Methemoglobin 1.4 Rob Test Present Hemoglobin 10.5 L Carboxyhemoglobin 1.1 O2 Delivery Device Ventilator Vent Setting Prvc/ac500/12/6peep Inspired O2 50 Critical Value No Sodium Potassium 4.9 Chloride Carbon Dioxide Anion Gap BUN Creatinine Estimated GFR POC Glucose 171 H Random Glucose Lactic Acid Calcium Prot Corrected Calcium Phosphorus Magnesium Total Bilirubin AST ALT Alkaline Phosphatase Troponin I Total Protein Albumin Ur Random Creatinine Ur Random Sodium Nasal Screen MRSA (PCR) Vancomycin Trough Random Vancomycin 02/09/18 02/10/18 02/10/18 23:33 05:12 05:15 WBC RBC Hgb Hct MCV MCH MCHC RDW Plt Count MPV Prelim Diff (Auto) Neut % (Auto) Lymph % (Auto) [place] % (Auto) Eos % (Auto) Baso % (Auto) Neut # (Auto) Lymph # (Auto) [place] # (Auto) Eos # (Auto) Baso # (Auto) WBC Differential Seg Neuts % (Manual) Band Neuts % (Manual) Lymphocytes % (Manual) Monocytes % (Manual) Eosinophils % (Manual) Metamyelocytes % (Man) Myelocytes % (Man) Abs Neuts (Manual) Nucleated RBCs/100 WBC Differential Comment Toxic Granulation Dohle Bodies Platelet Estimate Platelet Morphology Basophilic Stippling Ovalocytes Keratocytes Puncture Site Patient Temperature O2 Saturation ABG pH ABG pCO2 ABG pO2 ABG HCO3 ABG O2 Content ABG Base Excess ABG Methemoglobin Rob Test Hemoglobin Carboxyhemoglobin O2 Delivery Device Vent Setting Inspired O2 Critical Value Sodium 135 L Potassium 3.8 D Chloride 97 L Carbon Dioxide 24.2 Anion Gap 14 BUN 59 H Creatinine 2.47 H Estimated GFR 26 L POC Glucose 198 H 223 H Random Glucose 177 H Lactic Acid Calcium 6.0 L* D Prot Corrected Calcium 7.0 L* D Phosphorus 8.7 H Magnesium 2.0 Total Bilirubin 0.3 AST 99 H ALT 53 Alkaline Phosphatase 55 Troponin I Total Protein 4.9 L Albumin 1.3 L Ur Random Creatinine Ur Random Sodium Nasal Screen MRSA (PCR) Vancomycin Trough Random Vancomycin 19.7 02/10/18 02/10/18 02/10/18 05:15 11:31 17:40 WBC 3.3 L RBC 3.42 L Hgb 9.7 L Hct 28.9 L MCV 84.4 MCH 28.4 MCHC 33.7 RDW 21.3 H Plt Count 93 L D MPV 7.5 Prelim Diff (Auto) Slide review pending Neut % (Auto) 86.3 H Lymph % (Auto) 10.4 [place] % (Auto) 2.9 Eos % (Auto) 0.1 Baso % (Auto) 0.3 Neut # (Auto) 2.8 Lymph # (Auto) 0.3 L [place] # (Auto) 0.1 Eos # (Auto) 0.0 Baso # (Auto) 0.0 WBC Differential Manual diff final Seg Neuts % (Manual) 59 Band Neuts % (Manual) 20 H Lymphocytes % (Manual) 15 Monocytes % (Manual) 6 Eosinophils % (Manual) Metamyelocytes % (Man) Myelocytes % (Man) Abs Neuts (Manual) 2.6 Nucleated RBCs/100 WBC 3 H Differential Comment . Toxic Granulation Dohle Bodies Platelet Estimate Low L Platelet Morphology Normal Basophilic Stippling Ovalocytes 1+ H Keratocytes Puncture Site Patient Temperature O2 Saturation ABG pH ABG pCO2 ABG pO2 ABG HCO3 ABG O2 Content ABG Base Excess ABG Methemoglobin Rob Test Hemoglobin Carboxyhemoglobin O2 Delivery Device Vent Setting Inspired O2 Critical Value Sodium Potassium Chloride Carbon Dioxide Anion Gap BUN Creatinine Estimated GFR POC Glucose 180 H 148 H Random Glucose Lactic Acid Calcium Prot Corrected Calcium Phosphorus Magnesium Total Bilirubin AST ALT Alkaline Phosphatase Troponin I Total Protein Albumin Ur Random Creatinine Ur Random Sodium Nasal Screen MRSA (PCR) Vancomycin Trough Random Vancomycin 02/10/18 02/11/18 02/11/18 23:31 04:00 04:00 WBC RBC Hgb Hct MCV MCH MCHC RDW Plt Count MPV Prelim Diff (Auto) Neut % (Auto) Lymph % (Auto) [place] % (Auto) Eos % (Auto) Baso % (Auto) Neut # (Auto) Lymph # (Auto) [place] # (Auto) Eos # (Auto) Baso # (Auto) WBC Differential Seg Neuts % (Manual) Band Neuts % (Manual) Lymphocytes % (Manual) Monocytes % (Manual) Eosinophils % (Manual) Metamyelocytes % (Man) Myelocytes % (Man) Abs Neuts (Manual) Nucleated RBCs/100 WBC Differential Comment Toxic Granulation Dohle Bodies Platelet Estimate Platelet Morphology Basophilic Stippling Ovalocytes Keratocytes Puncture Site Patient Temperature O2 Saturation ABG pH ABG pCO2 ABG pO2 ABG HCO3 ABG O2 Content ABG Base Excess ABG Methemoglobin Rob Test Hemoglobin Carboxyhemoglobin O2 Delivery Device Vent Setting Inspired O2 Critical Value Sodium 135 L Potassium 3.2 L Chloride 90 L Carbon Dioxide 27.9 Anion Gap 17 H BUN 75 H Creatinine 2.70 H Estimated GFR 23 L POC Glucose 250 H Random Glucose 184 H Lactic Acid Calcium 6.8 L* D Prot Corrected Calcium 7.8 L D Phosphorus 8.8 H Magnesium 2.3 Total Bilirubin 0.3 AST 88 H ALT 52 Alkaline Phosphatase 68 Troponin I Total Protein 5.2 L Albumin 1.3 L Ur Random Creatinine Ur Random Sodium Nasal Screen MRSA (PCR) Vancomycin Trough 18.2 H Cancelled Random Vancomycin Cancelled 02/11/18 04:00 WBC 2.9 L RBC 3.40 L Hgb 9.4 L Hct 28.7 L MCV 84.5 MCH 27.7 MCHC 32.8 RDW 19.8 H Plt Count 71 L MPV 7.8 Prelim Diff (Auto) Slide review pending Neut % (Auto) 87.7 H Lymph % (Auto) 9.0 [place] % (Auto) 3.0 Eos % (Auto) 0.1 Baso % (Auto) 0.2 Neut # (Auto) 2.6 Lymph # (Auto) 0.3 L [place] # (Auto) 0.1 Eos # (Auto) 0.0 Baso # (Auto) 0.0 WBC Differential Manual diff final Seg Neuts % (Manual) 67 Band Neuts % (Manual) 19 H Lymphocytes % (Manual) 10 Monocytes % (Manual) 4 Eosinophils % (Manual) Metamyelocytes % (Man) Myelocytes % (Man) Abs Neuts (Manual) 2.5 Nucleated RBCs/100 WBC Differential Comment . Toxic Granulation 2+ H Dohle Bodies Present H Platelet Estimate Low L Platelet Morphology Normal Basophilic Stippling Ovalocytes 1+ H Keratocytes Puncture Site Patient Temperature O2 Saturation ABG pH ABG pCO2 ABG pO2 ABG HCO3 ABG O2 Content ABG Base Excess ABG Methemoglobin Rob Test Hemoglobin Carboxyhemoglobin O2 Delivery Device Vent Setting Inspired O2 Critical Value Sodium Potassium Chloride Carbon Dioxide Anion Gap BUN Creatinine Estimated GFR POC Glucose Random Glucose Lactic Acid Calcium Prot Corrected Calcium Phosphorus Magnesium Total Bilirubin AST ALT Alkaline Phosphatase Troponin I Total Protein Albumin Ur Random Creatinine Ur Random Sodium Nasal Screen MRSA (PCR) Vancomycin Trough Random Vancomycin Result Diagrams: 02/11/18 04:00 02/11/18 04:00 Microbiology: Microbiology 02/08/18 06:36 Aerobic Blood Culture - Preliminary Blood - Peripheral No growth in 2 days Anaerobic Blood Culture - Final S. aureus MRSA 02/09/18 12:15 Gram Stain - Final Sputum - Oral Tracheal Aspirate Sputum Culture - Preliminary S. aureus MRSA 02/08/18 06:31 Aerobic Blood Culture - Preliminary Blood - Peripheral No growth in 2 days Anaerobic Blood Culture - Preliminary No growth in 2 days 02/08/18 06:35 Urine Culture - Final Catheterized Urine No growth in 48 hours 02/08/18 06:35 Streptococcus pneumoniae Antigen (M - Final Urine - Catheterized Urine Presumptive negative for streptococcus pneumoniae antigen, suggesting no current or recent infection. Infection due to Streptococcus pneumoniae cannot be ruled out since the antigen present in the sample may be below the detection limit of the test. 02/08/18 06:35 Legionella Antigen - Final Urine - Catheterized Urine Presumptive negative for Legionella pneumophila serogroup 1 antigen in urine, suggesting no recent or recurrent infection. Infection due to Legionella cannot be ruled out since other serogroups and species may cause disease, antigen may not be present in urine in early infection, and the level of antigen present in the urine may be below the detection limit of the test. Imaging: Chest X-Ray 02/08/18 06:22 CONCLUSION: 1. ETT in good position. NGT in the stomach. 2. Mild airspace disease in the right lower lung zone with patchy diffuse airspace consolidation throughout the left mid to lower lung zones. Differential considerations include developing lobar pneumonia versus aspiration. Head CT 02/08/18 06:43 CONCLUSION: 1. Postsurgical features of right posterior temporal craniotomy and resection of mass in the right temporooccipital low convexities with evidence for recurrent/residual disease similar to previous MRI exam. 2. No increased mass effect, midline shift or definitive hemorrhage. . Chest CTA 02/08/18 07:13 CONCLUSION: 1. No CT evidence for pulmonary artery embolism. 2. Dense left upper lobe airspace consolidation with left lower lobe collapse. Additional patchy nodular airspace opacities in the left upper lobe may be inflammatory/infectious in etiology. Overall findings are concerning for severe aspiration. 3. Multiple right upper lobe nodules measuring up to 1 cm. Although these may also be inflammatory or infectious in etiology given findings in the left lung, differential considerations include metastatic disease in this patient with history of brain mass. 4. Subcentimeter mediastinal nodes, likely reactive. Abdomen/Bladder Ultrasound 02/09/18 00:00 CONCLUSION: 1. Left renal cysts. Chest X-Ray 02/10/18 00:00 CONCLUSION: Improving bilateral pulmonary infiltrates. Stable small right effusion. Chest X-Ray 02/11/18 06:00 CONCLUSION: No significant interval change. Procedures: 02/08/2018: Endotracheal intubation 02/08/2018: Right femoral central line placement Assessment and Plan - Disease Oriented Problem List (1) Septic shock (2) Pneumonia (3) Lactic acidosis (4) ANTHONY (acute kidney injury) (5) Elevated troponin (6) Small cell lung cancer (7) Large B-cell lymphoma (8) Coronary artery disease (9) COPD (chronic obstructive pulmonary disease) Pertinent Non-Medical Issues: Psychosocial: Patient was born and raised in [place]. His highest level of education is high school; he worked as a net web developer. He now lives in [place], [place]. He is retired. He has been to Frederick for approximately 3 years, but they have been together for 30. Spiritual: None Legal: Patient's partner/, Osman Yuan, is designated as the healthcare surrogate decision-maker. Ethical issues impacting care: No known ethical issues impacting care at this time. Important Contacts: Patient's partner/, Osman Yuan: [phone] Prognosis: Patient is an elderly male currently admitted with respiratory failure, septic shock, pneumonia, acute kidney injury and lactic acidemia. He is sedated and intubated, requiring mechanical ventilator support as well as vasopressor support. Patient has a known history of small cell cancer and large B cell lymphoma. Overall prognosis is poor; patient is high risk for further deterioration and mortality. Code Status: No Code DNR Plan: * NO CODE * Patient has designated his , Frederick, as his healthcare surrogate decision-maker. Advanced directives are accessible in the patient's EMR. * Discussed patient with Dr. Pittman and RNSelina * Palliative care contact information was provided to the patient's family. * Symptom management: Pain: Multifactorial. Possible sources of pain include disease progression, neuropathy status post cranial radiation, infection, pneumonia, invasive lines, immobility, etc. Currently receiving fentanyl 50 mcg/ h for discomfort. Dyspnea: Currently intubated on mechanical ventilation. Contributing factors include pneumonia and COPD. CTA chest showed dense left upper lobe airspace consolidation with left lobar lobe collapse. Additional patchy nodular airspace opacities in the left upper lobe may be inflammatory/infectious in etiology; differential considerations include metastatic disease. Patient is not progressing and it is the wish of patient's healthcare surrogate and to withdraw ventilator support and convert to comfort measures. * Palliative care will continue to follow this patient throughout his hospitalization to establish trust, assist with symptom management and clarification of medical treatment goals. . Attestation Attestation: To help prompt me to consider important information that might be impacting today's encounter and assessment, information from prior notes written by myself or my colleagues may have been "brought forward" into today's note. My signature on this note, however, is an attestation that I personally performed the exam, history, and/or decision-making noted today, and, unless otherwise indicated, the interactions with patient, family, and staff as well as the review of records all occurred today. I also attest that the listed assessment and stated plan reflect my best clinical judgment today based on the combination of historical information, prior notes, and today's exam/ interactions. When time spent is documented, it refers only to time spent today by the signer, or if indicated, combined time spent today by collaborating physician/nurse practitioner. .
[2018-02-11] MEDS ORDERED: Vancomycin Inj 1,250 MG in Sodium Chlor 0.9% Inj 250 ML IV.SIG ONE (11:00)
[2018-02-11] MEDS: Morphine Inj 4 MG/ML Vial IV.PUSH SCH ×5 (11:15→22:37)
[2018-02-11] MEDS: Morphine Sulfate Inj 8 MG/ML Vial IV.PUSH PRN ×2 (12:15→18:35)
[2018-02-11] MEDS: Pantoprazole Inj 40 MG Vial IV.PUSH SCH (13:39)
[2018-02-11 17:19] VITALS: RESP 5; TEMP 98.2
--- NOTE | 2018-02-11 19:22 | P.PN ---
Subjective Interval history: was extubated and on morphine and ativan. Off o2 . poorly responsive Physical Exam Vital signs: Vital Signs 02/10/18 19:30 02/10/18 19:32 02/10/18 19:45 Temperature Pulse Rate 88 77 83 Respiratory Rate 14 15 11 L Blood Pressure 104/54 L 96/53 L Pulse Oximetry 95 98 94 L 02/10/18 20:00 02/10/18 20:15 02/10/18 20:30 Temperature 98.6 F Pulse Rate 72 82 76 Respiratory Rate 13 11 L 13 Blood Pressure 90/50 L 93/54 L 77/41 L Pulse Oximetry 94 L 94 L 94 L 02/10/18 20:45 02/10/18 21:00 02/10/18 21:15 Temperature Pulse Rate 74 70 72 Respiratory Rate 13 12 14 Blood Pressure 81/51 L 85/54 L 91/54 L Pulse Oximetry 94 L 94 L 94 L 02/10/18 21:30 02/10/18 21:45 02/10/18 22:00 Temperature Pulse Rate 72 75 78 Respiratory Rate 15 13 11 L Blood Pressure 88/54 L 102/57 L 124/59 L Pulse Oximetry 95 92 L 93 L 02/10/18 22:15 02/10/18 22:30 02/10/18 22:45 Temperature Pulse Rate 76 73 77 Respiratory Rate 11 L 12 12 Blood Pressure 113/59 L 98/57 L 115/56 L Pulse Oximetry 94 L 95 95 02/10/18 23:00 02/10/18 23:15 02/10/18 23:30 Temperature Pulse Rate 75 75 70 Respiratory Rate 12 12 12 Blood Pressure 104/58 L 103/58 L 112/60 Pulse Oximetry 95 95 86 L 02/10/18 23:45 02/10/18 23:47 02/11/18 00:00 Temperature 97.9 F Pulse Rate 72 67 72 Respiratory Rate 12 16 11 L Blood Pressure 117/68 109/66 Pulse Oximetry 95 96 95 02/11/18 00:15 02/11/18 00:30 02/11/18 00:45 Temperature Pulse Rate 73 75 71 Respiratory Rate 15 10 L 11 L Blood Pressure 105/58 L 94/55 L 102/55 L Pulse Oximetry 96 95 96 02/11/18 01:00 02/11/18 01:15 02/11/18 01:30 Temperature Pulse Rate 76 72 70 Respiratory Rate 13 11 L 14 Blood Pressure 97/56 L 97/53 L 93/56 L Pulse Oximetry 96 96 96 02/11/18 01:45 02/11/18 02:00 02/11/18 02:15 Temperature Pulse Rate 71 70 67 Respiratory Rate 10 L 13 15 Blood Pressure 99/57 L 94/55 L 109/55 L Pulse Oximetry 96 96 96 02/11/18 02:30 02/11/18 02:45 02/11/18 03:00 Temperature Pulse Rate 70 66 66 Respiratory Rate 12 12 12 Blood Pressure 103/53 L 97/51 L 98/54 L Pulse Oximetry 96 96 96 02/11/18 03:15 02/11/18 03:30 02/11/18 03:34 Temperature Pulse Rate 64 63 Respiratory Rate 15 12 14 Blood Pressure 92/59 L 97/59 L Pulse Oximetry 96 96 96 02/11/18 03:45 02/11/18 04:00 02/11/18 04:16 Temperature 98.4 F Pulse Rate 68 66 70 Respiratory Rate 12 12 11 L Blood Pressure 135/76 117/61 148/63 H Pulse Oximetry 96 96 96 02/11/18 04:30 02/11/18 04:45 02/11/18 05:00 Temperature Pulse Rate 72 75 67 Respiratory Rate 14 14 13 Blood Pressure 116/59 L 122/59 L 95/54 L Pulse Oximetry 96 96 95 02/11/18 05:15 02/11/18 05:30 02/11/18 05:45 Temperature Pulse Rate 73 79 63 Respiratory Rate 12 12 14 Blood Pressure 105/56 L 104/56 L 97/56 L Pulse Oximetry 96 96 96 02/11/18 06:00 02/11/18 06:16 02/11/18 06:30 Temperature Pulse Rate 77 69 65 Respiratory Rate 12 13 13 Blood Pressure 91/50 L 107/55 L 102/52 L Pulse Oximetry 95 96 96 02/11/18 06:45 02/11/18 07:00 02/11/18 07:01 Temperature Pulse Rate 72 70 67 Respiratory Rate 13 12 15 Blood Pressure 81/50 L 97/62 L Pulse Oximetry 95 96 96 02/11/18 07:22 02/11/18 07:30 02/11/18 07:46 Temperature Pulse Rate 69 71 76 Respiratory Rate 12 12 13 Blood Pressure 123/63 133/63 131/71 Pulse Oximetry 97 96 96 02/11/18 07:52 02/11/18 08:00 02/11/18 08:16 Temperature 98.6 F Pulse Rate 67 76 Respiratory Rate 14 11 L 11 L Blood Pressure 130/59 L 139/65 Pulse Oximetry 95 97 95 02/11/18 08:31 02/11/18 08:45 02/11/18 09:00 Temperature Pulse Rate 67 73 71 Respiratory Rate 12 11 L 12 Blood Pressure 129/59 L 126/60 117/67 Pulse Oximetry 96 95 87 L 02/11/18 09:15 02/11/18 09:30 02/11/18 09:46 Temperature Pulse Rate 72 78 76 Respiratory Rate 13 12 11 L Blood Pressure 127/57 L 130/60 143/65 H Pulse Oximetry 96 84 L 02/11/18 10:00 02/11/18 10:01 02/11/18 10:15 Temperature Pulse Rate 77 69 80 Respiratory Rate 12 7 L 11 L Blood Pressure 132/63 136/60 Pulse Oximetry 02/11/18 10:30 02/11/18 10:45 02/11/18 11:00 Temperature Pulse Rate 76 68 113 H Respiratory Rate 12 10 L 12 Blood Pressure 122/69 121/62 85/55 L Pulse Oximetry 02/11/18 11:15 02/11/18 11:30 02/11/18 11:45 Temperature Pulse Rate 114 H 101 H 100 H Respiratory Rate 9 L 7 L 6 L Blood Pressure 101/54 L 91/53 L 83/47 L Pulse Oximetry 92 L 78 L 73 L 02/11/18 12:00 02/11/18 12:15 02/11/18 12:31 Temperature 97.2 F L Pulse Rate 97 H 87 73 Respiratory Rate 7 L 7 L 6 L Blood Pressure 78/53 L 88/51 L 155/74 H Pulse Oximetry 77 L 78 L 02/11/18 12:45 02/11/18 13:00 02/11/18 13:15 Temperature Pulse Rate 94 H 93 H 92 H Respiratory Rate 6 L 8 L 6 L Blood Pressure 73/40 L 74/48 L 74/48 L Pulse Oximetry 72 L 71 L 71 L 02/11/18 13:30 02/11/18 13:45 02/11/18 14:00 Temperature Pulse Rate 89 88 86 Respiratory Rate 8 L 8 L 6 L Blood Pressure 90/55 L 81/50 L 79/48 L Pulse Oximetry 70 L 71 L 71 L 02/11/18 14:15 02/11/18 14:30 02/11/18 14:45 Temperature Pulse Rate 91 H 84 109 H Respiratory Rate 10 L 10 L 10 L Blood Pressure 71/46 L 79/48 L 75/45 L Pulse Oximetry 68 L 64 L 63 L 02/11/18 15:00 02/11/18 15:15 02/11/18 15:30 Temperature Pulse Rate 98 H 93 H 91 H Respiratory Rate 7 L 6 L 5 L Blood Pressure 81/50 L 78/52 L 80/47 L Pulse Oximetry 64 L 60 L 67 L 02/11/18 15:45 02/11/18 16:00 02/11/18 16:15 Temperature 98.2 F Pulse Rate 93 H 96 H 94 H Respiratory Rate 5 L 5 L 5 L Blood Pressure 75/43 L 77/46 L 79/47 L Pulse Oximetry 65 L 65 L 68 L 02/11/18 16:30 02/11/18 16:45 02/11/18 17:00 Temperature Pulse Rate 94 H 96 H 108 H Respiratory Rate 5 L 5 L 5 L Blood Pressure 70/43 L 70/51 L 60/42 L Pulse Oximetry 58 L 64 L 63 L 02/11/18 17:15 Temperature Pulse Rate 106 H Respiratory Rate 5 L Blood Pressure 71/45 L Pulse Oximetry 64 L Intake & Output 02/11/18 02/11/18 02/12/18 06:59 18:59 06:59 Intake Total 1443 / 1443 Output Total 225 / 225 Balance 1218 / 1218 Weight 107.4 kg Intake: IV 1100 / 1100 Sodium Bicarbonate 8.4% Inj 75 1000 / 1000 MEQ In D5W Inj 925 ML @ 84 mls/ hr IV.CONT .[id number] [facility] Rx#: [id number] Zosyn 3.375 GM Premix 50 ML @ 100 / 100 100 mls/hr IV.SIG Q6H [facility] Rx#: [id number] Tube Feeding 343 / 343 Output: Urine 150 / 150 Stool 75 / 75 Other: Date of Last Bowel Movement 02/09/18 02/11/18 GENERAL: lethargic elderly w/M SKIN: Cool and dry. HEAD: Normocephalic. EYES: No scleral icterus. No injection or drainage. NECK: Supple, trachea midline. No JVD or lymphadenopathy. CARDIOVASCULAR: Regular rate and rhythm without murmurs, gallops, or rubs. RESPIRATORY: Breath sounds equal bilaterally and decreased. GASTROINTESTINAL: Abdomen soft, nondistended. MUSCULOSKELETAL: mild cyanosis, and edema. Neuro : sedated. - Urinary Catheter Management Indwelling Urethral Catheter Cath placed during this visit: yes Reason for continuing: Acute urinary retention Insertion date: 02/08/18 Insertion time: 06:32 Results - Labs CBC & Chem 7: 02/11/18 04:00 02/11/18 04:00 Laboratory Results - last 24 hr 02/10/18 02/11/18 02/11/18 23:31 04:00 04:00 WBC RBC Hgb Hct MCV MCH MCHC RDW Plt Count MPV Prelim Diff (Auto) Neut % (Auto) Lymph % (Auto) [place] % (Auto) Eos % (Auto) Baso % (Auto) Neut # (Auto) Lymph # (Auto) [place] # (Auto) Eos # (Auto) Baso # (Auto) WBC Differential Seg Neuts % (Manual) Band Neuts % (Manual) Lymphocytes % (Manual) Monocytes % (Manual) Abs Neuts (Manual) Differential Comment Toxic Granulation Dohle Bodies Platelet Estimate Platelet Morphology Ovalocytes Sodium 135 L Potassium 3.2 L Chloride 90 L Carbon Dioxide 27.9 Anion Gap 17 H BUN 75 H Creatinine 2.70 H Estimated GFR 23 L POC Glucose 250 H Random Glucose 184 H Calcium 6.8 L* D Prot Corrected Calcium 7.8 L D Phosphorus 8.8 H Magnesium 2.3 Total Bilirubin 0.3 AST 88 H ALT 52 Alkaline Phosphatase 68 Total Protein 5.2 L Albumin 1.3 L Vancomycin Trough 18.2 H Cancelled Random Vancomycin Cancelled 02/11/18 04:00 WBC 2.9 L RBC 3.40 L Hgb 9.4 L Hct 28.7 L MCV 84.5 MCH 27.7 MCHC 32.8 RDW 19.8 H Plt Count 71 L MPV 7.8 Prelim Diff (Auto) Slide review pending Neut % (Auto) 87.7 H Lymph % (Auto) 9.0 Whitfield % (Auto) 3.0 Eos % (Auto) 0.1 Baso % (Auto) 0.2 Neut # (Auto) 2.6 Lymph # (Auto) 0.3 L Whitfield # (Auto) 0.1 Eos # (Auto) 0.0 Baso # (Auto) 0.0 WBC Differential Manual diff final Seg Neuts % (Manual) 67 Band Neuts % (Manual) 19 H Lymphocytes % (Manual) 10 Monocytes % (Manual) 4 Abs Neuts (Manual) 2.5 Differential Comment . Toxic Granulation 2+ H Dohle Bodies Present H Platelet Estimate Low L Platelet Morphology Normal Ovalocytes 1+ H Sodium Potassium Chloride Carbon Dioxide Anion Gap BUN Creatinine Estimated GFR POC Glucose Random Glucose Calcium Prot Corrected Calcium Phosphorus Magnesium Total Bilirubin AST ALT Alkaline Phosphatase Total Protein Albumin Vancomycin Trough Random Vancomycin Microbiology 02/09/18 12:15 Sputum - Oral Tracheal Aspirate Gram Stain - Final 02/09/18 12:15 Sputum - Oral Tracheal Aspirate Sputum Culture - Final S. aureus MRSA 02/08/18 06:36 Blood - Peripheral Aerobic Blood Culture - Preliminary No growth in 3 days 02/08/18 06:36 Blood - Peripheral Anaerobic Blood Culture - Final S. aureus MRSA 02/08/18 06:31 Blood - Peripheral Aerobic Blood Culture - Preliminary No growth in 3 days 02/08/18 06:31 Blood - Peripheral Anaerobic Blood Culture - Preliminary No growth in 3 days - Imaging Impressions Chest X-Ray 02/11/18 06:00 CONCLUSION: No significant interval change. Assessment and Plan - Assessment (1) Brain tumor Code(s): D49.6 - Neoplasm of unspecified behavior of brain Status: Acute (2) Dementia Code(s): F03.90 - Unspecified dementia without behavioral disturbance Status: Acute (3) Cranial irradiation Status: Acute (4) COPD (chronic obstructive pulmonary disease) Code(s): J44.9 - Chronic obstructive pulmonary disease, unspecified Status: Acute (5) Pain Code(s): R52 - Pain, unspecified Status: Acute (6) Anxiety Code(s): F41.9 - Anxiety disorder, unspecified Status: Acute (7) Debility Code(s): R53.81 - Other malaise Status: Acute (8) Sepsis associated hypotension Code(s): A41.9 - Sepsis, unspecified organism; I95.9 - Hypotension, unspecified Status: Acute - Plan 1. Cont off O2 2. Morphine 5 mg Q3h prn and IV Ativan 1 mg. 3. D/c all antibiotics and pressors 4. Comfort care 5. Hospice to see. 6. Stop Tube feeds
[2018-02-11 22:45] VITALS: BP 56/36; O2SAT 67
[2018-02-12] MEDS: Morphine Inj 4 MG/ML Vial IV.PUSH SCH (01:36)
[2018-02-12 04:00] VITALS: PULSE 117
== END 2018-02-12 02:30 | disposition expired ==
LOC: NEPC 06:08 → NEDA 07:34 → HIMC 10:46
PROVIDERS: ADMIT Internal Medicine Critical Care Medicine; ATTEND Internal Medicine Critical Care Medicine